=== PATIENT | female | born 1965 | race Two or more races ===

== ENCOUNTER 2020-04-18 09:12 | Emergency (ER) | payer MEDICAID, SELFPAY ==
[2020-04-18 09:27] VITALS: BP 143/84; PULSE 93; RESP 18; TEMP 37.4; O2SAT 99; BMI 59.4
--- NOTE | 2020-04-18 09:33 | ED_ITS ---
HPI - Nausea/Vomiting/Diarrhea General Chief complaint: Nausea/Vomiting/Diarrhea Stated complaint: VOMITING DIARRHEA Time Seen by Provider: 04/18/20 09:23 Source: patient Mode of arrival: ambulatory Limitations: no limitations History of Present Illness HPI Narrative: 55 yo female presenting with N/V/D that started yesterday. She was recently exposed to a person who was later found to be COVID positive and this person exhibited the same symptoms. She has mild abd discomfort that is chronic. She has not vomited since last night. She was able to eat some breakfast this morning. No other persons in the home are ill. MD elicited complaint: nausea, vomiting and diarrhea Onset (ago): day(s) (1) Related Data Previous Rx's Medication Instructions Recorded ondansetron HCl [Zofran] 4 mg PO Q8H PRN #14 tab 04/18/20 Allergies Allergy/AdvReac Type Severity Reaction Status Date / Time No Known Allergies Allergy Mild N/A Unverified 03/27/20 17:15 none Allergy Unknown Uncoded 02/18/20 00:00 Review of Systems Review of Systems: Constitutional: No Fever, No Chills ENT/Mouth: No sore throat, No Rhinorrhea, No Swallowing Difficulty Eyes: No Eye Pain, No Swelling, No Redness Cardiovascular: No Chest Pain, No SOB, No Orthopnea Respiratory: No Cough, No Sputum, No Wheezing Gastrointestinal: + Nausea, + Vomiting, + Diarrhea (once), + abdominal Pain (chronically), No Hematochezia, No Melena Genitourinary: No Dysuria, No Urinary Frequency, No Hematuria Musculoskeletal: No joint pain, + Myalgias Skin: No Skin Lesions, No rash Neuro: No Weakness, No Numbness, No Dizziness, + Headache (mild) Psych: No Anxiety/Panic, No Depression Heme/Lymph: No Bruising, No Lymphadenopathy Endocrine: No Polyuria, No Polydipsia All other 10 point ROS are negative. [facility] Past Medical History Attestation statement: The following information was validated with the patient. Medical History Diabetes Hypertension Social History Social History Smoking Status: Never smoker Use of substances other than those prescribed or required for medical reasons: No Advance Directives: No Advance Directives Information Provided: No Physical Exam Vital Signs and I&O and Narrative: Vital Signs and I&O: Vital Signs Temp 99.3 F 04/18/20 09:27 Pulse 93 04/18/20 09:27 Resp 18 04/18/20 09:27 BP 143/84 H 04/18/20 09:27 Pulse Ox 99 04/18/20 09:27 Intake & Output 04/17/20 04/18/20 04/18/20 18:59 06:59 18:59 Weight 138 kg Body Mass Index 59.4 Appearance: Alert. Oriented X3. No acute distress. Eyes: Pupils equal, round and reactive to light. ENT: Pharynx normal. Neck: Normal inspection. Neck supple. CVS: Normal heart rate and rhythm. Pulses normal. Respiratory: No respiratory distress. Breath sounds normal. Abdomen: Soft and nontender. +BS x4 Skin: Skin warm and dry. Normal skin color. Normal skin turgor. No rashes. Extremities: No lower extremity edema. Neuro: Oriented X 3. No motor deficit. No sensory deficit. Course Course Course Narrative: 55 y/o female presenting with mild GI symotoms after exposure to COVID + person who had the same symptons. She is in no distress and VSS,. Will COVID swab and d/c. She was encouraged to f/u with her PCP. MDM - Nausea/Vomiting/Diarrhea MDM Narrative Medical decision making narrative: Likely COVID-19 related given her exposure Differential Diagnosis Differential diagnosis: Likely gastroenteritis, drug-induced nausea and vomiting and dehydration Medical Records Attestation: I reviewed the patient's medical records. Discharge Plan Discharge Clinical Impression: Gastroenteritis Patient Disposition: Home, Self-Care Instructions: Acute Nausea and Vomiting (ED) Additional Instructions: You were tested for COVID-19 today. We will call you with the results in 2-4 days. If you develop shortness of breath, difficulty breathing, or chest pain call 911 or come back to the ER for evaluation. Prescriptions: New ondansetron HCl [Zofran] 4 mg tablet 4 mg PO Q8H PRN (Reason: nausea and vomiting) Qty: 14 RF: 0
== END 2020-04-18 10:03 | disposition home or self-care (01) ==
PROVIDERS: Physician Assistant; Emergency Provider Internal Medicine; PCP Internal Medicine
DX: K52.9 Noninfective gastroenteritis and colitis, unspecified (principal); Z20.828 Contact with and (suspected) exposure to other viral communicable diseases; Z79.899 Other long term (current) drug therapy
CPT/HCPCS: 87635; 99283; 99284

== ENCOUNTER 2020-05-03 09:03 | Emergency (ER) | payer MEDICAID, SELFPAY ==
[2020-05-03 09:26] VITALS: BP 147/89; PULSE 103; RESP 18; TEMP 36.8; O2SAT 96; BMI 29.2
[2020-05-03 10:00] VITALS: BP 133/80; PULSE 78; RESP 16; O2SAT 98
--- NOTE | 2020-05-03 10:19 | ED.GENADULT ---
HPI - General Adult General Chief complaint: Headache Stated complaint: HEADACHE Time Seen by Provider: 05/03/20 10:14 Source: patient Mode of arrival: ambulatory Limitations: no limitations History of Present Illness HPI narrative: patient comes to emergency room complaining of headache for 1 day and feeling tired for 3 days. Patient denies any trauma. Related Data Previous Rx's Medication Instructions Recorded ondansetron HCl [Zofran] 4 mg PO Q8H PRN #14 tab 04/18/20 Allergies Allergy/AdvReac Type Severity Reaction Status Date / Time No Known Allergies Allergy Mild N/A Unverified 03/27/20 17:15 none Allergy Unknown Uncoded 02/18/20 00:00 Review of Systems Review of Systems: Constitutional : No Weight loss, No Fever, No Chills, No Night Sweats, No Fatigue, No Malaise ENT/Mouth : No Hearing loss, No Ear Pain, No Nasal Congestion, No Sinus Pain, No Hoarseness, No sore throat, No Rhinorrhea, No Swallowing Difficulty Eyes: No Eye Pain, No Swelling, No Redness, No Foreign Body, No Discharge, No Vision Changes Cardiovascular : No Chest Pain, No SOB, No Dyspnea on Exertion, No Orthopnea, No Edema, No Palpitations Respiratory : No Cough, No Sputum, No Wheezing, No Smoke Exposure, No Dyspnea Gastrointestinal : No Nausea, No Vomiting, No Diarrhea, No Constipation, No abdominal Pain, No Hematochezia, No Melena Genitourinary : no irregular bleeding, No Dysuria, No Urinary Frequency, No Hematuria, No Urinary Incontinence, No Urgency, No Flank Pain, No Urinary Flow Changes, No Hesitancy Musculoskeletal : No joint pain, No Myalgias, No Joint Swelling Skin : No Skin Lesions, No rash Neuro : No Weakness, No Numbness, No Paresthesias, No Loss of Consciousness, No Dizziness, global headache Psych : No Anxiety/Panic, No Depression, No SI/HI/AH/VH, No Social Issues, Heme/Lymph: No Bruising, No Bleeding,No Lymphadenopathy Endocrine : No Polyuria, No Polydipsia, No Temperature Intolerance [facility] Past Medical History Medical History (Updated 05/03/20 @ 13:00 by Janell Madison MD) Asthma Depression Diabetes Epilepsy Hyperlipidemia Hypertension Social History Social History Smoking Status: Never smoker Advance Directives: No Advance Directives Information Provided: No Physical Exam Vital Signs: Vital Signs: Vital Signs Temp Pulse Resp BP Pulse Ox 05/03/20 13:16 80 16 133/83 97 05/03/20 10:00 78 16 133/80 98 05/03/20 09:26 98.3 F 103 H 18 147/89 H 96 Body Mass Index 29.2 Appearance: Alert. Oriented X3. No acute distress. Eyes: Pupils equal, round and reactive to light. seems to have photophobia ENT: Pharynx normal. Neck: Normal inspection. Neck supple. No lymph nodes noted. No crepitus CVS: Normal heart rate and rhythm. Pulses normal. Normal S1 and S2 Respiratory: No respiratory distress. Breath sounds normal. No Wheezing. No rales Abdomen: Soft and nontender. No rigidity. No distention. good BS x4 Skin: Skin warm and dry. Normal skin color. Normal skin turgor. Extremities: No lower extremity edema. No lower extremity edema. No Lacerations. No Rash Neuro: Oriented X 3. No motor deficit. No sensory deficit. Moving all extermities. No slurred speech. Course Course Course Narrative: patient feeling better, headache nearly gone, patient ready for discharge Medical Decision Making Lab Data Result diagrams: 05/03/20 10:54 05/03/20 10:54 Labs: Lab Results 05/03/20 05/03/20 05/03/20 Range/Units 10:54 10:54 10:54 WBC 8.0 (4.8-10.8) X10*3/uL RBC 4.37 (4.20-5.50) X10*6/uL Hgb 12.9 (12.0-16.0) g/dl Hct 38.8 (37-47) % MCV 88.8 (80-98) fL MCH 29.5 (27.0-33.0) pg MCHC 33.2 (31.0-35.0) g/dl RDW 12.4 (11.0-16.0) % Plt Count 246 (160-400) X10*3/uL MPV 9.9 (9.4-12.3) fL Immature Gran % (Auto) 0.4 (0.0-0.4) % Neut % (Auto) 69.0 (45-73) % Lymph % (Auto) 22.6 (20-40) % [place] % (Auto) 5.7 (2-11) % Eos % (Auto) 1.9 (0-4) % Baso % (Auto) 0.4 (0-2) % Lymph # (Auto) 1.8 (1.2-4.9) X10*3/uL [place] # (Auto) 0.5 (0.1-1.2) X10*3/uL Eos # (Auto) 0.2 (0.0-0.4) X10*3/uL Baso # (Auto) 0.0 (0.0-0.2) X10*3/uL Abs Immat Gran (auto) 0.03 (0.00-0.03) X10*3/uL Absolute Neuts (auto) 5.5 (2.0-8.3) X10*3/uL Absolute Nucleated RBC 0.000 (0.0-0.012) X10*3/uL Nucleated RBC % (auto) 0.0 (0.0-0.2) /100WBC Sodium Cancelled Potassium Cancelled Chloride Cancelled Carbon Dioxide Cancelled Anion Gap Cancelled BUN Cancelled Creatinine Cancelled Estim Creat Clear Calc Cancelled Estimated GFR Cancelled Random Glucose Cancelled Calcium Cancelled Troponin I High Sens < 3.5 (<3.5-17.0) ng/L ECG Data Attestation: I personally reviewed and interpreted this ECG as follows: ( heart rate 86, normal sinus rhythm, QTC 421, no ST segment elevations or depressions, non speciificn T -wave inversions in III) Discharge Plan Discharge Clinical Impression: Migraine Qualifiers: Migraine type: unspecified Status migrainosus presence: without status migrainosus Intractability: not intractable Qualified Code(s): G43.909 - Migraine, unspecified, not intractable, without status migrainosus Patient Disposition: Home, Self-Care Instructions: Acute Headache (ED) Additional Instructions: Please follow-up with your primary care physician tomorrow. If you have any worsening or new symptoms, please return to the emergency room or call 911 Prescriptions: No Action ondansetron HCl [Zofran] 4 mg tablet 4 mg PO Q8H PRN (Reason: nausea and vomiting) Qty: 14 RF: 0 Interventions: ED Discharge Assessment Last Done: 05/03/20 13:13 Discharge Date/Time: 05/03/20 13:21
[2020-05-03 11:02] LABS: MANUAL DIFF FLAG NO
[2020-05-03 11:05] LABS: Basophils Percent Auto 0.4 % (0-2); Eosinophils Absolute Auto 0.2 X10*3/uL (0.0-0.4); Eosinophils Percent Auto 1.9 % (0-4); Hematocrit 38.8 % (37-47); Hemoglobin 12.9 g/dl (12.0-16.0); Imm Gran Abs Auto 0.03 X10*3/uL (0.00-0.03); Imm Gran Pct Auto 0.4 % (0.0-0.4); Lymphocytes Absolute Auto 1.8 X10*3/uL (1.2-4.9); Lymphocytes Percent Auto 22.6 % (20-40); Mean Corpuscular HGB Conc 33.2 g/dl (31.0-35.0); Mean Corpuscular Hemoglobin 29.5 pg (27.0-33.0); Mean Corpuscular Volume 88.8 fL (80-98); Mean Platelet Volume 9.9 fL (9.4-12.3); Monocytes Absolute Auto 0.5 X10*3/uL (0.1-1.2); Monocytes Percent Auto 5.7 % (2-11); Neutrophils Absolute Auto 5.5 X10*3/uL (2.0-8.3); Platelet Count 246 X10*3/uL (160-400); Red Blood Count 4.37 X10*6/uL (4.20-5.50); Red Cell Distribution Width 12.4 % (11.0-16.0)
[2020-05-03] MEDS: ondansetron HCL 4 MG/2 ML VIAL IVPUSH (11:35)
[2020-05-03] MEDS: 0.9 % Sodium Chloride 1,000 ML 999 ML IVCONT (11:35)
[2020-05-03] MEDS: Ketorolac Tromethamine 15 MG/ML VIAL IVPUSH (11:36)
[2020-05-03 11:38] LABS: Troponin-I High Sensitivity < 3.5 ng/L (<3.5-17.0)
[2020-05-03] MEDS: diphenhydrAMINE HCL 50 MG/ML VIAL IVPUSH (11:38)
[2020-05-03 13:16] VITALS: BP 133/83; PULSE 80; RESP 16; O2SAT 97
== END 2020-05-03 13:21 | disposition home or self-care (01) ==
PROVIDERS: Emergency Provider Emergency Medicine
DX: G43.909 Migraine, unspecified, not intractable, without status migrainosus (principal); Z79.899 Other long term (current) drug therapy
CPT/HCPCS: 36415; 80048; 84484; 85025; 96361; 96374; 96375; 99284; J1200; J1885; J2405

== ENCOUNTER → 2020-05-22 15:49 | Outpatient (BNVA) | payer MEDICAID, SELFPAY | PROVIDERS: Visit Provider Internal Medicine Gastroenterology | DX: K21.9 Gastro-esophageal reflux disease without esophagitis (principal); K59.09 Other constipation; E11.43 Type 2 diabetes mellitus with diabetic autonomic (poly)neuropathy; K31.84 Gastroparesis; Z79.4 Long term (current) use of insulin; Z79.899 Other long term (current) drug therapy | CPT/HCPCS: 99212 ==

== ENCOUNTER 2020-06-17 12:57 | Emergency (ER) | payer MEDICAID, SELFPAY ==
[2020-06-17 13:06] VITALS: BP 164/91; PULSE 103; RESP 16; TEMP 36.5; O2SAT 95; BMI 27.4
--- NOTE | 2020-06-17 14:06 | ED_ITS ---
HPI - Extremity Injury (Lower) General Chief Complaint: Extremity Injury, Lower Stated Complaint: swollen left foot Time Seen by Provider: 06/17/20 14:04 Source: patient Mode of arrival: ambulatory Limitations: no limitations History of Present Illness HPI Narrative: states slight pain between the 4th and 5th toe and noted slight redness on top of the foot. No fever or chills. No fall or injury. she does report she walked barefoot outside her house several days ago in the rain and notices some slight callus under the foot. Onset (ago): day(s) Relieving factors: nothing Other symptoms: none Related Data Home Medications Medication Instructions Recorded Confirmed acetaminophen 500 mg capsule 500 mg PO Q6H PRN 05/22/20 05/22/20 atorvastatin 80 mg tablet 80 mg PO DAILY 05/22/20 05/22/20 canagliflozin 100 mg tablet 100 mg PO DAILY 05/22/20 05/22/20 duloxetine 60 mg capsule,delayed 60 mg PO DAILY 05/22/20 05/22/20 release fluticasone propionate 50 1 spray INTRANASAL DAILY 05/22/20 05/22/20 mcg/actuation nasal spray,suspension ibuprofen 600 mg tablet 600 mg PO Q8H PRN 05/22/20 05/22/20 insulin glargine 100 unit/mL (3 10 unit SUBCUT QPM 05/22/20 05/22/20 mL) subcutaneous pen insulin lispro 100 unit/mL 5.5 unit SUBCUT BEDTIME 05/22/20 05/22/20 subcutaneous half-unit pen levetiracetam 1,000 mg tablet 1,500 mg PO Q12H 05/22/20 05/22/20 lisinopril 2.5 mg tablet 2.5 mg PO DAILY 05/22/20 05/22/20 meclizine 25 mg tablet 25 mg PO DAILY PRN 05/22/20 05/22/20 sucralfate 100 mg/mL oral 10 ml PO BID 05/22/20 05/22/20 suspension Previous Rx's Medication Instructions Recorded ondansetron HCl [Zofran] 4 mg PO Q8H PRN #14 tab 04/18/20 omeprazole 40 mg capsule,delayed 40 mg PO BID 30 Days #60 cap 05/22/20 release cephalexin [Keflex] 500 mg PO TID 7 Days #21 cap 06/17/20 doxycycline monohydrate 100 mg PO BID 10 Days #20 cap 06/17/20 Allergies Allergy/AdvReac Type Severity Reaction Status Date / Time No Known Allergies Allergy Mild N/A Verified 06/17/20 13:09 Review of Systems Review of Systems: Constitutional: No Weight loss, No Fever, No Chills, No N ight Sweats, No Fatigue, No Malaise ENT/Mouth: No Hearing loss, No Ear Pain, No Nasal Congestion, No Sinus Pain, No Hoarseness, No sore throat Eyes: No Eye Pain, No Swelling, No Redness, No Foreign Body Cardiovascular: No Chest Pain, No SOB, No Dyspnea on Exertion, No Orthopnea Respiratory: No Cough, No Sputum, No Wheezing, No Smoke Exposure, No Dyspnea Gastrointestinal: No Nausea, No Vomiting, No Diarrhea, No Constipation, No abdominal Pain Genitourinary: no irregular bleeding, No Dysuria, No Urinary Frequency, No Hematuria Musculoskeletal: No joint pain, No Myalgias, No Joint Swelling Skin: No Skin Lesions, As noted in HPI Neuro: No Weakness, No Numbness, No Paresthesias, No Loss of Consciousness, No Dizziness, No Headache Psych: No Social Issues Heme/Lymph: No Bruising, No Bleeding,No Lymphadenopathy Endocrine: No Polyuria, No Polydipsia, No Temperature Intolerance Yes all other systems are reviewed and are negative [facility] Past Medical History Medical History Asthma Depression Diabetes Epilepsy Hyperlipidemia Hypertension Surgical History H/O section H/O esophagogastroduodenoscopy (03/14/18) History of ankle surgery Hx of colonoscopy (~06/2018) Social History Social History Alcohol intake: never Smoking Status: Never smoker Use of substances other than those prescribed or required for medical reasons: No Advance Directives: No Advance Directives Information Provided: Yes Physical Exam Vital Signs: Vital Signs: Last Vital Signs Temp 97.7 F 06/17/20 13:06 Pulse 103 H 06/17/20 13:06 Resp 16 06/17/20 13:06 BP 164/91 H 06/17/20 13:06 Pulse Ox 95 06/17/20 13:06 Body Mass Index 27.4 Reviewed Const: General: cooperative and healthy appearing; No acute distress or intoxicated appearing Nutritional Appearance: average body habitus Orientation/consciousness: patient oriented x3 HENMT: Head: Yes normal to inspection Ears: hearing grossly normal bilaterally Chest: Chest palpation & inspection: normal inspection of the chest Resp: Effort & Inspection: normal respiratory effort Cardio: Jugular venous distension: no JVD Skin: General skin exam: no rashes or lesions noted Neuro: General: patient oriented x3 Extrem: General: Yes normal to inspection Ankle/foot/toe images: 1. Area of very slight erythema with some macerated area between the toe and callus underneath on the plantar aspect smaller than a 0.5 cm annular area. This callus was de roofed using 18 gauge needle with sligh t purulent discharge. Discharge Plan Discharge Clinical Impression: Callus of foot Cellulitis Qualifiers: Site of cellulitis: extremity Site of cellulitis of extremity: lower extremity Laterality: left Qualified Code(s): L03.116 - Cellulitis of left lower limb Patient Disposition: Home, Self-Care Instructions: Cellulitis (ED) Additional Instructions: Warm compresses Epson Slat soaks take Your antibiotic as prescribed Have recheck in 2 days Return if any concerns or worsening symptoms Thank you Prescriptions: New doxycycline monohydrate 100 mg capsule 100 mg PO BID 10 Days Qty: 20 RF: 0 cephalexin [Keflex] 500 mg capsule 500 mg PO TID 7 Days Qty: 21 RF: 0 No Action ondansetron HCl [Zofran] 4 mg tablet 4 mg PO Q8H PRN (Reason: nausea and vomiting) Qty: 14 RF: 0 atorvastatin 80 mg tablet 80 mg PO DAILY RF: 0 duloxetine 60 mg capsule,delayed release(DR/EC) 60 mg PO DAILY RF: 0 sucralfate [Carafate] 100 mg/mL suspension 10 ml PO BID RF: 0 insulin lispro [Humalog Robert KwikPen U-100] 100 unit/mL insulin pen, half- unit 5.5 unit subcut BEDTIME RF: 0 Lantus Solostar U-100 Insulin 100 unit/mL (3 mL) insulin pen 10 unit subcut QPM RF: 0 ibuprofen 600 mg tablet 600 mg PO Q8H PRNRF: 0 acetaminophen [Mapap (acetaminophen)] 500 mg capsule 500 mg PO Q6H PRNRF: 0 levetiracetam 1,000 mg tablet 1,500 mg PO Q12H RF: 0 lisinopril 2.5 mg tablet 2.5 mg PO DAILY RF: 0 fluticasone propionate [Allergy Relief (fluticasone)] 50 mcg/actuation spray,suspension 1 spray intranasal DAILY RF: 0 Invokana 100 mg tablet 100 mg PO DAILY RF: 0 meclizine 25 mg tablet 25 mg PO DAILY PRN (Reason: dizziness) RF: 0 omeprazole 40 mg capsule,delayed release(DR/EC) 40 mg PO BID 30 Days Qty: 60 RF: 4 Referrals: Rachael Brown MD [Primary Care Provider] - 3 days
== END 2020-06-17 14:29 | disposition home or self-care (01) ==
PROVIDERS: Emergency Provider Emergency Medicine; PCP Internal Medicine
DX: L03.116 Cellulitis of left lower limb (principal); L84 Corns and callosities; Z79.899 Other long term (current) drug therapy
CPT/HCPCS: 99283

== ENCOUNTER 2020-07-21 13:43 | Emergency (ER) | payer MEDICAID, SELFPAY ==
[2020-07-21 14:22] VITALS: BP 158/85; PULSE 97; RESP 18; TEMP 37.2; O2SAT 99; BMI 29.2
--- NOTE | 2020-07-21 14:26 | PC.NURSE ---
SANJAY THOMPSON [employer] MECHANIC EVALUATING PATIENT IN TRIAGE. PLAN IS TO DC FROM WAITING ROOM. [place] [facility] USED FOR EVALUATION. PT AGREEABLE TO PLAN. ALERT AND ORIENTED X 3. SKIN WARM AND DRY. RESP UNLABORED. DENIES N/V. C/O PAIN FROM RIGHT BUTTOCK DOWN LEG. NEUROS WNL. NO DISTRESS NOTED. +CMS. AMBULATORY, GAIT STEADY
--- NOTE | 2020-07-21 14:31 | ED.BACK ---
HPI - Back Pain/Injury General Chief Complaint: Extremity Injury, Lower Stated Complaint: hip pain no inj Time Seen by Provider: 07/21/20 14:24 Source: patient Mode of arrival: ambulatory Limitations: no limitations History of Present Illness HPI Narrative: Right lower back pain radiating down to the right leg for past 3 days. No injury. No lower extremity swelling. No rash. No fever. No GI symptoms. MD elicited complaint: back pain Similar Symptoms Previously: Yes Work related injury: No Related Data Home Medications Medication Instructions Recorded Confirmed acetaminophen 500 mg capsule 500 mg PO Q6H PRN 05/22/20 05/22/20 atorvastatin 80 mg tablet 80 mg PO DAILY 05/22/20 05/22/20 canagliflozin 100 mg tablet 100 mg PO DAILY 05/22/20 05/22/20 duloxetine 60 mg capsule,delayed 60 mg PO DAILY 05/22/20 05/22/20 release fluticasone propionate 50 1 spray INTRANASAL DAILY 05/22/20 05/22/20 mcg/actuation nasal spray,suspension ibuprofen 600 mg tablet 600 mg PO Q8H PRN 05/22/20 05/22/20 insulin glargine 100 unit/mL (3 10 unit SUBCUT QPM 05/22/20 05/22/20 mL) subcutaneous pen insulin lispro 100 unit/mL 5.5 unit SUBCUT BEDTIME 05/22/20 05/22/20 subcutaneous half-unit pen levetiracetam 1,000 mg tablet 1,500 mg PO Q12H 05/22/20 05/22/20 lisinopril 2.5 mg tablet 2.5 mg PO DAILY 05/22/20 05/22/20 meclizine 25 mg tablet 25 mg PO DAILY PRN 05/22/20 05/22/20 sucralfate 100 mg/mL oral 10 ml PO BID 05/22/20 05/22/20 suspension Previous Rx's Medication Instructions Recorded ondansetron HCl [Zofran] 4 mg PO Q8H PRN #14 tab 04/18/20 omeprazole 40 mg capsule,delayed 40 mg PO BID 30 Days #60 cap 05/22/20 release cephalexin [Keflex] 500 mg PO TID 7 Days #21 cap 06/17/20 doxycycline monohydrate 100 mg PO BID 10 Days #20 cap 06/17/20 cyclobenzaprine 5 mg PO TID PRN #14 tab 07/21/20 lidocaine 1 patch TOPICAL Q24H PRN 10 Days 07/21/20 ea naproxen 500 mg PO BID PRN #14 tab 07/21/20 naproxen 500 mg PO BID PRN #14 tab 07/21/20 Allergies Allergy/AdvReac Type Severity Reaction Status Date / Time No Known Allergies Allergy Mild N/A Verified 06/17/20 13:09 Review of Systems Review of Systems: Constitutional: No Weight loss, No Fever, No Chills, No Night Sweats, No Fatigue, No Malaise ENT/Mouth: No Hearing loss, No Ear Pain, No Nasal Congestion, No Sinus Pain, No Hoarseness, No sore throat, No Rhinorrhea, No Swallowing Difficulty Eyes: No Eye Pain, No Swelling, No Redness, No Foreign Body, No Discharge, No Vision Changes Cardiovascular: No Chest Pain, No SOB, No Dyspnea on Exertion, No Orthopnea, No Edema, No Palpitations Respiratory: No Cough, No Sputum, No Wheezing, No Smoke Exposure, No Dyspnea Gastrointestinal: No Nausea, No Vomiting, No Diarrhea, No Constipation, No abdominal Pain, No Hematochezia, No Melena Genitourinary: no irregular bleeding, No Dysuria, No Urinary Frequency, No Hematuria, No Urinary Incontinence, No Urgency, No Flank Pain, No Urinary Flow Changes Musculoskeletal: No joint pain, No Myalgias, No Joint Swelling, as noted in HPI Skin: No Skin Lesions, No rash Neuro: No Weakness, No Numbness, No Paresthesias, No Loss of Consciousness, No Dizziness, No Headache Psych: No Social Issues Heme/Lymph: No Bruising, No Bleeding,No Lymphadenopathy Endocrine: No Polyuria, No Polydipsia, No Temperature Intolerance Yes all other systems are reviewed and are negative [facility] Past Medical History Medical History Asthma Depression Diabetes Epilepsy Hyperlipidemia Hypertension Surgical History H/O section H/O esophagogastroduodenoscopy (03/14/18) History of ankle surgery Hx of colonoscopy (~06/2018) Social History Social History Alcohol intake: never Smoking Status: Never smoker Advance Directives: No Advance Directives Information Provided: Yes Physical Exam Vital Signs: Vital Signs: Last Vital Signs Temp 99.0 F 07/21/20 14:22 Pulse 97 07/21/20 14:22 Resp 18 07/21/20 14:22 BP 158/85 H 07/21/20 14:22 Pulse Ox 99 07/21/20 14:22 Body Mass Index 29.2 Reviewed Const: General: cooperative and healthy appearing; No acute distress or intoxicated appearing Nutritional Appearance: average body habitus Orientation/consciousness: patient oriented x3 Neck: Neck: Yes normal visual inspection, No positive Brudzinski's sign, No positive Kernig's sign and No tender Thyroid: Thyroid normal Chest: Chest palpation & inspection: normal inspection of the chest Resp: Effort & Inspection: normal respiratory effort Auscultation: clear to auscultation bilaterally Cardio: Jugular venous distension: no JVD Rhythm: regular rhythm Heart sounds: S1 normal heart sound present and S2 normal heart sound present GI: Inspection: Yes normal to inspection Percussion: Yes normal to percussion Auscultation: normal bowel sounds : General: Yes no CVA tenderness Back/Spine/Pelvis: Other: Mild soft tissue to palpation over the right lower paraspinal muscle. Lower extremity neurovascular intact. Negative Homans. Positive leg lift on the right side at 65 degrees. Back: no CVA tenderness Skin: General skin exam: no rashes or lesions noted Neuro: General: patient oriented x3 Extrem: General: Yes normal to inspection Discharge Plan Discharge Clinical Impression: Sciatica of right side Patient Disposition: Home, Self-Care Instructions: Sciatica (ED), Lower Back Exercises (ED) Prescriptions: New lidocaine 4 % adhesive patch,medicated 1 patch topical Q24H PRN (Reason: pain) 10 Days RF: 0 cyclobenzaprine 5 mg tablet 5 mg PO TID PRN (Reason: muscle spasm) Qty: 14 RF: 0 naproxen 500 mg tablet 500 mg PO BID PRN (Reason: pain) Qty: 14 RF: 0 naproxen 500 mg tablet 500 mg PO BID PRN (Reason: pain) Qty: 14 RF: 0 No Action doxycycline monohydrate 100 mg capsule 100 mg PO BID 10 Days Qty: 20 RF: 0 cephalexin [Keflex] 500 mg capsule 500 mg PO TID 7 Days Qty: 21 RF: 0 ondansetron HCl [Zofran] 4 mg tablet 4 mg PO Q8H PRN (Reason: nausea and vomiting) Qty: 14 RF: 0 atorvastatin 80 mg tablet 80 mg PO DAILY RF: 0 duloxetine 60 mg capsule,delayed release(DR/EC) 60 mg PO DAILY RF: 0 sucralfate [Carafate] 100 mg/mL suspension 10 ml PO BID RF: 0 insulin lispro [Humalog Robert KwikPen U-100] 100 unit/mL insulin pen, half-unit 5.5 unit subcut BEDTIME RF: 0 Lantus Solostar U-100 Insulin 100 unit/mL (3 mL) insulin pen 10 unit subcut QPM RF: 0 ibuprofen 600 mg tablet 600 mg PO Q8H PRNRF: 0 acetaminophen [Mapap (acetaminophen)] 500 mg capsule 500 mg PO Q6H PRNRF: 0 levetiracetam 1,000 mg tablet 1,500 mg PO Q12H RF: 0 lisinopril 2.5 mg tablet 2.5 mg PO DAILY RF: 0 fluticasone propionate [Allergy Relief (fluticasone)] 50 mcg/actuation spray,suspension 1 spray intranasal DAILY RF: 0 Invokana 100 mg tablet 100 mg PO DAILY RF: 0 meclizine 25 mg tablet 25 mg PO DAILY PRN (Reason: dizziness) RF: 0 omeprazole 40 mg capsule,delayed release(DR/EC) 40 mg PO BID 30 Days Qty: 60 RF: 4 Referrals: Katie Teixeira MD [Primary Care Provider] - 1 week
== END 2020-07-21 14:56 | disposition home or self-care (01) ==
PROVIDERS: Emergency Provider Emergency Medicine; PCP Internal Medicine
DX: M54.41 Lumbago with sciatica, right side (principal); E11.9 Type 2 diabetes mellitus without complications; I10 Essential (primary) hypertension
CPT/HCPCS: 99283

== ENCOUNTER 2020-08-02 08:13 | Emergency (ER) | payer MEDICAID, SELFPAY ==
[2020-08-02 08:45] VITALS: BP 152/88; PULSE 99; RESP 16; TEMP 36.9; O2SAT 100; BMI 30.9
--- NOTE | 2020-08-02 08:55 | ED_ITS ---
HPI - Skin/Abscess/Foreign Bdy General Chief complaint: Skin/Abscess/Foreign Body Stated complaint: multiple cysts Time Seen by Provider: 08/02/20 08:55 Source: patient Mode of arrival: ambulatory History of Present Illness HPI narrative: 55-year-old female with a past medical history of asthma, depression, diabetes, epilepsy, hyperlipidemia, hypertension presenting to the ED complaining to assist/abscesses to rectal area and labia x5 days. Admits to similar symptoms in the past. Denies fever, chills, drainage from area, abdominal pain, nausea/vomiting Related Data Home Medications Medication Instructions Recorded Confirmed acetaminophen 500 mg capsule 500 mg PO Q6H PRN 05/22/20 05/22/20 atorvastatin 80 mg tablet 80 mg PO DAILY 05/22/20 05/22/20 canagliflozin 100 mg tablet 100 mg PO DAILY 05/22/20 05/22/20 duloxetine 60 mg capsule,delayed 60 mg PO DAILY 05/22/20 05/22/20 release fluticasone propionate 50 1 spray INTRANASAL DAILY 05/22/20 05/22/20 mcg/actuation nasal spray,suspension ibuprofen 600 mg tablet 600 mg PO Q8H PRN 05/22/20 05/22/20 insulin glargine 100 unit/mL (3 10 unit SUBCUT QPM 05/22/20 05/22/20 mL) subcutaneous pen insulin lispro 100 unit/mL 5.5 unit SUBCUT BEDTIME 05/22/20 05/22/20 subcutaneous half-unit pen levetiracetam 1,000 mg tablet 1,500 mg PO Q12H 05/22/20 05/22/20 lisinopril 2.5 mg tablet 2.5 mg PO DAILY 05/22/20 05/22/20 meclizine 25 mg tablet 25 mg PO DAILY PRN 05/22/20 05/22/20 sucralfate 100 mg/mL oral 10 ml PO BID 05/22/20 05/22/20 suspension Previous Rx's Medication Instructions Recorded ondansetron HCl [Zofran] 4 mg PO Q8H PRN #14 tab 04/18/20 omeprazole 40 mg capsule,delayed 40 mg PO BID 30 Days #60 cap 05/22/20 release cephalexin [Keflex] 500 mg PO TID 7 Days #21 cap 06/17/20 doxycycline monohydrate 100 mg PO BID 10 Days #20 cap 06/17/20 cyclobenzaprine 5 mg PO TID PRN #14 tab 07/21/20 lidocaine 1 patch TOPICAL Q24H PRN 10 Days 07/21/20 ea naproxen 500 mg PO BID PRN #14 tab 07/21/20 naproxen 500 mg PO BID PRN #14 tab 07/21/20 cephalexin [Keflex] 500 mg PO Q6H 7 Days #28 cap 08/02/20 sulfamethoxazole-trimethoprim 1 tab PO Q12H 7 Days #14 tab 08/02/20 [Bactrim DS] Allergies Allergy/AdvReac Type Severity Reaction Status Date / Time No Known Allergies Allergy Mild N/A Verified 06/17/20 13:09 Review of Systems Review of Systems: Constitutional: No Weight loss, No Fever, No Chills Gastrointestinal: No Nausea, No Vomiting, No Diarrhea, No Constipation, No Abdominal pain Genitourinary: No Dysuria, No Hematuria Musculoskeletal: No joint pain, No Myalgias, No Joint Swelling Skin: +cyst Yes all other systems are reviewed and are negative [facility] Past Medical History Attestation statement: The following information was validated with the patient. Medical History Asthma Depression Diabetes Epilepsy Hyperlipidemia Hypertension Surgical History H/O section H/O esophagogastroduodenoscopy (03/14/18) History of ankle surgery Hx of colonoscopy (~06/2018) Social History Social History Alcohol intake: never Smoking Status: Never smoker Advance Directives: No Advance Directives Information Provided: No Physical Exam Vital Signs: Vital Signs: Last Vital Signs Temp 98.4 F 08/02/20 08:45 Pulse 99 08/02/20 08:45 Resp 16 08/02/20 08:45 BP 152/88 H 08/02/20 08:45 Pulse Ox 100 08/02/20 08:45 Body Mass Index 30.9 Const: General: cooperative and healthy appearing [place] ation/consciousness: patient oriented x3 Limitations: no limitations HENMT: Head: Yes normal to inspection Ears: hearing grossly normal bilaterally General nose exam: Normal external nose present Face and sinus: Yes normal facial exam Eyes: General: appearance normal, both eyes and all related structures EOM: EOMs intact bilaterally Neck: Neck: Yes normal visual inspection Resp: Effort & Inspection: normal respiratory effort Cardio: Rate: regular rate GI: Inspection: Yes normal to inspection Palpation (GI): Soft to palpation, nontender, no guarding and not rigid : Other: +small hard indurated abscess noted to L buttock. No rectal involvement. +small hard indurated abscess noted to left inner labia Neither with surrounding erythema/cellulitis, fluctuance, streaking, or drainage General: Yes no CVA tenderness Back/Spine/Pelvis: Back: no CVA tenderness Skin: Rashes: no rashes Neuro: General: patient oriented x3 Gait exam (Neuro): Normal gait present Extrem: General: Yes normal to inspection MDM - Skin/Abscess/Foreign Bdy MDM Narrative Medical decision making narrative: On exam VSS, NAD/nontoxic appearing, to indurated abscess is noted without surrounding cellulitis or fluctuance. Will give p.o. antibiotics recommended close follow-up. Worrisome signs and symptoms and strict return precautions discussed with textile technical officer. Patient verbalized understanding of feel safe for discharge home Medical Records Attestation: I reviewed the patient's medical records. Discharge Plan Discharge Clinical Impression: Abscess Patient Disposition: Home, Self-Care Instructions: Abscess (ED) Additional Instructions: You have to hard abscesses. Bactrim and Keflex for antibiotics, take as prescribed. The antibiotics may completely take care of the infection, or may make the infection softer and drainable. If areas come to a gramajo, begin to drain, becomes soft, turn red, or you have fever return to the ED immediately. Tienes abscesos duros. Bactrim y Keflex para antibi?ticos, t?melos seg?n lo prescrito. Los antibi?ticos pueden curar completamente la infecci?n, o pueden hacer que la infecci?n sea m?s suave y drenable. Si las ?reas se vuelven filomena, comienzan a drenar, se ablandan, se enrojecen o tiene fiebre, regrese al servicio de urgencias inmediatamente. Prescriptions: New sulfamethoxazole-trimethoprim [Bactrim DS] 800-160 mg tablet 1 tab PO Q12H 7 Days Qty: 14 RF: 0 cephalexin [Keflex] 500 mg capsule 500 mg PO Q6H 7 Days Qty: 28 RF: 0 No Action doxycycline monohydrate 100 mg capsule 100 mg PO BID 10 Days Qty: 20 RF: 0 cephalexin [Keflex] 500 mg capsule 500 mg PO TID 7 Days Qty: 21 RF: 0 lidocaine 4 % adhesive patch,medicated 1 patch topical Q24H PRN (Reason: pain) 10 Days RF: 0 cyclobenzaprine 5 mg tablet 5 mg PO TID PRN (Reason: muscle spasm) Qty: 14 RF: 0 naproxen 500 mg tablet 500 mg PO BID PRN (Reason: pain) Qty: 14 RF: 0 naproxen 500 mg tablet 500 mg PO BID PRN (Reason: pain) Qty: 14 RF: 0 ondansetron HCl [Zofran] 4 mg tablet 4 mg PO Q8H PRN (Reason: nausea and vomiting) Qty: 14 RF: 0 atorvastatin 80 mg tablet 80 mg PO DAILY RF: 0 duloxetine 60 mg capsule,delayed release(DR/EC) 60 mg PO DAILY RF: 0 sucralfate [Carafate] 100 mg/mL suspension 10 ml PO BID RF: 0 insulin lispro [Humalog Robert KwikPen U-100] 100 unit/mL insulin pen, half- unit 5.5 unit subcut BEDTIME RF: 0 Lantus Solostar U-100 Insulin 100 unit/mL (3 mL) insulin pen 10 unit subcut QPM RF: 0 ibuprofen 600 mg tablet 600 mg PO Q8H PRNRF: 0 acetaminophen [Mapap (acetaminophen)] 500 mg capsule 500 mg PO Q6H PRNRF: 0 levetiracetam 1,000 mg tablet 1,500 mg PO Q12H RF: 0 lisinopril 2.5 mg tablet 2.5 mg PO DAILY RF: 0 fluticasone propionate [Allergy Relief (fluticasone)] 50 mcg/actuation spray,suspension 1 spray intranasal DAILY RF: 0 Invokana 100 mg tablet 100 mg PO DAILY RF: 0 meclizine 25 mg tablet 25 mg PO DAILY PRN (Reason: dizziness) RF: 0 omeprazole 40 mg capsule,delayed release(DR/EC) 40 mg PO BID 30 Days Qty: 60 RF: 4 Referrals: Rachael Brown MD [Primary Care Provider] - 2 days Print Language: Greek
== END 2020-08-02 09:14 | disposition home or self-care (01) ==
PROVIDERS: Emergency Provider Internal Medicine; PCP Internal Medicine
DX: K61.1 Rectal abscess (principal); N76.4 Abscess of vulva; F33.1 Major depressive disorder, recurrent, moderate; I10 Essential (primary) hypertension; Z79.899 Other long term (current) drug therapy
CPT/HCPCS: 99283

== ENCOUNTER 2020-08-28 11:56 | Outpatient (REF) | payer MEDICAID, SELFPAY | END 2020-08-28 11:57 | disposition home or self-care (01) | LOC: HO.LAB 11:56 | PROVIDERS: Visit Provider Internal Medicine | DX: Z20.822 Contact with and (suspected) exposure to COVID-19 (principal) | CPT/HCPCS: 36415; C9803; U0003; U0005 ==

== ENCOUNTER 2020-08-29 11:21 | Emergency (ER) | payer MEDICAID, SELFPAY ==
--- NOTE | ~2020-08-29 | CT_ITS ---
EXAMINATION: CT ABDOMEN AND PELVIS WITHOUT CONTRAST CLINICAL INFORMATION: Right-sided abdominal/flank pain COMPARISON: 11/22/2019 TECHNIQUE: Multidetector volumetric imaging was performed from the superior aspect of the liver through the pubic symphysis. Sagittal and coronal reformatted images were obtained on the technologist's workstation. This CT examination was performed using dose optimization techniques as appropriate, variously including the following: *Automated exposure control *Adjustment of mA and/or kV according to patient size (this includes techniques or standardized protocols for targeted exams where dose is matched to indication/reason for exam; i.e. extremities or head) *Use of iterative reconstruction technique DLP: 654 mGy-cm FINDINGS: LUNG BASES: The visualized lung bases are unremarkable. LIVER, GALLBLADDER, AND BILIARY TREE: The liver is normal in size, shape, and attenuation. No focal hepatic lesion or biliary ductal dilatation is present. The gallbladder is unremarkable with no evidence of radiopaque gallstones, gallbladder wall thickening, or obvious pericholecystic inflammatory changes. PANCREAS: Unremarkable. SPLEEN: Unremarkable. ADRENAL GLANDS: Unremarkable. KIDNEYS AND URETERS: The kidneys are normal in size, shape, and attenuation. No hydronephrosis, hydroureter, or calculi seen. No perinephric stranding. BLADDER: Unremarkable. GASTROINTESTINAL TRACT: The small and large bowel are unremarkable. The appendix is unremarkable. ABDOMINAL WALL: Small fat-containing umbilical hernia. LYMPH NODES: Normal. VASCULAR: Unremarkable. PELVIC VISCERA: Bilobed left ovarian cyst. The left ovary measures 3.2 cm in greatest dimension. No right adnexal mass. Normal uterus. OSSEOUS STRUCTURES: Multilevel degenerative changes CT/CT abdomen pelvis wo con IMPRESSION: No acute CT finding. Normal appendix. No colitis. No evidence of obstructive uropathy.
[2020-08-29 11:33] VITALS: BP 157/86; PULSE 92; RESP 16; TEMP 36.2; O2SAT 99; BMI 27.1
[2020-08-29 12:49] LABS: MANUAL DIFF FLAG NO
[2020-08-29 12:52] LABS: Basophils Percent Auto 0.4 % (0-2); Eosinophils Absolute Auto 0.2 X10*3/uL (0.0-0.4); Eosinophils Percent Auto 2.5 % (0-4); Hematocrit 39.1 % (37-47); Hemoglobin 12.9 g/dl (12.0-16.0); Imm Gran Abs Auto 0.03 X10*3/uL (0.00-0.03); Imm Gran Pct Auto 0.4 % (0.0-0.4); Lymphocytes Absolute Auto 1.8 X10*3/uL (1.2-4.9); Mean Corpuscular Hemoglobin 29.5 pg (27.0-33.0); Mean Corpuscular Volume 89.3 fL (80-98); Mean Platelet Volume 9.5 fL (9.4-12.3); Monocytes Absolute Auto 0.4 X10*3/uL (0.1-1.2); Monocytes Percent Auto 4.9 % (2-11); Neutrophils Absolute Auto 5.1 X10*3/uL (2.0-8.3); Neutrophils Percent Auto 67.8 % (45-73); Platelet Count 267 X10*3/uL (160-400); Red Blood Count 4.38 X10*6/uL (4.20-5.50); Red Cell Distribution Width 12.5 % (11.0-16.0); White Blood Count 7.6 X10*3/uL (4.8-10.8)
[2020-08-29 12:59] LABS: INTERNATIONAL NORM RATIO 0.9 (0.9-1.1); Prothrombin Time 10.8 SEC (10.8-13.0)
[2020-08-29 13:02] LABS: Partial Thromboplastin Time 30.8 SEC (24.1-38.0)
[2020-08-29 13:27] LABS: Alanine Aminotransferase 21 U/L (0-31); Albumin Level 3.7 g/dL (3.5-5.0); Alkaline Phosphatase 125 U/L (39-117); Anion Gap 13 (12-20); Aspartate Amino Transferase 11 U/L (5-31); Bilirubin Total 0.6 mg/dL (0.0-1.0); Blood Urea Nitrogen 16 mg/dL (9-16); Carbon Dioxide 27 mmol/L (22-29); Chloride 100 mmol/L (96-108); Creatinine Clr Calc Pharmacy 65.3; Estimated Glomerular Filt Rate > 60; Potassium 4.5 mmol/L (3.3-5.1); Sodium 135 mmol/L (135-145); Total Protein 6.9 g/dL (6.5-8.0)
[2020-08-29 13:28] LABS: Glucose Random 424 mg/dL (60-115)
--- NOTE | 2020-08-29 14:44 | ED_ITS ---
HPI - General Adult General Chief complaint: General Medical Stated complaint: COVID SYMPTONS Time Seen by Provider: 08/29/20 11:55 Source: patient Mode of arrival: ambulatory Limitations: language barrier (global security architect present for all interactions) History of Present Illness HPI narrative: This is a 55-year-old female with past medical history as noted below including history of insulin dependent diabetes who admits some compliance issues with her insulin forgets to take her insulin at times, asthma, hyperlipidemia, hypertension, epilepsy, depression being followed by GI for chronic constipation/GERD issues has had section, EGD, colonoscopy who presents today with complaint of right-sided lower flank/abdomen pain. States she had COVID test for upper respiratory symptoms yesterday she is awaiting results for this but those symptoms are better however for the past month or so has had right lower flank pain as well as right-sided abdomen pain intermittently with certain movements and is not sure what is causing this. She admits to being seen here in emergency room for this in the past however she feels that she was told was muscle related and feels it might not just be a mus abhilash. She otherwise denies any nausea or vomiting or diarrhea. Last bowel movement was this a.m. formed nathen bailey. Onset (ago): month(s) Severity: moderate Quality: aching Pain Consistency: intermittent Relieving factors: none Exacerbating factors: none Associated symptoms: denies other symptoms Treatments prior to arrival: none Related Data Home Medications Medication Instructions Recorded Confirmed acetaminophen 500 mg capsule 500 mg PO Q6H PRN 05/22/20 05/22/20 atorvastatin 80 mg tablet 80 mg PO DAILY 05/22/20 05/22/20 canagliflozin 100 mg tablet 100 mg PO DAILY 05/22/20 05/22/20 duloxetine 60 mg capsule,delayed 60 mg PO DAILY 05/22/20 05/22/20 release fluticasone propionate 50 1 spray INTRANASAL DAILY 05/22/20 05/22/20 mcg/actuation nasal spray,suspension ibuprofen 600 mg tablet 600 mg PO Q8H PRN 05/22/20 05/22/20 insulin glargine 100 unit/mL (3 10 unit SUBCUT QPM 05/22/20 05/22/20 mL) subcutaneous pen insulin lispro 100 unit/mL 5.5 unit SUBCUT BEDTIME 05/22/20 05/22/20 subcutaneous half-unit pen levetiracetam 1,000 mg tablet 1,500 mg PO Q12H 05/22/20 05/22/20 lisinopril 2.5 mg tablet 2.5 mg PO DAILY 05/22/20 05/22/20 meclizine 25 mg tablet 25 mg PO DAILY PRN 05/22/20 05/22/20 sucralfate 100 mg/mL oral 10 ml PO BID 05/22/20 05/22/20 suspension Previous Rx's Medication Instructions Recorded ondansetron HCl [Zofran] 4 mg PO Q8H PRN #14 tab 04/18/20 omeprazole 40 mg capsule,delayed 40 mg PO BID 30 Days #60 cap 05/22/20 release cephalexin [Keflex] 500 mg PO TID 7 Days #21 cap 06/17/20 doxycycline monohydrate 100 mg PO BID 10 Days #20 cap 06/17/20 cyclobenzaprine 5 mg PO TID PRN #14 tab 07/21/20 lidocaine 1 patch TOPICAL Q24H PRN 10 Days 07/21/20 ea naproxen 500 mg PO BID PRN #14 tab 07/21/20 naproxen 500 mg PO BID PRN #14 tab 07/21/20 cephalexin [Keflex] 500 mg PO Q6H 7 Days #28 cap 08/02/20 sulfamethoxazole-trimethoprim 1 tab PO Q12H 7 Days #14 tab 08/02/20 [Bactrim DS] Allergies Allergy/AdvReac Type Severity Reaction Status Date / Time No Known Allergies Allergy Mild N/A Verified 06/17/20 13:09 Review of Systems Review of Systems: Constitutional: No Weight loss, No Fever, No Chills, No Night Sweats, No Fatigue, No Malaise ENT/Mouth: No Hearing loss, No Ear Pain, No Nasal Congestion, No Sinus Pain, No Hoarseness, No sore throat, No Rhinorrhea, No Swallowing Difficulty Eyes: No Eye Pain, No Swelling, No Redness, No Foreign Body, No Discharge, No Vision Changes Cardiovascular: No Chest Pain, No SOB, No Dyspnea on Exertion, No Orthopnea, No Edema, No Palpitations Respiratory: No Cough, No Sputum, No Wheezing, No Smoke Exposure, No Dyspnea Gastrointestinal: As noted per HPI, No Hematochezia, No Melena Genitourinary: no irregular bleeding, No Dysuria, No Urinary Frequency, No Hematuria, No Urinary Incontinence, No Urgency, No Flank Pain, No Urinary Flow Changes, No Hesitancy Musculoskeletal: No joint pain, No Myalgias, No Joint Swelling Skin: No Skin Lesions, No rash Neuro: No Weakness, No Numbness, No Paresthesias, No Loss of Consciousness, No Dizziness, No Headache Psych: Admits to some anxiety about health Heme/Lymph: No Bruising, No Bleeding,No Lymphadenopathy Endocrine: No Polyuria, No Polydipsia, No Temperature Intolerance Yes all other systems are reviewed and are negative [facility] Past Medical History Medical History Asthma Depression Diabetes Epilepsy Hyperlipidemia Hypertension Surgical History H/O section H/O esophagogastroduodenoscopy (03/14/18) History of ankle surgery Hx of colonoscopy (~06/2018) Social History Social History Alcohol intake: never Smoking Status: Never smoker Advance Directives: No Advance Directives Information Provided: No Physical Exam Vital Signs: Vital Signs: Last Vital Signs Temp 97.2 F 08/29/20 11:33 Pulse 92 08/29/20 11:33 Resp 16 08/29/20 11:33 BP 157/86 H 08/29/20 11:33 Pulse Ox 99 08/29/20 11:33 Body Mass Index 27.1 Reviewed Const: General: cooperative and healthy appearing; No acute distress or intoxicated appearing Nutritional Appearance: average body habitus Orientation/consciousness: patient oriented x3 HENMT: Head: Yes normal to inspection Ears: hearing grossly normal bilaterally Eyes: General: appearance normal, both eyes and all related structures Visual [place]: normal visual alvarenga by confrontation Neck: Neck: Yes normal visual inspection, No positive Brudzinski's sign, No positive Kernig's sign and No tender Thyroid: Thyroid normal Chest: Chest palpation & inspection: normal inspection of the chest Resp: Effort & Inspection: normal respiratory effort Auscultation: clear to auscultation bilaterally Cardio: Jugular venous distension: no JVD Rhythm: regular rhythm Heart sounds: S1 normal heart sound present and S2 normal heart sound present GI: Inspection: Yes normal to inspection Palpation (GI): Soft to palpation, nontender and no guarding Percussion: Yes normal to percussion Auscultation: normal bowel sounds : General: Yes CVA tenderness on the right and diffuse Back/Spine/Pelvis: Other: Diffuse paraspinous muscle tenderness in the lower lumbar region. No rash or ecchymosis or crepitus. Skin: General skin exam: no rashes or lesions noted Neuro: General: patient oriented x3 Extrem: General: Yes normal to inspection Course Course Course Narrative: Musculoskeletal versus renal calculi less likely acute colon and appy. Will check labs, UA consider abdominal pelvis CT. Will treat with NSAIDs. Check the status of COVID swab is still pending. Reevaluation(s) Reevaluation #1: Hyperosmolar hyperglycemia without evidence of diabetic ketoacidosis compliance issues with her insulin. Educated on proper antihyperglycemic medication use and its importance and long-term complications. Medical Decision Making Medical Records Medical records reviewed: Yes I reviewed the patient's medical records. Lab Data Result diagrams: 08/29/20 12:41 08/29/20 12:41 Labs: Lab Results 08/29/20 08/29/20 08/29/20 Range/Units 12:41 12:41 12:41 WBC 7.6 (4.8-10.8) X10*3/uL RBC 4.38 (4.20-5.50) X10*6/uL Hgb 12.9 (12.0-16.0) g/dl Hct 39.1 (37-47) % MCV 89.3 (80-98) fL MCH 29.5 (27.0-33.0) pg MCHC 33.0 (31.0-35.0) g/dl RDW 12.5 (11.0-16.0) % Plt Count 267 (160-400) X10*3/uL MPV 9.5 (9.4-12.3) fL Immature Gran % (Auto) 0.4 (0.0-0.4) % Neut % (Auto) 67.8 (45-73) % Lymph % (Auto) 24.0 (20-40) % Grainger % (Auto) 4.9 (2-11) % Eos % (Auto) 2.5 (0-4) % Baso % (Auto) 0.4 (0-2) % Lymph # (Auto) 1.8 (1.2-4.9) X10*3/uL Grainger # (Auto) 0.4 (0.1-1.2) X10*3/uL Eos # (Auto) 0.2 (0.0-0.4) X10*3/uL Baso # (Auto) 0.0 (0.0-0.2) X10*3/uL Abs Immat Gran (auto) 0.03 (0.00-0.03) X10*3/uL Absolute Neuts (auto) 5.1 (2.0-8.3) X10*3/uL Absolute Nucleated RBC 0.000 (0.0-0.012) X10*3/uL Nucleated RBC % (auto) 0.0 (0.0-0.2) /100WBC PT 10.8 (10.8-13.0) SEC INR 0.9 (0.9-1.1) APTT 30.8 (24.1-38.0) SEC Sodium 135 (135-145) mmol/L Potassium 4.5 (3.3-5.1) mmol/L Chloride 100 (96-108) mmol/L Carbon Dioxide 27 (22-29) mmol/L Anion Gap 13 (12-20) BUN 16 (9-16) mg/dL Creatinine 0.92 (0.5-1.4) mg/dL Estim Creat Clear Calc 65.3 Estimated GFR > 60 Random Glucose 424 H* (60-115) mg/dL Calcium 9.0 (8.4-10.2) mg/dL Total Bilirubin 0.6 (0.0-1.0) mg/dL AST 11 (5-31) U/L ALT 21 (0-31) U/L Alkaline Phosphatase 125 H (39-117) U/L Total Protein 6.9 (6.5-8.0) g/dL Albumin 3.7 (3.5-5.0) g/dL Discharge Plan Discharge Clinical Impression: Chronic hyperglycemia, Diabetes, Chronic flank pain Patient Disposition: Home, Self-Care Instructions: Flank Pain (ED), Diabetes and Nutrition (ED), Type 2 Diabetes Management for Adults (ED) Additional Instructions: Please take her diabetic medication as prescribed Have better control of your blood glucose level this can be best achieved through taking medications as prescribed, having a diabetic diet, exercise and weight loss. I would like for you to follow-up with her primary care doctor in regards to her blood sugar and diabetes management in the next 3-5 days As far as it relates to your right-sided flank pain this is likely musculoskeletal your blood work is overall stable. CT scan of your abdomen pelvis did not show any acute findings. Return if any concerns or worsening symptoms otherwise follow-up as instructed Thank you Prescriptions: No Action doxycycline monohydrate 100 mg capsule 100 mg PO BID 10 Days Qty: 20 RF: 0 cephalexin [Keflex] 500 mg capsule 500 mg PO TID 7 Days Qty: 21 RF: 0 lidocaine 4 % adhesive patch,medicated 1 patch topical Q24H PRN (Reason: pain) 10 Days RF: 0 cyclobenzaprine 5 mg tablet 5 mg PO TID PRN (Reason: muscle spasm) Qty: 14 RF: 0 naproxen 500 mg tablet 500 mg PO BID PRN (Reason: pain) Qty: 14 RF: 0 naproxen 500 mg tablet 500 mg PO BID PRN (Reason: pain) Qty: 14 RF: 0 ondansetron HCl [Zofran] 4 mg tablet 4 mg PO Q8H PRN (Reason: nausea and vomiting) Qty: 14 RF: 0 sulfamethoxazole-trimethoprim [Bactrim DS] 800-160 mg tablet 1 tab PO Q12H 7 Days Qty: 14 RF: 0 cephalexin [Keflex] 500 mg capsule 500 mg PO Q6H 7 Days Qty: 28 RF: 0 atorvastatin 80 mg tablet 80 mg PO DAILY RF: 0 duloxetine 60 mg capsule,delayed release(DR/EC) 60 mg PO DAILY RF: 0 sucralfate [Carafate] 100 mg/mL suspension 10 ml PO BID RF: 0 insulin lispro [Humalog Robert KwikPen U-100] 100 unit/mL insulin pen, half- unit 5.5 unit subcut BEDTIME RF: 0 Lantus Solostar U-100 Insulin 100 unit/mL (3 mL) insulin pen 10 unit subcut QPM RF: 0 ibuprofen 600 mg tablet 600 mg PO Q8H PRNRF: 0 acetaminophen [Mapap (acetaminophen)] 500 mg capsule 500 mg PO Q6H PRNRF: 0 levetiracetam 1,000 mg tablet 1,500 mg PO Q12H RF: 0 lisinopril 2.5 mg tablet 2.5 mg PO DAILY RF: 0 fluticasone propionate [Allergy Relief (fluticasone)] 50 mcg/actuation spray,suspension 1 spray intranasal DAILY RF: 0 Invokana 100 mg tablet 100 mg PO DAILY RF: 0 meclizine 25 mg tablet 25 mg PO DAILY PRN (Reason: dizziness) RF: 0 omeprazole 40 mg capsule,delayed release(DR/EC) 40 mg PO BID 30 Days Qty: 60 RF: 4 Referrals: [facility] [Primary Care Provider] - 2 days Interventions: ED Discharge Assessment Last Done: 08/29/20 15:16 Discharge Date/Time: 08/29/20 15:17
== END 2020-08-29 15:17 | disposition home or self-care (01) ==
PROVIDERS: Nurse Practitioner Primary Care; Emergency Provider Emergency Medicine
DX: E11.65 Type 2 diabetes mellitus with hyperglycemia (principal); R10.9 Unspecified abdominal pain; Z79.899 Other long term (current) drug therapy; Z79.4 Long term (current) use of insulin
CPT/HCPCS: 36415; 74176; 80053; 85025; 85610; 85730; 99283; 99284

== ENCOUNTER → 2020-09-16 09:50 | Outpatient (BNVA) | payer MEDICAID, SELFPAY | PROVIDERS: Visit Provider Nurse Practitioner Gerontology ==

== ENCOUNTER 2020-10-16 06:37 | Emergency (ER) | payer MEDICAID, SELFPAY ==
[2020-10-16 06:44] VITALS: BP 140/83; PULSE 100; RESP 16; TEMP 36.7; O2SAT 99; BMI 32.2
--- NOTE | 2020-10-16 06:58 | ED_ITS ---
HPI - General Adult General Chief complaint: General Medical Stated complaint: fever/sore throat Time Seen by Provider: 10/16/20 06:53 Source: patient and hourly sign language interpreter Mode of arrival: ambulatory Limitations: no limitations History of Present Illness HPI narrative: runny nose headaches body aches and sore throat since last night daughter just tested positive for covid yesterday complaint: sore throat Onset (ago): day(s) (1) Location: mouth Severity: mild Quality: aching Pain Consistency: constant Relieving factors: none Exacerbating factors: none Associated symptoms: cough and other (body aches) Treatments prior to arrival: none Related Data Home Medications Medication Instructions Recorded Confirmed acetaminophen 500 mg capsule 500 mg PO Q6H PRN 05/22/20 09/16/20 atorvastatin 80 mg tablet 80 mg PO DAILY 05/22/20 09/16/20 canagliflozin 100 mg tablet 100 mg PO DAILY 05/22/20 09/16/20 duloxetine 60 mg capsule,delayed 60 mg PO DAILY 05/22/20 09/16/20 release fluticasone propionate 50 1 spray INTRANASAL DAILY 05/22/20 09/16/20 mcg/actuation nasal spray,suspension ibuprofen 600 mg tablet 600 mg PO Q8H PRN 05/22/20 09/16/20 levetiracetam 1,000 mg tablet 1,500 mg PO Q12H 05/22/20 09/16/20 lisinopril 2.5 mg tablet 2.5 mg PO DAILY 05/22/20 09/16/20 meclizine 25 mg tablet 25 mg PO DAILY PRN 05/22/20 09/16/20 sucralfate 100 mg/mL oral 10 ml PO BID 05/22/20 09/16/20 suspension Previous Rx's Medication Instructions Recorded ondansetron HCl [Zofran] 4 mg PO Q8H PRN #14 tab 04/18/20 omeprazole 40 mg capsule,delayed 40 mg PO BID 30 Days #60 cap 05/22/20 release cephalexin [Keflex] 500 mg PO TID 7 Days #21 cap 06/17/20 doxycycline monohydrate 100 mg PO BID 10 Days #20 cap 06/17/20 cyclobenzaprine 5 mg PO TID PRN #14 tab 07/21/20 lidocaine 1 patch TOPICAL Q24H PRN 10 Days 07/21/20 ea naproxen 500 mg PO BID PRN #14 tab 07/21/20 insulin lispro 100 unit/mL See Rx Instructions SUBCUT 10/01/20 subcutaneous pen .COMPLEX #15 ml insulin glargine 100 unit/mL (3 32 unit SUBCUT BEDTIME 30 Days #15 10/02/20 mL) subcutaneous pen ml sennosides 8.6 mg-docusate sodium 2 tab-cap PO BID 30 Days #120 tab 10/06/20 50 mg tablet Allergies Allergy/AdvReac Type Severity Reaction Status Date / Time No Known Allergies Allergy Mild N/A Verified 09/16/20 11:27 Review of Systems Review of Systems: Constitutional : no Fever, positive Chills, positive fatigue, positive Malaise ENT/Mouth : positive sore throat, positive runny nose Eyes: No Discharge Cardiovascular : No Chest Pain, No SOB Respiratory : No Cough, No Sputum Gastrointestinal : No Nausea, No Vomiting, No Diarrhea Genitourinary : No Dysuria, No Urinary Frequency Musculoskeletal : positive Myalgia Skin : No rash Neuro : No Headache PMFSH Past Medical History Attestation statement: The following information was validated with the patient. Medical History Asthma Depression Diabetes Diabetic retinopathy Epilepsy Essential hypertension Hyperlipidemia Hyperlipidemia LDL goal <100 Hypertension Type 2 diabetes mellitus with hyperglycemia, with long-term current use of insulin Surgical History H/O section H/O esophagogastroduodenoscopy (03/14/18) History of ankle surgery Hx of colonoscopy (~06/2018) Family History Family History (Updated 09/16/20 @ 11:29 by SHAVONNE Boles) Mother Diabetes Father Diabetes Social History Social History Household Members: Spouse and Children Alcohol intake: never Smoking Status: Never smoker Physical Exam Vital Signs: Vital Signs: Last Vital Signs Temp 98.0 F 10/16/20 06:44 Pulse 100 10/16/20 06:44 Resp 16 10/16/20 06:44 BP 140/83 H 10/16/20 06:44 Pulse Ox 99 10/16/20 06:44 Body Mass Index 32.2 Appearance: Alert. Oriented X3. No acute distress. Eyes: Pupils equal, round and reactive to light. ENT: Pharynx normal. no patches no swelling Neck: Normal inspection. Neck supple. CVS: Normal heart rate and rhythm. Pulses normal. Respiratory: No respiratory distress. Breath sounds normal. Abdomen: Soft and nontender. Skin: Skin warm and dry. Normal skin color. Normal skin turgor. Extremities: No lower extremity edema. No calf ttp Neuro: Oriented X 3. No motor deficit. No sensory deficit. Course Course Course Narrative: called with negative results 825AM Medical Decision Making [facility] Narrative Medical decision making narrative: 55 yo female not toxic, well hydrated clear l ungs, 99% on RA no CP/SOB c/o body aches, sore throat, runny nose, headaches - daughter has COVID, will test and send home with precautions, patient's throat not consistent with strep or bacterial infection Lab Data Labs: Lab Results 10/16/20 Range/Units 07:29 Coronavirus (PCR) NEGATIVE (Negative) Influenza Type A (PCR) NEGATIVE (Negative) Influenza Type B (PCR) NEGATIVE (Negative) RSV RNA Qual (PCR) NEGATIVE (Negative) Discharge Plan Discharge Clinical Impression: Acute viral syndrome Pharyngitis Qualifiers: Pharyngitis/tonsillitis etiology: unspecified etiology Qualified Code(s): J02.9 - Acute pharyngitis, unspecified Patient Disposition: Home, Self-Care Instructions: COVID-19 (Coronavirus Disease 2019) (ED) Additional Instructions: return to ED for any worsening symptoms or concerns you were tested for COVID we will call you with results today, wear a mask, socially distance Prescriptions: No Action insulin lispro [Humalog KwikPen Insulin] 100 unit/mL insulin pen See Rx Instructions subcut .COMPLEX Qty: 15 RF: 0 insulin glargine [Lantus Solostar U-100 Insulin] 100 unit/mL (3 mL) insulin pen 32 unit subcut BEDTIME 30 Days Qty: 15 RF: 1 sennosides-docusate sodium [Senna with Docusate Sodium] 8.6-50 mg tablet 2 tab-cap PO BID 30 Days Qty: 120 RF: 3 doxycycline monohydrate 100 mg capsule 100 mg PO BID 10 Days Qty: 20 RF: 0 cephalexin [Keflex] 500 mg capsule 500 mg PO TID 7 Days Qty: 21 RF: 0 lidocaine 4 % adhesive patch,medicated 1 patch topical Q24H PRN (Reason: pain) 10 Days RF: 0 cyclobenzaprine 5 mg tablet 5 mg PO TID PRN (Reason: muscle spasm) Qty: 14 RF: 0 naproxen 500 mg tablet 500 mg PO BID PRN (Reason: pain) Qty: 14 RF: 0 ondansetron HCl [Zofran] 4 mg tablet 4 mg PO Q8H PRN (Reason: nausea and vomiting) Qty: 14 RF: 0 atorvastatin 80 mg tablet 80 mg PO DAILY RF: 0 duloxetine 60 mg capsule,delayed release(DR/EC) 60 mg PO DAILY RF: 0 sucralfate [Carafate] 100 mg/mL suspension 10 ml PO BID RF: 0 ibuprofen 600 mg tablet 600 mg PO Q8H PRNRF: 0 acetaminophen [Mapap (acetaminophen)] 500 mg capsule 500 mg PO Q6H PRNRF: 0 levetiracetam 1,000 mg tablet 1,500 mg PO Q12H RF: 0 lisinopril 2.5 mg tablet 2.5 mg PO DAILY RF: 0 fluticasone propionate [Allergy Relief (fluticasone)] 50 mcg/actuation spray,suspension 1 spray intranasal DAILY RF: 0 Invokana 100 mg tablet 100 mg PO DAILY RF: 0 meclizine 25 mg tablet 25 mg PO DAILY PRN (Reason: dizziness) RF: 0 omeprazole 40 mg capsule,delayed release(DR/EC) 40 mg PO BID 30 Days Qty: 60 RF: 4 Interventions: ED Discharge Assessment Last Done: 10/16/20 07:32 Discharge Date/Time: 10/16/20 07:32 Print Language: Ecuadorean
[2020-10-16 08:21] LABS: Influenza A PCR NEGATIVE (Negative); Influenza B PCR NEGATIVE (Negative); Resp Syncy Virus RNA Qual PCR NEGATIVE (Negative); SARS COV2 PCR INHOUSE NEGATIVE (Negative)
== END 2020-10-16 07:32 | disposition home or self-care (01) ==
PROVIDERS: Emergency Provider Emergency Medicine; PCP Internal Medicine
DX: B34.9 Viral infection, unspecified (principal); J02.9 Acute pharyngitis, unspecified; Z20.822 Contact with and (suspected) exposure to COVID-19; R51.9 Headache, unspecified; E11.9 Type 2 diabetes mellitus without complications; I10 Essential (primary) hypertension; J45.909 Unspecified asthma, uncomplicated; Z79.4 Long term (current) use of insulin
CPT/HCPCS: 0241U; 36415; 99283

== ENCOUNTER 2020-10-29 15:13 | Emergency (ER) | payer MEDICAID, SELFPAY ==
--- NOTE | ~2020-10-29 | CT_ITS ---
EXAMINATION: CT ABDOMEN AND PELVIS WITHOUT CONTRAST CLINICAL INFORMATION: lower abdominal pain, hematuria. COMPARISON: 08/29/2020. TECHNIQUE: Multidetector volumetric imaging was performed from the superior aspect of the liver through the pubic symphysis without contrast per renal stone protocol. Sagittal and coronal reformatted images were obtained on the technologist workstation. This CT examination was performed using dose optimization techniques as appropriate, variously including the following: *Automated exposure control *Adjustment of mA and/or kV according to patient size (this includes techniques or standardized protocols for targeted exams where dose is matched to indication/reason for exam; i.e. extremities or head) *Use of iterative reconstruction technique DLP: 669 mGy-cm. FINDINGS: LUNG BASES: Minimal dependent atelectasis. Small hiatal hernia. LIVER, GALLBLADDER, BILIARY TREE: The non-contrast liver is normal in size, shape, and attenuation. No focal hepatic lesion or biliary ductal dilatation is present. The gallbladder is unremarkable with no evidence of radiopaque gallstones, gallbladder wall thickening, or obvious pericholecystic inflammatory changes. PANCREAS: Unremarkable. SPLEEN: Unremarkable. ADRENAL GLANDS: Unremarkable. KIDNEYS AND URETERS: The kidneys are normal in size, shape, and attenuation. No hydronephrosis, hydroureter, or calculi seen. No perinephric stranding. BLADDER: Unremarkable. GASTROINTESTINAL TRACT: Scattered colonic diverticulosis but no evidence for diverticulitis. No colonic wall thickening or pericolonic inflammatory changes. Normal-appearing appendix in the right lower quadrant. Visualized small bowel unremarkable. ABDOMINAL WALL: Tiny air bubbles in the anterior abdominal wall likely from injections LYMPHOVASCULAR STRUCTURES: No lymphadenopathy. The aorta is unremarkable.. PELVIC VISCERA: Unremarkable. OSSEUS STRUCTURES: Unremarkable. CT/CT abdomen pelvis wo con IMPRESSION: No acute intra-abdominal process seen. Overall the appearance is similar to the 08/29/2020 exam.
--- NOTE | 2020-10-29 15:47 | PC.NURSE ---
awaiting certified court interpreter services to triage patient
[2020-10-29 15:56] VITALS: BP 177/81; PULSE 89; RESP 18; TEMP 36.7; O2SAT 97; BMI 28.2
[2020-10-29 16:24] LABS: MANUAL DIFF FLAG NO
[2020-10-29 16:26] LABS: Basophils Percent Auto 0.5 % (0-2); Eosinophils Absolute Auto 0.2 X10*3/uL (0.0-0.4); Eosinophils Percent Auto 2.6 % (0-4); Hemoglobin 12.8 g/dl (12.0-16.0); Imm Gran Abs Auto 0.03 X10*3/uL (0.00-0.03); Imm Gran Pct Auto 0.4 % (0.0-0.4); Lymphocytes Absolute Auto 1.8 X10*3/uL (1.2-4.9); Mean Corpuscular HGB Conc 32.8 g/dl (31.0-35.0); Mean Corpuscular Hemoglobin 29.5 pg (27.0-33.0); Mean Corpuscular Volume 89.9 fL (80-98); Mean Platelet Volume 9.8 fL (9.4-12.3); Monocytes Absolute Auto 0.4 X10*3/uL (0.1-1.2); Monocytes Percent Auto 4.8 % (2-11); Neutrophils Absolute Auto 5.2 X10*3/uL (2.0-8.3); Neutrophils Percent Auto 67.7 % (45-73); Platelet Count 260 X10*3/uL (160-400); Red Blood Count 4.34 X10*6/uL (4.20-5.50); Red Cell Distribution Width 12.3 % (11.0-16.0); White Blood Count 7.7 X10*3/uL (4.8-10.8)
[2020-10-29 16:28] LABS: Glucose Urine UA >=1000 MG/DL (NEG); Leukocyte Esterase Urine NEG (NEG); Nitrite Urine NEG (NEG); PH 6.5 (5.0-8.0); Urine Blood NEG (NEG); Urine Ketones NEG (NEG); Urine Protein NEG (NEG-TRACE)
[2020-10-29 16:30] LABS: Appearance Urine CLEAR; Color Urine YELLOW
[2020-10-29 16:44] LABS: Bacteria Urine TRACE /LPF; RBC Urine 0-2 /HPF (0); Squamous Epithelial Cell Urine TRACE /LPF; WBC Urine 0 /HPF (0-4)
[2020-10-29 17:03] LABS: Alanine Aminotransferase 10 U/L (0-31); Albumin Level 3.7 g/dL (3.5-5.0); Alkaline Phosphatase 128 U/L (39-117); Anion Gap 13 (12-20); Aspartate Amino Transferase 9 U/L (5-31); Bilirubin Total 0.7 mg/dL (0.0-1.0); Blood Urea Nitrogen 15 mg/dL (9-16); Calcium 8.8 mg/dL (8.4-10.2); Carbon Dioxide 27 mmol/L (22-29); Chloride 100 mmol/L (96-108); Creatinine Clr Calc Pharmacy 79.5; Estimated Glomerular Filt Rate > 60; Glucose Random 374 mg/dL (60-115); Potassium 4.1 mmol/L (3.3-5.1); Sodium 136 mmol/L (135-145); Total Protein 6.9 g/dL (6.5-8.0)
--- NOTE | 2020-10-29 20:19 | ED_ITS ---
HPI - Abdominal Pain General Chief Complaint: Abdominal Pain Stated Complaint: Flank pain/blood in urine Time Seen by Provider: 10/29/20 19:46 Source: patient Mode of arrival: ambulatory Limitations: language barrier History of Present Illness HPI narrative: 55 y/o female with history of DM on insulin, hx noncompliance, asthma, HTN, HLD, seizures, depression, constipation, GERD who presents to the ED with reports of lower abdominal pain and slight blood in her urine since yesterday. She states the pain is mostly on the left side of her abdomen and worse with movement and palpation. She denies dysuria but is reporting urinary frequency and light pink urine. No vaginal bleeding or discharge. No fever or chills, N/V/D. She was seen here for similar pain back in August, had normal CT scan and workup, told her abd/flank pain was likely muscular. MD elicited complaint: abdominal pain and other (hematuria) Onset (ago): day(s) (1) Location: suprapubic Severity: moderate Quality: cramping and stabbing Radiation: none Migration to: no migration Related Data Home Medications Medication Instructions Recorded Confirmed acetaminophen 500 mg capsule 500 mg PO Q6H PRN 05/22/20 09/16/20 atorvastatin 80 mg tablet 80 mg PO DAILY 05/22/20 09/16/20 canagliflozin 100 mg tablet 100 mg PO DAILY 05/22/20 09/16/20 duloxetine 60 mg capsule,delayed 60 mg PO DAILY 05/22/20 09/16/20 release fluticasone propionate 50 1 spray INTRANASAL DAILY 05/22/20 09/16/20 mcg/actuation nasal spray,suspension ibuprofen 600 mg tablet 600 mg PO Q8H PRN 05/22/20 09/16/20 levetiracetam 1,000 mg tablet 1,500 mg PO Q12H 05/22/20 09/16/20 lisinopril 2.5 mg tablet 2.5 mg PO DAILY 05/22/20 09/16/20 meclizine 25 mg tablet 25 mg PO DAILY PRN 05/22/20 09/16/20 sucralfate 100 mg/mL oral 10 ml PO BID 05/22/20 09/16/20 suspension Previous Rx's Medication Instructions Recorded ondansetron HCl [Zofran] 4 mg PO Q8H PRN #14 tab 04/18/20 omeprazole 40 mg capsule,delayed 40 mg PO BID 30 Days #60 cap 05/22/20 release cephalexin [Keflex] 500 mg PO TID 7 Days #21 cap 06/17/20 doxycycline monohydrate 100 mg PO BID 10 Days #20 cap 06/17/20 cyclobenzaprine 5 mg PO TID PRN #14 tab 07/21/20 lidocaine 1 patch TOPICAL Q24H PRN 10 Days 07/21/20 ea naproxen 500 mg PO BID PRN #14 tab 07/21/20 insulin lispro 100 unit/mL See Rx Instructions SUBCUT 10/01/20 subcutaneous pen .COMPLEX #15 ml insulin glargine 100 unit/mL (3 32 unit SUBCUT BEDTIME 30 Days #15 10/02/20 mL) subcutaneous pen ml sennosides 8.6 mg-docusate sodium 2 tab-cap PO BID 30 Days #120 tab 10/06/20 50 mg tablet Allergies Allergy/AdvReac Type Severity Reaction Status Date / Time No Known Allergies Allergy Mild N/A Verified 09/16/20 11:27 Review of Systems Review of Systems Constitutional: No Fever, No Chills Cardiovascular: No Chest Pain, No SOB, No Orthopnea, No Edema Respiratory: No Cough, No Sputum, No Wheezing, No dyspnea Gastrointestinal: No Nausea, No Vomiting, No Diarrhea, + abdominal Pain Genitourinary: No Dysuria, + Urinary Frequency, + Hematuria Musculoskeletal: No joint pain, No Myalgias Skin: No Skin Lesions, + rash Neuro: No Weakness, No Numbness, No Dizziness, No Headache Psych: No Anxiety/Panic, No Depression Heme/Lymph: No Bruising, No Lymphadenopathy Endocrine: No Polyuria, No Polydipsia Physical Exam Vital Signs: Vital Signs: Last Vital Signs Temp 98.1 F 10/29/20 15:56 Pulse 89 10/29/20 15:56 Resp 18 10/29/20 15:56 BP 177/81 H 10/29/20 15:56 Pulse Ox 97 10/29/20 15:56 Body Mass Index 28.2 Appearance: Alert. Oriented X3. No acute distress. Resting comfortably. Eyes: Pupils equal, round and reactive to light. ENT: Pharynx normal. Neck: Normal inspection. Neck supple. CVS: Normal heart rate and rhythm. Pulses normal. Respiratory: No respiratory distress. Breath sounds normal. Abdomen: Obese, Soft with left sided tenderness and left sided CVA tenderness, no rebound or guarding. +BS x4. pelvic exam deferred. Skin: Skin warm and dry. Normal skin color. Normal skin turgor. No rashes. Extremities: No lower extremity edema. Neuro: Oriented X 3. Non-focal Course Course Course Narrative: 55 y/o female presenting with left sided abdominal/flank pain as well as increased urinary freqeuncy and mild intermittent hematuria. She is resting comfortably, vitally stable on arrival. Doubt kidney stones given her exam. CBC is normal. UA shows only glucose, no blood or signs of infection. Chem showing hyperglycemia w/ gluscoe 370's. this is likely causing patient's polyuria. Normal renal function and normal bicarb, no DKA. Will treat with IVF and insulin and resassess. CT scan to assess patient's abdominal pain and te nderness is pending. MDM - Abdominal Pain Lab Data Result diagrams: 10/29/20 16:17 10/29/20 16:18 Labs: Lab Results 10/29/20 10/29/20 10/29/20 Range/Units 16:17 16:17 16:18 WBC 7.7 (4.8-10.8) X10*3/uL RBC 4.34 (4.20-5.50) X10*6/uL Hgb 12.8 (12.0-16.0) g/dl Hct 39.0 (37-47) % MCV 89.9 (80-98) fL MCH 29.5 (27.0-33.0) pg MCHC 32.8 (31.0-35.0) g/dl RDW 12.3 (11.0-16.0) % Plt Count 260 (160-400) X10*3/uL MPV 9.8 (9.4-12.3) fL Immature Gran % (Auto) 0.4 (0.0-0.4) % Neut % (Auto) 67.7 (45-73) % Lymph % (Auto) 24.0 (20-40) % Ashley % (Auto) 4.8 (2-11) % Eos % (Auto) 2.6 (0-4) % Baso % (Auto) 0.5 (0-2) % Lymph # (Auto) 1.8 (1.2-4.9) X10*3/uL Ashley # (Auto) 0.4 (0.1-1.2) X10*3/uL Eos # (Auto) 0.2 (0.0-0.4) X10*3/uL Baso # (Auto) 0.0 (0.0-0.2) X10*3/uL Abs Immat Gran (auto) 0.03 (0.00-0.03) X10*3/uL Absolute Neuts (auto) 5.2 (2.0-8.3) X10*3/uL Absolute Nucleated RBC 0.000 (0.0-0.012) X10*3/uL Nucleated RBC % (auto) 0.0 (0.0-0.2) /100WBC Hold Blue Top SEE NOTE Sodium 136 (135-145) mmol/L Potassium 4.1 (3.3-5.1) mmol/L Chloride 100 (96-108) mmol/L Carbon Dioxide 27 (22-29) mmol/L Anion Gap 13 (12-20) BUN 15 (9-16) mg/dL Creatinine 0.86 (0.5-1.4) mg/dL Estim Creat Clear Calc 79.5 Estimated GFR > 60 Random Glucose 374 H* (60-115) mg/dL Calcium 8.8 (8.4-10.2) mg/dL Total Bilirubin 0.7 (0.0-1.0) mg/dL AST 9 (5-31) U/L ALT 10 (0-31) U/L Alkaline Phosphatase 128 H (39-117) U/L Total Protein 6.9 (6.5-8.0) g/dL Albumin 3.7 (3.5-5.0) g/dL Urine Color Urine Appearance Urine pH (5.0-8.0) Ur Specific [place] (1.005-1.025) Urine Protein (NEG-TRACE) MG/DL Urine Glucose (UA) (NEG) MG/DL Urine Ketones (NEG) MG/DL Urine Blood (NEG) Urine Nitrite (NEG) Ur Leukocyte Esterase (NEG) Urine RBC (0) /HPF Urine WBC (0-4) /HPF Ur Squamous Epith Cells /LPF Urine Bacteria /LPF 10/29/20 Range/Units 16:18 WBC (4.8-10.8) X10*3/uL RBC (4.20-5.50) X10*6/uL Hgb (12.0-16.0) g/dl Hct (37-47) % MCV (80-98) fL MCH (27.0-33.0) pg MCHC (31.0-35.0) g/dl RDW (11.0-16.0) % Plt Count (160-400) X10*3/uL MPV (9.4-12.3) fL Immature Gran % (Auto) (0.0-0.4) % Neut % (Auto) (45-73) % Lymph % (Auto) (20-40) % Ashley % (Auto) (2-11) % Eos % (Auto) (0-4) % Baso % (Auto) (0-2) % Lymph # (Auto) (1.2-4.9) X10*3/uL Ashley # (Auto) (0.1-1.2) X10*3/uL Eos # (Auto) (0.0-0.4) X10*3/uL Baso # (Auto) (0.0-0.2) X10*3/uL Abs Immat Gran (auto) (0.00-0.03) X10*3/uL Absolute Neuts (auto) (2.0-8.3) X10*3/uL Absolute Nucleated RBC (0.0-0.012) X10*3/uL Nucleated RBC % (auto) (0.0-0.2) /100WBC Hold Blue Top Sodium (135-145) mmol/L Potassium (3.3-5.1) mmol/L Chloride (96-108) mmol/L Carbon Dioxide (22-29) mmol/L Anion Gap (12-20) BUN (9-16) mg/dL Creatinine (0.5-1.4) mg/dL Estim Creat Clear Calc Estimated GFR Random Glucose (60-115) mg/dL Calcium (8.4-10.2) mg/dL Total Bilirubin (0.0-1.0) mg/dL AST (5-31) U/L ALT (0-31) U/L Alkaline Phosphatase (39-117) U/L Total Protein (6.5-8.0) g/dL Albumin (3.5-5.0) g/dL Urine Color YELLOW Urine Appearance CLEAR Urine pH 6.5 (5.0-8.0) Ur Specific [place] 1.010 (1.005-1.025) Urine Protein NEG (NEG-TRACE) MG/DL Urine Glucose (UA) >=1000 H (NEG) MG/DL Urine Ketones NEG (NEG) MG/DL Urine Blood NEG (NEG) Urine Nitrite NEG (NEG) Ur Leukocyte Esterase NEG (NEG) Urine RBC 0-2 (0) /HPF Urine WBC 0 (0-4) /HPF Ur Squamous Epith Cells TRACE /LPF Urine Bacteria TRACE /LPF Discharge Plan Discharge Prescriptions: No Action insulin lispro [Humalog KwikPen Insulin] 100 unit/mL insulin pen See Rx Instructions subcut .COMPLEX Qty: 15 RF: 0 insulin glargine [Lantus Solostar U-100 Insulin] 100 unit/mL (3 mL) insulin pen 32 unit subcut BEDTIME 30 Days Qty: 15 RF: 1 sennosides-docusate sodium [Senna with Docusate Sodium] 8.6-50 mg tablet 2 tab-cap PO BID 30 Days Qty: 120 RF: 3 doxycycline monohydrate 100 mg capsule 100 mg PO BID 10 Days Qty: 20 RF: 0 cephalexin [Keflex] 500 mg capsule 500 mg PO TID 7 Days Qty: 21 RF: 0 lidocaine 4 % adhesive patch,medicated 1 patch topical Q24H PRN (Reason: pain) 10 Days RF: 0 cyclobenzaprine 5 mg tablet 5 mg PO TID PRN (Reason: muscle spasm) Qty: 14 RF: 0 naproxen 500 mg tablet 500 mg PO BID PRN (Reason: pain) Qty: 14 RF: 0 ondansetron HCl [Zofran] 4 mg tablet 4 mg PO Q8H PRN (Reason: nausea and vomiting) Qty: 14 RF: 0 atorvastatin 80 mg tablet 80 mg PO DAILY RF: 0 duloxetine 60 mg capsule,delayed release(DR/EC) 60 mg PO DAILY RF: 0 sucralfate [Carafate] 100 mg/mL suspension 10 ml PO BID RF: 0 ibuprofen 600 mg tablet 600 mg PO Q8H PRNRF: 0 acetaminophen [Mapap (acetaminophen)] 500 mg capsule 500 mg PO Q6H PRNRF: 0 levetiracetam 1,000 mg tablet 1,500 mg PO Q12H RF: 0 lisinopril 2.5 mg tablet 2.5 mg PO DAILY RF: 0 fluticasone propionate [Allergy Relief (fluticasone)] 50 mcg/actuation spray,suspension 1 spray intranasal DAILY RF: 0 Invokana 100 mg tablet 100 mg PO DAILY RF: 0 meclizine 25 mg tablet 25 mg PO DAILY PRN (Reason: dizziness) RF: 0 omeprazole 40 mg capsule,delayed release(DR/EC) 40 mg PO BID 30 Days Qty: 60 RF: 4 PMFSH Past Medical History Attestation statement: The following information was validated with the patient. Medical History Asthma Depression Diabetes Diabetic retinopathy Epilepsy Essential hypertension Hyperlipidemia Hyperlipidemia LDL goal <100 Hypertension Type 2 diabetes mellitus with hyperglycemia, with long-term current use of insulin Surgical History H/O section H/O esophagogastroduodenoscopy (03/14/18) History of ankle surgery Hx of colonoscopy (~06/2018) Family History Family History (Updated 09/16/20 @ 11:29 by SHAVONNE Boles) Mother Diabetes Father Diabetes Social History Social History Household Members: Spouse and Children Alcohol intake: never Smoking Status: Never smoker Advance Directives: No Advance Directives Information Provided: Yes
[2020-10-29] MEDS: Insulin Lispro 100 UNIT/ML 3 ML VIAL 10 UNIT SUBCUT (20:46)
[2020-10-29] MEDS: 0.9 % Sodium Chloride 1,000 ML 999 ML IVCONT (20:49)
[2020-10-29 21:51] LABS: Glucose, Whole Blood 259 mg/dL (60-115)
== END 2020-10-29 22:56 | disposition home or self-care (01) ==
PROVIDERS: Emergency Provider Internal Medicine; PCP Internal Medicine
DX: R10.30 Lower abdominal pain, unspecified (principal); E11.65 Type 2 diabetes mellitus with hyperglycemia; I10 Essential (primary) hypertension; E78.5 Hyperlipidemia, unspecified; Z79.4 Long term (current) use of insulin; Z79.899 Other long term (current) drug therapy; Z79.02 Long term (current) use of antithrombotics/antiplatelets
CPT/HCPCS: 36415; 74176; 80053; 81001; 82947; 85025; 96360; 99283; 99284

== ENCOUNTER 2020-11-04 07:21 | Emergency (ER) | payer MEDICAID, SELFPAY ==
[2020-11-04 07:24] VITALS: BP 157/99; PULSE 98; RESP 16; TEMP 36.6; O2SAT 98; BMI 25.7
--- NOTE | 2020-11-04 07:43 | ED.GENADULT ---
HPI - General Adult General Chief complaint: General Medical Stated complaint: hip pain Time Seen by Provider: 11/04/20 07:42 Source: patient, old records reviewed and science intern Mode of arrival: ambulatory Limitations: no limitations History of Present Illness HPI narrative: 55 yo female with DM, HTN, HPL, chronic constipation, comes in with left lower back pain x 1 week taking motrin without relief, just had CT scan negative for renal colic, also c/o L ear pain MD complaint: back pain, ear pain Onset (ago): week(s) (1) Location: back Radiation: non-radiation Severity: moderate Quality: aching and crushing Pain Consistency: constant Relieving factors: none Exacerbating factors: movement Associated symptoms: other (L ear pain) Treatments prior to arrival: NSAID Related Data Home Medications Medication Instructions Recorded Confirmed acetaminophen 500 mg capsule 500 mg PO Q6H PRN 05/22/20 09/16/20 atorvastatin 80 mg tablet 80 mg PO DAILY 05/22/20 09/16/20 canagliflozin 100 mg tablet 100 mg PO DAILY 05/22/20 09/16/20 duloxetine 60 mg capsule,delayed 60 mg PO DAILY 05/22/20 09/16/20 release fluticasone propionate 50 1 spray INTRANASAL DAILY 05/22/20 09/16/20 mcg/actuation nasal spray,suspension ibuprofen 600 mg tablet 600 mg PO Q8H PRN 05/22/20 09/16/20 levetiracetam 1,000 mg tablet 1,500 mg PO Q12H 05/22/20 09/16/20 lisinopril 2.5 mg tablet 2.5 mg PO DAILY 05/22/20 09/16/20 meclizine 25 mg tablet 25 mg PO DAILY PRN 05/22/20 09/16/20 sucralfate 100 mg/mL oral 10 ml PO BID 05/22/20 09/16/20 suspension Previous Rx's Medication Instructions Recorded ondansetron HCl [Zofran] 4 mg PO Q8H PRN #14 tab 04/18/20 omeprazole 40 mg capsule,delayed 40 mg PO BID 30 Days #60 cap 05/22/20 release cephalexin [Keflex] 500 mg PO TID 7 Days #21 cap 06/17/20 doxycycline monohydrate 100 mg PO BID 10 Days #20 cap 06/17/20 cyclobenzaprine 5 mg PO TID PRN #14 tab 07/21/20 lidocaine 1 patch TOPICAL Q24H PRN 10 Days 07/21/20 ea naproxen 500 mg PO BID PRN #14 tab 07/21/20 insulin lispro 100 unit/mL See Rx Instructions SUBCUT 10/01/20 subcutaneous pen .COMPLEX #15 ml insulin glargine 100 unit/mL (3 32 unit SUBCUT BEDTIME 30 Days #15 10/02/20 mL) subcutaneous pen ml sennosides 8.6 mg-docusate sodium 2 tab-cap PO BID 30 Days #120 tab 10/06/20 50 mg tablet cyclobenzaprine 10 mg PO TID PRN #14 tab 11/04/20 lidocaine 1 patch TOPICAL DAILY PRN #10 ea 11/04/20 Allergies Allergy/AdvReac Type Severity Reaction Status Date / Time No Known Allergies Allergy Mild N/A Verified 09/16/20 11:27 Review of Systems Review of Systems: Constitutional : No Weight loss, No Fever, No Chills, ENT/Mouth : No Hearing loss, pos Ear Pain, No Nasal Congestion, No Sinus Pain, No Hoarseness, No sore throat, No Rhinorrhea, No Swallowing Difficulty Cardiovascular : No Chest Pain, No SOB Respiratory : No Cough, No Dyspnea Gastrointestinal : No Nausea, No Vomiting, No Diarrhea, No abdominal Pain, No Hematochezia, No Melena Genitourinary : No Dysuria, No Urinary Frequency, No Hematuria, No Urinary Incontinence, Musculoskeletal : positive back pain Skin : No Skin Lesions, No rash Neuro : No Weakness, No Numbness, No Paresthesias, no loss of bowel or bladder incontinence, no saddle anesthesia [facility] Past Medical History Attestation statement: The following information was validated with the patient. Medical History Asthma Depression Diabetes Diabetic retinopathy Epilepsy Essential hypertension Hyperlipidemia Hyperlipidemia LDL goal <100 Hypertension Type 2 diabetes mellitus with hyperglycemia, with long-term current use of insulin Surgical History H/O section H/O esophagogastroduodenoscopy (03/14/18) History of ankle surgery Hx of colonoscopy (~06/2018) Family History Family History (Updated 03/09/21 @ 11:29 by SHAVONNE Boles) Mother Diabetes Father Diabetes Social History Social History Household Members: Spouse and Children Alcohol intake: never Smoking Status: Never smoker Advance Directives: No Advance Directives Information Provided: No Physical Exam Vital Signs: Vital Signs: Last Vital Signs Temp 97.8 F 11/04/20 07:24 Pulse 98 11/04/20 07:24 Resp 16 11/04/20 07:24 BP 157/99 H 11/04/20 07:24 Pulse Ox 98 11/04/20 07:24 Body Mass Index 25.7 Appearance: Alert. Oriented X3. No acute distress. getting up and out of the bed without any issue appears in no pain Eyes: Pupils equal, round and reactive to light. ENT: Pharynx normal. L ear normal no erythema/swelling/drainage, no lymphadenopathy Neck: Normal inspection. Neck supple. CVS: Normal heart rate and rhythm. Pulses normal. Respiratory: No respiratory distress. Breath sounds normal. Abdomen: Soft and nontender. Back: left lower lumbar ttp no CVA ttp Skin: Skin warm and dry. Normal skin color. Normal skin turgor. Extremities: No lower extremity edema. No calf ttp Neuro: Oriented X 3. No motor deficit. No sensory deficit. Medical Decision Making MDM Narrative Medical decision making narrative: 55 yo female with low back pain just had negative CT scan - NV intact, no b/b incontinence, no saddle anesthesia, no AC therapy, - start on flexeril and lidocaine refer to PCP, L earache without signs of infection - discussed observation and follow up with PCP Discharge Plan Discharge Clinical Impression: Lumbar strain Qualifiers: Encounter type: subsequent encounter Qualified Code(s): S39.012D - Strain of muscle, fascia and tendon of lower back, subsequent encounter Acute otalgia Qualifiers: Laterality: left Qualified Code(s): H92.02 - Otalgia, left ear Patient Disposition: Home, Self-Care Instructions: Low Back Strain (ED), Earache (ED) Additional Instructions: return to ED for any worsening symptoms or concerns Prescriptions: New cyclobenzaprine 10 mg tablet 10 mg PO TID PRN (Reason: muscle spasm) Qty: 14 RF: 0 lidocaine 4 % adhesive patch,medicated 1 patch topical DAILY PRN (Reason: pain) Qty: 10 RF: 0 No Action insulin lispro [Humalog KwikPen Insulin] 100 unit/mL insulin pen See Rx Instructions subcut .COMPLEX Qty: 15 RF: 0 insulin glargine [Lantus Solostar U-100 Insulin] 100 unit/mL (3 mL) insulin pen 32 unit subcut BEDTIME 30 Days Qty: 15 RF: 1 sennosides-docusate sodium [Senna with Docusate Sodium] 8.6-50 mg tablet 2 tab-cap PO BID 30 Days Qty: 120 RF: 3 doxycycline monohydrate 100 mg capsule 100 mg PO BID 10 Days Qty: 20 RF: 0 cephalexin [Keflex] 500 mg capsule 500 mg PO TID 7 Days Qty: 21 RF: 0 lidocaine 4 % adhesive patch,medicated 1 patch topical Q24H PRN (Reason: pain) 10 Days RF: 0 cyclobenzaprine 5 mg tablet 5 mg PO TID PRN (Reason: muscle spasm) Qty: 14 RF: 0 naproxen 500 mg tablet 500 mg PO BID PRN (Reason: pain) Qty: 14 RF: 0 ondansetron HCl [Zofran] 4 mg tablet 4 mg PO Q8H PRN (Reason: nausea and vomiting) Qty: 14 RF: 0 atorvastatin 80 mg tablet 80 mg PO DAILY RF: 0 duloxetine 60 mg capsule,delayed release(DR/EC) 60 mg PO DAILY RF: 0 sucralfate [Carafate] 100 mg/mL suspension 10 ml PO BID RF: 0 ibuprofen 600 mg tablet 600 mg PO Q8H PRNRF: 0 acetaminophen [Mapap (acetaminophen)] 500 mg capsule 500 mg PO Q6H PRNRF: 0 levetiracetam 1,000 mg tablet 1,500 mg PO Q12H RF: 0 lisinopril 2.5 mg tablet 2.5 mg PO DAILY RF: 0 fluticasone propionate [Allergy Relief (fluticasone)] 50 mcg/actuation spray,suspension 1 spray intranasal DAILY RF: 0 Invokana 100 mg tablet 100 mg PO DAILY RF: 0 meclizine 25 mg tablet 25 mg PO DAILY PRN (Reason: dizziness) RF: 0 omeprazole 40 mg capsule,delayed release(DR/EC) 40 mg PO BID 30 Days Qty: 60 RF: 4 Referrals: Rachael Brown MD [Primary Care Provider] - 2 days Interventions: ED Discharge Assessment Last Done: 11/04/20 08:29 Discharge Date/Time: 11/04/20 08:30 Print Language: Sinhala
[2020-11-04] MEDS: Lidocaine 4 % Patch ADH..PATCH 1 PATCH TRANSDERMA (08:10)
[2020-11-04] MEDS: Cyclobenzaprine HCl 10 MG TABLET PO (08:10)
--- NOTE | 2020-11-04 08:28 | PC.NURSE ---
pt has arrived and is requesting to speak with a supervisor safety deposit . pancho rn and interpretter with this rn at bedside to go over discharge instructions. pt and family member educated about recent workup and results.
== END 2020-11-04 08:30 | disposition home or self-care (01) ==
PROVIDERS: Emergency Provider Emergency Medicine; PCP Internal Medicine
DX: S39.012A Strain of muscle, fascia and tendon of lower back, initial encounter (principal); X58.XXXA Exposure to other specified factors, initial encounter; H92.02 Otalgia, left ear; E11.9 Type 2 diabetes mellitus without complications; I10 Essential (primary) hypertension; E78.5 Hyperlipidemia, unspecified; Z79.02 Long term (current) use of antithrombotics/antiplatelets; Z79.899 Other long term (current) drug therapy; Y93.9 Activity, unspecified; Y92.9 Unspecified place or not applicable; Y99.9 Unspecified external cause status
CPT/HCPCS: 99283

== ENCOUNTER → 2020-11-17 07:43 | Outpatient (BNVA) | payer MEDICAID, SELFPAY | PROVIDERS: PCP Internal Medicine; Visit Provider Nurse Practitioner Gerontology ==

== ENCOUNTER 2020-12-09 08:13 | Emergency (ER) | payer MEDICAID, SELFPAY ==
[2020-12-09 09:00] VITALS: BP 129/78; PULSE 93; RESP 18; TEMP 36.7; O2SAT 97; BMI 29.2
--- NOTE | 2020-12-09 10:06 | ED_ITS ---
HPI - Female Genitourinary General Chief complaint: Urogenital-Female Stated complaint: vag pain Time Seen by Provider: 12/09/20 10:05 History of Present Illness HPI Narrative: Patient complains of vaginal redness and itching for several days similar to prior yeast infections and Diflucan has always worked and she is here requesting a Diflucan tablet She denies any vaginal bleeding any pelvic or abdominal pain no dysuria no fever no chills, no abdominal or pelvic pain, no dysuria Related Data Home Medications Medication Instructions Recorded Confirmed acetaminophen 500 mg capsule 500 mg PO Q6H PRN 05/22/20 11/17/20 atorvastatin 80 mg tablet 80 mg PO DAILY 05/22/20 11/17/20 canagliflozin 100 mg tablet 100 mg PO DAILY 05/22/20 11/17/20 duloxetine 60 mg capsule,delayed 60 mg PO DAILY 05/22/20 11/17/20 release fluticasone propionate 50 1 spray INTRANASAL DAILY 05/22/20 11/17/20 mcg/actuation nasal spray,suspension ibuprofen 600 mg tablet 600 mg PO Q8H PRN 05/22/20 11/17/20 levetiracetam 1,000 mg tablet 1,500 mg PO Q12H 05/22/20 11/17/20 lisinopril 2.5 mg tablet 2.5 mg PO DAILY 05/22/20 11/17/20 meclizine 25 mg tablet 25 mg PO DAILY PRN 05/22/20 11/17/20 sucralfate 100 mg/mL oral 10 ml PO BID 05/22/20 11/17/20 suspension Previous Rx's Medication Instructions Recorded ondansetron HCl [Zofran] 4 mg PO Q8H PRN #14 tab 04/18/20 omeprazole 40 mg capsule,delayed 40 mg PO BID 30 Days #60 cap 05/22/20 release cephalexin [Keflex] 500 mg PO TID 7 Days #21 cap 06/17/20 doxycycline monohydrate 100 mg PO BID 10 Days #20 cap 06/17/20 cyclobenzaprine 5 mg PO TID PRN #14 tab 07/21/20 lidocaine 1 patch TOPICAL Q24H PRN 10 Days 07/21/20 ea naproxen 500 mg PO BID PRN #14 tab 07/21/20 insulin glargine 100 unit/mL (3 32 unit SUBCUT BEDTIME 30 Days #15 10/02/20 mL) subcutaneous pen ml sennosides 8.6 mg-docusate sodium 2 tab-cap PO BID 30 Days #120 tab 10/06/20 50 mg tablet cyclobenzaprine 10 mg PO TID PRN #14 tab 11/04/20 lidocaine 1 patch TOPICAL DAILY PRN #10 ea 11/04/20 clotrimazole 1 appl TOPICAL BID PRN #15 g 12/09/20 clotrimazole [Clotrimazole 3 Day] 1 appful VAGINAL BEDTIME 3 Days 12/09/20 #21 g insulin lispro 100 unit/mL See Rx Instructions SUBCUT 12/09/20 subcutaneous pen .COMPLEX #15 ml Allergies Allergy/AdvReac Type Severity Reaction Status Date / Time No Known Allergies Allergy Mild N/A Verified 12/09/20 09:00 Review of Systems Review of Systems: Positive for vaginal itching redness and discharge Negatives are no fever no chills no dizziness no weakness no chest pain no abdominal pain no pelvic pain no back pain no vaginal bleeding no leg swelling no rash Yes all other systems are reviewed and are negative [facility] Past Medical History Source: nursing notes reviewed Medical History Asthma Depression Diabetes Diabetic retinopathy Epilepsy Essential hypertension Hyperlipidemia Hyperlipidemia LDL goal <100 Hypertension Type 2 diabetes mellitus with hyperglycemia, with long-term current use of insulin Surgical History H/O section H/O esophagogastroduodenoscopy (03/14/18) History of ankle surgery Hx of colonoscopy (~06/2018) Family History Family History (Updated 11/17/20 @ 07:45 by CHRISTIAN Webb) Mother Diabetes Father Diabetes Social History Social History (Updated 11/17/20 @ 07:45 by CHRISTIAN Webb) Household Members: Spouse and Children Alcohol intake: never Physical Exam Vital Signs: Vital Signs: Last Vital Signs Temp 98.1 F 12/09/20 09:00 Pulse 93 12/09/20 09:00 Resp 18 12/09/20 09:00 BP 129/78 12/09/20 09:00 Pulse Ox 97 12/09/20 09:00 Body Mass Index 29.2 General appearance no acute distress Neck is supple Respiratory no distress Abdomen soft and nontender Pelvic exam shows pinkish red labia with a whitish discharge, no odor no lesions Speculum exam showed a normal cervix, not friable Bimanual exam I could not palpate any mass there was no tenderness no cervical motion tenderness Skin no rash Extremities full range of motion x4, no edema Neuro no focal motor or sensory deficit Course Course Course Narrative: Patient is treated for likely yeast infection similar to her previous and 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 [facility] - Female Genitourinary Lab Data Labs: Lab Results 12/09/20 Range/Units 10:14 [place] species DNA Negative (Negative) Gardnerella DNA Probe Positive A (Negative) Trichomonas DNA Probe Negative (Negative) Discharge Plan Discharge Clinical Impression: Candidiasis, vagina Patient Disposition: Home, Self-Care Additional Instructions: We gave a 1 Diflucan tablet here in the emergency room You can use 3 day cream in the vagina as well as cream to apply to external skin as needed Return any concerns Follow with primary doctor and tool grinder operator surface As you said her sugars are often over 200 you may need medication adjustments so follow closely with primary doctor Prescriptions: New Clotrimazole 3 Day 2 % cream 1 appful vaginal BEDTIME 3 Days Qty: 21 RF: 0 clotrimazole 1 % cream 1 appl topical BID PRN (Reason: Apply to vaginal rash, external use) Qty: 15 RF: 0 No Action insulin glargine [Lantus Solostar U-100 Insulin] 100 unit/mL (3 mL) insulin pen 32 unit subcut BEDTIME 30 Days Qty: 15 RF: 1 sennosides-docusate sodium [Senna with Docusate Sodium] 8.6-50 mg tablet 2 tab-cap PO BID 30 Days Qty: 120 RF: 3 insulin lispro [Humalog KwikPen Insulin] 100 unit/mL insulin pen See Rx Instructions subcut .COMPLEX Qty: 15 RF: 0 doxycycline monohydrate 100 mg capsule 100 mg PO BID 10 Days Qty: 20 RF: 0 cephalexin [Keflex] 500 mg capsule 500 mg PO TID 7 Days Qty: 21 RF: 0 lidocaine 4 % adhesive patch,medicated 1 patch topical Q24H PRN (Reason: pain) 10 Days RF: 0 cyclobenzaprine 5 mg tablet 5 mg PO TID PRN (Reason: muscle spasm) Qty: 14 RF: 0 naproxen 500 mg tablet 500 mg PO BID PRN (Reason: pain) Qty: 14 RF: 0 ondansetron HCl [Zofran] 4 mg tablet 4 mg PO Q8H PRN (Reason: nausea and vomiting) Qty: 14 RF: 0 cyclobenzaprine 10 mg tablet 10 mg PO TID PRN (Reason: muscle spasm) Qty: 14 RF: 0 lidocaine 4 % adhesive patch,medicated 1 patch topical DAILY PRN (Reason: pain) Qty: 10 RF: 0 atorvastatin 80 mg tablet 80 mg PO DAILY RF: 0 duloxetine 60 mg capsule,delayed release(DR/EC) 60 mg PO DAILY RF: 0 sucralfate [Carafate] 100 mg/mL suspension 10 ml PO BID RF: 0 ibuprofen 600 mg tablet 600 mg PO Q8H PRNRF: 0 acetaminophen [Mapap (acetaminophen)] 500 mg capsule 500 mg PO Q6H PRNRF: 0 levetiracetam 1,000 mg tablet 1,500 mg PO Q12H RF: 0 lisinopril 2.5 mg tablet 2.5 mg PO DAILY RF: 0 fluticasone propionate [Allergy Relief (fluticasone)] 50 mcg/actuation spray,suspension 1 spray intranasal DAILY RF: 0 Invokana 100 mg tablet 100 mg PO DAILY RF: 0 meclizine 25 mg tablet 25 mg PO DAILY PRN (Reason: dizziness) RF: 0 omeprazole 40 mg capsule,delayed release(DR/EC) 40 mg PO BID 30 Days Qty: 60 RF: 4 Referrals: Edgar Urbina MD [Physician] - 2 days Interventions: ED Discharge Assessment Last Done: 12/09/20 10:18 Discharge Date/Time: 12/09/20 10:19
[2020-12-09] MEDS: Fluconazole 150 MG TABLET PO (10:17)
[2020-12-10 08:41] LABS: BV Int Neg Control Negative (Negative); BV Int Pos Control Positive (Positive)
== END 2020-12-09 10:19 | disposition home or self-care (01) ==
PROVIDERS: Physician Assistant Medical; Emergency Provider Emergency Medicine; PCP Internal Medicine
DX: R10.2 Pelvic and perineal pain (principal); B37.3 Candidiasis of vulva and vagina; Z79.899 Other long term (current) drug therapy
CPT/HCPCS: 87480; 87510; 87660; 99283

== ENCOUNTER → 2021-01-05 07:27 | Outpatient (REF) | payer MEDICAID, SELFPAY ==
--- NOTE | ~2021-01-05 | NM_ITS ---
EXAMINATION: RADIONUCLIDE SOLID FOOD GASTRIC EMPTYING 4-HOUR STUDY CLINICAL INFORMATION: Abdominal pain and tight 2 diabetes mellitus. COMPARISON: The previous study dated 02/16/2010 is available for comparison. This was performed using a different technique with imaging obtained only up to 2 hours post ingestion. TECHNIQUE: A standard meal consisting of 4 oz of Egg Beaters brand equivalent tagged with 670 microcuries Tc-99m Sulfur Colloid, 8 oz water and 2 slices of toast with jelly was administered orally to the patient. Images were obtained using a dual head gamma camera in the anterior and posterior projections over of the stomach immediately post ingestion and at hourly intervals up to 4 hours post ingestion. The anterior and posterior counts at each time interval were averaged using the geometric mean and expressed as percentage of the immediate post ingestion counts. FINDINGS: There is good visualization of activity in the stomach immediately post ingestion. As the study progresses, there is good clearance of activity from the stomach and visualization of progressively increasing small bowel activity. By the end of the study, there is almost no retention noted in the stomach. Retention in the stomach at each time interval was: 1 hour 74% (normal 37%-90%) 2 hours 51% (normal 30%-60%) 3 hours 17% 4 hours 6% (normal 0%-10%) Although the prior study dated 02/16/2010 imaged only up to 2 hours, the retention at this time which was 79% previously is significantly less emptying than on the current study which showed 51% retention at 2 hours. NM/NM gastric emptying study IMPRESSION: Normal 4-hour solid food gastric emptying study. Gastric emptying is significantly more rapid than on the prior study from 2009.
[2021-01-05 09:17] LABS: HCG Quantitative < 2 mIU/mL
== END ==
LOC: HO.NUCMED 07:27
PROVIDERS: Radiology Diagnostic Radiology; Visit Provider Family Medicine
DX: E11.8 Type 2 diabetes mellitus with unspecified complications (principal); R10.9 Unspecified abdominal pain
CPT/HCPCS: 36415; 78264; 84702; A9541

== ENCOUNTER 2021-01-21 10:16 | Outpatient (REF) | payer MEDICAID, SELFPAY ==
--- NOTE | ~2021-01-21 | MM_ITS ---
EXAMINATION: MM SCREENING DIGITAL BREAST TOMOSYNTHESIS, BILATERAL CLINICAL INFORMATION: Screening. Asymptomatic. The lifetime risk of breast cancer based on the Tyrer-Cuzick Model is 12%. COMPARISON: Mammography: 08/31/2017, 05/27/2016, 05/05/2015, 09/21/2013 TECHNIQUE: Digital breast tomosynthesis is performed in both the craniocaudal and mediolateral oblique views along with computer-aided detection (CAD). Synthesized 2D images are generated from the tomosynthesis. Additional right MLO view is provided. FINDINGS: The breasts are heterogeneously dense, which may obscure small masses (ACR BI-RADS breast composition Category c). There are no significant masses, abnormal calcifications, or other abnormalities. There are stable bilateral scattered parenchymal asymmetries similar to prior studies. No developing density. The axilla and skin contours are unremarkable. No significant changes. MM/MM tomosynthesis screening BI IMPRESSION: No mammographic evidence of malignancy. ASSESSMENT: BI-RADS 2: Benign RECOMMENDATION: Routine annual mammography screening. This patient's information was entered into a reminder system with a target due date for their next mammogram.
== END 2021-01-21 10:17 | disposition home or self-care (01) ==
LOC: HO.MAMMO 10:16
PROVIDERS: Visit Provider Internal Medicine
DX: Z12.31 Encounter for screening mammogram for malignant neoplasm of breast (principal)
CPT/HCPCS: 77063; 77067

== ENCOUNTER → 2021-01-26 09:01 | Outpatient (BNVA) | payer MEDICAID, SELFPAY | PROVIDERS: PCP Internal Medicine; Visit Provider Nurse Practitioner Gerontology | DX: E11.65 Type 2 diabetes mellitus with hyperglycemia (principal); I10 Essential (primary) hypertension; E78.5 Hyperlipidemia, unspecified; Z79.4 Long term (current) use of insulin | CPT/HCPCS: 82947; 99212 ==

== ENCOUNTER 2021-02-04 12:06 | Emergency (ER) | payer MEDICAID, SELFPAY ==
--- NOTE | ~2021-02-04 | CT_ITS ---
EXAMINATION: CT ABDOMEN AND PELVIS WITH CONTRAST CLINICAL INFORMATION: Right lower quadrant pain COMPARISON: CT scan of October 29, 2020 and August 29, 2020 TECHNIQUE: Multidetector volumetric images were obtained from the superior aspect of the liver through the pubic symphysis following administration 85 mL of Omnipaque 350 intravenous contrast. Sagittal and coronal reformatted images were obtained on the technologist's workstation. Oral contrast: No This CT examination was performed using dose optimization techniques as appropriate, variously including the following: *Automated exposure control *Adjustment of mA and/or kV according to patient size (this includes techniques or standardized protocols for targeted exams where dose is matched to indication/reason for exam; i.e. extremities or head) *Use of iterative reconstruction technique DLP: 741 mGy-cm FINDINGS: LUNG BASES: There is breathing artifact present. No significant acute parenchymal disease in the chest is identified. No pleural or pericardial effusion. Heart normal size. LIVER, GALLBLADDER, AND BILIARY TREE: The liver is normal in size, shape, and attenuation. No focal hepatic lesion or biliary ductal dilatation is present. The gallbladder is unremarkable with no evidence of radiopaque gallstones, gallbladder wall thickening, or obvious pericholecystic inflammatory changes. PANCREAS: Unremarkable. SPLEEN: Unremarkable. ADRENAL GLANDS: Unremarkable. KIDNEYS AND URETERS: The kidneys are normal in size, shape, and attenuation. No hydronephrosis, hydroureter, or calculi seen. No perinephric stranding. BLADDER: Unremarkable. GASTROINTESTINAL TRACT: No dilated loops of large or small bowel. No free air or free fluid. There is mild diverticulosis of the sigmoid colon. No evidence of acute diverticulitis. The appendix appears unremarkable. No pericolonic inflammatory change. ABDOMINAL WALL: There is a small fat-containing umbilical hernia. LYMPH NODES: No lymphadenopathy. VASCULAR: No abdominal aortic aneurysm. There is calcification of the femoral vessels bilaterally. PELVIC VISCERA: No abnormal pelvic mass or free fluid. OSSEOUS STRUCTURES: No destructive bony lesions are identified. Multilevel degenerative disc disease is noted. CT/CT abdomen pelvis w con IMPRESSION: No significant abdominal or pelvic abnormality appreciated.
[2021-02-04 12:11] VITALS: BP 111/61; PULSE 85; RESP 17; O2SAT 94; BMI 30.1
--- NOTE | 2021-02-04 12:13 | ECG_ITS ---
Test Reason : ABDOMINAL PAIN Blood Pressure : / mmHG Vent. Rate : 082 BPM Atrial Rate : 082 BPM P-R Int : 162 ms QRS Dur : 086 ms QT Int : 384 ms P-R-T Axes : 018 006 023 degrees QTc Int : 448 ms Normal sinus rhythm Cannot rule out Anterior infarct , age undetermined (but more likely from lead placement/body habitus) Abnormal ECG When compared with ECG of 03-OCT-2019 15:04, No significant change was found Referred By: Janell Madison Electronically Signed By:ANGELES BRYAN
--- NOTE | 2021-02-04 12:17 | ED_ITS ---
HPI - General Adult General Chief complaint: Headache Stated complaint: RLQ PAIN Time Seen by Provider: 02/04/21 12:08 Source: patient Mode of arrival: ambulatory Limitations: no limitations History of Present Illness HPI narrative: Patient comes emergency room complaining of right lower quadrant pain for 2 months but has gradually been getting more painful. Patient also complaining of a headache. Patient complaining of vomiting, no diarrhea. Patient denies dysuria, no fever, no flank pain. Related Data Home Medications Medication Instructions Recorded Confirmed acetaminophen 500 mg capsule 500 mg PO Q6H PRN 05/22/20 01/26/21 (Mapap (acetaminophen)) atorvastatin 80 mg tablet 80 mg PO DAILY 05/22/20 01/26/21 canagliflozin 100 mg tablet 100 mg PO DAILY 05/22/20 01/26/21 (Invokana) duloxetine 60 mg capsule,delayed 60 mg PO DAILY 05/22/20 01/26/21 release fluticasone propionate 50 1 spray INTRANASAL DAILY 05/22/20 01/26/21 mcg/actuation nasal spray,suspension (Allergy Relief (fluticasone)) ibuprofen 600 mg tablet 600 mg PO Q8H PRN 05/22/20 01/26/21 levetiracetam 1,000 mg tablet 1,500 mg PO Q12H 05/22/20 01/26/21 lisinopril 2.5 mg tablet 2.5 mg PO DAILY 05/22/20 01/26/21 meclizine 25 mg tablet 25 mg PO DAILY PRN 05/22/20 01/26/21 sucralfate 100 mg/mL oral 10 ml PO BID 05/22/20 01/26/21 suspension (Carafate) Previous Rx's Medication Instructions Recorded ondansetron HCl 4 mg tablet 4 mg PO Q8H PRN #14 tab 04/18/20 (Zofran) omeprazole 40 mg capsule,delayed 40 mg PO BID 30 Days #60 cap 05/22/20 release cephalexin 500 mg capsule (Keflex) 500 mg PO TID 7 Days #21 cap 06/17/20 doxycycline monohydrate 100 mg 100 mg PO BID 10 Days #20 cap 06/17/20 capsule cyclobenzaprine 5 mg tablet 5 mg PO TID PRN #14 tab 07/21/20 lidocaine 4 % topical patch 1 patch TOPICAL Q24H PRN 10 Days 07/21/20 ea naproxen 500 mg tablet 500 mg PO BID PRN #14 tab 07/21/20 sennosides 8.6 mg-docusate sodium 2 tab-cap PO BID 30 Days #120 tab 10/06/20 50 mg tablet (Senna with Docusate Sodium) lidocaine 4 % topical patch 1 patch TOPICAL DAILY PRN #10 ea 11/04/20 clotrimazole 1 % topical cream 1 appl TOPICAL BID PRN #15 g 12/09/20 clotrimazole 2 % vaginal cream 1 appful VAGINAL BEDTIME 3 Days 12/09/20 (Clotrimazole 3 Day) #21 g insulin glargine 100 unit/mL (3 32 unit SUBCUT BEDTIME 30 Days #15 01/20/21 mL) subcutaneous pen (Lantus ml Solostar U-100 Insulin) insulin lispro 100 unit/mL See Rx Instructions SUBCUT 01/20/21 subcutaneous pen (Humalog KwikPen .COMPLEX #15 ml (U-100) Insulin) Allergies Allergy/AdvReac Type Severity Reaction Status Date / Time No Known Allergies Allergy Mild N/A Verified 12/09/20 09:00 Review of Systems Review of Systems: Constitutional : No Weight loss, No Fever, No Chills, No Night Sweats, No Fatigue, No Malaise ENT/Mouth : No Hearing loss, No Ear Pain, No Nasal Congestion, No Sinus Pain, No Hoarseness, No sore throat, No Rhinorrhea, No Swallowing Difficulty Eyes: No Eye Pain, No Swelling, No Redness, No Foreign Body, No Discharge, No Vision Changes Cardiovascular : No Chest Pain, No SOB, No Dyspnea on Exertion, No Orthopnea, No Edema, No Palpitations Respiratory : No Cough, No Sputum, No Wheezing, No Smoke Exposure, No Dyspnea Gastrointestinal : Complaining of nausea and vomiting, No Diarrhea, No Constipation, complaining of acute on chronic right lower quadrant abdominal Pain, No Hematochezia, No Melena Genitourinary : no irregular bleeding, No Dysuria, No Urinary Frequency, No Hematuria, No Urinary Incontinence, No Urgency, No Flank Pain, No Urinary Flow Changes, No Hesitancy Musculoskeletal : No joint pain, No Myalgias, No Joint Swelling Skin : No Skin Lesions, No rash Neuro : No Weakness, No Numbness, No Paresthesias, No Loss of Consciousness, No Dizziness, complaining of Headache Psych : No Anxiety/Panic, No Depression, No SI/HI/AH/VH, No Social Issues, Heme/Lymph: No Bruising, No Bleeding,No Lymphadenopathy Endocrine : No Polyuria, No Polydipsia, No Temperature Intolerance [facility] Past Medical History Medical History Asthma Depression Diabetes Diabetic retinopathy Epilepsy Essential hypertension Hyperlipidemia Hyperlipidemia LDL goal <100 Hypertension Type 2 diabetes mellitus with hyperglycemia, with long-term current use of insulin Surgical History H/O section H/O esophagogastroduodenoscopy (03/14/18) History of ankle surgery Hx of colonoscopy (~06/2018) Family History Family History (Updated 11/17/20 @ 07:45 by Amber Acuña [facility]) Mother Diabetes Father Diabetes Social History Social History (Updated 01/26/21 @ 10:21 by Jose Quick [facility], [facility]) Household Members: Spouse and Children Alcohol intake: never Patient Tobacco Use Status: Never used Tobacco Use of substances other than those prescribed or required for medical reasons: No Advance Directives: Yes Advance Directives Information Provided: Yes Advance Directives on File: No Physical Exam Vital Signs: Vital Signs: Last Vital Signs Pulse 83 02/04/21 14:24 Resp 20 02/04/21 14:24 BP 135/76 02/04/21 14:24 Pulse Ox 95 02/04/21 14:24 Body Mass Index 30.1 Appearance: Alert. Oriented X3. No acute distress. Eyes: Pupils equal, round and reactive to light. ENT: Pharynx normal. Neck: Normal inspection. Neck supple. No lymph nodes noted. No crepitus CVS: Normal heart rate and rhythm. Pulses normal. Normal S1 and S2 Respiratory: No respiratory distress. Breath sounds normal. No Wheezing. No rales Abdomen: Soft mild discomfort to palpation diffusely but worse in the periumbilical area, no guarding, no rebound, No rigidity. No distention. Skin: Skin warm and dry. Normal skin color. Normal skin turgor. Extremities: No lower extremity edema. No Lacerations. No Rash Neuro: Oriented X 3. No motor deficit. No sensory deficit. Moving all extermities. No slurred speech. Course Course Course Narrative: Patient's CT scan and urinalysis is pending. Sign-out given to Dr. Ramesh Medical Decision Making Lab Data Result diagrams: 02/04/21 12:28 02/04/21 12:29 Labs: Lab Results 02/04/21 02/04/21 02/04/21 Range/Units 12: 12:29 15:22 WBC 6.9 (4.8-10.8) X10*3/uL RBC 3.97 L (4.20-5.50) X10*6/uL Hgb 11.7 L (12.0-16.0) g/dl Hct 35.3 L (37-47) % MCV 88.9 (80-98) fL MCH 29.5 (27.0-33.0) pg MCHC 33.1 (31.0-35.0) g/dl RDW 12.2 (11.0-16.0) % Plt Count 265 (160-400) X10*3/uL MPV 10.0 (9.4-12.3) fL Immature Gran % (Auto) 0.6 H (0.0-0.4) % Neut % (Auto) 62.8 (45-73) % Lymph % (Auto) 27.9 (20-40) % [place] % (Auto) 5.5 (2-11) % Eos % (Auto) 2.6 (0-4) % Baso % (Auto) 0.6 (0-2) % Lymph # (Auto) 1.9 (1.2-4.9) X10*3/uL [place] # (Auto) 0.4 (0.1-1.2) X10*3/uL Eos # (Auto) 0.2 (0.0-0.4) X10*3/uL Baso # (Auto) 0.0 (0.0-0.2) X10*3/uL Abs Immat Gran (auto) 0.04 H (0.00-0.03) X10*3/uL Absolute Neuts (auto) 4.3 (2.0-8.3) X10*3/uL Absolute Nucleated RBC 0.000 (0.0-0.012) X10*3/uL Nucleated RBC % (auto) 0.0 (0.0-0.2) /100WBC Sodium 137 (135-145) mmol/L Potassium 4.8 (3.3-5.1) mmol/L Chloride 103 (96-108) mmol/L Carbon Dioxide 27 (22-29) mmol/L Anion Gap 12 (12-20) BUN 16 (9-16) mg/dL Creatinine 0.84 (0.5-1.4) mg/dL Estim Creat Clear Calc 75.3 Estimated GFR > 60 POC Glucose 241 H (60-115) mg/dL Random Glucose 330 H (60-115) mg/dL Calcium 9.0 (8.4-10.2) mg/dL Total Bilirubin 0.8 (0.0-1.0) mg/dL Direct Bilirubin 0.2 (0.0-0.5) mg/dL AST 13 D (5-31) U/L ALT 8 (0-31) U/L Alkaline Phosphatase 111 (39-117) U/L Total Protein 6.3 L (6.5-8.0) g/dL Albumin 3.3 L (3.5-5.0) g/dL Lipase 22 (8-78) U/L Urine Color Urine Appearance Urine pH (5.0-8.0) Ur Specific [place] (1.005-1.025) Urine Protein (NEG-TRACE) MG/DL Urine Glucose (UA) (NEG) MG/DL Urine Ketones (NEG) MG/DL Urine Blood (NEG) Urine Nitrite (NEG) Ur Leukocyte Esterase (NEG) Acetone, Qual Negative (Negative) 02/04/21 Range/Units 15:25 WBC (4.8-10.8) X10*3/uL RBC (4.20-5.50) X10*6/uL Hgb (12.0-16.0) g/dl Hct (37-47) % MCV (80-98) fL MCH (27.0-33.0) pg MCHC (31.0-35.0) g/dl RDW (11.0-16.0) % Plt Count (160-400) X10*3/uL MPV (9.4-12.3) fL Immature Gran % (Auto) (0.0-0.4) % Neut % (Auto) (45-73) % Lymph % (Auto) (20-40) % [place] % (Auto) (2-11) % Eos % (Auto) (0-4) % Baso % (Auto) (0-2) % Lymph # (Auto) (1.2-4.9) X10*3/uL [place] # (Auto) (0.1-1.2) X10*3/uL Eos # (Auto) (0.0-0.4) X10*3/uL Baso # (Auto) (0.0-0.2) X10*3/uL Abs Immat Gran (auto) (0.00-0.03) X10*3/uL Absolute Neuts (auto) (2.0-8.3) X10*3/uL Absolute Nucleated RBC (0.0-0.012) X10*3/uL Nucleated RBC % (auto) (0.0-0.2) /100WBC Sodium (135-145) mmol/L Potassium (3.3-5.1) mmol/L Chloride (96-108) mmol/L Carbon Dioxide (22-29) mmol/L Anion Gap (12-20) BUN (9-16) mg/dL Creatinine (0.5-1.4) mg/dL Estim Creat Clear Calc Estimated GFR POC Glucose (60-115) mg/dL Random Glucose (60-115) mg/dL Calcium (8.4-10.2) mg/dL Total Bilirubin (0.0-1.0) mg/dL Direct Bilirubin (0.0-0.5) mg/dL AST (5-31) U/L ALT (0-31) U/L Alkaline Phosphatase (39-117) U/L Total Protein (6.5-8.0) g/dL Albumin (3.5-5.0) g/dL Lipase (8-78) U/L Urine Color YELLOW Urine Appearance HAZY Urine pH 6.0 (5.0-8.0) Ur Specific [place] 1.020 (1.005-1.025) Urine Protein NEG (NEG-TRACE) MG/DL Urine Glucose (UA) >=1000 H (NEG) MG/DL Urine Ketones NEG (NEG) MG/DL Urine Blood NEG (NEG) Urine Nitrite NEG (NEG) Ur Leukocyte Esterase NEG (NEG) Acetone, Qual (Negative) ECG Data Attestation: I personally reviewed and interpreted this ECG as follows: (Normal sinus rhythm, heart rate 82, nonspecific ST segment elevation in lead to less than 1 mm, no reciprocal changes, QTC 448) Discharge Plan Discharge Prescriptions: No Action sennosides-docusate sodium [Senna with Docusate Sodium] 8.6-50 mg tablet 2 tab-cap PO BID 30 Days Qty: 120 RF: 3 insulin lispro [Humalog KwikPen Insulin] 100 unit/mL insulin pen See Rx Instructions subcut .COMPLEX Qty: 15 RF: 0 Lantus Solostar U-100 Insulin 100 unit/mL (3 mL) insulin pen 32 unit subcut BEDTIME 30 Days Qty: 15 RF: 1 doxycycline monohydrate 100 mg capsule 100 mg PO BID 10 Days Qty: 20 RF: 0 cephalexin [Keflex] 500 mg capsule 500 mg PO TID 7 Days Qty: 21 RF: 0 lidocaine 4 % adhesive patch,medicated 1 patch topical Q24H PRN (Reason: pain) 10 Days RF: 0 cyclobenzaprine 5 mg tablet 5 mg PO TID PRN (Reason: muscle spasm) Qty: 14 RF: 0 naproxen 500 mg tablet 500 mg PO BID PRN (Reason: pain) Qty: 14 RF: 0 ondansetron HCl [Zofran] 4 mg tablet 4 mg PO Q8H PRN (Reason: nausea and vomiting) Qty: 14 RF: 0 lidocaine 4 % adhesive patch,medicated 1 patch topical DAILY PRN (Reason: pain) Qty: 10 RF: 0 Clotrimazole 3 Day 2 % cream 1 appful vaginal BEDTIME 3 Days Qty: 21 RF: 0 clotrimazole 1 % cream 1 appl topical BID PRN (Reason: Apply to vaginal rash, external use) Qty: 15 RF: 0 atorvastatin 80 mg tablet 80 mg PO DAILY RF: 0 duloxetine 60 mg capsule,delayed release(DR/EC) 60 mg PO DAILY RF: 0 sucralfate [Carafate] 100 mg/mL suspension 10 ml PO BID RF: 0 ibuprofen 600 mg tablet 600 mg PO Q8H PRNRF: 0 acetaminophen [Mapap (acetaminophen)] 500 mg capsule 500 mg PO Q6H PRNRF: 0 levetiracetam 1,000 mg tablet 1,500 mg PO Q12H RF: 0 lisinopril 2.5 mg tablet 2.5 mg PO DAILY RF: 0 fluticasone propionate [Allergy Relief (fluticasone)] 50 mcg/actuation spray,suspension 1 spray intranasal DAILY RF: 0 Invokana 100 mg tablet 100 mg PO DAILY RF: 0 meclizine 25 mg tablet 25 mg PO DAILY PRN (Reason: dizziness) RF: 0 omeprazole 40 mg capsule,delayed release(DR/EC) 40 mg PO BID 30 Days Qty: 60 RF: 4
[2021-02-04] MEDS: 0.9 % Sodium Chloride 1,000 ML 999 ML IVCONT (12:29)
[2021-02-04 12:40] LABS: MANUAL DIFF FLAG NO
[2021-02-04 12:42] LABS: Basophils Percent Auto 0.6 % (0-2); Eosinophils Absolute Auto 0.2 X10*3/uL (0.0-0.4); Eosinophils Percent Auto 2.6 % (0-4); Hematocrit 35.3 % (37-47); Hemoglobin 11.7 g/dl (12.0-16.0); Imm Gran Abs Auto 0.04 X10*3/uL (0.00-0.03); Imm Gran Pct Auto 0.6 % (0.0-0.4); Lymphocytes Absolute Auto 1.9 X10*3/uL (1.2-4.9); Lymphocytes Percent Auto 27.9 % (20-40); Mean Corpuscular HGB Conc 33.1 g/dl (31.0-35.0); Mean Corpuscular Hemoglobin 29.5 pg (27.0-33.0); Mean Corpuscular Volume 88.9 fL (80-98); Monocytes Absolute Auto 0.4 X10*3/uL (0.1-1.2); Monocytes Percent Auto 5.5 % (2-11); Neutrophils Absolute Auto 4.3 X10*3/uL (2.0-8.3); Neutrophils Percent Auto 62.8 % (45-73); Platelet Count 265 X10*3/uL (160-400); Red Blood Count 3.97 X10*6/uL (4.20-5.50); Red Cell Distribution Width 12.2 % (11.0-16.0); White Blood Count 6.9 X10*3/uL (4.8-10.8)
[2021-02-04 13:08] LABS: Alanine Aminotransferase 8 U/L (0-31); Albumin Level 3.3 g/dL (3.5-5.0); Alkaline Phosphatase 111 U/L (39-117); Anion Gap 12 (12-20); Aspartate Amino Transferase 13 U/L (5-31); Bilirubin Direct 0.2 mg/dL (0.0-0.5); Bilirubin Total 0.8 mg/dL (0.0-1.0); Blood Urea Nitrogen 16 mg/dL (9-16); Carbon Dioxide 27 mmol/L (22-29); Chloride 103 mmol/L (96-108); Creatinine Clr Calc Pharmacy 75.3; Estimated Glomerular Filt Rate > 60; Glucose Random 330 mg/dL (60-115); Lipase 22 U/L (8-78); Potassium 4.8 mmol/L (3.3-5.1); Sodium 137 mmol/L (135-145); Total Protein 6.3 g/dL (6.5-8.0)
[2021-02-04] MEDS: Acetaminophen 325 MG TABLET 650 MG PO (13:10)
[2021-02-04 13:12] VITALS: BP 127/77; PULSE 77; RESP 16; O2SAT 95
[2021-02-04 13:35] LABS: Acetone, serum QL Negative (Negative)
[2021-02-04 14:24] VITALS: BP 135/76; PULSE 83; RESP 20; O2SAT 95
[2021-02-04 15:29] LABS: Glucose, Whole Blood 241 mg/dL (60-115)
[2021-02-04 15:48] LABS: Glucose Urine UA >=1000 MG/DL (NEG); Leukocyte Esterase Urine NEG (NEG); Nitrite Urine NEG (NEG); Urine Blood NEG (NEG); Urine Ketones NEG (NEG); Urine Protein NEG (NEG-TRACE)
[2021-02-04 15:55] LABS: Appearance Urine HAZY; Color Urine YELLOW
--- NOTE | 2021-02-04 15:59 | PC.NURSE ---
patient to ct via stretcher. Pt is alert and in no distress
[2021-02-04 16:09] LABS: RBC Urine 0-2 /HPF (0)
[2021-02-04 16:10] LABS: Bacteria Urine 3+ /LPF; Squamous Epithelial Cell Urine 4+ /LPF
[2021-02-04] MEDS: iohexoL 350 MG/ML 100 ML INFUS..BTL IV (16:23)
[2021-02-04 17:17] VITALS: BP 144/81; PULSE 81; RESP 16; O2SAT 98
--- NOTE | 2021-02-04 17:20 | PC.NURSE ---
Patient resting quietly in bed with no complaints. Pt currently rates headache a 2/10 and denies abdominal pain.
== END 2021-02-04 18:27 | disposition home or self-care (01) ==
PROVIDERS: Emergency Medicine; Emergency Provider Emergency Medicine Emergency Medical Services; PCP Internal Medicine
DX: R10.31 Right lower quadrant pain (principal); R51.9 Headache, unspecified; E11.9 Type 2 diabetes mellitus without complications; I10 Essential (primary) hypertension; E78.5 Hyperlipidemia, unspecified; Z79.02 Long term (current) use of antithrombotics/antiplatelets; Z79.899 Other long term (current) drug therapy; Z79.4 Long term (current) use of insulin
CPT/HCPCS: 36415; 74177; 80048; 80076; 81001; 82009; 82947; 83690; 85025; 93005; 96361; 96374; 99284; 99285; Q9967

== ENCOUNTER 2021-02-09 07:28 | Outpatient (REF) | payer MEDICAID, SELFPAY ==
[2021-02-09 08:38] LABS: Estimated Average Glucose 335 mg/dL; Hemoglobin A1c % 13.3 %
[2021-02-09 09:10] LABS: Cholesterol 228 mg/dL; HDL Cholesterol 49 mg/dL; LDL Cholesterol Calculated 138 mg/dl; Triglycerides 207 mg/dL
== END 2021-02-09 07:29 | disposition home or self-care (01) ==
LOC: HO.LAB 07:28
PROVIDERS: PCP Internal Medicine; Visit Provider Nurse Practitioner Gerontology
DX: E11.65 Type 2 diabetes mellitus with hyperglycemia (principal); Z79.4 Long term (current) use of insulin
CPT/HCPCS: 36415; 80061; 83036

== ENCOUNTER → 2021-02-12 13:12 | Outpatient (BNVA) | payer MEDICAID, SELFPAY | PROVIDERS: PCP Internal Medicine; Visit Provider Nurse Practitioner Gerontology ==

== ENCOUNTER 2021-02-20 08:16 | Emergency (ER) | payer MEDICAID, SELFPAY ==
--- NOTE | ~2021-02-20 | XR_ITS ---
EXAMINATION: XR CHEST CLINICAL INFORMATION: Cough. COMPARISON: None TECHNIQUE: Frontal view of the chest was obtained. FINDINGS: No significant abnormality is noted involving the heart, lungs, mediastinum, bony thorax or soft tissues. XR/XR chest 1V IMPRESSION: Unremarkable chest examination.
--- NOTE | 2021-02-20 09:01 | ED.HA ---
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 States the cough keeps her up at night. MD elicited complaint: other (cough) Pertinent past history: other (states started after her COVID shot) Onset (ago): day(s) (4) Onset description: gradually Severity: mild Quality & Timing: aching Exacerbating factors: none Relieving factors: nothing Context: recent URI Associated symptoms: cough Treatments prior to arrival: other (tried a neb and oral steroids) Related Data Home Medications Medication Instructions Recorded Confirmed acetaminophen 500 mg capsule 500 mg PO Q6H PRN 05/22/20 02/12/21 (Mapap (acetaminophen)) atorvastatin 80 mg tablet 80 mg PO DAILY 05/22/20 02/12/21 duloxetine 60 mg capsule,delayed 60 mg PO DAILY 05/22/20 02/12/21 release fluticasone propionate 50 1 spray INTRANASAL DAILY 05/22/20 02/12/21 mcg/actuation nasal spray,suspension (Allergy Relief (fluticasone)) ibuprofen 600 mg tablet 600 mg PO Q8H PRN 05/22/20 02/12/21 levetiracetam 1,000 mg tablet 1,500 mg PO Q12H 05/22/20 02/12/21 lisinopril 2.5 mg tablet 2.5 mg PO DAILY 05/22/20 02/12/21 meclizine 25 mg tablet 25 mg PO DAILY PRN 05/22/20 02/12/21 sucralfate 100 mg/mL oral 10 ml PO BID 05/22/20 02/12/21 suspension (Carafate) Previous Rx's Medication Instructions Recorded ondansetron HCl 4 mg tablet 4 mg PO Q8H PRN #14 tab 04/18/20 (Zofran) omeprazole 40 mg capsule,delayed 40 mg PO BID 30 Days #60 cap 05/22/20 release cephalexin 500 mg capsule (Keflex) 500 mg PO TID 7 Days #21 cap 06/17/20 doxycycline monohydrate 100 mg 100 mg PO BID 10 Days #20 cap 06/17/20 capsule cyclobenzaprine 5 mg tablet 5 mg PO TID PRN #14 tab 07/21/20 lidocaine 4 % topical patch 1 patch TOPICAL Q24H PRN 10 Days 07/21/20 ea naproxen 500 mg tablet 500 mg PO BID PRN #14 tab 07/21/20 sennosides 8.6 mg-docusate sodium 2 tab-cap PO BID 30 Days #120 tab 10/06/20 50 mg tablet (Senna with Docusate Sodium) lidocaine 4 % topical patch 1 patch TOPICAL DAILY PRN #10 ea 11/04/20 clotrimazole 1 % topical cream 1 appl TOPICAL BID PRN #15 g 12/09/20 clotrimazole 2 % vaginal cream 1 appful VAGINAL BEDTIME 3 Days 12/09/20 (Clotrimazole 3 Day) #21 g canagliflozin 300 mg tablet 300 mg PO QAM #30 tab 02/12/21 (Invokana) ezetimibe 10 mg tablet 10 mg PO DAILY #30 tab 02/12/21 insulin glargine 100 unit/mL (3 28 unit SUBCUT BEDTIME 30 Days #15 02/12/21 mL) subcutaneous pen (Lantus ml Solostar U-100 Insulin) insulin lispro 100 unit/mL See Rx Instructions SUBCUT 02/12/21 subcutaneous pen (Humalog KwikPen .COMPLEX #15 ml (U-100) Insulin) hydrocodone-homatropine 5 mg-1.5 5 ml PO Q6H PRN #60 ml 02/20/21 mg/5 mL (5 mL) oral syrup Allergies Allergy/AdvReac Type Severity Reaction Status Date / Time No Known Allergies Allergy Mild N/A Verified 02/12/21 13:45 Review of Systems Review of Systems: Constitutional : No Weight loss, No Fever, No Chills, pos Fatigue, No Malaise ENT/Mouth : No sore throat, No Rhinorrhea Eyes: No Eye Pain, No Swelling, No Redness Cardiovascular : No Chest Pain, No SOB, No Dyspnea on Exertion, No Orthopnea, No Edema, No Palpitations Respiratory : pos Cough, No Sputum, No Wheezing Gastrointestinal : No Nausea, No Vomiting, No Diarrhea, No Constipation, No abdominal Pain, No Hematochezia, No Melena Genitourinary : No Dysuria, No Urinary Frequency, No Hematuria, Musculoskeletal : No joint pain, No Myalgias, No Joint Swelling Skin : No Skin Lesions, No rash Neuro : No Weakness, No Numbness, No Dizziness, No Headache Psych : No Anxiety/Panic, No Depression Heme/Lymph: No Bruising, No Bleeding,No Lymphadenopathy Endocrine : No Polyuria, No Polydipsia All other systems reviewed and are negative [facility] Past Medical History Attestation statement: The following information was validated with the patient. Medical History Asthma Depression Diabetes Diabetic retinopathy Epilepsy Essential hypertension Hyperlipidemia Hyperlipidemia LDL goal <100 Hypertension Type 2 diabetes mellitus with hyperglycemia, with long-term current use of insulin Surgical History H/O section H/O esophagogastroduodenoscopy (03/14/18) History of ankle surgery Hx of colonoscopy (~06/2018) Family History Family History Mother Diabetes Father Diabetes Social History Social History Household Members: Spouse and Children Alcohol intake: never Patient Tobacco Use Status: Never used Tobacco Use of substances other than those prescribed or required for medical reasons: No Advance Directives: No Advance Directives Information Provided: No Patient : No Physical Exam Vital Signs: Vital Signs: Last Vital Signs Temp 97.9 F 02/20/21 10:06 Pulse 94 02/20/21 10:06 Resp 16 02/20/21 10:06 BP 122/75 02/20/21 10:06 Pulse Ox 94 02/20/21 10:06 Body Mass Index 29.9 Appearance: Alert. Oriented X3. No acute distress. Eyes: Pupils equal, round and reactive to light. ENT: Pharynx normal. Neck: Normal inspection. Neck supple. CVS: Normal heart rate and rhythm. Pulses normal. Respiratory: No respiratory distress. Breath sounds normal. Abdomen: Soft and non-tender. Skin: Skin warm and dry. Normal skin color. Normal skin turgor. Extremities: No lower extremity edema. No calf ttp Neuro: Oriented X 3. No motor deficit. No sensory deficit. Course Course Course Narrative: xray and COVID swab negative, stable for DC at this time MDM - Headache MDM Narrative Medical decision making narrative: 55 yo female with asthma, HTN, HLD, DM, GERD comes in with cough that is keeping her up as well as not feeling well since COVID shot on Tuesday. Her lungs are clear. Will obtain CXR to r/o pneumonia, anti-tussive and COVID swab, dispo per results and findings. Lab Data Labs: Lab Results 02/20/21 02/20/21 Range/Units 09:45 10:03 POC Glucose 163 H (60-115) mg/dL COVID-19 ([facility]) Negative (Negative) COVID-19 Clin Com See Note Discharge Plan Discharge Clinical Impression: Cough Patient Disposition: Home, Self-Care Instructions: Acute Cough (ED) Additional Instructions: return to ED for any worsening symptoms or concerns CHEST XRAY NORMAL COVID SWAB NEGATIVE Prescriptions: New hydrocodone-homatropine 5-1.5 mg/5 mL (5 mL) syrup 5 ml PO Q6H PRN (Reason: cough) Qty: 60 RF: 0 No Action sennosides-docusate sodium [Senna with Docusate Sodium] 8.6-50 mg tablet 2 tab-cap PO BID 30 Days Qty: 120 RF: 3 doxycycline monohydrate 100 mg capsule 100 mg PO BID 10 Days Qty: 20 RF: 0 cephalexin [Keflex] 500 mg capsule 500 mg PO TID 7 Days Qty: 21 RF: 0 lidocaine 4 % adhesive patch,medicated 1 patch topical Q24H PRN (Reason: pain) 10 Days RF: 0 cyclobenzaprine 5 mg tablet 5 mg PO TID PRN (Reason: muscle spasm) Qty: 14 RF: 0 naproxen 500 mg tablet 500 mg PO BID PRN (Reason: pain) Qty: 14 RF: 0 ondansetron HCl [Zofran] 4 mg tablet 4 mg PO Q8H PRN (Reason: nausea and vomiting) Qty: 14 RF: 0 lidocaine 4 % adhesive patch,medicated 1 patch topical DAILY PRN (Reason: pain) Qty: 10 RF: 0 Clotrimazole 3 Day 2 % cream 1 appful vaginal BEDTIME 3 Days Qty: 21 RF: 0 clotrimazole 1 % cream 1 appl topical BID PRN (Reason: Apply to vaginal rash, external use) Qty: 15 RF: 0 Lantus Solostar U-100 Insulin 100 unit/mL (3 mL) insulin pen 28 unit subcut BEDTIME 30 Days Qty: 15 RF: 1 insulin lispro [Humalog KwikPen Insulin] 100 unit/mL insulin pen See Rx Instructions subcut .COMPLEX Qty: 15 RF: 1 Invokana 300 mg tablet 300 mg PO QAM Qty: 30 RF: 4 ezetimibe 10 mg tablet 10 mg PO DAILY Qty: 30 RF: 5 atorvastatin 80 mg tablet 80 mg PO DAILY RF: 0 duloxetine 60 mg capsule,delayed release(DR/EC) 60 mg PO DAILY RF: 0 sucralfate [Carafate] 100 mg/mL suspension 10 ml PO BID RF: 0 ibuprofen 600 mg tablet 600 mg PO Q8H PRNRF: 0 acetaminophen [Mapap (acetaminophen)] 500 mg capsule 500 mg PO Q6H PRNRF: 0 levetiracetam 1,000 mg tablet 1,500 mg PO Q12H RF: 0 lisinopril 2.5 mg tablet 2.5 mg PO DAILY RF: 0 fluticasone propionate [Allergy Relief (fluticasone)] 50 mcg/actuation spray,suspension 1 spray intranasal DAILY RF: 0 meclizine 25 mg tablet 25 mg PO DAILY PRN (Reason: dizziness) RF: 0 omeprazole 40 mg capsule,delayed release(DR/EC) 40 mg PO BID 30 Days Qty: 60 RF: 4 Referrals: Rachael Brown MD [Primary Care Provider] - 2 days (IF NOT BETTER) Print Language: [place] Citizen
[2021-02-20 09:18] VITALS: BP 123/83; PULSE 95; RESP 18; TEMP 36.7; O2SAT 97; BMI 29.9
[2021-02-20] MEDS: HYDROcodone/Homat 5/1.5/5 ML 5 ML SYRUP PO (09:22)
[2021-02-20] MEDS: Benzonatate 100 MG CAPSULE 200 MG PO (09:22)
--- NOTE | 2021-02-20 10:04 | PC.NURSE ---
RN aware POC 163
[2021-02-20 10:06] VITALS: BP 122/75; PULSE 94; RESP 16; TEMP 36.6; O2SAT 94
[2021-02-20 10:10] LABS: Glucose, Whole Blood 163 mg/dL (60-115)
[2021-02-20 10:11] LABS: COVID-19 Test Negative (Negative); IDNOW Serial# 08D9AD1C
== END 2021-02-20 10:30 | disposition home or self-care (01) ==
PROVIDERS: Emergency Provider Emergency Medicine; PCP Internal Medicine
DX: R51.9 Headache, unspecified (principal); R05 Cough; Z79.899 Other long term (current) drug therapy; Z20.822 Contact with and (suspected) exposure to COVID-19
CPT/HCPCS: 36415; 71045; 82947; 87635; 99283; 99284

== ENCOUNTER 2021-02-26 08:13 | Emergency (ER) | payer MEDICAID, SELFPAY ==
[2021-02-26 09:09] VITALS: BP 141/87; PULSE 96; RESP 18; TEMP 36; O2SAT 99; BMI 31.1
--- NOTE | 2021-02-26 09:35 | ED_ITS ---
HPI - General Adult General Chief complaint: Skin/Abscess/Foreign Body Stated complaint: lump under armpit Time Seen by Provider: 02/26/21 09:34 Source: patient Limitations: no limitations History of Present Illness HPI narrative: Patient presents with an abscess to the left axilla. Patient has had similar episodes in the past. Patient is a known diabetic. Patient states symptoms ongoing over the past 2-3 days. No discharge at this time. Patient thinks she may have a fever but does not have 1 at this time. Pain is 6/10 and increases with palpation of the abscess. No nausea vomiting chest pain shortness of breath at this time. No other complaints. Related Data Home Medications Medication Instructions Recorded Confirmed acetaminophen 500 mg capsule 500 mg PO Q6H PRN 05/22/20 02/12/21 (Mapap (acetaminophen)) atorvastatin 80 mg tablet 80 mg PO DAILY 05/22/20 02/12/21 duloxetine 60 mg capsule,delayed 60 mg PO DAILY 05/22/20 02/12/21 release fluticasone propionate 50 1 spray INTRANASAL DAILY 05/22/20 02/12/21 mcg/actuation nasal spray,suspension (Allergy Relief (fluticasone)) ibuprofen 600 mg tablet 600 mg PO Q8H PRN 05/22/20 02/12/21 levetiracetam 1,000 mg tablet 1,500 mg PO Q12H 05/22/20 02/12/21 lisinopril 2.5 mg tablet 2.5 mg PO DAILY 05/22/20 02/12/21 meclizine 25 mg tablet 25 mg PO DAILY PRN 05/22/20 02/12/21 sucralfate 100 mg/mL oral 10 ml PO BID 05/22/20 02/12/21 suspension (Carafate) Previous Rx's Medication Instructions Recorded ondansetron HCl 4 mg tablet 4 mg PO Q8H PRN #14 tab 04/18/20 (Zofran) omeprazole 40 mg capsule,delayed 40 mg PO BID 30 Days #60 cap 05/22/20 release cephalexin 500 mg capsule (Keflex) 500 mg PO TID 7 Days #21 cap 06/17/20 doxycycline monohydrate 100 mg 100 mg PO BID 10 Days #20 cap 06/17/20 capsule cyclobenzaprine 5 mg tablet 5 mg PO TID PRN #14 tab 07/21/20 lidocaine 4 % topical patch 1 patch TOPICAL Q24H PRN 10 Days 07/21/20 ea naproxen 500 mg tablet 500 mg PO BID PRN #14 tab 07/21/20 sennosides 8.6 mg-docusate sodium 2 tab-cap PO BID 30 Days #120 tab 10/06/20 50 mg tablet (Senna with Docusate Sodium) lidocaine 4 % topical patch 1 patch TOPICAL DAILY PRN #10 ea 11/04/20 clotrimazole 1 % topical cream 1 appl TOPICAL BID PRN #15 g 12/09/20 clotrimazole 2 % vaginal cream 1 appful VAGINAL BEDTIME 3 Days 12/09/20 (Clotrimazole 3 Day) #21 g canagliflozin 300 mg tablet 300 mg PO QAM #30 tab 02/12/21 (Invokana) ezetimibe 10 mg tablet 10 mg PO DAILY #30 tab 02/12/21 insulin glargine 100 unit/mL (3 28 unit SUBCUT BEDTIME 30 Days #15 02/12/21 mL) subcutaneous pen (Lantus ml Solostar U-100 Insulin) insulin lispro 100 unit/mL See Rx Instructions SUBCUT 02/12/21 subcutaneous pen (Humalog KwikPen .COMPLEX #15 ml (U-100) Insulin) hydrocodone-homatropine 5 mg-1.5 5 ml PO Q6H PRN #60 ml 02/20/21 mg/5 mL (5 mL) oral syrup doxycycline hyclate 100 mg capsule 100 mg PO BID #20 cap 02/26/21 Allergies Allergy/AdvReac Type Severity Reaction Status Date / Time No Known Allergies Allergy Mild N/A Verified 02/12/21 13:45 Review of Systems Review of Systems: Constitutional : No Weight loss, question Fever, No Chills Cardiovascular : No Chest Pain, No SOB, No Dyspnea on Exertion, No Orthopnea, No Edema, No Palpitations Respiratory : No Cough, No Sputum, No Wheezing, No Smoke Exposure, No Dyspnea Gastrointestinal : No Nausea, No Vomiting, No Diarrhe Musculoskeletal : No joint pain, No Myalgias, No Joint SwellingSkin : No Skin Lesions, No rash Neuro : No Weakness, No Numbness, No Paresthesias, No Loss of Consciousness, No Dizziness, No Headache Psych : No Anxiety/Panic, No Depression, No SI/HI/AH/VH, No Social Issues, Heme/Lymph: Positive abscess left axilla Endocrine : No Polyuria, No Polydipsia, No Temperature Intolerance [facility] Past Medical History Attestation statement: The following information was validated with the patient. Medical History Asthma Depression Diabetes Diabetic retinopathy Epilepsy Essential hypertension Hyperlipidemia Hyperlipidemia LDL goal <100 Hypertension Type 2 diabetes mellitus with hyperglycemia, with long-term current use of insulin Surgical History H/O section H/O esophagogastroduodenoscopy (03/14/18) History of ankle surgery Hx of colonoscopy (~06/2018) Family History Family History Mother Diabetes Father Diabetes Social History Social History Household Members: Spouse and Children Alcohol intake: never Patient Tobacco Use Status: Never used Tobacco Advance Directives: No Advance Directives Information Provided: No Patient : No Physical Exam Vital Signs: Vital Signs: Last Vital Signs Temp 96.8 F 02/26/21 09:09 Pulse 96 02/26/21 09:09 Resp 18 02/26/21 09:09 BP 141/87 H 02/26/21 09:09 Pulse Ox 99 02/26/21 09:09 Body Mass Index 31.1 vital signs have been reviewed as normal and appeared to be correct. Blood pressure normal. Heart rate normal. Respiration rate normal. Temperature normal. Oxygen saturation normal. Appearance: Alert. Oriented X3. No acute distress. Head: Normal external exam. Normocephalic. Atraumatic. No Earl signs noted. No raccoon eyes noted Eyes: PERRLA. EOMI. Conjunctiva and sclera normal. Eyelids normal. ENT: Pharynx normal. Uvula midline. Moist mucous membranes. Neck: Soft full range of motion, no JVD CVS: Heart regular rate and rhythm no murmurs and rubs Respiratory: Breath sounds are clear to auscultation bilaterally. No accessory muscle use noted. Skin: Left axilla there is a very small indurated abscess approximately 1 cm in size no discharge at this time positive tenderness Extremities: No lower extremity edema. Extremities exhibit normal range of motion. Extremities nontender. Neuro: Oriented X 3. No motor deficit. No sensory deficit. Reflexes normal. Course Course Course Narrative: Left axillary abscess I&D left abscess Cellulitis Patient is a very small left axilla abscess plan to do needle aspirate place patient on antibiotics Procedure note Left axilla abscess I&D Wound cleaned with Betadine saline copiously Anesthetized with 1% lidocaine Eleven blade insertion small amount of purulent discharge obtained no packing needed at this time Discharge Plan Discharge Clinical Impression: Abscess of axilla, left Patient Disposition: Home, Self-Care Instructions: Abscess (ED), Incision and Drainage (ED) Additional Instructions: Warm compresses 2 to 3 times a day Follow-up with PCP as needed Prescriptions: New doxycycline hyclate 100 mg capsule 100 mg PO BID Qty: 20 RF: 0 No Action sennosides-docusate sodium [Senna with Docusate Sodium] 8.6-50 mg tablet 2 tab-cap PO BID 30 Days Qty: 120 RF: 3 doxycycline monohydrate 100 mg capsule 100 mg PO BID 10 Days Qty: 20 RF: 0 cephalexin [Keflex] 500 mg capsule 500 mg PO TID 7 Days Qty: 21 RF: 0 lidocaine 4 % adhesive patch,medicated 1 patch topical Q24H PRN (Reason: pain) 10 Days RF: 0 cyclobenzaprine 5 mg tablet 5 mg PO TID PRN (Reason: muscle spasm) Qty: 14 RF: 0 naproxen 500 mg tablet 500 mg PO BID PRN (Reason: pain) Qty: 14 RF: 0 ondansetron HCl [Zofran] 4 mg tablet 4 mg PO Q8H PRN (Reason: nausea and vomiting) Qty: 14 RF: 0 lidocaine 4 % adhesive patch,medicated 1 patch topical DAILY PRN (Reason: pain) Qty: 10 RF: 0 Clotrimazole 3 Day 2 % cream 1 appful vaginal BEDTIME 3 Days Qty: 21 RF: 0 clotrimazole 1 % cream 1 appl topical BID PRN (Reason: Apply to vaginal rash, external use) Qty: 15 RF: 0 hydrocodone-homatropine 5-1.5 mg/5 mL (5 mL) syrup 5 ml PO Q6H PRN (Reason: cough) Qty: 60 RF: 0 Lantus Solostar U-100 Insulin 100 unit/mL (3 mL) insulin pen 28 unit subcut BEDTIME 30 Days Qty: 15 RF: 1 insulin lispro [Humalog KwikPen Insulin] 100 unit/mL insulin pen See Rx Instructions subcut .COMPLEX Qty: 15 RF: 1 Invokana 300 mg tablet 300 mg PO QAM Qty: 30 RF: 4 ezetimibe 10 mg tablet 10 mg PO DAILY Qty: 30 RF: 5 atorvastatin 80 mg tablet 80 mg PO DAILY RF: 0 duloxetine 60 mg capsule,delayed release(DR/EC) 60 mg PO DAILY RF: 0 sucralfate [Carafate] 100 mg/mL suspension 10 ml PO BID RF: 0 ibuprofen 600 mg tablet 600 mg PO Q8H PRNRF: 0 acetaminophen [Mapap (acetaminophen)] 500 mg capsule 500 mg PO Q6H PRNRF: 0 levetiracetam 1,000 mg tablet 1,500 mg PO Q12H RF: 0 lisinopril 2.5 mg tablet 2.5 mg PO DAILY RF: 0 fluticasone propionate [Allergy Relief (fluticasone)] 50 mcg/actuation spray,suspension 1 spray intranasal DAILY RF: 0 meclizine 25 mg tablet 25 mg PO DAILY PRN (Reason: dizziness) RF: 0 omeprazole 40 mg capsule,delayed release(DR/EC) 40 mg PO BID 30 Days Qty: 60 RF: 4 Referrals: Rachael Brown MD [Primary Care Provider] - 2 days Interventions: ED Discharge Assessment Last Done: 02/26/21 10:40 Discharge Date/Time: 02/26/21 10:30 Print Language: Serbian
[2021-02-26] MEDS: Lidocaine HCl 1 % 20 ML VIAL 5 ML INFILTRATI (10:16)
== END 2021-02-26 10:30 | disposition home or self-care (01) ==
PROVIDERS: Emergency Provider Internal Medicine; PCP Internal Medicine
DX: L02.412 Cutaneous abscess of left axilla (principal); E11.9 Type 2 diabetes mellitus without complications; I10 Essential (primary) hypertension; E78.5 Hyperlipidemia, unspecified; Z79.899 Other long term (current) drug therapy; Z79.02 Long term (current) use of antithrombotics/antiplatelets; Z79.4 Long term (current) use of insulin
CPT/HCPCS: 10060; 99283; 99284

== ENCOUNTER → 2021-03-09 09:14 | Outpatient (BNVA) | payer MEDICAID, SELFPAY | PROVIDERS: PCP Internal Medicine; Referring Provider Internal Medicine; Visit Provider Internal Medicine Gastroenterology ==

== ENCOUNTER 2021-03-25 09:51 | Emergency (ER) | payer MEDICAID, SELFPAY ==
--- NOTE | 2021-03-25 | ECG_ITS ---
Test Reason : CHEST PAIN Blood Pressure : / mmHG Vent. Rate : 081 BPM Atrial Rate : 081 BPM P-R Int : 154 ms QRS Dur : 092 ms QT Int : 358 ms P-R-T Axes : 016 013 027 degrees QTc Int : 415 ms Normal sinus rhythm Normal ECG When compared with ECG of 04-FEB-2021 12:36, No significant change was found Referred By: Ken Jhaveri Electronically Signed By:ROSALIA DAO
--- NOTE | ~2021-03-25 | XR_ITS ---
EXAMINATION: XR CHEST CLINICAL INFORMATION: Chest pain since last night. COMPARISON: Chest 02/20/2021. TECHNIQUE: Frontal view of the chest was obtained. FINDINGS: No significant abnormality is noted involving the heart, lungs, mediastinum, bony thorax or soft tissues. XR/XR chest 1V IMPRESSION: Unremarkable chest examination.
--- NOTE | ~2021-03-25 | CT_ITS ---
EXAMINATION: CT ABDOMEN AND PELVIS WITH CONTRAST CLINICAL INFORMATION: Left lower quadrant pain. COMPARISON: None TECHNIQUE: Multidetector volumetric images were obtained from the superior aspect of the liver through the pubic symphysis following administration 85 mL of Omnipaque 350 intravenous contrast. Sagittal and coronal reformatted images were obtained on the technologist's workstation. Oral contrast: No This CT examination was performed using dose optimization techniques as appropriate, variously including the following: *Automated exposure control *Adjustment of mA and/or kV according to patient size (this includes techniques or standardized protocols for targeted exams where dose is matched to indication/reason for exam; i.e. extremities or head) *Use of iterative reconstruction technique DLP: 637 mGy-cm FINDINGS: LUNG BASES: The heart size is normal. The lung bases are clear. LIVER, GALLBLADDER, AND BILIARY TREE: The liver is normal in size, shape, and attenuation. No focal hepatic lesion or biliary ductal dilatation is present. The gallbladder is unremarkable with no evidence of radiopaque gallstones, gallbladder wall thickening, or obvious pericholecystic inflammatory changes. PANCREAS: Unremarkable. SPLEEN: Unremarkable. ADRENAL GLANDS: Unremarkable. KIDNEYS AND URETERS: The kidneys are normal in size, shape, and attenuation. No hydronephrosis, hydroureter, or calculi seen. No perinephric stranding. BLADDER: Unremarkable. GASTROINTESTINAL TRACT: There is scattered stool, gas seen throughout the colon without any significant distention. The small bowel loops and appendix is normal caliber. The stomach is nondistended. No inflammatory process, free air or free fluid seen. ABDOMINAL WALL: A small amount of coronary containing fat is noted. LYMPH NODES: There are no abnormal lymph nodes visualized. VASCULAR: Unremarkable. PELVIC VISCERA: The uterus is anteverted and appears unremarkable. There is no free fluid. OSSEOUS STRUCTURES: There are degenerative disc changes L5-S1 and L4-L5 disc level with moderate degenerative spondylosis L3-L4, L4-L5 and L5-S1 disc levels. CT/CT abdomen pelvis w con IMPRESSION: No acute intra-abdominal process seen. Moderate constipation. No obstruction seen. There is no radiopaque urolith or hydroureteronephrosis.
[2021-03-25 09:56] VITALS: BP 136/86; PULSE 82; O2SAT 100
[2021-03-25 10:02] VITALS: BP 137/79; PULSE 82; RESP 16; TEMP 36.6; O2SAT 99; BMI 29.2
--- NOTE | 2021-03-25 10:09 | ED_ITS ---
HPI - General Adult General Chief complaint: General Medical Stated complaint: CHEST TIGHTNESS, ASA GIVEN,NO IV,NONDX 12 LEAD Time Seen by Provider: 03/25/21 10:06 Source: patient Mode of arrival: ambulatory Limitations: no limitations History of Present Illness HPI narrative: Patient presents to ED for multiple complaints. Patient states chest tightness since last night. Patient denies any swelling of lower ext remities, calf pain, coughing up blood, fever, or chills. Patient denies any recent long travel or recent surgery. Patient denies any recent trauma. Patient's secondary complaint is left lower quadrant pain that is very painful on palpation with mild dysuria. Patient denies any recent long travel, recent surgery, estrogen use, any history of blood clots. Patient denies any pleuritic chest pain. Related Data Home Medications Medication Instructions Recorded Confirmed acetaminophen 500 mg capsule 500 mg PO Q6H PRN 05/22/20 02/12/21 (Mapap (acetaminophen)) atorvastatin 80 mg tablet 80 mg PO DAILY 05/22/20 02/12/21 duloxetine 60 mg capsule,delayed 60 mg PO DAILY 05/22/20 02/12/21 release fluticasone propionate 50 1 spray INTRANASAL DAILY 05/22/20 02/12/21 mcg/actuation nasal spray,suspension (Allergy Relief (fluticasone)) ibuprofen 600 mg tablet 600 mg PO Q8H PRN 05/22/20 02/12/21 levetiracetam 1,000 mg tablet 1,500 mg PO Q12H 05/22/20 02/12/21 lisinopril 2.5 mg tablet 2.5 mg PO DAILY 05/22/20 02/12/21 meclizine 25 mg tablet 25 mg PO DAILY PRN 05/22/20 02/12/21 sucralfate 100 mg/mL oral 10 ml PO BID 05/22/20 02/12/21 suspension (Carafate) Previous Rx's Medication Instructions Recorded ondansetron HCl 4 mg tablet 4 mg PO Q8H PRN #14 tab 04/18/20 (Zofran) omeprazole 40 mg capsule,delayed 40 mg PO BID 30 Days #60 cap 05/22/20 release cephalexin 500 mg capsule (Keflex) 500 mg PO TID 7 Days #21 cap 06/17/20 doxycycline monohydrate 100 mg 100 mg PO BID 10 Days #20 cap 06/17/20 capsule cyclobenzaprine 5 mg tablet 5 mg PO TID PRN #14 tab 07/21/20 lidocaine 4 % topical patch 1 patch TOPICAL Q24H PRN 10 Days 07/21/20 ea naproxen 500 mg tablet 500 mg PO BID PRN #14 tab 07/21/20 sennosides 8.6 mg-docusate sodium 2 tab-cap PO BID 30 Days #120 tab 10/06/20 50 mg tablet (Senna with Docusate Sodium) lidocaine 4 % topical patch 1 patch TOPICAL DAILY PRN #10 ea 11/04/20 clotrimazole 1 % topical cream 1 appl TOPICAL BID PRN #15 g 12/09/20 clotrimazole 2 % vaginal cream 1 appful VAGINAL BEDTIME 3 Days 12/09/20 (Clotrimazole 3 Day) #21 g canagliflozin 300 mg tablet 300 mg PO QAM #30 tab 02/12/21 (Invokana) ezetimibe 10 mg tablet 10 mg PO DAILY #30 tab 02/12/21 insulin glargine 100 unit/mL (3 28 unit SUBCUT BEDTIME 30 Days #15 02/12/21 mL) subcutaneous pen (Lantus ml Solostar U-100 Insulin) insulin lispro 100 unit/mL See Rx Instructions SUBCUT 02/12/21 subcutaneous pen (Humalog KwikPen .COMPLEX #15 ml (U-100) Insulin) hydrocodone-homatropine 5 mg-1.5 5 ml PO Q6H PRN #60 ml 02/20/21 mg/5 mL (5 mL) oral syrup doxycycline hyclate 100 mg capsule 100 mg PO BID #20 cap 02/26/21 sennosides 8.6 mg tablet (Natural 8.6 mg PO DAILY #10 tab 03/25/21 Senna Laxative) Allergies Allergy/AdvReac Type Severity Reaction Status Date / Time No Known Allergies Allergy Mild N/A Verified 03/09/21 09:29 Review of Systems Review of Systems: Yes all other systems are reviewed and are negative Constitutional: Constitutional: Reports as per HPI and Reports no additional constitutional complaints Eyes: Eyes: Reports as per HPI and Reports no additional eye complaints ENT: Reports system reviewed and no additional complaints, except as documented and Reports as per HPI Cardiovascular: Cardiovascular: Reports as per HPI, Reports no additional cardiovascular complaints and Reports chest pain (Chest discomfort) Gastrointestinal: Gastrointestinal: Reports as per HPI, Reports no additional gastrointestinal complaints, Reports abdominal pain (Left lower quadrant), Denies nausea and Denies vomiting Genitourinary: Genitourinary: Reports no additional female genitourinary complaints and Reports change in libido Musculoskeletal: Musculoskeletal: Reports no additional musculoskeletal complaints and Reports as per HPI Neurologic: Reports system reviewed and no additional complaints, except as documented and Reports as per HPI Psychiatric: Psychiatric: Reports no additional psychiatric complaints, Reports as per HPI and Reports change in libido Endocrine: Endocrine: Reports change in libido [facility] Past Medical History Medical History Asthma Depression Diabetes Diabetic retinopathy Epilepsy Essential hypertension Hyperlipidemia Hyperlipidemia LDL goal <100 Hypertension Type 2 diabetes mellitus with hyperglycemia, with long-term current use of insulin Surgical History H/O section H/O esophagogastroduodenoscopy (03/14/18) History of ankle surgery Hx of colonoscopy (~06/2018) Family History Family History Mother Diabetes Father Diabetes Social History Social History Household Members: Spouse and Children Alcohol intake: never Patient Tobacco Use Status: Never used Tobacco Use of substances other than those prescribed or required for medical reasons: No Advance Directives: No Advance Directives Information Provided: No Physical Exam Vital Signs: Vital Signs: Last Vital Signs Temp 98.2 F 03/25/21 16:00 Pulse 76 03/25/21 16:00 Resp 18 03/25/21 16:00 BP 115/68 03/25/21 16:00 Pulse Ox 98 03/25/21 16:00 Body Mass Index 29.2 Const: General: cooperative, healthy appearing, comfortable, no acute distress, well developed, alert, awake and Physically active Orientation/consciousness: patient oriented x3 HENMT: Head: Yes normal to inspection, Yes No palpable skull fracture present, Yes normocephalic, Yes atraumatic and No abrasion Eyes: General: appearance normal, both eyes and all related structures Neck: Neck: Yes normal visual inspection, Yes full ROM, Yes no lymphadenopathy, Yes no meningeal signs, Yes trachea midline, Yes supple and No tender Chest: Chest palpation & inspection: normal inspection of the chest and normal palpation of entire chest wall Resp: Effort & Inspection: normal respiratory effort and able to speak in complete sentences Auscultation: clear to auscultation bilaterally, no crackles, no rales, no rhonchi and no wheezes Cardio: Jugular venous distension: no JVD Heart sounds: S1 normal heart sound present and S2 normal heart sound present GI: Inspection: Yes normal to inspection and No abdominal wall ecchymosis Palpation (GI): Soft to palpation, not firm, Tenderness to palpation present (GI) in the LLQ, no guarding and not rigid : General: No CVA tenderness and Yes no CVA tenderness Back/Spine/Pelvis: Back: no CVA tenderness, No CVA tenderness and No back tenderness Skin: General skin exam: no rashes or lesions noted and elasticity normal Neuro: General: patient oriented x3, gait normal, no meningeal signs and CN's II-XI intact bilaterally Cranial nerves: Yes CN's II-XII intact bilaterally Extrem: Other: Lower extremities negative for swelling, pitting edema, calf tenderness. General: Yes normal to inspection and Yes full ROM Psych: Appearance: grossly normal, well kempt and not disheveled Course Course Course Narrative: Patient will have EKG and cardiac enzymes drawn due to medical history of diabetes. Patient given GI cocktail for chest pain. Patient received aspirin in the ED. patient tender in left lower quadrant will send UA. Reevaluation(s) Reevaluation #1: Patient's 1st troponin came back negative. Chest discomfort was resolved after GI cocktail. Patient would like to eat but due to left lower quadrant tenderness will sent for abdominal CT scan to rule out any abdominal etiology. UA negative for UTI. EKG negative for STEMI Time: 10:31 Reevaluation #2: Second troponin negative. Abdominal CT scan came back normal and just shows constipation. Patient will be discharged. Time: 17:20 Medical Decision Making [facility] Narrative Medical decision making narrative: GERD. Constipation. Atypical chest pain Lab Data Result diagrams: 03/25/21 10:32 03/25/21 10:31 Labs: Lab Results 03/25/21 03/25/21 03/25/21 Range/Units 10:31 10:31 10:31 WBC (4.8-10.8) X10*3/uL RBC (4.20-5.50) X10*6/uL Hgb (12.0-16.0) g/dl Hct (37-47) % MCV (80-98) fL MCH (27.0-33.0) pg MCHC (31.0-35.0) g/dl RDW (11.0-16.0) % Plt Count (160-400) X10*3/uL MPV (9.4-12.3) fL Immature Gran % (Auto) (0.0-0.4) % Neut % (Auto) (45-73) % Lymph % (Auto) (20-40) % Kleberg % (Auto) (2-11) % Eos % (Auto) (0-4) % Baso % (Auto) (0-2) % Lymph # (Auto) (1.2-4.9) X10*3/uL Kleberg # (Auto) (0.1-1.2) X10*3/uL Eos # (Auto) (0.0-0.4) X10*3/uL Baso # (Auto) (0.0-0.2) X10*3/uL Abs Immat Gran (auto) (0.00-0.03) X10*3/uL Absolute Neuts (auto) (2.0-8.3) X10*3/uL Absolute Nucleated RBC (0.0-0.012) X10*3/uL Nucleated RBC % (auto) (0.0-0.2) /100WBC PT 11.2 (9.9-13.0) SEC INR 1.0 (0.9-1.1) APTT 27.8 (24.1-38.0) SEC Sodium 138 (135-145) mmol/L Potassium 4.1 (3.3-5.1) mmol/L Chloride 102 (96-108) mmol/L Carbon Dioxide 29 (22-29) mmol/L Anion Gap 11 L (12-20) BUN 18 H (9-16) mg/dL Creatinine 0.86 (0.5-1.4) mg/dL Estim Creat Clear Calc 72.4 Estimated GFR > 60 Random Glucose 230 H (60-115) mg/dL Calcium 9.5 (8.4-10.2) mg/dL Total Bilirubin 0.8 (0.0-1.0) mg/dL Direct Bilirubin 0.2 (0.0-0.5) mg/dL AST 11 (5-31) U/L ALT 10 (0-31) U/L Alkaline Phosphatase 121 H (39-117) U/L Troponin I High Sens < 3.5 (<3.5-17.0) ng/L B-Natriuretic Peptide (<100) pg/mL Total Protein 6.7 (6.5-8.0) g/dL Albumin 3.6 (3.5-5.0) g/dL Lipase 29 (8-78) U/L Urine Color Urine Appearance Urine pH (5.0-8.0) Ur Specific Dav[place] (1.005-1.025) Urine Protein (NEG-TRACE) MG/DL Urine Glucose (UA) (NEG) MG/DL Urine Ketones (NEG) MG/DL Urine Blood (NEG) Urine Nitrite (NEG) Ur Leukocyte Esterase (NEG) Urine RBC (0) /HPF Urine WBC (0-4) /HPF Ur Squamous Epith Cells /LPF Urine Bacteria /LPF 03/25/21 03/25/21 03/25/21 Range/Units 10:31 10:32 13:48 WBC 7.5 (4.8-10.8) X10*3/uL RBC 4.45 (4.20-5.50) X10*6/uL Hgb 12.9 (12.0-16.0) g/dl Hct 39.6 (37-47) % MCV 89.0 (80-98) fL MCH 29.0 (27.0-33.0) pg MCHC 32.6 (31.0-35.0) g/dl RDW 12.2 (11.0-16.0) % Plt Count 266 (160-400) X10*3/uL MPV 9.7 (9.4-12.3) fL Immature Gran % (Auto) 0.3 (0.0-0.4) % Neut % (Auto) 62.1 (45-73) % Lymph % (Auto) 28.8 (20-40) % Kleberg % (Auto) 5.3 (2-11) % Eos % (Auto) 2.8 (0-4) % Baso % (Auto) 0.7 (0-2) % Lymph # (Auto) 2.2 (1.2-4.9) X10*3/uL Kleberg # (Auto) 0.4 (0.1-1.2) X10*3/uL Eos # (Auto) 0.2 (0.0-0.4) X10*3/uL Baso # (Auto) 0.1 (0.0-0.2) X10*3/uL Abs Immat Gran (auto) 0.02 (0.00-0.03) X10*3/uL Absolute Neuts (auto) 4.7 (2.0-8.3) X10*3/uL Absolute Nucleated RBC 0.000 (0.0-0.012) X10*3/uL Nucleated RBC % (auto) 0.0 (0.0-0.2) /100WBC PT (9.9-13.0) SEC INR (0.9-1.1) APTT (24.1-38.0) SEC Sodium (135-145) mmol/L Potassium (3.3-5.1) mmol/L Chloride (96-108) mmol/L Carbon Dioxide (22-29) mmol/L Anion Gap (12-20) BUN (9-16) mg/dL Creatinine (0.5-1.4) mg/dL Estim Creat Clear Calc Estimated GFR Random Glucose (60-115) mg/dL Calcium (8.4-10.2) mg/dL Total Bilirubin (0.0-1.0) mg/dL Direct Bilirubin (0.0-0.5) mg/dL AST (5-31) U/L ALT (0-31) U/L Alkaline Phosphatase (39-117) U/L Troponin I High Sens < 3.5 (<3.5-17.0) ng/L B-Natriuretic Peptide 34 (<100) pg/mL Total Protein (6.5-8.0) g/dL Albumin (3.5-5.0) g/dL Lipase (8-78) U/L Urine Color Urine Appearance Urine pH (5.0-8.0) Ur Specific [place] (1.005-1.025) Urine Protein (NEG-TRACE) MG/DL Urine Glucose (UA) (NEG) MG/DL Urine Ketones (NEG) MG/DL Urine Blood (NEG) Urine Nitrite (NEG) Ur Leukocyte Esterase (NEG) Urine RBC (0) /HPF Urine WBC (0-4) /HPF Ur Squamous Epith Cells /LPF Urine Bacteria /LPF 03/25/21 Range/Units 13:48 WBC (4.8-10.8) X10*3/uL RBC (4.20-5.50) X10*6/uL Hgb (12.0-16.0) g/dl Hct (37-47) % MCV (80-98) fL MCH (27.0-33.0) pg MCHC (31.0-35.0) g/dl RDW (11.0-16.0) % Plt Count (160-400) X10*3/uL MPV (9.4-12.3) fL Immature Gran % (Auto) (0.0-0.4) % Neut % (Auto) (45-73) % Lymph % (Auto) (20-40) % Kleberg % (Auto) (2-11) % Eos % (Auto) (0-4) % Baso % (Auto) (0-2) % Lymph # (Auto) (1.2-4.9) X10*3/uL Kleberg # (Auto) (0.1-1.2) X10*3/uL Eos # (Auto) (0.0-0.4) X10*3/uL Baso # (Auto) (0.0-0.2) X10*3/uL Abs Immat Gran (auto) (0.00-0.03) X10*3/uL Absolute Neuts (auto) (2.0-8.3) X10*3/uL Absolute Nucleated RBC (0.0-0.012) X10*3/uL Nucleated RBC % (auto) (0.0-0.2) /100WBC PT (9.9-13.0) SEC INR (0.9-1.1) APTT (24.1-38.0) SEC Sodium (135-145) mmol/L Potassium (3.3-5.1) mmol/L Chloride (96-108) mmol/L Carbon Dioxide (22-29) mmol/L Anion Gap (12-20) BUN (9-16) mg/dL Creatinine (0.5-1.4) mg/dL Estim Creat Clear Calc Estimated GFR Random Glucose (60-115) mg/dL Calcium (8.4-10.2) mg/dL Total Bilirubin (0.0-1.0) mg/dL Direct Bilirubin (0.0-0.5) mg/dL AST (5-31) U/L ALT (0-31) U/L Alkaline Phosphatase (39-117) U/L Troponin I High Sens (<3.5-17.0) ng/L B-Natriuretic Peptide (<100) pg/mL Total Protein (6.5-8.0) g/dL Albumin (3.5-5.0) g/dL Lipase (8-78) U/L Urine Color YELLOW Urine Appearance CLEAR Urine pH 6.0 (5.0-8.0) Ur Specific [place] 1.010 (1.005-1.025) Urine Protein NEG (NEG-TRACE) MG/DL Urine Glucose (UA) >=1000 H (NEG) MG/DL Urine Ketones NEG (NEG) MG/DL Urine Blood NEG (NEG) Urine Nitrite NEG (NEG) Ur Leukocyte Esterase NEG (NEG) Urine RBC 0 (0) /HPF Urine WBC 1-4 (0-4) /HPF Ur Squamous Epith Cells 3+ /LPF Urine Bacteria TRACE /LPF ECG Data Interpretation: Normal sinus rhythm. Normal EKG. Ventricular rate 81. Pr interval 154. QRS duration 92. QTC 415. Negative STEMI Discharge Plan Discharge Clinical Impression: Chest pain due to GERD, Constipation Patient Disposition: Home, Self-Care Instructions: Chest Pain (ED), Constipation (ED), Gastroesophageal Reflux Disease (ED) Additional Instructions: Stubbs an?lisis de melissa y stubbs electrocardiograma resultaron negativos para un ataque card?aco. La radiograf?a de t?rax result? negativa para cualquier infecci?n. Stubbs tomograf?a computarizada abdominal result? normal, marlin muestra estre?imiento. La orina result? negativa para UTI. Regrese al servicio de urgencias de inmediato si tiene hinchaz?n de las extremidades inferiores, dolor en la pantorrilla, tos con melissa, fiebre, escalofr?os, dolor en el pecho, dificultad para respirar, dolor abdominal o cualquier otro s?ntoma que le preocupe. Prescriptions: New sennosides [Natural Senna Laxative] 8.6 mg tablet 8.6 mg PO DAILY Qty: 10 RF: 0 No Action sennosides-docusate sodium [Senna with Docusate Sodium] 8.6-50 mg tablet 2 tab-cap PO BID 30 Days Qty: 120 RF: 3 doxycycline monohydrate 100 mg capsule 100 mg PO BID 10 Days Qty: 20 RF: 0 cephalexin [Keflex] 500 mg capsule 500 mg PO TID 7 Days Qty: 21 RF: 0 lidocaine 4 % adhesive patch,medicated 1 patch topical Q24H PRN (Reason: pain) 10 Days RF: 0 cyclobenzaprine 5 mg tablet 5 mg PO TID PRN (Reason: muscle spasm) Qty: 14 RF: 0 naproxen 500 mg tablet 500 mg PO BID PRN (Reason: pain) Qty: 14 RF: 0 ondansetron HCl [Zofran] 4 mg tablet 4 mg PO Q8H PRN (Reason: nausea and vomiting) Qty: 14 RF: 0 lidocaine 4 % adhesive patch,medicated 1 patch topical DAILY PRN (Reason: pain) Qty: 10 RF: 0 Clotrimazole 3 Day 2 % cream 1 appful vaginal BEDTIME 3 Days Qty: 21 RF: 0 clotrimazole 1 % cream 1 appl topical BID PRN (Reason: Apply to vaginal rash, external use) Qty: 15 RF: 0 hydrocodone-homatropine 5-1.5 mg/5 mL (5 mL) syrup 5 ml PO Q6H PRN (Reason: cough) Qty: 60 RF: 0 doxycycline hyclate 100 mg capsule 100 mg PO BID Qty: 20 RF: 0 Lantus Solostar U-100 Insulin 100 unit/mL (3 mL) insulin pen 28 unit subcut BEDTIME 30 Days Qty: 15 RF: 1 insulin lispro [Humalog KwikPen Insulin] 100 unit/mL insulin pen See Rx Instructions subcut .COMPLEX Qty: 15 RF: 1 Invokana 300 mg tablet 300 mg PO QAM Qty: 30 RF: 4 ezetimibe 10 mg tablet 10 mg PO DAILY Qty: 30 RF: 5 atorvastatin 80 mg tablet 80 mg PO DAILY RF: 0 duloxetine 60 mg capsule,delayed release(DR/EC) 60 mg PO DAILY RF: 0 sucralfate [Carafate] 100 mg/mL suspension 10 ml PO BID RF: 0 ibuprofen 600 mg tablet 600 mg PO Q8H PRNRF: 0 acetaminophen [Mapap (acetaminophen)] 500 mg capsule 500 mg PO Q6H PRNRF: 0 levetiracetam 1,000 mg tablet 1,500 mg PO Q12H RF: 0 lisinopril 2.5 mg tablet 2.5 mg PO DAILY RF: 0 fluticasone propionate [Allergy Relief (fluticasone)] 50 mcg/actuation spray,suspension 1 spray intranasal DAILY RF: 0 meclizine 25 mg tablet 25 mg PO DAILY PRN (Reason: dizziness) RF: 0 omeprazole 40 mg capsule,delayed release(DR/EC) 40 mg PO BID 30 Days Qty: 60 RF: 4 Referrals: Rachael Brown MD [Primary Care Provider] - 2 days (Chest pain due to GERD. Constipation) Interventions: ED Discharge Assessment Last Done: 03/25/21 17:57 Discharge Date/Time: 03/25/21 18:19 Print Language: Yi
[2021-03-25] MEDS: PHENobarb/Hyoscy/Atropine/Scop 10 ML ELIXIR PO (10:39)
[2021-03-25] MEDS: Magnesium Hydrox/Alum Hydrox 30 ML ORAL.SUSP PO (10:39)
[2021-03-25] MEDS: ondansetron HCL 4 MG/2 ML VIAL IVPUSH (10:39)
[2021-03-25] MEDS: 0.9 % Sodium Chloride 1,000 ML 999 ML IV (10:39)
[2021-03-25] MEDS: Lidocaine HCl Viscous 2 % 15 ML SOLUTION MUCOUS MEM (10:39)
[2021-03-25] MEDS: Ketorolac Tromethamine 15 MG/ML VIAL 30 MG IVPUSH (10:39)
[2021-03-25 10:43] LABS: Basophils Absolute Auto 0.1 X10*3/uL (0.0-0.2); Basophils Percent Auto 0.7 % (0-2); Eosinophils Absolute Auto 0.2 X10*3/uL (0.0-0.4); Eosinophils Percent Auto 2.8 % (0-4); Hematocrit 39.6 % (37-47); Hemoglobin 12.9 g/dl (12.0-16.0); Imm Gran Abs Auto 0.02 X10*3/uL (0.00-0.03); Imm Gran Pct Auto 0.3 % (0.0-0.4); Lymphocytes Absolute Auto 2.2 X10*3/uL (1.2-4.9); Lymphocytes Percent Auto 28.8 % (20-40); MANUAL DIFF FLAG NO; Mean Corpuscular HGB Conc 32.6 g/dl (31.0-35.0); Mean Platelet Volume 9.7 fL (9.4-12.3); Monocytes Absolute Auto 0.4 X10*3/uL (0.1-1.2); Monocytes Percent Auto 5.3 % (2-11); Neutrophils Absolute Auto 4.7 X10*3/uL (2.0-8.3); Neutrophils Percent Auto 62.1 % (45-73); Platelet Count 266 X10*3/uL (160-400); Red Blood Count 4.45 X10*6/uL (4.20-5.50); Red Cell Distribution Width 12.2 % (11.0-16.0); White Blood Count 7.5 X10*3/uL (4.8-10.8)
[2021-03-25 10:50] LABS: Prothrombin Time 11.2 SEC (9.9-13.0)
[2021-03-25 10:53] LABS: Partial Thromboplastin Time 27.8 SEC (24.1-38.0)
[2021-03-25 10:54] LABS: Alanine Aminotransferase 10 U/L (0-31); Albumin Level 3.6 g/dL (3.5-5.0); Alkaline Phosphatase 121 U/L (39-117); Anion Gap 11 (12-20); Aspartate Amino Transferase 11 U/L (5-31); Bilirubin Direct 0.2 mg/dL (0.0-0.5); Bilirubin Total 0.8 mg/dL (0.0-1.0); Blood Urea Nitrogen 18 mg/dL (9-16); Calcium 9.5 mg/dL (8.4-10.2); Carbon Dioxide 29 mmol/L (22-29); Chloride 102 mmol/L (96-108); Creatinine Clr Calc Pharmacy 72.4; Estimated Glomerular Filt Rate > 60; Glucose Random 230 mg/dL (60-115); Lipase 29 U/L (8-78); Potassium 4.1 mmol/L (3.3-5.1); Sodium 138 mmol/L (135-145); Total Protein 6.7 g/dL (6.5-8.0)
[2021-03-25 10:58] LABS: Troponin-I High Sensitivity < 3.5 ng/L (<3.5-17.0)
[2021-03-25 11:07] LABS: B Type Natriuretic Peptide 34 pg/mL (<100)
[2021-03-25 12:23] VITALS: BP 116/66; PULSE 75; RESP 20; O2SAT 95
[2021-03-25 13:54] LABS: Appearance Urine CLEAR; Color Urine YELLOW; Glucose Urine UA >=1000 MG/DL (NEG); Leukocyte Esterase Urine NEG (NEG); Nitrite Urine NEG (NEG); Urine Blood NEG (NEG); Urine Ketones NEG (NEG); Urine Protein NEG (NEG-TRACE)
[2021-03-25 14:00] VITALS: BP 155/41; PULSE 66; RESP 18; TEMP 36.9; O2SAT 98
[2021-03-25 14:10] LABS: Bacteria Urine TRACE /LPF; RBC Urine 0 /HPF (0); Squamous Epithelial Cell Urine 3+ /LPF
[2021-03-25 14:17] LABS: Troponin-I High Sensitivity < 3.5 ng/L (<3.5-17.0)
[2021-03-25] MEDS: iohexoL 350 MG/ML 100 ML INFUS..BTL IV (15:17)
[2021-03-25 15:41] VITALS: BP 115/68; PULSE 73; RESP 12; TEMP 36.5; O2SAT 97
[2021-03-25 16:00] VITALS: BP 115/68; PULSE 76; RESP 18; TEMP 36.8; O2SAT 98
== END 2021-03-25 18:19 | disposition home or self-care (01) ==
PROVIDERS: Physician Assistant; Emergency Provider Emergency Medicine; PCP Internal Medicine
DX: R07.9 Chest pain, unspecified (principal); K21.9 Gastro-esophageal reflux disease without esophagitis; R06.02 Shortness of breath; K59.00 Constipation, unspecified; Z79.899 Other long term (current) drug therapy
CPT/HCPCS: 36415; 71045; 74177; 80053; 81001; 82248; 83690; 83880; 84484; 85025; 85610; 85730; 93005; 96361; 96374; 96375; 99285; J1885; J2405; Q9967

== ENCOUNTER 2021-04-07 08:13 | Emergency (ER) | payer MEDICAID, SELFPAY ==
[2021-04-07 08:57] VITALS: BP 123/80; PULSE 90; RESP 18; TEMP 36.9; O2SAT 95; BMI 29.2
--- NOTE | 2021-04-07 08:57 | ED_ITS ---
HPI - Skin/Abscess/Foreign Bdy General Chief complaint: Skin/Abscess/Foreign Body Stated complaint: back pain, rash Time Seen by Provider: 04/07/21 08:57 Source: patient Mode of arrival: ambulatory Limitations: language barrier History of Present Illness HPI narrative: 55 y/o female with history of DM, HTN, gastroparesis, GERD, who presents to the ER with painful bumps under her left underarm for the last 3 days. She reports a history of cysts that have required drainage in the past. She denies fever or chills. She has been using warm compresses with no improvement. MD complaint: abscess/boil Onset (ago): day(s) Tetanus up to date: yes Location: LUE Severity: moderate Quality: aching Pain Consistency: constant Exacerbating factors: palpation Context: none Associated symptoms: denies other symptoms Treatments prior to arrival: attempted to drain pus at home Related Data Home Medications Medication Instructions Recorded Confirmed acetaminophen 500 mg capsule 500 mg PO Q6H PRN 05/22/20 02/12/21 (Mapap (acetaminophen)) atorvastatin 80 mg tablet 80 mg PO DAILY 05/22/20 02/12/21 duloxetine 60 mg capsule,delayed 60 mg PO DAILY 05/22/20 02/12/21 release fluticasone propionate 50 1 spray INTRANASAL DAILY 05/22/20 02/12/21 mcg/actuation nasal spray,suspension (Allergy Relief (fluticasone)) ibuprofen 600 mg tablet 600 mg PO Q8H PRN 05/22/20 02/12/21 levetiracetam 1,000 mg tablet 1,500 mg PO Q12H 05/22/20 02/12/21 lisinopril 2.5 mg tablet 2.5 mg PO DAILY 05/22/20 02/12/21 meclizine 25 mg tablet 25 mg PO DAILY PRN 05/22/20 02/12/21 sucralfate 100 mg/mL oral 10 ml PO BID 05/22/20 02/12/21 suspension (Carafate) Previous Rx's Medication Instructions Recorded ondansetron HCl 4 mg tablet 4 mg PO Q8H PRN #14 tab 04/18/20 (Zofran) omeprazole 40 mg capsule,delayed 40 mg PO BID 30 Days #60 cap 05/22/20 release cephalexin 500 mg capsule (Keflex) 500 mg PO TID 7 Days #21 cap 06/17/20 doxycycline monohydrate 100 mg 100 mg PO BID 10 Days #20 cap 06/17/20 capsule cyclobenzaprine 5 mg tablet 5 mg PO TID PRN #14 tab 07/21/20 lidocaine 4 % topical patch 1 patch TOPICAL Q24H PRN 10 Days 07/21/20 ea naproxen 500 mg tablet 500 mg PO BID PRN #14 tab 07/21/20 sennosides 8.6 mg-docusate sodium 2 tab-cap PO BID 30 Days #120 tab 10/06/20 50 mg tablet (Senna with Docusate Sodium) lidocaine 4 % topical patch 1 patch TOPICAL DAILY PRN #10 ea 11/04/20 clotrimazole 1 % topical cream 1 appl TOPICAL BID PRN #15 g 12/09/20 clotrimazole 2 % vaginal cream 1 appful VAGINAL BEDTIME 3 Days 12/09/20 (Clotrimazole 3 Day) #21 g canagliflozin 300 mg tablet 300 mg PO QAM #30 tab 02/12/21 (Invokana) ezetimibe 10 mg tablet 10 mg PO DAILY #30 tab 02/12/21 insulin glargine 100 unit/mL (3 28 unit SUBCUT BEDTIME 30 Days #15 02/12/21 mL) subcutaneous pen (Lantus ml Solostar U-100 Insulin) insulin lispro 100 unit/mL See Rx Instructions SUBCUT 02/12/21 subcutaneous pen (Humalog KwikPen .COMPLEX #15 ml (U-100) Insulin) hydrocodone-homatropine 5 mg-1.5 5 ml PO Q6H PRN #60 ml 02/20/21 mg/5 mL (5 mL) oral syrup doxycycline hyclate 100 mg capsule 100 mg PO BID #20 cap 02/26/21 sennosides 8.6 mg tablet (Natural 8.6 mg PO DAILY #10 tab 03/25/21 Senna Laxative) cephalexin 500 mg capsule 500 mg PO Q6H 7 Days #28 cap 04/07/21 Allergies Allergy/AdvReac Type Severity Reaction Status Date / Time No Known Allergies Allergy Mild N/A Verified 04/07/21 08:59 Review of Systems Review of Systems: Constitutional: No Fever, No Chills Cardiovascular: No Chest Pain, No SOB Respiratory: No Cough, No Sputum Gastrointestinal: No Nausea, No Vomiting Musculoskeletal: No joint pain, No Myalgias Skin: + Skin Lesions, No rash Neuro: No Weakness, No Numbness, No Dizziness, No Headache Heme/Lymph: No Bruising, No Lymphadenopathy PMFSH Past Medical History Medical History Asthma Depression Diabetes Diabetic retinopathy Epilepsy Essential hypertension Hyperlipidemia Hyperlipidemia LDL goal <100 Hypertension Type 2 diabetes mellitus with hyperglycemia, with long-term current use of insulin Surgical History H/O section H/O esophagogastroduodenoscopy (03/14/18) History of ankle surgery Hx of colonoscopy (~06/2018) Family History Family History Mother Diabetes Father Diabetes Social History Social History Household Members: Spouse and Children Alcohol intake: never Patient Tobacco Use Status: Never used Tobacco Advance Directives: No Advance Directives Information Provided: No Patient : No Physical Exam Vital Signs: Vital Signs: Last Vital Signs Temp 98.5 F 04/07/21 08:57 Pulse 90 04/07/21 08:57 Resp 18 04/07/21 08:57 BP 123/80 04/07/21 08:57 Pulse Ox 95 04/07/21 08:57 Body Mass Index 29.2 Appearance: Alert. Oriented X3. No acute distress. HEENT: normal inspection CVS: Normal heart rate and rhythm. Pulses normal. Respiratory: No respiratory distress. Skin: Skin warm and dry. Normal skin color. Normal skin turgor. No rashes. Extremities: left axillary area with 5 small erythematous, tender lesions, indurated without fluctuance, one lesion with central pustule. minimal surrounding erythema. no LAD Neuro: Oriented X 3. Nonfocal. ambulates with steady gait Course Course Course Narrative: 55 y/o female with hx DM presenting with multiple small left axillary abscess, only one amenable to drainage at this time. Will start on PO keflex and continue local care with warm compresses. Encouraged to f/u with PCP this week. Stable for d/c home. Procedures Abscess I/D Site: upper extremity Side (if applicable): left Technique: needle aspiration Sent for culture/gram staining?: No Irrigation: Yes Packing used?: none Complications: bleeding (scant) Critical Care Time Critical Care Time Critical Care Time: No Discharge Plan Discharge Clinical Impression: Abscess of skin or subcutaneous tissue Qualifiers: Site of cutaneous abscess: extremity Site of cutaneous abscess of extremity: axilla Laterality: left Qualified Code(s): L02.412 - Cutaneous abscess of left axilla Patient Disposition: Home, Self-Care Instructions: Abscess (ED) Additional Instructions: Use warm compresses to your left underarm several times per day. Take the prescribed antibiotic as directed. Follow up with your doctor. If you develop new or worsening symptoms call 911 or come back to the ER for further evaluation. Use compresas tibias en la axila izquierda varias veces al d?a. [place] el antibi?nargis recetado seg?n las indicaciones. Shabana un seguimiento con jesus m?dico. Si presenta s?ntomas nuevos o que empeoran, llame al 911 o regrese a la afshan de emergencias para elvira evaluaci?n adicional. Prescriptions: New cephalexin 500 mg capsule 500 mg PO Q6H 7 Days Qty: 28 RF: 0 No Action sennosides-docusate sodium [Senna with Docusate Sodium] 8.6-50 mg tablet 2 tab-cap PO BID 30 Days Qty: 120 RF: 3 doxycycline monohydrate 100 mg capsule 100 mg PO BID 10 Days Qty: 20 RF: 0 cephalexin [Keflex] 500 mg capsule 500 mg PO TID 7 Days Qty: 21 RF: 0 lidocaine 4 % adhesive patch,medicated 1 patch topical Q24H PRN (Reason: pain) 10 Days RF: 0 cyclobenzaprine 5 mg tablet 5 mg PO TID PRN (Reason: muscle spasm) Qty: 14 RF: 0 naproxen 500 mg tablet 500 mg PO BID PRN (Reason: pain) Qty: 14 RF: 0 sennosides [Natural Senna Laxative] 8.6 mg tablet 8.6 mg PO DAILY Qty: 10 RF: 0 ondansetron HCl [Zofran] 4 mg tablet 4 mg PO Q8H PRN (Reason: nausea and vomiting) Qty: 14 RF: 0 lidocaine 4 % adhesive patch,medicated 1 patch topical DAILY PRN (Reason: pain) Qty: 10 RF: 0 Clotrimazole 3 Day 2 % cream 1 appful vaginal BEDTIME 3 Days Qty: 21 RF: 0 clotrimazole 1 % cream 1 appl topical BID PRN (Reason: Apply to vaginal rash, external use) Qty: 15 RF: 0 hydrocodone-homatropine 5-1.5 mg/5 mL (5 mL) syrup 5 ml PO Q6H PRN (Reason: cough) Qty: 60 RF: 0 doxycycline hyclate 100 mg capsule 100 mg PO BID Qty: 20 RF: 0 Lantus Solostar U-100 Insulin 100 unit/mL (3 mL) insulin pen 28 unit subcut BEDTIME 30 Days Qty: 15 RF: 1 insulin lispro [Humalog KwikPen Insulin] 100 unit/mL insulin pen See Rx Instructions subcut .COMPLEX Qty: 15 RF: 1 Invokana 300 mg tablet 300 mg PO QAM Qty: 30 RF: 4 ezetimibe 10 mg tablet 10 mg PO DAILY Qty: 30 RF: 5 atorvastatin 80 mg tablet 80 mg PO DAILY RF: 0 duloxetine 60 mg capsule,delayed release(DR/EC) 60 mg PO DAILY RF: 0 sucralfate [Carafate] 100 mg/mL suspension 10 ml PO BID RF: 0 ibuprofen 600 mg tablet 600 mg PO Q8H PRNRF: 0 acetaminophen [Mapap (acetaminophen)] 500 mg capsule 500 mg PO Q6H PRNRF: 0 levetiracetam 1,000 mg tablet 1,500 mg PO Q12H RF: 0 lisinopril 2.5 mg tablet 2.5 mg PO DAILY RF: 0 fluticasone propionate [Allergy Relief (fluticasone)] 50 mcg/actuation spray,suspension 1 spray intranasal DAILY RF: 0 meclizine 25 mg tablet 25 mg PO DAILY PRN (Reason: dizziness) RF: 0 omeprazole 40 mg capsule,delayed release(DR/EC) 40 mg PO BID 30 Days Qty: 60 RF: 4 Referrals: Rachael Brown MD [Primary Care Provider] - 2 days Print Language: Arabic
== END 2021-04-07 09:35 | disposition home or self-care (01) ==
PROVIDERS: Emergency Provider Emergency Medicine; PCP Internal Medicine
DX: L02.412 Cutaneous abscess of left axilla (principal); I10 Essential (primary) hypertension; E11.9 Type 2 diabetes mellitus without complications; Z79.899 Other long term (current) drug therapy
CPT/HCPCS: 10060; 99283

== ENCOUNTER → 2021-04-21 08:15 | Outpatient (BNVA) | payer MEDICAID, SELFPAY | PROVIDERS: PCP Internal Medicine; Referring Provider Internal Medicine; Visit Provider Nurse Practitioner Family | DX: K59.09 Other constipation (principal); K21.9 Gastro-esophageal reflux disease without esophagitis; R14.0 Abdominal distension (gaseous) | CPT/HCPCS: 99202 ==

== ENCOUNTER 2021-05-11 09:12 | Emergency (ER) | payer MEDICAID, SELFPAY ==
--- NOTE | ~2021-05-11 | XR_ITS ---
EXAMINATION: XR CHEST CLINICAL INFORMATION: Cough COMPARISON: 03/25/2021 TECHNIQUE: Frontal view of the chest was obtained. FINDINGS: The lungs are well expanded. There is no focal consolidation, edema, or effusion. No pneumothorax. The cardiomediastinal silhouette is within normal limits. No acute osseous abnormality. XR/XR chest 1V IMPRESSION: Clear lungs.
[2021-05-11 10:05] VITALS: BP 125/58; PULSE 90; RESP 18; TEMP 36.7; O2SAT 100; BMI 29.2
--- NOTE | 2021-05-11 10:24 | ED.URI ---
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 Mode of arrival: ambulatory Limitations: no limitations History of Present Illness MD elicited complaint: cough Pertinent past history: seasonal allergies Onset (ago): day(s) (4) Consistency: constant Severity: mild Description of mucous: clear Able to tolerate fluids by mouth: Yes Exacerbating factors: swallowing Relieving factors: nothing Context: other (has post nasal drip, she is vaccinated) Associated symptoms: denies other symptoms Treatments prior to arrival: none Related Data Home Medications Medication Instructions Recorded Confirmed acetaminophen 500 mg capsule 500 mg PO Q6H PRN 05/22/20 02/12/21 (Mapap (acetaminophen)) atorvastatin 80 mg tablet 80 mg PO DAILY 05/22/20 02/12/21 duloxetine 60 mg capsule,delayed 60 mg PO DAILY 05/22/20 02/12/21 release fluticasone propionate 50 1 spray INTRANASAL DAILY 05/22/20 02/12/21 mcg/actuation nasal spray,suspension (Allergy Relief (fluticasone)) ibuprofen 600 mg tablet 600 mg PO Q8H PRN 05/22/20 02/12/21 levetiracetam 1,000 mg tablet 1,500 mg PO Q12H 05/22/20 02/12/21 lisinopril 2.5 mg tablet 2.5 mg PO DAILY 05/22/20 02/12/21 meclizine 25 mg tablet 25 mg PO DAILY PRN 05/22/20 02/12/21 sucralfate 100 mg/mL oral 10 ml PO BID 05/22/20 02/12/21 suspension (Carafate) sitagliptin 100 mg tablet (Januvia) 100 mg PO DAILY 04/21/21 Previous Rx's Medication Instructions Recorded ondansetron HCl 4 mg tablet 4 mg PO Q8H PRN #14 tab 04/18/20 (Zofran) omeprazole 40 mg capsule,delayed 40 mg PO BID 30 Days #60 cap 05/22/20 release cephalexin 500 mg capsule (Keflex) 500 mg PO TID 7 Days #21 cap 06/17/20 doxycycline monohydrate 100 mg 100 mg PO BID 10 Days #20 cap 06/17/20 capsule cyclobenzaprine 5 mg tablet 5 mg PO TID PRN #14 tab 07/21/20 lidocaine 4 % topical patch 1 patch TOPICAL Q24H PRN 10 Days 07/21/20 ea naproxen 500 mg tablet 500 mg PO BID PRN #14 tab 07/21/20 sennosides 8.6 mg-docusate sodium 2 tab-cap PO BID 30 Days #120 tab 10/06/20 50 mg tablet (Senna with Docusate Sodium) lidocaine 4 % topical patch 1 patch TOPICAL DAILY PRN #10 ea 11/04/20 clotrimazole 1 % topical cream 1 appl TOPICAL BID PRN #15 g 12/09/20 clotrimazole 2 % vaginal cream 1 appful VAGINAL BEDTIME 3 Days 12/09/20 (Clotrimazole 3 Day) #21 g canagliflozin 300 mg tablet 300 mg PO QAM #30 tab 02/12/21 (Invokana) ezetimibe 10 mg tablet 10 mg PO DAILY #30 tab 02/12/21 insulin glargine 100 unit/mL (3 28 unit SUBCUT BEDTIME 30 Days #15 02/12/21 mL) subcutaneous pen (Lantus ml Solostar U-100 Insulin) insulin lispro 100 unit/mL See Rx Instructions SUBCUT 02/12/21 subcutaneous pen (Humalog KwikPen .COMPLEX #15 ml (U-100) Insulin) hydrocodone-homatropine 5 mg-1.5 5 ml PO Q6H PRN #60 ml 02/20/21 mg/5 mL (5 mL) oral syrup doxycycline hyclate 100 mg capsule 100 mg PO BID #20 cap 02/26/21 sennosides 8.6 mg tablet (Natural 8.6 mg PO DAILY #10 tab 03/25/21 Senna Laxative) cephalexin 500 mg capsule 500 mg PO Q6H 7 Days #28 cap 04/07/21 linaclotide 145 mcg capsule 145 mcg PO DAILY #30 cap 04/21/21 (Linzess) benzonatate 100 mg capsule 100 mg PO TID PRN #20 cap 05/11/21 (Tessalon Perles) Allergies Allergy/AdvReac Type Severity Reaction Status Date / Time No Known Allergies Allergy Mild N/A Verified 04/21/21 09:09 Review of Systems Review of Systems: Constitutional : No Fever, No Chills ENT/Mouth : No Hoarseness, No sore throat, No Rhinorrhea Eyes: No Redness, No Discharge, No Vision Changes Cardiovascular : No Chest Pain, no SOB, no Dyspnea on Exertion, No Edema Respiratory : positive Cough, No Sputum, no Wheezing, Gastrointestinal : No Nausea, No Vomiting, No Diarrhea, No abdominal Pain Genitourinary : No Dysuria, No Hematuria Musculoskeletal : No joint pain, No Myalgias Skin : No rash Neuro : No Weakness, No Numbness, No Headache Psych : No anxiety, depression [facility] Past Medical History Medical History (Updated 05/11/21 @ 11:07 by Karrie Chavez DO) Asthma Depression Diabetes Diabetic retinopathy Epilepsy Essential hypertension Gastroparesis Hyperlipidemia Hyperlipidemia LDL goal <100 Hypertension Type 2 diabetes mellitus with hyperglycemia, with long-term current use of insulin Surgical History H/O section H/O esophagogastroduodenoscopy (03/14/18) History of ankle surgery Hx of colonoscopy (~06/2018) Family History Family History Mother Diabetes Father Diabetes Social History Social History Household Members: Spouse and Children Alcohol intake: never Patient Tobacco Use Status: Never used Tobacco Use of substances other than those prescribed or required for medical reasons: No Advance Directives: No Patient : No Physical Exam Vital Signs: Vital Signs: Last Vital Signs Temp 98.1 F 05/11/21 10:05 Pulse 90 05/11/21 10:05 Resp 18 05/11/21 10:05 BP 125/58 L 05/11/21 10:05 Pulse Ox 100 05/11/21 10:05 Body Mass Index 29.2 Appearance: Alert. Oriented X3. No acute distress. Eyes: Pupils equal, round and reactive to light. ENT: Pharynx normal. Neck: Normal inspection. Neck supple. CVS: Normal heart rate and rhythm. Pulses normal. Respiratory: No respiratory distress. Breath sounds normal. Abdomen: Soft and nontender. Skin: Skin warm and dry. Normal skin color. Extremities: No lower extremity edema. Neuro: Oriented X 3. No motor deficit. No sensory deficit. MDM - URI/Sore Throat MDM Narrative Medical decision making narrative: 56 yo female with HTN, GERD, HLD, DM here with 4 days of dry cough no fevers - will obtain COVID swab and CXR - not toxic, clear lungs no resp distress. I did not hear her cough during interview. Dispo per results and findings. Lab Data Labs: Lab Results 05/11/21 Range/Units 10:09 COVID-19 ([facility]) Negative (Negative) COVID-19 Clin Com See Note Discharge Plan Discharge Clinical Impression: Cough Patient Disposition: Home, Self-Care Instructions: Acute Cough (ED) Additional Instructions: return to ED for any worsening symptoms or concerns NEGATIVE FOR COVID NEGATIVE CHEST XRAY Prescriptions: New benzonatate [Tessalon Perles] 100 mg capsule 100 mg PO TID PRN (Reason: cough) Qty: 20 RF: 0 No Action sennosides-docusate sodium [Senna with Docusate Sodium] 8.6-50 mg tablet 2 tab-cap PO BID 30 Days Qty: 120 RF: 3 doxycycline monohydrate 100 mg capsule 100 mg PO BID 10 Days Qty: 20 RF: 0 cephalexin [Keflex] 500 mg capsule 500 mg PO TID 7 Days Qty: 21 RF: 0 lidocaine 4 % adhesive patch,medicated 1 patch topical Q24H PRN (Reason: pain) 10 Days RF: 0 cyclobenzaprine 5 mg tablet 5 mg PO TID PRN (Reason: muscle spasm) Qty: 14 RF: 0 naproxen 500 mg tablet 500 mg PO BID PRN (Reason: pain) Qty: 14 RF: 0 sennosides [Natural Senna Laxative] 8.6 mg tablet 8.6 mg PO DAILY Qty: 10 RF: 0 ondansetron HCl [Zofran] 4 mg tablet 4 mg PO Q8H PRN (Reason: nausea and vomiting) Qty: 14 RF: 0 lidocaine 4 % adhesive patch,medicated 1 patch topical DAILY PRN (Reason: pain) Qty: 10 RF: 0 Clotrimazole 3 Day 2 % cream 1 appful vaginal BEDTIME 3 Days Qty: 21 RF: 0 clotrimazole 1 % cream 1 appl topical BID PRN (Reason: Apply to vaginal rash, external use) Qty: 15 RF: 0 hydrocodone-homatropine 5-1.5 mg/5 mL (5 mL) syrup 5 ml PO Q6H PRN (Reason: cough) Qty: 60 RF: 0 doxycycline hyclate 100 mg capsule 100 mg PO BID Qty: 20 RF: 0 cephalexin 500 mg capsule 500 mg PO Q6H 7 Days Qty: 28 RF: 0 Lantus Solostar U-100 Insulin 100 unit/mL (3 mL) insulin pen 28 unit subcut BEDTIME 30 Days Qty: 15 RF: 1 insulin lispro [Humalog KwikPen Insulin] 100 unit/mL insulin pen See Rx Instructions subcut .COMPLEX Qty: 15 RF: 1 Invokana 300 mg tablet 300 mg PO QAM Qty: 30 RF: 4 ezetimibe 10 mg tablet 10 mg PO DAILY Qty: 30 RF: 5 atorvastatin 80 mg tablet 80 mg PO DAILY RF: 0 duloxetine 60 mg capsule,delayed release(DR/EC) 60 mg PO DAILY RF: 0 sucralfate [Carafate] 100 mg/mL suspension 10 ml PO BID RF: 0 ibuprofen 600 mg tablet 600 mg PO Q8H PRNRF: 0 acetaminophen [Mapap (acetaminophen)] 500 mg capsule 500 mg PO Q6H PRNRF: 0 levetiracetam 1,000 mg tablet 1,500 mg PO Q12H RF: 0 lisinopril 2.5 mg tablet 2.5 mg PO DAILY RF: 0 fluticasone propionate [Allergy Relief (fluticasone)] 50 mcg/actuation spray,suspension 1 spray intranasal DAILY RF: 0 meclizine 25 mg tablet 25 mg PO DAILY PRN (Reason: dizziness) RF: 0 omeprazole 40 mg capsule,delayed release(DR/EC) 40 mg PO BID 30 Days Qty: 60 RF: 4 Januvia 100 mg tablet 100 mg PO DAILY RF: 0 Linzess 145 mcg capsule 145 mcg PO DAILY Qty: 30 RF: 2 Referrals: Rachael Brown MD [Primary Care Provider] - 2 days (if not better) Interventions: ED Discharge Assessment Last Done: 05/11/21 11:29 Discharge Date/Time: 05/11/21 11:30 Print Language: Norwegian
[2021-05-11] MEDS: Benzonatate 100 MG CAPSULE PO (10:50)
[2021-05-11 11:03] LABS: COVID-19 Test Negative (Negative)
== END 2021-05-11 11:30 | disposition home or self-care (01) ==
PROVIDERS: Emergency Provider Emergency Medicine; PCP Internal Medicine
DX: R05.9 Cough, unspecified (principal); E11.9 Type 2 diabetes mellitus without complications; I10 Essential (primary) hypertension; J45.909 Unspecified asthma, uncomplicated; G40.909 Epilepsy, unspecified, not intractable, without status epilepticus; Z20.822 Contact with and (suspected) exposure to COVID-19
CPT/HCPCS: 36415; 71045; 87635; 99283; 99284

== ENCOUNTER 2021-05-27 14:00 | Outpatient (REF) | payer MEDICAID, SELFPAY ==
--- NOTE | ~2021-05-27 | US_ITS ---
EXAMINATION: US VENOUS ULTRASOUND WITH DOPPLER LOWER EXTREMITY, LEFT CLINICAL INFORMATION: Pain COMPARISON: None TECHNIQUE: Ultrasound of the deep veins is performed from the hip to the calf with compression sonography and color and pulse Doppler assessment. Spectral analysis with color-flow imaging is performed. FINDINGS: There is normal venous compression and respiratory variation and augmented flow. The visualized common femoral vein, superficial femoral vein, profunda femoral vein, popliteal vein, and the trifurcation region shows no evidence of deep venous thrombosis. There is no significant popliteal fossa cyst. If the patient's symptoms persist, followup ultrasound in 5 days 7 days might be of value to exclude proximal propagation from a non-visualized calf vein. US/US venous duplex LE LT IMPRESSION: No DVT demonstrated in the left lower extremity.
--- NOTE | ~2021-05-27 | XR_ITS ---
EXAMINATION: XR FEMUR, LEFT CLINICAL INFORMATION: Pain COMPARISON: None TECHNIQUE: AP and lateral views of the left femur were obtained. FINDINGS: No acute fracture or dislocation. Femoral head is spherical. Small acetabular marginal osteophytes. Imaged pelvic bones unremarkable. Small ossific structures adjacent to the medial femoral condyle may represent intra-articular loose body or calcification associated with the MCL. Small marginal osteophytes along the L2 vertebral compartment. Vascular calcifications. XR/XR femur LT 2V IMPRESSION: No acute findings. Mild degenerative changes as described. Vascular calcifications.
== END 2021-05-27 14:01 | disposition home or self-care (01) ==
LOC: HO.US 14:00
PROVIDERS: PCP Internal Medicine; Referring Provider Internal Medicine; Visit Provider Radiology Diagnostic Radiology
DX: M79.652 Pain in left thigh (principal)
CPT/HCPCS: 73552; 93971

== ENCOUNTER → 2021-06-24 08:18 | Outpatient (BNVA) | payer MEDICAID, SELFPAY | PROVIDERS: PCP Internal Medicine; Referring Provider Internal Medicine; Visit Provider Nurse Practitioner Family | DX: K59.09 Other constipation (principal); K21.9 Gastro-esophageal reflux disease without esophagitis; K58.2 Mixed irritable bowel syndrome | CPT/HCPCS: 99212 ==

== ENCOUNTER 2021-08-14 08:20 | Outpatient (RCR) | payer MEDICAID, SELFPAY ==
[2021-08-14 09:10] VITALS: BP 140/79; PULSE 91
== END 2021-08-28 09:47 | disposition home or self-care (01) ==
LOC: HO.PT 08:20
PROVIDERS: PCP Internal Medicine; Visit Provider Internal Medicine
DX: M17.12 Unilateral primary osteoarthritis, left knee (principal)
CPT/HCPCS: 97110; 97162

== ENCOUNTER 2021-08-31 08:19 | Emergency (ER) | payer MEDICAID, SELFPAY ==
--- NOTE | 2021-08-31 | ECG_ITS ---
Test Reason : ABDOMINAL PAIN Blood Pressure : / mmHG Vent. Rate : 104 BPM Atrial Rate : 104 BPM P-R Int : 158 ms QRS Dur : 078 ms QT Int : 336 ms P-R-T Axes : 023 005 042 degrees QTc Int : 441 ms Sinus tachycardia with occasional Premature ventricular complexes Cannot rule out Anterior infarct , age undetermined Abnormal ECG When compared with ECG of 25-MAR-2021 09:56, Premature ventricular complexes are now Present Referred By: Generic ED Physician Electronically Signed By:ANGELES BRAYN
--- NOTE | ~2021-08-31 | XR_ITS ---
EXAMINATION: XR ABDOMEN KUB CLINICAL INDICATION: Suspicious for small bowel obstruction COMPARISON: CT 03/25/2021 TECHNIQUE: AP view of the abdomen. FINDINGS: The bowel gas pattern is normal with no evidence of ileus or obstruction. No unusual soft tissue calcifications are noted. The bones are unremarkable. XR/XR KUB IMPRESSION: Unremarkable examination. No evidence of bowel obstruction.
[2021-08-31 08:49] VITALS: BP 139/83; PULSE 103; RESP 18; TEMP 36.6; O2SAT 99; BMI 29.2
[2021-08-31 09:10] LABS: MANUAL DIFF FLAG NO
[2021-08-31 09:11] LABS: Basophils Percent Auto 0.3 % (0-2); Eosinophils Absolute Auto 0.2 X10*3/uL (0.0-0.4); Eosinophils Percent Auto 1.8 % (0-4); Hematocrit 43.6 % (37.0-47.0); Hemoglobin 14.4 g/dl (12.0-16.0); Imm Gran Abs Auto 0.03 X10*3/uL (0.00-0.03); Imm Gran Pct Auto 0.3 % (0.0-0.4); Lymphocytes Absolute Auto 1.4 X10*3/uL (1.2-4.9); Lymphocytes Percent Auto 13.4 % (20-40); Mean Corpuscular Volume 87.7 fL (80.0-98.0); Mean Platelet Volume 10.2 fL (9.4-12.3); Monocytes Absolute Auto 0.4 X10*3/uL (0.1-1.2); Monocytes Percent Auto 4.3 % (2-11); Neutrophils Absolute Auto 8.2 x10*3/uL (2.0-8.3); Neutrophils Percent Auto 79.9 % (45-73); Platelet Count 279 X10*3/uL (160-400); Red Blood Count 4.97 X10*6/uL (4.20-5.50); Red Cell Distribution Width 12.3 % (11.0-16.0); White Blood Count 10.3 X10*3/uL (4.8-10.8)
[2021-08-31 09:29] LABS: Anion Gap 9 (12-20); Blood Urea Nitrogen 16 mg/dL (9-16); Calcium 10.1 mg/dL (8.4-10.2); Carbon Dioxide 34 mmol/L (22-29); Chloride 103 mmol/L (96-108); Estimated Glomerular Filt Rate > 60; Glucose Random 274 mg/dL (60-115); Potassium 4.4 mmol/L (3.3-5.1); Sodium 142 mmol/L (135-145)
--- NOTE | 2021-08-31 12:29 | ED.NAVMDI ---
HPI - Nausea/Vomiting/Diarrhea General Chief complaint: Abdominal Pain Stated complaint: stomach pain vomiting Time Seen by Provider: 08/31/21 10:20 Source: patient Mode of arrival: ambulatory Limitations: no limitations History of Present Illness HPI Narrative: Patient comes emergency room complaining of nausea , vomiting and diarrhea for 2 days. Patient complaining of burning left upper quadrant sensation. Patient states she has had in the last 24 hours approximately 5 episodes of vomiting and 5 of diarrhea. Patient denies fever chills, no URI or no UTI symptoms Related Data Home Medications Medication Instructions Recorded Confirmed acetaminophen 500 mg capsule 500 mg PO Q6H PRN 05/22/20 02/12/21 (Mapap (acetaminophen)) atorvastatin 80 mg tablet 80 mg PO DAILY 05/22/20 02/12/21 duloxetine 60 mg capsule,delayed 60 mg PO DAILY 05/22/20 02/12/21 release fluticasone propionate 50 1 spray INTRANASAL DAILY 05/22/20 02/12/21 mcg/actuation nasal spray,suspension (Allergy Relief (fluticasone)) ibuprofen 600 mg tablet 600 mg PO Q8H PRN 05/22/20 02/12/21 levetiracetam 1,000 mg tablet 1,500 mg PO Q12H 05/22/20 02/12/21 lisinopril 2.5 mg tablet 2.5 mg PO DAILY 05/22/20 02/12/21 meclizine 25 mg tablet 25 mg PO DAILY PRN 05/22/20 02/12/21 sitagliptin 100 mg tablet (Januvia) 100 mg PO DAILY 04/21/21 levetiracetam 750 mg tablet 1,500 mg PO BID 06/24/21 lidocaine 5 % topical patch 0 patch TOPICAL 06/24/21 Previous Rx's Medication Instructions Recorded omeprazole 40 mg capsule,delayed 40 mg PO BID 30 Days #60 cap 05/22/20 release cyclobenzaprine 5 mg tablet 5 mg PO TID PRN #14 tab 07/21/20 lidocaine 4 % topical patch 1 patch TOPICAL Q24H PRN 10 Days 07/21/20 ea lidocaine 4 % topical patch 1 patch TOPICAL DAILY PRN #10 ea 11/04/20 clotrimazole 1 % topical cream 1 appl TOPICAL BID PRN #15 g 12/09/20 clotrimazole 2 % vaginal cream 1 appful VAGINAL BEDTIME 3 Days 12/09/20 (Clotrimazole 3 Day) #21 g canagliflozin 300 mg tablet 300 mg PO QAM #30 tab 02/12/21 (Invokana) ezetimibe 10 mg tablet 10 mg PO DAILY #30 tab 02/12/21 insulin glargine 100 unit/mL (3 28 unit (0.28 mL) SUBCUT BEDTIME 02/12/21 mL) subcutaneous pen (Lantus 30 Days #15 ml Solostar U-100 Insulin) insulin lispro 100 unit/mL See Rx Instructions SUBCUT 02/12/21 subcutaneous pen (Humalog KwikPen .COMPLEX #15 ml (U-100) Insulin) linaclotide 145 mcg capsule 145 mcg PO DAILY #30 cap 04/21/21 (Linzess) benzonatate 100 mg capsule 100 mg PO TID PRN #20 cap 05/11/21 (Tessalon Perles) cholestyramine (with sugar) 4 gram 4 g PO BID #378 g 06/24/21 oral powder nut.tx.gluc.intol,lac-free,soy 1 ea PO .COMPLEX #237 ml 07/14/21 (Glucerna) ondansetron HCl 4 mg tablet 4 mg PO Q6H PRN #10 tab 08/31/21 Allergies Allergy/AdvReac Type Severity Reaction Status Date / Time No Known Allergies Allergy Mild N/A Verified 08/06/21 14:11 Review of Systems Review of Systems: Constitutional : No Weight loss, No Fever, No Chills, No Night Sweats, No Fatigue, No Malaise ENT/Mouth : No Hearing loss, No Ear Pain, No Nasal Congestion, No Sinus Pain, No Hoarseness, No sore throat, No Rhinorrhea, No Swallowing Difficulty Eyes: No Eye Pain, No Swelling, No Redness, No Foreign Body, No Discharge, No Vision Changes Cardiovascular : No Chest Pain, No SOB, No Dyspnea on Exertion, No Orthopnea, No Edema, No Palpitations Respiratory : No Cough, No Sputum, No Wheezing, No Smoke Exposure, No Dyspnea Gastrointestinal : Patient complaining of nausea, vomiting, diarrhea, left upper quadrant burning sensation Genitourinary : no irregular bleeding, No Dysuria, No Urinary Frequency, No Hematuria, No Urinary Incontinence, No Urgency, No Flank Pain, No Urinary Flow Changes, No Hesitancy Musculoskeletal : No joint pain, No Myalgias, No Joint Swelling Skin : No Skin Lesions, No rash Neuro : No Weakness, No Numbness, No Paresthesias, No Loss of Consciousness, No Dizziness, No Headache Psych : No Anxiety/Panic, No Depression, No SI/HI/AH/VH, No Social Issues, Heme/Lymph: No Bruising, No Bleeding,No Lymphadenopathy Endocrine : No Polyuria, No Polydipsia, No Temperature Intolerance PMFSH Past Medical History Medical History Asthma Depression Diabetes Diabetic retinopathy Epilepsy Essential hypertension Gastroparesis Hyperlipidemia Hyperlipidemia LDL goal <100 Hypertension Type 2 diabetes mellitus with hyperglycemia, with long-term current use of insulin Surgical History H/O section H/O esophagogastroduodenoscopy (03/14/18) History of ankle surgery Hx of colonoscopy (~06/2018) Family History Family History Mother Diabetes Father Diabetes Social History Social History (System 08/06/21 @ 14:11 by Ann Shah) Household Members: Spouse and Children Alcohol intake: never Patient Tobacco Use Status: Never used Tobacco Use of substances other than those prescribed or required for medical reasons: No Advance Directives: No Advance Directives Information Provided: No Patient : No Physical Exam Vital Signs: Vital Signs: Last Vital Signs Temp 99.0 F 08/31/21 13:56 Pulse 108 H 08/31/21 13:56 Resp 17 08/31/21 13:56 BP 146/86 H 08/31/21 13:56 Pulse Ox 97 08/31/21 13:56 BMI result Body Mass Index 29.2 Course Course Course Narrative: Patient will be given fluids, Zofran and loperamide. In the emergency room patient has not had any episodes vomiting and diarrhea. Patient's labs stable. COVID negative. MDM - Nausea/Vomiting/Diarrhea Lab Data Result diagrams: 08/31/21 09:00 08/31/21 09:00 Labs: Lab Results 08/31/21 08/31/21 08/31/21 Range/Units 09:00 09:00 14:59 WBC 10.3 (4.8-10.8) X10*3/uL RBC 4.97 (4.20-5.50) X10*6/uL Hgb 14.4 (12.0-16.0) g/dl Hct 43.6 (37.0-47.0) % MCV 87.7 (80.0-98.0) fL MCH 29.0 (27.0-33.0) pg MCHC 33.0 (31.0-35.0) g/dl RDW 12.3 (11.0-16.0) % Plt Count 279 (160-400) X10*3/uL MPV 10.2 (9.4-12.3) fL Immature Gran % (Auto) 0.3 (0.0-0.4) % Neut % (Auto) 79.9 H (45-73) % Lymph % (Auto) 13.4 L (20-40) % [place] % (Auto) 4.3 (2-11) % Eos % (Auto) 1.8 (0-4) % Baso % (Auto) 0.3 (0-2) % Lymph # (Auto) 1.4 (1.2-4.9) X10*3/uL [place] # (Auto) 0.4 (0.1-1.2) X10*3/uL Eos # (Auto) 0.2 (0.0-0.4) X10*3/uL Baso # (Auto) 0.0 (0.0-0.2) X10*3/uL Abs Immat Gran (auto) 0.03 (0.00-0.03) X10*3/uL Absolute Neuts (auto) 8.2 (2.0-8.3) x10*3/uL Absolute Nucleated RBC 0.000 (0.0-0.012) X10*3/uL Nucleated RBC % (auto) 0.0 (0.0-0.2) /100WBC Sodium 142 (135-145) mmol/L Potassium 4.4 (3.3-5.1) mmol/L Chloride 103 (96-108) mmol/L Carbon Dioxide 34 H (22-29) mmol/L Anion Gap 9 L (12-20) BUN 16 (9-16) mg/dL Creatinine 0.85 (0.5-1.4) mg/dL Estim Creat Clear Calc 67.0 Estimated GFR > 60 Random Glucose 274 H (60-115) mg/dL Calcium 10.1 D (8.4-10.2) mg/dL Total Bilirubin 0.7 (0.0-1.0) mg/dL Direct Bilirubin 0.2 (0.0-0.5) mg/dL AST 11 (5-31) U/L ALT 11 (0-31) U/L Alkaline Phosphatase 143 H (39-117) U/L Total Protein 7.7 (6.5-8.0) g/dL Albumin 4.0 (3.5-5.0) g/dL Lipase 23 (8-78) U/L COVID-19 ([facility]) Negative (Negative) COVID-19 Clin Com See Note Discharge Plan Discharge Clinical Impression: Nausea and vomiting Patient Disposition: Home, Self-Care Instructions: Acute Nausea and Vomiting (ED) Additional Instructions: Please follow-up with your primary care physician tomorrow. If you have any worsening or new symptoms, please return to the emergency room or call 911 Prescriptions: New ondansetron HCl 4 mg tablet 4 mg PO Q6H PRN (Reason: nausea and vomiting) Qty: 10 0RF No Action Glucerna Liquid 1 ea PO .COMPLEX Qty: 237 10RF Rx Instructions: 1 ea PO Twice daily; lidocaine 4 % adhesive patch,medicated 1 patch topical Q24H PRN (Reason: pain) 10 Days 0RF Rx Instructions: may leave on for up to 12 hrs cyclobenzaprine 5 mg tablet 5 mg PO TID PRN (Reason: muscle spasm) Qty: 14 0RF lidocaine 4 % adhesive patch,medicated 1 patch topical DAILY PRN (Reason: pain) Qty: 10 0RF Rx Instructions: may leave on for up to 12 hrs Clotrimazole 3 Day 2 % cream 1 appful vaginal BEDTIME 3 Days Qty: 21 0RF clotrimazole 1 % cream 1 appl topical BID PRN (Reason: Apply to vaginal rash, external use) Qty: 15 0RF benzonatate [Tessalon Perles] 100 mg capsule 100 mg PO TID PRN (Reason: cough) Qty: 20 0RF Lantus Solostar U-100 Insulin 100 unit/mL (3 mL) insulin pen 28 unit subcut BEDTIME 30 Days Qty: 15 1RF insulin lispro [Humalog KwikPen Insulin] 100 unit/mL insulin pen See Rx Instructions subcut .COMPLEX Qty: 15 1RF Rx Instructions: 4 units, plus 1 units for blood glucose >200, +2u for bg >300 subcut; Invokana 300 mg tablet 300 mg PO QAM Qty: 30 4RF ezetimibe 10 mg tablet 10 mg PO DAILY Qty: 30 5RF atorvastatin 80 mg tablet 80 mg PO DAILY 0RF duloxetine 60 mg capsule,delayed release(DR/EC) 60 mg PO DAILY 0RF ibuprofen 600 mg tablet 600 mg PO Q8H PRN0RF acetaminophen [Mapap (acetaminophen)] 500 mg capsule 500 mg PO Q6H PRN0RF levetiracetam 1,000 mg tablet 1,500 mg PO Q12H 0RF lisinopril 2.5 mg tablet 2.5 mg PO DAILY 0RF fluticasone propionate [Allergy Relief (fluticasone)] 50 mcg/actuation spray,suspension 1 spray intranasal DAILY 0RF Rx Instructions: administer into each nostril meclizine 25 mg tablet 25 mg PO DAILY PRN (Reason: dizziness) 0RF omeprazole 40 mg capsule,delayed release(DR/EC) 40 mg PO BID 30 Days Qty: 60 4RF Januvia 100 mg tablet 100 mg PO DAILY 0RF Linzess 145 mcg capsule 145 mcg PO DAILY Qty: 30 2RF lidocaine 5 % adhesive patch,medicated 0 patch topical 0RF levetiracetam 750 mg tablet 1,500 mg PO BID 0RF cholestyramine (with sugar) 4 gram powder 4 g PO BID Qty: 378 2RF Rx Instructions: administer w/meal; avoid other meds within 1hr before or 4-6hr after dose
[2021-08-31 12:37] LABS: Alanine Aminotransferase 11 U/L (0-31); Alkaline Phosphatase 143 U/L (39-117); Aspartate Amino Transferase 11 U/L (5-31); Bilirubin Direct 0.2 mg/dL (0.0-0.5); Bilirubin Total 0.7 mg/dL (0.0-1.0); Total Protein 7.7 g/dL (6.5-8.0)
[2021-08-31 12:50] LABS: Lipase 23 U/L (8-78)
[2021-08-31 13:56] VITALS: BP 146/86; PULSE 108; RESP 17; TEMP 37.2; O2SAT 97
[2021-08-31] MEDS: 0.9 % Sodium Chloride 1,000 ML 999 ML IVCONT (14:42)
[2021-08-31] MEDS: Loperamide HCl 2 MG CAPSULE 4 MG PO (14:55)
[2021-08-31] MEDS: Lidocaine HCl Viscous 2 % 15 ML SOLUTION MUCOUS MEM (14:56)
[2021-08-31] MEDS: ondansetron HCL 4 MG/2 ML VIAL IVPUSH (14:56)
[2021-08-31] MEDS: Magnesium Hydrox/Alum Hydrox 30 ML ORAL.SUSP PO (14:56)
[2021-08-31 15:21] LABS: COVID-19 Test Negative (Negative)
--- NOTE | 2021-08-31 16:37 | PC.NURSE ---
vs 153/91-110-95%-17
== END 2021-08-31 16:49 | disposition home or self-care (01) ==
PROVIDERS: Emergency Provider Emergency Medicine; PCP Internal Medicine
DX: R10.12 Left upper quadrant pain (principal); R11.2 Nausea with vomiting, unspecified; R19.7 Diarrhea, unspecified; Z20.822 Contact with and (suspected) exposure to COVID-19; Z79.899 Other long term (current) drug therapy
CPT/HCPCS: 36415; 74018; 80048; 80076; 83690; 85025; 87635; 93005; 96361; 96374; 99284; J2405

== ENCOUNTER 2021-09-18 15:13 | Emergency (ER) | payer MEDICAID, SELFPAY ==
[2021-09-18 15:37] VITALS: BP 131/71; PULSE 96; RESP 16; TEMP 36.8; O2SAT 98; BMI 29.7
--- NOTE | 2021-09-18 15:41 | ECG_ITS ---
Test Reason : CHEST PAIN Blood Pressure : / mmHG Vent. Rate : 095 BPM Atrial Rate : 095 BPM P-R Int : 160 ms QRS Dur : 082 ms QT Int : 340 ms P-R-T Axes : 024 006 034 degrees QTc Int : 427 ms Normal sinus rhythm Normal ECG When compared with ECG of 31-AUG-2021 08:59, Premature ventricular complexes are no longer Present Referred By: Generic ED Physician Electronically Signed By:CAMILO RUEDA MD
[2021-09-18 16:06] LABS: MANUAL DIFF FLAG NO
[2021-09-18 16:08] LABS: Basophils Absolute Auto 0.1 X10*3/uL (0.0-0.2); Basophils Percent Auto 0.6 % (0-2); Eosinophils Absolute Auto 0.2 X10*3/uL (0.0-0.4); Eosinophils Percent Auto 2.5 % (0-4); Hematocrit 38.4 % (37.0-47.0); Hemoglobin 12.4 g/dl (12.0-16.0); Imm Gran Abs Auto 0.03 X10*3/uL (0.00-0.03); Imm Gran Pct Auto 0.3 % (0.0-0.4); Lymphocytes Absolute Auto 2.2 X10*3/uL (1.2-4.9); Lymphocytes Percent Auto 25.4 % (20-40); Mean Corpuscular HGB Conc 32.3 g/dl (31.0-35.0); Mean Corpuscular Hemoglobin 28.8 pg (27.0-33.0); Mean Corpuscular Volume 89.3 fL (80.0-98.0); Mean Platelet Volume 9.6 fL (9.4-12.3); Monocytes Absolute Auto 0.5 X10*3/uL (0.1-1.2); Monocytes Percent Auto 5.5 % (2-11); Neutrophils Absolute Auto 5.8 x10*3/uL (2.0-8.3); Neutrophils Percent Auto 65.7 % (45-73); Platelet Count 292 X10*3/uL (160-400); Red Cell Distribution Width 12.4 % (11.0-16.0); White Blood Count 8.8 X10*3/uL (4.8-10.8)
[2021-09-18 16:21] LABS: Anion Gap 10 (12-20); Blood Urea Nitrogen 23 mg/dL (9-16); Calcium 9.4 mg/dL (8.4-10.2); Carbon Dioxide 32 mmol/L (22-29); Chloride 103 mmol/L (96-108); Creatinine Clr Calc Pharmacy 74.8; Estimated Glomerular Filt Rate > 60; Glucose Random 244 mg/dL (60-115); Potassium 4.3 mmol/L (3.3-5.1); Sodium 141 mmol/L (135-145)
[2021-09-18 16:28] LABS: Troponin-I High Sensitivity < 3.5 ng/L (<3.5-17.0)
--- NOTE | 2021-09-18 18:29 | ED_ITS ---
HPI - Chest Pain General Chief Complaint: Chest Pain <CARA Armendariz - Last Filed: 09/18/21 19:33> Stated Complaint: chest pain, headache, vomiting <CARA Armendariz - Last Filed: 09/18/21 19:33> Time Seen by Provider: 09/18/21 18:29 <CARA Armendariz - Last Filed: 09/18/21 19:33> Source: patient <CARA Armendariz Last Filed: 09/18/21 19:33> Mode of arrival: ambulatory <CARA Armendariz Last Filed: 09/18/21 19:33> Limitations: no limitations <CARA Armendariz - Last Filed: 09/18/21 19:33> History of Present Illness HPI narrative: 56-year-old female past medical history significant for diabetes, hyperlipidemia, hypertension, GERD presenting to the emergency department with concerns of rash X1 week. Patient also tells me she got a headache earlier today, chest pain, dizziness all of which have resolved. Patient tells me that she typically gets headache, chest pain when her sugar is high. She tells me she recheck it and now it is much lower and her symptoms have subsided. Patient tells me her headache felt like her typical headache no vision changes associated with it, is diffuse and gradual in onset however now it has subsided. She tells me she does not have a headache, chest pain, dizziness or nausea any more. She is tolerating fluids well. Speaking in full sentences. She tells me her only concern is this rash that she has had for a week it came on suddenly and she tells me that it has become more red and irritated over the past few hours. <CARA Armendariz - Last Filed: 09/18/21 19:33> MD complaint: chest pain <CARA Armendariz - Last Filed: 09/18/21 19:33> Onset (ago): day(s) (1) <CARA Armendariz Last Filed: 09/18/21 19:33> Timing of current episode: episodic <CARA Armendariz Last Filed: 09/18/21 19:33> Prior episodes: Yes <CARA Armendariz - Last Filed: 09/18/21 19:33> Onset: during rest <CARA Armendariz - Last Filed: 09/18/21 19:33> Pain location: substernal <CARA Armendariz - Last Filed: 09/18/21 19:33> Pain radiation: none <CARA Armendariz - Last Filed: 09/18/21 19:33> Severity: moderate <CARA Armendariz - Last Filed: 09/18/21 19:33> Relieving factors: nothing <CARA Armendariz - Last Filed: 09/18/21 19:33> Exacerbating factors: nothing <CARA Armendariz - Last Filed: 09/18/21 19:33> Treatment prior to arrival: none <CARA Armendariz - Last Filed: 09/18/21 19:33> Related Data Home Medications: Home Medications Medication Instructions Recorded Confirmed acetaminophen 500 mg capsule 500 mg PO Q6H PRN 05/22/20 02/12/21 (Mapap (acetaminophen)) atorvastatin 80 mg tablet 80 mg PO DAILY 05/22/20 02/12/21 duloxetine 60 mg capsule,delayed 60 mg PO DAILY 05/22/20 02/12/21 release fluticasone propionate 50 1 spray INTRANASAL DAILY 05/22/20 02/12/21 mcg/actuation nasal spray,suspension (Allergy Relief (fluticasone)) ibuprofen 600 mg tablet 600 mg PO Q8H PRN 05/22/20 02/12/21 levetiracetam 1,000 mg tablet 1,500 mg PO Q12H 05/22/20 02/12/21 lisinopril 2.5 mg tablet 2.5 mg PO DAILY 05/22/20 02/12/21 meclizine 25 mg tablet 25 mg PO DAILY PRN 05/22/20 02/12/21 sitagliptin 100 mg tablet (Januvia) 100 mg PO DAILY 04/21/21 levetiracetam 750 mg tablet 1,500 mg PO BID 06/24/21 lidocaine 5 % topical patch 0 patch TOPICAL 06/24/21 Previous Rx's Medication Instructions Recorded omeprazole 40 mg capsule,delayed 40 mg PO BID 30 Days #60 cap 05/22/20 release cyclobenzaprine 5 mg tablet 5 mg PO TID PRN #14 tab 07/21/20 lidocaine 4 % topical patch 1 patch TOPICAL Q24H PRN 10 Days 07/21/20 ea lidocaine 4 % topical patch 1 patch TOPICAL DAILY PRN #10 ea 11/04/20 clotrimazole 1 % topical cream 1 appl TOPICAL BID PRN #15 g 12/09/20 clotrimazole 2 % vaginal cream 1 appful VAGINAL BEDTIME 3 Days 12/09/20 (Clotrimazole 3 Day) #21 g canagliflozin 300 mg tablet 300 mg PO QAM #30 tab 02/12/21 (Invokana) ezetimibe 10 mg tablet 10 mg PO DAILY #30 tab 02/12/21 insulin glargine 100 unit/mL (3 28 unit (0.28 mL) SUBCUT BEDTIME 02/12/21 mL) subcutaneous pen (Lantus 30 Days #15 ml Solostar U-100 Insulin) insulin lispro 100 unit/mL See Rx Instructions SUBCUT 02/12/21 subcutaneous pen (Humalog KwikPen .COMPLEX #15 ml (U-100) Insulin) linaclotide 145 mcg capsule 145 mcg PO DAILY #30 cap 04/21/21 (Linzess) benzonatate 100 mg capsule 100 mg PO TID PRN #20 cap 05/11/21 (Tessalon Perles) nut.tx.gluc.intol,lac-free,soy 1 ea PO .COMPLEX #237 ml 07/14/21 (Glucerna) ondansetron HCl 4 mg tablet 4 mg PO Q6H PRN #10 tab 08/31/21 cholestyramine (with sugar) 4 gram 4 g PO BID #378 g 09/08/21 oral powder doxycycline hyclate 100 mg capsule 100 mg PO BID 10 Days #20 cap 09/18/21 <CARA Armendariz - Last Filed: 09/18/21 19:33> Allergies/Adverse Reactions: Allergies Allergy/AdvReac Type Severity Reaction Status Date / Time No Known Allergies Allergy Mild N/A Verified 09/18/21 15:37 <CARA Armendariz - Last Filed: 09/18/21 19:33> Review of Systems Review of Systems: Constitutional : No Weight loss, No Fever, No Chills, No Fatigue, No Malaise ENT/Mouth : No sore throat, No Rhinorrhea Eyes: No Eye Pain, No Swelling, No Redness Cardiovascular : No Chest Pain, No SOB, No Dyspnea on Exertion, No Orthopnea, No Edema, No Palpitations Respiratory : No Cough, No Sputum, No Wheezing Gastrointestinal : No Nausea, No Vomiting, No Diarrhea, No Constipation, No abdominal Pain, No Hematochezia, No Melena Genitourinary : No Dysuria, No Urinary Frequency, No Hematuria, Musculoskeletal : No joint pain, No Myalgias, No Joint Swelling Skin : No Skin Lesions, + rash Neuro : No Weakness, No Numbness, No Dizziness, No Headache Psych : No Anxiety/Panic, No Depression All other systems reviewed and are negative <CARA Armendariz - Last Filed: 09/18/21 19:33> REPLACED BY [facility] Past Medical History Attestation statement: The following information was validated with the patient. <CARA Armendariz - Last Filed: 09/18/21 19:33> Source: old records reviewed and nursing notes reviewed <CARA Armendariz - Last Filed: 09/18/21 19:33> Medical History: Medical History Asthma Depression Diabetes Diabetic retinopathy Epilepsy Essential hypertension Gastroparesis Hyperlipidemia Hyperlipidemia LDL goal <100 Hypertension Type 2 diabetes mellitus with hyperglycemia, with long-term current use of insulin <CARA Armendariz - Last Filed: 09/18/21 19:33> Surgical History: Surgical History H/O section H/O esophagogastroduodenoscopy (03/14/18) History of ankle surgery Hx of colonoscopy (~06/2018) <CARA Armendariz Last Filed: 09/18/21 19:33> Family History Family History: Family History Mother Diabetes Father Diabetes <CARA Armendariz - Last Filed: 09/18/21 19:33> Social History Social History: Social History (System 08/06/21 @ 14:11 by Ann Shah) Household Members: Spouse and Children Alcohol intake: never Patient Tobacco Use Status: Never used Tobacco Advance Directives: No Advance Directives Information Provided: No <CARA Armednariz - Last Filed: 09/18/21 19:33> Physical Exam Vital Signs: Vital Signs: Last Vital Signs Temp 98.1 F 09/18/21 18:52 Pulse 95 09/18/21 19:23 Resp 18 09/18/21 18:52 BP 173/99 H 09/18/21 19:23 Pulse Ox 96 09/18/21 18:52 BMI result Body Mass Index 29.7 VSS <CARA Armendariz - Last Filed: 09/18/21 19:33> Appearance: Alert.? Oriented X3.? No acute distress.? Head: Normocephalic, atraumatic, no step-offs or deformities Eyes: Pupils equal, round and reactive to light.? ENT: Pharynx normal.? Neck: Normal inspection.? Neck supple.? CVS: Normal heart rate and rhythm.? Pulses normal.? Respiratory: No respiratory distress.? Breath sounds normal.? Abdomen: Soft and nontender.? Skin: Skin warm and dry.? Normal skin color.? Normal skin turgor.?+ rash w/ callor Extremities: No lower extremity edema.? No calf ttp. 5/5 strength to bilateral upper and lower extremities Back: No midline tenderness, no C-spine tenderness, full range of motion, no CVA tenderness bilaterally Neuro: Oriented X 3.? No motor deficit.? No sensory deficit. CN 2-12 intact. Normal tilqiu-ta-esye, mflc-lv-[id number], normal tandem gait. <CARA Armendariz - Last Filed: 09/18/21 19:33> Course Reevaluation(s) Reevaluation #1: Patient's CBC within normal limits. Patient's carbon dioxide chronically elevated. BUN slightly elevated likely secondary to dehydration will give patient fluids. Random glucose 244. Will hydrate patient. Troponin negative. EKG nonischemic. Unlikely ACS. Acetone negative. <CARA Armendariz - Last Filed: 09/18/21 19:33> Time: 18:49 <CARA Armendariz - Last Filed: 09/18/21 19:33> Reevaluation #2: Patient sugars normalize. Acetone negative. Unlikely DKA. At this time patient will be discharged home this is unlikely ACS. Negative troponin, nonischemic EKG. Chest pain that subsided. I do not suspect this is a pulmonary embolism patient is saturating well on room air, she is not tachycard ic, tachypneic, no leg swelling negative Agustin bilaterally. Patient ambulating with a steady gait, normal cerebellar function at this time I do not suspect posterior infarct. I will treat patient for cellulitis as her rashes warm, erythematous. At this time patient is safe for discharge home. Advised her to return with new or worsening symptoms. Outline these under discharge. <CARA Armendariz - Last Filed: 09/18/21 19:33> Time: 19:31 <CARA Armendariz Last Filed: 09/18/21 19:33> MDM - Chest Pain MDM Narrative Medical decision making narrative: 1828 56 yo f pmhx diabetes, hyperlipidemia, hypertension, GERD presents w/ a rash X1 week. She was experiencing headache, dizziness and nausea earlier when her sugar was higher than usual at home. She tells me this always happens when her sugar is > 300 Physical exam significant for rash. Regular rate and rhythm. Lungs clear. Abdomen soft nontender nondistended. Unlikely that this is CVA, patient does not have a headache, no head trauma. Unlikely posterior stroke no focal neuro deficits, no vision changes, no weakness normal ccnxry-es-ozcr, [id number]-[id number] normal tandem gait, normal gai . Will rule out ACS. History and physical not consistent with PE. Rash likley cellulitis or allergic reaction. Unlikley DKA Plan basic labs EKG. <CARA Armendariz Last Filed: 09/18/21 19:33> Medical Records Data Attestation: I reviewed the patient's medical records. <CARA Armendariz Last Filed: 09/18/21 19:33> Lab Data Attestation: I reviewed the patient's lab results. <CARA Armendariz - Last Filed: 09/18/21 19:33> Result diagrams: : 09/18/21 15:58 09/18/21 15:58 <CARA Armendariz - Last Filed: 09/18/21 19:33> Labs: Lab Results 09/18/21 09/18/21 09/18/21 Range/Units 15:58 15:58 15:58 WBC 8.8 (4.8-10.8) X10*3/uL RBC 4.30 (4.20-5.50) X10*6/uL Hgb 12.4 (12.0-16.0) g/dl Hct 38.4 (37.0-47.0) % MCV 89.3 (80.0-98.0) fL MCH 28.8 (27.0-33.0) pg MCHC 32.3 (31.0-35.0) g/dl RDW 12.4 (11.0-16.0) % Plt Count 292 (160-400) X10*3/uL MPV 9.6 (9.4-12.3) fL Immature Gran % (Auto) 0.3 (0.0-0.4) % Neut % (Auto) 65.7 (45-73) % Lymph % (Auto) 25.4 (20-40) % [place] % (Auto) 5.5 (2-11) % Eos % (Auto) 2.5 (0-4) % Baso % (Auto) 0.6 (0-2) % Lymph # (Auto) 2.2 (1.2-4.9) X10*3/uL [place] # (Auto) 0.5 (0.1-1.2) X10*3/uL Eos # (Auto) 0.2 (0.0-0.4) X10*3/uL Baso # (Auto) 0.1 (0.0-0.2) X10*3/uL Abs Immat Gran (auto) 0.03 (0.00-0.03) X10*3/uL Absolute Neuts (auto) 5.8 (2.0-8.3) x10*3/uL Absolute Nucleated RBC 0.000 (0.0-0.012) X10*3/uL Nucleated RBC % (auto) 0.0 (0.0-0.2) /100WBC Sodium 141 (135-145) mmol/L Potassium 4.3 (3.3-5.1) mmol/L Chloride 103 (96-108) mmol/L Carbon Dioxide 32 H (22-29) mmol/L Anion Gap 10 L (12-20) BUN 23 H (9-16) mg/dL Creatinine 0.83 (0.5-1.4) mg/dL Estim Creat Clear Calc 74.8 Estimated GFR > 60 Random Glucose 244 H (60-115) mg/dL Calcium 9.4 D (8.4-10.2) mg/dL Troponin I High Sens < 3.5 (<3.5-17.0) ng/L Acetone, Qual (Negative) 09/18/21 Range/Units 19:07 WBC (4.8-10.8) X10*3/uL RBC (4.20-5.50) X10*6/uL Hgb (12.0-16.0) g/dl Hct (37.0-47.0) % MCV (80.0-98.0) fL MCH (27.0-33.0) pg MCHC (31.0-35.0) g/dl RDW (11.0-16.0) % Plt Count (160-400) X10*3/uL MPV (9.4-12.3) fL Immature Gran % (Auto) (0.0-0.4) % Neut % (Auto) (45-73) % Lymph % (Auto) (20-40) % [place] % (Auto) (2-11) % Eos % (Auto) (0-4) % Baso % (Auto) (0-2) % Lymph # (Auto) (1.2-4.9) X10*3/uL [place] # (Auto) (0.1-1.2) X10*3/uL Eos # (Auto) (0.0-0.4) X10*3/uL Baso # (Auto) (0.0-0.2) X10*3/uL Abs Immat Gran (auto) (0.00-0.03) X10*3/uL Absolute Neuts (auto) (2.0-8.3) x10*3/uL Absolute Nucleated RBC (0.0-0.012) X10*3/uL Nucleated RBC % (auto) (0.0-0.2) /100WBC Sodium (135-145) mmol/L Potassium (3.3-5.1) mmol/L Chloride (96-108) mmol/L Carbon Dioxide (22-29) mmol/L Anion Gap (12-20) BUN (9-16) mg/dL Creatinine (0.5-1.4) mg/dL Estim Creat Clear Calc Estimated GFR Random Glucose (60-115) mg/dL Calcium (8.4-10.2) mg/dL Troponin I High Sens (<3.5-17.0) ng/L Acetone, Qual Negative (Negative) <CARA Armendariz - Last Filed: 09/18/21 19:33> ECG Data ECG #1: Attestation: I personally reviewed and interpreted this ECG as follows: <CARA Armendariz - Last Filed: 09/18/21 19:33> ECG interpretation date: 09/18/21 <CARA Armendariz - Last Filed: 09/18/21 19:33> ECG interpretation time: 18:34 <CARA Armendariz - Last Filed: 09/18/21 19:33> Prior ECG tracings: available for review <CARA Armendariz - Last Filed: 09/18/21 19:33> Interpretation: Ventricular rate of 95, SD normal, QRS normal, QT/QTC normal. EKG shows normal sinus rhythm. No ST elevations or inversions concerning for ischem ia. No significant changes when compared to EKG from August 2021. <CARA Armendariz - Last Filed: 09/18/21 19:33> Critical Care Time Critical Care Time Critical Care Time: No <CARA Armendariz - Last Filed: 09/18/21 19:33> Discharge Plan Discharge Clinical Impression: Cellulitis, Chest pain not due to acute coronary syndrome <CARA Armendariz - Last Filed: 09/18/21 19:33> Patient Disposition: Home, Self-Care <CARA Armendariz Last Filed: 09/18/21 19:33> Instructions: Chest Pain (ED), Cellulitis (ED) <CARA Armendariz Last Filed: 09/18/21 19:33> Additional Instructions: Take your medications as prescribed. If you were prescribed antibiotics today, it is important that you take your medication to their entirety, do not skip any doses, do not finish them early. Follow-up with your primary care provider this week. Return to the emergency department with new or worsening symptoms. Such as fevers, chills, chest pain, shortness of breath, nausea, vomiting, dizziness, headache, vision changes, lethargy In case of emergency call 911 [place] ulises medicamentos seg?n lo prescrito. Si le recetaron antibi?ticos hoy, es importante que tome jesus medicamento en jesus totalidad, no se salte ninguna dosis, no los termine antes de tiempo. Seguimiento con jesus proveedor de atenci?n primaria esta semana. Regrese al departamento de emergencias con s?ntomas nuevos o que empeoran. [place] fiebre, escalofr?os, dolor de pecho, dificultad para respirar, n?useas, v?mitos, mareos, dolor de ramona, cambios en la visi?n, letargo En stoney de emergencia llama al 911 <CARA Armendariz Last Filed: 09/18/21 19:33> Prescriptions: New doxycycline hyclate 100 mg capsule 100 mg PO BID 10 Days Qty: 20 0RF No Action Glucerna Liquid 1 ea PO .COMPLEX Qty: 237 10RF Rx Instructions: 1 ea PO Twice daily; cholestyramine (with sugar) 4 gram powder 4 g PO BID Qty: 378 2RF Rx Instructions: administer w/meal; avoid other meds within 1hr before or 4-6hr after dose lidocaine 4 % adhesive patch,medicated 1 patch topical Q24H PRN (Reason: pain) 10 Days 0RF Rx Instructions: may leave on for up to 12 hrs cyclobenzaprine 5 mg tablet 5 mg PO TID PRN (Reason: muscle spasm) Qty: 14 0RF lidocaine 4 % adhesive patch,medicated 1 patch topical DAILY PRN (Reason: pain) Qty: 10 0RF Rx Instructions: may leave on for up to 12 hrs Clotrimazole 3 Day 2 % cream 1 appful vaginal BEDTIME 3 Days Qty: 21 0RF clotrimazole 1 % cream 1 appl topical BID PRN (Reason: Apply to vaginal rash, external use) Qty: 15 0RF ondansetron HCl 4 mg tablet 4 mg PO Q6H PRN (Reason: nausea and vomiting) Qty: 10 0RF benzonatate [Tessalon Perles] 100 mg capsule 100 mg PO TID PRN (Reason: cough) Qty: 20 0RF Lantus Solostar U-100 Insulin 100 unit/mL (3 mL) insulin pen 28 unit subcut BEDTIME 30 Days Qty: 15 1RF insulin lispro [Humalog KwikPen Insulin] 100 unit/mL insulin pen See Rx Instructions subcut .COMPLEX Qty: 15 1RF Rx Instructions: 4 units, plus 1 units for blood glucose >200, +2u for bg >300 subcut; Invokana 300 mg tablet 300 mg PO QAM Qty: 30 4RF ezetimibe 10 mg tablet 10 mg PO DAILY Qty: 30 5RF atorvastatin 80 mg tablet 80 mg PO DAILY 0RF duloxetine 60 mg capsule,delayed release(DR/EC) 60 mg PO DAILY 0RF ibuprofen 600 mg tablet 600 mg PO Q8H PRN0RF acetaminophen [Mapap (acetaminophen)] 500 mg capsule 500 mg PO Q6H PRN0RF levetiracetam 1,000 mg tablet 1,500 mg PO Q12H 0RF lisinopril 2.5 mg tablet 2.5 mg PO DAILY 0RF fluticasone propionate [Allergy Relief (fluticasone)] 50 mcg/actuation spray,suspension 1 spray intranasal DAILY 0RF Rx Instructions: administer into each nostril meclizine 25 mg tablet 25 mg PO DAILY PRN (Reason: dizziness) 0RF omeprazole 40 mg capsule,delayed release(DR/EC) 40 mg PO BID 30 Days Qty: 60 4RF Januvia 100 mg tablet 100 mg PO DAILY 0RF Linzess 145 mcg capsule 145 mcg PO DAILY Qty: 30 2RF lidocaine 5 % adhesive patch,medicated 0 patch topical 0RF levetiracetam 750 mg tablet 1,500 mg PO BID 0RF <CARA Armendariz - Last Filed: 09/18/21 19:33> Referrals: Rachael Brown MD [Primary Care Provider] - 2 days <CARA Armendariz - Last Filed: 09/18/21 19:33> Print Language: Chinese <CARA Armendariz - Last Filed: 09/18/21 19:33>
[2021-09-18 18:52] VITALS: BP 139/73; PULSE 84; RESP 18; TEMP 36.7; O2SAT 96
[2021-09-18] MEDS: 0.9 % Sodium Chloride 1,000 ML 999 ML IV ×2 (19:08)
[2021-09-18] MEDS: diphenhydrAMINE HCL 50 MG/ML VIAL 25 MG IVPUSH (19:12)
[2021-09-18 19:22] VITALS: BP 175/96; PULSE 98
[2021-09-18 19:23] VITALS: BP 167/98; BP 173/99; PULSE 91; PULSE 95
[2021-09-18 19:27] LABS: Acetone, serum QL Negative (Negative)
== END 2021-09-18 20:13 | disposition home or self-care (01) ==
PROVIDERS: Physician Assistant; Emergency Provider Emergency Medicine; PCP Internal Medicine
DX: R07.9 Chest pain, unspecified (principal); L03.90 Cellulitis, unspecified; E11.9 Type 2 diabetes mellitus without complications; I10 Essential (primary) hypertension; Z79.4 Long term (current) use of insulin
CPT/HCPCS: 36415; 80048; 82009; 84484; 85025; 93005; 96361; 96374; 99284; J1200

== ENCOUNTER → 2021-09-22 08:43 | Outpatient (BNVA) | payer MEDICAID, SELFPAY | PROVIDERS: PCP Internal Medicine; Referring Provider Internal Medicine; Visit Provider Nurse Practitioner Family | DX: K59.09 Other constipation (principal); K21.9 Gastro-esophageal reflux disease without esophagitis; R11.2 Nausea with vomiting, unspecified; R14.0 Abdominal distension (gaseous) | CPT/HCPCS: 99212 ==

== ENCOUNTER 2021-10-05 08:42 | Emergency (ER) | payer MEDICAID, SELFPAY ==
--- NOTE | 2021-10-05 09:22 | ED_ITS ---
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 Patient states that 2 weeks ago she was evaluated for a chest rash and given an antibiotic however, the rash is getting worse. Patient states that the rash is very itchy. Patient denies any dizziness, lightheadedness, abdominal pain, nausea, vomiting, fever, chills, blurry vision, double vision, loss of vision, chest pain, difficulty breathing, shortness of breath, back pain, night sweats, pain with urination, increased urinary frequency, increased urinary urgency, blood in her urine or stool, syncope or a near syncopal episode, recent trauma or falls, bowel incontinence, bladder incontinence, bowel retention, bladder retention, or any other complaints at this time. Patient states that she has a history of diabetes and epilepsy. Onset (ago): week(s) Location: chest Radiation: non-radiation Relieving factors: none Exacerbating factors: none Associated symptoms: rash Related Data Home Medications Medication Instructions Recorded Confirmed acetaminophen 500 mg capsule 500 mg PO Q6H PRN 05/22/20 02/12/21 (Mapap (acetaminophen)) atorvastatin 80 mg tablet 80 mg PO DAILY 05/22/20 02/12/21 duloxetine 60 mg capsule,delayed 60 mg PO DAILY 05/22/20 02/12/21 release fluticasone propionate 50 1 spray INTRANASAL DAILY 05/22/20 02/12/21 mcg/actuation nasal spray,suspension (Allergy Relief (fluticasone)) ibuprofen 600 mg tablet 600 mg PO Q8H PRN 05/22/20 02/12/21 levetiracetam 1,000 mg tablet 1,500 mg PO Q12H 05/22/20 02/12/21 meclizine 25 mg tablet 25 mg PO DAILY PRN 05/22/20 02/12/21 sitagliptin 100 mg tablet (Januvia) 100 mg PO DAILY 04/21/21 levetiracetam 750 mg tablet 1,500 mg PO BID 06/24/21 lidocaine 5 % topical patch 0 patch TOPICAL 06/24/21 aspirin 81 mg tablet,delayed 81 mg PO DAILY 09/22/21 release lisinopril 5 mg tablet 5 mg PO DAILY 09/22/21 Previous Rx's Medication Instructions Recorded omeprazole 40 mg capsule,delayed 40 mg PO BID 30 Days #60 cap 05/22/20 release cyclobenzaprine 5 mg tablet 5 mg PO TID PRN #14 tab 07/21/20 lidocaine 4 % topical patch 1 patch TOPICAL Q24H PRN 10 Days 07/21/20 ea lidocaine 4 % topical patch 1 patch TOPICAL DAILY PRN #10 ea 11/04/20 clotrimazole 1 % topical cream 1 appl TOPICAL BID PRN #15 g 12/09/20 clotrimazole 2 % vaginal cream 1 appful VAGINAL BEDTIME 3 Days 12/09/20 (Clotrimazole 3 Day) #21 g canagliflozin 300 mg tablet 300 mg PO QAM #30 tab 02/12/21 (Invokana) ezetimibe 10 mg tablet 10 mg PO DAILY #30 tab 02/12/21 insulin glargine 100 unit/mL (3 28 unit (0.28 mL) SUBCUT BEDTIME 02/12/21 mL) subcutaneous pen (Lantus 30 Days #15 ml Solostar U-100 Insulin) insulin lispro 100 unit/mL See Rx Instructions SUBCUT 02/12/21 subcutaneous pen (Humalog KwikPen .COMPLEX #15 ml (U-100) Insulin) linaclotide 145 mcg capsule 145 mcg PO DAILY #30 cap 04/21/21 (Linzess) benzonatate 100 mg capsule 100 mg PO TID PRN #20 cap 05/11/21 (Tessalon Perles) nut.tx.gluc.intol,lac-free,soy 1 ea PO .COMPLEX #237 ml 07/14/21 (Glucerna) ondansetron HCl 4 mg tablet 4 mg PO Q6H PRN #10 tab 08/31/21 cholestyramine (with sugar) 4 gram 4 g PO BID #378 g 09/08/21 oral powder doxycycline hyclate 100 mg capsule 100 mg PO BID 10 Days #20 cap 09/18/21 famotidine 40 mg tablet 40 mg PO BEDTIME #30 tab 09/22/21 simethicone 180 mg capsule (Gas 180 mg PO BID PRN #60 cap 09/22/21 Relief (simethicone)) prednisone 20 mg tablet 20 mg PO DAILY 12 Days #26 tab 10/05/21 Allergies Allergy/AdvReac Type Severity Reaction Status Date / Time No Known Allergies Allergy Verified 09/22/21 08:57 Review of Systems Constitutional: Constitutional: Reports no additional constitutional complaints, Denies chills, Denies fever(s) and Denies night sweats Eyes: Eyes: Reports no additional eye complaints, Denies blurry vision, Denies change in vision, Denies diplopia, Denies eye discharge, Denies loss of vision and Denies eye pain ENT: Denies dizziness Cardiovascular: Cardiovascular: Reports no additional cardiovascular complaints, Denies chest pain, Denies lightheadedness, Denies Loss of Consciousness and Denies dyspnea Respiratory: Respiratory: Reports no additional respiratory complaints and Denies dyspnea Gastrointestinal: Gastrointestinal: Reports no additional gastrointestinal complaints, Denies abdominal pain, Denies melena, Denies hematochezia, Denies change in bowel habits and Denies change in stool character Genitourinary: Genitourinary: Denies hematuria, Denies urinary frequency, Denies dysuria, Denies urinary incontinence, Denies urinary hesitancy and Denies urinary urgency Musculoskeletal: Musculoskeletal: Reports no additional musculoskeletal complaints, Denies numbness and Denies tingling Integumentary/Breasts: Skin/Breast: Reports pruritus and Reports rash Neurologic: Denies dizziness, Denies loss of vision, Denies numbness and Denies tingling Psychiatric: Psychiatric: Reports no additional psychiatric complaints Endocrine: Endocrine: Reports no additional endocrine complaints Hematologic/Lymphatic: Hematologic/Lymphatic: Reports no additional hematologic/lymphatic complaints Allergic/Immunologic: Allergic/Immunologic: Reports no additional allergic/immunologic complaints [facility] Past Medical History Attestation statement: The following information was validated with the patient. Source: old records reviewed Medical History Asthma Depression Diabetes Diabetic retinopathy Epilepsy Essential hypertension Gastroparesis Hyperlipidemia Hyperlipidemia LDL goal <100 Hypertension Type 2 diabetes mellitus with hyperglycemia, with long-term current use of insulin Surgical History H/O section H/O esophagogastroduodenoscopy (03/14/18) History of ankle surgery Hx of colonoscopy (~06/2018) Family History Family History Mother Diabetes Father Diabetes Social History Social History Household Members: Spouse and Children Alcohol intake: never Patient Tobacco Use Status: Never used Tobacco Advance Directives: Yes Advance Directives Information Provided: Yes Advance Directives on File: No Physical Exam ED Vital Signs: Vital Signs - 24 hr 10/05/21 09:32 Temperature 97.9 F Pulse Rate 99 Respiratory Rate 18 Blood Pressure 137/69 Pulse Oximetry 97 BMI result Body Mass Index 30.2 Const General: cooperative, no acute distress, alert and awake Nutritional Appearance: well nourished Orientation/consciousness: patient oriented x3 Limitations: no limitations HENMT Head: Yes normal to inspection and Yes atraumatic Ears: hearing grossly normal bilaterally and external ears normal General nose exam: Normal external nose present, no nasal discharge noted and no epistaxis Face and sinus: Yes normal facial exam, No abrasion and No laceration Mouth: Normal oral and palatal mucosa present, no drooling and no muffled voice Eyes General: appearance normal, both eyes and all related structures Periorbital: periorbital findings normal Eyelids: Yes eyelids normal Conjunctivae: conjunctivae normal Pupils: Equal, round and reactive pupils present EOM: EOMs intact bilaterally Neck Neck: Yes normal visual inspection, Yes full ROM and Yes no lymphadenopathy Chest Chest palpation & inspection: normal inspection of the chest Resp Effort & Inspection: normal respiratory effort and able to speak in complete sentences Auscultation: clear to auscultation bilaterally Cardio Rate: regular rate Rhythm: regular rhythm GI Inspection: Yes normal to inspection Skin Other: bright red rash to the chest with no urticaria or streaking Neuro General: patient oriented x3 and moves all extremities Cranial nerves: Yes Equal, round and reactive pupils present Cognition (Neuro): normal cognition Motor exam (neuro): 5/5 motor strength present throughout Sensory Exam: Normal double simultaneous stimulation for sensation Coordination: [id number] test normal Extrem General: Yes normal to inspection, Yes full ROM and Yes capillary refill normal Psych Appearance: grossly normal Mental Status: mental status grossly normal Affect: normal affect Attitude: cooperative Thought process: Normal thought process present Thought content: Normal thought content present Insight: Good insight present (Psych) Medical Decision Making MDM Narrative Medical decision making narrative: Patient is a 56 year old female presenting to the emergency department today with a rash. Patient's physical exam showed a bright red rash to the center of her chest with no streaking, urticaria, or plaques. I explained my physical exam findings to the patient. I answered all questions asked by the patient. Due to the patient's presentation and physical examination, I believe the patient to be suffering from a contact dermatitis. Patient's previous visit, she was prescribed doxycycline that did not help the rash. I do not believe this to be infectious. I stressed the importance of the patient taking her medication as prescribed. I explained to the patient the effects steroids may have her on blood sugars and to keep a close eye on them. I stressed the importance of the patient following up with her primary care provider. I stressed the importance of the patient returning to the emergency department immediately if her symptoms were to worsen or if she were to develop any dizziness, shortness of breath, difficulty breathing, chest pain, blurry vision, loss of vision, nausea, vomiting, abdominal pain, fever, chills, back pain, or any other complaints. Patient verbalized agreement and understanding with this treatment plan and discharge. Differential Diagnosis Differential Diagnosis: contact dermatitis, rash Medical Records Medical records reviewed: Yes I reviewed the patient's medical records. Lab Data Lab results reviewed: Yes I reviewed the patient's lab results. Discharge Plan Discharge Clinical Impression: Contact dermatitis Patient Disposition: Home, Self-Care Instructions: Contact Dermatitis (DC) Additional Instructions: Call [phone] to follow up with a process control specialist. Follow up with your primary care provider. Return to the emergency department immediately if your symptoms worsen or if you develop any dizziness, shortness of breath, difficulty breathing, chest pain, blurry vision, loss of vision, nausea, vomiting, abdominal pain, fever, chills, back pain, or any other complaints. Prescriptions: New prednisone 20 mg tablet 20 mg PO DAILY 12 Days Qty: 26 0RF Rx Instructions: Take 3 tablets for 5 days THEN; Take 2 tablets for 4 days THEN; Take 1 tablet for 3 days No Action Glucerna Liquid 1 ea PO .COMPLEX Qty: 237 10RF Rx Instructions: 1 ea PO Twice daily; cholestyramine (with sugar) 4 gram powder 4 g PO BID Qty: 378 2RF Rx Instructions: administer w/meal; avoid other meds within 1hr before or 4-6hr after dose lidocaine 4 % adhesive patch,medicated 1 patch topical Q24H PRN (Reason: pain) 10 Days 0RF Rx Instructions: may leave on for up to 12 hrs cyclobenzaprine 5 mg tablet 5 mg PO TID PRN (Reason: muscle spasm) Qty: 14 0RF lidocaine 4 % adhesive patch,medicated 1 patch topical DAILY PRN (Reason: pain) Qty: 10 0RF Rx Instructions: may leave on for up to 12 hrs Clotrimazole 3 Day 2 % cream 1 appful vaginal BEDTIME 3 Days Qty: 21 0RF clotrimazole 1 % cream 1 appl topical BID PRN (Reason: Apply to vaginal rash, external use) Qty: 15 0RF ondansetron HCl 4 mg tablet 4 mg PO Q6H PRN (Reason: nausea and vomiting) Qty: 10 0RF benzonatate [Tessalon Perles] 100 mg capsule 100 mg PO TID PRN (Reason: cough) Qty: 20 0RF doxycycline hyclate 100 mg capsule 100 mg PO BID 10 Days Qty: 20 0RF Lantus Solostar U-100 Insulin 100 unit/mL (3 mL) insulin pen 28 unit subcut BEDTIME 30 Days Qty: 15 1RF insulin lispro [Humalog KwikPen Insulin] 100 unit/mL insulin pen See Rx Instructions subcut .COMPLEX Qty: 15 1RF Rx Instructions: 4 units, plus 1 units for blood glucose >200, +2u for bg >300 subcut; Invokana 300 mg tablet 300 mg PO QAM Qty: 30 4RF ezetimibe 10 mg tablet 10 mg PO DAILY Qty: 30 5RF atorvastatin 80 mg tablet 80 mg PO DAILY 0RF duloxetine 60 mg capsule,delayed release(DR/EC) 60 mg PO DAILY 0RF ibuprofen 600 mg tablet 600 mg PO Q8H PRN0RF acetaminophen [Mapap (acetaminophen)] 500 mg capsule 500 mg PO Q6H PRN0RF levetiracetam 1,000 mg tablet 1,500 mg PO Q12H 0RF fluticasone propionate [Allergy Relief (fluticasone)] 50 mcg/actuation spray,suspension 1 spray intranasal DAILY 0RF Rx Instructions: administer into each nostril meclizine 25 mg tablet 25 mg PO DAILY PRN (Reason: dizziness) 0RF omeprazole 40 mg capsule,delayed release(DR/EC) 40 mg PO BID 30 Days Qty: 60 4RF Januvia 100 mg tablet 100 mg PO DAILY 0RF Linzess 145 mcg capsule 145 mcg PO DAILY Qty: 30 2RF lisinopril 5 mg tablet 5 mg PO DAILY 0RF aspirin 81 mg tablet,delayed release (DR/EC) 81 mg PO DAILY 0RF simethicone [Gas Relief (simethicone)] 180 mg capsule 180 mg PO BID PRN (Reason: abdominal distention) Qty: 60 1RF famotidine 40 mg tablet 40 mg PO BEDTIME Qty: 30 3RF lidocaine 5 % adhesive patch,medicated 0 patch topical 0RF levetiracetam 750 mg tablet 1,500 mg PO BID 0RF Referrals: Rachael Brown MD [Primary Care Provider] - 2 days Interventions: ED Discharge Assessment Last Done: 10/05/21 10:28 Discharge Date/Time: 10/05/21 10:29 Print Language: Urdu
[2021-10-05 09:32] VITALS: BP 137/69; PULSE 99; RESP 18; TEMP 36.6; O2SAT 97; BMI 30.2
== END 2021-10-05 10:29 | disposition home or self-care (01) ==
PROVIDERS: Emergency Provider Emergency Medicine; PCP Internal Medicine
DX: L25.9 Unspecified contact dermatitis, unspecified cause (principal); R21 Rash and other nonspecific skin eruption; E11.9 Type 2 diabetes mellitus without complications; I10 Essential (primary) hypertension; E78.5 Hyperlipidemia, unspecified; Z79.4 Long term (current) use of insulin; Z79.02 Long term (current) use of antithrombotics/antiplatelets
CPT/HCPCS: 99283

== ENCOUNTER 2022-03-06 08:26 | Emergency (ER) | payer MEDICAID, SELFPAY ==
[2022-03-06 08:38] VITALS: BP 128/94; BP 139/80; PULSE 87; PULSE 95; RESP 16; TEMP 36; O2SAT 96; BMI 30.2
[2022-03-06 10:56] LABS: MANUAL DIFF FLAG NO
[2022-03-06 10:57] LABS: Basophils Percent Auto 0.4 % (0-2); Eosinophils Absolute Auto 0.2 X10*3/uL (0.0-0.4); Eosinophils Percent Auto 2.8 % (0-4); Hematocrit 40.8 % (37.0-47.0); Hemoglobin 13.5 g/dl (12.0-16.0); Imm Gran Abs Auto 0.02 X10*3/uL (0.00-0.03); Imm Gran Pct Auto 0.3 % (0.0-0.4); Lymphocytes Absolute Auto 2.1 X10*3/uL (1.2-4.9); Lymphocytes Percent Auto 30.6 % (20-40); Mean Corpuscular HGB Conc 33.1 g/dl (31.0-35.0); Mean Corpuscular Hemoglobin 28.8 pg (27.0-33.0); Mean Corpuscular Volume 87.2 fL (80.0-98.0); Mean Platelet Volume 9.4 fL (9.4-12.3); Monocytes Absolute Auto 0.4 X10*3/uL (0.1-1.2); Monocytes Percent Auto 5.7 % (2-11); Neutrophils Absolute Auto 4.1 x10*3/uL (2.0-8.3); Neutrophils Percent Auto 60.2 % (45-73); Platelet Count 272 X10*3/uL (160-400); Red Blood Count 4.68 X10*6/uL (4.20-5.50); Red Cell Distribution Width 12.2 % (11.0-16.0); White Blood Count 6.8 X10*3/uL (4.8-10.8)
[2022-03-06 11:03] LABS: Appearance Urine Cloudy; Color Urine Yellow; Glucose Urine UA >=1000 mg/dL (Negative); Leukocyte Esterase Urine Trace (Negative); Nitrite Urine Negative (Negative); PH 5.5 (5.0-8.0); Specific Gravity - Urine 1.025 (1.005-1.025); Urine Blood Negative (Negative); Urine Ketones Negative (Negative); Urine Protein Negative (Neg-Trace)
[2022-03-06 11:33] LABS: Alanine Aminotransferase 11 U/L (0-31); Albumin Level 3.6 g/dL (3.5-5.0); Alkaline Phosphatase 116 U/L (39-117); Anion Gap 14 (12-20); Aspartate Amino Transferase 16 U/L (5-31); Bilirubin Total 0.6 mg/dL (0.0-1.0); Blood Urea Nitrogen 17 mg/dL (9-16); Calcium 9.1 mg/dL (8.4-10.2); Carbon Dioxide 28 mmol/L (22-29); Chloride 105 mmol/L (96-108); Creatinine Clr Calc Pharmacy 85.9; Estimated Glomerular Filt Rate > 60; Glucose Random 75 mg/dL (60-115); Potassium 4.1 mmol/L (3.3-5.1); Sodium 143 mmol/L (135-145)
[2022-03-06 11:40] LABS: Bacteria Urine 4+ (None Seen); RBC Urine 0-2 /HPF (0-2); Squamous Epithelial Cell Urine >20 /HPF (0-2); UACC Culture Trigger YES
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
== END 2022-03-06 12:23 | disposition home or self-care (01) ==
PROVIDERS: Emergency Provider Emergency Medicine; PCP Internal Medicine
DX: S39.012A Strain of muscle, fascia and tendon of lower back, initial encounter (principal); W22.09XA Striking against other stationary object, initial encounter; N39.0 Urinary tract infection, site not specified; E11.9 Type 2 diabetes mellitus without complications; I10 Essential (primary) hypertension; E78.5 Hyperlipidemia, unspecified; Z79.4 Long term (current) use of insulin; Y93.89 Activity, other specified; Y92.019 Unspecified place in single-family (private) house as the place of occurrence of the external cause; Y99.9 Unspecified external cause status; Z79.02 Long term (current) use of antithrombotics/antiplatelets; Z79.899 Other long term (current) drug therapy
CPT/HCPCS: 36415; 80053; 81001; 81003; 85025; 87086; 99283

== ENCOUNTER 2022-05-01 08:09 | Emergency (ER) | payer MEDICAID, SELFPAY ==
--- NOTE | ~2022-05-01 | XR_ITS ---
EXAMINATION: XR CHEST CLINICAL INFORMATION: Chest pain. COMPARISON: 05/11/2021 chest radiograph. TECHNIQUE: Frontal view of the chest was obtained. FINDINGS: No significant abnormality is noted involving the heart, lungs, mediastinum, bony thorax or soft tissues. XR/XR chest 1V IMPRESSION: No acute cardiopulmonary process.
[2022-05-01 08:20] VITALS: BP 145/83; BP 150/82; PULSE 92; PULSE 97; RESP 13; TEMP 36.6; O2SAT 987; O2SAT 99; BMI 27.7
--- NOTE | 2022-05-01 08:32 | ED_ITS ---
HPI - Headache General Chief Complaint: Headache Stated Complaint: HEADACHE PER EMS Time Seen by Provider: 05/01/22 08:20 Source: patient, family, EMS and old records reviewed Mode of arrival: EMS Limitations: no limitations History of Present Illness HPI Narrative: 57 y/o female with history of DM2 on insulin, HLD, HTN, GERD, seizure disorder who presents to the via EMS from home for evaluation of acute onset of frontal headache and facial pain that started at 6am when she woke up. She reports some mild right sided chest pain that is worse with deep breaths and palpation, it does not radiate and comes and goes. She reports history of migraines in the past and reports associated dizziness and blurred vision. She feels like she is going to have a seizure. She says it has been a very long time since she has had a seizure and has been compliant with her anti-seizure medications, took them this morning. She denies any fever, chills, N/V/D or abdominal pain. She has been coughing some the last few days per her family member MD elicited complaint: headache Pertinent past history: migraines and hypertension Onset (ago): hour(s) (3) Onset description: suddenly Location: frontal and facial Severity: moderate Quality & Timing: aching and sharp Exacerbating factors: none Relieving factors: nothing Context: occurred at rest Associated symptoms: photophobia, chest pain and lightheadedness Treatments prior to arrival: none Related Data Home Medications Medication Instructions Recorded Confirmed acetaminophen 500 mg capsule 500 mg PO Q6H PRN 05/22/20 02/12/21 (Mapap (acetaminophen)) atorvastatin 80 mg tablet 80 mg PO DAILY 05/22/20 02/12/21 duloxetine 60 mg capsule,delayed 60 mg PO DAILY 05/22/20 02/12/21 release fluticasone propionate 50 1 spray intranasal DAILY 05/22/20 02/12/21 mcg/actuation nasal spray,suspension (Allergy Relief (fluticasone)) ibuprofen 600 mg tablet 600 mg PO Q8H PRN 05/22/20 02/12/21 levetiracetam 1,000 mg tablet 1,500 mg PO Q12H 05/22/20 02/12/21 meclizine 25 mg tablet 25 mg PO DAILY PRN dizziness 05/22/20 02/12/21 levetiracetam 750 mg tablet 1,500 mg PO BID 06/24/21 lidocaine 5 % topical patch 0 patch topical 06/24/21 aspirin 81 mg tablet,delayed 81 mg PO DAILY 09/22/21 release lisinopril 5 mg tablet 5 mg PO DAILY 09/22/21 Previous Rx's Medication Instructions Recorded omeprazole 40 mg capsule,delayed 40 mg PO BID 30 days #60 caps 05/22/20 release cyclobenzaprine 5 mg tablet 5 mg PO TID PRN muscle spasm #14 07/21/20 tabs lidocaine 4 % topical patch 1 patch topical Q24H PRN pain 10 07/21/20 days lidocaine 4 % topical patch 1 patch topical DAILY PRN pain #10 11/04/20 ea clotrimazole 1 % topical cream 1 appl topical BID PRN Apply to 12/09/20 vaginal rash, external use #15 grams clotrimazole 2 % vaginal cream 1 appful vaginal BEDTIME 3 days 12/09/20 (Clotrimazole 3 Day) #21 grams insulin glargine 100 unit/mL (3 28 unit (0.28 mL) subcut BEDTIME 02/12/21 mL) subcutaneous pen (Lantus 30 days #15 mL Solostar U-100 Insulin) linaclotide 145 mcg capsule 145 mcg PO DAILY #30 caps 04/21/21 (Linzess) benzonatate 100 mg capsule 100 mg PO TID PRN cough #20 caps 05/11/21 (Tessalon Perles) nut.tx.gluc.intol,lac-free,soy 1 ea PO .COMPLEX #237 mL 07/14/21 (Glucerna oral liquid) ondansetron HCl 4 mg tablet 4 mg PO Q6H PRN nausea and 08/31/21 vomiting #10 tabs cholestyramine (with sugar) 4 gram 4 g PO BID #378 grams 09/08/21 oral powder doxycycline hyclate 100 mg capsule 100 mg PO BID 10 days #20 caps 09/18/21 famotidine 40 mg tablet 40 mg PO BEDTIME #30 tabs 09/22/21 simethicone 180 mg capsule (Gas 180 mg PO BID PRN abdominal 09/22/21 Relief (simethicone)) distention #60 caps prednisone 20 mg tablet 20 mg PO DAILY 12 days #26 tabs 10/05/21 insulin lispro 100 unit/mL See Rx Instructions subcut 10/21/21 subcutaneous pen (Humalog KwikPen .COMPLEX #15 mL (U-100) Insulin) canagliflozin 300 mg tablet 300 mg PO QAM #30 tabs 12/23/21 (Invokana) ezetimibe 10 mg tablet 10 mg PO DAILY #30 tabs 12/23/21 sitagliptin 100 mg tablet (Januvia) 100 mg PO DAILY #30 tabs 12/23/21 cefuroxime axetil 250 mg tablet 250 mg PO Q12H 7 days #14 tabs 03/06/22 cyclobenzaprine 5 mg tablet 5 mg PO BEDTIME PRN muscle spasm 03/06/22 #14 tabs lidocaine 5 % topical patch 1 patch topical DAILY #15 ea 03/06/22 (Lidoderm) cefuroxime axetil 250 mg tablet 250 mg PO BID 6 days #12 tabs 05/01/22 Allergies Allergy/AdvReac Type Severity Reaction Status Date / Time No Known Allergies Allergy Verified 09/22/21 08:57 Review of Systems Review of Systems: Constitutional: No Fever, No Chills ENT/Mouth: No sore throat, No Rhinorrhea, No Swallowing Difficulty Eyes: No Eye Pain, No Swelling, No Redness, +Blurred vision Cardiovascular: +Chest Pain, No SOB, No Orthopnea, No Edema Respiratory: No Cough, No Sputum, No Wheezing, No dyspnea Gastrointestinal: No Nausea, No Vomiting, No Diarrhea, No abdominal Pain Genitourinary: No Dysuria, No Urinary Frequency, No Hematuria Musculoskeletal: No joint pain, No Myalgias Skin: No Skin Lesions, No rash Neuro: No Weakness, No Numbness, + Dizziness, +Headache Psych: + Anxiety/Panic, No Depression Heme/Lymph: No Bruising, No Lymphadenopathy Endocrine: No Polyuria, No Polydipsia PMFSH Past Medical History Medical History Asthma Depression Diabetes Diabetic retinopathy Epilepsy Essential hypertension Gastroparesis Hyperlipidemia Hyperlipidemia LDL goal <100 Hypertension Type 2 diabetes mellitus with hyperglycemia, with long-term current use of insulin Surgical History H/O section H/O esophagogastroduodenoscopy (03/14/18) History of ankle surgery Hx of colonoscopy (~06/2018) Family History Family History Mother Diabetes Father Diabetes Social History Social History Household Members: Spouse, Children and Caregiver Do you presently have visiting nurse or other home services: Yes ([facility] Visiting nurse. [phone], can call in regrads to patients care.) Alcohol intake: never Patient Tobacco Use Status: Never used Tobacco Advance Directives: No Advance Directives Information Provided: Yes Physical Exam Vital Signs: Vital Signs: Last Vital Signs Temp 97.8 F 05/01/22 08:20 Pulse 92 05/01/22 08:20 Resp 13 05/01/22 08:20 BP 145/83 H 05/01/22 08:20 Pulse Ox 99 05/01/22 08:20 O2 Del Method 05/01/22 08:20 BMI result Body Mass Index 27.7 Appearance: Alert. Oriented X3. No acute distress. Head/face: normocephalic, atraumatic. no tenderness of the sinuses. no temporal tenderness Eyes: Pupils equal, round and reactive to light. ENT: Pharynx normal. Neck: Normal inspection. Neck supple. CVS: Normal heart rate and rhythm. Pulses normal. Right upper chest wall with mild tenderness. Respiratory: No respiratory distress. Breath sounds normal. Abdomen: Soft and nontender. +BS x4 Skin: Skin warm and dry. Normal skin color. Normal skin turgor. No rashes. Extremities: No lower extremity edema. Neuro: Oriented X 3. No motor deficit. No sensory deficit. Course Course Course Narrative: 57-year-old female with history of DM 2, HTN, HLD, GERD, migraines, seizures who presents to the ER for evaluation of an acute onset of a frontal headache, facial pain and right-sided chest pain that started at 06:00 when she woke up. She feels like she may have a seizure. She is AAO x3, nonfocal. Will check EKG, labs and medicate with tylenol. will reassess. Reevaluation(s) Reevaluation #1: Headache improved with tylenol. EKG without ischemic changes. 1st troponin negative. Chest pain resolved. UA ++ for infection. will give dose of IV rocephin while she is here and plan to d/c on ceftin. not septic. 2nd troponin ordered but patient declined and would like to go home. Doubt ACS. Comfortable with d/c - return precautions discussed. MDM - Headache Lab Data Result diagrams: 05/01/22 08:58 05/01/22 08:58 Labs: Lab Results 05/01/22 05/01/22 05/01/22 Range/Units 08:58 08:58 08:58 WBC 9.3 (4.8-10.8) X10*3/uL RBC 4.39 (4.20-5.50) X10*6/uL Hgb 12.9 (12.0-16.0) g/dl Hct 38.7 (37.0-47.0) % MCV 88.2 (80.0-98.0) fL MCH 29.4 (27.0-33.0) pg MCHC 33.3 (31.0-35.0) g/dl RDW 12.3 (11.0-16.0) % Plt Count 343 D (160-400) X10*3/uL MPV 9.5 (9.4-12.3) fL Immature Gran % (Auto) 0.3 (0.0-0.4) % Neut % (Auto) 68.3 (45-73) % Lymph % (Auto) 23.5 (20-40) % [place] % (Auto) 4.8 (2-11) % Eos % (Auto) 2.6 (0-4) % Baso % (Auto) 0.5 (0-2) % Lymph # (Auto) 2.2 (1.2-4.9) X10*3/uL [place] # (Auto) 0.5 (0.1-1.2) X10*3/uL Eos # (Auto) 0.2 (0.0-0.4) X10*3/uL Baso # (Auto) 0.1 (0.0-0.2) X10*3/uL Abs Immat Gran (auto) 0.03 (0.00-0.03) X10*3/uL Absolute Neuts (auto) 6.4 (2.0-8.3) x10*3/uL Absolute Nucleated RBC 0.000 (0.0-0.012) X10*3/uL Nucleated RBC % (auto) 0.0 (0.0-0.2) /100WBC Sodium 143 (135-145) mmol/L Potassium 4.0 (3.3-5.1) mmol/L Chloride 107 (96-108) mmol/L Carbon Dioxide 27 (22-29) mmol/L Anion Gap 13 (12-20) BUN 19 H (9-16) mg/dL Creatinine 0.69 (0.5-1.4) mg/dL Estim Creat Clear Calc 85.9 Estimated GFR > 60 Random Glucose 61 (60-115) mg/dL Calcium 9.2 (8.4-10.2) mg/dL Magnesium 1.9 (1.6-2.6) mg/dL Total Bilirubin 0.7 (0.0-1.0) mg/dL Direct Bilirubin 0.2 (0.0-0.5) mg/dL AST 12 (5-31) U/L ALT 11 (0-31) U/L Alkaline Phosphatase 109 (39-117) U/L Troponin I High Sens < 3.5 (<3.5-17.0) ng/L Total Protein 6.8 (6.5-8.0) g/dL Albumin 3.7 (3.5-5.0) g/dL Urine Color Urine Appearance Urine pH (5.0-9.0) Ur Specific [place] (1.005-1.025) Urine Protein (Neg-Trace) mg/dL Urine Glucose (UA) (Negative) mg/dL Urine Ketones (Negative) mg/dL Urine Blood (Negative) Urine Nitrite (Negative) Ur Leukocyte Esterase (Negative) Urine RBC (0-2) /HPF Urine WBC (0-5) /HPF Ur Squamous Epith Cells (0-2) /HPF Urine Bacteria (None Seen) Hyaline Casts (0-2) /LPF Urine Opiates Screen (Not Detect) Urine Fentanyl Screen (Not Detect) Ur Barbiturates Screen (Not Detect) Ur Phencyclidine Scrn (Not Detect) Ur Amphetamines Screen (Not Detect) U Benzodiazepines Scrn (Not Detect) Urine Cocaine Screen (Not Detect) U Marijuana (THC) Screen (Not Detect) Ethyl Alcohol mg/dL COVID-19 ([facility]) (Negative) COVID-19 Clin Com 05/01/22 05/01/22 05/01/22 Range/Units 08:58 08:58 09:25 WBC (4.8-10.8) X10*3/uL RBC (4.20-5.50) X10*6/uL Hgb (12.0-16.0) g/dl Hct (37.0-47.0) % MCV (80.0-98.0) fL MCH (27.0-33.0) pg MCHC (31.0-35.0) g/dl RDW (11.0-16.0) % Plt Count (160-400) X10*3/uL MPV (9.4-12.3) fL Immature Gran % (Auto) (0.0-0.4) % Neut % (Auto) (45-73) % Lymph % (Auto) (20-40) % [place] % (Auto) (2-11) % Eos % (Auto) (0-4) % Baso % (Auto) (0-2) % Lymph # (Auto) (1.2-4.9) X10*3/uL [place] # (Auto) (0.1-1.2) X10*3/uL Eos # (Auto) (0.0-0.4) X10*3/uL Baso # (Auto) (0.0-0.2) X10*3/uL Abs Immat Gran (auto) (0.00-0.03) X10*3/uL Absolute Neuts (auto) (2.0-8.3) x10*3/uL Absolute Nucleated RBC (0.0-0.012) X10*3/uL Nucleated RBC % (auto) (0.0-0.2) /100WBC Sodium (135-145) mmol/L Potassium (3.3-5.1) mmol/L Chloride (96-108) mmol/L Carbon Dioxide (22-29) mmol/L Anion Gap (12-20) BUN (9-16) mg/dL Creatinine (0.5-1.4) mg/dL Estim Creat Clear Calc Estimated GFR Random Glucose (60-115) mg/dL Calcium (8.4-10.2) mg/dL Magnesium (1.6-2.6) mg/dL Total Bilirubin (0.0-1.0) mg/dL Direct Bilirubin (0.0-0.5) mg/dL AST (5-31) U/L ALT (0-31) U/L Alkaline Phosphatase (39-117) U/L Troponin I High Sens (<3.5-17.0) ng/L Total Protein (6.5-8.0) g/dL Albumin (3.5-5.0) g/dL Urine Color Urine Appearance Urine pH (5.0-9.0) Ur Specific [place] (1.005-1.025) Urine Protein (Neg-Trace) mg/dL Urine Glucose (UA) (Negative) mg/dL Urine Ketones (Negative) mg/dL Urine Blood (Negative) Urine Nitrite (Negative) Ur Leukocyte Esterase (Negative) Urine RBC (0-2) /HPF Urine WBC (0-5) /HPF Ur Squamous Epith Cells (0-2) /HPF Urine Bacteria (None Seen) Hyaline Casts (0-2) /LPF Urine Opiates Screen Not Detected (Not Detect) Urine Fentanyl Screen Not Detected (Not Detect) Ur Barbiturates Screen Not Detected (Not Detect) Ur Phencyclidine Scrn Not Detected (Not Detect) Ur Amphetamines Screen Not Detected (Not Detect) U Benzodiazepines Scrn Not Detected (Not Detect) Urine Cocaine Screen Not Detected (Not Detect) U Marijuana (THC) Screen Not Detected (Not Detect) Ethyl Alcohol < 10 mg/dL COVID-19 ([facility]) Negative (Negative) COVID-19 Clin Com See Note 05/01/22 Range/Units 09:25 WBC (4.8-10.8) X10*3/uL RBC (4.20-5.50) X10*6/uL Hgb (12.0-16.0) g/dl Hct (37.0-47.0) % MCV (80.0-98.0) fL MCH (27.0-33.0) pg MCHC (31.0-35.0) g/dl RDW (11.0-16.0) % Plt Count (160-400) X10*3/uL MPV (9.4-12.3) fL Immature Gran % (Auto) (0.0-0.4) % Neut % (Auto) (45-73) % Lymph % (Auto) (20-40) % [place] % (Auto) (2-11) % Eos % (Auto) (0-4) % Baso % (Auto) (0-2) % Lymph # (Auto) (1.2-4.9) X10*3/uL [place] # (Auto) (0.1-1.2) X10*3/uL Eos # (Auto) (0.0-0.4) X10*3/uL Baso # (Auto) (0.0-0.2) X10*3/uL Abs Immat Gran (auto) (0.00-0.03) X10*3/uL Absolute Neuts (auto) (2.0-8.3) x10*3/uL Absolute Nucleated RBC (0.0-0.012) X10*3/uL Nucleated RBC % (auto) (0.0-0.2) /100WBC Sodium (135-145) mmol/L Potassium (3.3-5.1) mmol/L Chloride (96-108) mmol/L Carbon Dioxide (22-29) mmol/L Anion Gap (12-20) BUN (9-16) mg/dL Creatinine (0.5-1.4) mg/dL Estim Creat Clear Calc Estimated GFR Random Glucose (60-115) mg/dL Calcium (8.4-10.2) mg/dL Magnesium (1.6-2.6) mg/dL Total Bilirubin (0.0-1.0) mg/dL Direct Bilirubin (0.0-0.5) mg/dL AST (5-31) U/L ALT (0-31) U/L Alkaline Phosphatase (39-117) U/L Troponin I High Sens (<3.5-17.0) ng/L Total Protein (6.5-8.0) g/dL Albumin (3.5-5.0) g/dL Urine Color Yellow Urine Appearance Cloudy Urine pH 5.5 (5.0-9.0) Ur Specific [place] 1.015 (1.005-1.025) Urine Protein Negative (Neg-Trace) mg/dL Urine Glucose (UA) 500 H (Negative) mg/dL Urine Ketones Negative (Negative) mg/dL Urine Blood Trace H (Negative) Urine Nitrite Negative (Negative) Ur Leukocyte Esterase Large (3+) H (Negative) Urine RBC 0-2 (0-2) /HPF Urine WBC >50 H (0-5) /HPF Ur Squamous Epith Cells 6-10 (0-2) /HPF Urine Bacteria 4+ (None Seen) Hyaline Casts 0-2 (0-2) /LPF Urine Opiates Screen (Not Detect) Urine Fentanyl Screen (Not Detect) Ur Barbiturates Screen (Not Detect) Ur Phencyclidine Scrn (Not Detect) Ur Amphetamines Screen (Not Detect) U Benzodiazepines Scrn (Not Detect) Urine Cocaine Screen (Not Detect) U Marijuana (THC) Screen (Not Detect) Ethyl Alcohol mg/dL COVID-19 ([facility]) (Negative) COVID-19 Clin Com Discharge Plan Discharge Clinical Impression: Acute UTI, Headache Patient Disposition: Home, Self-Care Instructions: Urinary Tract Infection in Women (ED), Acute Headache (ED) Additional Instructions: Your lab workup today was normal. Your urine test showed signs of infection. Your given 1 dose of IV antibiotics today. Take the prescribed antibiotic starting tomorrow morning. Complete the entire course. Make sure drinking plenty of water and staying hydrated. Take Tylenol and Motrin as needed for headaches. If you develop new or worsening symptoms call 911 or come back to the ER for further evaluation. Prescriptions: New cefuroxime axetil 250 mg tablet 250 mg PO BID 6 Days Qty: 12 0RF No Action Glucerna Liquid 1 ea PO .COMPLEX Qty: 237 10RF Rx Instructions: 1 ea PO Twice daily; cholestyramine (with sugar) 4 gram powder 4 g PO BID Qty: 378 2RF Rx Instructions: administer w/meal; avoid other meds within 1hr before or 4-6hr after dose insulin lispro [Humalog KwikPen Insulin] 100 unit/mL insulin pen See Rx Instructions subcut .COMPLEX Qty: 15 0RF Rx Instructions: 4 units, plus 1 units for blood glucose >200, +2u for bg >300 subcut; Invokana 300 mg tablet 300 mg PO QAM Qty: 30 0RF Rx Instructions: please send future refills to pcp ezetimibe 10 mg tablet 10 mg PO DAILY Qty: 30 0RF Rx Instructions: please send future refills to pcp Januvia 100 mg tablet 100 mg PO DAILY Qty: 30 0RF Rx Instructions: please send future refills to pcp lidocaine 4 % adhesive patch,medicated 1 patch topical Q24H PRN (Reason: pain) 10 Days 0RF Rx Instructions: may leave on for up to 12 hrs cyclobenzaprine 5 mg tablet 5 mg PO TID PRN (Reason: muscle spasm) Qty: 14 0RF lidocaine 4 % adhesive patch,medicated 1 patch topical DAILY PRN (Reason: pain) Qty: 10 0RF Rx Instructions: may leave on for up to 12 hrs Clotrimazole 3 Day 2 % cream 1 appful vaginal BEDTIME 3 Days Qty: 21 0RF clotrimazole 1 % cream 1 appl topical BID PRN (Reason: Apply to vaginal rash, external use) Qty: 15 0RF ondansetron HCl 4 mg tablet 4 mg PO Q6H PRN (Reason: nausea and vomiting) Qty: 10 0RF prednisone 20 mg tablet 20 mg PO DAILY 12 Days Qty: 26 0RF Rx Instructions: Take 3 tablets for 5 days THEN; Take 2 tablets for 4 days THEN; Take 1 tablet for 3 days cefuroxime axetil 250 mg tablet 250 mg PO Q12H 7 Days Qty: 14 0RF lidocaine [Lidoderm] 5 % adhesive patch,medicated 1 patch topical DAILY Qty: 15 0RF Rx Instructions: leave on most painful area for up to 12 hrs cyclobenzaprine 5 mg tablet 5 mg PO BEDTIME PRN (Reason: muscle spasm) Qty: 14 0RF benzonatate [Tessalon Perles] 100 mg capsule 100 mg PO TID PRN (Reason: cough) Qty: 20 0RF doxycycline hyclate 100 mg capsule 100 mg PO BID 10 Days Qty: 20 0RF Lantus Solostar U-100 Insulin 100 unit/mL (3 mL) insulin pen 28 unit subcut BEDTIME 30 Days Qty: 15 1RF atorvastatin 80 mg tablet 80 mg PO DAILY duloxetine 60 mg capsule,delayed release(DR/EC) 60 mg PO DAILY ibuprofen 600 mg tablet 600 mg PO Q8H PRN acetaminophen [Mapap (acetaminophen)] 500 mg capsule 500 mg PO Q6H PRN levetiracetam 1,000 mg tablet 1,500 mg PO Q12H fluticasone propionate [Allergy Relief (fluticasone)] 50 mcg/actuation spra y,suspension 1 spray intranasal DAILY Rx Instructions: administer into each nostril meclizine 25 mg tablet 25 mg PO DAILY PRN (Reason: dizziness) omeprazole 40 mg capsule,delayed release(DR/EC) 40 mg PO BID 30 Days Qty: 60 4RF Linzess 145 mcg capsule 145 mcg PO DAILY Qty: 30 2RF lisinopril 5 mg tablet 5 mg PO DAILY aspirin 81 mg tablet,delayed release (DR/EC) 81 mg PO DAILY simethicone [Gas Relief (simethicone)] 180 mg capsule 180 mg PO BID PRN (Reason: abdominal distention) Qty: 60 1RF famotidine 40 mg tablet 40 mg PO BEDTIME Qty: 30 3RF lidocaine 5 % adhesive patch,medicated 0 patch topical levetiracetam 750 mg tablet 1,500 mg PO BID Print Language: Faroese
--- NOTE | 2022-05-01 08:38 | ECG_ITS ---
Test Reason : CHEST PAIN Blood Pressure : / mmHG Vent. Rate : 090 BPM Atrial Rate : 090 BPM P-R Int : 184 ms QRS Dur : 088 ms QT Int : 358 ms P-R-T Axes : 027 005 037 degrees QTc Int : 437 ms Normal sinus rhythm Normal ECG When compared with ECG of 18-SEP-2021 15:45, No significant change was found Referred By: Cathi Campos Electronically Signed By:HERMINIO SZYMANSKI MD
[2022-05-01] MEDS: Acetaminophen 325 MG TABLET 975 MG PO (09:02)
[2022-05-01 09:05] LABS: MANUAL DIFF FLAG NO
[2022-05-01 09:06] LABS: Basophils Absolute Auto 0.1 X10*3/uL (0.0-0.2); Basophils Percent Auto 0.5 % (0-2); Eosinophils Absolute Auto 0.2 X10*3/uL (0.0-0.4); Eosinophils Percent Auto 2.6 % (0-4); Hematocrit 38.7 % (37.0-47.0); Hemoglobin 12.9 g/dl (12.0-16.0); Imm Gran Abs Auto 0.03 X10*3/uL (0.00-0.03); Imm Gran Pct Auto 0.3 % (0.0-0.4); Lymphocytes Absolute Auto 2.2 X10*3/uL (1.2-4.9); Lymphocytes Percent Auto 23.5 % (20-40); Mean Corpuscular HGB Conc 33.3 g/dl (31.0-35.0); Mean Corpuscular Hemoglobin 29.4 pg (27.0-33.0); Mean Corpuscular Volume 88.2 fL (80.0-98.0); Mean Platelet Volume 9.5 fL (9.4-12.3); Monocytes Absolute Auto 0.5 X10*3/uL (0.1-1.2); Monocytes Percent Auto 4.8 % (2-11); Neutrophils Absolute Auto 6.4 x10*3/uL (2.0-8.3); Neutrophils Percent Auto 68.3 % (45-73); Platelet Count 343 X10*3/uL (160-400); Red Blood Count 4.39 X10*6/uL (4.20-5.50); Red Cell Distribution Width 12.3 % (11.0-16.0); White Blood Count 9.3 X10*3/uL (4.8-10.8)
[2022-05-01 09:25] LABS: COVID-19 Test Negative (Negative); IDNOW Serial# 16C4AD1C
[2022-05-01 09:35] LABS: Troponin-I High Sensitivity < 3.5 ng/L (<3.5-17.0)
[2022-05-01 09:36] LABS: Appearance Urine Cloudy; Color Urine Yellow; Glucose Urine UA 500 mg/dL (Negative); Leukocyte Esterase Urine Large (3+) (Negative); Nitrite Urine Negative (Negative); PH 5.5 (5.0-9.0); Specific Gravity - Urine 1.015 (1.005-1.025); UMIC TRIGGER UACC YES; Urine Blood Trace (Negative); Urine Ketones Negative (Negative); Urine Protein Negative (Neg-Trace)
[2022-05-01 09:42] LABS: Ethanol < 10 mg/dL
[2022-05-01 09:43] LABS: Bacteria Urine 4+ (None Seen); Hyaline Casts Urine 0-2 /LPF (0-2); RBC Urine 0-2 /HPF (0-2); UACC Culture Trigger YES; WBC Urine >50 /HPF (0-5)
[2022-05-01 09:45] LABS: Alanine Aminotransferase 11 U/L (0-31); Albumin Level 3.7 g/dL (3.5-5.0); Alkaline Phosphatase 109 U/L (39-117); Anion Gap 13 (12-20); Aspartate Amino Transferase 12 U/L (5-31); Bilirubin Direct 0.2 mg/dL (0.0-0.5); Bilirubin Total 0.7 mg/dL (0.0-1.0); Blood Urea Nitrogen 19 mg/dL (9-16); Calcium 9.2 mg/dL (8.4-10.2); Carbon Dioxide 27 mmol/L (22-29); Chloride 107 mmol/L (96-108); Creatinine Clr Calc Pharmacy 85.9; Estimated Glomerular Filt Rate > 60; Glucose Random 61 mg/dL (60-115); Magnesium 1.9 mg/dL (1.6-2.6); Sodium 143 mmol/L (135-145); Total Protein 6.8 g/dL (6.5-8.0)
[2022-05-01 09:50] LABS: Amphetamine Screen Urine Not Detected (Not Detect); Barbiturates, Urine Not Detected (Not Detect); Benzodiazepines Screen Urine Not Detected (Not Detect); Cannabinoid Screen Urine Not Detected (Not Detect); Cocaine Screen Urine Not Detected (Not Detect); Fentanyl, urine Not Detected (Not Detect); Opiate Screen Urine Not Detected (Not Detect); Phencyclidine Screen Urine Not Detected (Not Detect)
[2022-05-01] MEDS: cefTRIAXone sodium 1 GM in 0.9 % Sodium Chloride 50 ML IV (10:19)
[2022-05-01] MEDS: Ketorolac Tromethamine 30 MG/ML VIAL IVPUSH (10:22)
== END 2022-05-01 12:23 | disposition home or self-care (01) ==
PROVIDERS: Physician Assistant; Emergency Provider Emergency Medicine
DX: R51.9 Headache, unspecified (principal); N39.0 Urinary tract infection, site not specified; B96.20 Unspecified Escherichia coli [E. coli] as the cause of diseases classified elsewhere; B95.1 Streptococcus, group B, as the cause of diseases classified elsewhere; Z20.822 Contact with and (suspected) exposure to COVID-19; I10 Essential (primary) hypertension; E11.9 Type 2 diabetes mellitus without complications; E78.5 Hyperlipidemia, unspecified; Z79.02 Long term (current) use of antithrombotics/antiplatelets; Z79.899 Other long term (current) drug therapy; Z79.82 Long term (current) use of aspirin; Z79.4 Long term (current) use of insulin
CPT/HCPCS: 36415; 71045; 80048; 80076; 80307; 81001; 82077; 83735; 84484; 85025; 87086; 87088; 87147; 87186; 87635; 93005; 96365; 96375; 99284; J0696; J1885

== ENCOUNTER 2022-06-04 10:01 | Emergency (ER) | payer MEDICAID, SELFPAY ==
[2022-06-04 10:24] VITALS: BP 122/80; PULSE 96; RESP 16; TEMP 36.6; O2SAT 96; BMI 27.4
--- NOTE | 2022-06-04 10:40 | ED_ITS ---
HPI - URI/Sore Throat General Chief Complaint: Upper Respiratory Symptoms Stated Complaint: headache, sore throat, cough Time Seen by Provider: 06/04/22 10:13 Source: patient and family Mode of arrival: ambulatory Limitations: no limitations History of Present Illness HPI Narrative: 57 yo female here with sore throat and headache for 1 days. Daughter here with COVID. No cough, rhinorrhea, diff breath, chest pain, vomiting, diarrhea, fevers, neck pain or stiffness. Related Data Home Medications Medication Instructions Recorded Confirmed acetaminophen 500 mg capsule 500 mg PO Q6H PRN 05/22/20 02/12/21 (Mapap (acetaminophen)) atorvastatin 80 mg tablet 80 mg PO DAILY 05/22/20 02/12/21 duloxetine 60 mg capsule,delayed 60 mg PO DAILY 05/22/20 02/12/21 release fluticasone propionate 50 1 spray intranasal DAILY 05/22/20 02/12/21 mcg/actuation nasal spray,suspension (Allergy Relief (fluticasone)) ibuprofen 600 mg tablet 600 mg PO Q8H PRN 05/22/20 02/12/21 levetiracetam 1,000 mg tablet 1,500 mg PO Q12H 05/22/20 02/12/21 meclizine 25 mg tablet 25 mg PO DAILY PRN dizziness 05/22/20 02/12/21 levetiracetam 750 mg tablet 1,500 mg PO BID 06/24/21 lidocaine 5 % topical patch 0 patch topical 06/24/21 aspirin 81 mg tablet,delayed 81 mg PO DAILY 09/22/21 release lisinopril 5 mg tablet 5 mg PO DAILY 09/22/21 Previous Rx's Medication Instructions Recorded omeprazole 40 mg capsule,delayed 40 mg PO BID 30 days #60 caps 05/22/20 release cyclobenzaprine 5 mg tablet 5 mg PO TID PRN muscle spasm #14 07/21/20 tabs lidocaine 4 % topical patch 1 patch topical Q24H PRN pain 10 07/21/20 days lidocaine 4 % topical patch 1 patch topical DAILY PRN pain #10 11/04/20 ea clotrimazole 1 % topical cream 1 appl topical BID PRN Apply to 12/09/20 vaginal rash, external use #15 grams clotrimazole 2 % vaginal cream 1 appful vaginal BEDTIME 3 days 12/09/20 (Clotrimazole 3 Day) #21 grams insulin glargine 100 unit/mL (3 28 unit (0.28 mL) subcut BEDTIME 02/12/21 mL) subcutaneous pen (Lantus 30 days #15 mL Solostar U-100 Insulin) linaclotide 145 mcg capsule 145 mcg PO DAILY #30 caps 04/21/21 (Linzess) benzonatate 100 mg capsule 100 mg PO TID PRN cough #20 caps 05/11/21 (Tessalon Perles) nut.tx.gluc.intol,lac-free,soy 1 ea PO .COMPLEX #237 mL 07/14/21 (Glucerna oral liquid) ondansetron HCl 4 mg tablet 4 mg PO Q6H PRN nausea and 08/31/21 vomiting #10 tabs cholestyramine (with sugar) 4 gram 4 g PO BID #378 grams 09/08/21 oral powder doxycycline hyclate 100 mg capsule 100 mg PO BID 10 days #20 caps 09/18/21 simethicone 180 mg capsule (Gas 180 mg PO BID PRN abdominal 09/22/21 Relief (simethicone)) distention #60 caps prednisone 20 mg tablet 20 mg PO DAILY 12 days #26 tabs 10/05/21 insulin lispro 100 unit/mL See Rx Instructions subcut 10/21/21 subcutaneous pen (Humalog KwikPen .COMPLEX #15 mL (U-100) Insulin) canagliflozin 300 mg tablet 300 mg PO QAM #30 tabs 12/23/21 (Invokana) ezetimibe 10 mg tablet 10 mg PO DAILY #30 tabs 12/23/21 sitagliptin 100 mg tablet (Januvia) 100 mg PO DAILY #30 tabs 12/23/21 cefuroxime axetil 250 mg tablet 250 mg PO Q12H 7 days #14 tabs 03/06/22 cyclobenzaprine 5 mg tablet 5 mg PO BEDTIME PRN muscle spasm 03/06/22 #14 tabs lidocaine 5 % topical patch 1 patch topical DAILY #15 ea 03/06/22 (Lidoderm) cefuroxime axetil 250 mg tablet 250 mg PO BID 6 days #12 tabs 05/01/22 famotidine 40 mg tablet 40 mg PO BEDTIME #30 tabs 05/07/22 Allergies Allergy/AdvReac Type Severity Reaction Status Date / Time No Known Allergies Allergy Verified 06/04/22 10:26 Review of Systems Review of Systems: Yes all other systems are reviewed and are negative Constitutional: Constitutional: Reports no additional constitutional complaints, Denies body ache(s), Denies chills, Denies fever(s), Reports headache(s) and Denies weakness Eyes: Eyes: Reports no additional eye complaints and Denies change in vision ENT: Reports system reviewed and no additional complaints, except as documented, Denies dizziness, Reports headache(s), Denies nasal congestion, Denies nasal discharge, Denies neck pain and Reports sore throat Cardiovascular: Cardiovascular: Reports no additional cardiovascular complaints, Denies chest pain, Denies leg edema and Denies dyspnea Respiratory: Respiratory: Reports no additional respiratory complaints, Denies cough and Denies dyspnea Gastrointestinal: Gastrointestinal: Reports no additional gastrointestinal complaints, Denies abdominal pain, Denies diarrhea, Denies nausea and Denies vomiting Genitourinary: Genitourinary: Reports no additional female genitourinary complaints and Denies urinary incontinence Musculoskeletal: Musculoskeletal: Reports no additional musculoskeletal complaints, Denies back pain, Denies arthralgias, Denies joint swelling, Denies neck pain, Denies numbness and Denies tingling Integumentary/Breasts: Skin/Breast: Reports system reviewed and no additional complaints, except as docu and Denies rash Neurologic: Reports system reviewed and no additional complaints, except as documented, Denies Abnormal speech present, Denies dizziness, Reports headache(s), Denies numbness, Denies tingling and Denies weakness [facility] Past Medical History Attestation statement: The following information was validated with the patient. Source: old records reviewed and nursing notes reviewed Medical History Asthma Depression Diabetes Diabetic retinopathy Epilepsy Essential hypertension Gastroparesis Hyperlipidemia Hyperlipidemia LDL goal <100 Hypertension Type 2 diabetes mellitus with hyperglycemia, with long-term current use of insulin Surgical History H/O section H/O esophagogastroduodenoscopy (03/14/18) History of ankle surgery Hx of colonoscopy (~06/2018) Family History Family History Mother Diabetes Father Diabetes Social History Social History Household Members: Spouse, Children and Caregiver Do you presently have visiting nurse or other home services: Yes ([facility] Visiting nurse. [phone], can call in regrads to patients care.) Alcohol intake: never Patient Tobacco Use Status: Never used Tobacco Advance Directives: No Advance Directives Information Provided: No Physical Exam Vital Signs: Vital Signs: Last Vital Signs Temp 98 F 06/04/22 10:24 Pulse 96 06/04/22 10:24 Resp 16 06/04/22 10:24 BP 122/80 06/04/22 10:24 Pulse Ox 96 06/04/22 10:24 O2 Del Method 06/04/22 10:24 BMI result Body Mass Index 27.4 Const: General: cooperative, healthy appearing, comfortable and no acute distress Orientation/consciousness: patient oriented x3 Limitations: no limitations HEENT: Head: Yes normal to inspection Ears: hearing grossly normal bilaterally and TM's normal bilaterally General nose exam: Normal external nose present Face and sinus: Yes normal facial exam Mouth: Normal oral and palatal mucosa present Throat: Yes posterior oropharynx normal Eyes: General: appearance normal, both eyes and all related structures Pupils: Equal, round and reactive pupils present Neck: Neck: Yes normal visual inspection, Yes full ROM, Yes no lymphadenopathy and Yes no meningeal signs Chest: Chest palpation & inspection: normal inspection of the chest Resp: Effort & Inspection: normal respiratory effort Auscultation: clear to auscultation bilaterally Cardio: Rate: regular rate Rhythm: regular rhythm Peripheral pulses: Peripheral pulses 2+ throughout GI: Inspection: Yes normal to inspection Palpation (GI): Soft to palpation and nontender Auscultation: normal bowel sounds Back/Spine/Pelvis: Thoracic/Lumbar Spine: thoracic and lumbar spine normal to inspection Skin: General skin exam: no rashes or lesions noted Neuro: General: patient oriented x3, no meningeal signs, no focal motor deficits and normal sensation to monofilament Cranial nerves: Yes Equal, round and reactive pupils present Cognition (Neuro): normal cognition Speech: No Abnormal speech present Gait exam (Neuro): Normal gait present Motor exam (neuro): 5/5 motor strength present throughout Extrem: General: Yes normal to inspection, Yes no pedal edema and Yes no calf tenderness Course Course Course Narrative: COVID screen negative. Likely viral syndrome. Overall well appearing. Non toxic. LS CTA. Reviewed worrisome signs.symptoms with patient and when to seek additional care. Comfortable with discgharge home. MDM - URI/Sore Throat MDM Narrative Medical decision making narrative: 57 yo female here with sore throat/headache x 1 day with exposure to COVID. VSS. Nasir send covid testing No fever or meningeal signs to suggest meningitis. Medical Records Attestation: I reviewed the patient's medical records. Lab Data Attestation: I reviewed the patient's lab results. Labs: Lab Results 06/04/22 Range/Units 10:29 COVID-19 ([facility]) Negative (Negative) COVID-19 Clin Com See Note Discharge Plan Discharge Clinical Impression: Viral infection Patient Disposition: Home, Self-Care Instructions: Viral Syndrome (ED) Additional Instructions: Testing for covid is negative Prescriptions: No Action Glucerna Liquid 1 ea PO .COMPLEX Qty: 237 10RF Rx Instructions: 1 ea PO Twice daily; cholestyramine (with sugar) 4 gram powder 4 g PO BID Qty: 378 2RF Rx Instructions: administer w/meal; avoid other meds within 1hr before or 4-6hr after dose insulin lispro [Humalog KwikPen Insulin] 100 unit/mL insulin pen See Rx Instructions subcut .COMPLEX Qty: 15 0RF Rx Instructions: 4 units, plus 1 units for blood glucose >200, +2u for bg >300 subcut; Invokana 300 mg tablet 300 mg PO QAM Qty: 30 0RF Rx Instructions: please send future refills to pcp ezetimibe 10 mg tablet 10 mg PO DAILY Qty: 30 0RF Rx Instructions: please send future refills to pcp Januvia 100 mg tablet 100 mg PO DAILY Qty: 30 0RF Rx Instructions: please send future refills to pcp famotidine 40 mg tablet 40 mg PO BEDTIME Qty: 30 3RF lidocaine 4 % adhesive patch,medicated 1 patch topical Q24H PRN (Reason: pain) 10 Days 0RF Rx Instructions: may leave on for up to 12 hrs cyclobenzaprine 5 mg tablet 5 mg PO TID PRN (Reason: muscle spasm) Qty: 14 0RF lidocaine 4 % adhesive patch,medicated 1 patch topical DAILY PRN (Reason: pain) Qty: 10 0RF Rx Instructions: may leave on for up to 12 hrs Clotrimazole 3 Day 2 % cream 1 appful vaginal BEDTIME 3 Days Qty: 21 0RF clotrimazole 1 % cream 1 appl topical BID PRN (Reason: Apply to vaginal rash, external use) Qty: 15 0RF ondansetron HCl 4 mg tablet 4 mg PO Q6H PRN (Reason: nausea and vomiting) Qty: 10 0RF prednisone 20 mg tablet 20 mg PO DAILY 12 Days Qty: 26 0RF Rx Instructions: Take 3 tablets for 5 days THEN; Take 2 tablets for 4 days THEN; Take 1 tablet for 3 days cefuroxime axetil 250 mg tablet 250 mg PO Q12H 7 Days Qty: 14 0RF lidocaine [Lidoderm] 5 % adhesive patch,medicated 1 patch topical DAILY Qty: 15 0RF Rx Instructions: leave on most painful area for up to 12 hrs cyclobenzaprine 5 mg tablet 5 mg PO BEDTIME PRN (Reason: muscle spasm) Qty: 14 0RF benzonatate [Tessalon Perles] 100 mg capsule 100 mg PO TID PRN (Reason: cough) Qty: 20 0RF doxycycline hyclate 100 mg capsule 100 mg PO BID 10 Days Qty: 20 0RF cefuroxime axetil 250 mg tablet 250 mg PO BID 6 Days Qty: 12 0RF Lantus Solostar U-100 Insulin 100 unit/mL (3 mL) insulin pen 28 unit subcut BEDTIME 30 Days Qty: 15 1RF atorvastatin 80 mg tablet 80 mg PO DAILY duloxetine 60 mg capsule,delayed release(DR/EC) 60 mg PO DAILY ibuprofen 600 mg tablet 600 mg PO Q8H PRN acetaminophen [Mapap (acetaminophen)] 500 mg capsule 500 mg PO Q6H PRN levetiracetam 1,000 mg tablet 1,500 mg PO Q12H fluticasone propionate [Allergy Relief (fluticasone)] 50 mcg/actuation spray,suspension 1 spray intranasal DAILY Rx Instructions: administer into each nostril meclizine 25 mg tablet 25 mg PO DAILY PRN (Reason: dizziness) omeprazole 40 mg capsule,delayed release(DR/EC) 40 mg PO BID 30 Days Qty: 60 4RF Linzess 145 mcg capsule 145 mcg PO DAILY Qty: 30 2RF lisinopril 5 mg tablet 5 mg PO DAILY aspirin 81 mg tablet,delayed release (DR/EC) 81 mg PO DAILY simethicone [Gas Relief (simethicone)] 180 mg capsule 180 mg PO BID PRN (Reason: abdominal distention) Qty: 60 1RF lidocaine 5 % adhesive patch,medicated 0 patch topical levetiracetam 750 mg tablet 1,500 mg PO BID Referrals: Rachael Brown MD [Primary Care Provider] - 1 week
[2022-06-04 11:10] LABS: COVID-19 Test Negative (Negative); IDNOW Serial# 55D5AD1C
== END 2022-06-04 11:29 | disposition home or self-care (01) ==
PROVIDERS: Nurse Practitioner Family; Emergency Provider Emergency Medicine Emergency Medical Services; PCP Internal Medicine
DX: B34.9 Viral infection, unspecified (principal); J02.9 Acute pharyngitis, unspecified; R51.9 Headache, unspecified; Z20.822 Contact with and (suspected) exposure to COVID-19
CPT/HCPCS: 87635; 99282; 99283

== ENCOUNTER 2022-07-05 07:41 | Emergency (ER) | payer MEDICAID, SELFPAY ==
[2022-07-05 07:43] VITALS: BP 153/91; PULSE 97; RESP 20; TEMP 36.1; O2SAT 97; BMI 28.3
--- NOTE | 2022-07-05 08:50 | ED.SKABFB ---
HPI - Skin/Abscess/Foreign Bdy General Chief complaint: Skin/Abscess/Foreign Body Stated complaint: Eyebrow lac Time Seen by Provider: 07/05/22 08:13 Source: patient Mode of arrival: ambulatory Limitations: language barrier (Swiss-speaking, patient preferred to have daughter interpret, declined medical claims assistant) History of Present Illness HPI narrative: Patient is a 57-year-old female who presents to the emergency department for evaluation of a laceration to the forehead. She reports that this morning while cleaning the kitchen a plate slid off of 1 of the cabinet chills and struck in the face. The plate did not shatter, however she did sustain a laceration bleeding was quickly controlled. She denies any headache, vision changes. Denies any loss of consciousness with this head strike. She denies use of anticoagulants, or history of coagulation disorders. She cleaned the area at home with water and peroxide. She presented to the emergency department today to determine whether stitches were needed. Related Data Home Medications Medication Instructions Recorded Confirmed acetaminophen 500 mg capsule 500 mg PO Q6H PRN 05/22/20 02/12/21 (Mapap (acetaminophen)) atorvastatin 80 mg tablet 80 mg PO DAILY 05/22/20 02/12/21 duloxetine 60 mg capsule,delayed 60 mg PO DAILY 05/22/20 02/12/21 release fluticasone propionate 50 1 spray intranasal DAILY 05/22/20 02/12/21 mcg/actuation nasal spray,suspension (Allergy Relief (fluticasone)) ibuprofen 600 mg tablet 600 mg PO Q8H PRN 05/22/20 02/12/21 levetiracetam 1,000 mg tablet 1,500 mg PO Q12H 05/22/20 02/12/21 meclizine 25 mg tablet 25 mg PO DAILY PRN dizziness 05/22/20 02/12/21 levetiracetam 750 mg tablet 1,500 mg PO BID 06/24/21 lidocaine 5 % topical patch 0 patch topical 06/24/21 aspirin 81 mg tablet,delayed 81 mg PO DAILY 09/22/21 release lisinopril 5 mg tablet 5 mg PO DAILY 09/22/21 Previous Rx's Medication Instructions Recorded omeprazole 40 mg capsule,delayed 40 mg PO BID 30 days #60 caps 05/22/20 release cyclobenzaprine 5 mg tablet 5 mg PO TID PRN muscle spasm #14 07/21/20 tabs lidocaine 4 % topical patch 1 patch topical Q24H PRN pain 10 07/21/20 days lidocaine 4 % topical patch 1 patch topical DAILY PRN pain #10 11/04/20 ea clotrimazole 1 % topical cream 1 appl topical BID PRN Apply to 12/09/20 vaginal rash, external use #15 grams clotrimazole 2 % vaginal cream 1 appful vaginal BEDTIME 3 days 12/09/20 (Clotrimazole 3 Day) #21 grams insulin glargine 100 unit/mL (3 28 unit (0.28 mL) subcut BEDTIME 02/12/21 mL) subcutaneous pen (Lantus 30 days #15 mL Solostar U-100 Insulin) linaclotide 145 mcg capsule 145 mcg PO DAILY #30 caps 04/21/21 (Linzess) benzonatate 100 mg capsule 100 mg PO TID PRN cough #20 caps 05/11/21 (Tessalon Perles) nut.tx.gluc.intol,lac-free,soy 1 ea PO .COMPLEX #237 mL 07/14/21 (Glucerna oral liquid) ondansetron HCl 4 mg tablet 4 mg PO Q6H PRN nausea and 08/31/21 vomiting #10 tabs cholestyramine (with sugar) 4 gram 4 g PO BID #378 grams 09/08/21 oral powder doxycycline hyclate 100 mg capsule 100 mg PO BID 10 days #20 caps 09/18/21 simethicone 180 mg capsule (Gas 180 mg PO BID PRN abdominal 09/22/21 Relief (simethicone)) distention #60 caps prednisone 20 mg tablet 20 mg PO DAILY 12 days #26 tabs 10/05/21 insulin lispro 100 unit/mL See Rx Instructions subcut 10/21/21 subcutaneous pen (Humalog KwikPen .COMPLEX #15 mL (U-100) Insulin) canagliflozin 300 mg tablet 300 mg PO QAM #30 tabs 12/23/21 (Invokana) ezetimibe 10 mg tablet 10 mg PO DAILY #30 tabs 12/23/21 sitagliptin phosphate 100 mg 100 mg PO DAILY #30 tabs 12/23/21 tablet (Januvia) cefuroxime axetil 250 mg tablet 250 mg PO Q12H 7 days #14 tabs 03/06/22 cyclobenzaprine 5 mg tablet 5 mg PO BEDTIME PRN muscle spasm 03/06/22 #14 tabs lidocaine 5 % topical patch 1 patch topical DAILY #15 ea 03/06/22 (Lidoderm) cefuroxime axetil 250 mg tablet 250 mg PO BID 6 days #12 tabs 05/01/22 famotidine 40 mg tablet 40 mg PO BEDTIME #30 tabs 05/07/22 Allergies Allergy/AdvReac Type Severity Reaction Status Date / Time No Known Allergies Allergy Verified 06/04/22 10:26 Review of Systems Review of Systems: Skin: Positive laceration as noted in HPI Yes all other systems are reviewed and are negative PMFSH Past Medical History Attestation statement: The following information was validated with the patient. Source: old records reviewed Medical History Asthma Depression Diabetes Diabetic retinopathy Epilepsy Essential hypertension Gastroparesis Hyperlipidemia Hyperlipidemia LDL goal <100 Hypertension Type 2 diabetes mellitus with hyperglycemia, with long-term current use of insulin Surgical History H/O section H/O esophagogastroduodenoscopy (03/14/18) History of ankle surgery Hx of colonoscopy (~06/2018) Family History Family History Mother Diabetes Father Diabetes Social History Social History Household Members: Spouse, Children and Caregiver Do you presently have visiting nurse or other home services: Yes ([facility] Visiting nurse. [phone], can call in regrads to patients care.) Alcohol intake: never Patient Tobacco Use Status: Never used Tobacco Advance Directives: No Advance Directives Information Provided: No Physical Exam Vital Signs: Vital Signs: Last Vital Signs Temp 96.9 F 07/05/22 07:43 Pulse 97 07/05/22 07:43 Resp 20 07/05/22 07:43 BP 153/91 H 07/05/22 07:43 Pulse Ox 97 07/05/22 07:43 O2 Del Method 07/05/22 07:43 BMI result Body Mass Index 28.3 Appearance: Alert.?Oriented to person, place and time. No acute distress.?Normal affect. Eyes: Pupils equal, round and reactive to light.? EOMI. ENT: Pharynx normal.?? Neck: Normal inspection.? Neck supple.?? CVS: Heart sounds normal. Normal heart rate and rhythm.? Pulses normal.?? Respiratory: No respiratory distress.? Lung sounds clear to auscultation bilaterally?? Abdomen: Soft and non-tender. Normoactive bowel sounds. ? Skin: Skin warm and dry.? Normal skin color.? Medial to the right brow at midline there are 3 linear 0.5 cm superficial lacerations, bleeding controlled currently. Extremities: No lower extremity edema.? Neuro: Moves all extremities spontaneously. Sensation intact bilaterally. No focal neuro deficits. Ambulates with normal steady gait. Medical Decision Making Medical Decision Making MDM Narrative: Patient is a 57-year-old female who presents to emergency department for evaluation of a laceration to her brow line. No loss of consciousness with this head injury, no use of anticoagulants. No focal neurological deficits. At this time no indication for head CT. Lacerations are superficial, cleansed with normal saline, adhesive skin glue utilized for closure, lacerations not deep enough to require suture repair. Discussed worrisome signs and symptoms to return back to the emergency department for evaluation of, including signs of infection. Patient verbalized understanding. Advised outpatient follow-up with primary care provider as needed. She was discharged in stable condition, ambulatory with a steady gait. Tests considered The following testing was considered but not selected: CT of the head considered given head injury, however given mechanism of injury, no loss of consciousness, no use of anticoagulants or history of coagulation disorder, no focal neurological deficits, CT was deferred Discharge Plan Discharge Clinical Impression: Laceration of face Patient Disposition: Home, Self-Care Instructions: Laceration (ED), Skin Adhesive Care (ED) Additional Instructions: As discussed, avoid touching this area for 24 hours, do not get the area wet for 48 hours. The glue will come off on its own. If you develop redness, swelling, fevers, chills, pus-like drainage then this should be re-evaluated. Contact your primary care provider to arrange for follow-up as needed. Return to the emergency department with any new or worsening symptoms or concerns. Prescriptions: No Action Glucerna Liquid 1 ea PO .COMPLEX Qty: 237 10RF Rx Instructions: 1 ea PO Twice daily; cholestyramine (with sugar) 4 gram powder 4 g PO BID Qty: 378 2RF Rx Instructions: administer w/meal; avoid other meds within 1hr before or 4-6hr after dose insulin lispro [Humalog KwikPen Insulin] 100 unit/mL insulin pen See Rx Instructions subcut .COMPLEX Qty: 15 0RF Rx Instructions: 4 units, plus 1 units for blood glucose >200, +2u for bg >300 subcut; Invokana 300 mg tablet 300 mg PO QAM Qty: 30 0RF Rx Instructions: please send future refills to pcp ezetimibe 10 mg tablet 10 mg PO DAILY Qty: 30 0RF Rx Instructions: please send future refills to pcp Januvia 100 mg tablet 100 mg PO DAILY Qty: 30 0RF Rx Instructions: please send future refills to pcp famotidine 40 mg tablet 40 mg PO BEDTIME Qty: 30 3RF lidocaine 4 % adhesive patch,medicated 1 patch topical Q24H PRN (Reason: pain) 10 Days 0RF Rx Instructions: may leave on for up to 12 hrs cyclobenzaprine 5 mg tablet 5 mg PO TID PRN (Reason: muscle spasm) Qty: 14 0RF lidocaine 4 % adhesive patch,medicated 1 patch topical DAILY PRN (Reason: pain) Qty: 10 0RF Rx Instructions: may leave on for up to 12 hrs Clotrimazole 3 Day 2 % cream 1 appful vaginal BEDTIME 3 Days Qty: 21 0RF clotrimazole 1 % cream 1 appl topical BID PRN (Reason: Apply to vaginal rash, external use) Qty: 15 0RF ondansetron HCl 4 mg tablet 4 mg PO Q6H PRN (Reason: nausea and vomiting) Qty: 10 0RF prednisone 20 mg tablet 20 mg PO DAILY 12 Days Qty: 26 0RF Rx Instructions: Take 3 tablets for 5 days THEN; Take 2 tablets for 4 days THEN; Take 1 tablet for 3 days cefuroxime axetil 250 mg tablet 250 mg PO Q12H 7 Days Qty: 14 0RF lidocaine [Lidoderm] 5 % adhesive patch,medicated 1 patch topical DAILY Qty: 15 0RF Rx Instructions: leave on most painful area for up to 12 hrs cyclobenzaprine 5 mg tablet 5 mg PO BEDTIME PRN (Reason: muscle spasm) Qty: 14 0RF benzonatate [Tessalon Perles] 100 mg capsule 100 mg PO TID PRN (Reason: cough) Qty: 20 0RF doxycycline hyclate 100 mg capsule 100 mg PO BID 10 Days Qty: 20 0RF cefuroxime axetil 250 mg tablet 250 mg PO BID 6 Days Qty: 12 0RF Lantus Solostar U-100 Insulin 100 unit/mL (3 mL) insulin pen 28 unit subcut BEDTIME 30 Days Qty: 15 1RF atorvastatin 80 mg tablet 80 mg PO DAILY duloxetine 60 mg capsule,delayed release(DR/EC) 60 mg PO DAILY ibuprofen 600 mg tablet 600 mg PO Q8H PRN acetaminophen [Mapap (acetaminophen)] 500 mg capsule 500 mg PO Q6H PRN levetiracetam 1,000 mg tablet 1,500 mg PO Q12H fluticasone propionate [Allergy Relief (fluticasone)] 50 mcg/actuation spray,suspension 1 spray intranasal DAILY Rx Instructions: administer into each nostril meclizine 25 mg tablet 25 mg PO DAILY PRN (Reason: dizziness) omeprazole 40 mg capsule,delayed release(DR/EC) 40 mg PO BID 30 Days Qty: 60 4RF Linzess 145 mcg capsule 145 mcg PO DAILY Qty: 30 2RF lisinopril 5 mg tablet 5 mg PO DAILY aspirin 81 mg tablet,delayed release (DR/EC) 81 mg PO DAILY simethicone [Gas Relief (simethicone)] 180 mg capsule 180 mg PO BID PRN (Reason: abdominal distention) Qty: 60 1RF lidocaine 5 % adhesive patch,medicated 0 patch topical levetiracetam 750 mg tablet 1,500 mg PO BID Referrals: Rachael Brown MD [Primary Care Provider] - Interventions: ED Discharge Assessment Last Done: 07/05/22 09:13 Discharge Date/Time: 07/05/22 09:14
== END 2022-07-05 09:14 | disposition home or self-care (01) ==
PROVIDERS: Emergency Provider Emergency Medicine; PCP Internal Medicine
DX: S01.111A Laceration without foreign body of right eyelid and periocular area, initial encounter (principal); W20.8XXA Other cause of strike by thrown, projected or falling object, initial encounter; Y93.G1 Activity, food preparation and clean up; Y92.030 Kitchen in apartment as the place of occurrence of the external cause; Y99.9 Unspecified external cause status
CPT/HCPCS: 99283

== ENCOUNTER 2022-08-11 09:12 | Emergency (ER) | payer OTHER, MEDICAID, SELFPAY ==
--- NOTE | ~2022-08-11 | CT_ITS ---
Indication: Seizure, fall EXAMINATION: CT brain, CT cervical spine. Axial imaging with coronal and sagittal reformatted images. This CT examination was performed using dose optimization techniques as appropriate, variously including the following: *Automated exposure control *Adjustment of mA and/or kV according to patient size (this includes techniques or standardized protocols for targeted exams where dose is matched to indication/reason for exam; i.e. extremities or head) *Use of iterative reconstruction technique. Comparison previous dated 08/27/2016 and 08/29/2019 CT cervical spine; No acute fracture or dislocation. Some degenerative changes are noted. Radiation dose [address] brain; There is no midline shift. There is no mass effect. There is no hemorrhage. The basal cisterns appear patent. The posterior fossa is grossly within normal limits. No extra-axial collection is seen. There is evidence of white matter ischemic change. No fracture on the bone windows. CT/CT cervical spine wo IV con IMPRESSION: Negative acute noncontrast CT of the brain. No fracture or dislocation of the cervical spine.
--- NOTE | ~2022-08-11 | CT_ITS ---
Indication: Seizure, fall EXAMINATION: CT brain, CT cervical spine. Axial imaging with coronal and sagittal reformatted images. This CT examination was performed using dose optimization techniques as appropriate, variously including the following: *Automated exposure control *Adjustment of mA and/or kV according to patient size (this includes techniques or standardized protocols for targeted exams where dose is matched to indication/reason for exam; i.e. extremities or head) *Use of iterative reconstruction technique. Comparison previous dated 08/27/2016 and 08/29/2019 CT cervical spine; No acute fracture or dislocation. Some degenerative changes are noted. Radiation dose [address] brain; There is no midline shift. There is no mass effect. There is no hemorrhage. The basal cisterns appear patent. The posterior fossa is grossly within normal limits. No extra-axial collection is seen. There is evidence of white matter ischemic change. No fracture on the bone windows. CT/CT head/brain wo IV con IMPRESSION: Negative acute noncontrast CT of the brain. No fracture or dislocation of the cervical spine.
[2022-08-11 09:20] VITALS: BP 188/114; PULSE 106; O2SAT 99
[2022-08-11 09:23] VITALS: BP 188/109; PULSE 109; RESP 19; TEMP 36.8; O2SAT 98; BMI 28.6
--- NOTE | 2022-08-11 09:38 | ECG_ITS ---
Test Reason : SEIZURE Blood Pressure : / mmHG Vent. Rate : 111 BPM Atrial Rate : 111 BPM P-R Int : 138 ms QRS Dur : 070 ms QT Int : 322 ms P-R-T Axes : 051 018 052 degrees QTc Int : 437 ms Artifact in tracing Sinus tachycardia Otherwise normal ECG When compared with ECG of 01-MAY-2022 08:34, No significant change was found Referred By: Rosana Madera Electronically Signed By:Barber Huddleston
[2022-08-11 10:01] LABS: Glucose, Whole Blood 230 mg/dL (60-115)
--- NOTE | 2022-08-11 10:07 | ED_ITS ---
HPI - Seizure General Chief Complaint: Seizure Stated Complaint: Seizure per EMS Time Seen by Provider: 08/11/22 09:31 Source: patient, family (Daughter, seafood preparer) and seismic interpreter Mode of arrival: EMS History of Present Illness HPI Narrative: This is a 57-year-old female with diabetes, hypertension, seizure disorder, taking Keppra who is brought in by EMS after a witnessed tonic clonic seizure by her daughter involved a fall with head strike to the back of the head. Patient is not hypoglycemic as per EMS, patient is stating thoughts of self-harm due to a break-up and has not taken her medications this morning to include has not taken her seizure medications. Related Data Home Medications Medication Instructions Recorded Confirmed acetaminophen 325 mg tablet 650 mg PO Q6H PRN Pain 08/11/22 08/11/22 amitriptyline 10 mg tablet 40 mg PO DAILY 08/11/22 08/11/22 aspirin 81 mg tablet,delayed 1 tab PO DAILY 08/11/22 08/11/22 release atorvastatin 40 mg tablet 40 mg PO BEDTIME 08/11/22 08/11/22 canagliflozin 300 mg tablet 1 tab PO QAM 08/11/22 08/11/22 (Invokana) cyclobenzaprine 10 mg tablet 10 mg PO DAILY 08/11/22 08/11/22 docusate sodium 100 mg capsule 100 mg PO BID PRN Constipation 08/11/22 08/11/22 duloxetine 30 mg capsule,delayed 1 cap PO DAILY 08/11/22 08/11/22 release ezetimibe 10 mg tablet 1 tab PO DAILY 08/11/22 08/11/22 fluticasone propionate 50 1 spray intranasal DAILY PRN 08/11/22 08/11/22 mcg/actuation nasal Congestion spray,suspension insulin glargine 100 unit/mL (3 25 unit subcut BEDTIME 08/11/22 08/11/22 mL) subcutaneous pen (Lantus Solostar U-100 Insulin) insulin glargine 100 unit/mL (3 45 unit subcut DAILY 08/11/22 08/11/22 mL) subcutaneous pen (Lantus Solostar U-100 Insulin) insulin lispro 100 unit/mL 5 - 10 unit subcut TID 08/11/22 08/11/22 subcutaneous pen levetiracetam 1,000 mg tablet 2 tab PO BID 08/11/22 08/11/22 lidocaine 5 % topical patch 1 patch topical DAILY 08/11/22 08/11/22 lisinopril 5 mg tablet 1 tab PO DAILY 08/11/22 08/11/22 meloxicam 15 mg tablet 1 tab PO DAILY 08/11/22 08/11/22 metoclopramide HCl 5 mg tablet 1 tab PO QID 08/11/22 08/11/22 naproxen 500 mg tablet 500 mg PO BID PRN Pain 08/11/22 08/11/22 omega 9-ukb-hbk-fish oil 1,000 mg 1 cap PO DAILY 08/11/22 08/11/22 (120 mg-180 mg) capsule (Fish Oil) omeprazole 20 mg capsule,delayed 20 mg PO BID@0630,1630 08/11/22 08/11/22 release ondansetron HCl 4 mg tablet 4 mg PO Q8H PRN Nausea 08/11/22 08/11/22 sitagliptin phosphate 100 mg 1 tab PO DAILY 08/11/22 08/11/22 tablet (Januvia) sucralfate 100 mg/mL oral 10 ml PO DAILY@1700 08/11/22 08/11/22 suspension Allergies Allergy/AdvReac Type Severity Reaction Status Date / Time No Known Allergies Allergy Verified 06/04/22 10:26 Review of Systems Review of Systems: Pertinent positives and negatives as stated in HPI [facility] Past Medical History Source: nursing notes reviewed Medical History Asthma Depression Diabetes Diabetic retinopathy Epilepsy Essential hypertension Gastroparesis Hyperlipidemia Hyperlipidemia LDL goal <100 Hypertension Type 2 diabetes mellitus with hyperglycemia, with long-term current use of insulin Surgical History H/O section H/O esophagogastroduodenoscopy (03/14/18) History of ankle surgery Hx of colonoscopy (~06/2018) Family History Family History Mother Diabetes Father Diabetes Social History Social History Household Members: Spouse, Children and Caregiver Do you presently have visiting nurse or other home services: Yes ([facility] Visiting nurse. [phone], can call in regrads to patients care.) Alcohol intake: never Patient Tobacco Use Status: Never used Tobacco Advance Directives: No Advance Directives Information Provided: Yes Physical Exam Vital Signs: Vital Signs: Last Vital Signs Temp 98.2 F 08/11/22 09:23 Pulse 102 H 08/11/22 11:58 Resp 18 08/11/22 11:58 BP 135/82 08/11/22 11:58 Pulse Ox 95 08/11/22 11:58 O2 Del Method 08/11/22 11:58 BMI result Body Mass Index 28.6 VITAL SIGNS: Reviewed. GENERAL: Well developed, well nourished, in no acute distress. HEAD: Normocephalic/atraumatic EYES: PERRLA, EOMI EARS: Ext canals without abnormality OROPHARYNX: no oral lesions noted, posterior pharynx clear NECK: Cervical collar in place, no adenopathy, there is midline cervical spine tenderness LUNGS: Normal breath sounds. No adventitious sounds or accessory muscle use. SpO2<98>; no chest wall tenderness CARDIOVASCULAR: Regular rate and rhythm without noted murmurs, no JVD or lower extremity edema. ABDOMEN: Soft, non-tender, non-distended with bowel sounds. MUSCULOSKELETAL: No tenderness, deformities, or effusions noted on gross inspection. EXTREMITIES: No cyanosis, clubbing or edema. SKIN: Inspection of the skin reveals no rashes NEUROLOGIC: Alert and oriented x 3. Strength and sensation to light touch were grossly intact x 4, cranial nerves 2-12 are grossly intact. Medications Administered Discontinued Medications Generic Name Dose Route Start Last Admin Trade Name Freq PRN Reason Stop Dose Admin Levetiracetam 1,000 mg in 100 mls @ 400 mls/hr 08/11/22 10:06 08/11/22 13:01 Keppra IV 08/11/22 10:20 Infused ONCE ONE Infusion Sodium Chloride 1,000 mls @ 999 mls/hr 08/11/22 12:15 08/11/22 12:31 Ns IV 08/11/22 13:15 999 mls/hr .Q1H1M AMINTA Administration Medical Decision Making Medical Decision Making MDM Narrative: 57-year-old female currently going through a break-up, did not take any of her medications to include no anti seizure medication, appears to have had a breakthrough seizure but is also suicidal. Labs, toxicology, Keppra load. Review of all investigations my interpretation is that patient may have had a breakthrough seizure due to missed seizure medications, Keppra level still pending, otherwise no evidence of acute infection, anemia, electrolyte abnormality. Patient is otherwise medically cleared for further evaluation by the care team despite urinalysis/U tox still pending which will be followed. Differential Diagnosis Differential Diagnoses: The differential diagnosis associated with the presentation includes Please see the discussion above Consult Healthcare Provider Management of the patient was discussed with: [facility] Care team Lab Data MDM Lab Attestation statement: I reviewed the patient's lab results. Please see the discussion above 08/11/22 10:33 08/11/22 10:33 Labs: Lab Results 08/11/22 08/11/22 08/11/22 Range/Units 09:56 10:33 10:33 WBC 7.8 (4.8-10.8) X10*3/uL RBC 4.66 (4.20-5.50) X10*6/uL Hgb 13.6 (12.0-16.0) g/dl Hct 41.0 (37.0-47.0) % MCV 88.0 (80.0-98.0) fL MCH 29.2 (27.0-33.0) pg MCHC 33.2 (31.0-35.0) g/dl RDW 11.9 (11.0-16.0) % Plt Count 274 (160-400) X10*3/uL MPV 9.9 (9.4-12.3) fL Immature Gran % (Auto) 0.4 (0.0-0.4) % Neut % (Auto) 76.7 H (45-73) % Lymph % (Auto) 15.7 L (20-40) % [place] % (Auto) 4.6 (2-11) % Eos % (Auto) 2.2 (0-4) % Baso % (Auto) 0.4 (0-2) % Lymph # (Auto) 1.2 (1.2-4.9) X10*3/uL [place] # (Auto) 0.4 (0.1-1.2) X10*3/uL Eos # (Auto) 0.2 (0.0-0.4) X10*3/uL Baso # (Auto) 0.0 (0.0-0.2) X10*3/uL Abs Immat Gran (auto) 0.03 (0.00-0.03) X10*3/uL Absolute Neuts (auto) 6.0 (2.0-8.3) x10*3/uL Absolute Nucleated RBC 0.000 (0.0-0.012) X10*3/uL Nucleated RBC % (auto) 0.0 (0.0-0.2) /100WBC PT (10.0-13.1) SEC INR (0.9-1.1) Sodium 142 (135-145) mmol/L Potassium 4.5 (3.3-5.1) mmol/L Chloride 104 (96-108) mmol/L Carbon Dioxide 28 (22-29) mmol/L Anion Gap 15 (12-20) BUN 19 H (9-16) mg/dL Creatinine 0.82 (0.5-1.4) mg/dL Estim Creat Clear Calc 70.6 Estimated GFR > 60 POC Glucose 230 H (60-115) mg/dL Random Glucose 227 H (60-115) mg/dL Calcium 9.7 (8.4-10.2) mg/dL Total Bilirubin 1.6 H (0.0-1.0) mg/dL AST 12 (5-31) U/L ALT 11 (0-31) U/L Alkaline Phosphatase 125 H (39-117) U/L Troponin I High Sens (<3.5-17.0) ng/L Total Protein 6.8 (6.5-8.0) g/dL Albumin 3.8 (3.5-5.0) g/dL Salicylates < 5.0 L (15-30) mg/dL Acetaminophen < 17 (<30) mcg/mL COVID-19 ([facility]) (Negative) COVID-19 Clin Com 08/11/22 08/11/22 08/11/22 Range/Units 10:33 10:33 10:33 WBC (4.8-10.8) X10*3/uL RBC (4.20-5.50) X10*6/uL Hgb (12.0-16.0) g/dl Hct (37.0-47.0) % MCV (80.0-98.0) fL MCH (27.0-33.0) pg MCHC (31.0-35.0) g/dl RDW (11.0-16.0) % Plt Count (160-400) X10*3/uL MPV (9.4-12.3) fL Immature Gran % (Auto) (0.0-0.4) % Neut % (Auto) (45-73) % Lymph % (Auto) (20-40) % Livingston % (Auto) (2-11) % Eos % (Auto) (0-4) % Baso % (Auto) (0-2) % Lymph # (Auto) (1.2-4.9) X10*3/uL [place] # (Auto) (0.1-1.2) X10*3/uL Eos # (Auto) (0.0-0.4) X10*3/uL Baso # (Auto) (0.0-0.2) X10*3/uL Abs Immat Gran (auto) (0.00-0.03) X10*3/uL Absolute Neuts (auto) (2.0-8.3) x10*3/uL Absolute Nucleated RBC (0.0-0.012) X10*3/uL Nucleated RBC % (auto) (0.0-0.2) /100WBC PT 11.9 (10.0-13.1) SEC INR 1.0 (0.9-1.1) Sodium (135-145) mmol/L Potassium (3.3-5.1) mmol/L Chloride (96-108) mmol/L Carbon Dioxide (22-29) mmol/L Anion Gap (12-20) BUN (9-16) mg/dL Creatinine (0.5-1.4) mg/dL Estim Creat Clear Calc Estimated GFR POC Glucose (60-115) mg/dL Random Glucose (60-115) mg/dL Calcium (8.4-10.2) mg/dL Total Bilirubin (0.0-1.0) mg/dL AST (5-31) U/L ALT (0-31) U/L Alkaline Phosphatase (39-117) U/L Troponin I High Sens 3.4 (<3.5-17.0) ng/L Total Protein (6.5-8.0) g/dL Albumin (3.5-5.0) g/dL Salicylates (15-30) mg/dL Acetaminophen (<30) mcg/mL COVID-19 ([facility]) Negative (Negative) COVID-19 Clin Com See Note Independent Interpretation I performed an independent interpretation of an: EKG Interpretation: Sinus tachycardia, HR-111, no STEMI, WV/QRS/QTC is within normal limits. Chronic Conditions Patient?s care impacted by: Diabetes Critical Care Time Critical Care Time Critical Care Time: Yes Total Critical Care Time: 45 Attestation: I personally attest to this time spent taking care of the patient. Discharge Plan Discharge Clinical Impression: Seizure, Suicidal ideation Patient Disposition: Still a Patient Prescriptions: No Action meloxicam 15 mg tablet 1 tab PO DAILY aspirin 81 mg tablet,delayed release (DR/EC) 1 tab PO DAILY amitriptyline 10 mg tablet 40 mg PO DAILY lisinopril 5 mg tablet 1 tab PO DAILY insulin lispro 100 unit/mL insulin pen 5 - 10 unit subcut TID Rx Instructions: 5 units if BG <250, 10 units if Bg > 250 ezetimibe 10 mg tablet 1 tab PO DAILY duloxetine 30 mg capsule,delayed release(DR/EC) 1 cap PO DAILY levetiracetam 1,000 mg tablet 2 tab PO BID Januvia 100 mg tablet 1 tab PO DAILY insulin glargine [Lantus Solostar U-100 Insulin] 100 unit/mL (3 mL) insulin pen 25 unit subcut BEDTIME insulin glargine [Lantus Solostar U-100 Insulin] 100 unit/mL (3 mL) insulin pen 45 unit subcut DAILY Invokana 300 mg tablet 1 tab PO QAM atorvastatin 40 mg Tablet 40 mg PO BEDTIME acetaminophen 325 mg Tablet 650 mg PO Q6H PRN (Reason: Pain) cyclobenzaprine 10 mg Tablet 10 mg PO DAILY sucralfate 100 mg/mL Suspension 10 ml PO DAILY@1700 ondansetron HCl [Zofran] 4 mg Tablet 4 mg PO Q8H PRN (Reason: Nausea) metoclopramide HCl 5 mg tablet 1 tab PO QID lidocaine 5 % Adhesive Patch,Medicated 1 patch TOPICAL DAILY Rx Instructions: leave on most painful area for up to 12 hrs docusate sodium 100 mg Capsule 100 mg PO BID PRN (Reason: Constipation) omeprazole 20 mg Capsule,Delayed Release(Dr/Ec) 20 mg PO BID@0630,1630 fluticasone propionate [Flonase] 50 mcg/actuation [place],Suspension 1 spray INTRANASAL DAILY PRN (Reason: Congestion) Rx Instructions: administer into each nostril naproxen 500 mg Tablet 500 mg PO BID PRN (Reason: Pain) omega 3-krd-hzb-fish oil [Fish Oil] 1,000 mg (120 mg-180 mg) Capsule 1 cap PO DAILY
[2022-08-11] MEDS: levETIRAcetam in NaCl (iso-os) 1,000 MG/100 ML PIGGYBACK 400 MG IV (10:20)
[2022-08-11 10:44] LABS: MANUAL DIFF FLAG NO
[2022-08-11 10:48] LABS: Basophils Percent Auto 0.4 % (0-2); Eosinophils Absolute Auto 0.2 X10*3/uL (0.0-0.4); Eosinophils Percent Auto 2.2 % (0-4); Hemoglobin 13.6 g/dl (12.0-16.0); Imm Gran Abs Auto 0.03 X10*3/uL (0.00-0.03); Imm Gran Pct Auto 0.4 % (0.0-0.4); Lymphocytes Absolute Auto 1.2 X10*3/uL (1.2-4.9); Lymphocytes Percent Auto 15.7 % (20-40); Mean Corpuscular HGB Conc 33.2 g/dl (31.0-35.0); Mean Corpuscular Hemoglobin 29.2 pg (27.0-33.0); Mean Platelet Volume 9.9 fL (9.4-12.3); Monocytes Absolute Auto 0.4 X10*3/uL (0.1-1.2); Monocytes Percent Auto 4.6 % (2-11); Neutrophils Percent Auto 76.7 % (45-73); Platelet Count 274 X10*3/uL (160-400); Red Blood Count 4.66 X10*6/uL (4.20-5.50); Red Cell Distribution Width 11.9 % (11.0-16.0); White Blood Count 7.8 X10*3/uL (4.8-10.8)
[2022-08-11 10:53] LABS: Prothrombin Time 11.9 SEC (10.0-13.1)
[2022-08-11 11:03] LABS: COVID-19 Test Negative (Negative); IDNOW Serial# 16C4AD1C
[2022-08-11 11:05] LABS: Acetaminophen LAB < 17 mcg/mL (<30); Alanine Aminotransferase 11 U/L (0-31); Albumin Level 3.8 g/dL (3.5-5.0); Alkaline Phosphatase 125 U/L (39-117); Anion Gap 15 (12-20); Aspartate Amino Transferase 12 U/L (5-31); Bilirubin Total 1.6 mg/dL (0.0-1.0); Blood Urea Nitrogen 19 mg/dL (9-16); Calcium 9.7 mg/dL (8.4-10.2); Carbon Dioxide 28 mmol/L (22-29); Chloride 104 mmol/L (96-108); Creatinine Clr Calc Pharmacy 70.6; Estimated Glomerular Filt Rate > 60; Glucose Random 227 mg/dL (60-115); Potassium 4.5 mmol/L (3.3-5.1); Salicylate < 5.0 mg/dL (15-30); Sodium 142 mmol/L (135-145); Total Protein 6.8 g/dL (6.5-8.0)
[2022-08-11 11:10] LABS: Troponin-I High Sensitivity 3.4 ng/L (<3.5-17.0)
--- NOTE | 2022-08-11 11:24 | PHA.MEDREC ---
Pharmacy Consult ? Medication Reconciliation Pharmacy has completed the medication reconciliation. Called patient's [employer]SEMBLER Rosalio ([phone]) who directed me to call Melissa Byrd ([phone]) for current med list. Spoke to Gayla who faxed over list that she noted was updated from last week.
[2022-08-11 11:55] VITALS: PULSE 100; RESP 18; O2SAT 96
[2022-08-11 11:58] VITALS: BP 135/82; PULSE 102; RESP 18; O2SAT 95
[2022-08-11] MEDS: 0.9 % Sodium Chloride 1,000 ML 999 ML IV (12:31)
[2022-08-11 15:47] VITALS: BP 142/84; PULSE 97; RESP 16; O2SAT 98
--- NOTE | 2022-08-11 15:59 | PC.NURSE ---
report received from SRI Mehta. Pt is Grenadian speaking only Pt is resting on stretcher, seizure precautions in place. Pt has 1:[address] Pt reports dysuria and burning when urinating. Pt provided with fluids. is aware
[2022-08-11 16:38] LABS: Alanine Aminotransferase 11 U/L (0-31); Albumin Level 3.4 g/dL (3.5-5.0); Alkaline Phosphatase 113 U/L (39-117); Anion Gap 10 (12-20); Aspartate Amino Transferase 14 U/L (5-31); Bilirubin Total 1.4 mg/dL (0.0-1.0); Blood Urea Nitrogen 17 mg/dL (9-16); Calcium 8.8 mg/dL (8.4-10.2); Carbon Dioxide 26 mmol/L (22-29); Chloride 109 mmol/L (96-108); Creatinine Clr Calc Pharmacy 77.3; Estimated Glomerular Filt Rate > 60; Glucose Random 226 mg/dL (60-115); Potassium 4.1 mmol/L (3.3-5.1); Sodium 141 mmol/L (135-145); Total Protein 6.2 g/dL (6.5-8.0)
[2022-08-11 17:04] LABS: Appearance Urine Cloudy; Color Urine Yellow; Glucose Urine UA 100 mg/dL (Negative); Leukocyte Esterase Urine Small (1+) (Negative); Nitrite Urine Negative (Negative); PH 5.5 (5.0-9.0); Specific Gravity - Urine 1.015 (1.005-1.025); UMIC TRIGGER UACC YES; Urine Blood Negative (Negative); Urine Ketones 15 mg/dL (Negative); Urine Protein 30 (1+) mg/dL (Neg-Trace)
[2022-08-11 17:06] LABS: Bacteria Urine 4+ (None Seen); Hyaline Casts Urine 0-2 /LPF (0-2); RBC Urine 0-2 /HPF (0-2); UACC Culture Trigger YES
--- NOTE | 2022-08-11 17:06 | MHC.CARE ---
Pt information faxed to [facility]
--- NOTE | 2022-08-11 17:21 | MHC.CARE ---
Referral submitted for [facility]
--- NOTE | 2022-08-12 19:13 | MHC.CARE ---
CARE Team had a telephonic encounter with pt and she reported she is doing fine. She stated she is currently with her friend from [place] and her grand daughter who lives with her. She reported no one has contacted her from referral - [facility]. This specification writer reported [facility] should contact her tomorrow or next week. PT denied SI/HI/AVH.
[2022-08-15 19:18] LABS: Levetiracetam Keppra 5.1 mcg/mL (6.0-46.0)
--- NOTE | 2022-08-16 15:29 | MHC.CARE ---
Referral for therapy @ [facility] submitted @ [phone]
== END 2022-08-11 17:37 | disposition home or self-care (01) ==
PROVIDERS: Emergency Provider Student in an Organized Health Care Education/Training Program; PCP Internal Medicine
DX: R56.9 Unspecified convulsions (principal); R45.851 Suicidal ideations; R51.9 Headache, unspecified; M54.2 Cervicalgia; Z20.822 Contact with and (suspected) exposure to COVID-19; Z20.828 Contact with and (suspected) exposure to other viral communicable diseases; Z79.4 Long term (current) use of insulin; Z79.899 Other long term (current) drug therapy
CPT/HCPCS: 36415; 70450; 72125; 80053; 80143; 80177; 80179; 81001; 81003; 82947; 84484; 85025; 85610; 87086; 87088; 87186; 87635; 93005; 96361; 96365; 96366; 99285; J1953; S9485

== ENCOUNTER 2022-10-05 07:36 | Emergency (ER) | payer MEDICAID, SELFPAY ==
--- NOTE | ~2022-10-05 | CT_ITS ---
EXAMINATION: CT ABDOMEN AND PELVIS WITH CONTRAST CLINICAL INFORMATION: Elevated lipase. COMPARISON: 03/25/2021 CT scan of the abdomen and pelvis. TECHNIQUE: Multidetector volumetric images were obtained from the superior aspect of the liver through the pubic symphysis following administration 85 mL of Omnipaque 350 intravenous contrast. Sagittal and coronal reformatted images were obtained on the technologist's workstation. Mild respiratory motion artifact limits evaluation. Oral contrast: No This CT examination was performed using dose optimization techniques as appropriate, variously including the following: *Automated exposure control *Adjustment of mA and/or kV according to patient size (this includes techniques or standardized protocols for targeted exams where dose is matched to indication/reason for exam; i.e. extremities or head) *Use of iterative reconstruction technique DLP: 2105 mGy-cm FINDINGS: LUNG BASES: The visualized lung bases are unremarkable. LIVER, GALLBLADDER, AND BILIARY TREE: Unremarkable. PANCREAS: Unremarkable. SPLEEN: Unremarkable. ADRENAL GLANDS: Unremarkable. KIDNEYS AND URETERS: The kidneys are normal in size, shape, and attenuation. No hydronephrosis, hydroureter, or calculi seen. No perinephric stranding. BLADDER: Unremarkable. GASTROINTESTINAL TRACT: Very small hiatal hernia. ABDOMINAL WALL: No significant hernia is appreciated. LYMPH NODES: No lymphadenopathy. VASCULAR: Unremarkable. PELVIC VISCERA: Unremarkable. OSSEOUS STRUCTURES: Mild degenerative disc disease is seen from L3-L4 to L5-S1. No acute/suspicious abnormality. CT/CT abdomen pelvis w IV con IMPRESSION: 1. No acute intra-abdominal/pelvic abnormality to explain the patient's symptoms. 2. Very small hiatal hernia.
[2022-10-05 07:43] VITALS: BP 166/86; PULSE 92; RESP 18; TEMP 36.6; O2SAT 96; BMI 30.2
--- NOTE | 2022-10-05 08:55 | ED_ITS ---
HPI - Abdominal Pain General Chief Complaint: Abdominal Pain Stated Complaint: Lower abd pain/Pos & neg preg test Time Seen by Provider: 10/05/22 08:46 Source: patient Mode of arrival: ambulatory Limitations: language barrier (British) History of Present Illness HPI narrative: 57-year-old female with diabetes, hypertension, seizure disorder, taking Keppra?here with complaints of abdominal discomfort generalized x 2 weeks. She reports vomiting intermittently but this is an ongoing problen and not new. No diarrhea/constipation. Last BM last evening. +urinary frequency with no dysuria. +scant vaginal bleeding last night. Last menses 3 months ago (prior to this was having regular menses monthly). No fevers, chills. Per patient last colonoscopy was 3 yrs ago and reportedly normal. 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 Related Data Home Medications Medication Instructions Recorded Confirmed acetaminophen 325 mg tablet 650 mg PO Q6H PRN Pain 08/11/22 08/11/22 amitriptyline 10 mg tablet 40 mg PO DAILY 08/11/22 08/11/22 aspirin 81 mg tablet,delayed 1 tab PO DAILY 08/11/22 08/11/22 release atorvastatin 40 mg tablet 40 mg PO BEDTIME 08/11/22 08/11/22 canagliflozin 300 mg tablet 1 tab PO QAM 08/11/22 08/11/22 (Invokana) cyclobenzaprine 10 mg tablet 10 mg PO DAILY 08/11/22 08/11/22 docusate sodium 100 mg capsule 100 mg PO BID PRN Constipation 08/11/22 08/11/22 duloxetine 30 mg capsule,delayed 1 cap PO DAILY 08/11/22 08/11/22 release ezetimibe 10 mg tablet 1 tab PO DAILY 08/11/22 08/11/22 fluticasone propionate 50 1 spray intranasal DAILY PRN 08/11/22 08/11/22 mcg/actuation nasal Congestion spray,suspension insulin glargine 100 unit/mL (3 25 unit subcut BEDTIME 08/11/22 08/11/22 mL) subcutaneous pen (Lantus Solostar U-100 Insulin) insulin glargine 100 unit/mL (3 45 unit subcut DAILY 08/11/22 08/11/22 mL) subcutaneous pen (Lantus Solostar U-100 Insulin) insulin lispro 100 unit/mL 5 - 10 unit subcut TID 08/11/22 08/11/22 subcutaneous pen levetiracetam 1,000 mg tablet 2 tab PO BID 08/11/22 08/11/22 lidocaine 5 % topical patch 1 patch topical DAILY 08/11/22 08/11/22 lisinopril 5 mg tablet 1 tab PO DAILY 08/11/22 08/11/22 meloxicam 15 mg tablet 1 tab PO DAILY 08/11/22 08/11/22 metoclopramide HCl 5 mg tablet 1 tab PO QID 08/11/22 08/11/22 naproxen 500 mg tablet 500 mg PO BID PRN Pain 08/11/22 08/11/22 omega 0-xqg-rli-fish oil 1,000 mg 1 cap PO DAILY 08/11/22 08/11/22 (120 mg-180 mg) capsule (Fish Oil) omeprazole 20 mg capsule,delayed 20 mg PO BID@0630,1630 08/11/22 08/11/22 release ondansetron HCl 4 mg tablet 4 mg PO Q8H PRN Nausea 08/11/22 08/11/22 sitagliptin phosphate 100 mg 1 tab PO DAILY 08/11/22 08/11/22 tablet (Januvia) sucralfate 100 mg/mL oral 10 ml PO DAILY@1700 08/11/22 08/11/22 suspension Previous Rx's Medication Instructions Recorded nitrofurantoin 100 mg PO Q12H 5 days #10 caps 10/05/22 monohydrate/macrocrystals 100 mg capsule (Macrobid) Allergies Allergy/AdvReac Type Severity Reaction Status Date / Time No Known Allergies Allergy Verified 06/04/22 10:26 Review of Systems Review of Systems Yes all other systems are reviewed and are negative Constitutional: Reports no additional constitutional complaints, Denies body ache(s), Denies chills, Denies fever(s), Denies headache(s) and Denies weakness Eyes: Reports no additional eye complaints and Denies change in vision Reports system reviewed and no additional complaints, except as documented, Denies dizziness, Denies headache(s), Denies nasal congestion, Denies nasal disc harge and Denies neck pain Cardiovascular: Reports no additional cardiovascular complaints, Denies chest pain, Denies leg edema and Denies dyspnea Respiratory: Reports no additional respiratory complaints, Denies cough and Denies dyspnea Gastrointestinal: Reports no additional gastrointestinal complaints, Reports abdominal pain, Denies diarrhea, Denies nausea and Denies vomiting Genitourinary: Reports no additional female genitourinary complaints, Reports amenorrhea, Denies dysuria, Denies pelvic pain, Denies flank pain, Denies urinary incontinence and Denies vaginal discharge Comments: +vag bleeding, urinary frequency Musculoskeletal: Reports no additional musculoskeletal complaints, Denies back pain, Denies arthralgias, Denies joint swelling, Denies neck pain, Denies numbness and Denies tingling Skin/Breast: Reports system reviewed and no additional complaints, except as docu and Denies rash Reports system reviewed and no additional complaints, except as documented, Denies dizziness, Denies headache(s), Denies numbness, Denies tingling and Denies weakness PMFSH Past Medical History Attestation statement: The following information was validated with the patient. Source: old records reviewed and nursing notes reviewed Medical History Asthma Depression Diabetes Diabetic retinopathy Epilepsy Essential hypertension Gastroparesis Hyperlipidemia Hyperlipidemia LDL goal <100 Hypertension Type 2 diabetes mellitus with hyperglycemia, with long-term current use of insulin Surgical History H/O section H/O esophagogastroduodenoscopy (03/14/18) History of ankle surgery Hx of colonoscopy (~06/2018) Family History Family History Mother Diabetes Father Diabetes Social History Social History Household Members: Spouse, Children and Caregiver Do you presently have visiting nurse or other home services: Yes ([facility] Visiting nurse. [phone], can call in regrads to patients care.) Alcohol intake: never Patient Tobacco Use Status: Never used Tobacco Advance Directives: No Advance Directives Information Provided: Yes Physical Exam ED Vital Signs: Vital Signs - 24 hr 10/05/22 07:43 Temperature 97.8 F Pulse Rate 92 Respiratory Rate 18 Blood Pressure 166/86 H Pulse Oximetry 96 Oxygen Delivery Method Room Air BMI result Body Mass Index 30.2 Const General: cooperative, healthy appearing, comfortable and no acute distress Orientation/consciousness: patient oriented x3 Limitations: language barrier HENMT Head: Yes normal to inspection Ears: hearing grossly normal bilaterally Eyes General: appearance normal, both eyes and all related structures Pupils: Equal, round and reactive pupils present Neck Neck: Yes normal visual inspection, Yes full ROM and Yes no lymphadenopathy Chest Chest palpation & inspection: normal inspection of the chest Resp Effort & Inspection: normal respiratory effort Auscultation: clear to auscultation bilaterally Cardio Rate: regular rate Rhythm: regular rhythm Peripheral pulses: Peripheral pulses 2+ throughout GI Inspection: Yes normal to inspection Palpation (GI): Soft to palpation and Tenderness to palpation present (GI) (diffusely tender ) Auscultation: normal bowel sounds Neuro General: patient oriented x3 Cranial nerves: Yes Equal, round and reactive pupils present Course Course Course Narrative: 1000 elevated lipase. Will order CT of the abdomen pelvis to rule out pancreatitis Reevaluation(s) Reevaluation #1: 1200-CT shows no signs of pancreatitis. UA is consistent with UTI. No signs symptoms concerning for pyelonephritis. Patient overall nontoxic, afebrile, no leukocytosis. Patient would discourage home with course of antibiotics. Rev iewed worrisome signs and symptoms when to return to the emergency room. Comfortable plan for discharge home. Medical Decision Making Medical Decision Making [facility] Narrative: 57 yo female with history of HTN, DM, seizure disorder here with complaints of abdominal pain x 2 weeks, acute on chronic vomiting, urinary frequency, scant vag bleeding. On exam mild diffuse TTP VSS Will obtain labs, UA Differential Diagnosis Differential Diagnoses: The differential diagnosis associated with the presentation includes Lab Data 10/05/22 09:11 10/05/22 09:11 Labs: Lab Results 10/05/22 10/05/22 10/05/22 Range/Units 09:11 09:11 09:11 WBC 6.1 (4.8-10.8) X10*3/uL RBC 4.30 (4.20-5.50) X10*6/uL Hgb 12.5 (12.0-16.0) g/dl Hct 37.8 (37.0-47.0) % MCV 87.9 (80.0-98.0) fL MCH 29.1 (27.0-33.0) pg MCHC 33.1 (31.0-35.0) g/dl RDW 12.6 (11.0-16.0) % Plt Count 249 (160-400) X10*3/uL MPV 9.9 (9.4-12.3) fL Immature Gran % (Auto) 0.3 (0.0-0.4) % Neut % (Auto) 63.0 (45-73) % Lymph % (Auto) 27.8 (20-40) % [place] % (Auto) 5.9 (2-11) % Eos % (Auto) 2.5 (0-4) % Baso % (Auto) 0.5 (0-2) % Lymph # (Auto) 1.7 (1.2-4.9) X10*3/uL [place] # (Auto) 0.4 (0.1-1.2) X10*3/uL Eos # (Auto) 0.2 (0.0-0.4) X10*3/uL Baso # (Auto) 0.0 (0.0-0.2) X10*3/uL Abs Immat Gran (auto) 0.02 (0.00-0.03) X10*3/uL Absolute Neuts (auto) 3.9 (2.0-8.3) x10*3/uL Absolute Nucleated RBC 0.000 (0.0-0.012) X10*3/uL Nucleated RBC % (auto) 0.0 (0.0-0.2) /100WBC Sodium 141 (135-145) mmol/L Potassium 4.5 (3.3-5.1) mmol/L Chloride 108 (96-108) mmol/L Carbon Dioxide 27 (22-29) mmol/L Anion Gap 11 L (12-20) BUN 22 H (9-16) mg/dL Creatinine 0.82 (0.5-1.4) mg/dL Estim Creat Clear Calc 72.5 Estimated GFR > 60 Random Glucose 308 H (60-115) mg/dL Calcium 9.1 (8.4-10.2) mg/dL Total Bilirubin 0.7 (0.0-1.0) mg/dL Direct Bilirubin 0.2 (0.0-0.5) mg/dL AST 10 (5-31) U/L ALT 12 (0-31) U/L Alkaline Phosphatase 94 (39-117) U/L Total Protein 6.1 L (6.5-8.0) g/dL Albumin 3.5 (3.5-5.0) g/dL Lipase 162 H (8-78) U/L Urine Color Urine Appearance Urine pH (5.0-9.0) Ur Specific [place] (1.005-1.025) Urine Protein (Neg-Trace) mg/dL Urine Glucose (UA) (Negative) mg/dL Urine Ketones (Negative) mg/dL Urine Blood (Negative) Urine Nitrite (Negative) Ur Leukocyte Esterase (Negative) Urine RBC (0-2) /HPF Urine WBC (0-5) /HPF Ur Squamous Epith Cells (0-2) /HPF Urine Bacteria (None Seen) Hyaline Casts (0-2) /LPF Urine Test (NEGATIVE) 10/05/22 10/05/22 Range/Units 09:48 09:48 WBC (4.8-10.8) X10*3/uL RBC (4.20-5.50) X10*6/uL Hgb (12.0-16.0) g/dl Hct (37.0-47.0) % MCV (80.0-98.0) fL MCH (27.0-33.0) pg MCHC (31.0-35.0) g/dl RDW (11.0-16.0) % Plt Count (160-400) X10*3/uL MPV (9.4-12.3) fL Immature Gran % (Auto) (0.0-0.4) % Neut % (Auto) (45-73) % Lymph % (Auto) (20-40) % [place] % (Auto) (2-11) % Eos % (Auto) (0-4) % Baso % (Auto) (0-2) % Lymph # (Auto) (1.2-4.9) X10*3/uL [place] # (Auto) (0.1-1.2) X10*3/uL Eos # (Auto) (0.0-0.4) X10*3/uL Baso # (Auto) (0.0-0.2) X10*3/uL Abs Immat Gran (auto) (0.00-0.03) X10*3/uL Absolute Neuts (auto) (2.0-8.3) x10*3/uL Absolute Nucleated RBC (0.0-0.012) X10*3/uL Nucleated RBC % (auto) (0.0-0.2) /100WBC Sodium (135-145) mmol/L Potassium (3.3-5.1) mmol/L Chloride (96-108) mmol/L Carbon Dioxide (22-29) mmol/L Anion Gap (12-20) BUN (9-16) mg/dL Creatinine (0.5-1.4) mg/dL Estim Creat Clear Calc Estimated GFR Random Glucose (60-115) mg/dL Calcium (8.4-10.2) mg/dL Total Bilirubin (0.0-1.0) mg/dL Direct Bilirubin (0.0-0.5) mg/dL AST (5-31) U/L ALT (0-31) U/L Alkaline Phosphatase (39-117) U/L Total Protein (6.5-8.0) g/dL Albumin (3.5-5.0) g/dL Lipase (8-78) U/L Urine Color Yellow Urine Appearance Turbid Urine pH 5.5 (5.0-9.0) Ur Specific [place] >= 1.030 H (1.005-1.025) Urine Protein 30 (1+) H (Neg-Trace) mg/dL Urine Glucose (UA) >=1000 H (Negative) mg/dL Urine Ketones Negative (Negative) mg/dL Urine Blood Trace H (Negative) Urine Nitrite Negative (Negative) Ur Leukocyte Esterase Trace H (Negative) Urine RBC 0-2 (0-2) /HPF Urine WBC >50 H (0-5) /HPF Ur Squamous Epith Cells >20 (0-2) /HPF Urine Bacteria 4+ (None Seen) Hyaline Casts 3-5 (0-2) /LPF Urine Test NEGATIVE (NEGATIVE) Medications Administered Discontinued Medications Generic Name Dose Route Start Last Admin Trade Name Freq PRN Reason Stop Dose Admin Iohexol 100 ml 10/05/22 10:50 10/05/22 10:50 Iohexol 350 Mg/Ml 100 Ml Infus..Btl IV 10/05/22 10:51 85 ml ONCE ONE Administration Discharge Plan Discharge Clinical Impression: UTI (urinary tract infection) Patient Disposition: Home, Self-Care Instructions: Urinary Tract Infection in Women (DC) Additional Instructions: Jesus trabajo de laboratorio y tomograf?a computarizada son normales. Y d?ndote el n?natalie de un gastroenter?logo. Deber? pedirle a jesus m?dico de atenci?n primaria que lo remita Prescriptions: New nitrofurantoin monohyd/m-cryst [Macrobid] 100 mg capsule 100 mg PO Q12H 5 Days Qty: 10 0RF Rx Instructions: must administer with a meal/food No Action meloxicam 15 mg tablet 1 tab PO DAILY aspirin 81 mg tablet,delayed release (DR/EC) 1 tab PO DAILY amitriptyline 10 mg tablet 40 mg PO DAILY lisinopril 5 mg tablet 1 tab PO DAILY insulin lispro 100 unit/mL insulin pen 5 - 10 unit subcut TID Rx Instructions: 5 units if BG <250, 10 units if Bg > 250 ezetimibe 10 mg tablet 1 tab PO DAILY duloxetine 30 mg capsule,delayed release(DR/EC) 1 cap PO DAILY levetiracetam 1,000 mg tablet 2 tab PO BID Januvia 100 mg tablet 1 tab PO DAILY insulin glargine [Lantus Solostar U-100 Insulin] 100 unit/mL (3 mL) insulin pen 25 unit subcut BEDTIME insulin glargine [Lantus Solostar U-100 Insulin] 100 unit/mL (3 mL) insulin pen 45 unit subcut DAILY Invokana 300 mg tablet 1 tab PO QAM atorvastatin 40 mg Tablet 40 mg PO BEDTIME acetaminophen 325 mg Tablet 650 mg PO Q6H PRN (Reason: Pain) cyclobenzaprine 10 mg Tablet 10 mg PO DAILY sucralfate 100 mg/mL Suspension 10 ml PO DAILY@1700 ondansetron HCl [Zofran] 4 mg Tablet 4 mg PO Q8H PRN (Reason: Nausea) metoclopramide HCl 5 mg tablet 1 tab PO QID lidocaine 5 % Adhesive Patch,Medicated 1 patch TOPICAL DAILY Rx Instructions: leave on most painful area for up to 12 hrs docusate sodium 100 mg Capsule 100 mg PO BID PRN (Reason: Constipation) omeprazole 20 mg Capsule,Delayed Release(Dr/Ec) 20 mg PO BID@0630,1630 fluticasone propionate [Flonase] 50 mcg/actuation [place],Suspension 1 spray INTRANASAL DAILY PRN (Reason: Congestion) Rx Instructions: administer into each nostril naproxen 500 mg Tablet 500 mg PO BID PRN (Reason: Pain) omega 7-aay-bnq-fish oil [Fish Oil] 1,000 mg (120 mg-180 mg) Capsule 1 cap PO DAILY Referrals: Jassi Wick MD [Physician] - 1 week Print Language: British
[2022-10-05 09:15] LABS: MANUAL DIFF FLAG NO
[2022-10-05 09:16] LABS: Basophils Percent Auto 0.5 % (0-2); Eosinophils Absolute Auto 0.2 X10*3/uL (0.0-0.4); Eosinophils Percent Auto 2.5 % (0-4); Hematocrit 37.8 % (37.0-47.0); Hemoglobin 12.5 g/dl (12.0-16.0); Imm Gran Abs Auto 0.02 X10*3/uL (0.00-0.03); Imm Gran Pct Auto 0.3 % (0.0-0.4); Lymphocytes Absolute Auto 1.7 X10*3/uL (1.2-4.9); Lymphocytes Percent Auto 27.8 % (20-40); Mean Corpuscular HGB Conc 33.1 g/dl (31.0-35.0); Mean Corpuscular Hemoglobin 29.1 pg (27.0-33.0); Mean Corpuscular Volume 87.9 fL (80.0-98.0); Mean Platelet Volume 9.9 fL (9.4-12.3); Monocytes Absolute Auto 0.4 X10*3/uL (0.1-1.2); Monocytes Percent Auto 5.9 % (2-11); Neutrophils Absolute Auto 3.9 x10*3/uL (2.0-8.3); Platelet Count 249 X10*3/uL (160-400); Red Cell Distribution Width 12.6 % (11.0-16.0); White Blood Count 6.1 X10*3/uL (4.8-10.8)
[2022-10-05 09:52] LABS: Lipase 162 U/L (8-78)
[2022-10-05 09:54] LABS: Alanine Aminotransferase 12 U/L (0-31); Albumin Level 3.5 g/dL (3.5-5.0); Alkaline Phosphatase 94 U/L (39-117); Anion Gap 11 (12-20); Aspartate Amino Transferase 10 U/L (5-31); Bilirubin Direct 0.2 mg/dL (0.0-0.5); Bilirubin Total 0.7 mg/dL (0.0-1.0); Blood Urea Nitrogen 22 mg/dL (9-16); Calcium 9.1 mg/dL (8.4-10.2); Carbon Dioxide 27 mmol/L (22-29); Chloride 108 mmol/L (96-108); Creatinine Clr Calc Pharmacy 72.5; Estimated Glomerular Filt Rate > 60; Glucose Random 308 mg/dL (60-115); Potassium 4.5 mmol/L (3.3-5.1); Sodium 141 mmol/L (135-145); Total Protein 6.1 g/dL (6.5-8.0)
[2022-10-05 09:58] LABS: UPreg QC Valid YES; Urine Pregnancy NEGATIVE (NEGATIVE)
[2022-10-05 09:59] LABS: Appearance Urine Turbid; Color Urine Yellow; Glucose Urine UA >=1000 mg/dL (Negative); Leukocyte Esterase Urine Trace (Negative); Nitrite Urine Negative (Negative); PH 5.5 (5.0-9.0); Specific Gravity - Urine >= 1.030 (1.005-1.025); UMIC TRIGGER UACC YES; Urine Blood Trace (Negative); Urine Ketones Negative (Negative); Urine Protein 30 (1+) mg/dL (Neg-Trace)
[2022-10-05 10:10] LABS: Bacteria Urine 4+ (None Seen); RBC Urine 0-2 /HPF (0-2); Squamous Epithelial Cell Urine >20 /HPF (0-2); UACC Culture Trigger YES; WBC Urine >50 /HPF (0-5)
[2022-10-05] MEDS: iohexoL 350 MG/ML 100 ML INFUS..BTL IV (10:50)
== END 2022-10-05 13:21 | disposition home or self-care (01) ==
PROVIDERS: Nurse Practitioner Family; Emergency Provider Emergency Medicine; PCP Internal Medicine
DX: N39.0 Urinary tract infection, site not specified (principal); B96.20 Unspecified Escherichia coli [E. coli] as the cause of diseases classified elsewhere; E11.9 Type 2 diabetes mellitus without complications; I10 Essential (primary) hypertension; E78.5 Hyperlipidemia, unspecified; Z79.82 Long term (current) use of aspirin; Z79.02 Long term (current) use of antithrombotics/antiplatelets; Z79.899 Other long term (current) drug therapy; Z79.4 Long term (current) use of insulin
CPT/HCPCS: 36415; 74177; 80048; 80076; 81001; 81025; 83690; 85025; 87086; 87088; 87186; 99282; 99283; 99284; Q9967

== ENCOUNTER 2022-11-15 08:44 | Outpatient (REF) | payer OTHER, SELFPAY ==
[2022-11-15 09:06] LABS: MANUAL DIFF FLAG NO
[2022-11-15 09:22] LABS: Basophils Percent Auto 0.4 % (0-2); Eosinophils Absolute Auto 0.2 X10*3/uL (0.0-0.4); Eosinophils Percent Auto 2.7 % (0-4); Hematocrit 42.8 % (37.0-47.0); Hemoglobin 13.8 g/dl (12.0-16.0); Imm Gran Abs Auto 0.03 X10*3/uL (0.00-0.03); Imm Gran Pct Auto 0.4 % (0.0-0.4); Lymphocytes Absolute Auto 1.5 X10*3/uL (1.2-4.9); Lymphocytes Percent Auto 21.7 % (20-40); Mean Corpuscular HGB Conc 32.2 g/dl (31.0-35.0); Mean Corpuscular Hemoglobin 29.1 pg (27.0-33.0); Mean Corpuscular Volume 90.1 fL (80.0-98.0); Mean Platelet Volume 10.2 fL (9.4-12.3); Monocytes Absolute Auto 0.4 X10*3/uL (0.1-1.2); Neutrophils Absolute Auto 4.9 x10*3/uL (2.0-8.3); Neutrophils Percent Auto 69.8 % (45-73); Platelet Count 277 X10*3/uL (160-400); Red Blood Count 4.75 X10*6/uL (4.20-5.50); Red Cell Distribution Width 12.5 % (11.0-16.0)
[2022-11-15 09:56] LABS: Alanine Aminotransferase 13 U/L (0-31); Albumin Level 3.9 g/dL (3.5-5.0); Alkaline Phosphatase 110 U/L (39-117); Anion Gap 14 (12-20); Aspartate Amino Transferase 17 U/L (5-31); Bilirubin Total 0.8 mg/dL (0.0-1.0); Blood Urea Nitrogen 38 mg/dL (9-16); Calcium 9.9 mg/dL (8.4-10.2); Carbon Dioxide 25 mmol/L (22-29); Chloride 106 mmol/L (96-108); Cholesterol 219 mg/dL; Estimated Glomerular Filt Rate 55; Glucose Fasting 294 mg/dL (60-99); HDL Cholesterol 53 mg/dL; LDL Cholesterol Calculated 136 mg/dl; Potassium 5.3 mmol/L (3.3-5.1); Sodium 140 mmol/L (135-145); Total Protein 7.5 g/dL (6.5-8.0); Triglycerides 151 mg/dL
[2022-11-15 10:21] LABS: TSH reflex Free T4 1.21 uIU/mL (0.32-4.0); Vitamin B12 539 pg/mL (200-900); Vitamin D 25-OH Total 30.3 ng/mL (>30)
[2022-11-15 11:01] LABS: Creatinine Urine 59.34 mg/dL; Microalbum/Creatinine Ratio Ur 102.7 ug/mg cr
== END 2022-11-15 08:45 | disposition home or self-care (01) ==
LOC: HO.LAB 08:44
PROVIDERS: PCP Nurse Practitioner Family; Visit Provider Nurse Practitioner Family
DX: E11.65 Type 2 diabetes mellitus with hyperglycemia (principal); G40.909 Epilepsy, unspecified, not intractable, without status epilepticus; Z79.4 Long term (current) use of insulin
CPT/HCPCS: 36415; 80053; 80061; 80177; 82043; 82306; 82607; 82746; 84443; 85025

== ENCOUNTER 2022-11-27 11:17 | Emergency (ER) | payer OTHER, SELFPAY ==
--- NOTE | ~2022-11-27 | XR_ITS ---
EXAMINATION: XR CHEST CLINICAL INFORMATION: Chest pain, rule out pneumothorax. COMPARISON: 05/01/2022 chest radiograph. TECHNIQUE: Frontal view of the chest was obtained. FINDINGS: No significant abnormality is noted involving the heart, lungs, mediastinum, bony thorax or soft tissues. XR/XR chest 1V IMPRESSION: No acute cardiopulmonary process. No pneumothorax.
[2022-11-27 11:19] VITALS: BP 178/96; BP 184/93; PULSE 84; PULSE 86; RESP 18; TEMP 36.9; O2SAT 100; O2SAT 97; BMI 27.4
[2022-11-27 11:23] VITALS: O2SAT 96
--- NOTE | 2022-11-27 11:34 | PC.NURSE ---
Per EMS pt found down on the ground, reports from daughter and FD on scene this happens all the time. Pt reports chest pain prior to passing out, denies hitting head, denies ETOH/Drug use. Reports she has taken her BP medications this morning, and her insulin yesterday, POC elevated in 300's. Interp at bedside to aid in assessment. She is answering questions appropriately at this time. awaiting to be seen by provider.
[2022-11-27 12:34] VITALS: BP 161/86; PULSE 82; RESP 15; O2SAT 98
--- NOTE | 2022-11-27 12:36 | ECG_ITS ---
Test Reason : syncope Blood Pressure : / mmHG Vent. Rate : 083 BPM Atrial Rate : 083 BPM P-R Int : 174 ms QRS Dur : 084 ms QT Int : 350 ms P-R-T Axes : 015 -07 003 degrees QTc Int : 411 ms Normal sinus rhythm Minimal voltage criteria for LVH, may be normal variant ( R in aVL ) Cannot rule out Anterior infarct , age undetermined Abnormal ECG When compared with ECG of 11-AUG-2022 09:48, T wave inversion now evident in Inferior leads T wave amplitude has decreased in Anterior leads Referred By: Sina Ramesh Electronically Signed By:Barber Huddleston
--- NOTE | 2022-11-27 12:37 | ED_ITS ---
HPI - Syncope General Chief Complaint: Syncope Stated Complaint: +LOC WHILE WALKING PER EMS Time Seen by Provider: 11/27/22 11:56 Source: patient Mode of arrival: EMS Limitations: language barrier (Urdu speaking only, vice president of contracts used) History of Present Illness HPI narrative: 57-year-old female who presents emergency department for evaluation of chest pain and a syncopal episode. The patient states that she has been sad since her boyfriend left her for another woman. This happened approximately 1 week ago. She states that she was walking and was thinking about her boyfriend when she developed chest pain. She points to her right chest when asked to localize the pain. She describes the pain is a squeezing pain. She then developed headache and passed out. She does not remember falling. An ambulance was called and she was brought to emergency department for evaluation. Time of evaluation she is still complaining of right-sided chest pain which she states is a squeezing pain which is 4/10 at its worst. Patient states that she has had a similar syncopal episode in the past when she has been sad and anxious. She denied fever or chills. She states that she has had a runny nose and sore throat but she attributes this to pollen. She denied shortness of breath, dyspnea on exertion, nausea, vomiting, diarrhea, dark black stools or bloody stools. Related Data Home Medications Medication Instructions Recorded Confirmed acetaminophen 325 mg tablet 650 mg PO Q6H PRN Pain 08/11/22 11/11/22 amitriptyline 10 mg tablet 40 mg PO DAILY 08/11/22 11/11/22 aspirin 81 mg tablet,delayed 1 tab PO DAILY 08/11/22 11/11/22 release atorvastatin 40 mg tablet 40 mg PO BEDTIME 08/11/22 11/11/22 canagliflozin 300 mg tablet 1 tab PO QAM 08/11/22 11/11/22 (Invokana) cyclobenzaprine 10 mg tablet 10 mg PO DAILY 08/11/22 11/11/22 docusate sodium 100 mg capsule 100 mg PO BID PRN Constipation 08/11/22 11/11/22 duloxetine 30 mg capsule,delayed 1 cap PO DAILY 08/11/22 11/11/22 release ezetimibe 10 mg tablet 1 tab PO DAILY 08/11/22 11/11/22 insulin glargine 100 unit/mL (3 25 unit subcut BEDTIME 08/11/22 11/11/22 mL) subcutaneous pen (Lantus Solostar U-100 Insulin) insulin glargine 100 unit/mL (3 45 unit subcut DAILY 08/11/22 11/11/22 mL) subcutaneous pen (Lantus Solostar U-100 Insulin) insulin lispro 100 unit/mL 5 - 10 unit subcut TID 08/11/22 11/11/22 subcutaneous pen levetiracetam 1,000 mg tablet 2 tab PO BID 08/11/22 11/11/22 lidocaine 5 % topical patch 1 patch topical DAILY 08/11/22 11/11/22 meloxicam 15 mg tablet 1 tab PO DAILY 08/11/22 11/11/22 naproxen 500 mg tablet 500 mg PO BID PRN Pain 08/11/22 11/11/22 omeprazole 20 mg capsule,delayed 20 mg PO BID@0630,1630 08/11/22 11/11/22 release sitagliptin phosphate 100 mg 1 tab PO DAILY 08/11/22 11/11/22 tablet (Januvia) sucralfate 100 mg/mL oral 10 ml PO DAILY@1700 08/11/22 11/11/22 suspension lisinopril 5 mg tablet 10 mg PO DAILY 11/11/22 11/11/22 Previous Rx's Medication Instructions Recorded flash glucose scanning reader #1 ea 11/11/22 (FreeStyle Guerda 14 Day [place]) flash glucose sensor (FreeStyle #1 ea 11/11/22 Guerda 14 Day Sensor kit) Allergies Allergy/AdvReac Type Severity Reaction Status Date / Time No Known Allergies Allergy Verified 11/11/22 14:53 Review of Systems Review of Systems: Yes all other systems are reviewed and are negative [facility] Past Medical History [facility] Narrative: Social history: She lives with her daughter. She denies tobacco, alcohol and drug use. Medical History Asthma Depression Diabetes Diabetic retinopathy Epilepsy Essential hypertension Gastroparesis Hyperlipidemia Hyperlipidemia LDL goal <100 Hypertension Type 2 diabetes mellitus with hyperglycemia, with long-term current use of insulin Surgical History H/O section H/O esophagogastroduodenoscopy (03/14/18) History of ankle surgery Hx of colonoscopy (~06/2018) Family History Family History Mother Diabetes Father Diabetes Social History Social History Household Members: Spouse, Children and Caregiver Housing: Apartment Do you presently have visiting nurse or other home services: Yes ([facility]osal[facility] Visiting nurse. [phone], can call in regrads to patients care.) Alcohol intake: never Patient Tobacco Use Status: Never used Tobacco Smoked in Last 30 Days: No Use of substances other than those prescribed or required for medical reasons: No Advance Directives: No service: No Current occupational status: unemployed Cognitive needs: No Hearing needs: No Vision needs: No Physical Exam Vital Signs: Vital Signs: Last Vital Signs Temp 97.9 F 11/27/22 15:00 Pulse 79 11/27/22 15:00 Resp 20 11/27/22 15:00 BP 141/85 H 11/27/22 15:00 Pulse Ox 96 11/27/22 15:00 O2 Del Method Room Air 11/27/22 15:00 BMI result Body Mass Index 27.4 Const: Other: Awake, alert, female patient, she appears sad, she is tearful, she does not lalito ear to be in distress HEENT: Head: Yes normal to inspection, Yes normocephalic and Yes atraumatic Ears: external ears normal General nose exam: Normal external nose present Face and sinus: Yes normal facial exam Mouth: Normal oral and palatal mucosa present Throat: Yes posterior oropharynx normal Eyes: General: appearance normal, both eyes and all related structures Pupils: Equal, round and reactive pupils present Neck: Neck: Yes normal visual inspection, Yes no lymphadenopathy, Yes trachea midline and Yes supple Chest: Chest palpation & inspection: tenderness (Tenderness with palpation of the right chest, reproduces her pain) Resp: Effort & Inspection: normal respiratory effort and able to speak in complete sentences Auscultation: clear to auscultation bilaterally Cardio: Rate: regular rate Rhythm: regular rhythm Heart sounds: S1 normal heart sound present, S2 normal heart sound present and no murmurs GI: Inspection: Yes normal to inspection Palpation (GI): Soft to palpation, nontender and no guarding Auscultation: normal bowel sounds : General: Yes no CVA tenderness Back/Spine/Pelvis: Back: no CVA tenderness Skin: General skin exam: no rashes or lesions noted Neuro: Cranial nerves: Yes CN's II-XII intact bilaterally and Yes Equal, round and reactive pupils present Cognition (Neuro): normal cognition Motor exam (neuro): 5/5 motor strength present throughout Extrem: General: Yes normal to inspection Psych: Appearance: grossly normal Speech and movement: Normal speech and movement present Affect: normal affect Attitude: cooperative Thought process: Normal thought process present Thought content: Normal thought content present Medications Administered Discontinued Medications Generic Name Dose Route Start Last Admin Trade Name Freq PRN Reason Stop Dose Admin Lorazepam 1 mg 11/27/22 12:35 11/27/22 12:41 Lorazepam 1 Mg Tablet PO 11/27/22 12:36 1 mg ONCE STA Administration Medical Decision Making Medical Decision Making MDM Narrative: 57-year-old female whose boyfriend left her 1 week prior who presents emergency department for evaluati vital signs did reveal an elevated on of chest pain whil e walking, headache, lightheadedness and syncope. Patient states she had a similar episode of syncope in the past when she was depressed and anxious. She is complaining of right-sided chest pain. Vital signs did reveal an elevated blood pressure of 184/93. Examination did reveal that she was tearful and appears to be sad and depressed. She denied being suicidal or homicidal. She did have right-sided chest tenderness which reproduced her pain. I ordered a laboratory evaluation includes CBC, CMP, PT/INR, troponin, chest x-ray. Patient will be placed on a network pricing consultant and O2 saturation monitor. 1512: My interpretation patient's laboratory evaluation is as follows: Elevated glucose 308. Troponin below detectable limits. Patient's 12 EKG was unremarkable. Patient's chest x-ray revealed no acute disease. Given the patient's negative workup and the fact that she was under increased stress secondary to her boyfriend breaking up with her I believe that the patient's syncopal episode was most likely caused by anxiety/panic attack. She has had similar syncopal episodes in the past secondary to stress. I did discuss this with her. She was discharged home and advised to follow-up with her PCP for help with her depression anxiety. Differential Diagnosis Differential Diagnoses: The differential diagnosis associated with the presentation includes Differential diagnosis includes was not limited to tech arrhythmia, bradyarrhythmia, vasovagal syncope, panic attack, dehydration, electrolyte abnormality, anemia Admission/Observation Consideration of admission/observation: Escalation of care including admission/observation considered Lab Data [facility] Lab Attestation statement: I reviewed the patient's lab results. See MDM 11/27/22 12:57 11/27/22 12:57 Labs: Lab Results 11/27/22 11/27/22 11/27/22 Range/Units 12:57 12:57 12:57 WBC 6.2 (4.8-10.8) X10*3/uL RBC 4.52 (4.20-5.50) X10*6/uL Hgb 13.0 (12.0-16.0) g/dl Hct 39.9 (37.0-47.0) % MCV 88.3 (80.0-98.0) fL MCH 28.8 (27.0-33.0) pg MCHC 32.6 (31.0-35.0) g/dl RDW 12.0 (11.0-16.0) % Plt Count 254 (160-400) X10*3/uL MPV 9.8 (9.4-12.3) fL Immature Gran % (Auto) 0.2 (0.0-0.4) % Neut % (Auto) 64.6 (45-73) % Lymph % (Auto) 27.6 (20-40) % [place] % (Auto) 5.0 (2-11) % Eos % (Auto) 2.1 (0-4) % Baso % (Auto) 0.5 (0-2) % Lymph # (Auto) 1.7 (1.2-4.9) X10*3/uL [place] # (Auto) 0.3 (0.1-1.2) X10*3/uL Eos # (Auto) 0.1 (0.0-0.4) X10*3/uL Baso # (Auto) 0.0 (0.0-0.2) X10*3/uL Abs Immat Gran (auto) 0.01 (0.00-0.03) X10*3/uL Absolute Neuts (auto) 4.0 (2.0-8.3) x10*3/uL Absolute Nucleated RBC 0.000 (0.0-0.012) X10*3/uL Nucleated RBC % (auto) 0.0 (0.0-0.2) /100WBC APTT 29.2 (26.0-36.4) SEC Sodium 141 (135-145) mmol/L Potassium 4.4 (3.3-5.1) mmol/L Chloride 105 (96-108) mmol/L Carbon Dioxide 31 H (22-29) mmol/L Anion Gap 9 L (12-20) BUN 18 H (9-16) mg/dL Creatinine 0.85 (0.5-1.4) mg/dL Estim Creat Clear Calc 69.4 Estimated GFR > 60 Random Glucose 308 H (60-115) mg/dL Calcium 9.8 (8.4-10.2) mg/dL Total Bilirubin 1.0 (0.0-1.0) mg/dL AST 11 (5-31) U/L ALT 13 (0-31) U/L Alkaline Phosphatase 118 H (39-117) U/L Troponin I High Sens (<3.5-17.0) ng/L Total Protein 6.9 (6.5-8.0) g/dL Albumin 3.8 (3.5-5.0) g/dL 11/27/22 Range/Units 12:57 WBC (4.8-10.8) X10*3/uL RBC (4.20-5.50) X10*6/uL Hgb (12.0-16.0) g/dl Hct (37.0-47.0) % MCV (80.0-98.0) fL MCH (27.0-33.0) pg MCHC (31.0-35.0) g/dl RDW (11.0-16.0) % Plt Count (160-400) X10*3/uL MPV (9.4-12.3) fL Immature Gran % (Auto) (0.0-0.4) % Neut % (Auto) (45-73) % Lymph % (Auto) (20-40) % [place] % (Auto) (2-11) % Eos % (Auto) (0-4) % Baso % (Auto) (0-2) % Lymph # (Auto) (1.2-4.9) X10*3/uL [place] # (Auto) (0.1-1.2) X10*3/uL Eos # (Auto) (0.0-0.4) X10*3/uL Baso # (Auto) (0.0-0.2) X10*3/uL Abs Immat Gran (auto) (0.00-0.03) X10*3/uL Absolute Neuts (auto) (2.0-8.3) x10*3/uL Absolute Nucleated RBC (0.0-0.012) X10*3/uL Nucleated RBC % (auto) (0.0-0.2) /100WBC APTT (26.0-36.4) SEC Sodium (135-145) mmol/L Potassium (3.3-5.1) mmol/L Chloride (96-108) mmol/L Carbon Dioxide (22-29) mmol/L Anion Gap (12-20) BUN (9-16) mg/dL Creatinine (0.5-1.4) mg/dL Estim Creat Clear Calc Estimated GFR Random Glucose (60-115) mg/dL Calcium (8.4-10.2) mg/dL Total Bilirubin (0.0-1.0) mg/dL AST (5-31) U/L ALT (0-31) U/L Alkaline Phosphatase (39-117) U/L Troponin I High Sens < 2.7 (<3.5-17.0) ng/L Total Protein (6.5-8.0) g/dL Albumin (3.5-5.0) g/dL Independent Interpretation I performed an independent interpretation of an: EKG and Plain X-Ray Interpretation: My interpretation of the patient's 12 EKG done at 1244 is as follows: Normal sinus rhythm rate of 83, normal NE interval, QRS duration QTC interval, no ST segment elevation, no ST segment depression, inverted T-wave in lead 3, no PACs, no PVCs-this is a normal EKG. Discharge Plan Discharge Clinical Impression: Syncope, Panic attack Patient Disposition: Home, Self-Care Additional Instructions: Your blood work was normal. Your EKG was unremarkable. Your chest x-ray was normal. At this time, I believe that you passed out secondary to stress and anxiety in you may have had a panic attack. Continue taking medications as prescribed by your doctor. Follow-up with your doctor in 2 days. Please return to the emergency department if your symptoms get worse or if you develop any symptoms that are concerning to you. Prescriptions: No Action meloxicam 15 mg tablet 1 tab PO DAILY aspirin 81 mg tablet,delayed release (DR/EC) 1 tab PO DAILY amitriptyline 10 mg tablet 40 mg PO DAILY insulin lispro 100 unit/mL insulin pen 5 - 10 unit subcut TID Rx Instructions: 5 units if BG <250, 10 units if Bg > 250 ezetimibe 10 mg tablet 1 tab PO DAILY duloxetine 30 mg capsule,delayed release(DR/EC) 1 cap PO DAILY levetiracetam 1,000 mg tablet 2 tab PO BID Januvia 100 mg tablet 1 tab PO DAILY insulin glargine [Lantus Solostar U-100 Insulin] 100 unit/mL (3 mL) insulin pen 25 unit subcut BEDTIME insulin glargine [Lantus Solostar U-100 Insulin] 100 unit/mL (3 mL) insulin pen 45 unit subcut DAILY Invokana 300 mg tablet 1 tab PO QAM atorvastatin 40 mg Tablet 40 mg PO BEDTIME acetaminophen 325 mg Tablet 650 mg PO Q6H PRN (Reason: Pain) cyclobenzaprine 10 mg Tablet 10 mg PO DAILY sucralfate 100 mg/mL Suspension 10 ml PO DAILY@1700 lidocaine 5 % Adhesive Patch,Medicated 1 patch TOPICAL DAILY Rx Instructions: leave on most painful area for up to 12 hrs docusate sodium 100 mg Capsule 100 mg PO BID PRN (Reason: Constipation) omeprazole 20 mg Capsule,Delayed Release(Dr/Ec) 20 mg PO BID@0630,1630 naproxen 500 mg Tablet 500 mg PO BID PRN (Reason: Pain) lisinopril 5 mg tablet 10 mg PO DAILY (DME) FreeStyle Guerda 14 Day [place] Misc See Rx Instructions .Route Qty: 1 0RF Rx Instructions: As directed (DME) FreeStyle Guerda 14 Day Sensor Kit See Rx Instructions .Route Qty: 1 6RF Rx Instructions: As directed
[2022-11-27] MEDS: LORazepam 1 MG TABLET PO (12:41)
[2022-11-27 13:01] LABS: MANUAL DIFF FLAG NO
[2022-11-27 13:03] LABS: Basophils Percent Auto 0.5 % (0-2); Eosinophils Absolute Auto 0.1 X10*3/uL (0.0-0.4); Eosinophils Percent Auto 2.1 % (0-4); Hematocrit 39.9 % (37.0-47.0); Imm Gran Abs Auto 0.01 X10*3/uL (0.00-0.03); Imm Gran Pct Auto 0.2 % (0.0-0.4); Lymphocytes Absolute Auto 1.7 X10*3/uL (1.2-4.9); Lymphocytes Percent Auto 27.6 % (20-40); Mean Corpuscular HGB Conc 32.6 g/dl (31.0-35.0); Mean Corpuscular Hemoglobin 28.8 pg (27.0-33.0); Mean Corpuscular Volume 88.3 fL (80.0-98.0); Mean Platelet Volume 9.8 fL (9.4-12.3); Monocytes Absolute Auto 0.3 X10*3/uL (0.1-1.2); Neutrophils Percent Auto 64.6 % (45-73); Platelet Count 254 X10*3/uL (160-400); Red Blood Count 4.52 X10*6/uL (4.20-5.50); White Blood Count 6.2 X10*3/uL (4.8-10.8)
[2022-11-27 13:11] LABS: Partial Thromboplastin Time 29.2 SEC (26.0-36.4)
[2022-11-27 13:29] LABS: Alanine Aminotransferase 13 U/L (0-31); Albumin Level 3.8 g/dL (3.5-5.0); Alkaline Phosphatase 118 U/L (39-117); Anion Gap 9 (12-20); Aspartate Amino Transferase 11 U/L (5-31); Blood Urea Nitrogen 18 mg/dL (9-16); Calcium 9.8 mg/dL (8.4-10.2); Carbon Dioxide 31 mmol/L (22-29); Chloride 105 mmol/L (96-108); Creatinine Clr Calc Pharmacy 69.4; Estimated Glomerular Filt Rate > 60; Glucose Random 308 mg/dL (60-115); Potassium 4.4 mmol/L (3.3-5.1); Sodium 141 mmol/L (135-145); Total Protein 6.9 g/dL (6.5-8.0)
[2022-11-27 13:40] LABS: Troponin-I High Sensitivity < 2.7 ng/L (<3.5-17.0)
[2022-11-27 15:00] VITALS: BP 141/85; PULSE 79; RESP 20; TEMP 36.6; O2SAT 96
== END 2022-11-27 15:59 | disposition home or self-care (01) ==
PROVIDERS: Emergency Provider Emergency Medicine Emergency Medical Services; PCP Nurse Practitioner Family
DX: R55 Syncope and collapse (principal); F41.0 Panic disorder [episodic paroxysmal anxiety]; E11.9 Type 2 diabetes mellitus without complications; I10 Essential (primary) hypertension; E78.5 Hyperlipidemia, unspecified; Z79.82 Long term (current) use of aspirin; Z79.02 Long term (current) use of antithrombotics/antiplatelets; Z79.899 Other long term (current) drug therapy; Z79.4 Long term (current) use of insulin
CPT/HCPCS: 36415; 71045; 80053; 84484; 85025; 85730; 93005; 99284; 99285

== ENCOUNTER 2022-12-01 16:45 | Emergency (ER) | payer OTHER, SELFPAY ==
[2022-12-01 16:54] VITALS: BP 104/58; PULSE 94; RESP 18; TEMP 36.6; O2SAT 98; BMI 25.7
--- NOTE | 2022-12-01 17:34 | ED_ITS ---
HPI - Ear Problem General Chief complaint: Ear Problems Stated complaint: L EAR PAIN, VOMITING Time Seen by Provider: 12/01/22 17:10 History of Present Illness HPI Narrative: patient complains of mild left ear pain mild sore throat runny nose mild body aches similar to symptoms her daughter had several days ago She has no headache no confusion no dizziness no weakness no stiff neck, there is mild pain with swallowing but no difficulty swallowing no difficulty breathing no chest pain no shortness of breath no cough no sputum no abdominal pain no nausea vomiting or diarrhea no skin rash Related Data Home Medications Medication Instructions Recorded Confirmed acetaminophen 325 mg tablet 650 mg PO Q6H PRN Pain 08/11/22 11/11/22 canagliflozin 300 mg tablet 1 tab PO QAM 08/11/22 11/11/22 (Invokana) docusate sodium 100 mg capsule 100 mg PO BID PRN Constipation 08/11/22 11/11/22 ezetimibe 10 mg tablet 1 tab PO DAILY 08/11/22 11/11/22 insulin glargine 100 unit/mL (3 25 unit subcut BEDTIME 08/11/22 11/11/22 mL) subcutaneous pen (Lantus Solostar U-100 Insulin) insulin glargine 100 unit/mL (3 45 unit subcut DAILY 08/11/22 11/11/22 mL) subcutaneous pen (Lantus Solostar U-100 Insulin) levetiracetam 1,000 mg tablet 2 tab PO BID 08/11/22 11/11/22 lidocaine 5 % topical patch 1 patch topical DAILY 08/11/22 11/11/22 meloxicam 15 mg tablet 1 tab PO DAILY 08/11/22 11/11/22 naproxen 500 mg tablet 500 mg PO BID PRN Pain 08/11/22 11/11/22 omeprazole 20 mg capsule,delayed 20 mg PO BID@0630,1630 08/11/22 11/11/22 release sucralfate 100 mg/mL oral 10 ml PO DAILY@1700 08/11/22 11/11/22 suspension lisinopril 5 mg tablet 10 mg PO DAILY 11/11/22 11/11/22 Previous Rx's Medication Instructions Recorded flash glucose sensor (FreeStyle #1 ea 11/11/22 Guerda 14 Day Sensor kit) amitriptyline 10 mg tablet 40 mg PO DAILY #120 tabs 05/26/23 aspirin 81 mg tablet,delayed 81 mg PO DAILY #90 tabs 12/03/22 release atorvastatin 40 mg tablet 40 mg PO BEDTIME #90 tabs 12/03/22 cyclobenzaprine 10 mg tablet 10 mg PO DAILY PRN muscle spasm 12/03/22 #30 tabs duloxetine 30 mg capsule,delayed 30 mg PO DAILY #90 caps 12/03/22 release flash glucose scanning reader #1 ea 12/03/22 (FreeStyle Guerda 14 Day [place]) insulin lispro 100 unit/mL 5 - 10 unit (0.05 - 0.1 mL) subcut 12/03/22 subcutaneous pen TID #15 mL omega-3 fatty acids 500 mg capsule 500 mg PO DAILY #90 caps 12/03/22 sitagliptin phosphate 100 mg 100 mg PO DAILY #90 tabs 12/03/22 tablet (Januvia) Allergies Allergy/AdvReac Type Severity Reaction Status Date / Time No Known Allergies Allergy Verified 11/11/22 14:53 [facility] Past Medical History Source: nursing notes reviewed Medical History Asthma Depression Diabetes Diabetic retinopathy Epilepsy Essential hypertension Gastroparesis Hyperlipidemia Hyperlipidemia LDL goal <100 Hypertension Type 2 diabetes mellitus with hyperglycemia, with long-term current use of insulin Surgical History H/O section H/O esophagogastroduodenoscopy (03/14/18) History of ankle surgery Hx of colonoscopy (~06/2018) Family History Family History Mother Diabetes Father Diabetes Social History Social History Household Members: Spouse, Children and Caregiver Housing: Apartment Do you presently have visiting nurse or other home services: Yes (Rosalio Moreno nurse. [phone], can call in regrads to patients care.) Alcohol intake: never Patient Tobacco Use Status: Never used Tobacco Advance Directives: No Advance Directives Information Provided: Yes service: No Current occupational status: unemployed Cognitive needs: No Hearing needs: No Vision needs: No Physical Exam Vital Signs: Vital Signs: Last Vital Signs Temp 98 F 12/01/22 16:54 Pulse 94 12/01/22 16:54 Resp 18 12/01/22 16:54 BP 104/58 L 12/01/22 16:54 Pulse Ox 98 12/01/22 16:54 O2 Del Method Room Air 12/01/22 16:54 BMI result Body Mass Index 25.7 general appearance is comfortable no acute distress Eyes no redness or discharge The ears, both ears had normal tympanic membrane, no redness no perforations ca nals were normal bilaterally without any swelling or redness The sinuses were nontender The pharynx was clear without redness swelling or exudate voice was normal Neck is supple Chest was clear to auscultation bilateral Heart no murmur Abdomen soft nontender Extremities for range of motion x4 Skin no rash Course Course Course Narrative: patient with normal physical exam no sign of ear infection throat was normal teeth were normal, well-appearing is discharged diagnosis viral illness Ear pain is likely from congestion blocking sinuses or tubes and was mild and should resolve as cold symptoms resolve Discharge Plan Discharge Clinical Impression: Viral illness Patient Disposition: Home, Self-Care Additional Instructions: the ears did not show any sign of infection the throat was normal, no sign of any dangerous or serious illness now This is likely a mild viral illness, use Tylenol if needed Return any time any worse condition or any concerns Prescriptions: No Action Januvia 100 mg tablet 100 mg PO DAILY Qty: 90 0RF insulin lispro 100 unit/mL insulin pen 5 - 10 unit subcut TID Qty: 15 2RF Rx Instructions: 5 units if BG <250, 10 units if Bg > 250 duloxetine 30 mg capsule,delayed release(DR/EC) 30 mg PO DAILY Qty: 90 0RF atorvastatin 40 mg tablet 40 mg PO BEDTIME Qty: 90 0RF aspirin 81 mg tablet,delayed release (DR/EC) 81 mg PO DAILY Qty: 90 0RF amitriptyline 10 mg tablet 40 mg PO DAILY Qty: 120 0RF (DME) FreeStyle Guerda 14 Day [place] Misc See Rx Instructions .Route Qty: 1 0RF Rx Instructions: As directed cyclobenzaprine 10 mg tablet 10 mg PO DAILY PRN (Reason: muscle spasm) Qty: 30 1RF omega-3 fatty acids 500 mg capsule 500 mg PO DAILY Qty: 90 0RF meloxicam 15 mg tablet 1 tab PO DAILY ezetimibe 10 mg tablet 1 tab PO DAILY levetiracetam 1,000 mg tablet 2 tab PO BID insulin glargine [Lantus Solostar U-100 Insulin] 100 unit/mL (3 mL) insulin pen 25 unit subcut BEDTIME insulin glargine [Lantus Solostar U-100 Insulin] 100 unit/mL (3 mL) insulin pen 45 unit subcut DAILY Invokana 300 mg tablet 1 tab PO QAM acetaminophen 325 mg Tablet 650 mg PO Q6H PRN (Reason: Pain) sucralfate 100 mg/mL Suspension 10 ml PO DAILY@1700 lidocaine 5 % Adhesive Patch,Medicated 1 patch TOPICAL DAILY Rx Instructions: leave on most painful area for up to 12 hrs docusate sodium 100 mg Capsule 100 mg PO BID PRN (Reason: Constipation) omeprazole 20 mg Capsule,Delayed Release(Dr/Ec) 20 mg PO BID@0630,1630 naproxen 500 mg Tablet 500 mg PO BID PRN (Reason: Pain) lisinopril 5 mg tablet 10 mg PO DAILY (DME) FreeStyle Guerda 14 Day Sensor Kit See Rx Instructions .Route Qty: 1 6RF Rx Instructions: As directed Interventions: ED Discharge Assessment Last Done: 12/01/22 18:24 Discharge Date/Time: 12/01/22 18:24
== END 2022-12-01 18:24 | disposition home or self-care (01) ==
PROVIDERS: Emergency Provider Emergency Medicine
DX: B34.9 Viral infection, unspecified (principal); H92.02 Otalgia, left ear; J02.9 Acute pharyngitis, unspecified; E11.9 Type 2 diabetes mellitus without complications; I10 Essential (primary) hypertension; E78.5 Hyperlipidemia, unspecified; Z79.4 Long term (current) use of insulin; Z79.899 Other long term (current) drug therapy
CPT/HCPCS: 99282; 99283

== ENCOUNTER 2023-01-12 10:09 | Emergency (ER) | payer OTHER, SELFPAY ==
[2023-01-12 10:15] VITALS: BP 133/79; BP 138/60; PULSE 85; RESP 14; TEMP 37; O2SAT 96; O2SAT 97; BMI 28.7
[2023-01-12 10:23] VITALS: PULSE 84
--- NOTE | 2023-01-12 10:30 | ED.CHESTPAIN ---
HPI - Chest Pain General Chief Complaint: Chest Pain Stated Complaint: cp per ems Time Seen by Provider: 01/12/23 10:14 Source: patient and family Mode of arrival: ambulatory Limitations: language barrier History of Present Illness HPI narrative: Patient with right sided headache that started 1.5 hours ago, she has had headaches and migraine. She was lying down when she got the migraine. Patient states that she had 2 seizures today. Patient is on Keppra, her dosage was increased in November. Patient is getting seizures every 4 months. Patient is under more stress recently. Related Data Home Medications Medication Instructions Recorded Confirmed acetaminophen 325 mg tablet 650 mg PO Q6H PRN Pain 08/11/22 12/16/22 canagliflozin 300 mg tablet 1 tab PO QAM 08/11/22 12/16/22 (Invokana) docusate sodium 100 mg capsule 100 mg PO BID PRN Constipation 08/11/22 12/16/22 ezetimibe 10 mg tablet 1 tab PO DAILY 08/11/22 12/16/22 insulin glargine 100 unit/mL (3 25 unit subcut BEDTIME 08/11/22 12/16/22 mL) subcutaneous pen (Lantus Solostar U-100 Insulin) insulin glargine 100 unit/mL (3 45 unit subcut DAILY 08/11/22 12/16/22 mL) subcutaneous pen (Lantus Solostar U-100 Insulin) levetiracetam 1,000 mg tablet 2 tab PO BID 08/11/22 12/16/22 lidocaine 5 % topical patch 1 patch topical DAILY 08/11/22 12/16/22 meloxicam 15 mg tablet 1 tab PO DAILY 08/11/22 12/16/22 naproxen 500 mg tablet 500 mg PO BID PRN Pain 08/11/22 12/16/22 omeprazole 20 mg capsule,delayed 20 mg PO BID@0630,1630 08/11/22 12/16/22 release sucralfate 100 mg/mL oral 10 ml PO DAILY@1700 08/11/22 12/16/22 suspension Previous Rx's Medication Instructions Recorded cyclobenzaprine 10 mg tablet 10 mg PO DAILY PRN muscle spasm 12/03/22 #30 tabs duloxetine 30 mg capsule,delayed 30 mg PO DAILY #90 caps 12/03/22 release insulin lispro 100 unit/mL 5 - 10 unit (0.05 - 0.1 mL) subcut 12/03/22 subcutaneous pen TID #15 mL omega-3 fatty acids 500 mg capsule 500 mg PO DAILY #90 caps 12/03/22 atorvastatin 80 mg tablet 80 mg PO BEDTIME #90 tabs 12/10/22 lisinopril 10 mg tablet 10 mg PO DAILY #90 tabs 12/14/22 flash glucose scanning reader #1 ea 12/16/22 (FreeStyle Guerda 2 [place]) flash glucose sensor (FreeStyle #1 ea 12/16/22 Guerda 2 Sensor kit) amitriptyline 10 mg tablet 40 mg PO DAILY #120 tabs 12/31/22 aspirin 81 mg tablet,delayed 81 mg PO DAILY #90 tabs 12/31/22 release sitagliptin phosphate 100 mg 100 mg PO DAILY #90 tabs 12/31/22 tablet (Januvia) Allergies Allergy/AdvReac Type Severity Reaction Status Date / Time No Known Allergies Allergy Verified 12/16/22 09:37 Review of Systems Review of Systems: Yes all other systems are reviewed and are negative Constitutional: Comments: headache Neurologic: Denies Sensory deficit (Neuro) Comments: 2 seizures PMFSH Past Medical History Medical History Asthma Depression Diabetes Diabetic retinopathy Encounter to establish care Epilepsy Essential hypertension Gastroparesis Hyperlipidemia Hyperlipidemia LDL goal <100 Hypertension Type 2 diabetes mellitus with hyperglycemia, with long-term current use of insulin Surgical History H/O section H/O esophagogastroduodenoscopy (03/14/18) History of ankle surgery Hx of colonoscopy (~06/2018) Family History Family History Mother Diabetes Father Diabetes Social History Social History Household Members: Spouse, Children and Caregiver Housing: Apartment Do you presently have visiting nurse or other home services: Yes (Rosalio Moreno nurse. [phone], can call in regrads to patients care.) Alcohol intake: never Patient Tobacco Use Status: Never used Tobacco Smoked in Last 30 Days: No Use of substances other than those prescribed or required for medical reasons: No Advance Directives: No Advance Directives Information Provided: Yes service: No Current occupational status: unemployed Cognitive needs: No Hearing needs: No Vision needs: No Physical Exam Vital Signs: Vital Signs: Last Vital Signs Temp 98.6 F 01/12/23 10:15 Pulse 85 01/12/23 10:15 Resp 14 01/12/23 10:15 BP 133/79 01/12/23 10:15 Pulse Ox 96 01/12/23 10:15 O2 Del Method Room Air 01/12/23 10:15 BMI result Body Mass Index 28.7 Const: Other: flat affect General: healthy appearing Nutritional Appearance: average body habitus Orientation/consciousness: oriented to person and patient oriented x3 Limitations: no limitations HEENT: Head: Yes normal to inspection Ears: external ears normal General nose exam: Normal external nose present Mouth: Normal oral and palatal mucosa present and oropharynx normal Throat: Yes posterior oropharynx normal Eyes: General: appearance normal, both eyes and all related structures Neck: Other: supple Neck: Yes normal visual inspection Chest: Chest palpation & inspection: normal inspection of the chest Resp: Auscultation: clear to auscultation bilaterally Cardio: Jugular venous distension: no JVD Rate: regular rate Rhythm: regular rhythm Heart sounds: S1 normal heart sound present and S2 normal heart sound present GI: Inspection: Yes normal to inspection Palpation (GI): Soft to palpation, nontender and No hepatosplenomegaly present Auscultation: normal bowel sounds : General: Yes no CVA tenderness Back/Spine/Pelvis: Back: no CVA tenderness Skin: General skin exam: no rashes or lesions noted Neuro: General: oriented to person and patient oriented x3 Cranial nerves: Yes CN's II-XII intact bilaterally Motor exam (neuro): 5/5 motor strength present throughout Sensory Exam: No Sensory deficit (Neuro) Extrem: General: Yes normal to inspection Psych: Other: flat affect Appearance: grossly normal Course Reevaluation(s) Reevaluation #1: no electrolyte abnormalities, non focal will dc home on Time: 12:25 Medications Administered Discontinued Medications Generic Name Dose Route Start Last Admin Trade Name Freq PRN Reason Stop Dose Admin Acetaminophen 975 mg 01/12/23 10:39 01/12/23 11:07 Acetaminophen 325 Mg Tablet PO 01/12/23 10:40 975 mg ONCE ONE Administration Medical Decision Making Differential Diagnosis Differential Diagnoses: The differential diagnosis associated with the presentation includes (seizure disorder, status epilepticus, migraine) Admission/Observation Consideration of admission/observation: Escalation of care including admission/observation considered (In this 57yo female with 2 seizures today admission was considered upon arrival) Lab Data MDM Lab Attestation statement: I reviewed the patient's lab results. (calcium, magnesium and UA all normal) 01/12/23 10:50 01/12/23 10:50 Labs: Lab Results 01/12/23 01/12/23 01/12/23 Range/Units 10:50 10:50 11:16 WBC 6.4 (4.8-10.8) X10*3/uL RBC 4.10 L (4.20-5.50) X10*6/uL Hgb 12.2 (12.0-16.0) g/dl Hct 37.0 (37.0-47.0) % MCV 90.2 (80.0-98.0) fL MCH 29.8 (27.0-33.0) pg MCHC 33.0 (31.0-35.0) g/dl RDW 12.6 (11.0-16.0) % Plt Count 295 (160-400) X10*3/uL MPV 9.4 (9.4-12.3) fL Immature Gran % (Auto) 0.5 H (0.0-0.4) % Neut % (Auto) 66.4 (45-73) % Lymph % (Auto) 24.0 (20-40) % [place] % (Auto) 5.2 (2-11) % Eos % (Auto) 3.4 (0-4) % Baso % (Auto) 0.5 (0-2) % Lymph # (Auto) 1.5 (1.2-4.9) X10*3/uL [place] # (Auto) 0.3 (0.1-1.2) X10*3/uL Eos # (Auto) 0.2 (0.0-0.4) X10*3/uL Baso # (Auto) 0.0 (0.0-0.2) X10*3/uL Abs Immat Gran (auto) 0.03 (0.00-0.03) X10*3/uL Absolute Neuts (auto) 4.2 (2.0-8.3) x10*3/uL Absolute Nucleated RBC 0.000 (0.0-0.012) X10*3/uL Nucleated RBC % (auto) 0.0 (0.0-0.2) /100WBC Sodium 144 (135-145) mmol/L Potassium 4.4 (3.3-5.1) mmol/L Chloride 107 (96-108) mmol/L Carbon Dioxide 28 (22-29) mmol/L Anion Gap 13 (12-20) BUN 15 (9-16) mg/dL Creatinine 0.74 (0.5-1.4) mg/dL Estim Creat Clear Calc 78.5 Estimated GFR > 60 Random Glucose 224 H (60-115) mg/dL Calcium 9.7 (8.4-10.2) mg/dL Magnesium 1.9 (1.6-2.6) mg/dL Urine Color Yellow Urine Appearance Clear Urine pH 6.5 (5.0-9.0) Ur Specific [place] 1.015 (1.005-1.025) Urine Protein Negative (Neg-Trace) mg/dL Urine Glucose (UA) >=1000 H (Negative) mg/dL Urine Ketones Negative (Negative) mg/dL Urine Blood Negative (Negative) Urine Nitrite Positive H (Negative) Ur Leukocyte Esterase Trace H (Negative) Urine RBC 0-2 (0-2) /HPF Urine WBC 0-5 (0-5) /HPF Ur Squamous Epith Cells 3-5 (0-2) /HPF Urine Bacteria 4+ (None Seen) Hyaline Casts 0-2 (0-2) /LPF Independent Interpretation I performed an independent interpretation of an: EKG (sinus 80, no st or twave changes) Independent Historian Clinical information obtained from an independent historian. History obtained from or confirmed by: Other (family: daughter) Tests considered The following testing was considered but not selected: I considered doing a head CT but patient is at baseline, non focal Chronic Conditions Patient?s care impacted by: Other (seizure disorder) Social Determinants Psychiatric depression Major Discharge Plan Discharge Clinical Impression: Seizure disorder Patient Disposition: Home, Self-Care Instructions: Epilepsy (ED) Prescriptions: No Action insulin lispro 100 unit/mL insulin pen 5 - 10 unit subcut TID Qty: 15 2RF Rx Instructions: 5 units if BG <250, 10 units if Bg > 250 duloxetine 30 mg capsule,delayed release(DR/EC) 30 mg PO DAILY Qty: 90 0RF cyclobenzaprine 10 mg tablet 10 mg PO DAILY PRN (Reason: muscle spasm) Qty: 30 1RF omega-3 fatty acids 500 mg capsule 500 mg PO DAILY Qty: 90 0RF atorvastatin 80 mg tablet 80 mg PO BEDTIME Qty: 90 1RF lisinopril 10 mg tablet 10 mg PO DAILY Qty: 90 1RF (DME) FreeStyle Guerda 2 [place] Misc See Rx Instructions .Route Qty: 1 0RF Rx Instructions: As directed (DME) FreeStyle Guerda 2 Sensor Kit See Rx Instructions .Route Qty: 1 3RF Rx Instructions: As directed Januvia 100 mg tablet 100 mg PO DAILY Qty: 90 0RF aspirin 81 mg tablet,delayed release (DR/EC) 81 mg PO DAILY Qty: 90 0RF amitriptyline 10 mg tablet 40 mg PO DAILY Qty: 120 0RF meloxicam 15 mg tablet 1 tab PO DAILY ezetimibe 10 mg tablet 1 tab PO DAILY levetiracetam 1,000 mg tablet 2 tab PO BID insulin glargine [Lantus Solostar U-100 Insulin] 100 unit/mL (3 mL) insulin pen 25 unit subcut BEDTIME insulin glargine [Lantus Solostar U-100 Insulin] 100 unit/mL (3 mL) insulin pen 45 unit subcut DAILY Invokana 300 mg tablet 1 tab PO QAM acetaminophen 325 mg Tablet 650 mg PO Q6H PRN (Reason: Pain) sucralfate 100 mg/mL Suspension 10 ml PO DAILY@1700 lidocaine 5 % Adhesive Patch,Medicated 1 patch TOPICAL DAILY Rx Instructions: leave on most painful area for up to 12 hrs docusate sodium 100 mg Capsule 100 mg PO BID PRN (Reason: Constipation) omeprazole 20 mg Capsule,Delayed Release(Dr/Ec) 20 mg PO BID@0630,1630 naproxen 500 mg Tablet 500 mg PO BID PRN (Reason: Pain) Referrals: Erica Rivera, [employer] [Primary Care Provider] - 3 days
--- NOTE | 2023-01-12 10:47 | PC.NURSE ---
pt axox4, VSS, NSR on monitor 81, skin WPD, respirations even and unlabored, initial complaint on arrival with ems cp onset 0900; no improvement with aspirin and nitro given via ems. when speaking to doctor pt reports having 2 seizures at home, reports compliance with Keppra prescription. pt reports recent increase in dose as well as recent increased stress. seizure pads in place, neuros intact, daughter at bedside.
[2023-01-12 11:23] LABS: Anion Gap 13 (12-20); Blood Urea Nitrogen 15 mg/dL (9-16); Calcium 9.7 mg/dL (8.4-10.2); Carbon Dioxide 28 mmol/L (22-29); Chloride 107 mmol/L (96-108); Creatinine Clr Calc Pharmacy 78.5; Estimated Glomerular Filt Rate > 60; Glucose Random 224 mg/dL (60-115); Magnesium 1.9 mg/dL (1.6-2.6); Potassium 4.4 mmol/L (3.3-5.1); Sodium 144 mmol/L (135-145)
[2023-01-12 12:45] VITALS: BP 141/72; PULSE 81; RESP 17; TEMP 36.5; O2SAT 94
== END 2023-01-12 12:55 | disposition home or self-care (01) ==
PROVIDERS: Emergency Provider Emergency Medicine; PCP Nurse Practitioner Family
DX: G40.909 Epilepsy, unspecified, not intractable, without status epilepticus (principal); N39.0 Urinary tract infection, site not specified; B96.20 Unspecified Escherichia coli [E. coli] as the cause of diseases classified elsewhere; R51.9 Headache, unspecified; E11.9 Type 2 diabetes mellitus without complications; I10 Essential (primary) hypertension; E78.5 Hyperlipidemia, unspecified; Z79.899 Other long term (current) drug therapy; Z79.4 Long term (current) use of insulin; Z79.82 Long term (current) use of aspirin
CPT/HCPCS: 36415; 80048; 81001; 83735; 85025; 87086; 87088; 87186; 93005; 99283; 99284; 99285

== ENCOUNTER → 2023-01-25 08:15 | Outpatient (BNV) | payer OTHER, SELFPAY | PROVIDERS: PCP Nurse Practitioner Family; Visit Provider Radiology Diagnostic Radiology | DX: Z12.31 Encounter for screening mammogram for malignant neoplasm of breast (principal) | CPT/HCPCS: 77063; 77067 ==

== ENCOUNTER 2023-01-25 08:31 | Outpatient (REF) | payer OTHER, SELFPAY ==
--- NOTE | ~2023-01-25 | MM_ITS ---
EXAMINATION: MM SCREENING DIGITAL BREAST TOMOSYNTHESIS, BILATERAL CLINICAL INFORMATION: Screening. Asymptomatic. The lifetime risk of breast cancer based on the Tyrer-Cuzick Model is 11.7%. COMPARISON: Mammography: This study is compared with prior exams dating back to 2016. TECHNIQUE: Digital breast tomosynthesis is performed in both the craniocaudal and mediolateral oblique views along with computer-aided detection (CAD). Synthesized 2D images are generated from the tomosynthesis. FINDINGS: There are scattered areas of fibroglandular density (ACR BI-RADS breast composition Category b). There are no significant masses, abnormal calcifications, or other abnormalities. MM/MM tomosynthesis screening BI IMPRESSION: No mammographic evidence of malignancy. ASSESSMENT: BI-RADS BI-RADS 1 - Negative RECOMMENDATION: Routine annual mammography screening. 1 year F/U This examination should not preclude the clinical evaluation of a suspicious palpable abnormality. This patient's information was entered into a reminder system with a target due date for their next mammogram.
== END 2023-01-25 08:32 | disposition home or self-care (01) ==
LOC: HO.MAMMO 08:31
PROVIDERS: PCP Nurse Practitioner Family; Visit Provider Nurse Practitioner Family
DX: Z12.31 Encounter for screening mammogram for malignant neoplasm of breast (principal)
CPT/HCPCS: 77063; 77067

== ENCOUNTER 2023-01-27 11:33 | Emergency (ER) | payer OTHER, SELFPAY ==
[2023-01-27 11:42] VITALS: BP 134/70; BP 138/77; PULSE 70; PULSE 83; RESP 18; TEMP 37.1; O2SAT 100; BMI 29.2
--- NOTE | 2023-01-27 12:02 | PC.NURSE ---
Pt to [facility] via EMS from home with concern for facial pain post oral surgery x24 hours ago. Pt denies past history of complications with dental procedures, denies medication allergies. Endorses history of seizure disorder; on Keppra - has been med compliant. Pt endorsing chest pain, localized to right midsternal - no radiation. Pt is Korean speaking only, family member at bedside. +TAYLOR/SOB, -N/V/D. VSS. A&Ox4. Plan for provider assessment. WCTA
--- NOTE | 2023-01-27 12:21 | ED.DENTAL ---
HPI - Dental/Oral General Chief complaint: Dental/Oral Stated complaint: R chest pain. R facial pain Time Seen by Provider: 01/27/23 11:48 Source: patient and family Mode of arrival: ambulatory Limitations: no limitations History of Present Illness HPI Narrative: 57-year-old female presenting to the ER with complaints of dental pain. Reports that she had her molar removed yesterday or today at the dentist office and they did not give her anything for pain. She reports she has been taking [id number] Motrin Tylenol no symptomatic relief. She reports she cannot even eat due to the pain. She reports the pain is radiating down her neck into her chest although she denies any actual chest pain. She denies any recent falls, fevers, facial swelling, trouble swallowing or breathing, rashes or any other symptoms complaints or concerns at this time. She reports she did contact her dentist office and they told her that she can just gargle salt water although patient tried that and is not providing any symptomatic relief. MD Complaint: tooth pain Teeth map: 1. Onset (ago): day(s) ( yesterday) Duration: constant Severity: moderate Relieving factors: nothing Exacerbating factors: nothing Context: history of dental caries, poor dental care and other ( Recent dental extraction) Treatment prior to arrival: other ( see above) Related Data Home Medications Medication Instructions Recorded Confirmed acetaminophen 325 mg tablet 650 mg PO Q6H PRN Pain 08/11/22 12/16/22 canagliflozin 300 mg tablet 1 tab PO QAM 08/11/22 12/16/22 (Invokana) docusate sodium 100 mg capsule 100 mg PO BID PRN Constipation 08/11/22 12/16/22 ezetimibe 10 mg tablet 1 tab PO DAILY 08/11/22 12/16/22 insulin glargine 100 unit/mL (3 25 unit subcut BEDTIME 08/11/22 12/16/22 mL) subcutaneous pen (Lantus Solostar U-100 Insulin) insulin glargine 100 unit/mL (3 45 unit subcut DAILY 08/11/22 12/16/22 mL) subcutaneous pen (Lantus Solostar U-100 Insulin) lidocaine 5 % topical patch 1 patch topical DAILY 08/11/22 12/16/22 meloxicam 15 mg tablet 1 tab PO DAILY 08/11/22 12/16/22 naproxen 500 mg tablet 500 mg PO BID PRN Pain 08/11/22 12/16/22 sucralfate 100 mg/mL oral 10 ml PO DAILY@1700 08/11/22 12/16/22 suspension Previous Rx's Medication Instructions Recorded cyclobenzaprine 10 mg tablet 10 mg PO DAILY PRN muscle spasm 12/03/22 #30 tabs duloxetine 30 mg capsule,delayed 30 mg PO DAILY #90 caps 12/03/22 release insulin lispro 100 unit/mL 5 - 10 unit (0.05 - 0.1 mL) subcut 12/03/22 subcutaneous pen TID #15 mL omega-3 fatty acids 500 mg capsule 500 mg PO DAILY #90 caps 12/03/22 atorvastatin 80 mg tablet 80 mg PO BEDTIME #90 tabs 12/10/22 lisinopril 10 mg tablet 10 mg PO DAILY #90 tabs 12/14/22 flash glucose scanning reader #1 ea 12/16/22 ([employer]KO [employer] Guerda 2 [place]) flash glucose sensor ([email or web address] #1 ea 12/16/22 Guerda 2 Sensor kit) amitriptyline 10 mg tablet 40 mg PO DAILY #120 tabs 12/31/22 aspirin 81 mg tablet,delayed 81 mg PO DAILY #90 tabs 12/31/22 release sitagliptin phosphate 100 mg 100 mg PO DAILY #90 tabs 12/31/22 tablet (Januvia) cefuroxime axetil 250 mg tablet 250 mg PO BID 5 days #10 tabs 01/16/23 levetiracetam 1,000 mg tablet 2,000 mg PO BID 30 days #120 tabs 01/18/23 omeprazole 20 mg capsule,delayed 20 mg PO BID@0630,1630 #90 caps 01/19/23 release acetaminophen 500 mg tablet 1,000 mg PO QID PRN fever or pain 01/27/23 (Tylenol Extra Strength) #14 tabs amoxicillin 875 mg-potassium 1 tab PO BID 10 days #20 tabs 01/27/23 clavulanate 125 mg tablet ibuprofen 800 mg tablet 800 mg PO Q8H PRN pain #14 tabs 01/27/23 oxycodone 5 mg tablet 5 mg PO Q6H PRN pain #14 tabs 01/27/23 Allergies Allergy/AdvReac Type Severity Reaction Status Date / Time No Known Allergies Allergy Verified 12/16/22 09:37 Review of Systems Review of Systems: Constitutional : No Fever, No Chills, No changes in PO intake, No difficulty speaking, no recent dental procedure, no heat or cold intolerance while eating, no recent face trauma, ENT/Mouth : + Dental pain, No Sore throat, No Jaw pain, No throat swelling, No swallowing difficulty, no change in voice, No facial swelling, no drooling, no trismus, no bleeding, no lacerations, no tongue swelling, gum swelling, Eyes: No Eye Pain, No periorbital Swelling Cardiovascular : No Chest Pain, No SOB Respiratory : No Cough, No Sputum, No Wheezing, No Smoke Exposure, No Dyspnea Gastrointestinal : No Nausea, No Vomiting, No Diarrhea Genitourinary : No Dysuria Musculoskeletal : No Myalgias Skin : No rash, no facial swelling or redness, Neuro : No Weakness, No Numbness, No Headache Yes all other systems are reviewed and are negative PMFSH Past Medical History Attestation statement: The following information was validated with the patient. Source: old records reviewed and nursing notes reviewed Medical History Asthma Depression Diabetes Diabetic retinopathy Encounter to establish care Epilepsy Essential hypertension Gastroparesis Hyperlipidemia Hyperlipidemia LDL goal <100 Hypertension Type 2 diabetes mellitus with hyperglycemia, with long-term current use of insulin Surgical History H/O section H/O esophagogastroduodenoscopy (03/14/18) History of ankle surgery Hx of colonoscopy (~06/2018) Family History Family History Mother Diabetes Father Diabetes Social History Social History Household Members: Spouse, Children and Caregiver Housing: Apartment Do you presently have visiting nurse or other home services: Yes (Rosalio Moreno nurse. [phone], can call in regrads to patients care.) Alcohol intake: never Patient Tobacco Use Status: Never used Tobacco Advance Directives: No Advance Directives Information Provided: Yes service: No Current occupational status: unemployed Cognitive needs: No Hearing needs: No Vision needs: No Physical Exam Vital Signs: Vital Signs: Last Vital Signs Temp 98.7 F 01/27/23 11:42 Pulse 83 01/27/23 11:42 Resp 18 01/27/23 11:42 BP 138/77 01/27/23 11:42 BMI result Body Mass Index 29.2 vital signs have been reviewed as normal and appeared to be correct. Blood pressure normal. Heart rate normal. Respiration rate normal. Temperature normal. Oxygen saturation normal. Appearance: Alert. Oriented X3. No acute distress. Head: Normal external exam. Normocephalic. Atraumatic. Eyes: PERRLA. EOMI. Conjunctiva and sclera normal. Eyelids normal. ENT: EAC normal. TM's Normal. Pharynx normal. Uvula midline. Moist mucous membranes. No trismus noted. No drooling noted. No muffled voice noted. Dentition: Patient with poor dentition throughout with multiple old fractured teeth with multiple dental caries. although she is noted to have a molar that was recently removed/ extracted there is no obvious erythema around the extracted area. The gingival appears normal. No lesions noted. Gingival within normal limits. No fluctuance. Not consistent with peritonsillar abscess. Not consistent with dental abscess. No salivary duct obstruction noted. Neck: Normal inspection. Neck supple. FROM. No adenopathy. Thyroid Normal. No meningeal signs. No neck mass noted. Trachea midline. CVS: Normal heart rate and rhythm. Heart sound normal. No murmurs noted. Pulses normal throughout. Respiratory: No respiratory distress. Painless inspiration. Breath sounds normal. No wheezes/rales/rhonchi noted. Chest nontender. No accessory muscle usage noted or decreased air movement noted. Back: Full range of motion noted. Skin: Skin warm and dry. Normal skin color. Normal skin turgor. No rashes/lesions/lacerations noted. Extremities:Extremities exhibit normal range of motion. Extremities nontender. Neuro: Oriented X 3. No motor deficit. No sensory deficit. Reflexes normal. Course Course Course Narrative: 57-year-old female presenting to the ER with dental pain she is now status post dental extraction either yesterday or today she was unclear presenting with worsening pain. Reports she called her dentist they told her to gargle salt water which she has and no symptomatic relief. She has been taking Motrin Tylenol around the clock and no symptomatic relief. She reports the pain is now going down her face into her chest area although denies any actual chest pain. On exam she does have multiple dental caries and old dental fractures and I am able to visualize the dental extraction site and there is no swelling or erythema or drainage noted from the site. The clot still appears to be in place. This could be dry socket versus just pain from the surgery. Not consistent with peritonsillar / dental /gingival abscess. Not consistent with lugwigs angina. Patient tolerating secretions well. Will DC home with antibiotics and symptomatic treatment instructions return if any new or worsening symptoms follow up with primary care provider and dentist. Patient with daughter at bedside understand agree this plan. Medications Administered Discontinued Medications Generic Name Dose Route Start Last Admin Trade Name Freq PRN Reason Stop Dose Admin Amoxicillin/Clavulanate Potassium 875 mg 01/27/23 12:20 01/27/23 12:27 Amoxicillin/Potassium Clav 875 Mg Tablet PO 01/27/23 12:21 875 mg ONCE ONE Administration Ibuprofen 800 mg 01/27/23 12:20 01/27/23 12:27 Ibuprofen 800 Mg Tablet PO 01/27/23 12:21 800 mg ONCE ONE Administration Oxycodone HCl 5 mg 01/27/23 12:20 01/27/23 12:27 Oxycodone Hcl Immed Release 5 Mg Tablet PO 01/27/23 12:21 5 mg ONCE ONE Administration Medical Decision Making Medical Decision Making MDM Narrative: see course Differential Diagnosis Differential Diagnoses: The differential diagnosis associated with the presentation includes see course Independent Historian Clinical information obtained from an independent historian. History obtained from or confirmed by: Other (daughter ) External Record Review External record reviewed: Inpatient record, Office record, Outpatient record, Prior outpatient labs, Prior outpatient radiology, Primary care record and Outside ED record All prior labs/ imaging /EKG and notes that are accessible in our system reviewed by myself Prescription Management I considered prescription management with: Pain Medication and Antibiotic Chronic Conditions Patient?s care impacted by: Diabetes and Hypertension Social Determinants Patient?s care significantly limited by Social Determinants of Health including: Low income and Other Social Determinant of Health Discharge Plan Discharge Clinical Impression: Pain, dental, Dental caries Patient Disposition: Home, Self-Care Instructions: Tooth Extraction (DC) Prescriptions: New amoxicillin-pot clavulanate 875-125 mg tablet 1 tab PO BID 10 Days Qty: 20 0RF oxycodone 5 mg tablet 5 mg PO Q6H PRN (Reason: pain) Qty: 14 0RF Rx Instructions: Partial Fill upon patient request. ibuprofen 800 mg tablet 800 mg PO Q8H PRN (Reason: pain) Qty: 14 0RF acetaminophen [Tylenol Extra Strength] 500 mg tablet 1,000 mg PO QID PRN (Reason: fever or pain) Qty: 14 0RF No Action insulin lispro 100 unit/mL insulin pen 5 - 10 unit subcut TID Qty: 15 2RF Rx Instructions: 5 units if BG <250, 10 units if Bg > 250 duloxetine 30 mg capsule,delayed release(DR/EC) 30 mg PO DAILY Qty: 90 0RF cyclobenzaprine 10 mg tablet 10 mg PO DAILY PRN (Reason: muscle spasm) Qty: 30 1RF omega-3 fatty acids 500 mg capsule 500 mg PO DAILY Qty: 90 0RF atorvastatin 80 mg tablet 80 mg PO BEDTIME Qty: 90 1RF lisinopril 10 mg tablet 10 mg PO DAILY Qty: 90 1RF (DME) FreeStyle Guerda 2 [place] Misc See Rx Instructions .Route Qty: 1 0RF Rx Instructions: As directed (DME) FreeStyle Guerda 2 Sensor Kit See Rx Instructions .Route Qty: 1 3RF Rx Instructions: As directed Januvia 100 mg tablet 100 mg PO DAILY Qty: 90 0RF aspirin 81 mg tablet,delayed release (DR/EC) 81 mg PO DAILY Qty: 90 0RF amitriptyline 10 mg tablet 40 mg PO DAILY Qty: 120 0RF levetiracetam 1,000 mg tablet 2,000 mg PO BID 30 Days Qty: 120 0RF omeprazole 20 mg capsule,delayed release(DR/EC) 20 mg PO BID@0630,1630 Qty: 90 0RF meloxicam 15 mg tablet 1 tab PO DAILY ezetimibe 10 mg tablet 1 tab PO DAILY insulin glargine [Lantus Solostar U-100 Insulin] 100 unit/mL (3 mL) insulin pen 25 unit subcut BEDTIME insulin glargine [Lantus Solostar U-100 Insulin] 100 unit/mL (3 mL) insulin pen 45 unit subcut DAILY Invokana 300 mg tablet 1 tab PO QAM acetaminophen 325 mg Tablet 650 mg PO Q6H PRN (Reason: Pain) sucralfate 100 mg/mL Suspension 10 ml PO DAILY@1700 lidocaine 5 % Adhesive Patch,Medicated 1 patch TOPICAL DAILY Rx Instructions: leave on most painful area for up to 12 hrs docusate sodium 100 mg Capsule 100 mg PO BID PRN (Reason: Constipation) naproxen 500 mg Tablet 500 mg PO BID PRN (Reason: Pain) cefuroxime axetil 250 mg tablet 250 mg PO BID 5 Days Qty: 10 0RF Referrals: Erica Rivera FNP [Primary Care Provider] - 2 days Interventions: ED Discharge Assessment Last Done: 01/27/23 12:31 Discharge Date/Time: 01/27/23 12:31 Print Language: Kinyarwanda
[2023-01-27] MEDS: Ibuprofen 800 MG TABLET PO (12:27)
[2023-01-27] MEDS: oxyCODONE HCl Immed Release 5 MG TABLET PO (12:27)
[2023-01-27] MEDS: Amoxicillin/Potassium Clav 875 MG TABLET PO (12:27)
== END 2023-01-27 12:31 | disposition home or self-care (01) ==
PROVIDERS: Emergency Provider Emergency Medicine; PCP Nurse Practitioner Family
DX: K08.89 Other specified disorders of teeth and supporting structures (principal); K02.9 Dental caries, unspecified; E11.9 Type 2 diabetes mellitus without complications; I10 Essential (primary) hypertension; E78.5 Hyperlipidemia, unspecified; Z79.4 Long term (current) use of insulin
CPT/HCPCS: 99283

== ENCOUNTER 2023-03-10 08:26 | Outpatient (REF) | payer OTHER, SELFPAY ==
[2023-03-10 10:04] LABS: Estimated Average Glucose 186 mg/dL; Hemoglobin A1c % 8.1 % (<6.0)
[2023-03-10 10:32] LABS: Alanine Aminotransferase 12 U/L (0-31); Alkaline Phosphatase 115 U/L (39-117); Anion Gap 11 (12-20); Aspartate Amino Transferase 13 U/L (5-31); Bilirubin Total 0.5 mg/dL (0.0-1.0); Blood Urea Nitrogen 31 mg/dL (9-16); Calcium 9.9 mg/dL (8.4-10.2); Carbon Dioxide 30 mmol/L (22-29); Chloride 105 mmol/L (96-108); Cholesterol 188 mg/dL (<200); Estimated Glomerular Filt Rate > 60; Glucose Fasting 90 mg/dL (60-99); HDL Cholesterol 64 mg/dL (>40); LDL Cholesterol Calculated 111 mg/dL (<100); Potassium 4.2 mmol/L (3.3-5.1); Sodium 142 mmol/L (135-145); Total Protein 7.5 g/dL (6.5-8.0); Triglycerides 68 mg/dL (<150)
== END 2023-03-10 08:27 | disposition home or self-care (01) ==
LOC: HO.LAB 08:26
PROVIDERS: PCP Nurse Practitioner Family; Visit Provider Nurse Practitioner Family
DX: E78.5 Hyperlipidemia, unspecified (principal); E11.65 Type 2 diabetes mellitus with hyperglycemia; Z79.4 Long term (current) use of insulin
CPT/HCPCS: 36415; 80053; 80061; 83036

== ENCOUNTER 2023-03-15 13:44 | Outpatient (AMB) | payer OTHER, SELFPAY ==
[2023-03-15 13:51] VITALS: BP 126/74; PULSE 95; O2SAT 98; BMI 28.0
--- NOTE | 2023-03-15 13:51 | MHC.PC.OV ---
Vital Signs 03/15/23 13:51 Height 5 ft 3 in Weight 158 lb BMI 28.0 BP 126/74 Blood Pressure Location Lt brachial Position Sitting Pulse 95 Pulse Source Pulse Oximeter Temp Source Skin Pulse Oximetry (%) 98 Oxygen Delivery Method Room Air Intake Visit Reasons: F/U DM, HLD, HTN Fast Food Shift Supervisor Required: Yes Fast Food Shift Supervisor Language: Czech Allergies No Known Allergies Allergy (Verified 03/15/23 14:51) Medication List - Last Reconciled 03/15/23 by FLORIDALMA Bullard acetaminophen 650 mg PO Q6H PRN amitriptyline 40 mg (4 x 10 mg) PO DAILY aspirin 81 mg PO DAILY atorvastatin 80 mg PO BEDTIME canagliflozin (Invokana) 300 mg PO QAM cyclobenzaprine 10 mg PO DAILY PRN docusate sodium 100 mg PO BID PRN duloxetine 30 mg PO DAILY ezetimibe 10 mg PO DAILY flash glucose scanning reader ([employer] Guerda 2 [place]) As directed flash glucose sensor (FreeStyle Guerda 2 Sensor kit) As directed insulin glargine (Lantus Solostar U-100 Insulin) 25 units subcut BEDTIME insulin glargine (Lantus Solostar U-100 Insulin) 45 units subcut DAILY insulin lispro 5 - 10 units (0.05 - 0.1 mL) subcut TID levetiracetam 2,000 mg (2 x 1,000 mg) PO BID 30 days lidocaine 5% 1 patch topical DAILY lisinopril 10 mg PO DAILY meloxicam 1 tab PO DAILY naproxen 500 mg PO BID PRN omega-3 fatty acids 500 mg PO DAILY omeprazole 20 mg PO BID@0630,1630 sitagliptin phosphate (Januvia) 100 mg PO DAILY sucralfate 10 mL PO DAILY@1700 Tobacco use date assessed: 03/15/23 Dental Screening Dental Screen Date: 03/15/23 Did you have a dental visit in the last 12 months?: Yes Did you have a dental problem in the last 6 months where you did not have access to dental care?: No Was dental information given to patient?: Patient has dentist HPI F/U DM, HLD, HTN HPI Details Patient is a 57-year-old female who presents today to follow-up on chronic conditions.? Medical history significant for GERD, chronic constipation, hyperlipidemia, hypertension, diabetes type 2 - has referral to see endocrinology-was not seen yet-will follow-up, depression - will follow-up on counseling referral, seizure disorder - will be seeing Neurology 03/29/2023.? Patient denies shortness of breath or chest pain.? [facility] nurses help with medications at home. Patient reports last mild seizure 2 days ago-she will be seeing Neurology this month-continue with [facility]. Patient has an upcoming diabetic eye exam 04/2023. 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 Patient is a Czech-speaking and Trav was helping with interpretation. ? [facility] Medical History Asthma Depression Diabetes Diabetic retinopathy Encounter to establish care Epilepsy Essential hypertension Gastroparesis Hyperlipidemia Hyperlipidemia LDL goal <100 Hypertension Type 2 diabetes mellitus with hyperglycemia, with long-term current use of insulin Surgical History H/O section H/O esophagogastroduodenoscopy (03/14/18) History of ankle surgery Hx of colonoscopy (~06/2018) Family History Mother Diabetes Father Diabetes Social History Household Members: Spouse, Children and Caregiver Housing: Apartment Do you presently have visiting nurse or other home services: Yes (Rosalio Visiting nurse. [phone], can call in regrads to patients care.) Alcohol intake: never Patient Tobacco Use Status: Never used Tobacco service: No Current occupational status: unemployed Cognitive needs: No Hearing needs: No Vision needs: No Questionnaire Thrive Questionnaire Date Thrive assessed: 11/11/22 AUDIT C Alcohol Use Questionnaire (AUDIT-C) 1. How often do you have a drink containing alcohol?: Never 3. How often do you have six or more drinks on one occasion?: Never Total Score: 0 Score Reviewed/Action Taken: No IRWIN-7 AMB Questionnaire IRWIN-7 Date IRWIN - 7 assessed: 11/11/22 Source: Developed by Drs. Vasu L. SeferinoHarriet archibald, Carlitos Goldstein and colleagues, with an educational shira from [employer]. Review of Systems Const Denies body aches, Denies chills, Denies fever(s) and Denies headache(s) Eyes Denies change in vision ENT Denies dizziness, Denies otalgia, Denies headache(s), Denies nasal discharge, Denies sinus pain and Denies sore throat Card Denies chest pain, Denies edema, Denies lightheadedness and Denies dyspnea Resp Denies cough and Denies dyspnea GI Denies constipation, Denies diarrhea, Denies nausea and Denies vomiting Denies dysuria Musc Reports as per HPI and Denies myalgias Skin/Breast Denies lesions and Denies rash Neuro Denies dizziness and Denies headache(s) Physical exam (Primary Care) Vital Signs: Last Vital Signs Pulse 95 03/15/23 13:51 BP 126/74 03/15/23 13:51 Pulse Ox 98 03/15/23 13:51 Oxygen Delivery Method Room Air 03/15/23 13:51 BMI result Body Mass Index 28.0 Tobacco/Smoking Status: Tobacco use Status Tobacco use date assessed 03/15/23 03/15/23 13:52 Patient Tobacco Use Status Never used Tobacco 03/15/23 13:52 Thrive Assessment: Date of Thrive Assessment Date Thrive assessed 11/11/22 03/15/23 13:52 Const General: cooperative and no acute distress Orientation/consciousness: patient oriented x3 HENMT Head: Yes normocephalic and Yes atraumatic Face and sinus: Yes sinuses nontender Mouth: oropharynx normal and moist mucous membranes Throat: Yes posterior oropharynx normal Eyes General: appearance normal, both eyes and all related structures Pupils: Equal, round and reactive pupils present EOM: EOMs intact bilaterally Neck Neck: Yes normal visual inspection, Yes full ROM and Yes no lymphadenopathy Resp Effort & Inspection: normal respiratory effort and able to speak in complete sentences Auscultation: clear to auscultation bilaterally, no crackles, no rales, no rhonchi and no wheezes Cardio Rate: regular rate Rhythm: regular rhythm Heart sounds: S1 normal heart sound present, S2 normal heart sound present and no murmurs GI Auscultation: normal bowel sounds Skin General skin exam: no rashes or lesions noted Neuro General: patient oriented x3 Cranial nerves: Yes Equal, round and reactive pupils present Gait exam (Neuro): Normal gait present Extrem Other: Bilateral wrist normal to inspection, mild tenderness noted laterally, full range of motion General: Yes full ROM and No edema Assessment and Plan Assessment & Plan (1) Seizure disorder: Code(s): G40.909 - Epilepsy, unspecified, not intractable, without status epilepticus Plan: Patient is on [facility] Neurology appointment 03/29/23 (2) Depression: Code(s): F32.9 - Major depressive disorder, single episode, unspecified Qualifiers: Depression Type: other depression Qualified Code(s): F32.89 - Other specified depressive episodes Plan: Patient has counseling referral - will follow-up Continue amitriptyline and duloxetine (3) Type 2 diabetes mellitus with hyperglycemia, with long-term current use of insulin: Code(s): E11.65 - Type 2 diabetes mellitus with hyperglycemia; Z79.4 - long term care administrator (current) use of insulin Plan: A1c 8.1 02/2023, goal less than 7 Patient has an upcoming diabetic eye exam 04/2023 Will follow-up on endocrinology referral Low-carbohydrate diet Patient is to continue Januvia, insulin lispro, insulin Lantus, and Invokana (4) Essential hypertension: Code(s): I10 - Essential (primary) hypertension Plan: Goal BP equal or less than 140/90 Lisinopril 10 mg daily Low-sodium diet (5) Hyperlipidemia LDL goal <100: Code(s): E78.5 - Hyperlipidemia, unspecified Plan: LDL 111 02/2023 Continue atorvastatin 80 mg at bedtime and Zetia daily Low-cholesterol diet (6) GERD (gastroesophageal reflux disease): Code(s): K21.9 - Gastro-esophageal reflux disease without esophagitis Qualifiers: Esophagitis presence: without esophagitis Qualified Code(s): K21.9 - Gastro-esophageal reflux disease without esophagitis Plan: Omeprazole and sucralfate Do not lay down 2-3 hours after evening meal Avoid GERD trigger foods (7) Bilateral wrist pain: Code(s): M25.531 - Pain in right wrist; M25.532 - Pain in left wrist Plan: Continue Tylenol 650 mg every 6 hours as needed Will refer to OT, follow-up if no improvement after OT Plan Follow-up in 3 months or sooner as needed Orders: Orders Comprehensive [place]. Panel Fast Today E11.65 - Type 2 diabetes mellitus with hyperglycemia, Z79.4 - long term care administrator (current) use of insulin Hemoglobin A1c Today E11.65 - Type 2 diabetes mellitus with hyperglycemia, Z79.4 - penitentiary (current) use of insulin Lipid Panel Today E78.5 - Hyperlipidemia, unspecified Microalbumin, Random (w Creat) Today E11.65 - Type 2 diabetes mellitus with hyperglycemia, Z79.4 - long term care administrator (current) use of insulin OT Evaluation and Treatment Today M25.531 - Pain in right wrist, M25.532 - Pain in left wrist Coding Level of Care Code Est Pt Level 4 (39527) Diagnoses Seizure disorder G40.909 Depression F32.89 Depression Type: other depression Type 2 diabetes mellitus with hyperglycemia, with long-term current use of insulin E11.65; Z79.4 Essential hypertension I10 Hyperlipidemia LDL goal <100 E78.5 GERD (gastroesophageal reflux disease) K21.9 Esophagitis presence: without esophagitis Bilateral wrist pain M25.531; M25.532
== END 2023-03-15 15:05 | disposition home or self-care (01) ==
PROVIDERS: PCP Nurse Practitioner Family; Visit Provider Nurse Practitioner Family
DX: I10 Essential (primary) hypertension (principal); K21.9 Gastro-esophageal reflux disease without esophagitis; Z79.4 Long term (current) use of insulin; E11.65 Type 2 diabetes mellitus with hyperglycemia; G40.909 Epilepsy, unspecified, not intractable, without status epilepticus; F32.89 Other specified depressive episodes; E78.5 Hyperlipidemia, unspecified; M25.531 Pain in right wrist; M25.532 Pain in left wrist
CPT/HCPCS: 99214

== ENCOUNTER 2023-03-22 09:43 | Emergency (ER) | payer OTHER, SELFPAY ==
[2023-03-22 10:28] VITALS: BP 140/82; PULSE 93; RESP 16; TEMP 36.5; O2SAT 98; BMI 28.5
[2023-03-22 11:05] LABS: COVID-19 Test Negative (Negative); IDNOW Serial# 55D5AD1C
--- NOTE | 2023-03-22 13:22 | ED.GENADULT ---
HPI - General Adult General Chief complaint: Headache Stated complaint: Cough/SOB/Rib pain Time Seen by Provider: 03/22/23 12:13 Source: patient and RN notes reviewed Mode of arrival: ambulatory Limitations: no limitations History of Present Illness HPI narrative: This is a 57-year-old female, with a past medical history diabetes, hypertension, hyperlipidemia, presenting to the emergency department with complaints of cough, body aches, congestion x3 days. Patient states that 3 days ago she received her shingles vaccine and states that several hours after she developed the symptoms. Patient denies any chest pain or shortness of breath. Denies abdominal pain, nausea, vomiting or diarrhea. Denies taking any medications at management of current symptoms. Her daughter is sick at home with similar symptoms. No other complaints or concerns at this time. MD complaint: Cough body aches Onset (ago): day(s) Radiation: non-radiation Severity: moderate Quality: aching Pain Consistency: constant Relieving factors: none Exacerbating factors: none Associated symptoms: denies other symptoms Treatments prior to arrival: none Related Data Home Medications Medication Instructions Recorded Confirmed acetaminophen 325 mg tablet 650 mg PO Q6H PRN Pain 08/11/22 03/15/23 docusate sodium 100 mg capsule 100 mg PO BID PRN Constipation 08/11/22 03/15/23 insulin glargine 100 unit/mL (3 25 unit subcut BEDTIME 08/11/22 03/15/23 mL) subcutaneous pen (Lantus Solostar U-100 Insulin) insulin glargine 100 unit/mL (3 45 unit subcut DAILY 08/11/22 03/15/23 mL) subcutaneous pen (Lantus Solostar U-100 Insulin) lidocaine 5 % topical patch 1 patch topical DAILY 08/11/22 03/15/23 meloxicam 15 mg tablet 1 tab PO DAILY 08/11/22 03/15/23 naproxen 500 mg tablet 500 mg PO BID PRN Pain 08/11/22 03/15/23 sucralfate 100 mg/mL oral 10 ml PO DAILY@1700 08/11/22 03/15/23 suspension Previous Rx's Medication Instructions Recorded duloxetine 30 mg capsule,delayed 30 mg PO DAILY #90 caps 12/03/22 release insulin lispro 100 unit/mL 5 - 10 unit (0.05 - 0.1 mL) subcut 12/03/22 subcutaneous pen TID #15 mL omega-3 fatty acids 500 mg capsule 500 mg PO DAILY #90 caps 12/03/22 atorvastatin 80 mg tablet 80 mg PO BEDTIME #90 tabs 12/10/22 lisinopril 10 mg tablet 10 mg PO DAILY #90 tabs 12/14/22 flash glucose scanning reader #1 ea 12/16/22 (FreeStyle Guerda 2 [place]) aspirin 81 mg tablet,delayed 81 mg PO DAILY #90 tabs 12/31/22 release sitagliptin phosphate 100 mg 100 mg PO DAILY #90 tabs 12/31/22 tablet (Januvia) omeprazole 20 mg capsule,delayed 20 mg PO BID@0630,1630 #90 caps 01/19/23 release flash glucose sensor (FreeStyle #1 ea 01/29/23 Guerda 2 Sensor kit) canagliflozin 300 mg tablet 300 mg PO QAM #90 tabs 02/08/23 (Invokana) cyclobenzaprine 10 mg tablet 10 mg PO DAILY PRN muscle spasm 02/08/23 #30 tabs ezetimibe 10 mg tablet 10 mg PO DAILY #90 tabs 02/08/23 amitriptyline 10 mg tablet 40 mg (4 x 10 mg) PO DAILY #120 03/08/23 tabs levetiracetam 1,000 mg tablet 2,000 mg (2 x 1,000 mg) PO BID 30 03/11/23 days #120 tabs acetaminophen 650 mg 650 mg PO Q8H PRN fever or pain 03/22/23 tablet,extended release (Tylenol 8 #30 tabs Hour) benzonatate 100 mg capsule 100 mg PO TID #20 caps 03/22/23 ibuprofen 600 mg tablet 600 mg PO Q6H PRN fever or pain 03/22/23 #30 tabs Allergies Allergy/AdvReac Type Severity Reaction Status Date / Time No Known Allergies Allergy Verified 03/22/23 10:27 Review of Systems Review of Systems: Yes all other systems are reviewed and are negative Constitutional: Constitutional: Reports as per [facility] Past Medical History Attestation statement: The following information was validated with the patient. Medical History Encounter to establish care Diabetic retinopathy Type 2 diabetes mellitus with hyperglycemia, with long-term current use of insulin Essential hypertension Hyperlipidemia LDL goal <100 Gastroparesis Hyperlipidemia Depression Asthma Epilepsy Diabetes Hypertension Surgical History Hx of colonoscopy (~06/2018) H/O esophagogastroduodenoscopy (03/14/18) History of ankle surgery H/O section Family History Family History Mother Diabetes Father Diabetes Social History Social History Household Members: Spouse, Children and Caregiver Housing: Apartment Do you presently have visiting nurse or other home services: Yes ([facility] Visiting nurse. [phone], can call in regrads to patients care.) Alcohol intake: never Patient Tobacco Use Status: Never used Tobacco Advance Directives: No Advance Directives Information Provided: Yes service: No Current occupational status: unemployed Cognitive needs: No Hearing needs: No Vision needs: No Physical Exam ED Vital Signs: Vital Signs - 24 hr 03/22/23 10:28 Temperature 97.7 F Pulse Rate 93 Respiratory Rate 16 Blood Pressure 140/82 H Pulse Oximetry 98 Oxygen Delivery Method Room Air BMI result Body Mass Index 28.5 Const General: cooperative, comfortable and no acute distress Orientation/consciousness: patient oriented x3 Limitations: no limitations HENMT Other: Oropharynx without any evidence of erythema, edema, no tonsillar hypertrophy or exudates. Uvula midline. No trismus, drooling, or dysphonia. Head: Yes normal to inspection, Yes normocephalic and Yes atraumatic Ears: hearing grossly normal bilaterally General nose exam: Normal external nose present Face and sinus: Yes normal facial exam Mouth: Normal oral and palatal mucosa present, oropharynx normal and moist mucous membranes Throat: Yes posterior oropharynx normal Eyes General: appearance normal, both eyes and all related structures Eyelids: Yes eyelids normal Conjunctivae: conjunctivae normal Sclerae: sclerae normal Pupils: Equal, round and reactive pupils present EOM: EOMs intact bilaterally Neck Neck: Yes normal visual inspection, Yes full ROM and Yes no lymphadenopathy Lymphatic: no lymphadenopathy noted Chest Chest palpation & inspection: normal inspection of the chest Resp Effort & Inspection: normal respiratory effort and able to speak in complete sentences Auscultation: clear to auscultation bilaterally, no crackles, no rales, no rhonchi and no wheezes Cardio Rate: regular rate Rhythm: regular rhythm Heart sounds: S1 normal heart sound present and S2 normal heart sound present GI Other: Abdomen is soft, nontender, nondistended Inspection: Yes normal to inspection Skin General skin exam: no rashes or lesions noted Trauma: no lacerations or abrasions Wounds: no wounds Neuro General: patient oriented x3 and moves all extremities Cranial nerves: Yes Equal, round and reactive pupils present Extrem General: Yes normal to inspection Right upper extremity: normal to inspection Left upper extremity: normal to inspection Right lower extremity: normal to inspection Left lower extremity: normal to inspection Medical Decision Making Medical Decision Making [facility] Narrative: This is a 57-year-old female presenting to the emergency department for evaluation of body aches, cough, congestion x3 days. Patient states that 3 days ago she received her shingles vaccine, several hours later she developed her symptoms. Her daughter is sick at home with similar symptoms. On arrival, patient mildly hypertensive at 140/82 all other vital signs within normal limits. Differential diagnoses include viral illness, adverse vaccine reaction, bronchitis, pneumonia. On examination, patient is nontoxic appearing, lungs are clear to auscultation bilaterally, normal ENT exam. Symptoms consistent with viral syndrome versus vaccine reaction. Patient tested negative for COVID today. Discharge patient on ibuprofen, Tylenol, and warm. Given return precautions. Stable for discharge Differential Diagnosis Differential Diagnoses: The differential diagnosis associated with the presentation includes See above Lab Data [facility] Lab Attestation statement: I reviewed the patient's lab results. COVID negative Labs: Lab Results 03/22/23 Range/Units 10:35 COVID-19 ([facility]) Negative (Negative) COVID-19 Clin Com See Note Discharge Plan Discharge Clinical Impression: Acute upper respiratory infection Patient Disposition: Home, Self-Care Instructions: Upper Respiratory Infection (ED) Additional Instructions: You tested negative for COVID today. Your symptoms are likely due to a virus. You do not need antibiotics. Please take ibuprofen and/or Tylenol as needed for symptoms. Take prescribed cough medication as directed. Drink plenty of fluids get plenty of rest If any new or worsening symptoms occur including but not limited to chest pain, shortness of breath, please return for re-evaluation. Prescriptions: New ibuprofen 600 mg tablet 600 mg PO Q6H PRN (Reason: fever or pain) Qty: 30 0RF acetaminophen [Tylenol 8 Hour] 650 mg tablet extended release 650 mg PO Q8H PRN (Reason: fever or pain) Qty: 30 0RF benzonatate 100 mg capsule 100 mg PO TID Qty: 20 0RF No Action insulin lispro 100 unit/mL insulin pen 5 - 10 unit subcut TID Qty: 15 2RF Rx Instructions: 5 units if BG <250, 10 units if Bg > 250 duloxetine 30 mg capsule,delayed release(DR/EC) 30 mg PO DAILY Qty: 90 0RF omega-3 fatty acids 500 mg capsule 500 mg PO DAILY Qty: 90 0RF atorvastatin 80 mg tablet 80 mg PO BEDTIME Qty: 90 1RF lisinopril 10 mg tablet 10 mg PO DAILY Qty: 90 1RF (DME) FreeStyle Guerda 2 [place] Misc See Rx Instructions .Route Qty: 1 0RF Rx Instructions: As directed Januvia 100 mg tablet 100 mg PO DAILY Qty: 90 0RF aspirin 81 mg tablet,delayed release (DR/EC) 81 mg PO DAILY Qty: 90 0RF omeprazole 20 mg capsule,delayed release(DR/EC) 20 mg PO BID@0630,1630 Qty: 90 0RF (DME) FreeStyle Guerda 2 Sensor Kit See Rx Instructions .Route Qty: 1 3RF Rx Instructions: As directed ezetimibe 10 mg tablet 10 mg PO DAILY Qty: 90 1RF Invokana 300 mg tablet 300 mg PO QAM Qty: 90 1RF cyclobenzaprine 10 mg tablet 10 mg PO DAILY PRN (Reason: muscle spasm) Qty: 30 1RF amitriptyline 10 mg tablet 40 mg PO DAILY Qty: 120 1RF levetiracetam 1,000 mg tablet 2,000 mg PO BID 30 Days Qty: 120 0RF meloxicam 15 mg tablet 1 tab PO DAILY insulin glargine [Lantus Solostar U-100 Insulin] 100 unit/mL (3 mL) insulin pen 25 unit subcut BEDTIME insulin glargine [Lantus Solostar U-100 Insulin] 100 unit/mL (3 mL) insulin pen 45 unit subcut DAILY acetaminophen 325 mg Tablet 650 mg PO Q6H PRN (Reason: Pain) sucralfate 100 mg/mL Suspension 10 ml PO DAILY@1700 lidocaine 5 % Adhesive Patch,Medicated 1 patch TOPICAL DAILY Rx Instructions: leave on most painful area for up to 12 hrs docusate sodium 100 mg Capsule 100 mg PO BID PRN (Reason: Constipation) naproxen 500 mg Tablet 500 mg PO BID PRN (Reason: Pain) Discharge Date/Time: 03/22/23 13:38
== END 2023-03-22 13:38 | disposition home or self-care (01) ==
PROVIDERS: Emergency Provider Emergency Medicine; PCP Nurse Practitioner Family
DX: J06.9 Acute upper respiratory infection, unspecified (principal); R05.9 Cough, unspecified; Z20.822 Contact with and (suspected) exposure to COVID-19; E11.9 Type 2 diabetes mellitus without complications; I10 Essential (primary) hypertension; E78.5 Hyperlipidemia, unspecified; Z79.4 Long term (current) use of insulin; Z79.899 Other long term (current) drug therapy
CPT/HCPCS: 87635; 99282; 99283

== ENCOUNTER 2023-04-07 08:18 | Outpatient (REF) | payer OTHER, SELFPAY ==
[2023-04-07 09:25] LABS: Alanine Aminotransferase 11 U/L (0-31); Albumin Level 3.8 g/dL (3.5-5.0); Alkaline Phosphatase 119 U/L (39-117); Anion Gap 11 (12-20); Aspartate Amino Transferase 14 U/L (5-31); Bilirubin Total 0.6 mg/dL (0.0-1.0); Blood Urea Nitrogen 19 mg/dL (9-16); Calcium 9.7 mg/dL (8.4-10.2); Carbon Dioxide 29 mmol/L (22-29); Chloride 104 mmol/L (96-108); Cholesterol 233 mg/dL (<200); Estimated Glomerular Filt Rate > 60; Glucose Fasting 290 mg/dL (60-99); HDL Cholesterol 59 mg/dL (>40); LDL Cholesterol Calculated 159 mg/dL (<100); Potassium 4.3 mmol/L (3.3-5.1); Sodium 140 mmol/L (135-145); Total Protein 7.5 g/dL (6.5-8.0); Triglycerides 79 mg/dL (<150)
[2023-04-07 09:52] LABS: Estimated Average Glucose 183 mg/dL
== END 2023-04-07 08:19 | disposition home or self-care (01) ==
LOC: HO.LAB 08:18
PROVIDERS: PCP Nurse Practitioner Family; Visit Provider Nurse Practitioner Family
DX: E11.65 Type 2 diabetes mellitus with hyperglycemia (principal); E78.5 Hyperlipidemia, unspecified; Z79.4 Long term (current) use of insulin
CPT/HCPCS: 36415; 80053; 80061; 83036

== ENCOUNTER 2023-04-12 09:58 | Outpatient (REF) | payer OTHER, SELFPAY ==
[2023-04-12 10:58] LABS: Creatinine Urine 128.11 mg/dL; Microalbum/Creatinine Ratio Ur 224.8 ug/mg cr (<30)
== END 2023-04-12 09:59 | disposition home or self-care (01) ==
LOC: HO.LNP 09:58
PROVIDERS: Visit Provider Nurse Practitioner Family
DX: E11.65 Type 2 diabetes mellitus with hyperglycemia (principal)
CPT/HCPCS: 82043; 82570

== ENCOUNTER 2023-05-23 19:04 | Emergency (ER) | payer OTHER, SELFPAY ==
--- NOTE | ~2023-05-23 | XR_ITS ---
EXAMINATION: XR SHOULDER, RIGHT CLINICAL INFORMATION: Deformity and fall COMPARISON: None available. TECHNIQUE: Two views of the right shoulder. FINDINGS: Humeral head appears to be well-seated in the glenoid fossa. I do not appreciate any acute fracture or dislocation. Mild hypertrophic degenerative changes in the acromioclavicular joint. Visualized right chest and ribs unremarkable XR/XR shoulder RT min 2V IMPRESSION: Mild degenerative changes but no acute fracture or dislocation.
--- NOTE | ~2023-05-23 | CT_ITS ---
EXAMINATION: CT HEAD WITHOUT CONTRAST CLINICAL INFORMATION: Fall. Head trauma. COMPARISON: Previous head CT most recent August 2022 TECHNIQUE: Contiguous axial imaging was performed from the skull base to vertex without intravenous administration of contrast. This CT examination was performed using dose optimization techniques as appropriate, variously including the following: *Automated exposure control *Adjustment of mA and/or kV according to patient size (this includes techniques or standardized protocols for targeted exams where dose is matched to indication/reason for exam; i.e. extremities or head) *Use of iterative reconstruction technique DLP: 660 mGy-cm FINDINGS: There is no evidence of an extra-axial collection. There is no evidence of intra-axial or extra-axial hemorrhage. The ventricles and extra-axial CSF spaces are appropriate. Hartley-white matter differentiation is normal. No mass, mass effect is seen. No skull fracture. Visualized paranasal sinuses, mastoid air cells and middle ears are clear. Soft tissue swelling over the left occipital bone. CT/CT head/brain wo IV con IMPRESSION: No acute intracranial findings. Soft tissue swelling over the left occipital bone
--- NOTE | ~2023-05-23 | CT_ITS ---
EXAMINATION: CT CERVICAL SPINE WITHOUT CONTRAST CLINICAL INFORMATION: Fall. Head trauma. COMPARISON: Previous CT August 2022 TECHNIQUE: Axial images through the cervical spine without IV contrast. Sagittal and coronal reconstructions on the technologist workstation were performed. This CT examination was performed using dose optimization techniques as appropriate, variously including the following: *Automated exposure control *Adjustment of mA and/or kV according to patient size (this includes techniques or standardized protocols for targeted exams where dose is matched to indication/reason for exam; i.e. extremities or head) *Use of iterative reconstruction technique DLP: 319 mGy-cm FINDINGS: Bone alignment is normal. No fracture or dislocation. Degenerative spondylosis and degenerative disc disease at C5-C6. Right facet arthritis at C7-T1. Prevertebral soft tissues are normal. Visualized lung apices are clear. CT/CT cervical spine wo IV con IMPRESSION: No fracture or dislocation. Mild degenerative changes. Fleischner guidelines were followed.
[2023-05-23 19:16] VITALS: BP 160/90; PULSE 105; O2SAT 98
[2023-05-23 19:49] VITALS: BMI 31.1
--- NOTE | 2023-05-23 19:51 | PC.NURSE ---
UTO VS during triage as pt was taken to CT.
--- NOTE | 2023-05-23 20:42 | ED.FALL ---
HPI - Fall General Chief Complaint: Fall Stated Complaint: FALL DOWN STAIRS + HEAD SRIKE Time Seen by Provider: 05/23/23 20:32 Source: patient Mode of arrival: EMS Limitations: no limitations History of Present Illness HPI Narrative: Patient apparently slipped and fell down 4 stairs hitting her in the back of the head to the dose no loss of consciousness complaining of pain in the right shoulder and mild headache Related Data Home Medications Medication Instructions Recorded Confirmed acetaminophen 325 mg tablet 650 mg PO Q6H PRN Pain 08/11/22 03/15/23 docusate sodium 100 mg capsule 100 mg PO BID PRN Constipation 08/11/22 03/15/23 insulin glargine 100 unit/mL (3 25 unit subcut BEDTIME 08/11/22 03/15/23 mL) subcutaneous pen (Lantus Solostar U-100 Insulin) insulin glargine 100 unit/mL (3 45 unit subcut DAILY 08/11/22 03/15/23 mL) subcutaneous pen (Lantus Solostar U-100 Insulin) lidocaine 5 % topical patch 1 patch topical DAILY 08/11/22 03/15/23 naproxen 500 mg tablet 500 mg PO BID PRN Pain 08/11/22 03/15/23 sucralfate 100 mg/mL oral 10 ml PO DAILY@1700 08/11/22 03/15/23 suspension Previous Rx's Medication Instructions Recorded omega-3 fatty acids 500 mg capsule 500 mg PO DAILY #90 caps 12/03/22 flash glucose scanning reader #1 ea 12/16/22 (FreeUnderground Cellaryle Guerda 2 [place]) canagliflozin 300 mg tablet 300 mg PO QAM #90 tabs 02/08/23 (Invokana) ezetimibe 10 mg tablet 10 mg PO DAILY #90 tabs 02/08/23 acetaminophen 650 mg 650 mg PO Q8H PRN fever or pain 03/22/23 tablet,extended release (Tylenol 8 #30 tabs Hour) aspirin 81 mg tablet,delayed 81 mg PO DAILY #90 tabs 03/22/23 release atorvastatin 80 mg tablet 80 mg PO BEDTIME #90 tabs 03/22/23 benzonatate 100 mg capsule 100 mg PO TID #20 caps 03/22/23 cyclobenzaprine 10 mg tablet 10 mg PO DAILY PRN muscle spasm 03/22/23 #30 tabs duloxetine 30 mg capsule,delayed 30 mg PO DAILY #90 caps 03/22/23 release ibuprofen 600 mg tablet 600 mg PO Q6H PRN fever or pain 03/22/23 #30 tabs insulin lispro 100 unit/mL 5 - 10 unit (0.05 - 0.1 mL) subcut 03/22/23 subcutaneous pen TID #15 mL lisinopril 10 mg tablet 10 mg PO DAILY #90 tabs 03/22/23 sitagliptin phosphate 100 mg 100 mg PO DAILY #90 tabs 03/22/23 tablet (Januvia) meloxicam 15 mg tablet 15 mg PO DAILY #30 tabs 03/30/23 omeprazole 20 mg capsule,delayed 20 mg PO BID@0630,1630 #180 caps 03/30/23 release flash glucose sensor (FreeStyle #1 ea 04/03/23 Guerda 2 Sensor kit) levetiracetam 1,000 mg tablet 2,000 mg (2 x 1,000 mg) PO BID 30 05/12/23 days #120 tabs amitriptyline 10 mg tablet 40 mg (4 x 10 mg) PO DAILY #120 05/17/23 tabs tramadol 50 mg tablet 50 mg PO Q6H PRN pain #20 tabs 05/23/23 Allergies Allergy/AdvReac Type Severity Reaction Status Date / Time No Known Allergies Allergy Verified 05/23/23 19:48 Review of Systems Review of Systems: Yes all other systems are reviewed and are negative [facility] Past Medical History Medical History Encounter to establish care Diabetic retinopathy Type 2 diabetes mellitus with hyperglycemia, with long-term current use of insulin Essential hypertension Hyperlipidemia LDL goal <100 Gastroparesis Hyperlipidemia Depression Asthma Epilepsy Diabetes Hypertension Surgical History Hx of colonoscopy (~06/2018) H/O esophagogastroduodenoscopy (03/14/18) History of ankle surgery H/O section Family History Family History Mother Diabetes Father Diabetes Social History Social History Household Members: Spouse, Children and Caregiver Housing: Apartment Do you presently have visiting nurse or other home services: Yes ([facility] Visiting nurse. [phone], can call in regrads to patients care.) Alcohol intake: never Patient Tobacco Use Status: Never used Tobacco Advance Directives: No Advance Directives Information Provided: No service: No Current occupational status: unemployed Cognitive needs: No Hearing needs: No Vision needs: No Physical Exam Vital Signs: Vital Signs: Last Vital Signs Temp 98.9 F 05/23/23 21:28 Pulse 105 H 05/23/23 21:28 Resp 18 05/23/23 21:28 BP 159/80 H 05/23/23 21:28 Pulse Ox 95 05/23/23 21:28 O2 Del Method Room Air 05/23/23 21:28 BMI result Body Mass Index 31.1 Appearance: Alert. Oriented X3. No acute distress. Eyes: PERRLA, No Nystagmus ENT: Pharynx normal. Oral Mucosa moist soft tissue swelling right occipital area Neck: Normal inspection. Neck supple. No midline tenderness in cervical collar CVS: Normal heart rate and rhythm. Pulses normal. Respiratory: No respiratory distress. Equal air entry bilateral, no wheezing/rales/rhonchi Abdomen: Soft and nontender. Bowel sounds are present, no mass palpable, no CVA tenderness Skin: Skin warm and dry. Normal skin color. Normal skin turgor. Extremities: No lower extremity edema. No calf tenderness diffuse tenderness right shoulder no deformity neurovascular intact Neuro: Oriented X 3. No motor deficit. No sensory deficit.No cerebellar signs , cranial nerves II-XII intact Medications Administered Discontinued Medications Generic Name Dose Route Start Last Admin Trade Name Freq PRN Reason Stop Dose Admin Tramadol HCl 50 mg 05/23/23 22:19 05/23/23 22:45 Tramadol Hcl 50 Mg Tablet PO 05/23/23 22:20 50 mg ONCE ONE Administration Medical Decision Making Medical Decision Making MDM Narrative: Patient's CT scan of the head and C-spine negative right shoulder x-ray also negative for anything acute patient moving her right shoulder very well no signs of injury at this time patient discharged home on tramadol Differential Diagnosis Differential Diagnoses: The differential diagnosis associated with the presentation includes Closed head injury/subdural hematoma/subarachnoid bleed/ICH/right shoulder fracture Independent Interpretation I performed an independent interpretation of an: Plain X-Ray and CT Scan Radiology Impression Discussion of test interpretation with radiology: I have reviewed the radiologist's reading. Discharge Plan Discharge Clinical Impression: Closed head injury, Contusion of right scapula Patient Disposition: Home, Self-Care Instructions: Head Injury (ED), Shoulder Pain (ED) Additional Instructions: Care and cautions as advised Tramadol for pain Your x-rays negative for fracture and head CT scan was negative Prescriptions: New tramadol 50 mg tablet 50 mg PO Q6H PRN (Reason: pain) Qty: 20 0RF No Action omega-3 fatty acids 500 mg capsule 500 mg PO DAILY Qty: 90 0RF (DME) FreeStyle Guerda 2 [place] Misc See Rx Instructions .Route Qty: 1 0RF Rx Instructions: As directed ezetimibe 10 mg tablet 10 mg PO DAILY Qty: 90 1RF Invokana 300 mg tablet 300 mg PO QAM Qty: 90 1RF aspirin 81 mg tablet,delayed release (DR/EC) 81 mg PO DAILY Qty: 90 0RF duloxetine 30 mg capsule,delayed release(DR/EC) 30 mg PO DAILY Qty: 90 0RF cyclobenzaprine 10 mg tablet 10 mg PO DAILY PRN (Reason: muscle spasm) Qty: 30 1RF lisinopril 10 mg tablet 10 mg PO DAILY Qty: 90 1RF Januvia 100 mg tablet 100 mg PO DAILY Qty: 90 0RF insulin lispro 100 unit/mL insulin pen 5 - 10 unit subcut TID Qty: 15 2RF Rx Instructions: 5 units if BG <250, 10 units if Bg > 250 atorvastatin 80 mg tablet 80 mg PO BEDTIME Qty: 90 1RF omeprazole 20 mg capsule,delayed release(DR/EC) 20 mg PO BID@0630,1630 Qty: 180 3RF meloxicam 15 mg tablet 15 mg PO DAILY Qty: 30 2RF (DME) FreeStyle Guerda 2 Sensor Kit See Rx Instructions .Route Qty: 1 3RF Rx Instructions: As directed levetiracetam 1,000 mg tablet 2,000 mg PO BID 30 Days Qty: 120 0RF amitriptyline 10 mg tablet 40 mg PO DAILY Qty: 120 1RF insulin glargine [Lantus Solostar U-100 Insulin] 100 unit/mL (3 mL) insulin pen 25 unit subcut BEDTIME insulin glargine [Lantus Solostar U-100 Insulin] 100 unit/mL (3 mL) insulin pen 45 unit subcut DAILY acetaminophen 325 mg Tablet 650 mg PO Q6H PRN (Reason: Pain) sucralfate 100 mg/mL Suspension 10 ml PO DAILY@1700 lidocaine 5 % Adhesive Patch,Medicated 1 patch TOPICAL DAILY Rx Instructions: leave on most painful area for up to 12 hrs docusate sodium 100 mg Capsule 100 mg PO BID PRN (Reason: Constipation) naproxen 500 mg Tablet 500 mg PO BID PRN (Reason: Pain) ibuprofen 600 mg tablet 600 mg PO Q6H PRN (Reason: fever or pain) Qty: 30 0RF acetaminophen [Tylenol 8 Hour] 650 mg tablet extended release 650 mg PO Q8H PRN (Reason: fever or pain) Qty: 30 0RF benzonatate 100 mg capsule 100 mg PO TID Qty: 20 0RF
[2023-05-23 21:28] VITALS: BP 159/80; PULSE 105; RESP 18; TEMP 37.2; O2SAT 95
[2023-05-23] MEDS: traMADoL HCL 50 MG TABLET PO (22:45)
== END 2023-05-23 22:45 | disposition home or self-care (01) ==
PROVIDERS: Emergency Provider Internal Medicine
DX: S09.90XA Unspecified injury of head, initial encounter (principal); S40.011A Contusion of right shoulder, initial encounter; W10.9XXA Fall (on) (from) unspecified stairs and steps, initial encounter; Y93.9 Activity, unspecified; Y92.9 Unspecified place or not applicable; Y99.9 Unspecified external cause status; G40.909 Epilepsy, unspecified, not intractable, without status epilepticus; R51.9 Headache, unspecified; M25.511 Pain in right shoulder; I10 Essential (primary) hypertension; E11.9 Type 2 diabetes mellitus without complications; E78.5 Hyperlipidemia, unspecified
CPT/HCPCS: 70450; 72125; 73030; 99284

== ENCOUNTER 2023-06-06 13:30 | Emergency (ER) | payer OTHER, SELFPAY ==
[2023-06-06 13:47] VITALS: BP 137/84; BP 151/85; PULSE 100; PULSE 102; RESP 16; TEMP 37; O2SAT 96; BMI 28.7
[2023-06-06 13:47] LABS: Glucose, Whole Blood 540 mg/dL (60-115)
--- NOTE | 2023-06-06 14:01 | PC.NURSE ---
pt a&o x4, pleasant, calm, and cooperative. bangladeshi speaking only. pt speaking in full complete sentences with interpreter and translator at bedside. 20G IV placed to LAC. labs drawn and sent. awaiting medication orders from provider. vss. rr even/unlabored. call elder within pt reach. plan of care ongoing.
--- NOTE | 2023-06-06 14:05 | ED.GENADULT ---
HPI - General Adult General Chief complaint: General Medical Stated complaint: HIGH BS 583,CHEST PAIN PER EMS Time Seen by Provider: 06/06/23 13:56 Source: patient and EMS Mode of arrival: EMS Limitations: language barrier History of Present Illness HPI narrative: patient states that since , her pharmacy will not give her insulin Onset (ago): day(s) Severity: moderate Related Data Home Medications Medication Instructions Recorded Confirmed acetaminophen 325 mg tablet 650 mg PO Q6H PRN Pain 08/11/22 03/15/23 docusate sodium 100 mg capsule 100 mg PO BID PRN Constipation 08/11/22 03/15/23 insulin glargine 100 unit/mL (3 25 unit subcut BEDTIME 08/11/22 03/15/23 mL) subcutaneous pen (Lantus Solostar U-100 Insulin) insulin glargine 100 unit/mL (3 45 unit subcut DAILY 08/11/22 03/15/23 mL) subcutaneous pen (Lantus Solostar U-100 Insulin) lidocaine 5 % topical patch 1 patch topical DAILY 08/11/22 03/15/23 naproxen 500 mg tablet 500 mg PO BID PRN Pain 08/11/22 03/15/23 sucralfate 100 mg/mL oral 10 ml PO DAILY@1700 08/11/22 03/15/23 suspension Previous Rx's Medication Instructions Recorded omega-3 fatty acids 500 mg capsule 500 mg PO DAILY #90 caps 12/03/22 canagliflozin 300 mg tablet 300 mg PO QAM #90 tabs 02/08/23 (Invokana) ezetimibe 10 mg tablet 10 mg PO DAILY #90 tabs 02/08/23 acetaminophen 650 mg 650 mg PO Q8H PRN fever or pain 03/22/23 tablet,extended release (Tylenol 8 #30 tabs Hour) aspirin 81 mg tablet,delayed 81 mg PO DAILY #90 tabs 03/22/23 release atorvastatin 80 mg tablet 80 mg PO BEDTIME #90 tabs 03/22/23 benzonatate 100 mg capsule 100 mg PO TID #20 caps 03/22/23 cyclobenzaprine 10 mg tablet 10 mg PO DAILY PRN muscle spasm 03/22/23 #30 tabs duloxetine 30 mg capsule,delayed 30 mg PO DAILY #90 caps 03/22/23 release ibuprofen 600 mg tablet 600 mg PO Q6H PRN fever or pain 03/22/23 #30 tabs insulin lispro 100 unit/mL 5 - 10 unit (0.05 - 0.1 mL) subcut 03/22/23 subcutaneous pen TID #15 mL lisinopril 10 mg tablet 10 mg PO DAILY #90 tabs 03/22/23 sitagliptin phosphate 100 mg 100 mg PO DAILY #90 tabs 03/22/23 tablet (Januvia) meloxicam 15 mg tablet 15 mg PO DAILY #30 tabs 03/30/23 omeprazole 20 mg capsule,delayed 20 mg PO BID@0630,1630 #180 caps 03/30/23 release levetiracetam 1,000 mg tablet 2,000 mg (2 x 1,000 mg) PO BID 30 05/12/23 days #120 tabs amitriptyline 10 mg tablet 40 mg (4 x 10 mg) PO DAILY #120 05/17/23 tabs tramadol 50 mg tablet 50 mg PO Q6H PRN pain #20 tabs 05/23/23 flash glucose scanning reader #1 ea 06/05/23 (FreeStyle Guerda 2 [place]) flash glucose sensor (FreeStyle #1 ea 06/05/23 Guerda 2 Sensor kit) insulin glargine 100 unit/mL (3 25 unit (0.25 mL) subcut QAM #15 mL 06/06/23 mL) subcutaneous pen (Lantus Solostar U-100 Insulin) insulin lispro 100 unit/mL 1 sliding scale dose subcut 06/06/23 subcutaneous pen (Admelog SoloStar USEASDIRECTD #15 mL U-100 Insulin lispro) Allergies Allergy/AdvReac Type Severity Reaction Status Date / Time No Known Allergies Allergy Verified 05/23/23 19:48 Review of Systems Review of Systems: Yes all other systems are reviewed and are negative Neurologic: Denies Sensory deficit (Neuro) PMFSH Past Medical History Medical History Encounter to establish care Diabetic retinopathy Type 2 diabetes mellitus with hyperglycemia, with long-term current use of insulin Essential hypertension Hyperlipidemia LDL goal <100 Gastroparesis Hyperlipidemia Depression Asthma Epilepsy Diabetes Hypertension Surgical History Hx of colonoscopy (~06/2018) H/O esophagogastroduodenoscopy (03/14/18) History of ankle surgery H/O section Family History Family History Mother Diabetes Father Diabetes Social History Household Members: Spouse, Children and Caregiver Housing: Apartment Do you presently have visiting nurse or other home services: Yes ([facility] Visiting nurse. [phone], can call in regrads to patients care.) Alcohol intake: never Patient Tobacco Use Status: Never used Tobacco Smoked in Last 30 Days: No Use of substances other than those prescribed or required for medical reasons: No Advance Directives: No Advance Directives Information Provided: Yes service: No Current occupational status: unemployed Cognitive needs: No Hearing needs: No Vision needs: No Physical Exam ED Vital Signs: Vital Signs - 24 hr 06/06/23 13:47 Temperature 98.6 F Pulse Rate 100 Respiratory Rate 16 Blood Pressure 151/85 H Pulse Oximetry 96 Oxygen Delivery Method Room Air BMI result Body Mass Index 28.7 Const General: healthy appearing Nutritional Appearance: average body habitus Orientation/consciousness: oriented to person and patient oriented x3 Limitations: no limitations HENMT Head: Yes normal to inspection Ears: external ears normal General nose exam: Normal external nose present Mouth: Normal oral and palatal mucosa present and oropharynx normal Throat: Yes posterior oropharynx normal Eyes General: appearance normal, both eyes and all related structures Neck Neck: Yes normal visual inspection Chest Chest palpation & inspection: normal inspection of the chest Resp Auscultation: clear to auscultation bilaterally Cardio Jugular venous distension: no JVD Rate: regular rate Rhythm: regular rhythm Heart sounds: S1 normal heart sound present and S2 normal heart sound present GI Inspection: Yes normal to inspection Palpation (GI): Soft to palpation, nontender and No hepatosplenomegaly present Auscultation: normal bowel sounds General: Yes no CVA tenderness Back/Spine/Pelvis Back: no CVA tenderness Skin General skin exam: no rashes or lesions noted Neuro General: oriented to person and patient oriented x3 Cranial nerves: Yes CN's II-XII intact bilaterally Motor exam (neuro): 5/5 motor strength present throughout Sensory Exam: No Sensory deficit (Neuro) Extrem General: Yes normal to inspection Psych Appearance: grossly normal Course Reevaluation(s) Reevaluation #1: pharmacy will accept insulin script will dc home, no evidence of a gap or acidosis Time: 16:28 Medications Administered Discontinued Medications Generic Name Dose Route Start Last Admin Trade Name Freq PRN Reason Stop Dose Admin Sodium Chloride 1,000 mls @ 500 mls/hr 06/06/23 14:15 06/06/23 14:35 Ns IVCONT 06/06/23 16:14 500 mls/hr .Q2H AMINTA Administration Insulin Glargine 25 unit 06/06/23 15:27 06/06/23 16:00 Insulin Glargine,Hum.Rec.Anlog 100 Unit/Ml 10 Ml Vial SUBCUT 06/06/23 15:28 25 unit ONCE ONE Administration Insulin Human Lispro 5 unit 06/06/23 14:06 06/06/23 14:33 Insulin Lispro 100 Unit/Ml 3 Ml Vial SUBCUT 06/06/23 14:07 5 unit ONCE ONE Administration Insulin Human Regular 10 unit 06/06/23 14:06 06/06/23 14:33 Insulin Regular, Human 100 Unit/Ml 3 Ml Vial IVPUSH 06/06/23 14:07 10 unit ONCE ONE Administration Medical Decision Making Differential Diagnosis Differential Diagnoses: The differential diagnosis associated with the presentation includes (dka, hyperglycemia, acidosis, electrolyte abnormalities) Admission/Observation Consideration of admission/observation: Escalation of care including admission/observation considered (upon arrival admission was considered) Consult Healthcare Provider Management of the patient was discussed with: Brand Marketing Specialist (case management) Lab Data 06/06/23 14:05 06/06/23 14:05 Labs: Lab Results 06/06/23 06/06/23 06/06/23 Range/Units 13:41 14:05 14:54 WBC 6.8 (4.8-10.8) X10*3/uL RBC 3.71 L (4.20-5.50) X10*6/uL Hgb 10.9 L (12.0-16.0) g/dl Hct 32.5 L (37.0-47.0) % MCV 87.6 (80.0-98.0) fL MCH 29.4 (27.0-33.0) pg MCHC 33.5 (31.0-35.0) g/dl RDW 12.6 (11.0-16.0) % Plt Count 253 (160-400) X10*3/uL MPV 10.2 (9.4-12.3) fL Immature Gran % (Auto) 0.6 H (0.0-0.4) % Neut % (Auto) 68.5 (45-73) % Lymph % (Auto) 22.8 (20-40) % [place] % (Auto) 4.8 (2-11) % Eos % (Auto) 2.9 (0-4) % Baso % (Auto) 0.4 (0-2) % Lymph # (Auto) 1.6 (1.2-4.9) X10*3/uL [place] # (Auto) 0.3 (0.1-1.2) X10*3/uL Eos # (Auto) 0.2 (0.0-0.4) X10*3/uL Baso # (Auto) 0.0 (0.0-0.2) X10*3/uL Abs Immat Gran (auto) 0.04 H (0.00-0.03) X10*3/uL Absolute Neuts (auto) 4.7 (2.0-8.3) x10*3/uL Absolute Nucleated RBC 0.000 (0.0-0.012) X10*3/uL Nucleated RBC % (auto) 0.0 (0.0-0.2) /100WBC Sodium 137 (135-145) mmol/L Potassium 4.8 (3.3-5.1) mmol/L Chloride 101 (96-108) mmol/L Carbon Dioxide 30 H (22-29) mmol/L Anion Gap 11 L (12-20) BUN 23 H (9-16) mg/dL Creatinine 1.18 (0.5-1.4) mg/dL Estim Creat Clear Calc 50.5 Estimated GFR 47 POC Glucose 540 H* 397 H* (60-115) mg/dL Random Glucose 611 H* (60-115) mg/dL Calcium 8.9 D (8.4-10.2) mg/dL Independent Historian Clinical information obtained from an independent historian. History obtained from or confirmed by: EMS Chronic Conditions Patient?s care impacted by: Diabetes Social Determinants Patient?s care significantly limited by Social Determinants of Health including: Low income Discharge Plan Discharge Clinical Impression: Type 2 diabetes mellitus with hyperglycemia, with long-term current use of insulin Patient Disposition: Home, Self-Care Instructions: What is Insulin (ED), Type 2 Diabetes in the Older Adult (ED) Prescriptions: New insulin glargine [Lantus Solostar U-100 Insulin] 100 unit/mL (3 mL) insulin pen 25 unit subcut QAM Qty: 15 0RF insulin lispro [Admelog SoloStar U-100 Insulin] 100 unit/mL insulin pen 1 sliding scale dose subcut USEASDIRECTD Qty: 15 0RF No Action omega-3 fatty acids 500 mg capsule 500 mg PO DAILY Qty: 90 0RF ezetimibe 10 mg tablet 10 mg PO DAILY Qty: 90 1RF Invokana 300 mg tablet 300 mg PO QAM Qty: 90 1RF aspirin 81 mg tablet,delayed release (DR/EC) 81 mg PO DAILY Qty: 90 0RF duloxetine 30 mg capsule,delayed release(DR/EC) 30 mg PO DAILY Qty: 90 0RF cyclobenzaprine 10 mg tablet 10 mg PO DAILY PRN (Reason: muscle spasm) Qty: 30 1RF lisinopril 10 mg tablet 10 mg PO DAILY Qty: 90 1RF Januvia 100 mg tablet 100 mg PO DAILY Qty: 90 0RF insulin lispro 100 unit/mL insulin pen 5 - 10 unit subcut TID Qty: 15 2RF Rx Instructions: 5 units if BG <250, 10 units if Bg > 250 atorvastatin 80 mg tablet 80 mg PO BEDTIME Qty: 90 1RF omeprazole 20 mg capsule,delayed release(DR/EC) 20 mg PO BID@0630,1630 Qty: 180 3RF meloxicam 15 mg tablet 15 mg PO DAILY Qty: 30 2RF levetiracetam 1,000 mg tablet 2,000 mg PO BID 30 Days Qty: 120 0RF amitriptyline 10 mg tablet 40 mg PO DAILY Qty: 120 1RF (DME) FreeStyle Guerda 2 Sensor Kit See Rx Instructions .Route Qty: 1 3RF Rx Instructions: As directed (DME) FreeStyle Guerda 2 [place] Misc See Rx Instructions .Route Qty: 1 0RF Rx Instructions: As directed insulin glargine [Lantus Solostar U-100 Insulin] 100 unit/mL (3 mL) insulin pen 25 unit subcut BEDTIME insulin glargine [Lantus Solostar U-100 Insulin] 100 unit/mL (3 mL) insulin pen 45 unit subcut DAILY acetaminophen 325 mg Tablet 650 mg PO Q6H PRN (Reason: Pain) sucralfate 100 mg/mL Suspension 10 ml PO DAILY@1700 lidocaine 5 % Adhesive Patch,Medicated 1 patch TOPICAL DAILY Rx Instructions: leave on most painful area for up to 12 hrs docusate sodium 100 mg Capsule 100 mg PO BID PRN (Reason: Constipation) naproxen 500 mg Tablet 500 mg PO BID PRN (Reason: Pain) ibuprofen 600 mg tablet 600 mg PO Q6H PRN (Reason: fever or pain) Qty: 30 0RF acetaminophen [Tylenol 8 Hour] 650 mg tablet extended release 650 mg PO Q8H PRN (Reason: fever or pain) Qty: 30 0RF benzonatate 100 mg capsule 100 mg PO TID Qty: 20 0RF tramadol 50 mg tablet 50 mg PO Q6H PRN (Reason: pain) Qty: 20 0RF Referrals: [facility] [Primary Care Provider] - 3 days
[2023-06-06 14:11] LABS: MANUAL DIFF FLAG NO
[2023-06-06 14:14] LABS: Basophils Percent Auto 0.4 % (0-2); Eosinophils Absolute Auto 0.2 X10*3/uL (0.0-0.4); Eosinophils Percent Auto 2.9 % (0-4); Hematocrit 32.5 % (37.0-47.0); Hemoglobin 10.9 g/dl (12.0-16.0); Imm Gran Abs Auto 0.04 X10*3/uL (0.00-0.03); Imm Gran Pct Auto 0.6 % (0.0-0.4); Lymphocytes Absolute Auto 1.6 X10*3/uL (1.2-4.9); Lymphocytes Percent Auto 22.8 % (20-40); Mean Corpuscular HGB Conc 33.5 g/dl (31.0-35.0); Mean Corpuscular Hemoglobin 29.4 pg (27.0-33.0); Mean Corpuscular Volume 87.6 fL (80.0-98.0); Mean Platelet Volume 10.2 fL (9.4-12.3); Monocytes Absolute Auto 0.3 X10*3/uL (0.1-1.2); Monocytes Percent Auto 4.8 % (2-11); Neutrophils Absolute Auto 4.7 x10*3/uL (2.0-8.3); Neutrophils Percent Auto 68.5 % (45-73); Platelet Count 253 X10*3/uL (160-400); Red Blood Count 3.71 X10*6/uL (4.20-5.50); Red Cell Distribution Width 12.6 % (11.0-16.0); White Blood Count 6.8 X10*3/uL (4.8-10.8)
[2023-06-06 14:28] LABS: Anion Gap 11 (12-20); Blood Urea Nitrogen 23 mg/dL (9-16); Calcium 8.9 mg/dL (8.4-10.2); Carbon Dioxide 30 mmol/L (22-29); Chloride 101 mmol/L (96-108); Creatinine Clr Calc Pharmacy 50.5; Estimated Glomerular Filt Rate 47; Glucose Random 611 mg/dL (60-115); Potassium 4.8 mmol/L (3.3-5.1); Sodium 137 mmol/L (135-145)
[2023-06-06] MEDS: Insulin Regular, Human 100 UNIT/ML 3 ML VIAL 10 UNIT IVPUSH (14:33)
[2023-06-06] MEDS: Insulin Lispro 100 UNIT/ML 3 ML VIAL SUBCUT (14:33)
[2023-06-06] MEDS: 0.9 % Sodium Chloride 1,000 ML 500 ML IVCONT (14:35)
--- NOTE | 2023-06-06 14:36 | PC.NURSE ---
this rn medicated pt per sep.
--- NOTE | 2023-06-06 14:57 | PC.NURSE ---
repeat POC drawn by this rn, POC- 397.
[2023-06-06 14:58] LABS: Glucose, Whole Blood 397 mg/dL (60-115)
[2023-06-06] MEDS: Insulin Glargine,Hum.rec.anlog 100 UNIT/ML 10 ML VIAL 25 UNIT SUBCUT (16:00)
--- NOTE | 2023-06-06 16:27 | MHC.CM.ED ---
Received case management consult from Dr Mcdonald. Patient has been out of Insulin since . She tried to get more from the pharmacy but they said she wouldn't be able to pick it up before 06/16. Patient goes to [facility] on [address] T/W spoke with [facility]. She doesn't have a RX for Lantus. She has a prescription for Lispro, which was last filled on 05/02 for 50 days. Patient's sliding scale is 5-10 units SC three times a day before meals. Patient should have enough insulin until she can refill her prescription on 06/16. [facility] has no prescription on file for Lantus. Met with patient and generation engineer in regards to discharge planning. Patient states she hasnt' seen her PCP in a while . She has an appointment coming up. Patient states she frequently uses more than 10 units of Insulin 3 times a day and she hasn't told her PCP this. Dr Mcdonald has been made aware of this. He will order Lantus and Lispro. Unsure if insurance will authorize the Lispro. Continue to monitor for d/c needs.
== END 2023-06-06 17:01 | disposition home or self-care (01) ==
PROVIDERS: Emergency Provider Emergency Medicine
DX: E11.65 Type 2 diabetes mellitus with hyperglycemia (principal); I10 Essential (primary) hypertension; E78.5 Hyperlipidemia, unspecified; Z79.82 Long term (current) use of aspirin; Z79.02 Long term (current) use of antithrombotics/antiplatelets; Z79.4 Long term (current) use of insulin; Z79.899 Other long term (current) drug therapy
CPT/HCPCS: 36415; 80048; 82947; 85025; 96361; 96374; 99284

== ENCOUNTER 2023-06-14 07:33 | Outpatient (AMB) | payer OTHER, SELFPAY ==
--- NOTE | 2023-06-14 08:32 | MHC.PC.OV ---
Vital Signs 06/14/23 08:34 Height 5 ft 3 in Weight 161 lb 0.4 oz BMI 28.5 BP 144/82 H Blood Pressure Location Rt brachial Position Sitting Pulse 87 Pulse Source Pulse Oximeter Pulse Oximetry (%) 97 Oxygen Delivery Method Room Air Intake Visit Reasons: F/U DM, HLD, HTN Doctor Assistant Required: Yes Doctor Assistant Language: Gambian Allergies No Known Allergies Allergy (Verified 06/14/23 08:43) Medication List - Last Reconciled 06/14/23 by FLORIDALMA Bullard acetaminophen 650 mg PO Q6H PRN acetaminophen ER (Tylenol 8 Hour) 650 mg PO Q8H PRN amitriptyline 40 mg (4 x 10 mg) PO DAILY aspirin 81 mg PO DAILY atorvastatin 80 mg PO BEDTIME benzonatate 100 mg PO TID canagliflozin (Invokana) 300 mg PO QAM cyclobenzaprine 10 mg PO DAILY PRN docusate sodium 100 mg PO BID PRN duloxetine 30 mg PO DAILY ezetimibe 10 mg PO DAILY flash glucose scanning reader ([employer] Guerda 2 [place]) As directed flash glucose sensor ([employer] Guerda 2 Sensor kit) As directed ibuprofen 600 mg PO Q6H PRN insulin glargine (Lantus Solostar U-100 Insulin) 45 units (0.45 mL) subcut DAILY insulin glargine (Lantus Solostar U-100 Insulin) 25 units (0.25 mL) subcut BEDTIME insulin lispro (Admelog SoloStar U-100 Insulin lispro) 1 sliding scale dose subcut USEASDIRECTD insulin lispro 5 - 10 units (0.05 - 0.1 mL) subcut TID levetiracetam 2,000 mg (2 x 1,000 mg) PO BID 30 days lidocaine 5% 1 patch topical DAILY lisinopril 10 mg PO DAILY meloxicam 15 mg PO DAILY naproxen 500 mg PO BID PRN omega-3 fatty acids 500 mg PO DAILY omeprazole 20 mg PO BID@0630,1630 sitagliptin phosphate (Januvia) 100 mg PO DAILY sucralfate 10 mL PO DAILY@1700 tramadol 50 mg PO Q6H PRN Tobacco use date assessed: 06/14/23 HPI F/U DM, HLD, HTN HPI Details Patient is a 58-year-old female who presents today to follow-up on chronic conditions.? Medical history significant for GERD, chronic constipation, hyperlipidemia, hypertension, diabetes type 2 - has referral to see endocrinology-was not seen yet-will follow-up, depression, seizure disorder - followed by Neurology.? Patient denies shortness of breath or chest pain.? Reports had diabetic eye exam yesterday and will be having cataract surgery. Reports blood sugars running between 300s and 400s, reports she does not have her insulin lispro. Reports intermittent seasonal allergies when her voice becomes low - does not take anything for this. Patient is a Gambian-speaking and ROLDAN De La Rosa was helping with interpretation. ? [facility] Medical History Encounter to establish care Diabetic retinopathy Type 2 diabetes mellitus with hyperglycemia, with long-term current use of insulin Essential hypertension Hyperlipidemia LDL goal <100 Gastroparesis Hyperlipidemia Depression Asthma Epilepsy Diabetes Hypertension Surgical History Hx of colonoscopy (~06/2018) H/O esophagogastroduodenoscopy (03/14/18) History of ankle surgery H/O section Family History Mother Diabetes Father Diabetes Social History Household Members: Spouse, Children and Caregiver Housing: Apartment Do you presently have visiting nurse or other home services: Yes ([facility] Visiting nurse. [phone], can call in regrads to patients care.) Alcohol intake: never Patient Tobacco Use Status: Never used Tobacco service: No Current occupational status: unemployed Cognitive needs: No Hearing needs: No Vision needs: No Questionnaire Thrive Questionnaire Date Thrive assessed: 11/11/22 AUDIT C Alcohol Use Questionnaire (AUDIT-C) 1. How often do you have a drink containing alcohol?: Never 3. How often do you have six or more drinks on one occasion?: Never Total Score: 0 Score Reviewed/Action Taken: No IRWIN-7 AMB Questionnaire IRWIN-7 Date IRWIN - 7 assessed: 11/11/22 Source: Developed by Drs. Vasu Gentile, Harriet Garrido, Carlitos Goldstein and colleagues, with an educational shira from [employer]. Review of Systems Const Denies body aches, Denies chills, Denies fever(s) and Denies headache(s) Eyes Denies change in vision ENT Denies dizziness, Denies otalgia, Denies headache(s), Denies nasal discharge, Denies sinus pain and Denies sore throat Card Denies chest pain, Denies edema, Denies lightheadedness and Denies dyspnea Resp Denies cough and Denies dyspnea GI Denies constipation, Denies diarrhea, Denies nausea and Denies vomiting Denies dysuria Musc Denies myalgias Skin/Breast Denies lesions and Denies rash Neuro Denies dizziness and Denies headache(s) Physical exam (Primary Care) Vital Signs: Last Vital Signs Pulse 87 06/14/23 08:34 BP 144/82 H 06/14/23 08:34 Pulse Ox 97 06/14/23 08:34 Oxygen Delivery Method Room Air 06/14/23 08:34 BMI result Body Mass Index 28.5 Tobacco/Smoking Status: Tobacco use Status Tobacco use date assessed 06/14/23 06/14/23 08:41 Patient Tobacco Use Status Never used Tobacco 06/14/23 08:33 Thrive Assessment: Date of Thrive Assessment Date Thrive assessed 11/11/22 06/14/23 08:33 Const General: cooperative and no acute distress Orientation/consciousness: patient oriented x3 HENMT Head: Yes normocephalic and Yes atraumatic Throat: Yes posterior oropharynx normal Eyes General: appearance normal, both eyes and all related structures Neck Neck: Yes normal visual inspection, Yes full ROM and Yes no lymphadenopathy Resp Effort & Inspection: normal respiratory effort and able to speak in complete sentences Auscultation: clear to auscultation bilaterally, no crackles, no rales, no rhonchi and no wheezes Cardio Rate: regular rate Rhythm: regular rhythm Heart sounds: S1 normal heart sound present, S2 normal heart sound present and no murmurs GI Auscultation: normal bowel sounds Skin General skin exam: no rashes or lesions noted Neuro General: patient oriented x3 Gait exam (Neuro): Normal gait present Extrem General: Yes full ROM and No edema Results AMB Hemoglobin A1c AMB Hemoglobin A1c 12.6 % Last Edit by KRISTEN Tolbert on 06/14/23 08:44 Assessment and Plan Assessment & Plan (1) Seizure disorder: Code(s): G40.909 - Epilepsy, unspecified, not intractable, without status epilepticus Plan: Patient is on Keppra and followed by Neurology (2) Type 2 diabetes mellitus with hyperglycemia, with long-term current use of insulin: Code(s): E11.65 - Type 2 diabetes mellitus with hyperglycemia; Z79.4 - senior care (current) use of insulin Plan: A1c 12.6 today, goal less than 7 Will follow-up on endocrinology referral Low-carbohydrate diet Patient is to continue Januvia, insulin lispro TID, insulin Lantus BID, and Invokana - patient reports that she has not been taking her insulin lispro-refill sent (3) Essential hypertension: Code(s): I10 - Essential (primary) hypertension Plan: Goal BP equal or less than 140/90 Lisinopril 10 mg daily Low-sodium diet (4) Hyperlipidemia LDL goal <100: Code(s): E78.5 - Hyperlipidemia, unspecified Plan: LDL 159 03/2023 Continue atorvastatin 80 mg at bedtime and Zetia daily Low-cholesterol diet (5) Seasonal allergies: Code(s): J30.2 - Other seasonal allergic rhinitis Plan: Start Zyrtec daily 1 tablet p.r.n. Plan Follow-up in 3 months or sooner as needed Blood work before next appointment Orders: Orders Lipid Panel Today E78.5 - Hyperlipidemia, unspecified Comprehensive [place]. Panel Fast Today E11.65 - Type 2 diabetes mellitus with hyperglycemia, Z79.4 - terminal operations manager (current) use of insulin Hemoglobin A1c Today E11.65 - Type 2 diabetes mellitus with hyperglycemia, Z79.4 - senior care (current) use of insulin AMB Hemoglobin A1c Today E11.65 - Type 2 diabetes mellitus with hyperglycemia, Z79.4 - terminal operations manager (current) use of insulin Medications: New cetirizine (Zyrtec) 10 mg PO DAILY PRN 30 tabs 0RF allergy symptoms J30.2 - Other seasonal allergic rhinitis Refilled insulin lispro 5 units if BG <250, 10 units if Bg > 250 5 - 10 units (0.05 - 0.1 mL) subcut TID 15 mL 2RF E11.65 - Type 2 diabetes mellitus with hyperglycemia, Z79.4 - terminal operations manager (current) use of insulin Discontinued insulin lispro (Admelog SoloStar U-100 Insulin lispro) Discontinued Reason: Doctor's Order 1 sliding scale dose subcut USEASDIRECTD 15 mL 0RF Coding Level of Care Code Est Pt Level 4 (31197) Diagnoses Seizure disorder G40.909 Type 2 diabetes mellitus with hyperglycemia, with long-term current use of insulin E11.65; Z79.4 Essential hypertension I10 Hyperlipidemia LDL goal <100 E78.5 Seasonal allergies J30.2
[2023-06-14 08:34] VITALS: BP 144/82; PULSE 87; O2SAT 97; BMI 28.5
== END 2023-06-14 09:22 | disposition home or self-care (01) ==
PROVIDERS: PCP Nurse Practitioner Family; Visit Provider Nurse Practitioner Family
DX: G40.909 Epilepsy, unspecified, not intractable, without status epilepticus (principal); E11.65 Type 2 diabetes mellitus with hyperglycemia; Z79.4 Long term (current) use of insulin; I10 Essential (primary) hypertension; E78.5 Hyperlipidemia, unspecified; J30.2 Other seasonal allergic rhinitis
CPT/HCPCS: 83036; 99214

== ENCOUNTER 2023-06-28 13:52 | Outpatient (REF) | payer OTHER, SELFPAY ==
[2023-06-28 15:01] LABS: Estimated Average Glucose 266 mg/dL; Hemoglobin A1c % 10.9 % (<6.0)
[2023-06-28 15:16] LABS: Alanine Aminotransferase 13 U/L (0-31); Albumin Level 3.4 g/dL (3.5-5.0); Alkaline Phosphatase 114 U/L (39-117); Anion Gap 12 (12-20); Aspartate Amino Transferase 12 U/L (5-31); Bilirubin Total 0.4 mg/dL (0.0-1.0); Blood Urea Nitrogen 18 mg/dL (9-16); Calcium 8.8 mg/dL (8.4-10.2); Carbon Dioxide 26 mmol/L (22-29); Chloride 107 mmol/L (96-108); Cholesterol 198 mg/dL (<200); Estimated Glomerular Filt Rate > 60; Glucose Fasting 152 mg/dL (60-99); HDL Cholesterol 51 mg/dL (>40); LDL Cholesterol Calculated 112 mg/dL (<100); Potassium 3.7 mmol/L (3.3-5.1); Sodium 141 mmol/L (135-145); Total Protein 6.7 g/dL (6.5-8.0); Triglycerides 176 mg/dL (<150)
[2023-06-28 18:10] LABS: Creatinine Urine 89.39 mg/dL; Microalbum/Creatinine Ratio Ur 403.8 ug/mg cr (<30)
[2023-06-30 19:13] LABS: TS Negative Control Passed; TS Panel A 0; TS Panel B 0; TS Positive Control Passed; TSpotTB Negative (Negative)
== END 2023-06-28 13:53 | disposition home or self-care (01) ==
LOC: HO.LAB 13:52
PROVIDERS: PCP Nurse Practitioner Family; Visit Provider Nurse Practitioner Family
DX: E11.65 Type 2 diabetes mellitus with hyperglycemia (principal); E78.5 Hyperlipidemia, unspecified; Z11.1 Encounter for screening for respiratory tuberculosis; Z79.4 Long term (current) use of insulin
CPT/HCPCS: 36415; 80053; 80061; 82043; 82570; 83036; 86481

== ENCOUNTER 2023-07-13 14:35 | Outpatient (REF) | payer OTHER, SELFPAY | END 2023-07-13 14:36 | disposition home or self-care (01) | LOC: HO.US 14:35 | PROVIDERS: Visit Provider Emergency Medicine | DX: R60.0 Localized edema (principal) | CPT/HCPCS: 93971 ==

== ENCOUNTER 2023-08-07 00:26 | Inpatient (IN) | payer OTHER, SELFPAY ==
[2023-08-07] VITALS (9 sets, daily range): BP systolic 123–192; BP diastolic 60–105; PULSE 85–101; RESP 14–20; TEMP 36.6–37.1; O2SAT 92–96; BMI 32.4
--- NOTE | 2023-08-07 | CA_ITS ---
Acquisition Time: 2023-08-08 10:18:37 Total Exercise Time: 00:05:06 Test Indications: chest pain Medications: metformin insulin Protocol: LINWOOD Max HR: 125 BPM 76% of Pred: 163 BPM Max BP: 138/088 mmHG Max Work Load: 5.6 METS Exercise stress test exercise 5 min 6 sec of Linwood protocol stage 2 manual adjustment to 13% grade, achieving 74% MPHR and 5.6 METs, with request to stop due to fatgue at the 2 min alexsandra, with isolated PVCs, with resting 130/90, peak BP 138/88, without EKG changes at achieved workload. Test reviewed with Dr. Bhatia Referred By: Barber Huddleston Overread By: Morenita Kurtz
--- NOTE | ~2023-08-07 | XR_ITS ---
EXAMINATION: XR CHEST CLINICAL INFORMATION: Chest pain COMPARISON: 11/27/2022 TECHNIQUE: Frontal view of the chest was obtained. FINDINGS: Lung volumes are symmetric. In comparison to the prior examination there is increased prominence of the central vasculature and surrounding interstitium, suspicious for congestion and developing interstitial edema. No dense focal consolidation is seen. No evidence of pneumothorax or significant pleural effusion. Cardiac silhouette appears borderline enlarged for technique. Calcification is present at the aortic arch. No acute osseous findings are seen. XR/XR chest 1V IMPRESSION: Findings suspicious for vascular congestion and developing interstitial edema.
--- NOTE | ~2023-08-07 | NM_ITS ---
Lexiscan Myocardial perfusion study Indication: Congestive heart failure, assess for coronary disease and ischemia Technique: The patient was brought in for a Lexiscan perfusion study on 08/09/2023 and was injected 0.4 mg of Lexiscan intravenously. Within a minute of this injection 30 mCi of sestamibi was given intravenously. Images were obtained using the SPECT gamma camera interlaced with the gating device. Images were obtained in supine position. Resting perfusion study was performed on 08/08/2023. Patient was administered 30 mCi of sestamibi intravenously at rest. Images were then obtained in supine position. Images were processed with the software and compared side to side in short axis, horizontal long axis and vertical long axis views. Total DLP 160mGy-cm. Findings: Raw acquisition reviewed. Arms by the patient's side. The stress perfusion study showed diminished tracer uptake in the distal part of anteroseptal wall and inferolateral wall. With CT attenuation correction, the distal anteroseptal wall gets worse by the inferolateral wall seems to improve. Overall, suspect both of these to be artifactual. The gated study shows low normal LV systolic function with calculated LVEF of 53%. LV cavity is normal in size. The gated study shows normal wall thickening and contraction of segments. Resting study shows mildly reduced tracer uptake in the distal part of inferolateral wall. There is improvement with CT attenuation correction. Gating at rest reveals normal wall motion with ejection fraction at 57%. The findings are consistent with reversible distal anteroseptal defect with normal contractility, probably artifactual. Mixed defect in the distal inferolateral wall, again artifactual. NM/NM katherine perf SPECT rest & str Impression: 1. Myocardial perfusion imaging study shows no clear evidence of any ischemia or infarction. Probably normal perfusion. 2. Gated LVEF is 52% during stress and 57% during rest. 3. Transient ischemic dilatation not present. EKG component of the test reported separately.
--- NOTE | 2023-08-07 00:43 | ECG_ITS ---
Test Reason : CHEST PAIN Blood Pressure : / mmHG Vent. Rate : 087 BPM Atrial Rate : 087 BPM P-R Int : 174 ms QRS Dur : 088 ms QT Int : 354 ms P-R-T Axes : 022 009 052 degrees QTc Int : 425 ms Normal sinus rhythm Normal ECG When compared with ECG of 12-JAN-2023 10:14, No significant change was found Referred By: Josephine Quiroz Electronically Signed By:Barber Huddleston
[2023-08-07 01:03] LABS: Basophils Percent Auto 0.6 % (0-2); Eosinophils Absolute Auto 0.2 X10*3/uL (0.0-0.4); Eosinophils Percent Auto 3.3 % (0-4); Hematocrit 35.6 % (37.0-47.0); Hemoglobin 11.8 g/dl (12.0-16.0); Imm Gran Abs Auto 0.03 X10*3/uL (0.00-0.03); Imm Gran Pct Auto 0.4 % (0.0-0.4); Lymphocytes Absolute Auto 2.4 X10*3/uL (1.2-4.9); Lymphocytes Percent Auto 34.9 % (20-40); MANUAL DIFF FLAG NO; Mean Corpuscular HGB Conc 33.1 g/dl (31.0-35.0); Mean Corpuscular Volume 87.5 fL (80.0-98.0); Mean Platelet Volume 9.3 fL (9.4-12.3); Monocytes Absolute Auto 0.4 X10*3/uL (0.1-1.2); Monocytes Percent Auto 6.4 % (2-11); Neutrophils Absolute Auto 3.8 x10*3/uL (2.0-8.3); Neutrophils Percent Auto 54.4 % (45-73); Platelet Count 291 X10*3/uL (160-400); Red Blood Count 4.07 X10*6/uL (4.20-5.50); Red Cell Distribution Width 12.7 % (11.0-16.0); White Blood Count 6.9 X10*3/uL (4.8-10.8)
--- NOTE | 2023-08-07 01:07 | ED_ITS ---
HPI - Chest Pain General Chief Complaint: Chest Pain Stated Complaint: cp per ems Time Seen by Provider: 08/07/23 01:06 Source: patient Mode of arrival: EMS Limitations: language barrier (Tuvaluan speaking only, foreclosure specialist used) History of Present Illness HPI narrative: 58-year-old female history diabetes mellitus, GERD, seizures who presents emergency department for evaluation of intermittent chest pain. Patient states that she was resting when she developed chest pain. She points to her right chest when asked to localize the pain. Describes the pain is a tightness which is moderate intensity. She states the time my evaluation the pain is completely resolved. According to the nursing note the pain started at 23:00 hours tonight. Patient states that she did have associated nausea and shortness of breath. She denied lightheadedness, diaphoresis, radiation of the pain to her neck, jaw, arms or back. She states she has had similar pain in the past. Related Data Home Medications Medication Instructions Recorded Confirmed lidocaine 5 % topical patch 1 patch topical DAILY 08/11/22 06/14/23 naproxen 500 mg tablet 500 mg PO BID PRN Pain 08/11/22 06/14/23 sucralfate 100 mg/mL oral 10 ml PO DAILY@1700 08/11/22 06/14/23 suspension Previous Rx's Medication Instructions Recorded acetaminophen 650 mg 650 mg PO Q8H PRN fever or pain 03/22/23 tablet,extended release (Tylenol 8 #30 tabs Hour) aspirin 81 mg tablet,delayed 81 mg PO DAILY #90 tabs 03/22/23 release atorvastatin 80 mg tablet 80 mg PO BEDTIME #90 tabs 03/22/23 benzonatate 100 mg capsule 100 mg PO TID #20 caps 03/22/23 cyclobenzaprine 10 mg tablet 10 mg PO DAILY PRN muscle spasm 03/22/23 #30 tabs ibuprofen 600 mg tablet 600 mg PO Q6H PRN fever or pain 03/22/23 #30 tabs lisinopril 10 mg tablet 10 mg PO DAILY #90 tabs 03/22/23 sitagliptin phosphate 100 mg 100 mg PO DAILY #90 tabs 03/22/23 tablet (Januvia) omeprazole 20 mg capsule,delayed 20 mg PO BID@0630,1630 #180 caps 03/30/23 release flash glucose scanning reader #1 ea 06/05/23 (FreeStyle Guerda 2 [place]) flash glucose sensor (FreeStyle #1 ea 06/05/23 Guerda 2 Sensor kit) insulin glargine 100 unit/mL (3 25 unit (0.25 mL) subcut BEDTIME 06/09/23 mL) subcutaneous pen (Lantus #15 mL Solostar U-100 Insulin) insulin glargine 100 unit/mL (3 45 unit (0.45 mL) subcut DAILY #15 06/09/23 mL) subcutaneous pen (Lantus mL Solostar U-100 Insulin) meloxicam 15 mg tablet 15 mg PO DAILY #30 tabs 06/26/23 acetaminophen 325 mg tablet 650 mg (2 x 325 mg) PO Q6H PRN 07/06/23 Pain #90 tabs docusate sodium 100 mg capsule 100 mg PO BID PRN Constipation #60 07/06/23 caps cetirizine 10 mg tablet (Zyrtec) 10 mg PO DAILY PRN allergy 07/12/23 symptoms #90 tabs levetiracetam 1,000 mg tablet 2,000 mg (2 x 1,000 mg) PO BID 30 07/12/23 days #120 tabs duloxetine 30 mg capsule,delayed 30 mg PO DAILY #90 caps 07/20/23 release amitriptyline 10 mg tablet 40 mg (4 x 10 mg) PO DAILY #120 07/25/23 tabs canagliflozin 300 mg tablet 300 mg PO QAM #90 tabs 08/01/23 (Invokana) ezetimibe 10 mg tablet 10 mg PO DAILY #90 tabs 08/01/23 insulin lispro 100 unit/mL 5 - 10 unit (0.05 - 0.1 mL) subcut 08/04/23 subcutaneous pen TID #15 mL Allergies Allergy/AdvReac Type Severity Reaction Status Date / Time No Known Allergies Allergy Verified 06/14/23 08:43 Review of Systems 2 Review of Systems: Yes all other systems are reviewed and are negative PMFSH Past Medical History Medical History Encounter to establish care Diabetic retinopathy Type 2 diabetes mellitus with hyperglycemia, with long-term current use of insulin Essential hypertension Hyperlipidemia LDL goal <100 Gastroparesis Hyperlipidemia Depression Asthma Epilepsy Diabetes Hypertension Surgical History Hx of colonoscopy (~06/2018) H/O esophagogastroduodenoscopy (03/14/18) History of ankle surgery H/O section Family History Family History Mother Diabetes Father Diabetes Social History Social History Household Members: Spouse, Children and Caregiver Housing: Apartment Do you presently have visiting nurse or other home services: Yes ([facility]osal[facility] Visiting nurse. [phone], can call in regrads to patients care.) Alcohol intake: never Patient Tobacco Use Status: Never used Tobacco Advance Directives: No Advance Directives Information Provided: No service: No Current occupational status: unemployed Cognitive needs: No Hearing needs: No Vision needs: No Physical Exam 2 Vital Signs: Vital Signs: Last Vital Signs Temp 98.1 F 08/07/23 00:35 Pulse 88 08/07/23 00:35 Resp 18 08/07/23 00:35 BP 179/105 H 08/07/23 00:35 Pulse Ox 96 08/07/23 00:35 O2 Del Method Room Air 08/07/23 00:35 BMI result Body Mass Index 32.4 Vital signs revealed an elevated blood pressure of 179/105 otherwise unremarkable Exam: General: Awake, alert in no distress Head: Normocephalic, atraumatic EENT: PERRL, Lids normal, sclera normal, conjunctiva normal, nose normal , ears normal, throat without erythema or exudates Neck: Supple, no adenopathy, no trachea midline or C-spine tenderness Lung: breath sounds symmetric, no wheezing, rales or rhonchi Chest: symmetric movement, moderate right chest wall tenderness Heart: regular rate and rhythm, normal S1, S2 no murmurs or rubs Abdomen: soft, non-tender, nondistended, normal bowel sounds Back: no vertebral tenderness, no CVAT Extremities: no deformities, moves all extremities symmetrically Neuro: Awake, alert, oriented, normal speech, cranial nerves intact, moves all extremities symmetrically Psych: Pleasant, cooperative Medications Administered Discontinued Medications Generic Name Dose Route Start Last Admin Trade Name Freq PRN Reason Stop Dose Admin Furosemide 40 mg 08/07/23 02:25 08/07/23 02:53 Furosemide 40 Mg/4 Ml Vial IVPUSH 08/07/23 02:26 40 mg ONCE ONE Administration Protocol Medical Decision Making Medical Decision Making [facility] Narrative: 58-year-old female history diabetes mellitus, GERD, seizures who presents emergency department for evaluation of intermittent right-sided chest pain since 23:30 hours, associated with nausea and shortness of breath, pain was resolved at the time my evaluation. Patient states she has had similar pain in the past. Patient did receive aspirin 324 mg orally right paramedics. Vital signs did reveal an elevated blood pressure 179/105 otherwise unremarkable. Physical examination did reveal right-sided anterior chest wall tenderness. Differential diagnosis includes was not limited to myocardial infarction, myocardial ischemia, costochondritis, chest wall pain, pneumonia, pulmonary edema, anemia, electrolyte abnormalities Following evaluation was ordered: CBC, CMP, troponin, magnesium, BNP, COVID-19, influenza, chest x-ray one view, 12 EKG, urinalysis 02:23 My independent interpretation patient's laboratory evaluation as follows: Anemia with an H&H of 11.8 and 35.6. Elevated BUN 22 with a normal creatinine 0.86. Elevated glucose 327. BNP elevated 309. High sensitive troponin I was detectable but not elevated at 10.7. Twelve EKG was unremarkable. Chest x-ray is concerning for pulmonary edema. The patient was treated with Lasix 40 mg IV, the patient was given aspirin 324 to chew by inclusion paraeducator. I will get a repeat troponin at 03:55 hours. 04:14 Patient's 3 hour troponin was flat at 9.2. I did discuss admission with the covering hospitalist over tiger text. Admission/Observation Consideration of admission/observation: Escalation of care including admission/observation considered Lab Data 08/07/23 00:55 08/07/23 00:55 Labs: Lab Results 08/07/23 08/07/23 08/07/23 Range/Units 00:55 01:42 02:04 WBC 6.9 (4.8-10.8) X10*3/uL RBC 4.07 L (4.20-5.50) X10*6/uL Hgb 11.8 L (12.0-16.0) g/dl Hct 35.6 L (37.0-47.0) % MCV 87.5 (80.0-98.0) fL MCH 29.0 (27.0-33.0) pg MCHC 33.1 (31.0-35.0) g/dl RDW 12.7 (11.0-16.0) % Plt Count 291 (160-400) X10*3/uL MPV 9.3 L (9.4-12.3) fL Immature Gran % (Auto) 0.4 (0.0-0.4) % Neut % (Auto) 54.4 (45-73) % Lymph % (Auto) 34.9 (20-40) % [place] % (Auto) 6.4 (2-11) % Eos % (Auto) 3.3 (0-4) % Baso % (Auto) 0.6 (0-2) % Lymph # (Auto) 2.4 (1.2-4.9) X10*3/uL [place] # (Auto) 0.4 (0.1-1.2) X10*3/uL Eos # (Auto) 0.2 (0.0-0.4) X10*3/uL Baso # (Auto) 0.0 (0.0-0.2) X10*3/uL Abs Immat Gran (auto) 0.03 (0.00-0.03) X10*3/uL Absolute Neuts (auto) 3.8 (2.0-8.3) x10*3/uL Absolute Nucleated RBC 0.000 (0.0-0.012) X10*3/uL Nucleated RBC % (auto) 0.0 (0.0-0.2) /100WBC Sodium 139 (135-145) mmol/L Potassium 4.2 (3.3-5.1) mmol/L Chloride 102 (96-108) mmol/L Carbon Dioxide 27 (22-29) mmol/L Anion Gap 14 (12-20) BUN 22 H (9-16) mg/dL Creatinine 0.86 (0.5-1.4) mg/dL Estim Creat Clear Calc 73.6 Estimated GFR > 60 Random Glucose 327 H (60-115) mg/dL Calcium 9.4 D (8.4-10.2) mg/dL Magnesium 2.0 (1.6-2.6) mg/dL Total Bilirubin 0.6 (0.0-1.0) mg/dL AST 13 (5-31) U/L ALT 16 (0-31) U/L Alkaline Phosphatase 119 H (39-117) U/L Troponin I High Sens 10.7 D (<3.5-17.0) ng/L B-Natriuretic Peptide 309 H (<100) pg/mL Total Protein 6.8 (6.5-8.0) g/dL Albumin 3.3 L (3.5-5.0) g/dL Urine Color Yellow Urine Appearance Cloudy Urine pH 6.0 (5.0-9.0) Ur Specific [place] 1.020 (1.005-1.025) Urine Protein 100 (2+) H (Neg-Trace) mg/dL Urine Glucose (UA) >=1000 H (Negative) mg/dL Urine Ketones Negative (Negative) mg/dL Urine Blood Trace H (Negative) Urine Nitrite Negative (Negative) Ur Leukocyte Esterase Small (1+) H (Negative) Urine RBC 0-2 (0-2) /HPF Urine WBC 21-50 H (0-5) /HPF Ur Squamous Epith Cells 6-10 (0-2) /HPF Urine Bacteria Trace (None Seen) Hyaline Casts 0-2 (0-2) /LPF COVID-19 (DARRON) Negative (Negative) COVID-19 Clin Com See Note Influenza Type A (JASE) Negative (Negative) Influenza Type B (JASE) Negative (Negative) Influenza A & B Note See Note 08/07/23 Range/Units 03:04 WBC (4.8-10.8) X10*3/uL RBC (4.20-5.50) X10*6/uL Hgb (12.0-16.0) g/dl Hct (37.0-47.0) % MCV (80.0-98.0) fL MCH (27.0-33.0) pg MCHC (31.0-35.0) g/dl RDW (11.0-16.0) % Plt Count (160-400) X10*3/uL MPV (9.4-12.3) fL Immature Gran % (Auto) (0.0-0.4) % Neut % (Auto) (45-73) % Lymph % (Auto) (20-40) % [place] % (Auto) (2-11) % Eos % (Auto) (0-4) % Baso % (Auto) (0-2) % Lymph # (Auto) (1.2-4.9) X10*3/uL [place] # (Auto) (0.1-1.2) X10*3/uL Eos # (Auto) (0.0-0.4) X10*3/uL Baso # (Auto) (0.0-0.2) X10*3/uL Abs Immat Gran (auto) (0.00-0.03) X10*3/uL Absolute Neuts (auto) (2.0-8.3) x10*3/uL Absolute Nucleated RBC (0.0-0.012) X10*3/uL Nucleated RBC % (auto) (0.0-0.2) /100WBC Sodium (135-145) mmol/L Potassium (3.3-5.1) mmol/L Chloride (96-108) mmol/L Carbon Dioxide (22-29) mmol/L Anion Gap (12-20) BUN (9-16) mg/dL Creatinine (0.5-1.4) mg/dL Estim Creat Clear Calc Estimated GFR Random Glucose (60-115) mg/dL Calcium (8.4-10.2) mg/dL Magnesium (1.6-2.6) mg/dL Total Bilirubin (0.0-1.0) mg/dL AST (5-31) U/L ALT (0-31) U/L Alkaline Phosphatase (39-117) U/L Troponin I High Sens 9.2 (<3.5-17.0) ng/L B-Natriuretic Peptide (<100) pg/mL Total Protein (6.5-8.0) g/dL Albumin (3.5-5.0) g/dL Urine Color Urine Appearance Urine pH (5.0-9.0) Ur Specific [place] (1.005-1.025) Urine Protein (Neg-Trace) mg/dL Urine Glucose (UA) (Negative) mg/dL Urine Ketones (Negative) mg/dL Urine Blood (Negative) Urine Nitrite (Negative) Ur Leukocyte Esterase (Negative) Urine RBC (0-2) /HPF Urine WBC (0-5) /HPF Ur Squamous Epith Cells (0-2) /HPF Urine Bacteria (None Seen) Hyaline Casts (0-2) /LPF COVID-19 (DARRON) (Negative) COVID-19 Clin Com Influenza Type A (JASE) (Negative) Influenza Type B (JASE) (Negative) Influenza A & B Note Independent Interpretation I performed an independent interpretation of an: EKG Interpretation: My independent interpretation patient's 12 EKG done at 00:43 hours is as follows: Normal sinus rhythm rate of 87, normal [place] interval, QRS duration QTC interval, no ST segment elevation, no ST segment depression, no significant T- wave abnormalities, no PACs, no PVCs-this is a normal EKG. My independent interpretation patient's chest x-ray: Increased interstitial markings consistent with pulmonary edema Radiology Impression Discussion of test interpretation with radiology: I have reviewed the radiologist's reading. Radiologist Impression: XR chest 1V IMPRESSION: Findings suspicious for vascular congestion and developing interstitial edema. Dictated By: Jaime Montalvo MD Critical Care Time Critical Care Time Critical Care Time: Yes Total Critical Care Time: 45 Attestation: Critical Care: The patient was critically ill with a high probability of imminent or life threatening deterioration. I spent greater than 30 minutes of discontinuous time evaluating the patient,delivering critical care at the bedside, discussing and evaluating pertinent data with consultants. Critical care time does not include time spent performing separately billable procedures or teaching. Total time spent performing critical care was 45 minutes. Discharge Plan Discharge Clinical Impression: Chest pain Pulmonary edema Qualifiers: Chronicity: acute Qualified Code(s): J81.0 - Acute pulmonary edema Patient Disposition: Admitted As Inpatient Prescriptions: No Action aspirin 81 mg tablet,delayed release (DR/EC) 81 mg PO DAILY Qty: 90 0RF cyclobenzaprine 10 mg tablet 10 mg PO DAILY PRN (Reason: muscle spasm) Qty: 30 1RF lisinopril 10 mg tablet 10 mg PO DAILY Qty: 90 1RF Januvia 100 mg tablet 100 mg PO DAILY Qty: 90 0RF atorvastatin 80 mg tablet 80 mg PO BEDTIME Qty: 90 1RF omeprazole 20 mg capsule,delayed release(DR/EC) 20 mg PO BID@0630,1630 Qty: 180 3RF (DME) Uranium EnergyStyle Guedra 2 Sensor Kit See Rx Instructions .Route Qty: 1 3RF Rx Instructions: As directed (DME) FreeStyle Guerda 2 [place] Misc See Rx Instructions .Route Qty: 1 0RF Rx Instructions: As directed insulin glargine [Lantus Solostar U-100 Insulin] 100 unit/mL (3 mL) insulin pen 45 unit subcut DAILY Qty: 15 1RF insulin glargine [Lantus Solostar U-100 Insulin] 100 unit/mL (3 mL) insulin pen 25 unit subcut BEDTIME Qty: 15 1RF meloxicam 15 mg tablet 15 mg PO DAILY Qty: 30 2RF docusate sodium 100 mg capsule 100 mg PO BID PRN (Reason: Constipation) Qty: 60 3RF acetaminophen 325 mg tablet 650 mg PO Q6H PRN (Reason: Pain) Qty: 90 0RF levetiracetam 1,000 mg tablet 2,000 mg PO BID 30 Days Qty: 120 0RF cetirizine [Zyrtec] 10 mg tablet 10 mg PO DAILY PRN (Reason: allergy symptoms) Qty: 90 0RF duloxetine 30 mg capsule,delayed release(DR/EC) 30 mg PO DAILY Qty: 90 0RF amitriptyline 10 mg tablet 40 mg PO DAILY Qty: 120 0RF ezetimibe 10 mg tablet 10 mg PO DAILY Qty: 90 1RF Invokana 300 mg tablet 300 mg PO QAM Qty: 90 1RF insulin lispro 100 unit/mL insulin pen 5 - 10 unit subcut TID Qty: 15 2RF Rx Instructions: 5 units if BG <250, 10 units if Bg > 250 sucralfate 100 mg/mL Suspension 10 ml PO DAILY@1700 lidocaine 5 % Adhesive Patch,Medicated 1 patch TOPICAL DAILY Rx Instructions: leave on most painful area for up to 12 hrs naproxen 500 mg Tablet 500 mg PO BID PRN (Reason: Pain) ibuprofen 600 mg tablet 600 mg PO Q6H PRN (Reason: fever or pain) Qty: 30 0RF acetaminophen [Tylenol 8 Hour] 650 mg tablet extended release 650 mg PO Q8H PRN (Reason: fever or pain) Qty: 30 0RF benzonatate 100 mg capsule 100 mg PO TID Qty: 20 0RF
[2023-08-07 01:17] LABS: Alanine Aminotransferase 16 U/L (0-31); Albumin Level 3.3 g/dL (3.5-5.0); Alkaline Phosphatase 119 U/L (39-117); Anion Gap 14 (12-20); Aspartate Amino Transferase 13 U/L (5-31); Bilirubin Total 0.6 mg/dL (0.0-1.0); Blood Urea Nitrogen 22 mg/dL (9-16); Calcium 9.4 mg/dL (8.4-10.2); Carbon Dioxide 27 mmol/L (22-29); Chloride 102 mmol/L (96-108); Creatinine Clr Calc Pharmacy 73.6; Estimated Glomerular Filt Rate > 60; Glucose Random 327 mg/dL (60-115); Potassium 4.2 mmol/L (3.3-5.1); Sodium 139 mmol/L (135-145); Total Protein 6.8 g/dL (6.5-8.0)
[2023-08-07 01:23] LABS: B Type Natriuretic Peptide 309 pg/mL (<100)
[2023-08-07 01:24] LABS: Troponin-I High Sensitivity 10.7 ng/L (<3.5-17.0)
[2023-08-07 02:10] LABS: Appearance Urine Cloudy; Color Urine Yellow; Glucose Urine UA >=1000 mg/dL (Negative); Leukocyte Esterase Urine Small (1+) (Negative); Nitrite Urine Negative (Negative); UMIC TRIGGER UACC YES; Urine Blood Trace (Negative); Urine Ketones Negative (Negative); Urine Protein 100 (2+) mg/dL (Neg-Trace)
[2023-08-07 02:14] LABS: COVID-19 Test Negative (Negative); IDNOW Serial# 08D9AD1C; IDNOW Serial# 152EDE1D; Influenza A Negative (Negative); Influenza B2 Negative (Negative)
[2023-08-07 02:15] LABS: Bacteria Urine Trace (None Seen); Hyaline Casts Urine 0-2 /LPF (0-2); RBC Urine 0-2 /HPF (0-2); UACC Culture Trigger YES; WBC Urine 21-50 /HPF (0-5)
[2023-08-07] MEDS: Furosemide 40 MG/4 ML VIAL IVPUSH (02:53)
[2023-08-07 03:30] LABS: Troponin-I High Sensitivity 9.2 ng/L (<3.5-17.0)
--- NOTE | 2023-08-07 05:11 | PM.IMHP ---
History of Present Illness Date of Service: 08/07/23 Attending physician on admission: Mary Guzman Chief Complaint: Chest pain. Eilzabeth Greenwood is a 58 years old woman with past medical history significant for type 2 diabetes on insulin, hypertension, seizure disorder and hyperlipidemia presents to the emergency department complaining of sharp right-sided chest pain that started yesterday in the morning after she woke up associated with shortness of breath on exertion and generalized fatigue. The pain does not radiate with a worsening or relieving factors. Upon arrival to the hospital her shape pain improved. She also reported occasional dry cough and mild headache. She denies any gastrointestinal symptoms such as abdominal pain, nausea, vomiting or diarrhea. She denied any fever or chills. She denies history of congestive heart failure. In the ED, she was found to have stable vital signs. Her blood pressure was initially 179/105. The most recent one is 144/82. Blood workup including CBC and CMP are basically unremarkable. BNP is elevated, 309. Troponin is negative x2. CXR is suspicious for vascular congestion and developing interstitial edema. EKG showed no acute ischemic changes. ED tx: Lasix 40 IV, aspirin 324 mg p.o. Patient is currently free of chest pain. Review of Systems Review of Systems: All 12 systems were reviewed and normal except as noted in HPI. [facility] Medical History Encounter to establish care Diabetic retinopathy Type 2 diabetes mellitus with hyperglycemia, with long-term current use of insulin Essential hypertension Hyperlipidemia LDL goal <100 Gastroparesis Hyperlipidemia Depression Asthma Epilepsy Diabetes Hypertension Family History Mother Diabetes Father Diabetes Surgical History Hx of colonoscopy (~06/2018) H/O esophagogastroduodenoscopy (03/14/18) History of ankle surgery H/O section Social History Household Members: Spouse, Children and Caregiver Housing: Apartment Do you presently have visiting nurse or other home services: Yes (Rosalio Moreno nurse. [phone], can call in regrads to patients care.) Alcohol intake: never Patient Tobacco Use Status: Never used Tobacco Advance Directives: No Advance Directives Information Provided: No service: No Current occupational status: unemployed Cognitive needs: No Hearing needs: No Vision needs: No Meds Allergies Allergy/AdvReac Type Severity Reaction Status Date / Time No Known Allergies Allergy Verified 06/14/23 08:43 Active Medications: Current Medications Amitriptyline HCl (Amitriptyline Hcl 10 Mg Tablet) 10 mg PO BEDTIME [facility] Aspirin (Aspirin Enteric Coated 81 Mg Tablet.) 81 mg PO DAILY [facility] Atorvastatin Calcium (Atorvastatin Calcium 80 Mg Tablet) 80 mg PO BEDTIME [facility] Dextrose (Dextrose 50 % 25 Gm/50 Ml Syringe) 25 gm IVPUSH Q15M PRN; Protocol PRN Reason: per Hypoglycemia Standing Ord. Duloxetine HCl (Duloxetine Hcl 30 Mg Capsule.) 30 mg PO ONCE ONE Stop: 08/07/23 09:01 Ezetimibe (Ezetimibe 10 Mg Tablet) 10 mg PO ONCE ONE Stop: 08/07/23 09:01 Glucose (Glucose Gel 15 Gm Gel..Gram.) 15 gm PO Q15M PRN; Protocol PRN Reason: per Hypoglycemia Standing Ord. Insulin Glargine (Insulin Glargine,Hum.Rec.Anlog 100 Unit/Ml 10 Ml Vial) 45 unit SUBCUT ONCE ONE Stop: 08/07/23 09:01 Insulin Human Lispro (Insulin Lispro 100 Unit/Ml 3 Ml Vial) [facility]; Protocol Levetiracetam (Levetiracetam 1,000 Mg Tablet) 1,000 mg PO Q12H [facility] Sitagliptin Phosphate (Sitagliptin Phosphate 100 Mg Tablet) 100 mg PO ONCE ONE Stop: 08/07/23 09:01 Sodium Chloride (0.9 % Sodium Chloride Flush 3 Ml Syringe) 3 ml IVFLUSH QSHIFT [facility] Home Medications Medication Instructions Recorded Confirmed Last Taken Type lidocaine 5 % topical patch 1 patch topical DAILY 08/11/22 06/14/23 Unknown History naproxen 500 mg tablet 500 mg PO BID PRN Pain 08/11/22 06/14/23 Unknown History sucralfate 100 mg/mL oral 10 ml PO DAILY@1700 08/11/22 06/14/23 Unknown History suspension Physical Exam Vital Signs and Narrative: Vital Signs: Last Vital Signs Temp 98.1 F 08/07/23 00:35 Pulse 88 01/28/24 00:35 Resp 18 08/07/23 00:35 BP 179/105 H 08/07/23 00:35 Pulse Ox 96 08/07/23 00:35 O2 Del Method Room Air 08/07/23 00:35 BMI result Body Mass Index 32.4 Constitutional - Awake and Alert, No apparent distress. Cooperative. Afebrile. HEENT - atraumatic, normocephalic PERRL, EOMI Heart - regular rate and rhythm. No murmur Lungs - Normal lung expansion, Normal respiratory effort, No respiratory distress, tachypnea. Decreased breath sounds at the bases. Gastrointestinal - NT / ND; +BS; No rebound or guarding Extremities - no calf tenderness bilaterally, no swelling Musculoskeletal - Normal inspection, normal ROM Skin - Warm/Dry Neurological - Alert & oriented x3. Psychological - Appropriate affect Results Labs 08/07/23 00:55 08/07/23 05:45 Labs: Laboratory Results - last 24 hr 08/07/23 08/07/23 08/07/23 00:55 01:42 02:04 MCV 87.5 MCH 29.0 MCHC 33.1 RDW 12.7 Plt Count 291 MPV 9.3 L Immature Gran % (Auto) 0.4 Neut % (Auto) 54.4 Lymph % (Auto) 34.9 [place] % (Auto) 6.4 Eos % (Auto) 3.3 Baso % (Auto) 0.6 Lymph # (Auto) 2.4 [place] # (Auto) 0.4 Eos # (Auto) 0.2 Baso # (Auto) 0.0 Abs Immat Gran (auto) 0.03 Absolute Neuts (auto) 3.8 Absolute Nucleated RBC 0.000 Nucleated RBC % (auto) 0.0 Anion Gap 14 Estim Creat Clear Calc 73.6 Estimated GFR > 60 Random Glucose 327 H Calcium 9.4 D Magnesium 2.0 Total Bilirubin 0.6 AST 13 ALT 16 Alkaline Phosphatase 119 H B-Natriuretic Peptide 309 H Total Protein 6.8 Albumin 3.3 L Urine Color Yellow Urine Appearance Cloudy Urine pH 6.0 Ur Specific [place] 1.020 Urine Protein 100 (2+) H Urine Glucose (UA) >=1000 H Urine Ketones Negative Urine Blood Trace H Urine Nitrite Negative Ur Leukocyte Esterase Small (1+) H Urine RBC 0-2 Urine WBC 21-50 H Ur Squamous Epith Cells 6-10 Urine Bacteria Trace Hyaline Casts 0-2 COVID-19 (DARRON) Negative COVID-19 Clin Com See Note Influenza Type A (JASE) Negative Influenza Type B (JASE) Negative Influenza A & B Note See Note Imaging Radiologist's Impressions: Impressions Chest X-Ray 08/07/23 01:03 IMPRESSION: Findings suspicious for vascular congestion and developing interstitial edema. Assessment and Plan (1) Pulmonary edema: Qualifiers: Chronicity: acute Qualified Code(s): J81.0 - Acute pulmonary edema Status: Acute (2) Chest pain: Status: Acute Plan Elizabeth Greenwood is a 58 years old woman presents with: Right-sided chest pain associated with dyspnea on exertion likely secondary to acute congestive heart failure. Keep in observation under hospitalist service. Telemetry. Pulse oximetry. Continue treatment with Lasix IV daily. Continue aspirin. Check echocardiogram. Recheck troponin. Cardiology consult for further recommendations. Type 2 diabetes mellitus. Blood glucose checks before meals and bedtime. Diabetic diet. Continue Lantus, sitagliptin and insulin sliding scale. Essential hypertension. Continue lisinopril. Seizure disorder. Continue Keppra. Hyperlipidemia. Continue atorvastatin and ezetimibe. Depression. Continue Cymbalta and amitriptyline. DVT prophylaxis: Heparin subcut Code status: Full Quality Stroke Does the patient have a stroke diagnosis?: No VTE Prior VTE?: No VTE Risk Level:: Medical - moderate - high VTE Device Contraindication: Treatment Not Indicated VTE Drug Contraindication: N/A - Med Ordered
[2023-08-07] MEDS: levETIRAcetam 1,000 MG TABLET 1000 MG PO ×2 (06:23→14:15)
[2023-08-07 06:25] LABS: Anion Gap 16 (12-20); Blood Urea Nitrogen 20 mg/dL (9-16); Calcium 9.3 mg/dL (8.4-10.2); Carbon Dioxide 23 mmol/L (22-29); Chloride 104 mmol/L (96-108); Creatinine Clr Calc Pharmacy 80.2; Estimated Glomerular Filt Rate > 60; Glucose Random 246 mg/dL (60-115); Potassium 3.9 mmol/L (3.3-5.1); Sodium 139 mmol/L (135-145)
--- NOTE | 2023-08-07 07:27 | PC.NURSE ---
Resumed care of patient, she is currently resting, awaiting bed placement at this time. Denies any complaints. All safety measures in place.
[2023-08-07 08:05] LABS: Glucose, Whole Blood 251 mg/dL (60-115)
[2023-08-07] MEDS: 0.9 % Sodium Chloride Flush 3 ML SYRINGE IVFLUSH ×3 (08:13→21:47)
[2023-08-07] MEDS: lisinopriL 10 MG TABLET PO (08:13)
[2023-08-07] MEDS: Insulin Glargine,Hum.rec.anlog 100 UNIT/ML 10 ML VIAL 45 UNIT SUBCUT (08:13)
[2023-08-07] MEDS: Ezetimibe 10 MG TABLET PO (08:13)
[2023-08-07] MEDS: DULoxetine HCl 30 MG CAPSULE.DR PO (08:13)
[2023-08-07] MEDS: Insulin Lispro 100 UNIT/ML 3 ML VIAL SUBCUT ×3 (08:14→21:46)
[2023-08-07] MEDS: Aspirin Enteric Coated 81 MG TABLET.DR PO (08:14)
[2023-08-07 09:04] LABS: Hematocrit 34.9 % (37.0-47.0); Hemoglobin 11.6 g/dl (12.0-16.0); Mean Corpuscular HGB Conc 33.2 g/dl (31.0-35.0); Mean Corpuscular Hemoglobin 28.9 pg (27.0-33.0); Mean Platelet Volume 9.4 fL (9.4-12.3); Platelet Count 278 X10*3/uL (160-400); Red Blood Count 4.01 X10*6/uL (4.20-5.50); Red Cell Distribution Width 12.4 % (11.0-16.0); White Blood Count 7.1 X10*3/uL (4.8-10.8)
--- NOTE | 2023-08-07 09:18 | PHA.MEDREC ---
Pharmacy Consult ? Medication Reconciliation Pharmacy has completed the medication reconciliation. Utilized cellar supervisor services. Spoke to pt to confirm meds.
[2023-08-07 09:42] LABS: Troponin-I High Sensitivity 7.9 ng/L (<3.5-17.0)
[2023-08-07 11:08] LABS: Glucose, Whole Blood 219 mg/dL (60-115)
[2023-08-07] MEDS: SITagliptin Phosphate 100 MG TABLET PO (12:00)
--- NOTE | 2023-08-07 12:18 | PM.CNCAR ---
History of Present Illness History of Present Illness Date of Service: 08/07/23 Requesting physician: Mary Guzman Chief complaint: Chest Pain Narrative: 58-year-old female presenting with shortness of breath and chest discomfort. She is background history of epilepsy, hypertension, hyperlipidemia and diabetes. She has been experiencing some right-sided pressure-like feeling off and on over the last week. She also has been experiencing some shortness of breath. She has known history of asthma but is saying that asthma control is stable. With these symptoms she presented to the emergency department and was noted to have vascular congestion on the chest x-ray. Blood pressure was also significantly elevated. High sensitivity troponin levels are normal. EKGs not showing any dynamic changes. She is being diuresed with IV diuretics at this point. Blood pressure is better controlled now. [facility] Past Medical History Medical History Encounter to establish care Diabetic retinopathy Type 2 diabetes mellitus with hyperglycemia, with long-term current use of insulin Essential hypertension Hyperlipidemia LDL goal <100 Gastroparesis Hyperlipidemia Depression Asthma Epilepsy Diabetes Hypertension Family History Family History Mother Diabetes Father Diabetes Surgical History Surgical History Hx of colonoscopy (~06/2018) H/O esophagogastroduodenoscopy (03/14/18) History of ankle surgery H/O section Social History Social History Household Members: Spouse, Children and Caregiver Housing: Apartment Do you presently have visiting nurse or other home services: Yes ([facility] Visiting nurse. [phone], can call in regrads to patients care.) Alcohol intake: never Patient Tobacco Use Status: Never used Tobacco service: No Current occupational status: unemployed Cognitive needs: No Hearing needs: No Vision needs: No Meds Allergies Allergy/AdvReac Type Severity Reaction Status Date / Time No Known Allergies Allergy Verified 06/14/23 08:43 Active Medications: Current Medications Amitriptyline HCl (Amitriptyline Hcl 10 Mg Tablet) 10 mg PO BEDTIME [facility] Aspirin (Aspirin Enteric Coated 81 Mg Tablet.) 81 mg PO DAILY [facility] Last Admin: 08/07/23 08:14 Dose: 81 mg Atorvastatin Calcium (Atorvastatin Calcium 80 Mg Tablet) 80 mg PO BEDTIME [facility] Dextrose (Dextrose 50 % 25 Gm/50 Ml Syringe) 25 gm IVPUSH Q15M PRN; Protocol PRN Reason: per Hypoglycemia Standing Ord. Duloxetine HCl (Duloxetine Hcl 30 Mg Capsule.) 30 mg PO DAILY [facility] Ezetimibe (Ezetimibe 10 Mg Tablet) 10 mg PO DAILY [facility] Furosemide (Furosemide 20 Mg/2 Ml Vial) 20 mg IVPUSH DAILY [facility]; Protocol Glucose (Glucose Gel 15 Gm Gel..Gram.) 15 gm PO Q15M PRN; Protocol PRN Reason: per Hypoglycemia Standing Ord. Insulin Human Lispro (Insulin Lispro 100 Unit/Ml 3 Ml Vial) 0 unit SUBCUT QIDACHS [facility]; Protocol Last Admin: 08/07/23 12:00 Dose: 4 unit Levetiracetam (Levetiracetam 1,000 Mg Tablet) 2,000 mg PO BID [facility] Levetiracetam (Levetiracetam 1,000 Mg Tablet) 1,000 mg PO ONCE ONE Stop: 08/07/23 12:12 Lisinopril (Lisinopril 10 Mg Tablet) 10 mg PO DAILY [facility]; Protocol Non-Formulary Medication (Lidocaine) 1 patch TOPICAL DAILY [facility] Omeprazole (Omeprazole 20 Mg Capsule.) 20 mg PO BID@0630,1630 [facility] Sodium Chloride (0.9 % Sodium Chloride Flush 3 Ml Syringe) [facility] Last Admin: 08/07/23 08:13 Dose: 3 ml Home Medications Medication Instructions Recorded Confirmed Last Taken Type lidocaine 5 % topical patch 1 patch topical DAILY 08/11/22 08/07/23 08/06/23 History canagliflozin 300 mg tablet 300 mg PO DAILY 08/07/23 08/07/23 08/06/23 History (Invokana) insulin glargine 100 unit/mL (3 48 unit subcut BEDTIME 08/07/23 08/07/23 08/05/23 History mL) subcutaneous pen (Lantus Solostar U-100 Insulin) insulin lispro 100 unit/mL 1 sliding scale dose subcut TIDAC 08/07/23 08/07/23 08/06/23 History subcutaneous pen ketorolac 0.5 % eye drops 1 drp ophthalmic (eye) TID PRN 08/07/23 08/07/23 Unknown History Allergy Symptoms meloxicam 15 mg tablet 15 mg PO DAILY PRN Pain 08/07/23 08/07/23 Unknown History Physical Exam Vital Signs: Vital Signs: Last Vital Signs Temp 97.9 F 08/07/23 11:21 Pulse 95 08/07/23 11:21 Resp 18 08/07/23 11:21 BP 123/64 08/07/23 11:21 Pulse Ox 92 08/07/23 11:21 O2 Del Method Room Air 08/07/23 11:21 BMI result Body Mass Index 32.4 GENERAL APPEARANCE: in no acute distress, pleasant. NECK: no carotid bruit, no jugular venous distention. SKIN: no suspicious lesions, warm and dry. HEART: no murmurs, regular rate and rhythm. LUNGS: clear to auscultation bilaterally. ABDOMEN: soft, nontender. EXTREMITIES: no edema. PERIPHERAL PULSES: equal. NEUROLOGIC: No gross deficits, AAO X 3 Objective Labs and Meds 08/07/23 08:58 08/07/23 05:45 Lab results: Laboratory Results - last 24 hr 08/07/23 08/07/23 08/07/23 00:55 01:42 02:04 WBC 6.9 RBC 4.07 L Hgb 11.8 L Hct 35.6 L MCV 87.5 MCH 29.0 MCHC 33.1 RDW 12.7 Plt Count 291 MPV 9.3 L Immature Gran % (Auto) 0.4 Neut % (Auto) 54.4 Lymph % (Auto) 34.9 [place] % (Auto) 6.4 Eos % (Auto) 3.3 Baso % (Auto) 0.6 Lymph # (Auto) 2.4 [place] # (Auto) 0.4 Eos # (Auto) 0.2 Baso # (Auto) 0.0 Abs Immat Gran (auto) 0.03 Absolute Neuts (auto) 3.8 Absolute Nucleated RBC 0.000 Nucleated RBC % (auto) 0.0 Sodium 139 Potassium 4.2 Chloride 102 Carbon Dioxide 27 Anion Gap 14 BUN 22 H Creatinine 0.86 Estim Creat Clear Calc 73.6 Estimated GFR > 60 POC Glucose Random Glucose 327 H Calcium 9.4 D Magnesium 2.0 Total Bilirubin 0.6 AST 13 ALT 16 Alkaline Phosphatase 119 H Troponin I High Sens 10.7 D B-Natriuretic Peptide 309 H Total Protein 6.8 Albumin 3.3 L Urine Color Yellow Urine Appearance Cloudy Urine pH 6.0 Ur Specific [place] 1.020 Urine Protein 100 (2+) H Urine Glucose (UA) >=1000 H Urine Ketones Negative Urine Blood Trace H Urine Nitrite Negative Ur Leukocyte Esterase Small (1+) H Urine RBC 0-2 Urine WBC 21-50 H Ur Squamous Epith Cells 6-10 Urine Bacteria Trace Hyaline Casts 0-2 COVID-19 ([facility]ARRON) Negative COVID-19 Clin Com See Note Influenza Type A (JASE) Negative Influenza Type B (JASE) Negative Influenza A & B Note See Note 08/07/23 08/07/23 08/07/23 03:04 05:45 08:01 WBC RBC Hgb Hct MCV MCH MCHC RDW Plt Count MPV Immature Gran % (Auto) Neut % (Auto) Lymph % (Auto) [place] % (Auto) Eos % (Auto) Baso % (Auto) Lymph # (Auto) [place] # (Auto) Eos # (Auto) Baso # (Auto) Abs Immat Gran (auto) Absolute Neuts (auto) Absolute Nucleated RBC Nucleated RBC % (auto) Sodium 139 Potassium 3.9 Chloride 104 Carbon Dioxide 23 Anion Gap 16 BUN 20 H Creatinine 0.79 Estim Creat Clear Calc 80.2 Estimated GFR > 60 POC Glucose 251 H Random Glucose 246 H Calcium 9.3 Magnesium Total Bilirubin AST ALT Alkaline Phosphatase Troponin I High Sens 9.2 B-Natriuretic Peptide Total Protein Albumin Urine Color Urine Appearance Urine pH Ur Specific [place] Urine Protein Urine Glucose (UA) Urine Ketones Urine Blood Urine Nitrite Ur Leukocyte Esterase Urine RBC Urine WBC Ur Squamous Epith Cells Urine Bacteria Hyaline Casts COVID-19 ([facility]ON) COVID-19 Clin Com Influenza Type A (JASE) Influenza Type B (JASE) Influenza A & B Note 08/07/23 08/07/23 08:58 11:04 WBC 7.1 RBC 4.01 L Hgb 11.6 L Hct 34.9 L MCV 87.0 MCH 28.9 MCHC 33.2 RDW 12.4 Plt Count 278 MPV 9.4 Immature Gran % (Auto) Neut % (Auto) Lymph % (Auto) [place] % (Auto) Eos % (Auto) Baso % (Auto) Lymph # (Auto) [place] # (Auto) Eos # (Auto) Baso # (Auto) Abs Immat Gran (auto) Absolute Neuts (auto) Absolute Nucleated RBC 0.000 Nucleated RBC % (auto) 0.0 Sodium Potassium Chloride Carbon Dioxide Anion Gap BUN Creatinine Estim Creat Clear Calc Estimated GFR POC Glucose 219 H Random Glucose Calcium Magnesium Total Bilirubin AST ALT Alkaline Phosphatase Troponin I High Sens 7.9 B-Natriuretic Peptide Total Protein Albumin Urine Color Urine Appearance Urine pH Ur Specific [place] Urine Protein Urine Glucose (UA) Urine Ketones Urine Blood Urine Nitrite Ur Leukocyte Esterase Urine RBC Urine WBC Ur Squamous Epith Cells Urine Bacteria Hyaline Casts COVID-19 ([facility]) COVID-19 Clin Com Influenza Type A (JASE) Influenza Type B (JASE) Influenza A & B Note Imaging Radiologist's impression: Impressions Chest X-Ray 08/07/23 01:03 IMPRESSION: Findings suspicious for vascular congestion and developing interstitial edema. Assessment and Plan (1) Chest pain: Status: Acute (2) Acute congestive heart failure: Status: Acute Plan [age] year female presenting with chest discomfort and shortness of breath. Clinically she was in congestive heart failure due to significantly elevated blood pressures. She was diuresed and appears to be euvolemic at this stage. Blood pressure also appears to be good with her home dose of lisinopril. Can be changed to oral diuretics at this point. Would favor just giving her 20 mg p.o. Lasix. Check echocardiogram tomorrow. We will also arrange an exercise stress test for her. Thank you for allowing me to participate in the care of your patient. Please feel free to contact me if you have any questions. Procedures Date of Service Date of Service: 08/07/23
--- NOTE | 2023-08-07 12:45 | HO.PM.IMPN ---
Subjective Subjective Date of Service: 08/07/23 Interval History: seen and examined this morning follow up for chest pain/sob history obtained with the assistance of a palliative care specialist currently symptoms resolved Review of Systems Review of Systems: Yes all other systems are reviewed and are negative Constitutional Constitutional: Denies chills and Denies fever(s) Cardiovascular Cardiovascular: Denies chest pain, Denies palpitations and Denies dyspnea Respiratory Respiratory: Denies cough and Denies dyspnea Endocrine Endocrine: Denies palpitations Physical Exam Vital Signs: Vital Signs: Last Vital Signs Temp 97.9 F 08/07/23 11:21 Pulse 95 08/07/23 11:21 Resp 18 08/07/23 11:21 BP 123/64 08/07/23 11:21 Pulse Ox 92 08/07/23 11:21 O2 Del Method Room Air 08/07/23 11:21 BMI result Body Mass Index 32.4 Const: General: cooperative, comfortable, no acute distress, alert and awake Nutritional Appearance: average body habitus Orientation/consciousness: patient oriented x3 Resp: Effort & Inspection: normal respiratory effort, able to speak in complete sentences, no respiratory distress and no use of accessory muscles Auscultation: clear to auscultation bilaterally Cardio: Rate: regular rate GI: Inspection: No distended Palpation (GI): Soft to palpation Skin: Other: warm/dry Neuro: General: patient oriented x3, moves all extremities and CN's II-XI intact bilaterally Extrem: General: Yes no pedal edema Objective Data Active Medications Amitriptyline HCl (Amitriptyline Hcl 10 Mg Tablet) 10 mg PO BEDTIME [facility] Aspirin (Aspirin Enteric Coated 81 Mg Tablet.) 81 mg PO DAILY [facility] Last Admin: 08/07/23 08:14 Dose: 81 mg Documented By: COTY Atorvastatin Calcium (Atorvastatin Calcium 80 Mg Tablet) 80 mg PO BEDTIME [facility] Dextrose (Dextrose 50 % 25 Gm/50 Ml Syringe) 25 gm IVPUSH Q15M PRN; Protocol PRN Reason: per Hypoglycemia Standing Ord. Duloxetine HCl (Duloxetine Hcl 30 Mg Capsule.) 30 mg PO DAILY [facility] Ezetimibe (Ezetimibe 10 Mg Tablet) 10 mg PO DAILY [facility] Furosemide (Furosemide 20 Mg/2 Ml Vial) 20 mg IVPUSH DAILY [facility]; Protocol Glucose (Glucose Gel 15 Gm Gel..Gram.) 15 gm PO Q15M PRN; Protocol PRN Reason: per Hypoglycemia Standing Ord. Insulin Human Lispro (Insulin Lispro 100 Unit/Ml 3 Ml Vial) 0 unit SUBCUT QIDACHS [facility]; Protocol Last Admin: 08/07/23 12:00 Dose: 4 unit Documented By: BLANKA Levetiracetam (Levetiracetam 1,000 Mg Tablet) 2,000 mg PO BID [facility] Lidocaine (Lidocaine 4 % Patch Adh..Patch) 1 patch TRANSDERMA DAILY [facility] Lisinopril (Lisinopril 10 Mg Tablet) 10 mg PO DAILY [facility]; Protocol Omeprazole (Omeprazole 20 Mg Capsule.Dr) 20 mg PO BID@0630,1630 [facility] Sodium Chloride (0.9 % Sodium Chloride Flush 3 Ml Syringe) 3 ml IVFLUSH QSHIFT [facility] Last Admin: 08/07/23 08:13 Dose: 3 ml Documented By: COTY Labs 08/07/23 08:58 08/07/23 05:45 Labs: Laboratory Results - last 24 hr 08/07/23 08/07/23 08/07/23 00:55 01:42 02:04 MCV 87.5 MCH 29.0 MCHC 33.1 RDW 12.7 Plt Count 291 MPV 9.3 L Immature Gran % (Auto) 0.4 Neut % (Auto) 54.4 Lymph % (Auto) 34.9 [place] % (Auto) 6.4 Eos % (Auto) 3.3 Baso % (Auto) 0.6 Lymph # (Auto) 2.4 [place] # (Auto) 0.4 Eos # (Auto) 0.2 Baso # (Auto) 0.0 Abs Immat Gran (auto) 0.03 Absolute Neuts (auto) 3.8 Absolute Nucleated RBC 0.000 Nucleated RBC % (auto) 0.0 Anion Gap 14 Estim Creat Clear Calc 73.6 Estimated GFR > 60 POC Glucose Random Glucose 327 H Calcium 9.4 D Magnesium 2.0 Total Bilirubin 0.6 AST 13 ALT 16 Alkaline Phosphatase 119 H B-Natriuretic Peptide 309 H Total Protein 6.8 Albumin 3.3 L Urine Color Yellow Urine Appearance Cloudy Urine pH 6.0 Ur Specific [place] 1.020 Urine Protein 100 (2+) H Urine Glucose (UA) >=1000 H Urine Ketones Negative Urine Blood Trace H Urine Nitrite Negative Ur Leukocyte Esterase Small (1+) H Urine RBC 0-2 Urine WBC 21-50 H Ur Squamous Epith Cells 6-10 Urine Bacteria Trace Hyaline Casts 0-2 COVID-19 ([facility]) Negative COVID-19 Clin Com See Note Influenza Type A (JASE) Negative Influenza Type B (JASE) Negative Influenza A & B Note See Note 08/07/23 08/07/23 08/07/23 05:45 08:01 08:58 MCV 87.0 MCH 28.9 MCHC 33.2 RDW 12.4 Plt Count 278 MPV 9.4 Immature Gran % (Auto) Neut % (Auto) Lymph % (Auto) [place] % (Auto) Eos % (Auto) Baso % (Auto) Lymph # (Auto) [place] # (Auto) Eos # (Auto) Baso # (Auto) Abs Immat Gran (auto) Absolute Neuts (auto) Absolute Nucleated RBC 0.000 Nucleated RBC % (auto) 0.0 Anion Gap 16 Estim Creat Clear Calc 80.2 Estimated GFR > 60 POC Glucose 251 H Random Glucose 246 H Calcium 9.3 Magnesium Total Bilirubin AST ALT Alkaline Phosphatase B-Natriuretic Peptide Total Protein Albumin Urine Color Urine Appearance Urine pH Ur Specific [place] Urine Protein Urine Glucose (UA) Urine Ketones Urine Blood Urine Nitrite Ur Leukocyte Esterase Urine RBC Urine WBC Ur Squamous Epith Cells Urine Bacteria Hyaline Casts COVID-19 ([facility]) COVID-19 Clin Com Influenza Type A (JASE) Influenza Type B (JASE) Influenza A & B Note 08/07/23 11:04 MCV MCH MCHC RDW Plt Count MPV Immature Gran % (Auto) Neut % (Auto) Lymph % (Auto) [place] % (Auto) Eos % (Auto) Baso % (Auto) Lymph # (Auto) [place] # (Auto) Eos # (Auto) Baso # (Auto) Abs Immat Gran (auto) Absolute Neuts (auto) Absolute Nucleated RBC Nucleated RBC % (auto) Anion Gap Estim Creat Clear Calc Estimated GFR POC Glucose 219 H Random Glucose Calcium Magnesium Total Bilirubin AST ALT Alkaline Phosphatase B-Natriuretic Peptide Total Protein Albumin Urine Color Urine Appearance Urine pH Ur Specific [place] Urine Protein Urine Glucose (UA) Urine Ketones Urine Blood Urine Nitrite Ur Leukocyte Esterase Urine RBC Urine WBC Ur Squamous Epith Cells Urine Bacteria Hyaline Casts COVID-19 ([facility]) COVID-19 Clin Com Influenza Type A (JASE) Influenza Type B (JASE) Influenza A & B Note Assessment and Plan (1) Chest pain: Status: Acute Plan This is a 58 years old female who presented with sob and chest pain admitted for CHF due to elevated blood pressure acute CHF, unspecified s/p IVF, will transition to po lasix in am echo in am chest pain trops flat seen by cardiology plan for echo and exercise stress test in am - keep npo continue aspirin, statin pyuria no urinary symptoms urine culture pending Type 2 diabetes mellitus Continue Lantus, and insulin sliding scale. sitagliptin on hold Essential hypertension. Continue lisinopril. Seizure disorder. Continue Keppra. Hyperlipidemia. Continue atorvastatin and ezetimibe. Depression. Continue Cymbalta and amitriptyline. DVT prophylaxis: Heparin subcut Code status: Full Quality Stroke Does the patient have a stroke diagnosis?: No VTE Prior VTE?: No VTE Risk Level:: Medical - moderate - high VTE Device Contraindication: Treatment Not Indicated VTE Drug Contraindication: N/A - Med Ordered
[2023-08-07 16:36] LABS: Glucose, Whole Blood 134 mg/dL (60-115)
[2023-08-07] MEDS: Omeprazole 20 MG CAPSULE.DR PO (17:17)
[2023-08-07 20:38] LABS: Glucose, Whole Blood 192 mg/dL (60-115)
[2023-08-07] MEDS: levETIRAcetam 1,000 MG TABLET 2000 MG PO (21:46)
[2023-08-07] MEDS: Atorvastatin Calcium 80 MG TABLET PO (21:46)
[2023-08-07] MEDS: Amitriptyline HCl 10 MG TABLET PO (21:46)
--- NOTE | 2023-08-08 | CA_ITS ---
Acquisition Time: 2023-08-09 10:24:27 Total Exercise Time: 00:02:00 Test Indications: Chest Pain Medications: SEE EMAR Protocol: LEXISCAN Max HR: 110 BPM 67% of Pred: 163 BPM Max BP: 134/078 mmHG Max Work Load: 1.0 METS Pharmacological stress test with Lexiscan injection whille sitting and kicking her legs, without anginal symptoms, with isolated PVCs, with normotensive response to injection, with nondiagnoisitic EKGs. Aminophylline 75mg IVP given to reverse Lexiscan, Nuclear images pending. Test reviewed with Dr. Bhatia Referred By: Morenita Kurtz Overread By: Morenita Kurtz
[2023-08-08 04:00] VITALS: BP 134/69; PULSE 98; RESP 18; TEMP 36.4; O2SAT 93
[2023-08-08] MEDS: Omeprazole 20 MG CAPSULE.DR PO ×2 (06:39→16:47)
--- NOTE | 2023-08-08 07:00 | CA_ITS ---
Transthoracic Echocardiogram Patient (Last, First, Middle): Elizabeth Light, Gender: Female Date of : 1965 Age: 58 Procedure Date: 08/08/2023 Procedure Type: Transthoracic Echocardiogram Location: [facility] Height: 160.02 cm Weight: 83.01 kg BSA: 1.86 m2 Heart Rate: bpm BP: 123 / 70 mmHg [employer] Employee: [employer] Referring MD: Mary Guzman MD Athletic Gear Custodian: Jarrod Bhatia MD Symptoms: Chest pain, pulm edema Study Quality: Good ECG Rhythm: Sinus Conclusions: - 1. Mildly reduced LV ejection fraction at 45-50% with mild LVH and impaired relaxation filling pattern 2. Cardiac valvular Dopplers within normal limits 3. Normal measured RV systolic pressure Findings Left Ventricle Normal left ventricular cavity size. There is mildly increased left ventricular wall thickness. The left ventricular systolic function is mildly decreased. The visually estimated ejection fraction is between 45-50%. Spectral Doppler is indicative of an impaired relaxation filling pattern. Right Ventricle Normal right ventricular cavity size. There is normal right ventricular systolic function. Atria Both atria are normal in size. There is no evidence of interatrial shunt. Aortic Valve Normal aortic valve structure and function. There is no aortic valve stenosis. There is no aortic valve regurgitation. Mitral Valve There is mild anterior and posterior mitral leaflet thickening. There is trace mitral valve regurgitation. There is no mitral valve stenosis. Pulmonic Valve The pulmonic valve is likely normal. There is trace to mild pulmonic valve regurgitation. Tricuspid Valve Normal tricuspid valve structure. There is trace tricuspid valve regurgitation. The right ventricular systolic pressure is normal. The right ventricular systolic pressure is 21 mmHg. Normal right atrial pressure. There is no evidence of pulmonary hypertension. Great Vessels All visible segments of the aorta are normal in size. The pulmonary artery was not well visualized. Venous The inferior vena cava is normal in size and collapses greater than 50% with inspiration. Pericardium/Pleural There is no evidence of pericardial effusion. Prior Study Comparison Changes noted compared to prior study dated: 11/23/2017. reduced LV systolic function. delay in reporting due to technical issues Measurements 2D Linear Measurements IVSd: 1.27 0.6-0.9/0.6-1.0 cm LVIDd: 4.47 3.9-5.3/4.2-5.9 cm LVIDd Index: 2.40 2.4-3.2/2.2-3.1 cm/m2 LVIDs: 3.29 2.0-3.6 cm LVPWd: 1.30 0.7-1.1 cm LA Diam: 3.50 2.7-3.8/3.0-4.0 cm LAIDs Index: 1.88 1.5-2.3 cm/m2 LV Mass: 200.44 67-162/88-224 g LV Mass Index: 107.76 43-95/49-115 g/m2 LVOT Diam: 2.10 3.0+(-)1.3 cm 2D Systolic Function EF 4C: 56.70 >55% EF 2C: 45.40 >55% EF BiP: 50.60 >55% Mitral Valve MV Pk E: 0.77 MV PK A: 0.99 MV Decel Time: 179.00 E/A: 0.80 E'Lateral: 2.61 E/E' Lat: 29.40 PHT: 52.00 MVA PHT: 4.23 Decel [place]: 4.29 Aortic Valve AoV Pk Joo: 1.22 AoV Mn Joo: 0.86 AoV VTI: 0.25 AoV Pk Grad: 6.00 Aov Mn Grad: 4.00 MELCHOR Cont.VTI: 2.50 LVOT LVOT Pk Joo: 0.80 LVOT Mn Joo: 0.58 LVOT VTI: 0.18 LVOT Pk Grad: 3.00 LVOT Mn Grad: 1.00 LVOT Diam: 2.10 LVOT Area: 3.46 Diastolic Function MV Pk E: 0.77 MV Pk A: 0.99 E/A: 0.80 E' Laterial: 2.61 E/E' Lat: 29.40 Right Ventricle TAPSE (mm): 23.00 TVS' Joo: 13.00 Tricuspid Valve TR Pk Joo: 2.14 TR Pk Grad: 18.00 RA Press: 3.00 RVSP: 21.00 Great Vessels Aorta Sinus of Valsalva: 3.30 2.0-3.5 cm Ao Asc: 3.20 2.1-3.4 cm Ao Arch: 2.60 Pulmonary Veins Pulm Vein S/D 1.00 Pulmonary Valve PV Pk Joo: 0.76 Peak PV Grad: 2.00 Updated in Other Vendor System with Status of Final Jarrod Bhatia MD electronically signed on 08/10/2023 2:55:43 PM with status of Final
[2023-08-08 07:11] VITALS: BP 123/70; PULSE 89; RESP 18; TEMP 37.2; O2SAT 93
[2023-08-08 07:38] LABS: Glucose, Whole Blood 171 mg/dL (60-115)
[2023-08-08] MEDS: DULoxetine HCl 30 MG CAPSULE.DR PO (08:13)
[2023-08-08] MEDS: levETIRAcetam 1,000 MG TABLET 2000 MG PO ×2 (08:13→21:06)
[2023-08-08] MEDS: Ezetimibe 10 MG TABLET PO (08:13)
[2023-08-08] MEDS: Furosemide 20 MG TABLET PO (08:14)
[2023-08-08] MEDS: lisinopriL 10 MG TABLET PO (08:14)
[2023-08-08] MEDS: Aspirin Enteric Coated 81 MG TABLET.DR PO (08:14)
[2023-08-08] MEDS: Insulin Lispro 100 UNIT/ML 3 ML VIAL SUBCUT ×3 (08:14→21:06)
[2023-08-08] MEDS: Lidocaine 4 % Patch ADH..PATCH 1 PATCH TRANSDERMA (08:14)
--- NOTE | 2023-08-08 10:46 | MHC.CM.PN ---
This CM attempted to meet with pt (with noc analyst) who was off of the unit for testing. CM will reattempt when pt returns to the floor. Per EMR review and MD rounds, pt may D/C later today if ECHO and stress test negative.
[2023-08-08 11:08] VITALS: BP 130/72; PULSE 93; RESP 18; TEMP 36; O2SAT 92
[2023-08-08 11:57] LABS: Glucose, Whole Blood 90 mg/dL (60-115)
--- NOTE | 2023-08-08 12:42 | PM.PNCARD ---
Subjective Subjective Date of Service: 08/08/23 Principal diagnosis: No shortness of breath no chest pain. Interval history: Underwent ETT which was nondiagnostic due to low exercise capacity. Echocardiogram is pending. Patient denies any chest pain or shortness of breath at current time. Resting comfortably. Review of Systems Review of Systems Yes all other systems are reviewed and are negative Physical Exam Vital Signs: Last Vital Signs Temp 96.8 F 08/08/23 11:08 Pulse 93 08/08/23 11:08 Resp 18 08/08/23 11:08 BP 130/72 08/08/23 11:08 Pulse Ox 92 08/08/23 11:08 O2 Del Method Room Air 08/08/23 11:08 BMI result Body Mass Index 32.4 GENERAL APPEARANCE: in no acute distress, pleasant. NECK: no carotid bruit, no jugular venous distention. SKIN: no suspicious lesions, warm and dry. HEART: no murmurs, regular rate and rhythm. LUNGS: clear to auscultation bilaterally. ABDOMEN: soft, nontender. EXTREMITIES: no edema. PERIPHERAL PULSES: equal. NEUROLOGIC: No gross deficits, AAO X 3 Objective Labs and Meds 08/07/23 08:58 08/07/23 05:45 Lab results: Laboratory Results - last 24 hr 08/07/23 08/07/23 08/08/23 16:28 20:31 07:32 POC Glucose 134 H 192 H 171 H 08/08/23 11:32 POC Glucose 90 Progress Note: A&P Assessment and plan (1) Acute congestive heart failure: Status: Acute Assessment and Plan: Acute congestive heart failure in this middle-aged woman with multiple risk factors. Obstructive coronary artery disease absolutely needs to be ruled out. Underwent ETT which is suboptimal. Will schedule for vasodilating myocardial perfusion imaging with resting perfusion study to be done today. Will review the echocardiogram. Continue current therapy including p.o. Lasix as clinically she appears to be euvolemic. Will continue to follow with you Time Spent With Patient Time: Total time managing care of this patient today ____ minutes. Progress Note: Quality Stroke Does the patient have a stroke diagnosis?: No Procedures Date of Service Date of Service: 08/08/23
--- NOTE | 2023-08-08 14:41 | MHC.CM.PN ---
Pt SSO, lives at home with her daughter. Pt is self-care, uses a cane, and a walker. Pts daughter will transport her home. Pt states she has a HCP, copy requested. PCP: Erica REYES
--- NOTE | 2023-08-08 15:18 | HO.PM.IMPN ---
Subjective Subjective Date of Service: 08/08/23 Interval History: seen and examined this morning follow up for chest pain/sob currently symptoms resolved Review of Systems Review of Systems: Yes all other systems are reviewed and are negative Constitutional Constitutional: Denies chills and Denies fever(s) Cardiovascular Cardiovascular: Denies chest pain, Denies palpitations and Denies dyspnea Respiratory Respiratory: Denies cough and Denies dyspnea Endocrine Endocrine: Denies palpitations Physical Exam Vital Signs: Vital Signs: Last Vital Signs Temp 96.8 F 08/08/23 11:08 Pulse 93 08/08/23 11:08 Resp 18 08/08/23 11:08 BP 130/72 08/08/23 11:08 Pulse Ox 92 08/08/23 11:08 O2 Del Method Room Air 08/08/23 11:08 BMI result Body Mass Index 32.4 Appearing in no acute distress lung sounds are clear to auscultation heart regular rate rhythm, clear S1, S2 positive bowel sounds, abdomen is soft, nontender neuro patient is alert x3, no focal deficits Objective Data Active Medications Amitriptyline HCl (Amitriptyline Hcl 10 Mg Tablet) 10 mg PO BEDTIME [facility] Last Admin: 08/07/23 21:46 Dose: 10 mg Documented By: CADENCE Aspirin (Aspirin Enteric Coated 81 Mg Tablet.) 81 mg PO DAILY [facility] Last Admin: 08/08/23 08:14 Dose: 81 mg Documented By: LIZBETH Atorvastatin Calcium (Atorvastatin Calcium 80 Mg Tablet) 80 mg PO BEDTIME [facility] Last Admin: 08/07/23 21:46 Dose: 80 mg Documented By: CADENCE Dextrose (Dextrose 50 % 25 Gm/50 Ml Syringe) 25 gm IVPUSH Q15M PRN; Protocol PRN Reason: per Hypoglycemia Standing Ord. Duloxetine HCl (Duloxetine Hcl 30 Mg Capsule.) 30 mg PO DAILY [facility] Last Admin: 08/08/23 08:13 Dose: 30 mg Documented By: LIZBETH Ezetimibe (Ezetimibe 10 Mg Tablet) 10 mg PO DAILY [facility] Last Admin: 08/08/23 08:13 Dose: 10 mg Documented By: LIZBETH Furosemide (Furosemide 20 Mg Tablet) 20 mg PO DAILY [facility]; Protocol Last Admin: 08/08/23 08:14 Dose: 20 mg Documented By: LIZBETH Glucose (Glucose Gel 15 Gm Gel..Gram.) 15 gm PO Q15M PRN; Protocol PRN Reason: per Hypoglycemia Standing Ord. Insulin Glargine (Insulin Glargine,Hum.Rec.Anlog 100 Unit/Ml 10 Ml Vial) 48 unit SUBCUT BEDTIME [facility] Insulin Human Lispro (Insulin Lispro 100 Unit/Ml 3 Ml Vial) 0 unit SUBCUT QIDACHS [facility]; Protocol Last Admin: 08/08/23 11:36 Dose: Not Given Documented By: LIZBETH Non-Admin Reason: See Note Levetiracetam (Levetiracetam 1,000 Mg Tablet) 2,000 mg PO BID [facility] Last Admin: 08/08/23 08:13 Dose: 2,000 mg Documented By: LIZBETH Lidocaine (Lidocaine 4 % Patch Adh..Patch) 1 patch TRANSDERMA DAILY [facility] Last Admin: 08/08/23 08:14 Dose: 1 patch Documented By: LIZBETH Lisinopril (Lisinopril 10 Mg Tablet) 10 mg PO DAILY [facility]; Protocol Last Admin: 08/08/23 08:14 Dose: 10 mg Documented By: LIZBETH Omeprazole (Omeprazole 20 Mg Capsule.Dr) 20 mg PO BID@0630,1630 [facility] Last Admin: 08/08/23 06:39 Dose: 20 mg Documented By: CADENCE Sodium Chloride (0.9 % Sodium Chloride Flush 3 Ml Syringe) 3 ml IVFLUSH QSHIFT [facility] Last Admin: 08/08/23 13:14 Dose: Not Given Documented By: LIZBETH Non-Admin Reason: See Note Labs 08/07/23 08:58 08/07/23 05:45 Labs: Laboratory Results - last 24 hr 08/07/23 08/07/23 08/08/23 16:28 20:31 07:32 POC Glucose 134 H 192 H 171 H 08/08/23 11:32 POC Glucose 90 Microbiology Microbiology Results: Microbiology 08/07/23 Unknown Urine Culture - Final Urine clean catch - Urine rodas top Assessment and Plan (1) Chest pain: Status: Acute Plan 58 years old female who presented with sob and chest pain admitted for CHF due to elevated blood pressure Acute CHF, unspecified, euvolemic po lasix as per cardiology echo taken ETT suboptimal but no acute EKG changes plan for nuc stress Chest pain trops flat seen by cardiology continue aspirin, statin echo and Nuc results pending Pyuria no urinary symptoms urine culture mixed Type 2 diabetes mellitus Continue Lantus, and insulin sliding scale. sitagliptin on hold Essential hypertension. Continue lisinopril. Seizure disorder. Continue Keppra. Hyperlipidemia. Continue atorvastatin and ezetimibe. Depression. Continue Cymbalta and amitriptyline. DVT prophylaxis: Heparin subcut Attending Dr. Winchester Code status Full Quality Stroke Does the patient have a stroke diagnosis?: No VTE Prior VTE?: No VTE Risk Level:: Medical - moderate - high VTE Device Contraindication: Treatment Not Indicated VTE Drug Contraindication: N/A - Med Ordered
[2023-08-08 15:26] VITALS: BP 125/60; PULSE 88; RESP 18; TEMP 37.2; O2SAT 92
[2023-08-08 16:14] LABS: Glucose, Whole Blood 177 mg/dL (60-115)
[2023-08-08 19:57] VITALS: BP 123/61; PULSE 91; RESP 20; TEMP 36.4; O2SAT 92
[2023-08-08 20:14] LABS: Glucose, Whole Blood 182 mg/dL (60-115)
[2023-08-08] MEDS: Atorvastatin Calcium 80 MG TABLET PO (21:06)
[2023-08-08] MEDS: Insulin Glargine,Hum.rec.anlog 100 UNIT/ML 10 ML VIAL 48 UNIT SUBCUT (21:06)
[2023-08-08] MEDS: Amitriptyline HCl 10 MG TABLET PO (21:06)
[2023-08-08 23:54] VITALS: BP 130/66; PULSE 94; RESP 16; TEMP 36.1; O2SAT 97
[2023-08-09] MEDS: 0.9 % Sodium Chloride Flush 3 ML SYRINGE IVFLUSH (00:59)
[2023-08-09 03:49] VITALS: BP 120/65; PULSE 96; RESP 18; TEMP 37; O2SAT 93
[2023-08-09] MEDS: Omeprazole 20 MG CAPSULE.DR PO (06:01)
[2023-08-09 06:44] LABS: B Type Natriuretic Peptide 35 pg/mL (<100)
[2023-08-09 07:38] VITALS: BP 117/63; PULSE 95; RESP 20; TEMP 36.9; O2SAT 93
[2023-08-09 07:46] LABS: Glucose, Whole Blood 92 mg/dL (60-115)
[2023-08-09] MEDS: DULoxetine HCl 30 MG CAPSULE.DR PO (08:51)
[2023-08-09] MEDS: lisinopriL 10 MG TABLET PO (08:51)
[2023-08-09] MEDS: Furosemide 20 MG TABLET PO (08:51)
[2023-08-09] MEDS: levETIRAcetam 1,000 MG TABLET 2000 MG PO (08:51)
[2023-08-09] MEDS: Lidocaine 4 % Patch ADH..PATCH 1 PATCH TRANSDERMA (08:51)
[2023-08-09] MEDS: Aspirin Enteric Coated 81 MG TABLET.DR PO (08:51)
[2023-08-09] MEDS: Ezetimibe 10 MG TABLET PO (08:51)
--- NOTE | 2023-08-09 10:24 | PM.PNCARD ---
Subjective Subjective Date of Service: 08/09/23 Principal diagnosis: No shortness of breath no chest pain. Interval history: Patient denies any cardiac symptoms. Echo reviewed although can not be reported due to system issues shows low normal LVEF of 45-50% with elevated filling pressures. Stress test yesterday was suboptimal. Waiting for vasodilating myocardial perfusion imaging Review of Systems Review of Systems Yes all other systems are reviewed and are negative Physical Exam Vital Signs: Last Vital Signs Temp 98.4 F 08/09/23 07:38 Pulse 95 08/09/23 07:38 Resp 20 08/09/23 07:38 BP 117/63 08/09/23 07:38 Pulse Ox 93 08/09/23 07:38 O2 Del Method Room Air 08/09/23 07:38 BMI result Body Mass Index 32.4 Const Orientation/consciousness: patient oriented x3 Neck Neck: Yes trachea midline, Yes supple and Yes no JVD Resp Effort & Inspection: normal respiratory effort Auscultation: clear to auscultation bilaterally Cardio Jugular venous distension: no JVD Palpation: normal PMI Rate: regular rate Rhythm: regular rhythm Heart sounds: S1 normal heart sound present, S2 normal heart sound present, no click, no gallops, no murmurs and no rubs GI Auscultation: normal bowel sounds Skin General skin exam: no rashes or lesions noted Neuro General: patient oriented x3 and no focal motor deficits Extrem General: Yes no clubbing, cyanosis or edema Objective Labs and Meds 08/07/23 08:58 08/07/23 05:45 Lab results: Laboratory Results - last 24 hr 08/08/23 08/08/23 08/08/23 11:32 16:06 20:10 POC Glucose 90 177 H 182 H B-Natriuretic Peptide 08/09/23 08/09/23 06:01 07:40 POC Glucose 92 B-Natriuretic Peptide 35 Progress Note: A&P Assessment and plan (1) Acute congestive heart failure: Status: Acute Assessment and Plan: Acute congestive heart failure pulmonary region of unclear etiology. Low normal LV ejection fraction noted. Elevated filling pressures noted. Clinically euvolemic and well compensated. Stress test test test suboptimal. Waiting for vasodilating myocardial perfusion imaging today to further assess for myocardial ischemia which is likely cause for acute congestive heart failure. Continue current low-dose diuretic therapy with lisinopril therapy. Blood pressure is well optimized. Continue low-dose aspirin therapy and dual therapy with aspirin and atorvastatin. Further treatment based on the finding of the stress test. Will follow up after testing Time Spent With Patient Time: Total time managing care of this patient today ____ minutes. Progress Note: Quality Stroke Does the patient have a stroke diagnosis?: No Procedures Date of Service Date of Service: 08/09/23
[2023-08-09 12:00] VITALS: BP 129/78; PULSE 97; RESP 20; TEMP 36.5; O2SAT 97
[2023-08-09 12:30] LABS: Glucose, Whole Blood 193 mg/dL (60-115)
--- NOTE | 2023-08-09 13:04 | PM.DS ---
DS: Providers Provider Date of Service: 08/09/23 Date of admission: 08/07/23 04:54 Primary care physician: FLORIDALMA Bullard Consults: 08/07/23 05:08 Consult to Cardiology Routine Consulting Provider: [facility] Reason for consultation: chest pain, CHF Has provider been notified: Yes DS: Diagnosis Discharge Diagnosis (1) Acute congestive heart failure: Status: Acute DS: Summary Hospital Course Hospital Course: History and physical as per admitting provider. Elizabeth Greenwood is a 58 years old woman with past medical history significant for type 2 diabetes on insulin, hypertension, seizure disorder and hyperlipidemia presents to the emergency department complaining of sharp right-sided chest pain that started yesterday in the morning after she woke up associated with shortness of breath on exertion and generalized fatigue. The pain does not radiate with a worsening or relieving factors. Upon arrival to the hospital her shape pain improved. She also reported occasional dry cough and mild headache. She denies any gastrointestinal symptoms such as abdominal pain, nausea, vomiting or diarrhea. She denied any fever or chills. She denies history of congestive heart failure. In the ED, she was found to have stable vital signs. Her blood pressure was initially 179/105. The most recent one is 144/82. Blood workup including CBC and CMP are basically unremarkable. BNP is elevated, 309. Troponin is negative x2. CXR is suspicious for vascular congestion and developing interstitial edema. EKG showed no acute ischemic changes. ED tx: Lasix 40 IV, aspirin 324 mg p.o. Patient is currently free of chest pain. 58-year-old woman treated for acute congestive heart failure with reduced ejection fraction. Seen evaluated by Cardiology, had echocardiogram with EF of 45-50%, HCT was suboptimal therefore nuclear stress test was ordered and benign. Patient started on Lasix 20 mg daily will continue this at home. Plan will be for her to follow-up with Cardiology outpatient. She has had no more complaints of chest pain, troponins have remained flat and there were no ischemic changes noted on EKG. She should continue aspirin and statin and continue blood pressure medications for good blood pressure control. Diabetes mellitus 2. Continue home medications Hypertension. Continue lisinopril Seizure disorder. No seizures during hospitalization. Continue Keppra Hyperlipidemia. Continue statin Depression. Continue Cymbalta and amitriptyline. Time Attestation Discharge coordination time: Greater than 30 minutes Quality: Safe Use of Opioids Does Pt have an Active Cancer Diagnosis on the Problem List?: No Quality: Stroke Does the patient have a stroke diagnosis?: No Physical Exam Vital Signs: Vital Signs: Last Vital Signs Temp 97.7 F 08/09/23 12:00 Pulse 97 08/09/23 12:00 Resp 20 08/09/23 12:00 BP 129/78 08/09/23 12:00 Pulse Ox 97 08/09/23 12:00 O2 Del Method Room Air 08/09/23 12:00 BMI result Body Mass Index 32.4 Appearing in no acute distress head is normocephalic atraumatic eyes pupils are PERRLA sclera is anicteric mouth throat mucous membranes are intact and moist neck is supple no lymphadenopathy, no JVD noted lung sounds are clear to auscultation heart regular rate rhythm, clear S1, S2 positive bowel sounds, abdomen is soft, nontender neuro patient is alert x3, no focal deficits DS: Data Data Completed and Pending Labs on day of discharge: Laboratory Results - last 24 hr 08/08/23 08/08/23 08/09/23 16:06 20:10 06:01 POC Glucose 177 H 182 H B-Natriuretic Peptide 35 08/09/23 08/09/23 07:40 12:16 POC Glucose 92 193 H B-Natriuretic Peptide Discharge Plan Discharge Anticipated Discharge Date/Time: 08/09/23 13:00 Patient Disposition: Home Health Service Discharge Diagnosis: Acute heart failure with reduced ejection fraction Referrals: Erica Rivera FNP [Primary Care Provider] - 1 Week Jarrod Bhatia MD [Physician] - 1 Week Discharge Medications: New furosemide 20 mg Tablet 20 mg PO DAILY Qty: 30 0RF Protocol: Hold for SBP< HOLD for SBP < : 90 Continued aspirin 81 mg tablet,delayed release (DR/EC) 81 mg PO DAILY Qty: 90 0RF cyclobenzaprine 10 mg tablet 10 mg PO DAILY PRN (Reason: muscle spasm) Qty: 30 1RF lisinopril 10 mg tablet 10 mg PO DAILY Qty: 90 1RF Januvia 100 mg tablet 100 mg PO DAILY Qty: 90 0RF atorvastatin 80 mg tablet 80 mg PO BEDTIME Qty: 90 1RF omeprazole 20 mg capsule,delayed release(DR/EC) 20 mg PO BID@0630,1630 Qty: 180 3RF (DME) FreeStyle Guerda 2 Sensor Kit See Rx Instructions .Route Qty: 1 3RF Rx Instructions: As directed (DME) FreeStyle Guerda 2 Bradford Misc See Rx Instructions .Route Qty: 1 0RF Rx Instructions: As directed docusate sodium 100 mg capsule 100 mg PO BID PRN (Reason: Constipation) Qty: 60 3RF acetaminophen 325 mg tablet 650 mg PO Q6H PRN (Reason: Pain) Qty: 90 0RF levetiracetam 1,000 mg tablet 2,000 mg PO BID 30 Days Qty: 120 0RF cetirizine [Zyrtec] 10 mg tablet 10 mg PO DAILY PRN (Reason: allergy symptoms) Qty: 90 0RF duloxetine 30 mg capsule,delayed release(DR/EC) 30 mg PO DAILY Qty: 90 0RF amitriptyline 10 mg tablet 40 mg PO DAILY Qty: 120 0RF ezetimibe 10 mg tablet 10 mg PO DAILY Qty: 90 1RF lidocaine 5 % Adhesive Patch,Medicated 1 patch TOPICAL DAILY Rx Instructions: leave on most painful area for up to 12 hrs ketorolac 0.5 % drops 1 drp ophthalmic (eye) TID PRN (Reason: Allergy Symptoms) insulin lispro 100 unit/mL insulin pen 1 sliding scale dose subcut TIDAC Rx Instructions: 5 units if BG <250, 10 units if Bg > 250 Invokana 300 mg tablet 300 mg PO DAILY meloxicam 15 mg tablet 15 mg PO DAILY PRN (Reason: Pain) insulin glargine [Lantus Solostar U-100 Insulin] 100 unit/mL (3 mL) insulin pen 48 unit subcut BEDTIME Discharge Orders: Discharge Order (Routine); Ordered 08/09/23 Ordered By: Magda Flaherty Diet: Advance to usual diet Activity on Discharge: As tolerated Stand Alone Forms: Patient Portal Discharge page Care Plan Goals: You have been started on a new medication for congestive heart failure hold Lasix, take 20 mg daily Health Concerns: Follow-up with primary care provider as needed Follow-up with cardiology in office as outpatient Take all medications as prescribed Plan of Treatment: Acute heart failure with reduced ejection fraction Chest pain Assessment: See discharge summary
--- NOTE | 2023-08-09 13:07 | P.F2F_ITS ---
Service Date Service Date: 08/09/23 Encounter Date of encounter: 08/09/23 Reasons for Services Signs and symptoms assessed: Heart failure with reduced ejection fraction Chest pain Hypertension Reason for intermediate: CV/CP assess and/or care and medication management Homebound: Leaving the home is medically contraindicated at this time without the asist of a device and/or another person due th the listed conditions above and below. Reason homebound: other (New onset heart failure, hypertension, depression) Certification: Based on the above findings, I certify that this patient is confined to the home and needs intermittent intermediate care, physical therapy and/or speech therapy, or continues to need occupational therapy. The patient is under my care, and I have initiated the establishment of the plan of care. The patient will be followed by a physician who will periodically review the plan of care. Time Spent With Patient Time: Total time managing care of this patient today ____ minutes.
--- NOTE | 2023-08-09 16:19 | MHC.CM.PN ---
Pt medically cleared for D/C home with new [facility]. Pts daughter transported her home.
== END 2023-08-09 13:57 | disposition home health service (06) | DRG 194 ==
LOC: HO.ED 04:22 → HO.EDOVER 07:28 → HO.IMC 07:59 → HO.EDOVER 08-08 09:24 → HO.IMC 08-08 09:24
PROVIDERS: Physician Assistant Medical; Admitting Provider Internal Medicine; Emergency Provider Emergency Medicine Emergency Medical Services; PCP Nurse Practitioner Family; Visit Provider Nurse Practitioner Acute Care
DX: I11.0 Hypertensive heart disease with heart failure (principal); E11.9 Type 2 diabetes mellitus without complications; E78.5 Hyperlipidemia, unspecified; G40.909 Epilepsy, unspecified, not intractable, without status epilepticus; F32.A Depression, unspecified; Z20.822 Contact with and (suspected) exposure to COVID-19; I50.21 Acute systolic (congestive) heart failure; Z79.4 Long term (current) use of insulin; Z79.82 Long term (current) use of aspirin; Z79.899 Other long term (current) drug therapy
CPT/HCPCS: 36415; 71045; 78452; 80048; 80053; 81001; 82947; 83735; 83880; 84484; 85025; 85027; 87086; 87502; 87635; 93005; 93017; 93306; 99285; A9500; J0280; J1940; J2785; Q9957

== ENCOUNTER 2023-08-07 04:54 | Outpatient (BNV) | payer OTHER, SELFPAY | END 2023-08-08 11:40 | PROVIDERS: Admitting Provider Internal Medicine; Emergency Provider Emergency Medicine Emergency Medical Services; PCP Nurse Practitioner Family; Visit Provider Internal Medicine | DX: I50.9 Heart failure, unspecified (principal); R07.9 Chest pain, unspecified | CPT/HCPCS: 78452; 93016; 93018; 93306 ==

== ENCOUNTER → 2023-08-07 04:54 | Outpatient (BNV) | payer OTHER, SELFPAY | PROVIDERS: Admitting Provider Internal Medicine; Emergency Provider Emergency Medicine Emergency Medical Services; Visit Provider Internal Medicine | DX: J81.0 Acute pulmonary edema (principal); R07.89 Other chest pain; E11.9 Type 2 diabetes mellitus without complications; I10 Essential (primary) hypertension | CPT/HCPCS: 99222; 99232; 99239; 99499; G0180 ==

== ENCOUNTER → 2023-08-07 04:54 | Outpatient (BNV) | payer OTHER, SELFPAY | PROVIDERS: Admitting Provider Internal Medicine; Emergency Provider Emergency Medicine Emergency Medical Services; Visit Provider Internal Medicine Cardiovascular Disease | DX: R07.9 Chest pain, unspecified (principal); I50.9 Heart failure, unspecified | CPT/HCPCS: 93010; 93016; 93018; 99223; 99233 ==

== ENCOUNTER 2023-08-15 14:25 | Outpatient (AMB) | payer OTHER, SELFPAY ==
--- NOTE | 2023-08-15 14:33 | MHC.PC.OV ---
Vital Signs 08/15/23 14:37 Height 5 ft 3 in Weight 171 lb 4 oz BMI 30.3 BP 150/80 H Blood Pressure Location Rt brachial Position Sitting Pulse 96 Pulse Source Pulse Oximeter Pulse Oximetry (%) 96 Oxygen Delivery Method Room Air Int[facility] Intake Note: Patient is here for hospital discharge follow up. [place] [facility] [place]. [employer] Supervisor Required: Yes [employer] Supervisor Language: Campground Attendant Name: Kaitlyn([id number]) Information Interpreted: non-clinical & clinical Resident Inspector: Present Accompanied by: Nephew or Niece Allergies No Known Allergies Allergy (Verified 08/15/23 15:04) Medication List - Last Reconciled 08/15/23 by Zachariah Horvath MD acetaminophen 650 mg (2 x 325 mg) PO Q6H PRN amitriptyline 40 mg (4 x 10 mg) PO DAILY aspirin 81 mg PO DAILY atorvastatin 80 mg PO BEDTIME canagliflozin (Invokana) 300 mg PO DAILY cetirizine (Zyrtec) 10 mg PO DAILY PRN cyclobenzaprine 10 mg PO DAILY PRN docusate sodium 100 mg PO BID PRN duloxetine 30 mg PO DAILY ezetimibe 10 mg PO DAILY flash glucose scanning reader ([employer] Guerda 2 [place]) As directed flash glucose sensor (FreeStyle Guerda 2 Sensor kit) As directed furosemide 20 mg See Protocol PO DAILY insulin glargine (Lantus Solostar U-100 Insulin) 48 units subcut BEDTIME insulin lispro 1 sliding scale dose subcut TIDAC ketorolac 0.5% 1 drp ophthalmic (eye) TID PRN levetiracetam 2,000 mg (2 x 1,000 mg) PO BID 30 days lidocaine 5% 1 patch topical DAILY lisinopril 10 mg PO DAILY meloxicam 15 mg PO DAILY PRN omeprazole 20 mg PO BID@0630,1630 sitagliptin phosphate (Januvia) 100 mg PO DAILY Tobacco use date assessed: 08/15/23 Dental Screening Dental Screen Date: 08/15/23 Did you have a dental visit in the last 12 months?: Yes Did you have a dental problem in the last 6 months where you did not have access to dental care?: No Was dental information given to patient?: Patient has dentist HPI [facility] heart failure [facility] HPI Details 58-year-old female presents to the office after being recently discharged from the hospital. Patient had an exacerbation of heart failure and was discharged after titration of her medications. She has a visiting nurse who has been recording elevated blood pressures at home. Patient only speaks Portuguese and history is through her nephew. She reports no symptoms of headache or shortness of breath. No swelling in the feet. [facility] Medical History Encounter to establish care Diabetic retinopathy Type 2 diabetes mellitus with hyperglycemia, with long-term current use of insulin Essential hypertension Hyperlipidemia LDL goal <100 Gastroparesis Hyperlipidemia Depression Asthma Epilepsy Diabetes Hypertension Surgical History Hx of colonoscopy (~06/2018) H/O esophagogastroduodenoscopy (03/14/18) History of ankle surgery H/O section Family History (Updated 08/15/23 @ 14:34 by KRISTEN España) Mother Diabetes Father Diabetes Social History Household Members: Spouse, Children and Caregiver Housing: Apartment Do you presently have visiting nurse or other home services: Yes ([facility] Visiting nurse. [phone], can call in regrads to patients care.) Alcohol intake: never Patient Tobacco Use Status: Never used Tobacco e-Cigarette/Vaping Use: Never Used Second Hand Smoke Exposure: No service: No Current occupational status: unemployed Cognitive needs: Yes (cane/walker) Hearing needs: No Vision needs: Yes (glasses) Questionnaire PHQ-9 Over the last 2 weeks, how often have you been bothered by any of the following problems? 1. Little interest or pleasure in doing things: not at all 2. Feeling down, depressed, or hopeless: several days 3. Trouble falling or staying asleep, or sleeping too much: not at all 4. Feeling tired or having little energy: several days 5. Poor appetite or overeating: not at all 6. Feeling bad about yourself - or that you are a failure or have let yourself or your family down: not at all 7. Trouble concentrating on things, such as reading the newspaper or watching television: not at all 8. Moving or speaking so slowly that other people could have noticed. Or the opposite - being so fidgety or restless that you have been moving around a lot more than usual: not at all 9. Thoughts that you would be better off or of hurting yourself in some way: not at all Total score: 2 Source: Developed by Drs. Vasu Gentile, Harriet Garrido, Carlitos Goldstein and colleagues, with an educational shira from [employer]. Thrive Questionnaire Date Thrive assessed: 08/15/23 I am a: Patient What is your living situation today?: I have a steady place to live Within the past 12 months, did the food you bought not last and you didn't have the money to get more?: Never true Within the past 12 months, did you worry whether your food would run out before you got money to buy more?: Never true Do you have trouble paying for medicines?: No Do you have trouble getting transportation to medical appointments?: No Do you have trouble paying your heating and electricity bill?: No Do you have trouble taking care of your child, family member or friend?: No Do you have trouble with day-to-day activities such as bathing, preparing meals, shopping, managing finances, etc.?: No Are you currently unemployed and looking for a job?: No Are you interested in more education?: No Currently or been in a relationship where the following occur: no concerns reported THRIVE Score: 0 AUDIT C Alcohol Use Questionnaire (AUDIT-C) 1. How often do you have a drink containing alcohol?: Never Total Score: 0 IRWIN-7 AMB Questionnaire IRWIN-7 Date IRWIN - 7 assessed: 08/15/23 Feeling nervous, anxious, or on edge: 0 = Not at all Not being able to stop or control worryin = Not at all Worrying too much about different things: 0 = Not at all Trouble relaxin = Not at all Being so restless that it is hard to sit still: 0 = Not at all Becoming easily annoyed or irritable: 0 = Not at all Feeling afraid as if something awful might happen: 0 = Not at all Total IRWIN-7 score (0-4 normal; 5-9 mild; 10-14 moderate; 15-21 severe): 0 Source: Developed by Drs. aVsu Gentile, Harriet Garrido, Carlitos Goldstein and colleagues, with an educational shira from [employer]. Physical exam (Primary Care) Vital Signs: Last Vital Signs Pulse 96 08/15/23 14:37 BP 150/80 H 08/15/23 14:37 Pulse Ox 96 08/15/23 14:37 Oxygen Delivery Method Room Air 08/15/23 14:37 BMI result Body Mass Index 30.3 Tobacco/Smoking Status: Tobacco use Status Tobacco use date assessed 08/15/23 08/15/23 14:41 Patient Tobacco Use Status Never used Tobacco 08/15/23 14:35 e-Cigarette/Vaping Use Never Used 08/15/23 14:41 PHQ-9: PHQ-9 Score PHQ-9: Total score 2 08/15/23 14:51 Thrive Assessment: Date of Thrive Assessment Date Thrive assessed 08/15/23 08/15/23 14:35 Currently or been in a relationship where the following occur: no concerns reported Const General: cooperative and healthy appearing Nutritional Appearance: well nourished Orientation/consciousness: patient oriented x3 Limitations: no limitations HENMT Head: Yes normal to inspection Eyes General: appearance normal, both eyes and all related structures Neck Neck: Yes normal visual inspection Chest Chest palpation & inspection: normal palpation of entire chest wall Resp Effort & Inspection: normal respiratory effort Neuro General: patient oriented x3 Assessment and Plan Assessment & Plan (1) Essential hypertension: Code(s): I10 - Essential (primary) hypertension Plan: Elevated blood pressure has been treated with increasing the dose of lisinopril to 20 mg once a day. This was informed to the [facility] via phone [phone]. Medications: New lisinopril 20 mg PO DAILY 90 tabs 0RF Discontinued lisinopril Discontinued Reason: Doctor's Order 10 mg PO DAILY 90 tabs 1RF I10 - Essential (primary) hypertension Coding Level of Care Code Est Pt Level 4 (73698) Diagnoses Essential hypertension I10
[2023-08-15 14:37] VITALS: BP 150/80; PULSE 96; O2SAT 96; BMI 30.3
== END 2023-08-15 15:03 | disposition home or self-care (01) ==
PROVIDERS: PCP Nurse Practitioner Family; Visit Provider Internal Medicine
DX: I10 Essential (primary) hypertension (principal)
CPT/HCPCS: 99214

== ENCOUNTER 2023-08-19 08:10 | Outpatient (AMB) | payer OTHER, SELFPAY ==
[2023-08-19 09:19] VITALS: BP 130/82; PULSE 88; BMI 30.1
--- NOTE | 2023-08-19 09:19 | MHC.OFFVIS ---
Intake Vital Signs 08/19/23 09:19 Height 5 ft 3 in Weight 169 lb 12.095 oz BMI 30.1 BP 130/82 Blood Pressure Location Rt brachial Position Sitting Pulse 88 Intake Visit Reasons: [facility] [place] Ed dc f/up Intake Note: [facility] ED follow up Warehouse Order Selector Required: No Accompanied by: Daughter Allergies No Known Allergies Allergy (Verified 08/19/23 09:20) Medication List - Last Reconciled 08/19/23 by CORDE[facility] Fish acetaminophen 650 mg (2 x 325 mg) PO Q6H PRN amitriptyline 40 mg (4 x 10 mg) PO DAILY aspirin 81 mg PO DAILY atorvastatin 80 mg PO BEDTIME canagliflozin (Invokana) 300 mg PO DAILY cetirizine (Zyrtec) 10 mg PO DAILY PRN cyclobenzaprine 10 mg PO DAILY PRN docusate sodium 100 mg PO BID PRN duloxetine 30 mg PO DAILY ezetimibe 10 mg PO DAILY flash glucose scanning reader ([employer] Guerda 2 [place]) As directed flash glucose sensor (FreeStyle Guerda 2 Sensor kit) As directed furosemide 20 mg See Protocol PO DAILY insulin glargine (Lantus Solostar U-100 Insulin) 48 units subcut BEDTIME insulin lispro 1 sliding scale dose subcut TIDAC ketorolac 0.5% 1 drp ophthalmic (eye) TID PRN levetiracetam 2,000 mg (2 x 1,000 mg) PO BID 30 days lidocaine 5% 1 patch topical DAILY lisinopril 20 mg PO DAILY meloxicam 15 mg PO DAILY PRN omeprazole 20 mg PO BID@0630,1630 sitagliptin phosphate (Januvia) 100 mg PO DAILY HPI [facility] Ed dc f/up HPI Details Elizabeth is a 58-year-old female with past medical history of hypertension, hyperlipidemia, diabetes who was recently admitted to [facility] with intermittent chest pain and shortness of breath. She was treated for congestive heart failure. An echocardiogram showed EF 45-50%. She was diuresed and sent home with Lasix 20 mg daily. Today she reports she has been doing well since her hospital discharge. Her breathing is back to normal. She describes some brief nonexertional discomfort in her chest. No palpitations, lightheadedness, presyncope, syncope, PND, orthopnea or edema. She does light physical activity. She has been taking her meds as directed. Family member present. [facility] Medical History (Updated 08/19/23 @ 14:15 by [facility] Fish) Encounter to establish care Diabetic retinopathy Type 2 diabetes mellitus with hyperglycemia, with long-term current use of insulin Essential hypertension Hyperlipidemia LDL goal <100 Gastroparesis Hyperlipidemia Depression Asthma Epilepsy Diabetes Hypertension Surgical History Hx of colonoscopy (~06/2018) H/O esophagogastroduodenoscopy (03/14/18) History of ankle surgery H/O section Family History Mother Diabetes Father Diabetes Social History Household Members: Spouse, Children and Caregiver Housing: Apartment Do you presently have visiting nurse or other home services: Yes ([facility] Visiting nurse. [phone], can call in regrads to patients care.) Alcohol intake: never Patient Tobacco Use Status: Never used Tobacco e-Cigarette/Vaping Use: Never Used Second Hand Smoke Exposure: No service: No Current occupational status: unemployed Cognitive needs: Yes (cane/walker) Hearing needs: No Vision needs: Yes (glasses) Review of Systems Const All systems reviewed & are unremarkable except as noted in HPI and below Denies weakness ENT Denies dizziness Card Denies chest pain with activity, Denies syncope, Denies rapid heart rate, Denies pedal edema, Denies edema, Denies leg edema, Denies lightheadedness, Denies dyspnea on exertion and Denies orthopnea Resp Denies cough and Denies dyspnea on exertion GI Denies hematochezia and Denies change in stool character Musc Denies abnormal gait, Denies muscle cramps, Denies muscle weakness, Denies numbness, Denies radiating pain into limb and Denies tingling Neuro Denies abnormal gait, Denies dizziness, Denies syncope, Denies numbness, Denies tingling and Denies weakness Physical Exam Vital Signs: Last Vital Signs Pulse 88 08/19/23 09:19 BP 130/82 08/19/23 09:19 BMI result Body Mass Index 30.1 Const General: cooperative, healthy appearing, comfortable and no acute distress Orientation/consciousness: patient oriented x3 Neck Neck: Yes normal visual inspection Resp Effort & Inspection: normal respiratory effort Auscultation: clear to auscultation bilaterally, no rales, no rhonchi and no wheezes Cardio Jugular venous distension: no JVD Rate: regular rate Rhythm: regular rhythm Heart sounds: S1 normal heart sound present, S2 normal heart sound present, no murmurs and no rubs Neuro General: patient oriented x3 Extrem General: Yes normal to inspection, No no pedal edema and No calf tenderness Psych Appearance: grossly normal Mental Status: mental status grossly normal Speech and movement: Normal speech and movement present Assessment & Plan Assessment & Plan (1) Congestive heart failure: Code(s): I50.9 - Heart failure, unspecified Qualifiers: Heart failure type: systolic Plan: Recent [facility] admission for shortness of breath. She was found to have BNP elevated at 30 and chest x-ray with findings suspicious for vascular congestion and developing interstitial edema. A echocardiogram showed EF 45-50%, mild LVH, normal valves. Treated for acute systolic Congestive heart failure. She was diuresed and then sent home with Lasix 20 mg IV. A nuclear stress test showed probable normal myocardial perfusion imaging. Today she reports doing well since her hospital discharge. Her breathing is back to normal. With her mild LVH her cardiomyopathy may be related to hypertension. She is currently on lisinopril 20 mg daily. Will add carvedilol 3.125 mg b.i.d.. Continue aspirin and atorvastatin. Signs and symptoms of heart failure reviewed with her. Cardiology follow-up in 3 months, sooner if needed (2) Cardiomyopathy: Code(s): I42.9 - Cardiomyopathy, unspecified Plan: New finding as above (3) Hypertension: Code(s): I10 - Essential (primary) hypertension Plan: Normal range at present. Documentation of elevated blood pressure on 08/15/2023 at 150/80. Will continue lisinopril. Adding carvedilol to help with neurohormonal modulation. (4) Hyperlipidemia LDL goal <100: Code(s): E78.5 - Hyperlipidemia, unspecified Plan: [place] blood pressure goal less than 70 in patient with diabetes. This has been managed by her PCP. Labs done 06/28/2023 showed LDL 112. She continues on high-dose atorvastatin and Zetia. No known history of CAD. If LDL continues to be above goal then can consider use of PCSK9 inhibitor. (5) Hospital discharge follow-up: Code(s): Z09 - Encounter for follow-up examination after completed treatment for conditions other than malignant neoplasm Plan: As above Plan Time spent on chart review, documentation, interview and assessment Medications: New carvedilol must administer with a meal/food 3.125 mg PO BID 60 tabs 5RF Coding Level of Care Code Est Pt Level 4 (73691) Diagnoses Congestive heart failure I50.9 Heart failure type: systolic Cardiomyopathy I42.9 Hypertension I10 Hyperlipidemia LDL goal <100 E78.5 Hospital discharge follow-up Z09 Time Spent (min) 28
== END 2023-08-19 09:50 | disposition home or self-care (01) ==
PROVIDERS: PCP Nurse Practitioner Family; Visit Provider Nurse Practitioner Family
DX: I50.9 Heart failure, unspecified (principal); I42.9 Cardiomyopathy, unspecified; I10 Essential (primary) hypertension; E78.5 Hyperlipidemia, unspecified; Z09 Encounter for follow-up examination after completed treatment for conditions other than malignant neoplasm
CPT/HCPCS: 99214

== ENCOUNTER → 2023-08-19 08:10 | Outpatient (BNVA) | payer OTHER, SELFPAY | PROVIDERS: PCP Nurse Practitioner Family; Visit Provider Nurse Practitioner Family | DX: Z09 Encounter for follow-up examination after completed treatment for conditions other than malignant neoplasm (principal); I11.0 Hypertensive heart disease with heart failure; I50.9 Heart failure, unspecified; I42.9 Cardiomyopathy, unspecified; E78.5 Hyperlipidemia, unspecified | CPT/HCPCS: 99212 ==

== ENCOUNTER 2023-09-01 12:50 | Outpatient (AMB) | payer OTHER, SELFPAY ==
--- NOTE | 2023-09-01 12:59 | MHC.PC.OV ---
Vital Signs 09/01/23 13:00 Height 5 ft 3 in Weight 169 lb BMI 29.9 BP 162/96 H Blood Pressure Location Rt brachial Position Sitting Respiration 16 Pulse 94 Pulse Source Pulse Oximeter Pulse Oximetry (%) 98 Oxygen Delivery Method Room Air Intake Visit Reasons: Cataract Surgery Intake Note: Patient is here for a Pre-op for Left Cataracts Surgery scheduled with Dr. Toño Clarke MD on 09/22/23. Today, the patient expressed concern about experiencing left lower back pain for the past week and questioned the possibility of fluid in the lungs due to limited restroom visits, occurring only once per day. Staff Certified Nurse Midwife Required: Yes Staff Certified Nurse Midwife Language: Bulgarian Accompanied by: Self / Same As Patient Allergies No Known Allergies Allergy (Verified 09/01/23 13:12) Medication List - Last Reconciled 09/01/23 by Aníbal Nassar PA-C acetaminophen 650 mg (2 x 325 mg) PO Q6H PRN amitriptyline 40 mg (4 x 10 mg) PO DAILY aspirin 81 mg PO DAILY atorvastatin 80 mg PO BEDTIME canagliflozin (Invokana) 300 mg PO DAILY carvedilol 6.25 mg PO BID cetirizine (Zyrtec) 10 mg PO DAILY PRN cyclobenzaprine 10 mg PO DAILY PRN docusate sodium 100 mg PO BID PRN duloxetine 30 mg PO DAILY ezetimibe 10 mg PO DAILY flash glucose scanning reader (FreeStyle Guerda 2 [place]) As directed flash glucose sensor (FreeStyle Guerda 2 Sensor kit) As directed furosemide 20 mg See Protocol PO DAILY 90 days insulin glargine (Lantus Solostar U-100 Insulin) 48 units subcut BEDTIME insulin lispro 1 sliding scale dose subcut TIDAC ketorolac 0.5% 1 drp ophthalmic (eye) TID PRN levetiracetam 2,000 mg (2 x 1,000 mg) PO BID 30 days lidocaine 5% 1 patch topical DAILY lisinopril 40 mg PO DAILY meloxicam 15 mg PO DAILY PRN omeprazole 20 mg PO BID@0630,1630 sitagliptin phosphate (Januvia) 100 mg PO DAILY Tobacco use date assessed: 08/15/23 Dental Screening Dental Screen Date: 09/01/23 Did you have a dental visit in the last 12 months?: Yes Did you have a dental problem in the last 6 months where you did not have access to dental care?: No Was dental information given to patient?: Patient has dentist HPI Cataract Surgery HPI Details Patient is a 58-year-old female here today for preop visit. Patient has a past medical history significant for cardiomyopathy and congestive heart failure, hypertension, seizure disorder, type 2 diabetes, hyperlipidemia Patient is due for cataract removal procedure. Patient recently admitted to [facility] for acute Congestive heart failure exacerbation. Echocardiogram showing acceptable EF. Followed by cardiology home carvedilol. Patient does report feeling somewhat tired. Noted blood pressure to be elevated today in office. She reports that home blood pressures have been elevated. Will increase her lisinopril dose to maximal 40 mg for better blood pressure control [facility] Medical History Encounter to establish care Diabetic retinopathy Type 2 diabetes mellitus with hyperglycemia, with long-term current use of insulin Essential hypertension Hyperlipidemia LDL goal <100 Gastroparesis Hyperlipidemia Depression Asthma Epilepsy Diabetes Hypertension Surgical History Hx of colonoscopy (~06/2018) H/O esophagogastroduodenoscopy (03/14/18) History of ankle surgery H/O section Family History Mother Diabetes Father Diabetes Social History Household Members: Spouse, Children and Caregiver Housing: Apartment Do you presently have visiting nurse or other home services: Yes ([facility] Visiting nurse. [phone], can call in regrads to patients care.) Alcohol intake: never Patient Tobacco Use Status: Never used Tobacco e-Cigarette/Vaping Use: Never Used Second Hand Smoke Exposure: No service: No Current occupational status: unemployed Cognitive needs: Yes (cane/walker) Hearing needs: No Vision needs: Yes (glasses) Questionnaire Thrive Questionnaire Date Thrive assessed: 08/15/23 IRWIN-7 AMB Questionnaire IRWIN-7 Date IRWIN - 7 assessed: 08/15/23 Source: Developed by Drs. Vasu Gentile, Harriet Garrido, Carlitos Goldstein and colleagues, with an educational shira from [employer]. Review of Systems Const Denies headache(s) Eyes Denies loss of vision ENT Denies vertigo, Denies dizziness, Denies headache(s) and Denies sore throat Card Denies chest pain, Denies leg edema and Denies lightheadedness Resp Denies cough, Denies hemoptysis and Denies wheezing GI Denies abdominal pain, Denies melena, Denies constipation, Denies diarrhea and Denies vomiting Denies urinary frequency, Denies dysuria and Denies urinary urgency Musc Denies arthralgias, Denies joint swelling, Denies numbness and Denies tingling Neuro Denies Abnormal speech present, Denies behavioral changes, Denies vertigo, Denies dizziness, Denies headache(s), Denies loss of vision, Denies memory loss, Denies numbness and Denies tingling Psych Denies anxiety, Denies behavioral changes, Denies depression, Denies memory loss and Denies panic attacks Vinod/Lymph Denies easy bleeding and Denies easy bruising Aller/Immun Denies wheezing Physical exam (Primary Care) Vital Signs: Last Vital Signs Pulse 94 09/01/23 13:00 Resp 16 09/01/23 13:00 BP 162/96 H 09/01/23 13:00 Pulse Ox 98 09/01/23 13:00 Oxygen Delivery Method Room Air 09/01/23 13:00 BMI result Body Mass Index 29.9 Tobacco/Smoking Status: Tobacco use Status Tobacco use date assessed 08/15/23 09/01/23 13:01 Patient Tobacco Use Status Never used Tobacco 09/01/23 13:01 e-Cigarette/Vaping Use Never Used 09/01/23 13:01 Thrive Assessment: Date of Thrive Assessment Date Thrive assessed 08/15/23 09/01/23 13:01 Const General: healthy appearing, no acute distress, alert and awake Nutritional Appearance: well nourished Orientation/consciousness: oriented to person, oriented to place and oriented to time HENMT Ears: TM's normal bilaterally General nose exam: Normal nasal mucous membranes and turbinates present Eyes Conjunctivae: conjunctivae normal Sclerae: sclerae normal Pupils: Equal, round and reactive pupils present Neck Neck: Yes no lymphadenopathy and Yes no JVD Thyroid: Thyroid normal Carotids: no bruits Resp Effort & Inspection: normal respiratory effort and not tachypneic Auscultation: no crackles, no rales, no rhonchi and no wheezes Cardio Rate: regular rate Rhythm: regular rhythm Heart sounds: no murmurs and normal S1 and S2 GI Palpation (GI): Soft to palpation, nontender, no hepatomegaly and no splenomegaly Auscultation: normal bowel sounds Skin General skin exam: no rashes or lesions noted and dry skin Neuro General: oriented to person, oriented to place and oriented to time Cranial nerves: Yes Equal, round and reactive pupils present Speech: No Abnormal speech present Gait exam (Neuro): Normal gait present Motor exam (neuro): no tremor noted Extrem Right upper extremity: full ROM Left upper extremity: full ROM Right lower extremity: full ROM; no edema Left lower extremity: full ROM; no edema Psych Mental Status: mental status grossly normal Speech and movement: Normal speech and movement present Affect: normal affect Attitude: cooperative Thought process: Normal thought process present Assessment and Plan Assessment & Plan (1) Pre-op evaluation: Code(s): Z01.818 - Encounter for other preprocedural examination Plan: Patient's blood pressure elevated today thus will increase her lisinopril. Most recent labs and EKG are stable. Patient is medically clear for cataract (2) Cataract: Code(s): H26.9 - Unspecified cataract Qualifiers: Age-related cataract type: other Cataract type: age-related Laterality: bilateral Qualified Code(s): H25.89 - Other age-related cataract (3) Congestive heart failure: Code(s): I50.9 - Heart failure, unspecified Qualifiers: Heart failure chronicity: chronic Heart failure type: systolic Qualified Code(s): I50.22 - Chronic systolic (congestive) heart failure Plan: Followed by Cardiology, appears to be euvolemic on physical exam today. Blood pressure elevated thus will increase her lisinopril dose to maximal dose 40 mg. Medications: New lisinopril 40 mg PO DAILY 90 tabs 1RF I10 - Essential (primary) hypertension Changed From furosemide 20 mg See Protocol PO DAILY 30 tabs 0RF I50.9 - Heart failure, unspecified To furosemide 20 mg See Protocol PO DAILY 90 days 90 tabs 1RF I50.9 - Heart failure, unspecified Discontinued lisinopril Discontinued Reason: Doctor's Order 20 mg PO DAILY 90 tabs 0RF Coding Level of Care Code Est Pt Level 4 (91019) Diagnoses Pre-op evaluation Z01.818 Other age-related cataract of both eyes H25.89 Age-related cataract type: other Cataract type: age-related Laterality: bilateral Chronic systolic congestive heart failure I50.22 Heart failure chronicity: chronic Heart failure type: systolic
[2023-09-01 13:00] VITALS: BP 162/96; PULSE 94; RESP 16; O2SAT 98; BMI 29.9
== END 2023-09-01 14:58 | disposition home or self-care (01) ==
PROVIDERS: PCP Nurse Practitioner Family; Visit Provider Physician Assistant
DX: H25.89 Other age-related cataract (principal); Z01.818 Encounter for other preprocedural examination; I50.22 Chronic systolic (congestive) heart failure
CPT/HCPCS: 99214

== ENCOUNTER 2023-09-14 06:49 | Emergency (ER) | payer OTHER, SELFPAY ==
--- NOTE | ~2023-09-14 | CT_ITS ---
EXAMINATION: CT ABDOMEN AND PELVIS WITHOUT CONTRAST CLINICAL INFORMATION: Pain, question retained insulin. No soft tissue hematomas or stranding. COMPARISON: None available. TECHNIQUE: Multidetector volumetric imaging was performed from the superior aspect of the liver through the pubic symphysis. Sagittal and coronal reformatted images were obtained on the technologist's workstation. This CT examination was performed using dose optimization techniques as appropriate, variously including the following: *Automated exposure control *Adjustment of mA and/or kV according to patient size (this includes techniques or standardized protocols for targeted exams where dose is matched to indication/reason for exam; i.e. extremities or head) *Use of iterative reconstruction technique DLP: 635 mGy-cm FINDINGS: CUSHION FILLER: Fecal retention. Degenerative changes lumbar spine. LUNG BASES: Mild basilar atelectasis. LIVER, GALLBLADDER, AND BILIARY TREE: The liver is normal in size, shape, and attenuation. No focal hepatic lesion or biliary ductal dilatation is present. The gallbladder is unremarkable with no evidence of radiopaque gallstones, gallbladder wall thickening, or obvious pericholecystic inflammatory changes. PANCREAS: Unremarkable. SPLEEN: Unremarkable. ADRENAL GLANDS: Unremarkable. KIDNEYS AND URETERS: The kidneys are normal in size, shape, and attenuation. No hydronephrosis, hydroureter, or calculi seen. Likely left renal vascular calcifications. No perinephric stranding. BLADDER: Unremarkable. GASTROINTESTINAL TRACT: Small thickened hiatal hernia. Stomach is not ideally distended. Nonobstructive bowel pattern. Fecalization terminal ileum. Unremarkable appendix. Moderate to moderately severe fecal retention. Mild diverticulosis without diverticulitis. ABDOMINAL WALL: Moderate fat filled umbilical hernia. LYMPH NODES: No pathologic lymphadenopathy. Nonspecific iliac and inguinal lymph nodes. VASCULAR: Atherosclerotic calcifications. Normal caliber inferior vena cava. PELVIC VISCERA: Unremarkable. OSSEOUS AND SOFT TISSUE STRUCTURES: No CT evidence of retained metallic needle. 8 mm right breast nodule, 3:3. Vacuum disc phenomena, disc space narrowings and spurring L3-S1. CT/CT abdomen pelvis wo IV con IMPRESSION: No CT evidence of retained metallic needle or other focal soft tissue abnormalities. 8 mm right breast nodule. Correlate with mammography. Fecal retention. Mild diverticulosis without diverticulitis. Fleischner guidelines were followed.
[2023-09-14 06:54] VITALS: BP 170/88; BP 173/87; PULSE 92; RESP 18; TEMP 37.2; O2SAT 98; O2SAT 99; BMI 30.9
[2023-09-14 07:19] LABS: MANUAL DIFF FLAG NO
[2023-09-14 07:20] LABS: Basophils Percent Auto 0.5 % (0-2); Eosinophils Absolute Auto 0.3 X10*3/uL (0.0-0.4); Eosinophils Percent Auto 4.7 % (0-4); Hematocrit 35.3 % (37.0-47.0); Hemoglobin 11.8 g/dl (12.0-16.0); Imm Gran Abs Auto 0.01 X10*3/uL (0.00-0.03); Imm Gran Pct Auto 0.2 % (0.0-0.4); Lymphocytes Percent Auto 29.9 % (20-40); Mean Corpuscular HGB Conc 33.4 g/dl (31.0-35.0); Mean Corpuscular Hemoglobin 29.2 pg (27.0-33.0); Mean Corpuscular Volume 87.4 fL (80.0-98.0); Monocytes Absolute Auto 0.3 X10*3/uL (0.1-1.2); Monocytes Percent Auto 4.4 % (2-11); Neutrophils Percent Auto 60.3 % (45-73); Platelet Count 261 X10*3/uL (160-400); Red Blood Count 4.04 X10*6/uL (4.20-5.50); Red Cell Distribution Width 12.2 % (11.0-16.0); White Blood Count 6.6 X10*3/uL (4.8-10.8)
[2023-09-14 07:42] LABS: Anion Gap 10 (12-20); Blood Urea Nitrogen 15 mg/dL (9-16); Calcium 9.4 mg/dL (8.4-10.2); Carbon Dioxide 31 mmol/L (22-29); Chloride 106 mmol/L (96-108); Creatinine Clr Calc Pharmacy 82.2; Estimated Glomerular Filt Rate > 60; Glucose Random 137 mg/dL (60-115); Potassium 3.8 mmol/L (3.3-5.1); Sodium 143 mmol/L (135-145)
[2023-09-14 10:11] VITALS: BP 166/92; PULSE 90; RESP 16; O2SAT 95
--- NOTE | 2023-09-14 10:12 | PC.NURSE ---
Pt alert and oriented, Green[place]ic speaking. States LUQ abd pain x 4 days, denies n/v/d. +bowel sounds x 4 quads, no facial grimace or guarding noted. Skin pwd. Speaking full sentences. UA sent and SARS obtained/sent. Awaiting CT scan results at this time.
[2023-09-14 10:14] LABS: Appearance Urine Turbid; Color Urine Yellow; Glucose Urine UA 250 mg/dL (Negative); Leukocyte Esterase Urine Large (3+) (Negative); Nitrite Urine Negative (Negative); PH 5.5 (5.0-9.0); Specific Gravity - Urine 1.015 (1.005-1.025); UMIC TRIGGER UACC YES; Urine Blood Trace (Negative); Urine Ketones Negative (Negative); Urine Protein 100 (2+) mg/dL (Neg-Trace)
[2023-09-14 10:38] LABS: Bacteria Urine 4+ (None Seen); Hyaline Casts Urine 0-2 /LPF (0-2); RBC Urine 0-2 /HPF (0-2); Squamous Epithelial Cell Urine >20 /HPF (0-2); UACC Culture Trigger YES; WBC Urine >50 /HPF (0-5)
[2023-09-14 10:54] LABS: Influenza A PCR NEGATIVE (Negative); Influenza B PCR NEGATIVE (Negative); Resp Syncy Virus RNA Qual PCR NEGATIVE (Negative); SARS COV2 PCR INHOUSE NEGATIVE (Negative)
--- NOTE | 2023-09-14 11:53 | ED_ITS ---
HPI - General Adult General Chief complaint: General Medical Stated complaint: flank pain 4xdays Time Seen by Provider: 09/14/23 09:28 Source: patient Mode of arrival: ambulatory Limitations: language barrier History of Present Illness HPI narrative: History with psychiatric nurse practitioner, left flank and abdominal pain for 4 days. No vomiting, no dysuria, no diarrhea. Patient is concerned that she has a kidney stone. Onset (ago): day(s) Radiation: back Severity: mild Related Data Home Medications Medication Instructions Recorded Confirmed lidocaine 5 % topical patch 1 patch topical DAILY 08/11/22 09/01/23 canagliflozin 300 mg tablet 300 mg PO DAILY 08/07/23 09/01/23 (Invokana) insulin glargine 100 unit/mL (3 48 unit subcut BEDTIME 08/07/23 09/01/23 mL) subcutaneous pen (Lantus Solostar U-100 Insulin) insulin lispro 100 unit/mL 1 sliding scale dose subcut TIDAC 08/07/23 09/01/23 subcutaneous pen ketorolac 0.5 % eye drops 1 drp ophthalmic (eye) TID PRN 08/07/23 09/01/23 Allergy Symptoms Previous Rx's Medication Instructions Recorded atorvastatin 80 mg tablet 80 mg PO BEDTIME #90 tabs 03/22/23 cyclobenzaprine 10 mg tablet 10 mg PO DAILY PRN muscle spasm 03/22/23 #30 tabs omeprazole 20 mg capsule,delayed 20 mg PO BID@0630,1630 #180 caps 03/30/23 release flash glucose scanning reader #1 ea 06/05/23 (FreeStyle Guerda 2 [place]) acetaminophen 325 mg tablet 650 mg (2 x 325 mg) PO Q6H PRN 07/06/23 Pain #90 tabs docusate sodium 100 mg capsule 100 mg PO BID PRN Constipation #60 07/06/23 caps cetirizine 10 mg tablet (Zyrtec) 10 mg PO DAILY PRN allergy 07/12/23 symptoms #90 tabs duloxetine 30 mg capsule,delayed 30 mg PO DAILY #90 caps 07/20/23 release ezetimibe 10 mg tablet 10 mg PO DAILY #90 tabs 08/01/23 flash glucose sensor (FreeStyle #1 ea 08/10/23 Guerda 2 Sensor kit) aspirin 81 mg tablet,delayed 81 mg PO DAILY #90 tabs 08/25/23 release carvedilol 6.25 mg tablet 6.25 mg PO BID #60 tabs 08/25/23 sitagliptin phosphate 100 mg 100 mg PO DAILY #90 tabs 08/25/23 tablet (Januvia) meloxicam 15 mg tablet 15 mg PO DAILY PRN Pain #30 tabs 08/30/23 furosemide 20 mg tablet 20 mg PO DAILY 90 days #90 tabs 09/01/23 lisinopril 40 mg tablet 40 mg PO DAILY #90 tabs 09/01/23 amitriptyline 10 mg tablet 40 mg (4 x 10 mg) PO DAILY 90 days 09/05/23 #360 tabs hydrochlorothiazide 12.5 mg tablet 12.5 mg PO DAILY 90 days #90 tabs 09/12/23 levetiracetam 1,000 mg tablet 2,000 mg (2 x 1,000 mg) PO BID 30 09/12/23 days #120 tabs lactulose 20 gram/30 mL oral 20 g (30 mL) PO BID #1,200 mL 09/14/23 solution psyllium husk 3.4 gram/5.4 gram 1 tbsp PO DAILY #660 grams 09/14/23 oral powder (Metamucil) Allergies Allergy/AdvReac Type Severity Reaction Status Date / Time No Known Allergies Allergy Verified 09/14/23 07:00 Review of Systems 2 Review of Systems: Yes all other systems are reviewed and are negative Neurologic: Denies Sensory deficit (Neuro) PMFSH Past Medical History Medical History Encounter to establish care Diabetic retinopathy Type 2 diabetes mellitus with hyperglycemia, with long-term current use of insulin Essential hypertension Hyperlipidemia LDL goal <100 Gastroparesis Hyperlipidemia Depression Asthma Epilepsy Diabetes Hypertension Surgical History Hx of colonoscopy (~06/2018) H/O esophagogastroduodenoscopy (03/14/18) History of ankle surgery H/O section Family History Family History Mother Diabetes Father Diabetes Social History Social History Household Members: Spouse, Children and Caregiver Housing: Apartment Do you presently have visiting nurse or other home services: Yes ([facility] Visiting nurse. [phone], can call in regrads to patients care.) Alcohol intake: never Patient Tobacco Use Status: Never used Tobacco Smoked in Last 30 Days: No e-Cigarette/Vaping Use: Never Used Second Hand Smoke Exposure: No Use of substances other than those prescribed or required for medical reasons: No Advance Directives: No service: No Current occupational status: unemployed Cognitive needs: Yes (cane/walker) Hearing needs: No Vision needs: Yes (glasses) Physical Exam ED Vital Signs: Vital Signs - 24 hr 09/14/23 06:54 09/14/23 10:11 Temperature 98.9 F Pulse Rate 92 90 Respiratory Rate 18 16 Blood Pressure 173/87 H 166/92 H Pulse Oximetry 98 95 Oxygen Delivery Method Room Air Room Air BMI result Body Mass Index 30.9 Const Other: obese female looking older than stated age Nutritional Appearance: obese Orientation/consciousness: oriented to person and patient oriented x3 Limitations: no limitations HENMT Head: Yes normal to inspection Ears: external ears normal General nose exam: Normal external nose present Mouth: Normal oral and palatal mucosa present and oropharynx normal Throat: Yes posterior oropharynx normal Eyes General: appearance normal, both eyes and all related structures Neck Neck: Yes normal visual inspection Chest Chest palpation & inspection: normal inspection of the chest Resp Auscultation: clear to auscultation bilaterally Cardio Jugular venous distension: no JVD Rate: regular rate Rhythm: regular rhythm Heart sounds: S1 normal heart sound present and S2 normal heart sound present GI Other: soft nontender Inspection: Yes normal to inspection Palpation (GI): Soft to palpation, nontender and No hepatosplenomegaly present Auscultation: normal bowel sounds Other: very mild left CVAT Skin General skin exam: no rashes or lesions noted Neuro General: oriented to person and patient oriented x3 Cranial nerves: Yes CN's II-XII intact bilaterally Motor exam (neuro): 5/5 motor strength present throughout Sensory Exam: No Sensory deficit (Neuro) Extrem General: Yes normal to inspection Psych Appearance: grossly normal Course Reevaluation(s) Reevaluation #1: no evidence of infection or UTI, no stones on CT. Patient with a lot of stool will start lactulose and then add metamucil once the patient is cleaned out Time: 11:56 Medical Decision Making Differential Diagnosis Differential Diagnoses: The differential diagnosis associated with the presentation includes (UTI, pyelonephritis, renal colic, diverticulitis were all considered) Admission/Observation Consideration of admission/observation: Escalation of care including admission/observation considered (upon arrival patient was considered for admission) Lab Data MDM Lab Attestation statement: I reviewed the patient's lab results. (The patient last Ucx was contaminant. There is a lot of epithelial cells so likely contaminant will not treat at this time) 09/14/23 07:15 09/14/23 07:15 Labs: Lab Results 09/14/23 09/14/23 Range/Units 07:15 10:07 WBC 6.6 (4.8-10.8) X10*3/uL RBC 4.04 L (4.20-5.50) X10*6/uL Hgb 11.8 L (12.0-16.0) g/dl Hct 35.3 L (37.0-47.0) % MCV 87.4 (80.0-98.0) fL MCH 29.2 (27.0-33.0) pg MCHC 33.4 (31.0-35.0) g/dl RDW 12.2 (11.0-16.0) % Plt Count 261 (160-400) X10*3/uL MPV 9.0 L (9.4-12.3) fL Immature Gran % (Auto) 0.2 (0.0-0.4) % Neut % (Auto) 60.3 (45-73) % Lymph % (Auto) 29.9 (20-40) % Cooper % (Auto) 4.4 (2-11) % Eos % (Auto) 4.7 H (0-4) % Baso % (Auto) 0.5 (0-2) % Lymph # (Auto) 2.0 (1.2-4.9) X10*3/uL Cooper # (Auto) 0.3 (0.1-1.2) X10*3/uL Eos # (Auto) 0.3 (0.0-0.4) X10*3/uL Baso # (Auto) 0.0 (0.0-0.2) X10*3/uL Abs Immat Gran (auto) 0.01 (0.00-0.03) X10*3/uL Absolute Neuts (auto) 4.0 (2.0-8.3) x10*3/uL Absolute Nucleated RBC 0.000 (0.0-0.012) X10*3/uL Nucleated RBC % (auto) 0.0 (0.0-0.2) /100WBC Sodium 143 (135-145) mmol/L Potassium 3.8 (3.3-5.1) mmol/L Chloride 106 (96-108) mmol/L Carbon Dioxide 31 H (22-29) mmol/L Anion Gap 10 L (12-20) BUN 15 (9-16) mg/dL Creatinine 0.78 (0.5-1.4) mg/dL Estim Creat Clear Calc 82.2 Estimated GFR > 60 Random Glucose 137 H (60-115) mg/dL Calcium 9.4 (8.4-10.2) mg/dL Urine Color Yellow Urine Appearance Turbid Urine pH 5.5 (5.0-9.0) Ur Specific [place] 1.015 (1.005-1.025) Urine Protein 100 (2+) H (Neg-Trace) mg/dL Urine Glucose (UA) 250 H (Negative) mg/dL Urine Ketones Negative (Negative) mg/dL Urine Blood Trace H (Negative) Urine Nitrite Negative (Negative) Ur Leukocyte Esterase Large (3+) H (Negative) Urine RBC 0-2 (0-2) /HPF Urine WBC >50 H (0-5) /HPF Ur Squamous Epith Cells >20 (0-2) /HPF Urine Bacteria 4+ (None Seen) Hyaline Casts 0-2 (0-2) /LPF Influenza Type A (PCR) NEGATIVE (Negative) Influenza Type B (PCR) NEGATIVE (Negative) RSV RNA Qual (PCR) NEGATIVE (Negative) SARS-CoV-2 RNA (RT-PCR) NEGATIVE (Negative) Independent Interpretation I performed an independent interpretation of an: CT Scan (no stones, no diverticulitis) Radiology Impression Discussion of test interpretation with radiology: I have reviewed the radiologist's reading. Prescription Management I considered prescription management with: Antibiotic (I considered abx for UTI but the urine looks very contaminated) Chronic Conditions Patient?s care impacted by: Diabetes Discharge Plan Discharge Clinical Impression: Constipation Patient Disposition: Home, Self-Care Instructions: Constipation (ED) Additional Instructions: take lactulose until stools are liquid then start metamucil Prescriptions: New lactulose 20 gram/30 mL solution 20 g PO BID Qty: 1200 0RF Metamucil 3.4 gram/5.4 gram powder 1 tbsp PO DAILY Qty: 660 0RF Rx Instructions: mix into at least 8 oz of water or juice before administering No Action cyclobenzaprine 10 mg tablet 10 mg PO DAILY PRN (Reason: muscle spasm) Qty: 30 1RF atorvastatin 80 mg tablet 80 mg PO BEDTIME Qty: 90 1RF omeprazole 20 mg capsule,delayed release(DR/EC) 20 mg PO BID@0630,1630 Qty: 180 3RF (DME) FreeStyle Guerda 2 [place] Misc See Rx Instructions .Route Qty: 1 0RF Rx Instructions: As directed docusate sodium 100 mg capsule 100 mg PO BID PRN (Reason: Constipation) Qty: 60 3RF acetaminophen 325 mg tablet 650 mg PO Q6H PRN (Reason: Pain) Qty: 90 0RF cetirizine [Zyrtec] 10 mg tablet 10 mg PO DAILY PRN (Reason: allergy symptoms) Qty: 90 0RF duloxetine 30 mg capsule,delayed release(DR/EC) 30 mg PO DAILY Qty: 90 0RF ezetimibe 10 mg tablet 10 mg PO DAILY Qty: 90 1RF (DME) FreeStyle Guerda 2 Sensor Kit See Rx Instructions .Route Qty: 1 3RF Rx Instructions: As directed Januvia 100 mg tablet 100 mg PO DAILY Qty: 90 0RF carvedilol 6.25 mg tablet 6.25 mg PO BID Qty: 60 0RF Rx Instructions: must administer with a meal/food aspirin 81 mg tablet,delayed release (DR/EC) 81 mg PO DAILY Qty: 90 0RF meloxicam 15 mg tablet 15 mg PO DAILY PRN (Reason: Pain) Qty: 30 0RF amitriptyline 10 mg tablet 40 mg PO DAILY 90 Days Qty: 360 0RF hydrochlorothiazide 12.5 mg tablet 12.5 mg PO DAILY 90 Days Qty: 90 1RF levetiracetam 1,000 mg tablet 2,000 mg PO BID 30 Days Qty: 120 0RF lidocaine 5 % Adhesive Patch,Medicated 1 patch TOPICAL DAILY Rx Instructions: leave on most painful area for up to 12 hrs ketorolac 0.5 % drops 1 drp ophthalmic (eye) TID PRN (Reason: Allergy Symptoms) insulin lispro 100 unit/mL insulin pen 1 sliding scale dose subcut TIDAC Rx Instructions: 5 units if BG <250, 10 units if Bg > 250 Invokana 300 mg tablet 300 mg PO DAILY insulin glargine [Lantus Solostar U-100 Insulin] 100 unit/mL (3 mL) insulin pen 48 unit subcut BEDTIME furosemide 20 mg tablet 20 mg PO DAILY 90 Days Qty: 90 1RF Protocol: Hold for SBP< HOLD for SBP < : 90 lisinopril 40 mg tablet 40 mg PO DAILY Qty: 90 1RF Referrals: Erica Rivera FNP [Primary Care Provider] -
[2023-09-14] MEDS: Lactulose 20 GM/30 ML SOLUTION PO (12:47)
[2023-09-14 12:58] VITALS: BP 175/94; PULSE 93; RESP 16; O2SAT 96
== END 2023-09-14 12:59 | disposition home or self-care (01) ==
PROVIDERS: Physician Assistant Medical; Emergency Provider Emergency Medicine; PCP Nurse Practitioner Family
DX: K59.00 Constipation, unspecified (principal); I10 Essential (primary) hypertension; E11.9 Type 2 diabetes mellitus without complications; Z79.4 Long term (current) use of insulin; Z11.52 Encounter for screening for COVID-19; Z20.828 Contact with and (suspected) exposure to other viral communicable diseases
CPT/HCPCS: 0241U; 36415; 74176; 80048; 81001; 85025; 87086; 99284

== ENCOUNTER 2023-09-21 16:28 | Emergency (ER) | payer OTHER, SELFPAY | END 2023-09-21 19:33 | disposition left against medical advice (07) | LOC: HO.ED 19:33 | PROVIDERS: Emergency Provider Emergency Medicine; PCP Nurse Practitioner Family | DX: R10.32 Left lower quadrant pain (principal) ==

== ENCOUNTER 2023-09-22 08:26 | Emergency (ER) | payer OTHER, SELFPAY ==
[2023-09-22] VITALS (7 sets, daily range): BP systolic 172–198; BP diastolic 86–112; PULSE 93–102; RESP 14–18; TEMP 36.3–36.8; O2SAT 92–99; BMI 30.2
--- NOTE | ~2023-09-22 | XR_ITS ---
EXAMINATION: XR ABDOMEN KUB CLINICAL INDICATION: Constipation COMPARISON: None available. TECHNIQUE: AP view of the abdomen. FINDINGS: There is no dilatation of large or small bowel. There is a large amount of stool within the ascending transverse and descending colon consistent with constipation. No unusual soft tissue calcifications are noted. There is degenerative disc disease in lower lumbar spine. XR/XR KUB IMPRESSION: Findings consistent with constipation.
--- NOTE | 2023-09-22 09:45 | ED_ITS ---
HPI - Back Pain/Injury General Chief Complaint: Back Pain/Injury Stated Complaint: Back pain Time Seen by Provider: 09/22/23 09:39 Source: patient and staff interpreter (Bur[place]ian) Mode of arrival: ambulatory Limitations: no limitations History of Present Illness HPI Narrative: 58 year old female with pmhx significant for T2DM, gastroparesis, HTN, HDL, asthma, depression presents to the ED today for evaluation of left flank pain x1 week. Pain is isolated to the left flank and does not radiate. She has been taking Tylenol at home without relief of symptoms. Her last dose was yesterday. She admits that she was seen here a week ago for same. She was discharged home with lactulose and Metamucil for constipation which was identified on CT scan. Workup was otherwise unremarkable. States she has been taking these medications at home and denies felling constipated. Denies fever, chills, nausea, vomiting, abdominal pain, diarrhea, constipation, dysuria, hematuria. historical interpreter utilized during visit to communicate with patient. Related Data Home Medications Medication Instructions Recorded Confirmed lidocaine 5 % topical patch 1 patch topical DAILY 08/11/22 09/01/23 canagliflozin 300 mg tablet 300 mg PO DAILY 08/07/23 09/01/23 (Invokana) insulin glargine 100 unit/mL (3 48 unit subcut BEDTIME 08/07/23 09/01/23 mL) subcutaneous pen (Lantus Solostar U-100 Insulin) insulin lispro 100 unit/mL 1 sliding scale dose subcut TIDAC 08/07/23 09/01/23 subcutaneous pen ketorolac 0.5 % eye drops 1 drp ophthalmic (eye) TID PRN 08/07/23 09/01/23 Allergy Symptoms Previous Rx's Medication Instructions Recorded atorvastatin 80 mg tablet 80 mg PO BEDTIME #90 tabs 03/22/23 cyclobenzaprine 10 mg tablet 10 mg PO DAILY PRN muscle spasm 03/22/23 #30 tabs omeprazole 20 mg capsule,delayed 20 mg PO BID@0630,1630 #180 caps 03/30/23 release flash glucose scanning reader #1 ea 06/05/23 ([employer] Guerda 2 Boone) acetaminophen 325 mg tablet 650 mg (2 x 325 mg) PO Q6H PRN 07/06/23 Pain #90 tabs docusate sodium 100 mg capsule 100 mg PO BID PRN Constipation #60 07/06/23 caps cetirizine 10 mg tablet (Zyrtec) 10 mg PO DAILY PRN allergy 07/12/23 symptoms #90 tabs duloxetine 30 mg capsule,delayed 30 mg PO DAILY #90 caps 07/20/23 release ezetimibe 10 mg tablet 10 mg PO DAILY #90 tabs 08/01/23 flash glucose sensor (FreeStyle #1 ea 08/10/23 Guerda 2 Sensor kit) aspirin 81 mg tablet,delayed 81 mg PO DAILY #90 tabs 08/25/23 release carvedilol 6.25 mg tablet 6.25 mg PO BID #60 tabs 08/25/23 sitagliptin phosphate 100 mg 100 mg PO DAILY #90 tabs 08/25/23 tablet (Januvia) meloxicam 15 mg tablet 15 mg PO DAILY PRN Pain #30 tabs 08/30/23 furosemide 20 mg tablet 20 mg PO DAILY 90 days #90 tabs 09/01/23 lisinopril 40 mg tablet 40 mg PO DAILY #90 tabs 09/01/23 amitriptyline 10 mg tablet 40 mg (4 x 10 mg) PO DAILY 90 days 09/05/23 #360 tabs hydrochlorothiazide 12.5 mg tablet 12.5 mg PO DAILY 90 days #90 tabs 09/12/23 lactulose 20 gram/30 mL oral 20 g (30 mL) PO BID #1,200 mL 09/14/23 solution psyllium husk 3.4 gram/5.4 gram 1 tbsp PO DAILY #660 grams 09/14/23 oral powder (Metamucil) levetiracetam 1,000 mg tablet 2,000 mg (2 x 1,000 mg) PO BID 30 09/15/23 days #120 tabs Allergies Allergy/AdvReac Type Severity Reaction Status Date / Time No Known Allergies Allergy Verified 09/21/23 19:04 Review of Systems 2 Review of Systems: Constitutional: No fever, chills, fatigue, night sweats, weight changes ENT/Mouth: No ear pain, hearing loss, nasal congestion, sinus pain, rhinorrhea, sore throat Eyes: No eye pain, swelling, redness, vision changes, discharge Cardio: No chest pain, palpitations, ENRIQUEZ, orthopnea, peripheral edema Pulm: No SOB, cough, sputum, wheezing, dyspnea, hemoptysis GI: No nausea, vomiting, hematemesis, abdominal pain, diarrhea, constipation, hematochezia, melena : No irregular bleeding, dysuria, frequency, urgency, hesitancy, hematuria, flank pain, urinary flow changes, urinary incontinence or retention, + left flank pain MSK: No back pain, neck pain, joint pain, myalgias Skin: No lesions, rashes Neuro: No weakness, numbness, paresthesias, LOC, dizziness, headache Psych: No anxiety/panic, depression, SI/HI, AH/VH All other systems reviewed and are negative. [facility] Past Medical History Attestation statement: The following information was validated with the patient. Source: old records reviewed and nursing notes reviewed Medical History Encounter to establish care Diabetic retinopathy Type 2 diabetes mellitus with hyperglycemia, with long-term current use of insulin Essential hypertension Hyperlipidemia LDL goal <100 Gastroparesis Hyperlipidemia Depression Asthma Epilepsy Diabetes Hypertension Surgical History Hx of colonoscopy (~06/2018) H/O esophagogastroduodenoscopy (03/14/18) History of ankle surgery H/O section Family History Family History Mother Diabetes Father Diabetes Social History Social History Household Members: Spouse, Children and Caregiver Housing: Apartment Do you presently have visiting nurse or other home services: Yes ([facility] Visiting nurse. [phone], can call in regrads to patients care.) Alcohol intake: never Patient Tobacco Use Status: Never used Tobacco Smoked in Last 30 Days: No e-Cigarette/Vaping Use: Never Used Second Hand Smoke Exposure: No Use of substances other than those prescribed or required for medical reasons: No Advance Directives: No Advance Directives Information Provided: Yes service: No Current occupational status: unemployed Cognitive needs: Yes (cane/walker) Hearing needs: No Vision needs: Yes (glasses) Physical Exam 2 Vital Signs: Vital Signs: Last Vital Signs Temp 98.0 F 09/22/23 17:32 Pulse 93 09/22/23 17:32 Resp 16 09/22/23 17:32 BP 187/86 H 09/22/23 17:32 Pulse Ox 97 09/22/23 17:32 O2 Del Method Room Air 09/22/23 17:32 BMI result Body Mass Index 30.2 Patient hypertensive, vitals otherwise WNL. Const: General: cooperative, comfortable and no acute distress O rientation/consciousness: patient oriented x3 Limitations: no limitations HEENT: Head: Yes normal to inspection, Yes normocephalic and Yes atraumatic Eyes: General: appearance normal, both eyes and all related structures Neck: Neck: Yes normal visual inspection, Yes full ROM and Yes no lymphadenopathy Resp: Effort & Inspection: normal respiratory effort Auscultation: clear to auscultation bilaterally Cardio: Rate: regular rate Rhythm: regular rhythm GI: Other: + abdomen soft, nondistended, nontender to palpation, no rebound tenderness or guarding. Normoactive bowel sounds x4. : Other: + left CVAT Back/Spine/Pelvis: Other: No midline spinous tenderness or step off deformity. No paraspinal muscle tenderness. Skin: General skin exam: no rashes or lesions noted Neuro: General: patient oriented x3 and gait normal Motor exam (neuro): 5/5 motor strength present throughout Extrem: General: Yes normal to inspection, Yes full ROM and Yes capillary refill normal Course Course Course Narrative: 1108-- on chart review, patient seen here 1 week ago for same symptoms. CT scan unremarkable however did show fecal retention with mild diverticulosis. No diverticulitis. Patient was discharged home with lactulose and Metamucil, which she states she has been taking. States she has been having normal bowel movements, last bowel movement yesterday. 1330-- CBC without leukocytosis. No anemia. H&H stable. Chemistry without acute electrolyte abnormality requiring intervention. BUN slightly elevated, appears to be around patient's baseline when compared to priors. Creatinine WNL. Low suspicion for obstructive uropathy. Glucose WNL at 1:08 a.m.. Lipase WNL > no concern for acute pancreatitis. Normal liver function. Urine showing trace blood and leukocyte esterase. There are no nitrites. 6-10 WBCs and 6-10 squamous epithelial cells with no bacteria seen. Likely contamination. I do not have concern for urinary tract infection at this time. > patient reports pain improvement with IV morphine. > KUB shows large amount of stool within the ascending transverse and descending colon consistent with constipation, consistent with CT scan obtained 1 week ago. I do not feel as a repeat CT scan is necessary. Discussed findings with patient. She continues to tell me that she has been having normal bowel movements and does not believe that she is constipated. As there is no rectal stool burden, I do not feel as though rectal disimpaction would be helpful. Will order enema and re-evaluate. 1637-- patient is stable at the end of my shift. Sign-out given to my colleague, No OREILLY pending enema and disposition. Reevaluation(s) Reevaluation #1: Patient was given to me pending enema and disposition. Different patient refusing enema as this caused her to have bowel incontinence on her walk home. Patient states that she had a bowel movement approximately 1/2 hour ago and is feeling much better and is requesting discharge. Blood pressure remains to be elevated. Upon further questioning she states that she did not take any of her at home medications this morning. Blood pressure now is 187/86. I discussed with visiting nurse of her medications, she takes lisinopril 40 mg by mouth in the morning. Patient reports that she did not take any of her medications. And medicated her with lisinopril 40 mg by mouth prior to her departure. Patient also has follow-up with GI in October per the visiting nurse. I discussed adding docusate to her bowel regimen. They have this at home. Given return precautions. She understands and agrees with plan. She has no chest pain, shortness of breath, headaches, dizziness. She is stable for discharge. Time: 18:09 Medications Administered Discontinued Medications Generic Name Dose Route Start Last Admin Trade Name Freq PRN Reason Stop Dose Admin Sodium Chloride 1,000 mls @ 999 mls/hr 09/22/23 10:00 09/22/23 12:20 Ns IV 09/22/23 11:00 Infused .Q1H1M AMINTA Infusion Lactulose 200 gm 09/22/23 15:16 09/22/23 17:14 Lactulose 320 Gm/480 Ml Solution SD 09/22/23 15:17 Not Given ONCE ONE Lisinopril 40 mg 09/22/23 18:06 09/22/23 18:12 Lisinopril 40 Mg Tablet PO 09/22/23 18:07 40 mg ONCE ONE Administration Protocol Morphine Sulfate 2 mg 09/22/23 09:50 09/22/23 10:05 Morphine Sulfate 2 Mg/Ml Cartridge IVPUSH 09/22/23 09:51 2 mg ONCE ONE Administration Protocol Medical Decision Making Medical Decision Making [facility] Narrative: 58 year old female with pmhx significant for T2DM, gastroparesis, HTN, HDL, asthma, depression presents to the ED today for evaluation of left flank pain x1 week. Patient initially hypertensive to 198/112, now 175/96. When compared to priors, this appears to be around patient's baseline. She tells me that her PCP is aware of her recent elevated BP and increased the dosage of her blood pressure medications last week. She is following up with them this month. She denies chest pain, vision changes, palpitations, dizziness, headache. Vitals otherwise WNL. She is nontoxic-appearing and in no acute distress. Abdomen soft, nondistended, nontender, no rebound tenderness or guarding. Normoactive bowel sounds x4. There is positive left CVAT. No midline spinous tenderness or step- off deformity. No rashes. Mucous membranes moist. Differential diagnosis includes constipation, UTI, renal colic, nephrolithiasis, MSK sprain/strain. Low suspicion for gastroparesis, DKA, fracture, subluxation, acute abdomen. Plan for labs, pain control, UA, re-evaluation Differential Diagnosis Differential Diagnoses: The differential diagnosis associated with the presentation includes As above Admission/Observation not indicated Lab Data [facility] Lab Attestation statement: I reviewed the patient's lab results. As above 09/22/23 10:04 09/22/23 11:27 Labs: Lab Results 09/22/23 09/22/23 Range/Units 10:04 11:27 WBC 7.4 (4.8-10.8) X10*3/uL RBC 4.44 (4.20-5.50) X10*6/uL Hgb 12.9 (12.0-16.0) g/dl Hct 38.7 (37.0-47.0) % MCV 87.2 (80.0-98.0) fL MCH 29.1 (27.0-33.0) pg MCHC 33.3 (31.0-35.0) g/dl RDW 12.7 (11.0-16.0) % Plt Count 273 (160-400) X10*3/uL MPV 9.2 L (9.4-12.3) fL Immature Gran % (Auto) 0.4 (0.0-0.4) % Neut % (Auto) 64.8 (45-73) % Lymph % (Auto) 25.2 (20-40) % Mcminn % (Auto) 5.7 (2-11) % Eos % (Auto) 3.2 (0-4) % Baso % (Auto) 0.7 (0-2) % Lymph # (Auto) 1.9 (1.2-4.9) X10*3/uL Mcminn # (Auto) 0.4 (0.1-1.2) X10*3/uL Eos # (Auto) 0.2 (0.0-0.4) X10*3/uL Baso # (Auto) 0.1 (0.0-0.2) X10*3/uL Abs Immat Gran (auto) 0.03 (0.00-0.03) X10*3/uL Absolute Neuts (auto) 4.8 (2.0-8.3) x10*3/uL Absolute Nucleated RBC 0.000 (0.0-0.012) X10*3/uL Nucleated RBC % (auto) 0.0 (0.0-0.2) /100WBC Sodium 144 (135-145) mmol/L Potassium 4.5 (3.3-5.1) mmol/L Chloride 109 H (96-108) mmol/L Carbon Dioxide 28 (22-29) mmol/L Anion Gap 12 (12-20) BUN 18 H (9-16) mg/dL Creatinine 0.68 (0.5-1.4) mg/dL Estim Creat Clear Calc 93.2 Estimated GFR > 60 Random Glucose 108 (60-115) mg/dL Calcium 9.1 (8.4-10.2) mg/dL Magnesium 2.0 (1.6-2.6) mg/dL Total Bilirubin 0.6 (0.0-1.0) mg/dL AST 15 (5-31) U/L ALT 14 (0-31) U/L Alkaline Phosphatase 116 (39-117) U/L Total Protein 6.4 L (6.5-8.0) g/dL Albumin 3.2 L (3.5-5.0) g/dL Lipase 14 (8-78) U/L Urine Color Yellow Urine Appearance Clear Urine pH 6.0 (5.0-9.0) Ur Specific [place] 1.010 (1.005-1.025) Urine Protein 100 (2+) H (Neg-Trace) mg/dL Urine Glucose (UA) 250 H (Negative) mg/dL Urine Ketones Negative (Negative) mg/dL Urine Blood Trace H (Negative) Urine Nitrite Negative (Negative) Ur Leukocyte Esterase Trace H (Negative) Urine RBC 0-2 (0-2) /HPF Urine WBC 6-10 H (0-5) /HPF Ur Squamous Epith Cells 6-10 (0-2) /HPF Urine Bacteria None Seen (None Seen) Hyaline Casts 0-2 (0-2) /LPF Independent Interpretation I performed an independent interpretation of an: Plain X-Ray Interpretation: I have personally reviewed KUB x-ray and agree with radiologist's interpretation. Radiology Impression Discussion of test interpretation with radiology: I have reviewed the radiologist's reading. Radiologist Impression: XR KUB IMPRESSION: Findings consistent with constipation. External Record Review External record reviewed: Inpatient record, Office record, Outpatient record, Prior outpatient labs, Prior outpatient radiology, Primary care record and Outside ED record Tests considered The following testing was considered but not selected: I considered obtaining CT abd/pelvis, however this was obtained last week, showing constipation. There were no other notable findings pertaining to symptoms. As symptoms have not worsened or changed, I do not feel as though repeat ct scan is necessary. KUB obtained to assess degree of constipation following home treatment. Prescription Management I considered prescription management with: Pain Medication and Other (Laxative, stool softener) Chronic Conditions Patient?s care impacted by: Diabetes, Hypertension and Other (Chronic constipation) Social Determinants Patient?s care significantly limited by Social Determinants of Health including: Other Social Determinant of Health Critical Care Time Critical Care Time Critical Care Time: Yes Total Critical Care Time: 45 Attestation: Critical care time in the amount of 45 minutes has been provided to the patient in terms of direct patient care, frequent reevaluation on IV morphine, review and interpretation of medical data and results, and management of potentially life-threatening conditions. This is all outside of any medical procedures. Discharge Plan Discharge Clinical Impression: Constipation, Left flank pain Patient Disposition: Still a Patient Instructions: High Fiber Diet (ED), Flank Pain (ED) Additional Instructions: Your labs today are reassuring. Your blood pressure was elevated, it is very important that you always take your medications as directed. Please be advised that we did give you a dose of lisinopril 40 mg by mouth prior to your departure today. The x-ray of her abdomen shows constipation. You were given an enema in the ED today. Please ensure that you are continuing lactulose and Metamucil at home to increase bowel movements. I am also recommending you take docusate 2 year bowel regimen. Follow up with PCP this week. Return with new or worsening symptoms. In the case of an emergency call 911. Prescriptions: No Action cyclobenzaprine 10 mg tablet 10 mg PO DAILY PRN (Reason: muscle spasm) Qty: 30 1RF atorvastatin 80 mg tablet 80 mg PO BEDTIME Qty: 90 1RF omeprazole 20 mg capsule,delayed release(DR/EC) 20 mg PO BID@0630,1630 Qty: 180 3RF (DME) FreeStyle Guerda 2 Boone Misc See Rx Instructions .Route Qty: 1 0RF Rx Instructions: As directed docusate sodium 100 mg capsule 100 mg PO BID PRN (Reason: Constipation) Qty: 60 3RF acetaminophen 325 mg tablet 650 mg PO Q6H PRN (Reason: Pain) Qty: 90 0RF cetirizine [Zyrtec] 10 mg tablet 10 mg PO DAILY PRN (Reason: allergy symptoms) Qty: 90 0RF duloxetine 30 mg capsule,delayed release(DR/EC) 30 mg PO DAILY Qty: 90 0RF ezetimibe 10 mg tablet 10 mg PO DAILY Qty: 90 1RF (DME) FreeStyle Guerda 2 Sensor Kit See Rx Instructions .Route Qty: 1 3RF Rx Instructions: As directed Januvia 100 mg tablet 100 mg PO DAILY Qty: 90 0RF carvedilol 6.25 mg tablet 6.25 mg PO BID Qty: 60 0RF Rx Instructions: must administer with a meal/food aspirin 81 mg tablet,delayed release (DR/EC) 81 mg PO DAILY Qty: 90 0RF meloxicam 15 mg tablet 15 mg PO DAILY PRN (Reason: Pain) Qty: 30 0RF amitriptyline 10 mg tablet 40 mg PO DAILY 90 Days Qty: 360 0RF hydrochlorothiazide 12.5 mg tablet 12.5 mg PO DAILY 90 Days Qty: 90 1RF levetiracetam 1,000 mg tablet 2,000 mg PO BID 30 Days Qty: 120 0RF lidocaine 5 % Adhesive Patch,Medicated 1 patch TOPICAL DAILY Rx Instructions: leave on most painful area for up to 12 hrs ketorolac 0.5 % drops 1 drp ophthalmic (eye) TID PRN (Reason: Allergy Symptoms) insulin lispro 100 unit/mL insulin pen 1 sliding scale dose subcut TIDAC Rx Instructions: 5 units if BG <250, 10 units if Bg > 250 Invokana 300 mg tablet 300 mg PO DAILY insulin glargine [Lantus Solostar U-100 Insulin] 100 unit/mL (3 mL) insulin pen 48 unit subcut BEDTIME lactulose 20 gram/30 mL solution 20 g PO BID Qty: 1200 0RF Metamucil 3.4 gram/5.4 gram powder 1 tbsp PO DAILY Qty: 660 0RF Rx Instructions: mix into at least 8 oz of water or juice before administering furosemide 20 mg tablet 20 mg PO DAILY 90 Days Qty: 90 1RF Protocol: Hold for SBP< HOLD for SBP < : 90 lisinopril 40 mg tablet 40 mg PO DAILY Qty: 90 1RF Referrals: Erica Rivera FNP [Primary Care Provider] - Discharge Date/Time: 09/22/23 18:23
[2023-09-22] MEDS: 0.9 % Sodium Chloride 1,000 ML 999 ML IV (09:57)
[2023-09-22] MEDS: Morphine Sulfate 2 MG/ML CARTRIDGE IVPUSH (10:05)
[2023-09-22 10:08] LABS: MANUAL DIFF FLAG NO
[2023-09-22 10:10] LABS: Basophils Absolute Auto 0.1 X10*3/uL (0.0-0.2); Basophils Percent Auto 0.7 % (0-2); Eosinophils Absolute Auto 0.2 X10*3/uL (0.0-0.4); Eosinophils Percent Auto 3.2 % (0-4); Hematocrit 38.7 % (37.0-47.0); Hemoglobin 12.9 g/dl (12.0-16.0); Imm Gran Abs Auto 0.03 X10*3/uL (0.00-0.03); Imm Gran Pct Auto 0.4 % (0.0-0.4); Lymphocytes Absolute Auto 1.9 X10*3/uL (1.2-4.9); Lymphocytes Percent Auto 25.2 % (20-40); Mean Corpuscular HGB Conc 33.3 g/dl (31.0-35.0); Mean Corpuscular Hemoglobin 29.1 pg (27.0-33.0); Mean Corpuscular Volume 87.2 fL (80.0-98.0); Mean Platelet Volume 9.2 fL (9.4-12.3); Monocytes Absolute Auto 0.4 X10*3/uL (0.1-1.2); Monocytes Percent Auto 5.7 % (2-11); Neutrophils Absolute Auto 4.8 x10*3/uL (2.0-8.3); Neutrophils Percent Auto 64.8 % (45-73); Platelet Count 273 X10*3/uL (160-400); Red Blood Count 4.44 X10*6/uL (4.20-5.50); Red Cell Distribution Width 12.7 % (11.0-16.0); White Blood Count 7.4 X10*3/uL (4.8-10.8)
[2023-09-22 11:36] LABS: Appearance Urine Clear; Color Urine Yellow; Glucose Urine UA 250 mg/dL (Negative); Leukocyte Esterase Urine Trace (Negative); Nitrite Urine Negative (Negative); UMIC TRIGGER UACC YES; Urine Blood Trace (Negative); Urine Ketones Negative (Negative); Urine Protein 100 (2+) mg/dL (Neg-Trace)
[2023-09-22 11:43] LABS: Bacteria Urine None Seen (None Seen); Hyaline Casts Urine 0-2 /LPF (0-2); RBC Urine 0-2 /HPF (0-2); UACC Culture Trigger YES
[2023-09-22 11:53] LABS: Alanine Aminotransferase 14 U/L (0-31); Albumin Level 3.2 g/dL (3.5-5.0); Alkaline Phosphatase 116 U/L (39-117); Anion Gap 12 (12-20); Aspartate Amino Transferase 15 U/L (5-31); Bilirubin Total 0.6 mg/dL (0.0-1.0); Blood Urea Nitrogen 18 mg/dL (9-16); Calcium 9.1 mg/dL (8.4-10.2); Carbon Dioxide 28 mmol/L (22-29); Chloride 109 mmol/L (96-108); Creatinine Clr Calc Pharmacy 93.2; Estimated Glomerular Filt Rate > 60; Glucose Random 108 mg/dL (60-115); Lipase 14 U/L (8-78); Potassium 4.5 mmol/L (3.3-5.1); Sodium 144 mmol/L (135-145); Total Protein 6.4 g/dL (6.5-8.0)
--- NOTE | 2023-09-22 16:00 | PC.NURSE ---
still waiting for pharmacy to bring the lactulose
--- NOTE | 2023-09-22 17:18 | PC.NURSE ---
Patient refusing enema at this time, states has normal sized bowel movement 15 mins ago and would like to go home. Patient states she is due to take her blood pressure meds at home. will report to provider
[2023-09-22] MEDS: lisinopriL 40 MG TABLET PO (18:12)
== END 2023-09-22 18:23 | disposition still patient (30) ==
PROVIDERS: Physician Assistant Medical; Emergency Provider Emergency Medicine; PCP Nurse Practitioner Family
DX: K59.00 Constipation, unspecified (principal); M54.50 Low back pain, unspecified; R10.9 Unspecified abdominal pain; E11.9 Type 2 diabetes mellitus without complications; Z79.4 Long term (current) use of insulin; Z79.899 Other long term (current) drug therapy
CPT/HCPCS: 36415; 74018; 80053; 81001; 83690; 83735; 85025; 87086; 96361; 96374; 99284; J2270

== ENCOUNTER 2023-11-01 20:03 | Emergency (ER) | payer OTHER, SELFPAY ==
--- NOTE | 2023-11-01 | ECG_ITS ---
Test Reason : CHEST PAIN Blood Pressure : / mmHG Vent. Rate : 099 BPM Atrial Rate : 099 BPM P-R Int : 168 ms QRS Dur : 086 ms QT Int : 354 ms P-R-T Axes : 036 006 049 degrees QTc Int : 454 ms Normal sinus rhythm Normal ECG When compared with ECG of 07-AUG-2023 00:43, No significant change was found Referred By: Generic ED Physician Electronically Signed By:CAMILO RUEDA MD
[2023-11-01 20:10] VITALS: BP 182/98; BP 201/99; PULSE 100; PULSE 104; RESP 18; TEMP 36.9; O2SAT 92; O2SAT 94; BMI 32.5
[2023-11-01 20:22] LABS: Glucose, Whole Blood 202 mg/dL (60-115)
[2023-11-01 20:26] LABS: MANUAL DIFF FLAG NO
--- NOTE | 2023-11-01 20:27 | PC.NURSE ---
Dr. lemon aware. ekg obtained. labs drawn. pt placed on heart monitor 98 nsr.
[2023-11-01 20:28] LABS: Basophils Absolute Auto 0.1 X10*3/uL (0.0-0.2); Basophils Percent Auto 0.6 % (0-2); Eosinophils Absolute Auto 0.3 X10*3/uL (0.0-0.4); Eosinophils Percent Auto 3.6 % (0-4); Hematocrit 32.1 % (37.0-47.0); Hemoglobin 10.6 g/dl (12.0-16.0); Imm Gran Abs Auto 0.01 X10*3/uL (0.00-0.03); Imm Gran Pct Auto 0.1 % (0.0-0.4); Lymphocytes Absolute Auto 2.2 X10*3/uL (1.2-4.9); Lymphocytes Percent Auto 28.3 % (20-40); Mean Corpuscular Hemoglobin 28.9 pg (27.0-33.0); Mean Corpuscular Volume 87.5 fL (80.0-98.0); Mean Platelet Volume 9.6 fL (9.4-12.3); Monocytes Absolute Auto 0.4 X10*3/uL (0.1-1.2); Neutrophils Absolute Auto 4.9 x10*3/uL (2.0-8.3); Neutrophils Percent Auto 62.4 % (45-73); Platelet Count 282 X10*3/uL (160-400); Red Blood Count 3.67 X10*6/uL (4.20-5.50); Red Cell Distribution Width 12.9 % (11.0-16.0); White Blood Count 7.8 X10*3/uL (4.8-10.8)
[2023-11-01 20:30] VITALS: PULSE 96
--- NOTE | 2023-11-01 20:30 | ED.CHESTPAIN ---
HPI - Chest Pain General Chief Complaint: Chest Pain Stated Complaint: cp/syncope; hx mi x2 Time Seen by Provider: 11/01/23 20:29 Source: patient Mode of arrival: EMS Limitations: no limitations History of Present Illness HPI narrative: Patient 58 years old with history of epilepsy, hypertension, hyperlipidemia, diabetes with history of CHF echo done on 08/08 showed mildly decreased like infection to 45-50 % had myocardial perfusion test on 08/09 which was negative for ischemia was seen here on 09/22/2023 for constipation. Patient's mother charge felt dizziness with vertiginous feeling almost fell held by other people at denominational. Complaining of left-sided chest pain POC was 202 patient received aspirin 324 mg by EMS blood pressure on arrival was 201/99 Related Data Home Medications ?Medication ?Instructions ?Recorded ?Confirmed lidocaine 5 % topical patch 1 patch topical DAILY 08/11/22 09/01/23 canagliflozin 300 mg tablet 300 mg PO DAILY 08/07/23 09/01/23 (Invokana) insulin glargine 100 unit/mL (3 48 unit subcut BEDTIME 08/07/23 09/01/23 mL) subcutaneous pen (Lantus Solostar U-100 Insulin) ketorolac 0.5 % eye drops 1 drp ophthalmic (eye) TID PRN 08/07/23 09/01/23 Allergy Symptoms Previous Rx's ?Medication ?Instructions ?Recorded omeprazole 20 mg capsule,delayed 20 mg PO BID@0630,1630 #180 caps 03/30/23 release flash glucose scanning reader #1 ea 06/05/23 (FreeStyle Guerda 2 Scott) acetaminophen 325 mg tablet 650 mg (2 x 325 mg) PO Q6H PRN 07/06/23 Pain #90 tabs ezetimibe 10 mg tablet 10 mg PO DAILY #90 tabs 08/01/23 aspirin 81 mg tablet,delayed 81 mg PO DAILY #90 tabs 08/25/23 release sitagliptin phosphate 100 mg 100 mg PO DAILY #90 tabs 08/25/23 tablet (Januvia) furosemide 20 mg tablet 20 mg PO DAILY 90 days #90 tabs 09/01/23 lisinopril 40 mg tablet 40 mg PO DAILY #90 tabs 09/01/23 amitriptyline 10 mg tablet 40 mg (4 x 10 mg) PO DAILY 90 days 02/26/24 #360 tabs hydrochlorothiazide 12.5 mg tablet 12.5 mg PO DAILY 90 days #90 tabs 09/12/23 lactulose 20 gram/30 mL oral 20 g (30 mL) PO BID #1,200 mL 09/14/23 solution psyllium husk 3.4 gram/5.4 gram 1 tbsp PO DAILY #660 grams 09/14/23 oral powder (Metamucil) levetiracetam 1,000 mg tablet 2,000 mg (2 x 1,000 mg) PO BID 30 09/15/23 days #120 tabs flash glucose sensor (FreeStyle #1 ea 09/27/23 Guerda 2 Sensor kit) amlodipine 5 mg tablet 5 mg PO DAILY 90 days #90 tabs 10/03/23 carvedilol 6.25 mg tablet 6.25 mg PO BID #60 tabs 10/03/23 atorvastatin 80 mg tablet 80 mg PO BEDTIME #90 tabs 10/11/23 cetirizine 10 mg tablet (Zyrtec) 10 mg PO DAILY PRN allergy 10/14/23 symptoms #90 tabs cyclobenzaprine 10 mg tablet 10 mg PO DAILY PRN muscle spasm 7 10/25/23 days #7 tabs docusate sodium 100 mg capsule 100 mg PO BID PRN for constipation 10/26/23 #60 caps insulin lispro 100 unit/mL 1 sliding scale dose subcut TIDAC 10/26/23 subcutaneous pen #15 mL duloxetine 30 mg capsule,delayed 30 mg PO DAILY #90 caps 10/28/23 release meloxicam 15 mg tablet 15 mg PO DAILY PRN Pain #30 tabs 10/28/23 Allergies Allergy/AdvReac Type Severity Reaction Status Date / Time No Known Allergies Allergy Verified 11/01/23 20:14 Review of Systems Review of Systems: Yes all other systems are reviewed and are negative [facility] Past Medical History Medical History Encounter to establish care Diabetic retinopathy Type 2 diabetes mellitus with hyperglycemia, with long-term current use of insulin Essential hypertension Hyperlipidemia LDL goal <100 Gastroparesis Hyperlipidemia Depression Asthma Epilepsy Diabetes Hypertension Surgical History Hx of colonoscopy (~06/2018) H/O esophagogastroduodenoscopy (03/14/18) History of ankle surgery H/O section Family History Family History Mother Diabetes Father Diabetes Social History Social History Household Members: Spouse, Children and Caregiver Housing: Apartment Do you presently have visiting nurse or other home services: Yes ([facility] Visiting nurse. [phone], can call in regrads to patients care.) Alcohol intake: never Patient Tobacco Use Status: Never used Tobacco Smoked in Last 30 Days: No e-Cigarette/Vaping Use: Never Used Second Hand Smoke Exposure: No Use of substances other than those prescribed or required for medical reasons: No Advance Directives: No Advance Directives Information Provided: No Do you have a plan to hurt others: No Plan service: No Current occupational status: unemployed Cognitive needs: Yes (cane/walker) Hearing needs: No Vision needs: Yes (glasses) Physical Exam Vital Signs: Vital Signs: Last Vital Signs Temp 98.2 F 11/01/23 22:09 Pulse 96 11/01/23 22:09 Resp 14 11/01/23 22:09 BP 172/84 H 11/01/23 22:09 Pulse Ox 95 11/01/23 22:09 O2 Del Method Room Air 11/01/23 22:09 BMI result Body Mass Index 32.5 Appearance: Alert. Oriented X3. No acute distress. Eyes: PERRLA, No Nystagmus feel dizzy vertiginous feeling on moving the head to the left side ENT: Pharynx normal. Oral Mucosa moist Neck: Normal inspection. Neck supple. CVS: Normal heart rate and rhythm. Pulses normal. Left chest wall tenderness Respiratory: No respiratory distress. Equal air entry bilateral, no wheezing/rales/rhonchi Abdomen: Soft and nontender. Bowel sounds are present, no mass palpable, no CVA tenderness Skin: Skin warm and dry. Normal skin color. Normal skin turgor. Extremities: No lower extremity edema. No calf tenderness Neuro: Oriented X 3. No motor deficit. No sensory deficit.No cerebellar signs , cranial nerves II-XII intact Medications Administered Discontinued Medications Generic Name Dose Route Start Last Admin Trade Name Freq PRN Reason Stop Dose Admin Amlodipine Besylate 5 mg 11/01/23 20:46 11/01/23 21:20 Amlodipine Besylate 5 Mg Tablet PO 11/01/23 20:47 5 mg ONCE ONE Administration Protocol Medical Decision Making Medical Decision Making [facility] Narrative: Patient atypical chest pain with dizziness recent stress test negative less than 3 months ago. 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 Lab Attestation statement: I reviewed the patient's lab results. 11/01/23 20:22 11/01/23 20:22 Labs: Lab Results 11/01/23 11/01/23 Range/Units 20:10 20:22 WBC 7.8 (4.8-10.8) X10*3/uL RBC 3.67 L (4.20-5.50) X10*6/uL Hgb 10.6 L (12.0-16.0) g/dl Hct 32.1 L (37.0-47.0) % MCV 87.5 (80.0-98.0) fL MCH 28.9 (27.0-33.0) pg MCHC 33.0 (31.0-35.0) g/dl RDW 12.9 (11.0-16.0) % Plt Count 282 (160-400) X10*3/uL MPV 9.6 (9.4-12.3) fL Immature Gran % (Auto) 0.1 (0.0-0.4) % Neut % (Auto) 62.4 (45-73) % Lymph % (Auto) 28.3 (20-40) % [place] % (Auto) 5.0 (2-11) % Eos % (Auto) 3.6 (0-4) % Baso % (Auto) 0.6 (0-2) % Lymph # (Auto) 2.2 (1.2-4.9) X10*3/uL [place] # (Auto) 0.4 (0.1-1.2) X10*3/uL Eos # (Auto) 0.3 (0.0-0.4) X10*3/uL Baso # (Auto) 0.1 (0.0-0.2) X10*3/uL Abs Immat Gran (auto) 0.01 (0.00-0.03) X10*3/uL Absolute Neuts (auto) 4.9 (2.0-8.3) x10*3/uL Absolute Nucleated RBC 0.000 (0.0-0.012) X10*3/uL Nucleated RBC % (auto) 0.0 (0.0-0.2) /100WBC Sodium 145 (135-145) mmol/L Potassium 3.6 (3.3-5.1) mmol/L Chloride 107 (96-108) mmol/L Carbon Dioxide 32 H (22-29) mmol/L Anion Gap 10 L (12-20) BUN 23 H (9-16) mg/dL Creatinine 0.96 (0.5-1.4) mg/dL Estim Creat Clear Calc 66.0 Estimated GFR 60 POC Glucose 202 H (60-115) mg/dL Random Glucose 228 H (60-115) mg/dL Calcium 9.0 (8.4-10.2) mg/dL Total Bilirubin 0.4 (0.0-1.0) mg/dL AST 12 (5-31) U/L ALT 13 (0-31) U/L Alkaline Phosphatase 122 H (39-117) U/L Troponin I High Sens 8.8 (<3.5-17.0) ng/L Total Protein 6.6 (6.5-8.0) g/dL Albumin 3.3 L (3.5-5.0) g/dL Independent Interpretation I performed an independent interpretation of an: EKG Interpretation: Normal sinus rhythm heart rate 99 beats per minute normal interval normal axis no acute ST T wave changes no acute ischemia Discharge Plan Discharge Clinical Impression: Hypertension, Chest pain Patient Disposition: Home, Self-Care Instructions: Chest Pain (ED), Chronic Hypertension (ED) Additional Instructions: Continue taking medication as prescribed by your PCP Increase the dose of amlodipine to 10 mg a day for blood pressure control Follow-up with your plastic production machine setter/PCP Prescriptions: No Action omeprazole 20 mg capsule,delayed release(DR/EC) 20 mg PO BID@0630,1630 Qty: 180 3RF (DME) FreeStyle Guerda 2 Scott Misc See Rx Instructions .Route Qty: 1 0RF Rx Instructions: As directed acetaminophen 325 mg tablet 650 mg PO Q6H PRN (Reason: Pain) Qty: 90 0RF ezetimibe 10 mg tablet 10 mg PO DAILY Qty: 90 1RF Januvia 100 mg tablet 100 mg PO DAILY Qty: 90 0RF aspirin 81 mg tablet,delayed release (DR/EC) 81 mg PO DAILY Qty: 90 0RF amitriptyline 10 mg tablet 40 mg PO DAILY 90 Days Qty: 360 0RF hydrochlorothiazide 12.5 mg tablet 12.5 mg PO DAILY 90 Days Qty: 90 1RF levetiracetam 1,000 mg tablet 2,000 mg PO BID 30 Days Qty: 120 0RF (DME) FreeStyle Guerda 2 Sensor Kit See Rx Instructions .Route Qty: 1 3RF Rx Instructions: As directed carvedilol 6.25 mg tablet 6.25 mg PO BID Qty: 60 0RF Rx Instructions: must administer with a meal/food amlodipine 5 mg tablet 5 mg PO DAILY 90 Days Qty: 90 1RF atorvastatin 80 mg tablet 80 mg PO BEDTIME Qty: 90 1RF cetirizine [Zyrtec] 10 mg tablet 10 mg PO DAILY PRN (Reason: allergy symptoms) Qty: 90 0RF cyclobenzaprine 10 mg tablet 10 mg PO DAILY PRN (Reason: muscle spasm) 7 Days Qty: 7 0RF docusate sodium 100 mg capsule 100 mg PO BID PRN (Reason: for constipation) Qty: 60 2RF insulin lispro 100 unit/mL insulin pen 1 sliding scale dose subcut TIDAC Qty: 15 1RF Rx Instructions: 5 units if BG <250, 10 units if Bg > 250 meloxicam 15 mg tablet 15 mg PO DAILY PRN (Reason: Pain) Qty: 30 0RF duloxetine 30 mg capsule,delayed release(DR/EC) 30 mg PO DAILY Qty: 90 0RF lidocaine 5 % Adhesive Patch,Medicated 1 patch TOPICAL DAILY Rx Instructions: leave on most painful area for up to 12 hrs ketorolac 0.5 % drops 1 drp ophthalmic (eye) TID PRN (Reason: Allergy Symptoms) Invokana 300 mg tablet 300 mg PO DAILY insulin glargine [Lantus Solostar U-100 Insulin] 100 unit/mL (3 mL) insulin pen 48 unit subcut BEDTIME lactulose 20 gram/30 mL solution 20 g PO BID Qty: 1200 0RF Metamucil 3.4 gram/5.4 gram powder 1 tbsp PO DAILY Qty: 660 0RF Rx Instructions: mix into at least 8 oz of water or juice before administering furosemide 20 mg tablet 20 mg PO DAILY 90 Days Qty: 90 1RF Protocol: Hold for SBP< HOLD for SBP < : 90 lisinopril 40 mg tablet 40 mg PO DAILY Qty: 90 1RF Interventions: ED Discharge Assessment Last Done: 11/01/23 22:09 Discharge Date/Time: 11/01/23 22:11 Print Language: Congolese
[2023-11-01 20:44] LABS: Alanine Aminotransferase 13 U/L (0-31); Albumin Level 3.3 g/dL (3.5-5.0); Alkaline Phosphatase 122 U/L (39-117); Anion Gap 10 (12-20); Aspartate Amino Transferase 12 U/L (5-31); Bilirubin Total 0.4 mg/dL (0.0-1.0); Blood Urea Nitrogen 23 mg/dL (9-16); Carbon Dioxide 32 mmol/L (22-29); Chloride 107 mmol/L (96-108); Estimated Glomerular Filt Rate 60; Glucose Random 228 mg/dL (60-115); Potassium 3.6 mmol/L (3.3-5.1); Sodium 145 mmol/L (135-145); Total Protein 6.6 g/dL (6.5-8.0)
[2023-11-01 20:51] LABS: Troponin-I High Sensitivity 8.8 ng/L (<3.5-17.0)
[2023-11-01 21:20] VITALS: BP 168/90
[2023-11-01] MEDS: amLODIPine Besylate 5 MG TABLET PO (21:20)
[2023-11-01 21:21] VITALS: BP 168/90; PULSE 96; RESP 14; O2SAT 95
[2023-11-01 22:09] VITALS: BP 172/84; PULSE 96; RESP 14; TEMP 36.8; O2SAT 95
== END 2023-11-01 22:11 | disposition home or self-care (01) ==
PROVIDERS: Emergency Provider Internal Medicine
DX: R07.9 Chest pain, unspecified (principal); I10 Essential (primary) hypertension; E11.9 Type 2 diabetes mellitus without complications; E78.5 Hyperlipidemia, unspecified; J45.909 Unspecified asthma, uncomplicated; Z79.84 Long term (current) use of oral hypoglycemic drugs; Z79.82 Long term (current) use of aspirin; Z79.02 Long term (current) use of antithrombotics/antiplatelets; Z79.4 Long term (current) use of insulin
CPT/HCPCS: 36415; 80053; 82947; 84484; 85025; 93005; 99283; 99285

== ENCOUNTER → 2023-11-01 20:13 | Outpatient (BNV) | payer OTHER, SELFPAY | PROVIDERS: Emergency Provider Internal Medicine; Visit Provider Internal Medicine Cardiovascular Disease | DX: R07.9 Chest pain, unspecified (principal) | CPT/HCPCS: 93010 ==

== ENCOUNTER 2023-11-22 10:30 | Inpatient (IN) | payer OTHER, SELFPAY ==
[2023-11-22] VITALS (7 sets, daily range): BP systolic 150–182; BP diastolic 68–99; PULSE 83–98; RESP 16–18; TEMP 36.6–36.9; O2SAT 93–99; BMI 30.2
--- NOTE | ~2023-11-22 | CT_ITS ---
EXAMINATION: CT CHEST WITHOUT CONTRAST CLINICAL INFORMATION: Chest pain COMPARISON: Chest radiograph 08/07/2023 CT abdomen pelvis 09/14/2023 TECHNIQUE: Multidetector volumetric CT imaging of the chest was done. Axial MIP volume rendering provided. Sagittal and coronal reformatted images were obtained. This CT examination was performed using dose optimization techniques as appropriate, variously including the following: *Automated exposure control *Adjustment of mA and/or kV according to patient size (this includes techniques or standardized protocols for targeted exams where dose is matched to indication/reason for exam; i.e. extremities or head) *Use of iterative reconstruction technique DLP: 246 mGy-cm FINDINGS: LUNGS AND PLEURA: Diffuse bronchial thickening is present. There are new bilateral pleural effusions present along with new increased increased interstitial markings (at least at the lung bases when compared with the prior recent CT abdomen pelvis). MEDIASTINUM: The heart is enlarged. No mediastinal or hilar lymphadenopathy. No significant pericardial effusion. CORONARY ARTERY CALCIFICATION: Minimal AXILLA: No lymphadenopathy. UPPER ABDOMEN: Unremarkable. OSSEOUS STRUCTURES: Unremarkable. CT/CT chest wo IV con IMPRESSION: New bilateral pleural effusions with new increased interstitial markings at the lung bases and cardiomegaly. Findings are suggestive of CHF. Fleischner guidelines were followed.
--- NOTE | ~2023-11-22 | CT_ITS ---
EXAMINATION: CT abdomen pelvis wo IV con CLINICAL INFORMATION: Reason for Exam left flank pain COMPARISON: Prior CT scan 09/14/2023 TECHNIQUE: Multidetector volumetric imaging was performed from the superior aspect of the liver through the pubic symphysis noncontrasted CT Sagittal and coronal reformatted images were obtained on the technologist's workstation. This CT examination was performed using dose optimization techniques as appropriate, variously including the following: *Automated exposure control *Adjustment of mA and/or kV according to patient size (this includes techniques or standardized protocols for targeted exams where dose is matched to indication/reason for exam; i.e. extremities or head) *Use of iterative reconstruction technique DLP: 643 mGy-cm FINDINGS: Study is limited by motion artifact. LOWER THORAX: Bilateral small pleural effusions, mild infiltrate/interstitial opacification and interstitial interlobular edema at lung bases bilaterally. HEPATOBILIARY: No focal hepatic lesions. No biliary ductal dilatation. GALLBLADDER: Gallbladder unremarkable. SPLEEN: Spleen is normal in size. PANCREAS: No focal mass or ductal dilatation. STOMACH AND GASTROINTESTINAL TRACT: Stomach is grossly unremarkable. There is diverticulosis of the sigmoid colon without CT evidence of acute diverticulitis. No CT evidence of appendicitis. ADRENALS: No adrenal nodules. KIDNEYS/URETERS: No hydronephrosis, stones or solid mass lesions. URINARY BLADDER: Partially decompressed. PELVIC VISCERA: Unremarkable PERITONEUM: No free air or fluid. LYMPH NODES: No lymphadenopathy. VASCULAR:Vascular assessment is limited due to lack of contrast, there are bilateral common iliac stents. BONES, ABDOMINAL WALL AND SOFT TISSUES: Age-appropriate changes of the spine and skeletal system, no destructive osteolytic or osteosclerotic bone lesion found CT/CT abdomen pelvis wo IV con IMPRESSION: 1. Exam limited by motion artifact and lack of IV contrast. 2. No CT evidence of kidney stones or hydronephrosis. 3. Diverticulosis without evidence of acute diverticulitis. 4. Bilateral small pleural effusions, mild infiltrate/interstitial opacification and interstitial interlobular edema at lung bases bilaterally described on the CT chest performed the same day.
--- NOTE | 2023-11-22 11:36 | ECG_ITS ---
Test Reason : abd pain Blood Pressure : / mmHG Vent. Rate : 091 BPM Atrial Rate : 091 BPM P-R Int : 180 ms QRS Dur : 086 ms QT Int : 362 ms P-R-T Axes : 029 019 051 degrees QTc Int : 445 ms Normal sinus rhythm Normal ECG When compared with ECG of 01-NOV-2023 20:13, No significant change was found Referred By: Ken Jhaveri Electronically Signed By:CAMILO RUEDA MD
--- NOTE | 2023-11-22 11:41 | ED.GENADULT ---
HPI - General Adult General Chief complaint: Abdominal Pain Stated complaint: ABD PAIN,CHEST DISCOMFORT,NO MEDS TODAY PER EMS Time Seen by Provider: 11/22/23 14:34 Source: patient Mode of arrival: ambulatory Limitations: no limitations History of Present Illness HPI narrative: 58-year-old female with pertinent medical history T2 DM, HTN, seizure, HLD came in complaining of generalized chest pain and shortness of breath for the past 3 days patient also is complaining of left flank pain for the 2-3 days. Patient normally lives home have a group care worker who responsible to administer medication to the patient okay on a daily basis, patient stated that she did not have her medicine for the past 3 days because her caregiver is on vacation, patient is here today complaining of multiple symptoms including chest pain, shortness of breath, and left flank pain. Patient was seen in triage had CT of the chest. Related Data Home Medications ?Medication ?Instructions ?Recorded ?Confirmed canagliflozin 300 mg tablet 300 mg PO DAILY 08/07/23 11/22/23 (Invokana) insulin glargine 100 unit/mL (3 48 unit subcut BEDTIME 08/07/23 11/22/23 mL) subcutaneous pen (Lantus Solostar U-100 Insulin) ketorolac 0.5 % eye drops 1 drp ophthalmic (eye) TID PRN 08/07/23 11/22/23 Allergy Symptoms insulin lispro 100 unit/mL See Protocol subcut TIDAC 11/22/23 11/22/23 subcutaneous pen psyllium husk 3.4 gram/5.4 gram 1 tsp PO DAILY 11/22/23 11/22/23 oral powder (Metamucil) Previous Rx's ?Medication ?Instructions ?Recorded omeprazole 20 mg capsule,delayed 20 mg PO BID@0630,1630 #180 caps 03/30/23 release flash glucose scanning reader #1 ea 06/05/23 (FreeStyle Guerda 2 [place]) acetaminophen 325 mg tablet 650 mg (2 x 325 mg) PO Q6H PRN 07/06/23 Pain #90 tabs ezetimibe 10 mg tablet 10 mg PO DAILY #90 tabs 08/01/23 aspirin 81 mg tablet,delayed 81 mg PO DAILY #90 tabs 08/25/23 release sitagliptin phosphate 100 mg 100 mg PO DAILY #90 tabs 08/25/23 tablet (Januvia) furosemide 20 mg tablet 20 mg PO DAILY 90 days #90 tabs 09/01/23 lisinopril 40 mg tablet 40 mg PO DAILY #90 tabs 09/01/23 amitriptyline 10 mg tablet 40 mg (4 x 10 mg) PO DAILY 90 days 09/05/23 #360 tabs hydrochlorothiazide 12.5 mg tablet 12.5 mg PO DAILY 90 days #90 tabs 09/12/23 lactulose 20 gram/30 mL oral 20 g (30 mL) PO BID #1,200 mL 09/14/23 solution flash glucose sensor (FreeStyle #1 ea 09/27/23 Guerda 2 Sensor kit) amlodipine 5 mg tablet 5 mg PO DAILY 90 days #90 tabs 10/03/23 carvedilol 6.25 mg tablet 6.25 mg PO BID #60 tabs 10/03/23 atorvastatin 80 mg tablet 80 mg PO BEDTIME #90 tabs 10/11/23 cetirizine 10 mg tablet (Zyrtec) 10 mg PO DAILY PRN allergy 10/14/23 symptoms #90 tabs cyclobenzaprine 10 mg tablet 10 mg PO DAILY PRN muscle spasm 7 10/25/23 days #7 tabs docusate sodium 100 mg capsule 100 mg PO BID PRN for constipation 10/26/23 #60 caps meloxicam 15 mg tablet 15 mg PO DAILY PRN Pain #30 tabs 10/28/23 duloxetine 30 mg capsule,delayed 30 mg PO DAILY #90 caps 11/15/23 release levetiracetam 1,000 mg tablet 2,000 mg (2 x 1,000 mg) PO BID 30 11/15/23 days #120 tabs Allergies Allergy/AdvReac Type Severity Reaction Status Date / Time No Known Allergies Allergy Verified 11/22/23 11:36 Review of Systems Review of Systems: All other systems are reviewed and are negative Constitutional: Reports as per HPI and Reports no additional constitutional complaints Eyes: Reports as per HPI and Reports no additional eye complaints Reports system reviewed and no additional complaints, except as documented Cardiovascular: Reports as per HPI and Reports no additional cardiovascular complaints Respiratory: Reports as per HPI and Reports no additional respiratory complaints Gastrointestinal: Reports as per HPI and Reports no additional gastrointestinal complaints Genitourinary: Reports no additional female genitourinary complaints Musculoskeletal: Reports no additional musculoskeletal complaints Skin/Breast: Reports system reviewed and no additional complaints, except as docu Psychiatric: Reports no additional psychiatric complaints Endocrine: Reports no additional endocrine complaints Hematologic/Lymphatic: Reports no additional hematologic/lymphatic complaints Allergic/Immunologic: Reports no additional allergic/immunologic complaints Reports system reviewed and no additional complaints, except as documented and Reports Abnormal speech present [facility] Past Medical History Medical History Encounter to establish care Diabetic retinopathy Type 2 diabetes mellitus with hyperglycemia, with long-term current use of insulin Essential hypertension Hyperlipidemia LDL goal <100 Gastroparesis Hyperlipidemia Depression Asthma Epilepsy Diabetes Hypertension Surgical History Hx of colonoscopy (~06/2018) H/O esophagogastroduodenoscopy (03/14/18) History of ankle surgery H/O section Family History Family History Mother Diabetes Father Diabetes Social History Social History Household Members: Spouse, Children and Caregiver Housing: Apartment Do you presently have visiting nurse or other home services: Yes ([facility] Visiting nurse. [phone], can call in regrads to patients care.) Alcohol intake: never Patient Tobacco Use Status: Never used Tobacco Smoked in Last 30 Days: No e-Cigarette/Vaping Use: Never Used Second Hand Smoke Exposure: No Use of substances other than those prescribed or required for medical reasons: No Advance Directives: No Advance Directives Information Provided: Yes Do you have a plan to hurt others: No Plan Nutrition Risks: No Nutritional Risk Patient : No service: No Current occupational status: unemployed Cognitive needs: Yes (cane/walker) Hearing needs: No Vision needs: Yes (glasses) Physical Exam ED Vital Signs: Vital Signs - 24 hr 11/22/23 11:31 11/22/23 15:14 11/22/23 15:17 Temperature 98.4 F 97.9 F Pulse Rate 94 93 Respiratory Rate 18 17 Blood Pressure 182/99 H 176/89 H 176/89 H Pulse Oximetry 94 96 Oxygen Delivery Method Room Air Room Air 11/22/23 15:17 11/22/23 15:17 11/22/23 15:18 Temperature Pulse Rate 93 Respiratory Rate Blood Pressure 176/89 H 176/89 H 176/89 H Pulse Oximetry Oxygen Delivery Method BMI result Body Mass Index 30.2 Vital signs have been reviewed and appear to be correct. Blood pressure elevated. Heart rate normal. Respiratory rate normal. Temperature normal. Oxygen saturation normal. Appearance: Alert. Oriented X3. No acute distress. Head: Normal external exam. Normocephalic. Atraumatic. No Earl signs noted. No raccoon eyes noted Eyes: PERRLA. EOMI. Conjunctiva and sclera normal. Eyelids normal. ENT: TM's Normal. Pharynx normal. Uvula midline. Moist mucous membranes. No trismus noted. No drooling noted. No muffled voice noted. Neck: Normal inspection. Neck supple. FROM. No adenopathy. Thyroid Normal. No meningeal signs. No neck mass noted. CVS: Normal heart rate and rhythm. Heart sound normal. No murmurs noted. Pulses normal throughout. Respiratory: No respiratory distress. Painless inspiration. Breath sounds normal. No wheezes/rales/rhonchi noted. Chest nontender. No accessory muscle usage noted or decreased air movement noted. Abdomen: Soft and nontender. Bowel sounds normal in all 4 quadrants. No distention noted. No organomegaly noted. No visible injury noted. Back: No CVA tenderness. Full range of motion noted. Skin: Skin warm and dry. Normal skin color. Normal skin turgor. No rashes/lesions/lacerations noted. Extremities: No lower extremity edema. Extremities exhibit normal range of motion. Extremities nontender. Neuro: Oriented X 3. Cranial nerve exam: II-XII are grossly intact No motor deficit. No sensory deficit. Reflexes normal. Course Course Course Narrative: RME: Triage written by CARA Jhaveri. Patient presents for abdominal pain, chest pain, back pain, and headache. Patient has not had her meds for 2 days. Meds for seizure, diabetes, and CHF. Patient has not had any seizures. Patient has generalized abdominal tenderness. Labs EKG ordered. Reevaluation(s) Reevaluation #1: 58-year-old female came in for multiple complaints CT of the chest is consistent with pulmonary edema and patient is complaining of shortness of breath, patient did not take her medication because her caregiver is on vacation and there was no body else to administer the patient her daily medications . Patient is unsafe to be discharged home since there is no medication, and also patient needs to be gently diuresed the case discussed with Dr. Hedrick and the plan is to admit the patient. Time: 18:08 Medications Administered Generic Name Dose Route Start Last Admin Trade Name Freq PRN Reason Stop Dose Admin Acetaminophen 975 mg 11/22/23 21:00 11/22/23 21:00 Acetaminophen 325 Mg Tablet PO 975 mg TID AMINTA Administration Enoxaparin Sodium 40 mg 11/22/23 19:00 11/22/23 21:00 Enoxaparin Sodium 40 Mg/0.4 Ml Syringe SUBCUT 40 mg Q24H AMINTA Administration Furosemide 20 mg 11/22/23 21:00 11/22/23 21:18 Furosemide 20 Mg/2 Ml Vial IVPUSH 20 mg BID AMINTA Administration Protocol Sodium Chloride 3 ml 11/23/23 00:00 11/23/23 00:17 0.9 % Sodium Chloride Flush 3 Ml Syringe IVFLUSH 3 ml QSHIFT AMINTA Administration Discontinued Medications Generic Name Dose Route Start Last Admin Trade Name Darrellq PRN Reason Stop Dose Admin Amlodipine Besylate 5 mg 11/22/23 14:59 11/22/23 15:18 Amlodipine Besylate 5 Mg Tablet PO 11/22/23 15:00 5 mg ONCE ONE Administration Protocol Carvedilol 6.25 mg 11/22/23 14:59 11/22/23 15:17 Carvedilol 6.25 Mg Tablet PO 11/22/23 15:00 6.25 mg ONCE ONE Administration Protocol Furosemide 20 mg 11/22/23 14:59 11/22/23 15:17 Furosemide 20 Mg Tablet PO 11/22/23 15:00 20 mg ONCE ONE Administration Protocol Hydrochlorothiazide 12.5 mg 11/22/23 14:59 11/22/23 15:17 Hydrochlorothiazide 12.5 Mg Tablet PO 11/22/23 15:00 12.5 mg ONCE ONE Administration Protocol Ibuprofen 600 mg 11/22/23 14:56 11/22/23 15:16 Ibuprofen 600 Mg Tablet PO 11/22/23 14:57 600 mg ONCE ONE Administration Medical Decision Making Differential Diagnosis Differential Diagnoses: The differential diagnosis associated with the presentation includes ( CHF, ACS, pneumonia, pneumothorax, pleural effusion, colitis, UTI, kidney stone, pancreatitis, diverticulitis, acute appendicitis, electrolyte derangement, severe anemia.) Admission/Observation Consideration of admission/observation: Escalation of care including admission/observation considered Consult Healthcare Provider Management of the patient was discussed with: Hospitalist ( Dr. Hedrick) Lab Data MDM Lab Attestation statement: I reviewed the patient's lab results. 11/22/23 12:29 11/22/23 12:29 Labs: Lab Results 11/22/23 Range/Units 12:29 WBC 7.9 (4.8-10.8) X10*3/uL RBC 3.83 L (4.20-5.50) X10*6/uL Hgb 11.2 L (12.0-16.0) g/dl Hct 34.1 L (37.0-47.0) % MCV 89.0 (80.0-98.0) fL MCH 29.2 (27.0-33.0) pg MCHC 32.8 (31.0-35.0) g/dl RDW 13.2 (11.0-16.0) % Plt Count 290 (160-400) X10*3/uL MPV 9.2 L (9.4-12.3) fL Immature Gran % (Auto) 0.4 (0.0-0.4) % Neut % (Auto) 67.8 (45-73) % Lymph % (Auto) 21.8 (20-40) % [place] % (Auto) 6.7 (2-11) % Eos % (Auto) 2.9 (0-4) % Baso % (Auto) 0.4 (0-2) % Lymph # (Auto) 1.7 (1.2-4.9) X10*3/uL [place] # (Auto) 0.5 (0.1-1.2) X10*3/uL Eos # (Auto) 0.2 (0.0-0.4) X10*3/uL Baso # (Auto) 0.0 (0.0-0.2) X10*3/uL Abs Immat Gran (auto) 0.03 (0.00-0.03) X10*3/uL Absolute Neuts (auto) 5.4 (2.0-8.3) x10*3/uL Absolute Nucleated RBC 0.000 (0.0-0.012) X10*3/uL Nucleated RBC % (auto) 0.0 (0.0-0.2) /100WBC PT 11.3 (11.1-13.3) SEC INR 0.9 (0.9-1.1) APTT 29.1 (26.0-36.8) SEC Sodium 141 (135-145) mmol/L Potassium 4.2 (3.3-5.1) mmol/L Chloride 108 (96-108) mmol/L Carbon Dioxide 25 (22-29) mmol/L Anion Gap 12 (12-20) BUN 17 H (9-16) mg/dL Creatinine 0.72 (0.5-1.4) mg/dL Estim Creat Clear Calc 81.6 Estimated GFR > 60 Random Glucose 224 H (60-115) mg/dL Calcium 9.2 (8.4-10.2) mg/dL Total Bilirubin 0.7 (0.0-1.0) mg/dL AST 13 (5-31) U/L ALT 12 (0-31) U/L Alkaline Phosphatase 125 H (39-117) U/L Troponin I High Sens 8.0 (<3.5-17.0) ng/L B-Natriuretic Peptide 371 H (<100) pg/mL Total Protein 6.8 (6.5-8.0) g/dL Albumin 3.4 L (3.5-5.0) g/dL Lipase 10 (8-78) U/L Independent Interpretation I performed an independent interpretation of an: CT Scan ( chest/ abdomen pelvis:New bilateral pleural effusions with new increased interstitial markings at the lung bases and cardiomegaly. Findings are suggestive of CHF.1. Exam limited by motion artifact and lack of IV contrast. 2. No CT evidence of kidney stones or hydronephrosis. 3. Diverticulosi) Radiology Impression Discussion of test interpretation with radiology: I have reviewed the radiologist's reading. Chronic Conditions Patient?s care impacted by: Other ( CHF.) Discharge Plan Discharge Clinical Impression: Shortness of breath, Chest pain, Flank pain Patient Disposition: Admitted As Inpatient
[2023-11-22 12:33] LABS: MANUAL DIFF FLAG NO
[2023-11-22 12:35] LABS: Basophils Percent Auto 0.4 % (0-2); Eosinophils Absolute Auto 0.2 X10*3/uL (0.0-0.4); Eosinophils Percent Auto 2.9 % (0-4); Hematocrit 34.1 % (37.0-47.0); Hemoglobin 11.2 g/dl (12.0-16.0); Imm Gran Abs Auto 0.03 X10*3/uL (0.00-0.03); Imm Gran Pct Auto 0.4 % (0.0-0.4); Lymphocytes Absolute Auto 1.7 X10*3/uL (1.2-4.9); Lymphocytes Percent Auto 21.8 % (20-40); Mean Corpuscular HGB Conc 32.8 g/dl (31.0-35.0); Mean Corpuscular Hemoglobin 29.2 pg (27.0-33.0); Mean Platelet Volume 9.2 fL (9.4-12.3); Monocytes Absolute Auto 0.5 X10*3/uL (0.1-1.2); Monocytes Percent Auto 6.7 % (2-11); Neutrophils Absolute Auto 5.4 x10*3/uL (2.0-8.3); Neutrophils Percent Auto 67.8 % (45-73); Platelet Count 290 X10*3/uL (160-400); Red Blood Count 3.83 X10*6/uL (4.20-5.50); Red Cell Distribution Width 13.2 % (11.0-16.0); White Blood Count 7.9 X10*3/uL (4.8-10.8)
[2023-11-22 12:41] LABS: INTERNATIONAL NORM RATIO 0.9 (0.9-1.1); Prothrombin Time 11.3 SEC (11.1-13.3)
[2023-11-22 12:43] LABS: Partial Thromboplastin Time 29.1 SEC (26.0-36.8)
[2023-11-22 12:50] LABS: Alanine Aminotransferase 12 U/L (0-31); Albumin Level 3.4 g/dL (3.5-5.0); Alkaline Phosphatase 125 U/L (39-117); Anion Gap 12 (12-20); Aspartate Amino Transferase 13 U/L (5-31); Bilirubin Total 0.7 mg/dL (0.0-1.0); Blood Urea Nitrogen 17 mg/dL (9-16); Calcium 9.2 mg/dL (8.4-10.2); Carbon Dioxide 25 mmol/L (22-29); Chloride 108 mmol/L (96-108); Creatinine Clr Calc Pharmacy 81.6; Estimated Glomerular Filt Rate > 60; Glucose Random 224 mg/dL (60-115); Lipase 10 U/L (8-78); Potassium 4.2 mmol/L (3.3-5.1); Sodium 141 mmol/L (135-145); Total Protein 6.8 g/dL (6.5-8.0)
[2023-11-22 12:56] LABS: B Type Natriuretic Peptide 371 pg/mL (<100)
[2023-11-22] MEDS: Ibuprofen 600 MG TABLET PO (15:16)
[2023-11-22] MEDS: Furosemide 20 MG TABLET PO (15:17)
[2023-11-22] MEDS: hydroCHLOROthiazide 12.5 MG TABLET PO (15:17)
[2023-11-22] MEDS: carvediloL 6.25 MG TABLET PO (15:17)
[2023-11-22] MEDS: amLODIPine Besylate 5 MG TABLET PO (15:18)
--- NOTE | 2023-11-22 18:21 | MHC.CM.ED ---
Addendum entered by Brie Moore 11/22/23 19:15: ALLEN 11/21. Original given to patient and copy to medical records. Pt used medical billing coordinator, as patient is English speaking. CM will need to follow up with Melissa in the morning to ensure that patient has access to her medications at home. Original Note: CM met with patient at the request of Dr. Cho. There are some concerns that the patient has been without medications for 4 days; her meds are in a locked box, and the VNA has not come to refill her med boxes. CM met with patient with a medical billing coordinator, as she is English speaking. Patient lives with her 16 year old daughter. She has a 'Sister Aminah and her daughter who care for her daily. Aminah and the patient were raised together in [facility]. She uses a cane and a rollator. She is active with [facility]. Her nurse is usually Rachael, who fills her med boxes every other day and for the weekend. Her medication bottles are in a locked box. Pt has depression and has taken too many medications in the past. Per sister and niece, Rachael usually comes at 0730 and M-Th and gives the medications for the day and sets up the next day. She sets up weekend medications on for -Sun. Per niece, she called [facility] and they told her Rachael was on vacation. Per family, no one has come to see patient and they are with her from 8-12 noon, so the patient has no access to her medications and the family does not have a garibay. Per Melissa in [facility], the patient is active with them and the nurse comes 4x/wk. They stated the patient was not at home yesterday for a nursing visit. They stated she went shopping and ran errands. CM sent a message via [facility] asking for more clarification of medication management, as patient and family state no one has come to see patient and arranged meds since last , despite niclaudia calling agency. Provider and primary RN aware of above situation. CM will need to call Melissa tomorrow during regular business hours to verify medication situation. Pt may be admitted to the hospital for CHF. CM will follow. Pt awaiting hospitalist.
--- NOTE | 2023-11-22 18:44 | PM.IMHP ---
History of Present Illness Date of Service: 11/22/23 Attending physician on admission: Shana Hedrick Chief Complaint: chf 58-year-old female with pertinent medical history T2 DM, HTN, seizure, HLD came in complaining of generalized chest pain and shortness of breath for the past 3 days patient also is complaining of left paraspinal muscle pain for the 2 days -she takes pain medications as well as Lasix at home and muscle relaxers which she missed for 3-4 days due to her VNA is on vacation, she has medications in the lock box. Subsequently patient started having these symptoms and decided come to the hospital, in hospital-patient's chest CT scan was done which shows possible congestive changes, patient also has some leg edema, she is not aware if she gained any weight. Her BNP is elevated 370 which is above her baseline CT abdomen was also done which seems to be negative except above CT chest findings. Denies any new complaint of chest pain or abdominal pain or fever or chills or nausea or vomiting Denies any cough Denies any weakness or numbness. Lab imaging EKG reviewed: BUN 17, creatinine sitter 0.7 CBC seems fine, EKG NSR, no new findings. CT/CT chest wo IV con: New bilateral pleural effusions with new increased interstitial markings at the lung bases and cardiomegaly. Findings are suggestive of CHF. Patient received Lasix, amlodipine, Tylenol, hydrochlorothiazide,, Coreg in ED and admission requested for CHF exacerbation. Review of Systems Review of Systems: Yes all other systems are reviewed and are negative [facility] Medical History Encounter to establish care Diabetic retinopathy Type 2 diabetes mellitus with hyperglycemia, with long-term current use of insulin Essential hypertension Hyperlipidemia LDL goal <100 Gastroparesis Hyperlipidemia Depression Asthma Epilepsy Diabetes Hypertension Family History Mother Diabetes Father Diabetes Surgical History Hx of colonoscopy (~06/2018) H/O esophagogastroduodenoscopy (03/14/18) History of ankle surgery H/O section Social History Household Members: Spouse, Children and Caregiver Housing: Apartment Do you presently have visiting nurse or other home services: Yes ([facility] Visiting nurse. [phone], can call in regrads to patients care.) Alcohol intake: never Patient Tobacco Use Status: Never used Tobacco Smoked in Last 30 Days: No e-Cigarette/Vaping Use: Never Used Second Hand Smoke Exposure: No Use of substances other than those prescribed or required for medical reasons: No Advance Directives: No Advance Directives Information Provided: Yes Do you have a plan to hurt others: No Plan Patient : No service: No Current occupational status: unemployed Cognitive needs: Yes (cane/walker) Hearing needs: No Vision needs: Yes (glasses) Meds Allergies Allergy/AdvReac Type Severity Reaction Status Date / Time No Known Allergies Allergy Verified 11/22/23 11:36 Active Medications: Current Medications Acetaminophen (Acetaminophen 325 Mg Tablet) 650 mg PO Q6H PRN PRN Reason: Fever Acetaminophen (Acetaminophen 325 Mg Tablet) 650 mg PO Q6H PRN PRN Reason: Pain, Mild (Pain Scale 1-3) Acetaminophen (Acetaminophen 325 Mg Tablet) 650 mg PO Q6H PRN PRN Reason: Headache Calcium Carbonate (Calcium Carbonate 750 Mg Tab.Chew) 750 mg PO Q6H PRN PRN Reason: Heartburn Furosemide (Furosemide 20 Mg/2 Ml Vial) 20 mg IVPUSH BID [facility]; Protocol Glucose (Glucose Gel 15 Gm Gel..Gram.) 15 gm PO Q15M PRN; Protocol PRN Reason: per Hypoglycemia Standing Ord. Dextrose (D10) 250 mls @ 750 mls/hr IV Q15M PRN; Protocol PRN Reason: per Hypoglycemia Standing Ord. Magnesium Hydroxide (Milk Of Magnesia 30 Ml Oral.Susp) 30 ml PO DAILY PRN PRN Reason: Constipation Melatonin (Melatonin 3 Mg Tablet) 6 mg PO BEDTIME PRN PRN Reason: Insomnia Polyethylene Glycol (Polyethylene Glycol 3350 17 Gm Powd.Pack) 17 gm PO DAILY PRN PRN Reason: Constipation Sodium Chloride (0.9 % Sodium Chloride Flush 3 Ml Syringe) [facility] Medications ?Medication ?Instructions ?Recorded ?Confirmed ?Last Taken ?Type lidocaine 5 % topical patch 1 patch topical DAILY 08/11/22 09/01/23 08/06/23 History canagliflozin 300 mg tablet 300 mg PO DAILY 08/07/23 09/01/23 08/06/23 History (Invokana) insulin glargine 100 unit/mL (3 48 unit subcut BEDTIME 08/07/23 09/01/23 08/05/23 History mL) subcutaneous pen (Lantus Solostar U-100 Insulin) ketorolac 0.5 % eye drops 1 drp ophthalmic (eye) TID PRN 08/07/23 09/01/23 Unknown History Allergy Symptoms Physical Exam Vital Signs and Narrative: Vital Signs: Last Vital Signs Temp 97.9 F 11/22/23 15:14 Pulse 93 11/22/23 15:17 Resp 17 11/22/23 15:14 BP 176/89 H 11/22/23 15:18 Pulse Ox 96 11/22/23 15:14 O2 Del Method Room Air 11/22/23 15:14 BMI result Body Mass Index 30.2 Appearance: Alert.? Oriented X3.? some sob cvs: rrr, [id number] , no murmur res: clear to auscultation ,no rhonchii or wheezing abd: no rebound or guarding ,nt, bs present. ext pulses present , no cyanosis ,leg edema 1+. neuro: axo3 , nonfocal. Results Labs 11/22/23 12:29 11/22/23 12:29 Labs: Laboratory Results - last 24 hr 11/22/23 12:29 MCV 89.0 MCH 29.2 MCHC 32.8 RDW 13.2 Plt Count 290 MPV 9.2 L Immature Gran % (Auto) 0.4 Neut % (Auto) 67.8 Lymph % (Auto) 21.8 [place] % (Auto) 6.7 Eos % (Auto) 2.9 Baso % (Auto) 0.4 Lymph # (Auto) 1.7 [place] # (Auto) 0.5 Eos # (Auto) 0.2 Baso # (Auto) 0.0 Abs Immat Gran (auto) 0.03 Absolute Neuts (auto) 5.4 Absolute Nucleated RBC 0.000 Nucleated RBC % (auto) 0.0 PT 11.3 INR 0.9 APTT 29.1 Anion Gap 12 Estim Creat Clear Calc 81.6 Estimated GFR > 60 Random Glucose 224 H Calcium 9.2 Total Bilirubin 0.7 AST 13 ALT 12 Alkaline Phosphatase 125 H Troponin I High Sens 8.0 B-Natriuretic Peptide 371 H Total Protein 6.8 Albumin 3.4 L Lipase 10 Imaging Radiologist's Impressions: Impressions Chest CT 11/22/23 12:20 IMPRESSION: New bilateral pleural effusions with new increased interstitial markings at the lung bases and cardiomegaly. Findings are suggestive of CHF. Fleischner guidelines were followed. Abdomen/Pelvis CT 11/22/23 16:08 IMPRESSION: 1. Exam limited by motion artifact and lack of IV contrast. 2. No CT evidence of kidney stones or hydronephrosis. 3. Diverticulosis without evidence of acute diverticulitis. 4. Bilateral small pleural effusions, mild infiltrate/interstitial opacification and interstitial interlobular edema at lung bases bilaterally described on the CT chest performed the same day. Assessment and Plan (1) Shortness of breath: Status: Acute (2) Congestive heart failure: Qualifiers: Heart failure type: systolic Heart failure chronicity: chronic Qualified Code(s): I50.22 - Chronic systolic (congestive) heart failure Status: Acute Plan 58-year-old female with pertinent medical history T2 DM, HTN, seizure, HLD came in complaining of generalized chest pain and shortness of breath for the past 3 days patient also is complaining of left paraspinal muscle pain. possble chf excerebation(HF with reduced EF): Possible due to missed home medications. I&O monitoring, daily weights Lasix 20 mg IV b.i.d. Medical reconciliation still pending. Back pain paraspinal: Has history of DJD spine Added lidocaine patch, Tylenol, may add muscle relaxer once medical reconciliation completed. medical reconcillation still pending Type 2 diabetes mellitus. Blood glucose checks before meals and bedtime. Diabetic diet. Continue Lantus, sitagliptin and insulin sliding scale. Essential hypertension. Continue lisinopril. Seizure disorder. Continue Keppra. Hyperlipidemia. Continue atorvastatin and ezetimibe. Depression. Continue Cymbalta and amitriptyline. DVT prophylaxis: lovenox subcut Code status: Full Patient will admitted for observation stay: For CHF exacerbation with reduced EF-need IV Lasix, renal function electrolyte monitoring. If does not improve then may need cardiology evaluation Above management discussed with the patient and her family with the help of card grader in detail length, time spent 70 minute, patient understand and in agreement with the above plan, patient full code. Quality Stroke Does the patient have a stroke diagnosis?: No VTE Prior VTE?: No VTE Risk Level:: Medical - moderate - high VTE Device Contraindication: N/A - Device Ordered VTE Drug Contraindication: N/A - Med Ordered
--- NOTE | 2023-11-22 20:02 | PHA.MEDREC ---
Pharmacy Consult ? Medication Reconciliation Pharmacy has completed the medication reconciliation. Unable to speak with patient, tried calling daughter but no answer. Med rec completed via claim history. Will leave a note for the AM pharmacist to call [facility] to get a med list.
[2023-11-22] MEDS: Enoxaparin Sodium 40 MG/0.4 ML SYRINGE SUBCUT (21:00)
[2023-11-22] MEDS: Acetaminophen 325 MG TABLET 975 MG PO (21:00)
[2023-11-22] MEDS: Furosemide 20 MG/2 ML VIAL IVPUSH (21:18)
[2023-11-22 21:26] LABS: Appearance Urine Clear; Color Urine Yellow; Glucose Urine UA Negative (Negative); Leukocyte Esterase Urine Trace (Negative); Nitrite Urine Negative (Negative); PH 5.5 (5.0-9.0); Specific Gravity - Urine 1.015 (1.005-1.025); UMIC TRIGGER UACC YES; Urine Blood Negative (Negative); Urine Ketones Negative (Negative); Urine Protein 100 (2+) mg/dL (Neg-Trace)
[2023-11-22 21:45] LABS: Bacteria Urine Trace (None Seen); Hyaline Casts Urine 0-2 /LPF (0-2); RBC Urine 0-2 /HPF (0-2); Squamous Epithelial Cell Urine 0-2 /HPF (0-2); WBC Urine 0-5 /HPF (0-5)
[2023-11-22 22:10] LABS: Glucose, Whole Blood 330 mg/dL (60-115)
--- NOTE | 2023-11-22 22:12 | PC.NURSE ---
POC glucose 330 per pt med rec on lispro and gonsalo Ramos notifieed via [employer].
[2023-11-23] VITALS (13 sets, daily range): BP systolic 117–180; BP diastolic 58–78; PULSE 81–96; RESP 16–20; TEMP 36.2–36.9; O2SAT 84–96
[2023-11-23] MEDS: 0.9 % Sodium Chloride Flush 3 ML SYRINGE IVFLUSH ×4 (00:17→22:44)
--- NOTE | 2023-11-23 01:04 | PC.NURSE ---
pt resting quietly with eyes closed, breathing even and unlabored. no apparent distress noted. call elder w/in reach
[2023-11-23 06:11] LABS: Glucose, Whole Blood 214 mg/dL (60-115)
[2023-11-23 07:29] LABS: Glucose, Whole Blood 220 mg/dL (60-115)
--- NOTE | 2023-11-23 09:33 | PHA.MEDREC ---
Pharmacy Consult ? Medication Reconciliation Pharmacy has completed the medication reconciliation. got list from [facility]. Updated list. She is on Lantus BID - 45 unit in AM and 25 units in PM. List has flonase prn, carafate at bedtime, lidocaine patches, metamucil prn, and naproxyn prn. Provider notified.
[2023-11-23] MEDS: Aspirin Enteric Coated 81 MG TABLET.DR PO (10:03)
[2023-11-23] MEDS: DULoxetine HCl 30 MG CAPSULE.DR PO (10:03)
[2023-11-23] MEDS: SITagliptin Phosphate 100 MG TABLET PO (10:03)
[2023-11-23] MEDS: levETIRAcetam 1,000 MG TABLET 2000 MG PO ×2 (10:03→22:40)
[2023-11-23] MEDS: Ezetimibe 10 MG TABLET PO (10:03)
[2023-11-23] MEDS: Furosemide 20 MG/2 ML VIAL IVPUSH ×2 (10:07→22:40)
[2023-11-23] MEDS: lisinopriL 40 MG TABLET PO (10:09)
[2023-11-23] MEDS: hydroCHLOROthiazide 12.5 MG TABLET PO (10:09)
[2023-11-23] MEDS: amLODIPine Besylate 5 MG TABLET PO (10:09)
[2023-11-23] MEDS: carvediloL 6.25 MG TABLET PO ×2 (10:10→22:41)
[2023-11-23] MEDS: Acetaminophen 325 MG TABLET 975 MG PO ×3 (10:10→22:39)
[2023-11-23] MEDS: Lidocaine 4 % Patch ADH..PATCH 1 PATCH TRANSDERMA (10:13)
--- NOTE | 2023-11-23 10:13 | PC.NURSE ---
lidoderm patch applied to lower back.
[2023-11-23 10:43] LABS: Anion Gap 15 (12-20); Blood Urea Nitrogen 16 mg/dL (9-16); Calcium 9.1 mg/dL (8.4-10.2); Carbon Dioxide 27 mmol/L (22-29); Chloride 101 mmol/L (96-108); Creatinine Clr Calc Pharmacy 66.7; Estimated Glomerular Filt Rate > 60; Sodium 139 mmol/L (135-145)
[2023-11-23 10:44] LABS: Glucose Random 357 mg/dL (60-115)
[2023-11-23] MEDS: Insulin Glargine,Hum.rec.anlog 100 UNIT/ML 10 ML VIAL 45 UNIT SUBCUT (12:11)
[2023-11-23 12:20] LABS: Glucose, Whole Blood 319 mg/dL (60-115)
[2023-11-23] MEDS: Amitriptyline HCl 10 MG TABLET 40 MG PO (13:14)
[2023-11-23] MEDS: Insulin Lispro 100 UNIT/ML 3 ML VIAL SUBCUT ×2 (13:14→22:41)
[2023-11-23] MEDS: Psyllium seed 3.7 GM PACKET PO (13:15)
--- NOTE | 2023-11-23 16:38 | HO.PM.IMPN ---
Subjective Subjective Date of Service: 11/23/23 Interval History: ahrf sec to chf excerebation Review of Systems sob seems similar ,hypoxic with minimal excersion patient says she urinated a lot,need to moniter closely i/o. Physical Exam Vital Signs: Vital Signs: Last Vital Signs Temp 98.4 F 11/23/23 11:33 Pulse 85 11/23/23 11:33 Resp 18 11/23/23 11:33 BP 180/72 H 11/23/23 10:18 Pulse Ox 93 11/23/23 11:33 O2 Del Method Room Air 11/23/23 11:33 BMI result Body Mass Index 30.2 Appearance: Alert.? Oriented X3.? some sob cvs: rrr, [id number]. res: clear to auscultation ,no rhonchii or wheezing abd: no rebound or guarding ,nt, bs present. ext pulses present , no cyanosis ,leg edema 1+. neuro: axo3 , nonfocal. Objective Data Active Medications Acetaminophen (Acetaminophen 325 Mg Tablet) 975 mg PO TID [facility] Last Admin: 11/23/23 10:10 Dose: 975 mg Documented By: STEVE Amitriptyline HCl (Amitriptyline Hcl 10 Mg Tablet) 40 mg PO DAILY [facility] Last Admin: 11/23/23 13:14 Dose: 40 mg Documented By: STEVE Amlodipine Besylate (Amlodipine Besylate 5 Mg Tablet) 5 mg PO DAILY [facility]; Protocol Last Admin: 11/23/23 10:09 Dose: 5 mg Documented By: STEVE Aspirin (Aspirin Enteric Coated 81 Mg Tablet.) 81 mg PO DAILY [facility] Last Admin: 11/23/23 10:03 Dose: 81 mg Documented By: STEVE Atorvastatin Calcium (Atorvastatin Calcium 80 Mg Tablet) 80 mg PO BEDTIME [facility] Calcium Carbonate (Calcium Carbonate 750 Mg Tab.Chew) 750 mg PO Q6H PRN PRN Reason: Heartburn Carvedilol (Carvedilol 6.25 Mg Tablet) 6.25 mg PO BID [facility]; Protocol Last Admin: 11/23/23 10:10 Dose: 6.25 mg Documented By: STEVE Cyclobenzaprine HCl (Cyclobenzaprine Hcl 10 Mg Tablet) 10 mg PO DAILY PRN PRN Reason: muscle spasm Docusate Sodium (Docusate Sodium 100 Mg Capsule) 100 mg PO BID PRN PRN Reason: for constipation Duloxetine HCl (Duloxetine Hcl 30 Mg Capsule.Dr) 30 mg PO DAILY [facility] Last Admin: 11/23/23 10:03 Dose: 30 mg Documented By: STEVE Ezetimibe (Ezetimibe 10 Mg Tablet) 10 mg PO DAILY [facility] Last Admin: 11/23/23 10:03 Dose: 10 mg Documented By: STEVE Enoxaparin Sodium (Enoxaparin Sodium 40 Mg/0.4 Ml Syringe) 40 mg SUBCUT Q24H [facility] Last Admin: 11/22/23 21:00 Dose: 40 mg Documented By: SHARMILA Furosemide (Furosemide 20 Mg/2 Ml Vial) 20 mg IVPUSH BID [facility]; Protocol Last Admin: 11/23/23 10:07 Dose: 20 mg Documented By: STEVE Glucose (Glucose Gel 15 Gm Gel..Gram.) 15 gm PO Q15M PRN; Protocol PRN Reason: per Hypoglycemia Standing Ord. Glucose (Glucose Gel 15 Gm Gel..Gram.) 15 gm PO Q15M PRN; Protocol PRN Reason: per Hypoglycemia Standing Ord. Hydrochlorothiazide (Hydrochlorothiazide 12.5 Mg Tablet) 12.5 mg PO DAILY [facility]; Protocol Last Admin: 11/23/23 10:09 Dose: 12.5 mg Documented By: STEVE Dextrose (D10) 250 mls @ 750 mls/hr IV Q15M PRN; Protocol PRN Reason: per Hypoglycemia Standing Ord. Dextrose (D10) 250 mls @ 750 mls/hr IV Q15M PRN; Protocol PRN Reason: per Hypoglycemia Standing Ord. Insulin Glargine (Insulin Glargine,Hum.Rec.Anlog 100 Unit/Ml 10 Ml Vial) 48 unit SUBCUT BEDTIME [facility] Insulin Glargine (Insulin Glargine,Hum.Rec.Anlog 100 Unit/Ml 10 Ml Vial) 45 unit SUBCUT DAILY [facility] Last Admin: 11/23/23 12:11 Dose: 45 unit Documented By: STEVE Insulin Human Lispro (Insulin Lispro 100 Unit/Ml 3 Ml Vial) 0 unit SUBCUT QIDACHS [facility]; Protocol Last Admin: 11/23/23 13:14 Dose: 8 unit Documented By: STEVE Ketorolac Tromethamine (Ketorolac Tromethamine 0.5% Op 5 Ml Drops) 1 drop EYE-BOTH TID PRN PRN Reason: Allergy Symptoms Lactulose (Lactulose 20 Gm/30 Ml Solution) 20 gm PO BID [facility] Last Admin: 11/23/23 10:14 Dose: Not Given Documented By: STEVE Non-Admin Reason: Patient Refused Levetiracetam (Levetiracetam 1,000 Mg Tablet) 2,000 mg PO BID [facility] Last Admin: 11/23/23 10:03 Dose: 2,000 mg Documented By: STEVE Lidocaine (Lidocaine 4 % Patch Adh..Patch) 1 patch TRANSDERMA DAILY [facility]; Protocol Last Admin: 11/23/23 10:13 Dose: 1 patch Documented By: STEVE Lidocaine (Lidocaine 4 % Patch Adh..Patch) 1 patch TRANSDERMA BID [facility] Lisinopril (Lisinopril 40 Mg Tablet) 40 mg PO DAILY [facility]; Protocol Last Admin: 11/23/23 10:09 Dose: 40 mg Documented By: STEVE Loratadine (Loratadine 10 Mg Tablet) 10 mg PO DAILY PRN PRN Reason: allergy symptoms Magnesium Hydroxide (Milk Of Magnesia 30 Ml Oral.Susp) 30 ml PO DAILY PRN PRN Reason: Constipation Melatonin (Melatonin 3 Mg Tablet) 6 mg PO BEDTIME PRN PRN Reason: Insomnia Naproxen (Naproxen 500 Mg Tablet) 15 mg PO BID PRN PRN Reason: Pain Non-Formulary Medication (Canagliflozin [Invokana]) 300 mg PO DAILY [facility] Omeprazole (Omeprazole 20 Mg Capsule.Dr) 20 mg PO BID@0630,1630 [facility] Polyethylene Glycol (Polyethylene Glycol 3350 17 Gm Powd.Pack) 17 gm PO DAILY PRN PRN Reason: Constipation Psyllium Hydrophilic Mucilloid (Psyllium Seed 3.7 Gm Packet) 3.7 gm PO DAILY [facility] Last Admin: 11/23/23 13:15 Dose: 3.7 gm Documented By: STEVE Sitagliptin Phosphate (Sitagliptin Phosphate 100 Mg Tablet) 100 mg PO DAILY [facility] Last Admin: 11/23/23 10:03 Dose: 100 mg Documented By: STEVE Sodium Chloride (0.9 % Sodium Chloride Flush 3 Ml Syringe) 3 ml IVFLUSH QSHIFT [facility] Last Admin: 11/23/23 10:05 Dose: 3 ml Documented By: STEVE Sucralfate (Sucralfate Oral Suspension 1 Gm/10 Ml Oral.Susp) 1 gm PO BEDTIME [facility] Labs 11/22/23 12:29 11/23/23 10:05 Labs: Laboratory Results - last 24 hr 11/22/23 11/22/23 11/23/23 21:14 22:06 06:08 Anion Gap Estim Creat Clear Calc Estimated GFR POC Glucose 330 H 214 H Random Glucose Calcium Urine Color Yellow Urine Appearance Clear Urine pH 5.5 Ur Specific Gomer 1.015 Urine Protein 100 (2+) H Urine Glucose (UA) Negative Urine Ketones Negative Urine Blood Negative Urine Nitrite Negative Ur Leukocyte Esterase Trace H Urine RBC 0-2 Urine WBC 0-5 Ur Squamous Epith Cells 0-2 Urine Bacteria Trace Hyaline Casts 0-2 11/23/23 11/23/23 11/23/23 07:20 10:05 11:38 Anion Gap 15 Estim Creat Clear Calc 66.7 Estimated GFR > 60 POC Glucose 220 H 319 H Random Glucose 357 H* Calcium 9.1 Urine Color Urine Appearance Urine pH Ur Specific [place] Urine Protein Urine Glucose (UA) Urine Ketones Urine Blood Urine Nitrite Ur Leukocyte Esterase Urine RBC Urine WBC Ur Squamous Epith Cells Urine Bacteria Hyaline Casts Assessment and Plan (1) Shortness of breath: Status: Acute Plan 58-year-old female with pertinent medical history T2 DM, HTN, seizure, HLD came in complaining of generalized chest pain and shortness of breath for the past 3 days patient also is complaining of left paraspinal muscle pain. AHRF sec Possible chf excerebation(HF with reduced EF): Possible due to missed home medications. I&O monitoring, daily weights Lasix 20 mg IV b.i.d. Back pain paraspinal: Has history of DJD spine Added lidocaine patch, Tylenol, may add muscle relaxer once medical reconciliation completed. Type 2 diabetes mellitus with hyperglycemia . Blood glucose checks before meals and bedtime. Diabetic diet. started Lantus, sitagliptin and insulin sliding scale. Essential hypertension. Continue lisinopril. Seizure disorder. Continue Keppra. Hyperlipidemia. Continue atorvastatin and ezetimibe. Depression. Continue Cymbalta and amitriptyline. DVT prophylaxis: lovenox subcut Code status: Full Patient will admitted for observation stay: acute hypoxemic respiratory failure sec CHF exacerbation with reduced EF-need IV Lasix, renal function electrolyte monitoring,oxygen need. If does not improve then may need cardiology evaluation Quality Stroke Does the patient have a stroke diagnosis?: No VTE Prior VTE?: No VTE Risk Level:: Medical - moderate - high VTE Device Contraindication: N/A - Device Ordered VTE Drug Contraindication: N/A - Med Ordered
[2023-11-23] MEDS: Omeprazole 20 MG CAPSULE.DR PO (17:34)
[2023-11-23 17:47] LABS: Glucose, Whole Blood 197 mg/dL (60-115)
[2023-11-23 20:45] LABS: Glucose, Whole Blood 165 mg/dL (60-115)
[2023-11-23 21:52] LABS: Glucose, Whole Blood 196 mg/dL (60-115)
[2023-11-23] MEDS: Sucralfate Oral Suspension 1 GM/10 ML ORAL.SUSP PO (22:39)
[2023-11-23] MEDS: Atorvastatin Calcium 80 MG TABLET PO (22:40)
[2023-11-23] MEDS: Insulin Glargine,Hum.rec.anlog 100 UNIT/ML 10 ML VIAL 20 UNIT SUBCUT (22:41)
[2023-11-23] MEDS: Enoxaparin Sodium 40 MG/0.4 ML SYRINGE SUBCUT (22:42)
[2023-11-24 04:00] VITALS: BP 108/57; PULSE 76; RESP 20; TEMP 36.1; O2SAT 97
[2023-11-24] MEDS: Omeprazole 20 MG CAPSULE.DR PO (05:55)
[2023-11-24 07:08] LABS: Glucose, Whole Blood 115 mg/dL (60-115)
[2023-11-24 08:00] VITALS: BP 124/63; PULSE 78; RESP 20; TEMP 36.5; O2SAT 98
[2023-11-24] MEDS: Acetaminophen 325 MG TABLET 975 MG PO (10:19)
[2023-11-24] MEDS: Insulin Glargine,Hum.rec.anlog 100 UNIT/ML 10 ML VIAL 45 UNIT SUBCUT (10:19)
[2023-11-24] MEDS: Lidocaine 4 % Patch ADH..PATCH 1 PATCH TRANSDERMA ×2 (10:20)
[2023-11-24] MEDS: Psyllium seed 3.7 GM PACKET PO (10:20)
[2023-11-24] MEDS: DULoxetine HCl 30 MG CAPSULE.DR PO (10:21)
[2023-11-24] MEDS: hydroCHLOROthiazide 12.5 MG TABLET PO (10:21)
[2023-11-24] MEDS: Aspirin Enteric Coated 81 MG TABLET.DR PO (10:21)
[2023-11-24] MEDS: SITagliptin Phosphate 100 MG TABLET PO (10:21)
[2023-11-24] MEDS: levETIRAcetam 1,000 MG TABLET 2000 MG PO (10:21)
[2023-11-24] MEDS: Furosemide 20 MG/2 ML VIAL IVPUSH (10:22)
[2023-11-24] MEDS: carvediloL 6.25 MG TABLET PO (10:22)
[2023-11-24] MEDS: lisinopriL 40 MG TABLET PO (10:22)
[2023-11-24] MEDS: amLODIPine Besylate 5 MG TABLET PO (10:22)
[2023-11-24] MEDS: Ezetimibe 10 MG TABLET PO (10:22)
[2023-11-24] MEDS: 0.9 % Sodium Chloride Flush 3 ML SYRINGE IVFLUSH (10:23)
[2023-11-24] MEDS: Amitriptyline HCl 10 MG TABLET 40 MG PO (10:24)
[2023-11-24 10:30] VITALS: BP 163/74
[2023-11-24 11:13] LABS: Glucose, Whole Blood 209 mg/dL (60-115)
[2023-11-24] MEDS: Insulin Lispro 100 UNIT/ML 3 ML VIAL SUBCUT (11:24)
--- NOTE | 2023-11-24 11:48 | PM.DS ---
DS: Providers Provider Date of Service: 11/24/23 Date of admission: 11/23/23 16:40 Date of discharge: 11/24/23 Primary care physician: FLORIDALMA Bullard Attending physician on discharge: Shana Hedrick Discharging clinician: Shana Hedrick DS: Diagnosis Discharge Diagnosis (1) Shortness of breath: Status: Acute DS: Summary Hospital Course Hospital Course: 58-year-old female with pertinent medical history T2 DM, HTN, seizure, HLD came in complaining of generalized chest pain and shortness of breath for the past 3 days patient also is complaining of left paraspinal muscle pain for the 2 days -she takes pain medications as well as Lasix at home and muscle relaxers which she missed for 3-4 days due to her [facility] is on vacation, she has medications in the lock box. Subsequently patient started having these symptoms and decided come to the hospital, in hospital-patient's chest CT scan was done which shows possible congestive changes, patient also has some leg edema, she is not aware if she gained any weight. Her BNP is elevated 370 which is above her baseline CT abdomen was also done which seems to be negative except above CT chest findings. Denies any new complaint of chest pain or abdominal pain or fever or chills or nausea or vomiting Denies any cough Denies any weakness or numbness. Lab imaging EKG reviewed: BUN 17, creatinine sitter 0.7 CBC seems fine, EKG NSR, no new findings. CT/CT chest wo IV con: New bilateral pleural effusions with new increased interstitial markings at the lung bases and cardiomegaly. Findings are suggestive of CHF. Patient received Lasix, amlodipine, Tylenol, hydrochlorothiazide,, Coreg in ED and admission requested for CHF exacerbation. Hospital course: Patient was admitted to the hospital because of acute hypoxemic respiratory failure secondary to CHF exacerbation (which related to missing her medications including diuretics at home.): Had elevated BNP, 1+ edema, CT chest showed mild congestive changes- Patient was started on IV diuresis, patient diuresed well, hypoxemic resolved, walking fine without shortness of breath and sats are above 90s. Patient will be going home with her home medications, CHF education given, if weight gain 2 lb or more in a week may need to get her diuretics adjusted outpatient. Patient also had mild back pain- ct abd -negative except changes in ct chest -history of djd, pain seems to be improved with her muscle relaxer and pain medications, continue that. Further management out patiently. plan: continue home diuretics ,CHF education given, if weight gain 2 lb or more in a week may need to get her diuretics adjusted outpatient. continue home muscle relaxant and pain medications. case aide also helping her with lock box medication situation. Above management discussed with the patient in detail length he understand and in agreement with the above plan, time spent 50 minutes and 50% time spent on counseling. Time Attestation Total time managing care of this patient today: 30 mintues. Discharge Coordination Time (in mins): 30min Quality: Safe Use of Opioids Does Pt have an Active Cancer Diagnosis on the Problem List?: No Quality: Stroke Does the patient have a stroke diagnosis?: No Physical Exam Vital Signs: Vital Signs: Last Vital Signs Temp 97.7 F 11/24/23 08:00 Pulse 78 11/24/23 08:00 Resp 20 11/24/23 08:00 BP 163/74 H 11/24/23 10:30 Pulse Ox 98 11/24/23 08:00 O2 Del Method Nasal Cannula 11/24/23 08:00 O2 Flow Rate 2 11/24/23 08:00 BMI result Body Mass Index 30.2 Appearance: Alert.? Oriented X3.? some sob cvs: rrr, [id number]. res: clear to auscultation ,no rhonchii or wheezing abd: no rebound or guarding ,nt, bs present. ext pulses present , no cyanosis ,no edema . neuro: axo3 , nonfocal. DS: Data Data Completed and Pending Labs on day of discharge: Laboratory Results - last 24 hr 11/23/23 11/23/23 11/23/23 11:38 17:25 20:19 POC Glucose 319 H 197 H 165 H 11/23/23 11/24/23 11/24/23 21:48 07:04 11:02 POC Glucose 196 H 115 209 H Imaging Chest x-ray: Radiologist's impression: ITS Impressions Chest CT 11/22/23 12:20 IMPRESSION: New bilateral pleural effusions with new increased interstitial markings at the lung bases and cardiomegaly. Findings are suggestive of CHF. Fleischner guidelines were followed. Abdomen/Pelvis CT 11/22/23 16:08 IMPRESSION: 1. Exam limited by motion artifact and lack of IV contrast. 2. No CT evidence of kidney stones or hydronephrosis. 3. Diverticulosis without evidence of acute diverticulitis. 4. Bilateral small pleural effusions, mild infiltrate/interstitial opacification and interstitial interlobular edema at lung bases bilaterally described on the CT chest performed the same day. Discharge Plan Discharge Anticipated Discharge Date/Time: 11/24/23 11:41 Patient Disposition: Home Health Service Discharge Diagnosis: ahrf sec to chf excerebation Referrals: Melissa [Outside] - 1 Week Erica Rivera FNP [Primary Care Provider] - 1 Week Discharge Medications: Continued omeprazole 20 mg capsule,delayed release(DR/EC) 20 mg PO BID@0630,1630 Qty: 180 3RF (DME) FreeStyle Guerda 2 [place] Misc See Rx Instructions .Route Qty: 1 0RF Rx Instructions: As directed acetaminophen 325 mg tablet 650 mg PO Q6H PRN (Reason: Pain) Qty: 90 0RF ezetimibe 10 mg tablet 10 mg PO DAILY Qty: 90 1RF Januvia 100 mg tablet 100 mg PO DAILY Qty: 90 0RF aspirin 81 mg tablet,delayed release (DR/EC) 81 mg PO DAILY Qty: 90 0RF amitriptyline 10 mg tablet 40 mg PO DAILY 90 Days Qty: 360 0RF hydrochlorothiazide 12.5 mg tablet 12.5 mg PO DAILY 90 Days Qty: 90 1RF (DME) FreeStyle Guerda 2 Sensor Kit See Rx Instructions .Route Qty: 1 3RF Rx Instructions: As directed carvedilol 6.25 mg tablet 6.25 mg PO BID Qty: 60 0RF Rx Instructions: must administer with a meal/food amlodipine 5 mg tablet 5 mg PO DAILY 90 Days Qty: 90 1RF atorvastatin 80 mg tablet 80 mg PO BEDTIME Qty: 90 1RF cetirizine [Zyrtec] 10 mg tablet 10 mg PO DAILY PRN (Reason: allergy symptoms) Qty: 90 0RF cyclobenzaprine 10 mg tablet 10 mg PO DAILY PRN (Reason: muscle spasm) 7 Days Qty: 7 0RF docusate sodium 100 mg capsule 100 mg PO BID PRN (Reason: for constipation) Qty: 60 2RF meloxicam 15 mg tablet 15 mg PO DAILY PRN (Reason: Pain) Qty: 30 0RF duloxetine 30 mg capsule,delayed release(DR/EC) 30 mg PO DAILY Qty: 90 0RF levetiracetam 1,000 mg tablet 2,000 mg PO BID 30 Days Qty: 120 0RF Invokana 300 mg tablet 300 mg PO DAILY insulin glargine [Lantus Solostar U-100 Insulin] 100 unit/mL (3 mL) insulin pen 25 unit subcut QPM lactulose 20 gram/30 mL solution 20 g PO BID Qty: 1200 0RF insulin lispro 100 unit/mL insulin pen See Protocol subcut TIDAC Protocol: Insulin Correction Scale Less than or equal to 110 ---- Give (units): 0 111 to 150 Give (units): 0 151 to 200 Give (units): 2 201 to 250 Give (units): 4 251 to 300 Give (units): 6 301 to 350 Give (units): 8 Greater than 350 Give (units): 10 Call MD if Blood Glucose > : 350 Rx Instructions: 5 units if BG <250, 10 units if Bg > 250 Metamucil 3.4 gram/5.4 gram powder 1 tsp PO DAILY PRN (Reason: Constipation) Rx Instructions: mix into at least 8 oz of water or juice before administering sucralfate [Carafate] 100 mg/mL Suspension 10 ml PO BEDTIME Rx Instructions: before meals lidocaine 5 % Adhesive Patch,Medicated 1 patch TOPICAL BID Rx Instructions: leave on most painful area for up to 12 hrs fluticasone propionate 50 mcg/actuation [place],Suspension 1 spray INTRANASAL DAILY PRN (Reason: allergies) Rx Instructions: administer into each nostril naproxen 500 mg Tablet 500 mg PO BID PRN (Reason: Pain) insulin glargine [Lantus Solostar U-100 Insulin] 100 unit/mL (3 mL) insulin pen 45 unit subcut QAM furosemide 20 mg tablet 20 mg PO DAILY 90 Days Qty: 90 1RF Protocol: Hold for SBP< HOLD for SBP < : 90 lisinopril 40 mg tablet 40 mg PO DAILY Qty: 90 1RF Discharge Orders: Discharge Order (Routine); Ordered 11/24/23 Ordered By: Shana Hedrick Diet: Advance to usual diet Activity on Discharge: As tolerated Stand Alone Forms: Patient Portal Discharge page Print Language: Icelandic Care Plan Goals: Patient was admitted to the hospital because of acute hypoxemic respiratory failure secondary to CHF exacerbation (which related to missing her medications including diuretics at home.): Had elevated BNP, 1+ edema- Patient was started on IV diuresis, patient diuresed well, hypoxemic resolved, walking fine without shortness of breath and sats are above 90s. Patient will be going home with her home medications, CHF education given, if weight gain 2 lb or more in a week may need to get her diuretics adjusted outpatient. Further management out patiently. Health Concerns: as above. Plan of Treatment: as above. Assessment: as above.
--- NOTE | 2023-11-24 11:50 | MHC.CM.PN ---
Patient has been medically cleared for dc to home today, with services. Patient is active with [facility], who has been made aware of today's dc and Patient's need for assist with med management (lock box).
== END 2023-11-24 12:33 | disposition home health service (06) | DRG 194 ==
LOC: HO.ED 17:57 → HO.EDOVER 18:53 → HO.IMC 11-23 18:16
PROVIDERS: Physician Assistant; Admitting Provider Internal Medicine; Emergency Provider Emergency Medicine; PCP Nurse Practitioner Family; Visit Provider Internal Medicine
DX: I11.0 Hypertensive heart disease with heart failure (principal); J96.01 Acute respiratory failure with hypoxia; G40.909 Epilepsy, unspecified, not intractable, without status epilepticus; F32.A Depression, unspecified; E78.5 Hyperlipidemia, unspecified; I50.23 Acute on chronic systolic (congestive) heart failure; E11.9 Type 2 diabetes mellitus without complications; Z79.4 Long term (current) use of insulin; Z79.82 Long term (current) use of aspirin; Z79.899 Other long term (current) drug therapy
CPT/HCPCS: 36415; 71250; 74176; 80048; 80053; 81001; 82947; 83690; 83880; 84484; 85025; 85610; 85730; 93005; 97161; 99285; J1650; J1940

== ENCOUNTER → 2023-11-22 18:40 | Outpatient (BNV) | payer OTHER, SELFPAY | PROVIDERS: Admitting Provider Internal Medicine; Emergency Provider Emergency Medicine; PCP Nurse Practitioner Family; Visit Provider Internal Medicine | DX: I50.22 Chronic systolic (congestive) heart failure (principal); J96.01 Acute respiratory failure with hypoxia | CPT/HCPCS: 99222; 99232; 99239 ==

== ENCOUNTER 2023-12-18 15:39 | Emergency (ER) | payer OTHER, SELFPAY ==
[2023-12-18 15:45] VITALS: BP 173/83; PULSE 91; RESP 14; TEMP 36.6; O2SAT 96; BMI 30.1
--- NOTE | 2023-12-18 15:46 | ECG_ITS ---
Test Reason : CHEST PAIN Blood Pressure : / mmHG Vent. Rate : 089 BPM Atrial Rate : 089 BPM P-R Int : 160 ms QRS Dur : 084 ms QT Int : 362 ms P-R-T Axes : 020 -09 014 degrees QTc Int : 440 ms Normal sinus rhythm Minimal voltage criteria for LVH, may be normal variant ( R in aVL ) Borderline ECG When compared with ECG of 22-NOV-2023 12:17, No significant change was found Referred By: Generic ED Physician Electronically Signed By:ANGELES BRYAN
[2023-12-18 16:03] LABS: Glucose, Whole Blood 229 mg/dL (60-115)
[2023-12-18 16:38] LABS: MANUAL DIFF FLAG NO
[2023-12-18 16:39] LABS: Basophils Absolute Auto 0.1 X10*3/uL (0.0-0.2); Basophils Percent Auto 0.7 % (0-2); Eosinophils Absolute Auto 0.2 X10*3/uL (0.0-0.4); Eosinophils Percent Auto 2.5 % (0-4); Hematocrit 34.4 % (37.0-47.0); Hemoglobin 11.2 g/dl (12.0-16.0); Imm Gran Abs Auto 0.03 X10*3/uL (0.00-0.03); Imm Gran Pct Auto 0.4 % (0.0-0.4); Lymphocytes Absolute Auto 1.7 X10*3/uL (1.2-4.9); Lymphocytes Percent Auto 21.5 % (20-40); Mean Corpuscular HGB Conc 32.6 g/dl (31.0-35.0); Mean Corpuscular Hemoglobin 28.9 pg (27.0-33.0); Mean Corpuscular Volume 88.9 fL (80.0-98.0); Mean Platelet Volume 9.5 fL (9.4-12.3); Monocytes Absolute Auto 0.5 X10*3/uL (0.1-1.2); Monocytes Percent Auto 6.3 % (2-11); Neutrophils Absolute Auto 5.6 x10*3/uL (2.0-8.3); Neutrophils Percent Auto 68.6 % (45-73); Platelet Count 278 X10*3/uL (160-400); Red Blood Count 3.87 X10*6/uL (4.20-5.50); Red Cell Distribution Width 12.6 % (11.0-16.0); White Blood Count 8.1 X10*3/uL (4.8-10.8)
[2023-12-18 16:55] LABS: Appearance Urine Clear; Color Urine Yellow; Glucose Urine UA 500 mg/dL (Negative); Leukocyte Esterase Urine Trace (Negative); Nitrite Urine Negative (Negative); Specific Gravity - Urine <= 1.005 (1.005-1.025); UMIC TRIGGER UACC YES; Urine Blood Negative (Negative); Urine Ketones Negative (Negative); Urine Protein 30 (1+) mg/dL (Neg-Trace)
[2023-12-18 16:56] LABS: Alanine Aminotransferase 10 U/L (0-31); Albumin Level 3.4 g/dL (3.5-5.0); Alkaline Phosphatase 125 U/L (39-117); Anion Gap 13 (12-20); Aspartate Amino Transferase 10 U/L (5-31); Bilirubin Total 0.3 mg/dL (0.0-1.0); Blood Urea Nitrogen 14 mg/dL (9-16); Calcium 9.1 mg/dL (8.4-10.2); Carbon Dioxide 26 mmol/L (22-29); Chloride 105 mmol/L (96-108); Creatinine Clr Calc Pharmacy 81.9; Estimated Glomerular Filt Rate > 60; Glucose Random 224 mg/dL (60-115); Potassium 4.3 mmol/L (3.3-5.1); Sodium 140 mmol/L (135-145); Total Protein 6.7 g/dL (6.5-8.0)
[2023-12-18 17:04] LABS: Troponin-I High Sensitivity 5.3 ng/L (<3.5-17.0)
--- NOTE | 2023-12-18 17:50 | ED_ITS ---
HPI - Chest Pain General Chief Complaint: Chest Pain Stated Complaint: chest pain,sob Time Seen by Provider: 12/18/23 17:48 Source: patient Mode of arrival: EMS Limitations: no limitations History of Present Illness ED Provider: xochilt SANCHEZ narrative: Patient with history of anxiety depression type 2 diabetes frequent chest pain stress test was neg 08/03 comes here for feeling weak start little short of breath chest discomfort was given 324 mg aspirin by EMS blood sugar was 51 had cracker cheese with juice POC on arrival was 209, patient did not eat much since morning patient had cardiogram and lab workup done prior to my evaluation which is stable at the time of examination patient is feeling much better lactic POC was 156 Related Data Home Medications ?Medication ?Instructions ?Recorded ?Confirmed insulin glargine 100 unit/mL (3 25 unit subcut QPM 08/07/23 11/23/23 mL) subcutaneous pen (Lantus Solostar U-100 Insulin) insulin lispro 100 unit/mL See Protocol subcut TIDAC 11/22/23 11/23/23 subcutaneous pen psyllium husk 3.4 gram/5.4 gram 1 tsp PO DAILY PRN Constipation 11/22/23 11/23/23 oral powder (Metamucil) fluticasone propionate 50 1 spray intranasal DAILY PRN 11/23/23 11/23/23 mcg/actuation nasal allergies spray,suspension lidocaine 5 % topical patch 1 patch topical BID 11/23/23 11/23/23 naproxen 500 mg tablet 500 mg PO BID PRN Pain 11/23/23 11/23/23 sucralfate 100 mg/mL oral 10 ml PO BEDTIME 11/23/23 11/23/23 suspension (Carafate) Previous Rx's ?Medication ?Instructions ?Recorded omeprazole 20 mg capsule,delayed 20 mg PO BID@0630,1630 #180 caps 03/30/23 release flash glucose scanning reader #1 ea 06/05/23 (FreeStyle Guerda 2 [place]) acetaminophen 325 mg tablet 650 mg (2 x 325 mg) PO Q6H PRN 07/06/23 Pain #90 tabs ezetimibe 10 mg tablet 10 mg PO DAILY #90 tabs 08/01/23 furosemide 20 mg tablet 20 mg PO DAILY 90 days #90 tabs 09/01/23 lisinopril 40 mg tablet 40 mg PO DAILY #90 tabs 09/01/23 amitriptyline 10 mg tablet 40 mg (4 x 10 mg) PO DAILY 90 days 09/05/23 #360 tabs hydrochlorothiazide 12.5 mg tablet 12.5 mg PO DAILY 90 days #90 tabs 09/12/23 lactulose 20 gram/30 mL oral 20 g (30 mL) PO BID #1,200 mL 09/14/23 solution amlodipine 5 mg tablet 5 mg PO DAILY 90 days #90 tabs 10/03/23 carvedilol 6.25 mg tablet 6.25 mg PO BID #60 tabs 10/03/23 atorvastatin 80 mg tablet 80 mg PO BEDTIME #90 tabs 10/11/23 cetirizine 10 mg tablet (Zyrtec) 10 mg PO DAILY PRN allergy 10/14/23 symptoms #90 tabs cyclobenzaprine 10 mg tablet 10 mg PO DAILY PRN muscle spasm 7 10/25/23 days #7 tabs docusate sodium 100 mg capsule 100 mg PO BID PRN for constipation 10/26/23 #60 caps meloxicam 15 mg tablet 15 mg PO DAILY PRN Pain #30 tabs 10/28/23 duloxetine 30 mg capsule,delayed 30 mg PO DAILY #90 caps 11/15/23 release flash glucose sensor (FreeStyle #1 ea 11/28/23 Guerda 2 Sensor kit) canagliflozin 300 mg tablet 300 mg PO DAILY #90 tabs 11/29/23 (Invokana) levetiracetam 1,000 mg tablet 2,000 mg (2 x 1,000 mg) PO BID 30 11/29/23 days #120 tabs sitagliptin phosphate 100 mg 100 mg PO DAILY #90 tabs 11/29/23 tablet (Januvia) aspirin 81 mg tablet,delayed 81 mg PO DAILY #90 tabs 12/11/23 release insulin glargine 100 unit/mL (3 45 unit (0.45 mL) subcut QAM #15 mL 12/11/23 mL) subcutaneous pen (Lantus Solostar U-100 Insulin) Allergies Allergy/AdvReac Type Severity Reaction Status Date / Time No Known Allergies Allergy Verified 12/18/23 15:46 Review of Systems 2 Review of Systems: Yes all other systems are reviewed and are negative PMFSH Past Medical History Medical History Encounter to establish care Diabetic retinopathy Type 2 diabetes mellitus with hyperglycemia, with long-term current use of insulin Essential hypertension Hyperlipidemia LDL goal <100 Gastroparesis Hyperlipidemia Depression Asthma Epilepsy Diabetes Hypertension Surgical History Hx of colonoscopy (~06/2018) H/O esophagogastroduodenoscopy (03/14/18) History of ankle surgery H/O section Family History Family History Mother Diabetes Father Diabetes Social History Social History Household Members: Children Housing: Apartment Do you presently have visiting nurse or other home services: Yes ([facility] - pt has locked box) Alcohol intake: never Patient Tobacco Use Status: Never used Tobacco e-Cigarette/Vaping Use: Never Used Second Hand Smoke Exposure: No Advance Directives: No Advance Directives Information Provided: No service: No Current occupational status: unemployed Cognitive needs: Yes (cane/walker) Hearing needs: No Vision needs: Yes (glasses) Physical Exam 2 Vital Signs: Vital Signs: Last Vital Signs Temp 98 F 12/18/23 15:45 Pulse 91 12/18/23 15:45 Resp 14 12/18/23 15:45 BP 173/83 H 12/18/23 15:45 Pulse Ox 96 12/18/23 15:45 O2 Del Method Room Air 12/18/23 15:45 BMI result Body Mass Index 30.1 Appearance: Alert. Oriented X3. No acute distress. Eyes: No pallor or icterus ENT: Pharynx normal. Oral Mucosa moist Neck: Normal inspection. Neck supple. CVS: Normal heart rate and rhythm. Pulses normal. Respiratory: No respiratory distress. Equal air entry bilateral, no wheezing/rales/rhonchi Abdomen: Soft and nontender. Bowel sounds are present, no mass palpable, no CVA tenderness Skin: Skin warm and dry. Normal skin color. Normal skin turgor. Extremities: No lower extremity edema. No calf tenderness Neuro: Oriented X 3. No motor deficit. Medical Decision Making Medical Decision Making MDM Narrative: Patient has atypical chest pain subarachnoid shortness of breath blood sugar of 51 improved after eating food lab workup negative for ACS with recent stress test negative discharge patient home advised to have proper meals when taking insulin Differential Diagnosis Differential Diagnoses: The differential diagnosis associated with the presentation includes Lab Data MDM Lab Attestation statement: I reviewed the patient's lab results. 12/18/23 16:32 12/18/23 16:32 Labs: Lab Results 12/18/23 12/18/23 12/18/23 Range/Units 16:00 16:32 16:49 WBC 8.1 (4.8-10.8) X10*3/uL RBC 3.87 L (4.20-5.50) X10*6/uL Hgb 11.2 L (12.0-16.0) g/dl Hct 34.4 L (37.0-47.0) % MCV 88.9 (80.0-98.0) fL MCH 28.9 (27.0-33.0) pg MCHC 32.6 (31.0-35.0) g/dl RDW 12.6 (11.0-16.0) % Plt Count 278 (160-400) X10*3/uL MPV 9.5 (9.4-12.3) fL Immature Gran % (Auto) 0.4 (0.0-0.4) % Neut % (Auto) 68.6 (45-73) % Lymph % (Auto) 21.5 (20-40) % [place] % (Auto) 6.3 (2-11) % Eos % (Auto) 2.5 (0-4) % Baso % (Auto) 0.7 (0-2) % Lymph # (Auto) 1.7 (1.2-4.9) X10*3/uL [place] # (Auto) 0.5 (0.1-1.2) X10*3/uL Eos # (Auto) 0.2 (0.0-0.4) X10*3/uL Baso # (Auto) 0.1 (0.0-0.2) X10*3/uL Abs Immat Gran (auto) 0.03 (0.00-0.03) X10*3/uL Absolute Neuts (auto) 5.6 (2.0-8.3) x10*3/uL Absolute Nucleated RBC 0.000 (0.0-0.012) X10*3/uL Nucleated RBC % (auto) 0.0 (0.0-0.2) /100WBC Sodium 140 (135-145) mmol/L Potassium 4.3 (3.3-5.1) mmol/L Chloride 105 (96-108) mmol/L Carbon Dioxide 26 (22-29) mmol/L Anion Gap 13 (12-20) BUN 14 (9-16) mg/dL Creatinine 0.83 (0.5-1.4) mg/dL Estim Creat Clear Calc 81.9 Estimated GFR > 60 POC Glucose 229 H (60-115) mg/dL Random Glucose 224 H (60-115) mg/dL Calcium 9.1 (8.4-10.2) mg/dL Total Bilirubin 0.3 (0.0-1.0) mg/dL AST 10 (5-31) U/L ALT 10 (0-31) U/L Alkaline Phosphatase 125 H (39-117) U/L Troponin I High Sens 5.3 (<3.5-17.0) ng/L Total Protein 6.7 (6.5-8.0) g/dL Albumin 3.4 L (3.5-5.0) g/dL Urine Color Yellow Urine Appearance Clear Urine pH 6.0 (5.0-9.0) Ur Specific [place] <= 1.005 (1.005-1.025) Urine Protein 30 (1+) H (Neg-Trace) mg/dL Urine Glucose (UA) 500 H (Negative) mg/dL Urine Ketones Negative (Negative) mg/dL Urine Blood Negative (Negative) Urine Nitrite Negative (Negative) Ur Leukocyte Esterase Trace H (Negative) Urine RBC 0-2 (0-2) /HPF Urine WBC 6-10 H (0-5) /HPF Ur Squamous Epith Cells 6-10 (0-2) /HPF Urine Bacteria Trace (None Seen) Hyaline Casts 0-2 (0-2) /LPF Independent Interpretation I performed an independent interpretation of an: EKG Interpretation: Normal sinus rhythm heart rate 89 beats per minute LVH normal intervals normal axis no acute ST T wave changes Discharge Plan Discharge Clinical Impression: Chest pain, Hypertension Patient Disposition: Home, Self-Care Instructions: Chest Pain (ED), Chronic Hypertension (ED) Additional Instructions: Take medications as prescribed for high blood pressure and diabetes Eat well Follow with your PCP if any concerns Prescriptions: No Action omeprazole 20 mg capsule,delayed release(DR/EC) 20 mg PO BID@0630,1630 Qty: 180 3RF (DME) FreeStyle Guerda 2 [place] Misc See Rx Instructions .Route Qty: 1 0RF Rx Instructions: As directed acetaminophen 325 mg tablet 650 mg PO Q6H PRN (Reason: Pain) Qty: 90 0RF ezetimibe 10 mg tablet 10 mg PO DAILY Qty: 90 1RF amitriptyline 10 mg tablet 40 mg PO DAILY 90 Days Qty: 360 0RF hydrochlorothiazide 12.5 mg tablet 12.5 mg PO DAILY 90 Days Qty: 90 1RF carvedilol 6.25 mg tablet 6.25 mg PO BID Qty: 60 0RF Rx Instructions: must administer with a meal/food amlodipine 5 mg tablet 5 mg PO DAILY 90 Days Qty: 90 1RF atorvastatin 80 mg tablet 80 mg PO BEDTIME Qty: 90 1RF cetirizine [Zyrtec] 10 mg tablet 10 mg PO DAILY PRN (Reason: allergy symptoms) Qty: 90 0RF cyclobenzaprine 10 mg tablet 10 mg PO DAILY PRN (Reason: muscle spasm) 7 Days Qty: 7 0RF docusate sodium 100 mg capsule 100 mg PO BID PRN (Reason: for constipation) Qty: 60 2RF meloxicam 15 mg tablet 15 mg PO DAILY PRN (Reason: Pain) Qty: 30 0RF duloxetine 30 mg capsule,delayed release(DR/EC) 30 mg PO DAILY Qty: 90 0RF (DME) FreeStyle Guerda 2 Sensor Kit See Rx Instructions .Route Qty: 1 3RF Rx Instructions: As directed Invokana 300 mg tablet 300 mg PO DAILY Qty: 90 1RF levetiracetam 1,000 mg tablet 2,000 mg PO BID 30 Days Qty: 120 0RF Januvia 100 mg tablet 100 mg PO DAILY Qty: 90 0RF aspirin 81 mg tablet,delayed release (DR/EC) 81 mg PO DAILY Qty: 90 3RF insulin glargine [Lantus Solostar U-100 Insulin] 100 unit/mL (3 mL) insulin pen 45 unit subcut QAM Qty: 15 3RF insulin glargine [Lantus Solostar U-100 Insulin] 100 unit/mL (3 mL) insulin pen 25 unit subcut QPM lactulose 20 gram/30 mL solution 20 g PO BID Qty: 1200 0RF insulin lispro 100 unit/mL insulin pen See Protocol subcut TIDAC Protocol: Insulin Correction Scale Less than or equal to 110 ---- Give (units): 0 111 to 150 Give (units): 0 151 to 200 Give (units): 2 201 to 250 Give (units): 4 251 to 300 Give (units): 6 301 to 350 Give (units): 8 Greater than 350 Give (units): 10 Call MD if Blood Glucose > : 350 Rx Instructions: 5 units if BG <250, 10 units if Bg > 250 Metamucil 3.4 gram/5.4 gram powder 1 tsp PO DAILY PRN (Reason: Constipation) Rx Instructions: mix into at least 8 oz of water or juice before administering sucralfate [Carafate] 100 mg/mL Suspension 10 ml PO BEDTIME Rx Instructions: before meals lidocaine 5 % Adhesive Patch,Medicated 1 patch TOPICAL BID Rx Instructions: leave on most painful area for up to 12 hrs fluticasone propionate 50 mcg/actuation [place],Suspension 1 spray INTRANASAL DAILY PRN (Reason: allergies) Rx Instructions: administer into each nostril naproxen 500 mg Tablet 500 mg PO BID PRN (Reason: Pain) furosemide 20 mg tablet 20 mg PO DAILY 90 Days Qty: 90 1RF Protocol: Hold for SBP< HOLD for SBP < : 90 lisinopril 40 mg tablet 40 mg PO DAILY Qty: 90 1RF Print Language: Portuguese
[2023-12-18 18:16] LABS: Bacteria Urine Trace (None Seen); Hyaline Casts Urine 0-2 /LPF (0-2); RBC Urine 0-2 /HPF (0-2); UACC Culture Trigger YES
== END 2023-12-18 18:57 | disposition home or self-care (01) ==
PROVIDERS: Emergency Provider Internal Medicine
DX: R07.9 Chest pain, unspecified (principal); I10 Essential (primary) hypertension; E11.9 Type 2 diabetes mellitus without complications; G40.909 Epilepsy, unspecified, not intractable, without status epilepticus; Z79.4 Long term (current) use of insulin
CPT/HCPCS: 36415; 80053; 81001; 81003; 82947; 84484; 85025; 87086; 93005; 99283

== ENCOUNTER → 2023-12-18 15:46 | Outpatient (BNV) | payer OTHER, SELFPAY | PROVIDERS: Emergency Provider Internal Medicine; Visit Provider Internal Medicine | DX: R07.9 Chest pain, unspecified (principal) | CPT/HCPCS: 93010 ==

== ENCOUNTER 2023-12-22 08:28 | Outpatient (AMB) | payer OTHER, SELFPAY ==
--- NOTE | 2023-12-22 08:33 | MHC.PC.OV ---
Vital Signs 12/22/23 08:34 Height 5 ft 6 in Weight 179 lb 2 oz BMI 28.9 BP 120/74 Blood Pressure Location Lt brachial Position Sitting Pulse 90 Pulse Source Pulse Oximeter Pulse Oximetry (%) 95 Oxygen Delivery Method Room Air Intake Visit Reasons: Annual Exam- NEEDS A1C - [facility] care Erica Intake Note: Patient is here today for a physical. Mothers Helper Required: Yes Mothers Helper Language: Syrian Information Interpreted: non-clinical & clinical Partnership Marketing Manager: Not Required per policy Accompanied by: Self / Same As Patient Allergies No Known Allergies Allergy (Verified 12/23/23 16:13) Medication List - Last Reconciled 12/23/23 by Zachariah Horvath MD acetaminophen 650 mg (2 x 325 mg) PO Q6H PRN amitriptyline 40 mg (4 x 10 mg) PO DAILY 90 days amlodipine 5 mg PO DAILY 90 days aspirin 81 mg PO DAILY atorvastatin 80 mg PO BEDTIME canagliflozin (Invokana) 300 mg PO DAILY carvedilol 6.25 mg PO BID cetirizine (Zyrtec) 10 mg PO DAILY PRN cyclobenzaprine 10 mg PO DAILY PRN 7 days docusate sodium 100 mg PO BID PRN duloxetine 30 mg PO DAILY ezetimibe 10 mg PO DAILY flash glucose scanning reader (HeartFlowStyle Guerda 2 [place]) As directed flash glucose sensor (FreeStyle Guerda 2 Sensor kit) As directed fluticasone propionate 50 mcg/actuation 1 spray intranasal DAILY PRN furosemide 20 mg See Protocol PO DAILY 90 days hydrochlorothiazide 12.5 mg PO DAILY 90 days insulin glargine (Lantus Solostar U-100 Insulin) 45 units (0.45 mL) subcut QAM insulin lispro See Protocol sliding scale doses subcut TIDAC lactulose 20 grams (30 mL) PO BID levetiracetam 2,000 mg (2 x 1,000 mg) PO BID 30 days lidocaine 5% 1 patch topical BID lisinopril 40 mg PO DAILY meloxicam 15 mg PO DAILY PRN naproxen 500 mg PO BID PRN omeprazole 20 mg PO BID@0630,1630 psyllium husk (Metamucil) 1 tsp PO DAILY PRN sitagliptin phosphate (Januvia) 100 mg PO DAILY sucralfate (Carafate) 10 mL PO BEDTIME Tobacco use date assessed: 12/22/23 Dental Screening Dental Screen Date: 09/01/23 HPI Annual Exam- NEEDS A1C - [facility] Erica [facility] Details 58-year-old female presents to the office requesting an annual physical. Patient comes alone and a communications lead via the iPad is used. In addition patient is not taking the insulin as prescribed. She has stopped taking the Lantus altogether. Also complaining of a trigger finger in the left hand and requests a referral. She has a referral to Ophthalmology. [facility] Medical History (Updated 12/23/23 @ 16:24 by Zachariah Horvath MD) Trigger finger of left hand Diabetic retinopathy Type 2 diabetes mellitus with hyperglycemia, with long-term current use of insulin Essential hypertension Hyperlipidemia LDL goal <100 Gastroparesis Hyperlipidemia Depression Asthma Epilepsy Hypertension Surgical History Hx of colonoscopy (~06/2018) H/O esophagogastroduodenoscopy (03/14/18) History of ankle surgery H/O section Family History Mother Diabetes Father Diabetes Social History Household Members: Children Housing: Apartment Do you presently have visiting nurse or other home services: Yes (vna - pt has locked box) Alcohol intake: never Patient Tobacco Use Status: Never used Tobacco e-Cigarette/Vaping Use: Never Used Second Hand Smoke Exposure: No service: No Current occupational status: unemployed Cognitive needs: Yes (cane/walker) Hearing needs: No Vision needs: Yes (glasses) Questionnaire Thrive Questionnaire Date Thrive assessed: 08/15/23 IRWIN-7 AMB Questionnaire IRWIN-7 Date IRWIN - 7 assessed: 08/15/23 Source: Developed by Drs. Vasu Gentile, Harriet Garrido, Carlitos Goldstein and colleagues, with an educational shira from [employer]. Physical exam (Primary Care) Vital Signs: Last Vital Signs Pulse 90 12/22/23 08:34 BP 120/74 12/22/23 08:34 Pulse Ox 95 12/22/23 08:34 Oxygen Delivery Method Room Air 12/22/23 08:34 Care Plan Goal for BP management: Blood pressure is stable. BMI result Body Mass Index 28.9 Tobacco/Smoking Status: Tobacco use Status Tobacco use date assessed 12/22/23 12/22/23 08:55 Patient Tobacco Use Status Never used Tobacco 12/22/23 08:55 e-Cigarette/Vaping Use Never Used 12/22/23 08:55 Thrive Assessment: Date of Thrive Assessment Date Thrive assessed 08/15/23 12/22/23 08:55 Const General: cooperative and healthy appearing Nutritional Appearance: well nourished Orientation/consciousness: patient oriented x3 Limitations: no limitations HENMT Head: Yes normal to inspection Eyes General: appearance normal, both eyes and all related structures Neck Neck: Yes normal visual inspection Chest Chest palpation & inspection: normal palpation of entire chest wall Resp Effort & Inspection: normal respiratory effort Neuro General: patient oriented x3 Results AMB Hemoglobin A1c AMB Hemoglobin A1c 9.7 % Last Edit by KRISTEN España on 12/22/23 08:56 Results Reviewed Results Reviewed: Laboratory Last Values Hgb A1c (Clinic) 9.7 % (4.0-6.0) H 12/22/23 08:33 Assessment and Plan Assessment & Plan (1) Type 2 diabetes mellitus with hyperglycemia, with long-term current use of insulin: Code(s): E11.65 - Type 2 diabetes mellitus with hyperglycemia; Z79.4 - longterm (current) use of insulin Plan: Patient was advised to restart the Lantus insulin. She will restart at 45 units to be taken at night. (2) Essential hypertension: Code(s): I10 - Essential (primary) hypertension (3) Epilepsy: Code(s): G40.909 - Epilepsy, unspecified, not intractable, without status epilepticus (4) Annual physical exam: Code(s): Z00.00 - Encounter for general adult medical examination without abnormal findings Plan: Blood work has been ordered. Will call with the results. (5) Trigger finger of left hand: Code(s): M65.30 - Trigger finger, unspecified finger Plan: Orthopedic consult has been requested. 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
[2023-12-22 08:34] VITALS: BP 120/74; PULSE 90; O2SAT 95; BMI 28.9
== END 2023-12-22 10:37 | disposition home or self-care (01) ==
PROVIDERS: PCP Nurse Practitioner Family; Visit Provider Internal Medicine
DX: E11.65 Type 2 diabetes mellitus with hyperglycemia (principal); Z79.4 Long term (current) use of insulin
CPT/HCPCS: 83036; 99396

== ENCOUNTER 2024-01-16 08:43 | Emergency (ER) | payer OTHER, SELFPAY ==
--- NOTE | ~2024-01-16 | XR_ITS ---
EXAMINATION: XR CHEST 2 VIEW CLINICAL INFORMATION: Chest pain, cough COMPARISON: 07/30/2023 TECHNIQUE: PA and lateral views of the chest obtained. FINDINGS: The lungs are clear. There are no pleural effusions. The cardiomediastinal silhouette is normal. XR/XR chest 2V IMPRESSION: No acute cardiopulmonary disease.
[2024-01-16 08:47] VITALS: BP 151/78; PULSE 101; RESP 20; TEMP 36.9; O2SAT 95; BMI 31.3
--- NOTE | 2024-01-16 09:14 | ED.URI ---
HPI - URI/Sore Throat General Chief Complaint: Upper Respiratory Symptoms Stated Complaint: Cough Time Seen by Provider: 01/16/24 08:51 Source: patient and RN notes reviewed Mode of arrival: ambulatory Limitations: no limitations History of Present Illness ED Provider: No Chavez PA-C HPI Narrative: This is a 58-year-old Turkmen-speaking female who presents emergency department with complaints of cough, congestion, sore throat x3 days. Patient states that several days ago she developed a dry cough, with a sore throat, and left ear pain. She states that her sister is sick with similar symptoms. She denies any fevers, chills, chest pain, abdominal pain, nausea, vomiting or diarrhea. She has been taking Tylenol severe cold and flu with chest provided her with some relief. No other complaints or concerns at this time. MD elicited complaint: cough, sore throat and nasal congestion Severity: moderate Able to tolerate fluids by mouth: Yes Exacerbating factors: nothing Relieving factors: NSAID and OTC cold medicine Context: sick contacts Treatments prior to arrival: none Related Data Home Medications ?Medication ?Instructions ?Recorded ?Confirmed psyllium husk 3.4 gram/5.4 gram 1 tsp PO DAILY PRN Constipation 11/22/23 11/23/23 oral powder (Metamucil) fluticasone propionate 50 1 spray intranasal DAILY PRN 11/23/23 11/23/23 mcg/actuation nasal allergies spray,suspension lidocaine 5 % topical patch 1 patch topical BID 11/23/23 11/23/23 naproxen 500 mg tablet 500 mg PO BID PRN Pain 11/23/23 11/23/23 sucralfate 100 mg/mL oral 10 ml PO BEDTIME 11/23/23 11/23/23 suspension (Carafate) Previous Rx's ?Medication ?Instructions ?Recorded omeprazole 20 mg capsule,delayed 20 mg PO BID@0630,1630 #180 caps 03/30/23 release flash glucose scanning reader #1 ea 06/05/23 (FreeStyle Guerda 2 [place]) acetaminophen 325 mg tablet 650 mg (2 x 325 mg) PO Q6H PRN 07/06/23 Pain #90 tabs ezetimibe 10 mg tablet 10 mg PO DAILY #90 tabs 08/01/23 furosemide 20 mg tablet 20 mg PO DAILY 90 days #90 tabs 09/01/23 lisinopril 40 mg tablet 40 mg PO DAILY #90 tabs 09/01/23 amitriptyline 10 mg tablet 40 mg (4 x 10 mg) PO DAILY 90 days 09/05/23 #360 tabs hydrochlorothiazide 12.5 mg tablet 12.5 mg PO DAILY 90 days #90 tabs 09/12/23 lactulose 20 gram/30 mL oral 20 g (30 mL) PO BID #1,200 mL 09/14/23 solution amlodipine 5 mg tablet 5 mg PO DAILY 90 days #90 tabs 10/03/23 atorvastatin 80 mg tablet 80 mg PO BEDTIME #90 tabs 10/11/23 cetirizine 10 mg tablet (Zyrtec) 10 mg PO DAILY PRN allergy 10/14/23 symptoms #90 tabs cyclobenzaprine 10 mg tablet 10 mg PO DAILY PRN muscle spasm 7 10/25/23 days #7 tabs docusate sodium 100 mg capsule 100 mg PO BID PRN for constipation 10/26/23 #60 caps duloxetine 30 mg capsule,delayed 30 mg PO DAILY #90 caps 11/15/23 release flash glucose sensor (FreeStyle #1 ea 11/28/23 Guerda 2 Sensor kit) canagliflozin 300 mg tablet 300 mg PO DAILY #90 tabs 11/29/23 (Invokana) levetiracetam 1,000 mg tablet 2,000 mg (2 x 1,000 mg) PO BID 30 11/29/23 days #120 tabs sitagliptin phosphate 100 mg 100 mg PO DAILY #90 tabs 11/29/23 tablet (Januvia) aspirin 81 mg tablet,delayed 81 mg PO DAILY #90 tabs 12/11/23 release carvedilol 6.25 mg tablet 6.25 mg PO BID #180 tabs 01/10/24 insulin glargine 100 unit/mL (3 45 unit (0.45 mL) subcut QAM #15 mL 01/13/24 mL) subcutaneous pen (Lantus Solostar U-100 Insulin) insulin lispro 100 unit/mL See Protocol subcut TIDAC #15 mL 01/13/24 subcutaneous pen meloxicam 15 mg tablet 15 mg PO DAILY PRN Pain #30 tabs 01/13/24 acetaminophen 500 mg tablet 500 mg PO Q6H PRN pain #30 tabs 01/16/24 (Tylenol Extra Strength) benzonatate 100 mg capsule 100 mg PO TID PRN cough #14 caps 01/16/24 Allergies Allergy/AdvReac Type Severity Reaction Status Date / Time No Known Allergies Allergy Verified 01/16/24 08:48 Review of Systems Review of Systems: Yes all other systems are reviewed and are negative Constitutional: Constitutional: Reports as per [facility] Past Medical History Medical History (Updated 01/16/24 @ 11:10 by CARA Ross) Trigger finger of left hand Diabetic retinopathy Type 2 diabetes mellitus with hyperglycemia, with long-term current use of insulin Essential hypertension Hyperlipidemia LDL goal <100 Gastroparesis Hyperlipidemia Depression Asthma Epilepsy Hypertension Surgical History Hx of colonoscopy (~06/2018) H/O esophagogastroduodenoscopy (03/14/18) History of ankle surgery H/O section Family History Family History Mother Diabetes Father Diabetes Social History Social History Household Members: Children Housing: Apartment Do you presently have visiting nurse or other home services: Yes (vna - pt has locked box) Alcohol intake: never Patient Tobacco Use Status: Never used Tobacco e-Cigarette/Vaping Use: Never Used Second Hand Smoke Exposure: No Advance Directives: No Advance Directives Information Provided: No Do you have a plan to hurt others: No Plan service: No Current occupational status: unemployed Cognitive needs: Yes (cane/walker) Hearing needs: No Vision needs: Yes (glasses) Physical Exam Vital Signs: Vital Signs: Last Vital Signs Temp 98.5 F 01/16/24 08:47 Pulse 101 H 01/16/24 08:47 Resp 20 01/16/24 08:47 BP 151/78 H 01/16/24 08:47 Pulse Ox 95 01/16/24 08:47 O2 Del Method Room Air 01/16/24 08:47 BMI result Body Mass Index 31.3 Const: General: cooperative, comfortable and no acute distress Orientation/consciousness: patient oriented x3 Limitations: no limitations HEENT: Head: Yes normal to inspection, Yes normocephalic and Yes atraumatic Ears: hearing grossly normal bilaterally General nose exam: Normal external nose present Face and sinus: Yes normal facial exam Mouth: Normal oral and palatal mucosa present, oropharynx normal and moist mucous membranes Throat: Yes posterior oropharynx normal Eyes: General: appearance normal, both eyes and all related structures Eyelids: Yes eyelids normal Conjunctivae: conjunctivae normal Sclerae: sclerae normal Pupils: Equal, round and reactive pupils present EOM: EOMs intact bilaterally Neck: Neck: Yes normal visual inspection, Yes full ROM and Yes no lymphadenopathy Lymphatic: no lymphadenopathy noted Chest: Chest palpation & inspection: normal inspection of the chest Resp: Effort & Inspection: normal respiratory effort and able to speak in complete sentences Auscultation: clear to auscultation bilaterally, no crackles, no rales, no rhonchi and no wheezes Cardio: Rate: regular rate Rhythm: regular rhythm Heart sounds: S1 normal heart sound present and S2 normal heart sound present GI: Inspection: Yes normal to inspection Skin: General skin exam: no rashes or lesions noted Trauma: no lacerations or abrasions Wounds: no wounds Neuro: General: patient oriented x3 and moves all extremities Cranial nerves: Yes Equal, round and reactive pupils present Extrem: Other: No pitting edema noted bilaterally. General: Yes normal to inspection Right upper extremity: normal to inspection Left upper extremity: normal to inspection Right lower extremity: normal to inspection Left lower extremity: normal to inspection Course Reevaluation(s) Reevaluation #1: Chest x-ray returns, no evidence of pneumonia. Viral swabs are negative. Symptoms likely due to a virus. Discussed findings with patient with mortgage loan officer originator at bedside. Discussed return precautions. She understands and agrees with plan. Given dose of Tessalon in the department today. Patient stable for discharge. Time: 11:15 Medical Decision Making Medical Decision Making MDM Narrative: This is a 58-year-old female, with a history of type 2 diabetes, hypertension, seizure disorder, and hyperlipidemia, who presents emergency department with complaints of dry cough, congestion, sore throat x3 days. On arrival, coarse cough noted, otherwise lungs are clear to auscultation bilaterally, oropharynx is nonerythematous. Bilateral ears unremarkable. Vital signs within normal limits. Differential diagnoses include URI, sinusitis, reactive airway disease, pneumonia. Less likely ACS-CHF exacerbation. Plan: Viral swabs, and chest x-ray Differential Diagnosis Differential Diagnoses: The differential diagnosis associated with the presentation includes See above Lab Data MDM Lab Attestation statement: I reviewed the patient's lab results. Negative strep, viral swabs negative Labs: Lab Results 01/16/24 Range/Units 08:52 Influenza Type A (PCR) NEGATIVE (Negative) Influenza Type B (PCR) NEGATIVE (Negative) RSV RNA Qual (PCR) NEGATIVE (Negative) SARS-CoV-2 RNA (RT-PCR) NEGATIVE (Negative) S. pyogenes GrpA JASE Negative (Negative) Independent Interpretation Interpretation: I reviewed the chest x-ray and agree with the radiology report. Radiology Impression Discussion of test interpretation with radiology: I have reviewed the radiologist's reading. Radiologist Impression: EXAMINATION: XR CHEST 2 VIEW CLINICAL INFORMATION: Chest pain, cough COMPARISON: 07/30/2023 TECHNIQUE: PA and lateral views of the chest obtained. FINDINGS: The lungs are clear. There are no pleural effusions. The cardiomediastinal silhouette is normal. XR/XR chest 2V IMPRESSION: No acute cardiopulmonary disease. Dictated By: Edgar Bellamy MD Discharge Plan Discharge Clinical Impression: Upper respiratory infection Qualifiers: URI type: unspecified URI Qualified Code(s): J06.9 - Acute upper respiratory infection, unspecified Patient Disposition: Home, Self-Care Instructions: Upper Respiratory Infection (ED) Additional Instructions: You were seen in the emergency department due to a cough. Your chest x-ray was normal. You tested negative for COVID, flu, RSV and strep throat. Your symptoms are likely due to a virus. It is very important for you to drink plenty of fluids get plenty of rest. Take Tessalon Perles as needed for cough. Use a humidifier in the bedroom as this can also help with your cough. Warm soups, hot teas, saltwater gargles, alternating between ibuprofen and Tylenol for your symptoms can also help. If any new or worsening symptoms occur including but not limited to shortness of breath, chest pain, please return for re-evaluation. Prescriptions: New acetaminophen [Tylenol Extra Strength] 500 mg tablet 500 mg PO Q6H PRN (Reason: pain) Qty: 30 0RF benzonatate 100 mg capsule 100 mg PO TID PRN (Reason: cough) Qty: 14 0RF No Action omeprazole 20 mg capsule,delayed release(DR/EC) 20 mg PO BID@0630,1630 Qty: 180 3RF (DME) FreeStyle Guerda 2 [place] Misc See Rx Instructions .Route Qty: 1 0RF Rx Instructions: As directed acetaminophen 325 mg tablet 650 mg PO Q6H PRN (Reason: Pain) Qty: 90 0RF ezetimibe 10 mg tablet 10 mg PO DAILY Qty: 90 1RF amitriptyline 10 mg tablet 40 mg PO DAILY 90 Days Qty: 360 0RF hydrochlorothiazide 12.5 mg tablet 12.5 mg PO DAILY 90 Days Qty: 90 1RF amlodipine 5 mg tablet 5 mg PO DAILY 90 Days Qty: 90 1RF atorvastatin 80 mg tablet 80 mg PO BEDTIME Qty: 90 1RF cetirizine [Zyrtec] 10 mg tablet 10 mg PO DAILY PRN (Reason: allergy symptoms) Qty: 90 0RF cyclobenzaprine 10 mg tablet 10 mg PO DAILY PRN (Reason: muscle spasm) 7 Days Qty: 7 0RF docusate sodium 100 mg capsule 100 mg PO BID PRN (Reason: for constipation) Qty: 60 2RF duloxetine 30 mg capsule,delayed release(DR/EC) 30 mg PO DAILY Qty: 90 0RF (DME) FreeStyle Guerda 2 Sensor Kit See Rx Instructions .Route Qty: 1 3RF Rx Instructions: As directed Invokana 300 mg tablet 300 mg PO DAILY Qty: 90 1RF levetiracetam 1,000 mg tablet 2,000 mg PO BID 30 Days Qty: 120 0RF Januvia 100 mg tablet 100 mg PO DAILY Qty: 90 0RF aspirin 81 mg tablet,delayed release (DR/EC) 81 mg PO DAILY Qty: 90 3RF carvedilol 6.25 mg tablet 6.25 mg PO BID Qty: 180 0RF Rx Instructions: must administer with a meal/food insulin lispro 100 unit/mL insulin pen See Protocol subcut TIDAC Qty: 15 1RF Protocol: Insulin Correction Scale Less than or equal to 110 ---- Give (units): 0 111 to 150 Give (units): 0 151 to 200 Give (units): 2 201 to 250 Give (units): 4 251 to 300 Give (units): 6 301 to 350 Give (units): 8 Greater than 350 Give (units): 10 Call MD if Blood Glucose > : 350 Rx Instructions: 5 units if BG <250, 10 units if Bg > 250 insulin glargine [Lantus Solostar U-100 Insulin] 100 unit/mL (3 mL) insulin pen 45 unit subcut QAM Qty: 15 3RF meloxicam 15 mg tablet 15 mg PO DAILY PRN (Reason: Pain) Qty: 30 0RF lactulose 20 gram/30 mL solution 20 g PO BID Qty: 1200 0RF Metamucil 3.4 gram/5.4 gram powder 1 tsp PO DAILY PRN (Reason: Constipation) Rx Instructions: mix into at least 8 oz of water or juice before administering sucralfate [Carafate] 100 mg/mL Suspension 10 ml PO BEDTIME Rx Instructions: before meals lidocaine 5 % Adhesive Patch,Medicated 1 patch TOPICAL BID Rx Instructions: leave on most painful area for up to 12 hrs fluticasone propionate 50 mcg/actuation [place],Suspension 1 spray INTRANASAL DAILY PRN (Reason: allergies) Rx Instructions: administer into each nostril naproxen 500 mg Tablet 500 mg PO BID PRN (Reason: Pain) furosemide 20 mg tablet 20 mg PO DAILY 90 Days Qty: 90 1RF Protocol: Hold for SBP< HOLD for SBP < : 90 lisinopril 40 mg tablet 40 mg PO DAILY Qty: 90 1RF Print Language: Turkmen
[2024-01-16 09:31] LABS: IDNOW Serial# 08D9AD1C; Strep A Nucleic Acid Negative (Negative)
--- NOTE | 2024-01-16 09:43 | PC.NURSE ---
xray being completed at this time.
[2024-01-16 09:50] LABS: Influenza A PCR NEGATIVE (Negative); Influenza B PCR NEGATIVE (Negative); Resp Syncy Virus RNA Qual PCR NEGATIVE (Negative); SARS COV2 PCR INHOUSE NEGATIVE (Negative)
[2024-01-16] MEDS: Benzonatate 100 MG CAPSULE PO (11:23)
--- NOTE | 2024-01-16 11:23 | PC.NURSE ---
medication administered per provider order. effectiveness pending.
[2024-01-16 11:26] VITALS: BP 151/78; PULSE 101; RESP 20; TEMP 36.9; O2SAT 95
== END 2024-01-16 11:27 | disposition home or self-care (01) ==
PROVIDERS: Emergency Provider Emergency Medicine; PCP Internal Medicine
DX: J06.9 Acute upper respiratory infection, unspecified (principal); R05.9 Cough, unspecified; R07.89 Other chest pain; R09.81 Nasal congestion; Z03.818 Encounter for observation for suspected exposure to other biological agents ruled out; Z79.899 Other long term (current) drug therapy; Z79.4 Long term (current) use of insulin
CPT/HCPCS: 0241U; 71046; 87651; 99282; 99283

== ENCOUNTER 2024-01-31 08:38 | Outpatient (REF) | payer OTHER, SELFPAY | END 2024-01-31 08:39 | disposition home or self-care (01) | LOC: HO.MAMMO 08:38 | PROVIDERS: PCP Internal Medicine; Visit Provider Internal Medicine | DX: Z12.31 Encounter for screening mammogram for malignant neoplasm of breast (principal) | CPT/HCPCS: 77063; 77067 ==

== ENCOUNTER 2024-01-31 09:05 | Emergency (ER) | payer OTHER, SELFPAY ==
--- NOTE | ~2024-01-31 | XR_ITS ---
EXAMINATION: XR ANKLE, LEFT CLINICAL INFORMATION: Cellulitis. COMPARISON: None available. TECHNIQUE: AP, lateral, and mortise views of the left ankle. FINDINGS: Diffuse osteopenia. No fracture, dislocation or destructive process. XR/XR ankle LT min 3V IMPRESSION: No acute underlying osseous abnormality.
--- NOTE | ~2024-01-31 | XR_ITS ---
EXAMINATION: XR FOOT, LEFT CLINICAL INFORMATION: Toe cellulitis COMPARISON: None available. TECHNIQUE: AP, lateral, and oblique views of the left foot. FINDINGS: Diffuse osteopenia. No fracture or destructive process or radiopaque foreign body. There does incidentally show soft tissue swelling about the ankle joint but no underlying destructive process. Vascular calcifications are present. XR/XR foot LT min 3V IMPRESSION: The first toe appears intact.
[2024-01-31 09:10] VITALS: BP 172/88; PULSE 93; RESP 18; TEMP 36.6; O2SAT 96; BMI 31.3
--- NOTE | 2024-01-31 09:39 | ED_ITS ---
HPI - Skin/Abscess/Foreign Bdy General Chief complaint: Skin/Abscess/Foreign Body Stated complaint: Redness both feet Time Seen by Provider: 01/31/24 09:23 Source: patient and shellac polisher ([place] African) Mode of arrival: ambulatory Limitations: language barrier ([place] African) History of Present Illness ED Provider: DWIGHT LIZARRAGA PA-C HPI narrative: 58-year-old Central African-speaking female with past medical history significant for hypertension, asthma, anxiety, depression, type 2 diabetes, diabetic polyneuropathy presents to the ED today for evaluation of redness/swelling to left great toe x5 days. Reports redness is now spreading to the top of her left foot. Admits to pain with movement of the left great toe along with palpation of the top of the foot. Taking Tylenol at home with temporary relief. She has never had these symptoms in the past. Denies injury or trauma. Denies known tick or insect bites. Denies fever/chills, rashes. corrosion prevention metal sprayer utilized throughout visit to communicate with patient. Related Data Home Medications ?Medication ?Instructions ?Recorded ?Confirmed psyllium husk 3.4 gram/5.4 gram 1 tsp PO DAILY PRN Constipation 11/22/23 11/23/23 oral powder (Metamucil) fluticasone propionate 50 1 spray intranasal DAILY PRN 11/23/23 11/23/23 mcg/actuation nasal allergies spray,suspension lidocaine 5 % topical patch 1 patch topical BID 11/23/23 11/23/23 naproxen 500 mg tablet 500 mg PO BID PRN Pain 11/23/23 11/23/23 sucralfate 100 mg/mL oral 10 ml PO BEDTIME 11/23/23 11/23/23 suspension (Carafate) Previous Rx's ?Medication ?Instructions ?Recorded omeprazole 20 mg capsule,delayed 20 mg PO BID@0630,1630 #180 caps 03/30/23 release flash glucose scanning reader #1 ea 06/05/23 (FreeStyle Guerda 2 [place]) acetaminophen 325 mg tablet 650 mg (2 x 325 mg) PO Q6H PRN 07/06/23 Pain #90 tabs furosemide 20 mg tablet 20 mg PO DAILY 90 days #90 tabs 09/01/23 lisinopril 40 mg tablet 40 mg PO DAILY #90 tabs 09/01/23 amitriptyline 10 mg tablet 40 mg (4 x 10 mg) PO DAILY 90 days 09/05/23 #360 tabs hydrochlorothiazide 12.5 mg tablet 12.5 mg PO DAILY 90 days #90 tabs 09/12/23 lactulose 20 gram/30 mL oral 20 g (30 mL) PO BID #1,200 mL 09/14/23 solution amlodipine 5 mg tablet 5 mg PO DAILY 90 days #90 tabs 10/03/23 atorvastatin 80 mg tablet 80 mg PO BEDTIME #90 tabs 10/11/23 cetirizine 10 mg tablet (Zyrtec) 10 mg PO DAILY PRN allergy 10/14/23 symptoms #90 tabs cyclobenzaprine 10 mg tablet 10 mg PO DAILY PRN muscle spasm 7 10/25/23 days #7 tabs duloxetine 30 mg capsule,delayed 30 mg PO DAILY #90 caps 11/15/23 release canagliflozin 300 mg tablet 300 mg PO DAILY #90 tabs 11/29/23 (Invokana) sitagliptin phosphate 100 mg 100 mg PO DAILY #90 tabs 11/29/23 tablet (Januvia) aspirin 81 mg tablet,delayed 81 mg PO DAILY #90 tabs 12/11/23 release carvedilol 6.25 mg tablet 6.25 mg PO BID #180 tabs 01/10/24 insulin glargine 100 unit/mL (3 45 unit (0.45 mL) subcut QAM #15 mL 01/13/24 mL) subcutaneous pen (Lantus Solostar U-100 Insulin) insulin lispro 100 unit/mL See Protocol subcut TIDAC #15 mL 01/13/24 subcutaneous pen meloxicam 15 mg tablet 15 mg PO DAILY PRN Pain #30 tabs 01/13/24 acetaminophen 500 mg tablet 500 mg PO Q6H PRN pain #30 tabs 01/16/24 (Tylenol Extra Strength) benzonatate 100 mg capsule 100 mg PO TID PRN cough #14 caps 01/16/24 docusate sodium 100 mg capsule 100 mg PO BID PRN for constipation 01/17/24 #60 caps levetiracetam 1,000 mg tablet 2,000 mg (2 x 1,000 mg) PO BID 30 01/19/24 days #120 tabs ezetimibe 10 mg tablet 10 mg PO DAILY #90 tabs 01/29/24 flash glucose sensor (FreeStyle #1 ea 01/31/24 Guerda 2 Sensor kit) naproxen 500 mg tablet 500 mg PO Q8-12H PRN pain (scale 01/31/24 score 1-3) #20 tabs Allergies Allergy/AdvReac Type Severity Reaction Status Date / Time No Known Allergies Allergy Verified 01/31/24 09:12 Review of Systems 2 Review of Systems: Constitutional: No fever, chills, fatigue, night sweats, weight changes ENT/Mouth: No ear pain, hearing loss, nasal congestion, sinus pain, rhinorrhea, sore throat Eyes: No eye pain, swelling, redness, vision changes, discharge Cardio: No chest pain, palpitations, ENRIQUEZ, orthopnea, peripheral edema Pulm: No SOB, cough, sputum, wheezing, dyspnea, hemoptysis GI: No nausea, vomiting, hematemesis, abdominal pain, diarrhea, constipation, hematochezia, melena : No irregular bleeding, dysuria, frequency, urgency, hesitancy, hematuria, flank pain, urinary flow changes, urinary incontinence or retention MSK: No back pain, neck pain, joint pain, myalgias, +left great toe pain Skin: No lesions, rashes Neuro: No weakness, numbness, paresthesias, LOC, dizziness, headache Psych: No anxiety/panic, depression, SI/HI, AH/VH All other systems reviewed and are negative. [facility] Past Medical History Attestation statement: The following information was validated with the patient. Source: old records reviewed and nursing notes reviewed Medical History Trigger finger of left hand Diabetic retinopathy Type 2 diabetes mellitus with hyperglycemia, with long-term current use of insulin Essential hypertension Hyperlipidemia LDL goal <100 Gastroparesis Hyperlipidemia Depression Asthma Epilepsy Hypertension Surgical History Hx of colonoscopy (~06/2018) H/O esophagogastroduodenoscopy (03/14/18) History of ankle surgery H/O section Family History Family History Mother Diabetes Father Diabetes Social History Social History Household Members: Children Housing: Apartment Do you presently have visiting nurse or other home services: Yes (vna - pt has locked box) Alcohol intake: never Patient Tobacco Use Status: Never used Tobacco e-Cigarette/Vaping Use: Never Used Second Hand Smoke Exposure: No Advance Directives: No Do you have a plan to hurt others: No Plan service: No Current occupational status: unemployed Cognitive needs: Yes (cane/walker) Hearing needs: No Vision needs: Yes (glasses) Physical Exam 2 Vital Signs: Vital Signs: Last Vital Signs Temp 97.9 F 01/31/24 09:10 Pulse 93 01/31/24 09:10 Resp 18 01/31/24 09:10 BP 172/88 H 01/31/24 09:10 Pulse Ox 96 01/31/24 09:10 O2 Del Method Room Air 01/31/24 09:10 BMI result Body Mass Index 31.3 Vital signs stable Const: General: cooperative, healthy appearing, comfortable and no acute distress Orientation/consciousness: patient oriented x3 Limitations: no limitations HEENT: Head: Yes normal to inspection, Yes normocephalic and Yes atraumatic Eyes: General: appearance normal, both eyes and all related structures C onjunctivae: conjunctivae normal Sclerae: sclerae normal Pupils: Equal, round and reactive pupils present Neck: Neck: Yes normal visual inspection and Yes full ROM Resp: Effort & Inspection: normal respiratory effort Auscultation: clear to auscultation bilaterally Cardio: Rate: regular rate Rhythm: regular rhythm Skin: General skin exam: no rashes or lesions noted Neuro: General: patient oriented x3, gait normal and moves all extremities Cranial nerves: Yes Equal, round and reactive pupils present Extrem: Other: + erythema and swelling noted to left gr eat toe and dorsal aspect of left foot. Limited ROM noted to left great toe with full ROM intact to all other toes. Tender to palpation. No palpable deformity, crepitus, fluctuance. No streaking. 2+ PT/DP pulse intact. Full ROM intact to left ankle. No calf tenderness. No pitting or peripheral edema. General: Yes normal to inspection Course Course Course Narrative: 1104-- CBC without leukocytosis or left shift. Normocytic anemia, H&H stable when compared to priors. Chemistry without acute electrolyte abnormality requiring intervention. Normal renal function. Glucose elevated to 62. Uric acid is elevated to 5.8. Normal liver function. xr left foot/ankle without evidene of fracture or osteo. > presentation consistent with gout likely secondary to hydrochlorothiazide use. Patient is currently on carvedilol and colchicine is contraindicated with this medication. Also her blood sugar is not well controlled with her homr medications and I do not feel comfortable sending patient home on prednisone as this can increase them. Will send patient with naproxen with PCP follow-up as she will likely require medication adjustments. Patient has remained stable throughout ED visit today. Discussed worrisome signs and symptoms and when to return to the ED. All questions answered at this time. Patient is agreeable with disposition and stable for discharge. Medications Administered Discontinued Medications Generic Name Dose Route Start Last Admin Trade Name Freq PRN Reason Stop Dose Admin Ketorolac Tromethamine 30 mg 01/31/24 09:41 01/31/24 09:44 Ketorolac Tromethamine 30 Mg/Ml Vial IM 01/31/24 09:42 30 mg ONCE ONE Administration Medical Decision Making Medical Decision Making [facility] Narrative: 58-year-old [place] African-speaking female with past medical history significant for hypertension, asthma, anxiety, depression, type 2 diabetes, diabetic polyneuropathy presents to the ED today for evaluation of redness/swelling to left great toe x5 days. Patient is slightly hypertensive, vitals otherwise WNL. She is afebrile. Nontoxic appearing and in no acute distress. Lying comfortably on the exam bed. On exam, there is erythema and swelling noted to left great toe and dorsal aspect of left foot. Limited ROM noted to left great toe with full ROM intact to all other toes. Tender to palpation. No palpable deformity, crepitus, fluctuance. No streaking. 2+ PT/DP pulse intact. Full ROM intact to left ankle. No calf tenderness. No pitting or peripheral edema. Differential diagnosis includes gout, pseudogout, cellulitis. Lower suspicion for osteomyelitis, diabetic foot ulceration, fracture. Unlikely Lyme arthritis, septic joint, insect bite, abscess. Plan for imaging, labs, pain control and re-evaluation. Differential Diagnosis Differential Diagnoses: The differential diagnosis associated with the presentation includes as above. Admission/Observation Not indicated Lab Data [facility] Lab Attestation statement: I reviewed the patient's lab results. As above 01/31/24 09:51 01/31/24 09:51 Labs: Lab Results 01/31/24 Range/Units 09:51 WBC 8.1 (4.8-10.8) X10*3/uL RBC 3.71 L (4.20-5.50) X10*6/uL Hgb 10.7 L (12.0-16.0) g/dl Hct 32.7 L (37.0-47.0) % MCV 88.1 (80.0-98.0) fL MCH 28.8 (27.0-33.0) pg MCHC 32.7 (31.0-35.0) g/dl RDW 12.5 (11.0-16.0) % Plt Count 315 (160-400) X10*3/uL MPV 9.1 L (9.4-12.3) fL Immature Gran % (Auto) 0.5 H (0.0-0.4) % Neut % (Auto) 68.3 (45-73) % Lymph % (Auto) 19.7 L (20-40) % [place] % (Auto) 5.8 (2-11) % Eos % (Auto) 5.0 H (0-4) % Baso % (Auto) 0.7 (0-2) % Lymph # (Auto) 1.6 (1.2-4.9) X10*3/uL [place] # (Auto) 0.5 (0.1-1.2) X10*3/uL Eos # (Auto) 0.4 (0.0-0.4) X10*3/uL Baso # (Auto) 0.1 (0.0-0.2) X10*3/uL Abs Immat Gran (auto) 0.04 H (0.00-0.03) X10*3/uL Absolute Neuts (auto) 5.5 (2.0-8.3) x10*3/uL Absolute Nucleated RBC 0.000 (0.0-0.012) X10*3/uL Nucleated RBC % (auto) 0.0 (0.0-0.2) /100WBC Sodium 141 (135-145) mmol/L Potassium 4.4 (3.3-5.1) mmol/L Chloride 104 (96-108) mmol/L Carbon Dioxide 28 (22-29) mmol/L Anion Gap 13 (12-20) BUN 21 H (9-16) mg/dL Creatinine 0.86 (0.5-1.4) mg/dL Estim Creat Clear Calc 72.3 Estimated GFR > 60 Random Glucose 262 H (60-115) mg/dL Uric Acid 5.8 H (2.4-5.7) mg/dL Calcium 9.8 D (8.4-10.2) mg/dL Total Bilirubin 0.6 (0.0-1.0) mg/dL AST 11 (5-31) U/L ALT 12 (0-31) U/L Alkaline Phosphatase 116 (39-117) U/L Total Protein 7.1 (6.5-8.0) g/dL Albumin 3.5 (3.5-5.0) g/dL Independent Interpretation I performed an independent interpretation of an: Plain X-Ray Interpretation: X-ray left foot/ankle Radiology Impression Discussion of test interpretation with radiology: I have reviewed the radiologist's reading. Radiologist Impression: EXAMINATION: XR FOOT, LEFT CLINICAL INFORMATION: Toe cellulitis COMPARISON: None available. TECHNIQUE: AP, lateral, and oblique views of the left foot. FINDINGS: Diffuse osteopenia. No fracture or destructive process or radiopaque foreign body. There does incidentally show soft tissue swelling about the ankle joint but no underlying destructive process. Vascular calcifications are present. XR/XR foot LT min 3V IMPRESSION: The first toe appears intact. -- EXAMINATION: XR ANKLE, LEFT CLINICAL INFORMATION: Cellulitis. COMPARISON: None available. TECHNIQUE: AP, lateral, and mortise views of the left ankle. FINDINGS: Diffuse osteopenia. No fracture, dislocation or destructive process. XR/XR ankle LT min 3V IMPRESSION: No acute underlying osseous abnormality. External Record Review External record reviewed: Inpatient record, Office record, Outpatient record, Prior outpatient labs, Prior outpatient radiology, Primary care record and Outside ED record Prescription Management I considered prescription management with: Other (Naproxen) Chronic Conditions Patient?s care impacted by: Diabetes Social Determinants Patient?s care significantly limited by Social Determinants of Health including: Other Social Determinant of Health Critical Care Time Critical Care Time Critical Care Time: No Discharge Plan Discharge Clinical Impression: Gout attack Qualifiers: Gout site: toe Gout etiology: drug-induced Laterality: left Qualified Code(s): M10.272 - Drug-induced gout, left ankle and foot Patient Disposition: Home, Self-Care Instructions: Low Purine Diet (ED), Gout (ED) Additional Instructions: Your xrays are normal. Your blood work today shows high uric acid levels which can indicate gout. This is likely due to your current blood pressure medication, hydrochlorothiazide (HCTZ). HCTZ can elevate uric acid levels, causing acute gout flare with joint pain/ swelling. Gout is treated with NSAIDS. Naproxen is an NSAID that has been sent to your pharmacy for you to take as needed for pain. You need to follow up with your primary care doctor as you may require medication adjustments. Return with new or worsening symptoms. In the case of an emergency call 911. Prescriptions: New naproxen 500 mg tablet 500 mg PO Q8-12H PRN (Reason: pain (scale score 1-3)) Qty: 20 0RF No Action omeprazole 20 mg capsule,delayed release(DR/EC) 20 mg PO BID@0630,1630 Qty: 180 3RF (DME) FreeStyle Guerda 2 [place] Misc See Rx Instructions .Route Qty: 1 0RF Rx Instructions: As directed acetaminophen 325 mg tablet 650 mg PO Q6H PRN (Reason: Pain) Qty: 90 0RF amitriptyline 10 mg tablet 40 mg PO DAILY 90 Days Qty: 360 0RF hydrochlorothiazide 12.5 mg tablet 12.5 mg PO DAILY 90 Days Qty: 90 1RF amlodipine 5 mg tablet 5 mg PO DAILY 90 Days Qty: 90 1RF atorvastatin 80 mg tablet 80 mg PO BEDTIME Qty: 90 1RF cetirizine [Zyrtec] 10 mg tablet 10 mg PO DAILY PRN (Reason: allergy symptoms) Qty: 90 0RF cyclobenzaprine 10 mg tablet 10 mg PO DAILY PRN (Reason: muscle spasm) 7 Days Qty: 7 0RF duloxetine 30 mg capsule,delayed release(DR/EC) 30 mg PO DAILY Qty: 90 0RF Invokana 300 mg tablet 300 mg PO DAILY Qty: 90 1RF Januvia 100 mg tablet 100 mg PO DAILY Qty: 90 0RF aspirin 81 mg tablet,delayed release (DR/EC) 81 mg PO DAILY Qty: 90 3RF carvedilol 6.25 mg tablet 6.25 mg PO BID Qty: 180 0RF Rx Instructions: must administer with a meal/food insulin lispro 100 unit/mL insulin pen See Protocol subcut TIDAC Qty: 15 1RF Protocol: Insulin Correction Scale Less than or equal to 110 ---- Give (units): 0 111 to 150 Give (units): 0 151 to 200 Give (units): 2 201 to 250 Give (units): 4 251 to 300 Give (units): 6 301 to 350 Give (units): 8 Greater than 350 Give (units): 10 Call MD if Blood Glucose > : 350 Rx Instructions: 5 units if BG <250, 10 units if Bg > 250 insulin glargine [Lantus Solostar U-100 Insulin] 100 unit/mL (3 mL) insulin pen 45 unit subcut QA Qty: 15 3RF meloxicam 15 mg tablet 15 mg PO DAILY PRN (Reason: Pain) Qty: 30 0RF docusate sodium 100 mg capsule 100 mg PO BID PRN (Reason: for constipation) Qty: 60 2RF levetiracetam 1,000 mg tablet 2,000 mg PO BID 30 Days Qty: 120 0RF ezetimibe 10 mg tablet 10 mg PO DAILY Qty: 90 1RF (DME) FreeStyle Guerda 2 Sensor Kit See Rx Instructions .Route Qty: 1 3RF Rx Instructions: As directed lactulose 20 gram/30 mL solution 20 g PO BID Qty: 1200 0RF Metamucil 3.4 gram/5.4 gram powder 1 tsp PO DAILY PRN (Reason: Constipation) Rx Instructions: mix into at least 8 oz of water or juice before administering sucralfate [Carafate] 100 mg/mL Suspension 10 ml PO BEDTIME Rx Instructions: before meals lidocaine 5 % Adhesive Patch,Medicated 1 patch TOPICAL BID Rx Instructions: leave on most painful area for up to 12 hrs fluticasone propionate 50 mcg/actuation Shannon,Suspension 1 spray INTRANASAL DAILY PRN (Reason: allergies) Rx Instructions: administer into each nostril naproxen 500 mg Tablet 500 mg PO BID PRN (Reason: Pain) acetaminophen [Tylenol Extra Strength] 500 mg tablet 500 mg PO Q6H PRN (Reason: pain) Qty: 30 0RF benzonatate 100 mg capsule 100 mg PO TID PRN (Reason: cough) Qty: 14 0RF furosemide 20 mg tablet 20 mg PO DAILY 90 Days Qty: 90 1RF Protocol: Hold for SBP< HOLD for SBP < : 90 lisinopril 40 mg tablet 40 mg PO DAILY Qty: 90 1RF [place] [facility] [place] [facility] [place]] [facility] [place] [facility] [place] Group] Print Language: [place]
[2024-01-31] MEDS: Ketorolac Tromethamine 30 MG/ML VIAL IM (09:44)
[2024-01-31 09:54] LABS: MANUAL DIFF FLAG NO
[2024-01-31 09:55] LABS: Basophils Absolute Auto 0.1 X10*3/uL (0.0-0.2); Basophils Percent Auto 0.7 % (0-2); Eosinophils Absolute Auto 0.4 X10*3/uL (0.0-0.4); Hematocrit 32.7 % (37.0-47.0); Hemoglobin 10.7 g/dl (12.0-16.0); Imm Gran Abs Auto 0.04 X10*3/uL (0.00-0.03); Imm Gran Pct Auto 0.5 % (0.0-0.4); Lymphocytes Absolute Auto 1.6 X10*3/uL (1.2-4.9); Lymphocytes Percent Auto 19.7 % (20-40); Mean Corpuscular HGB Conc 32.7 g/dl (31.0-35.0); Mean Corpuscular Hemoglobin 28.8 pg (27.0-33.0); Mean Corpuscular Volume 88.1 fL (80.0-98.0); Mean Platelet Volume 9.1 fL (9.4-12.3); Monocytes Absolute Auto 0.5 X10*3/uL (0.1-1.2); Monocytes Percent Auto 5.8 % (2-11); Neutrophils Absolute Auto 5.5 x10*3/uL (2.0-8.3); Neutrophils Percent Auto 68.3 % (45-73); Platelet Count 315 X10*3/uL (160-400); Red Blood Count 3.71 X10*6/uL (4.20-5.50); Red Cell Distribution Width 12.5 % (11.0-16.0); White Blood Count 8.1 X10*3/uL (4.8-10.8)
[2024-01-31 10:09] LABS: Uric Acid 5.8 mg/dL (2.4-5.7)
[2024-01-31 10:10] LABS: Alanine Aminotransferase 12 U/L (0-31); Albumin Level 3.5 g/dL (3.5-5.0); Alkaline Phosphatase 116 U/L (39-117); Anion Gap 13 (12-20); Aspartate Amino Transferase 11 U/L (5-31); Bilirubin Total 0.6 mg/dL (0.0-1.0); Blood Urea Nitrogen 21 mg/dL (9-16); Calcium 9.8 mg/dL (8.4-10.2); Carbon Dioxide 28 mmol/L (22-29); Chloride 104 mmol/L (96-108); Creatinine Clr Calc Pharmacy 72.3; Estimated Glomerular Filt Rate > 60; Glucose Random 262 mg/dL (60-115); Potassium 4.4 mmol/L (3.3-5.1); Sodium 141 mmol/L (135-145); Total Protein 7.1 g/dL (6.5-8.0)
[2024-01-31 11:29] VITALS: BP 168/80; PULSE 85; RESP 18; TEMP 36.6; O2SAT 98
== END 2024-01-31 11:31 | disposition home or self-care (01) ==
PROVIDERS: Physician Assistant Medical; Emergency Provider Emergency Medicine Emergency Medical Services
DX: M10.272 Drug-induced gout, left ankle and foot (principal); M79.675 Pain in left toe(s)
CPT/HCPCS: 36415; 73610; 73630; 80053; 84550; 85025; 96372; 99283; 99284; J1885

== ENCOUNTER → 2024-01-31 09:15 | Outpatient (BNV) | payer OTHER, SELFPAY | PROVIDERS: PCP Internal Medicine; Visit Provider Radiology Diagnostic Radiology | DX: Z12.31 Encounter for screening mammogram for malignant neoplasm of breast (principal) | CPT/HCPCS: 77063; 77067 ==

== ENCOUNTER 2024-02-13 08:58 | Outpatient (AMB) | payer OTHER, SELFPAY ==
[2024-02-13 09:07] VITALS: BP 148/90; PULSE 74; O2SAT 95; BMI 30.6
--- NOTE | 2024-02-13 09:07 | A.OFFPC_ITS ---
Vital Signs 02/13/24 09:07 Height 5 ft 3 in Weight 173 lb BMI 30.6 BP 148/90 H Blood Pressure Location Lt brachial Position Sitting Pulse 74 Pulse Source Pulse Oximeter Pulse Oximetry (%) 95 Oxygen Delivery Method Room Air Int[place] [facility] [place] Flare Up Intake Note: Patient is here for hospital discharge follow up. [place] [facility] [place] for gout flare up. Manager Willow Required: No Allergies No Known Allergies Allergy (Verified 02/13/24 15:49) Medication List - Last Reconciled 02/13/24 by Zachariah Horvath MD acetaminophen (Tylenol Extra Strength) 500 mg PO Q6H PRN acetaminophen 650 mg (2 x 325 mg) PO Q6H PRN amitriptyline 40 mg (4 x 10 mg) PO DAILY 90 days amlodipine 5 mg PO DAILY 90 days aspirin 81 mg PO DAILY atorvastatin 80 mg PO BEDTIME benzonatate 100 mg PO TID PRN canagliflozin (Invokana) 300 mg PO DAILY carvedilol 6.25 mg PO BID cetirizine (Zyrtec) 10 mg PO DAILY PRN cyclobenzaprine 10 mg PO DAILY PRN 7 days docusate sodium 100 mg PO BID PRN duloxetine 30 mg PO DAILY ezetimibe 10 mg PO DAILY flash glucose scanning reader (2heuresavantStyle Guerda 2 [place]) As directed flash glucose sensor (FreeStyle Guerda 2 Sensor kit) As directed fluticasone propionate 50 mcg/actuation 1 spray intranasal DAILY PRN furosemide 20 mg See Protocol PO DAILY 90 days hydrochlorothiazide 12.5 mg PO DAILY 90 days insulin glargine (Lantus Solostar U-100 Insulin) 45 units (0.45 mL) subcut QAM insulin lispro See Protocol sliding scale doses subcut TIDAC lactulose 20 grams (30 mL) PO BID levetiracetam 2,000 mg (2 x 1,000 mg) PO BID 30 days lidocaine 5% 1 patch topical BID lisinopril 40 mg PO DAILY meloxicam 15 mg PO DAILY PRN naproxen 500 mg PO Q8-12H PRN omeprazole 20 mg PO BID@0630,1630 psyllium husk (Metamucil) 1 tsp PO DAILY PRN sitagliptin phosphate (Januvia) 100 mg PO DAILY sucralfate (Carafate) 10 mL PO BEDTIME Tobacco use date assessed: 12/22/23 Dental Screening Dental Screen Date: 09/01/23 [place] [facility] [place]out Flare Up HPI Details 58-year-old female presents to the [facility] to discuss her medical condition. She was recently at the hospital and discharged from the emergency room with a diagnosis of gout. Patient speaks Senegalese only and history was obtained through an compliance testing analyst via the iPad. Patient reports pain which has now improved after medication. Able to walk with no difficulty. [facility] Medical History Trigger finger of left hand Diabetic retinopathy Type 2 diabetes mellitus with hyperglycemia, with long-term current use of insulin Essential hypertension Hyperlipidemia LDL goal <100 Gastroparesis Hyperlipidemia Depression Asthma Epilepsy Hypertension Surgical History Hx of colonoscopy (~06/2018) H/O esophagogastroduodenoscopy (03/14/18) History of ankle surgery H/O section Family History Mother Diabetes Father Diabetes Social History Household Members: Children Housing: Apartment Do you presently have visiting nurse or other home services: Yes (vna - pt has locked box) Alcohol intake: never Patient Tobacco Use Status: Never used Tobacco e-Cigarette/Vaping Use: Never Used Second Hand Smoke Exposure: No service: No Current occupational status: unemployed Cognitive needs: Yes (cane/walker) Hearing needs: No Vision needs: Yes (glasses) Questionnaire Thrive Questionnaire Date Thrive assessed: 08/15/23 IRWIN-7 AMB Questionnaire IRWIN-7 Date IRWIN - 7 assessed: 08/15/23 Source: Developed by Drs. Vasu Gentile, Harriet Garrido, Carlitos Goldstein and colleagues, with an educational shira from [email or web address]. Physical exam (Primary Care) Vital Signs: Last Vital Signs Pulse 74 02/13/24 09:07 BP 148/90 H 02/13/24 09:07 Pulse Ox 95 02/13/24 09:07 Oxygen Delivery Method Room Air 02/13/24 09:07 Care Plan Goal for BP management: Blood pressure is in range. BMI result Body Mass Index 30.6 Tobacco/Smoking Status: Tobacco use Status Tobacco use date assessed 12/22/23 02/13/24 09:14 Patient Tobacco Use Status Never used Tobacco 02/13/24 09:14 e-Cigarette/Vaping Use Never Used 02/13/24 09:14 Thrive Assessment: Date of Thrive Assessment Date Thrive assessed 08/15/23 02/13/24 09:14 Extrem Other: Left foot: Swelling has improved. No redness. Full range of motion at all the toes. Assessment and Plan Assessment & Plan (1) Gout: Code(s): M10.9 - Gout, unspecified Plan: Continue current medications. Coding Level of Care Code Est Pt Level 3 (10157) Complex EM visit Add On G2211 Diagnoses Gout M10.9
== END 2024-02-13 10:42 | disposition home or self-care (01) ==
PROVIDERS: Visit Provider Internal Medicine
DX: M10.9 Gout, unspecified (principal)
CPT/HCPCS: 99213; G2211

== ENCOUNTER 2024-03-19 21:47 | Emergency (ER) | payer OTHER, SELFPAY ==
[2024-03-19 21:49] VITALS: BP 134/78; PULSE 96; O2SAT 99
[2024-03-19 21:55] VITALS: BP 170/85; PULSE 95; RESP 16; TEMP 36.4; O2SAT 97; BMI 29.2
--- NOTE | 2024-03-19 22:06 | MHC.EDTECH ---
Patient left without being seen
== END 2024-03-19 23:08 | disposition left against medical advice (07) ==
PROVIDERS: Emergency Provider Emergency Medicine
DX: R21 Rash and other nonspecific skin eruption (principal)
CPT/HCPCS: 99281

== ENCOUNTER 2024-04-02 08:50 | Emergency (ER) | payer OTHER, SELFPAY ==
--- NOTE | ~2024-04-02 | XR_ITS ---
EXAMINATION: XR HIP, LEFT CLINICAL INFORMATION: Fall with hip pain COMPARISON: None available. TECHNIQUE: Single view pelvis along with CT abdomen and pelvis 11/22/2023 of the left hip. FINDINGS: No fracture. Alignment is anatomic. Hip joint space is maintained. Soft tissues are unremarkable. The pelvis appears unremarkable. Mild degenerative changes present in the visualized spine. XR/XR hip LT w PEL1V IMPRESSION: No evidence of acute traumatic osseous injury in the pelvis or hips. Electronically signed by: Moe Capps MD 04/02/2024 02:02 PM EDT
--- NOTE | ~2024-04-02 | XR_ITS ---
EXAMINATION: XR KNEE, LEFT CLINICAL INFORMATION: Knee pain after fall COMPARISON: Left femur 05/27/2021 TECHNIQUE: Four views of the left knee. FINDINGS: No fracture or joint effusion. Alignment is anatomic. Joint spaces are maintained. Marked Monckeberg type vascular calcifications are seen. XR/XR knee LT 3V IMPRESSION: No evidence of an acute osseous injury. Electronically signed by: Moe Capps MD 04/02/2024 11:14 AM EDT
[2024-04-02 09:21] VITALS: BP 191/98; PULSE 100; RESP 16; TEMP 36.8; O2SAT 95; BMI 31.0
--- NOTE | 2024-04-02 11:03 | ED_ITS ---
HPI - Extremity Injury (Lower) General Chief Complaint: Extremity Injury, Lower Stated Complaint: l knee pain swelling Time Seen by Provider: 04/02/24 10:40 Source: patient and gum machine operator (greenlandic) Mode of arrival: ambulatory Limitations: language barrier (Bulgarian speaking) History of Present Illness ED Provider: DWIGHT LIZARRAGA PA-C HPI Narrative: 58-year-old female with past medical history significant for as HDL, hypertension, epilepsy, insulin-dependent type 2 diabetes, diabetic retinopathy, gastroparesis presents to the ED today for evaluation of left knee pain status post fall on Tuesday (4 days ago). Patient reports losing her balance and falling onto her knees. Denies head strike or LOC. Not on AC. Since this time, has had continued pain in her left knee, radiating up into her left thigh/hip. Has been taking Tylenol and Motrin with minimal relief. Last dose was 2 days ago. Denies fever, chills, N/V, numbness/tingling/weakness of the LLE. Denies new injury/ trauma. Denies inability to ambulate. reserve operator utilized throughout visit to communicate with patient. Related Data Home Medications ?Medication ?Instructions ?Recorded ?Confirmed psyllium husk 3.4 gram/5.4 gram 1 tsp PO DAILY PRN Constipation 11/22/23 02/13/24 oral powder (Metamucil) fluticasone propionate 50 1 spray intranasal DAILY PRN 11/23/23 02/13/24 mcg/actuation nasal allergies spray,suspension lidocaine 5 % topical patch 1 patch topical BID 11/23/23 02/13/24 sucralfate 100 mg/mL oral 10 ml PO BEDTIME 11/23/23 02/13/24 suspension (Carafate) Previous Rx's ?Medication ?Instructions ?Recorded flash glucose scanning reader #1 ea 06/05/23 (FreeStyle Guerda 2 [place]) acetaminophen 325 mg tablet 650 mg (2 x 325 mg) PO Q6H PRN 07/06/23 Pain #90 tabs amitriptyline 10 mg tablet 40 mg (4 x 10 mg) PO DAILY 90 days 09/05/23 #360 tabs lactulose 20 gram/30 mL oral 20 g (30 mL) PO BID #1,200 mL 09/14/23 solution atorvastatin 80 mg tablet 80 mg PO BEDTIME #90 tabs 10/11/23 cetirizine 10 mg tablet (Zyrtec) 10 mg PO DAILY PRN allergy 10/14/23 symptoms #90 tabs cyclobenzaprine 10 mg tablet 10 mg PO DAILY PRN muscle spasm 7 10/25/23 days #7 tabs canagliflozin 300 mg tablet 300 mg PO DAILY #90 tabs 11/29/23 (Invokana) aspirin 81 mg tablet,delayed 81 mg PO DAILY #90 tabs 12/11/23 release insulin glargine 100 unit/mL (3 45 unit (0.45 mL) subcut QAM #15 mL 01/13/24 mL) subcutaneous pen (Lantus Solostar U-100 Insulin) insulin lispro 100 unit/mL See Protocol subcut TIDAC #15 mL 01/13/24 subcutaneous pen acetaminophen 500 mg tablet 500 mg PO Q6H PRN pain #30 tabs 01/16/24 (Tylenol Extra Strength) benzonatate 100 mg capsule 100 mg PO TID PRN cough #14 caps 01/16/24 docusate sodium 100 mg capsule 100 mg PO BID PRN for constipation 01/17/24 #60 caps ezetimibe 10 mg tablet 10 mg PO DAILY #90 tabs 01/29/24 naproxen 500 mg tablet 500 mg PO Q8-12H PRN pain (scale 01/31/24 score 1-3) #20 tabs sitagliptin phosphate 100 mg 100 mg PO DAILY #90 tabs 02/16/24 tablet (Januvia) furosemide 20 mg tablet 20 mg PO DAILY 90 days #90 tabs 02/20/24 lisinopril 40 mg tablet 40 mg PO DAILY #90 tabs 02/20/24 duloxetine 30 mg capsule,delayed 30 mg PO DAILY #90 caps 02/21/24 release hydrochlorothiazide 12.5 mg tablet 12.5 mg PO DAILY 90 days #90 tabs 02/28/24 flash glucose sensor (FreeStyle #1 ea 03/19/24 Guerda 2 Sensor kit) amlodipine 5 mg tablet 5 mg PO DAILY 90 days #90 tabs 03/21/24 meloxicam 15 mg tablet 15 mg PO DAILY PRN Pain #30 tabs 03/21/24 levetiracetam 1,000 mg tablet 2,000 mg (2 x 1,000 mg) PO BID 30 03/22/24 days #120 tabs omeprazole 20 mg capsule,delayed 20 mg PO BID@0630,1630 #180 caps 03/25/24 release carvedilol 6.25 mg tablet 6.25 mg PO BID #180 tabs 04/02/24 Allergies Allergy/AdvReac Type Severity Reaction Status Date / Time No Known Allergies Allergy Verified 04/02/24 09:24 Review of Systems Review of Systems: Constitutional: No fever, chills, fatigue, night sweats, weight changes ENT/Mouth: No ear pain, hearing loss, nasal congestion, sinus pain, rhinorrhea, sore throat Eyes: No eye pain, swelling, redness, vision changes, discharge Cardio: No chest pain, palpitations, ENRIQUEZ, orthopnea, peripheral edema Pulm: No SOB, cough, sputum, wheezing, dyspnea, hemoptysis GI: No nausea, vomiting, hematemesis, abdominal pain, diarrhea, constipation, hematochezia, melena : No irregular bleeding, dysuria, frequency, urgency, hesitancy, hematuria, flank pain, urinary flow changes, urinary incontinence or retention MSK: No back pain, neck pain, joint pain, myalgias, +left knee pain Skin: No lesions, rashes Neuro: No weakness, numbness, paresthesias, LOC, dizziness, headache Psych: No anxiety/panic, depression, SI/HI, AH/VH All other systems reviewed and are negative. [facility] Past Medical History Attestation statement: The following information was validated with the patient. Source: old records reviewed and nursing notes reviewed Medical History Trigger finger of left hand Diabetic retinopathy Type 2 diabetes mellitus with hyperglycemia, with long-term current use of insulin Essential hypertension Hyperlipidemia LDL goal <100 Gastroparesis Hyperlipidemia Depression Asthma Epilepsy Hypertension Surgical History Hx of colonoscopy (~06/2018) H/O esophagogastroduodenoscopy (03/14/18) History of ankle surgery H/O section Family History Family History Mother Diabetes Father Diabetes Social History Social History Household Members: Children Housing: Apartment Do you presently have visiting nurse or other home services: Yes (vna - pt has locked box) Alcohol intake: never Patient Tobacco Use Status: Never used Tobacco e-Cigarette/Vaping Use: Never Used Second Hand Smoke Exposure: No Advance Directives: No Advance Directives Information Provided: No service: No Current occupational status: unemployed Cognitive needs: Yes (cane/walker) Hearing needs: No Vision needs: Yes (glasses) Physical Exam Vital Signs: Vital Signs: Last Vital Signs Temp 97.8 F 04/02/24 14:45 Pulse 91 04/02/24 14:45 Resp 16 04/02/24 14:45 BP 190/99 H 04/02/24 14:45 Pulse Ox 95 04/02/24 14:45 O2 Del Method Room Air 04/02/24 14:45 BMI result Body Mass Index 31.0 Vital signs stable General: Well appearing, in no acute distress. Skin: Warm, dry, intact. No rashes or lesions. Head: Normocephalic, atraumatic. EENT: Hearing is intact b/l. Conjunctiva clear. Sclera is anicteric. PERRLA. Moist mucous membranes.? Cardiac: Chest wall symmetric. RRR. No MRG. No JVD. Lungs: Normal respiratory effort without accessory muscle use. CTA bilaterally. No rales, rhonchi, or wheezes.? Back: No midline spinous or paraspinal tenderness. No step off deformity. Ext: +no overlying skin changes, deformity noted to left knee. Tender to palpation of anterior knee without palpable deformity, crepitus, warmth. Full ROM intact to left knee with active and passive range of motion. No tenderness over left hip. No palpable deformity. Ambulating with steady gait unassisted. 2+ PT/DP pulse intact. Neuro: AOx3. Normal speech. Psych: Appropriate mood and affect. Responds appropriately to questions. Course Course Course Narrative: 1430 -- x-ray left knee and left hip unremarkable. No noted fracture. Likely knee strain. Patient reports improvement in pain after receiving Toradol. Patient has remained stable throughout ED visit today. Discussed worrisome signs and symptoms and when to return to the ED. All questions answered at this time. Patient is agreeable with disposition and stable for discharge. Medications Administered Discontinued Medications Generic Name Dose Route Start Last Admin Trade Name Alberto PRN Reason Stop Dose Admin Amlodipine Besylate 5 mg 04/02/24 14:18 04/02/24 14:43 Amlodipine Besylate 5 Mg Tablet PO 04/02/24 14:19 5 mg ONCE ONE Administration Protocol Ketorolac Tromethamine 30 mg 04/02/24 11:12 04/02/24 11:31 Ketorolac Tromethamine 30 Mg/Ml Vial IM 04/02/24 11:13 30 mg ONCE ONE Administration Medical Decision Making Medical Decision Making MDM Narrative: 58-year-old female with past medical history significant for as HDL, hypertension, epilepsy, insulin-dependent type 2 diabetes, diabetic retinopathy, gastroparesis presents to the ED today for evaluation of left knee pain status post fall on Tuesday (4 days ago). Hypertensive to 190s over 90s. Vitals otherwise WNL. She is nontoxic-appearing and in no acute distress. On exam, there is no overlying skin changes, deformity noted to left knee. Tender to palpation of anterior knee without palpable deformity, crepitus, warmth. Full ROM intact to left knee with active and passive range of motion. No tenderness over left hip. No palpable deformity. Ambulating with steady gait unassisted. 2+ PT/DP pulse intact. Differential diagnosis includes contusion, MSK sprain/strain, arthritis. Lower suspicion for fracture or dislocation. Presentation not consistent with gout, pseudogout, Lyme arthritis, septic joint, neurovascular compromise, threat to limb, compartment syndrome. Plan for imaging, pain control and re-evaluation. Differential Diagnosis Differential Diagnoses: The differential diagnosis associated with the presentation includes As above Admission/Observation Not indicated Independent Interpretation I performed an independent interpretation of an: Plain X-Ray Interpretation: X-ray left knee without fracture, agree with radiologist's interpretation. Radiology Impression Discussion of test interpretation with radiology: I have reviewed the radiologist's reading. Radiologist Impression: EXAMINATION: XR HIP, LEFT CLINICAL INFORMATION: Fall with hip pain COMPARISON: None available. TECHNIQUE: Single view pelvis along with CT abdomen and pelvis 11/22/2023 of the left hip. FINDINGS: No fracture. Alignment is anatomic. Hip joint space is maintained. Soft tissues are unremarkable. The pelvis appears unremarkable. Mild degenerative changes present in the visualized spine. XR/XR hip LT w PEL1V IMPRESSION: No evidence of acute traumatic osseous injury in the pelvis or hips. Electronically signed by: Moe Capps MD 04/02/2024 02:02 PM EDT RP EXAMINATION: XR KNEE, LEFT CLINICAL INFORMATION: Knee pain after fall COMPARISON: Left femur 05/27/2021 TECHNIQUE: Four views of the left knee. FINDINGS: No fracture or joint effusion. Alignment is anatomic. Joint spaces are maintained. Marked Monckeberg type vascular calcifications are seen. XR/XR knee LT 3V IMPRESSION: No evidence of an acute osseous injury. Electronically signed by: Moe Capps MD 04/02/2024 11:14 AM EDT RP External Record Review External record reviewed: Inpatient record Prescription Management I considered prescription management with: Pain Medication Social Determinants Patient?s care significantly limited by Social Determinants of Health including: Other Social Determinant of Health Critical Care Time Critical Care Time Critical Care Time: No Discharge Plan Discharge Clinical Impression: Pain in left knee, Hypertensive urgency Patient Disposition: Home, Self-Care Instructions: Knee Pain (ED), R.I.C.E. Treatment (ED) Additional Instructions: You were evaluated in the Emergency Department today for your left knee pain. Your evaluation did not show signs of medical conditions requiring emergent intervention at this time. Use ice several times per day for 20 minutes at a time for the next 48 hours and then change to heat. We recommend you take 600mg ibuprofen every 6 hours or tylenol 650mg every 6 hours as needed for pain. If needed, you can alternate these medications so that you take one medication every 3 hours. For example, at noon take ibuprofen, then at 3pm take tylenol, then at 6pm take ibuprofen. Please schedule an appointment for follow-up with your primary care provider this week for further evaluation of your symptoms. Return to the Emergency Department if you experience worsening back pain, difficulty walking, fevers, numbness, tingling, incontinence, or any other concerning symptoms. In the case of an emergency call 911. Your blood pressure was elevated in the ED today. You were given a dose of your amlodipine today. Please follow up with your primary care provider as needed. Prescriptions: No Action (DME) [email or web address] Guerda 2 [place] Misc See Rx Instructions .Route Qty: 1 0RF Rx Instructions: As directed acetaminophen 325 mg tablet 650 mg PO Q6H PRN (Reason: Pain) Qty: 90 0RF amitriptyline 10 mg tablet 40 mg PO DAILY 90 Days Qty: 360 0RF atorvastatin 80 mg tablet 80 mg PO BEDTIME Qty: 90 1RF cetirizine [Zyrtec] 10 mg tablet 10 mg PO DAILY PRN (Reason: allergy symptoms) Qty: 90 0RF cyclobenzaprine 10 mg tablet 10 mg PO DAILY PRN (Reason: muscle spasm) 7 Days Qty: 7 0RF Invokana 300 mg tablet 300 mg PO DAILY Qty: 90 1RF aspirin 81 mg tablet,delayed release (DR/EC) 81 mg PO DAILY Qty: 90 3RF insulin lispro 100 unit/mL insulin pen See Protocol subcut TIDAC Qty: 15 1RF Protocol: Insulin Correction Scale Less than or equal to 110 ---- Give (units): 0 111 to 150 Give (units): 0 151 to 200 Give (units): 2 201 to 250 Give (units): 4 251 to 300 Give (units): 6 301 to 350 Give (units): 8 Greater than 350 Give (units): 10 Call MD if Blood Glucose > : 350 Rx Instructions: 5 units if BG <250, 10 units if Bg > 250 insulin glargine [Lantus Solostar U-100 Insulin] 100 unit/mL (3 mL) insulin pen 45 unit subcut QA Qty: 15 3RF docusate sodium 100 mg capsule 100 mg PO BID PRN (Reason: for constipation) Qty: 60 2RF ezetimibe 10 mg tablet 10 mg PO DAILY Qty: 90 1RF Januvia 100 mg tablet 100 mg PO DAILY Qty: 90 0RF furosemide 20 mg tablet 20 mg PO DAILY 90 Days Qty: 90 1RF Protocol: Hold for SBP< HOLD for SBP < : 90 lisinopril 40 mg tablet 40 mg PO DAILY Qty: 90 1RF duloxetine 30 mg capsule,delayed release(DR/EC) 30 mg PO DAILY Qty: 90 1RF hydrochlorothiazide 12.5 mg tablet 12.5 mg PO DAILY 90 Days Qty: 90 1RF (DME) FreeStyle Guerda 2 Sensor Kit See Rx Instructions .Route Qty: 1 3RF Rx Instructions: As directed amlodipine 5 mg tablet 5 mg PO DAILY 90 Days Qty: 90 1RF meloxicam 15 mg tablet 15 mg PO DAILY PRN (Reason: Pain) Qty: 30 0RF levetiracetam 1,000 mg tablet 2,000 mg PO BID 30 Days Qty: 120 0RF omeprazole 20 mg capsule,delayed release(DR/EC) 20 mg PO BID@0630,1630 Qty: 180 1RF carvedilol 6.25 mg tablet 6.25 mg PO BID Qty: 180 0RF Rx Instructions: must administer with a meal/food lactulose 20 gram/30 mL solution 20 g PO BID Qty: 1200 0RF Metamucil 3.4 gram/5.4 gram powder 1 tsp PO DAILY PRN (Reason: Constipation) Rx Instructions: mix into at least 8 oz of water or juice before administering sucralfate [Carafate] 100 mg/mL Suspension 10 ml PO BEDTIME Rx Instructions: before meals lidocaine 5 % Adhesive Patch,Medicated 1 patch TOPICAL BID Rx Instructions: leave on most painful area for up to 12 hrs fluticasone propionate 50 mcg/actuation [place],Suspension 1 spray INTRANASAL DAILY PRN (Reason: allergies) Rx Instructions: administer into each nostril acetaminophen [Tylenol Extra Strength] 500 mg tablet 500 mg PO Q6H PRN (Reason: pain) Qty: 30 0RF benzonatate 100 mg capsule 100 mg PO TID PRN (Reason: cough) Qty: 14 0RF naproxen 500 mg tablet 500 mg PO Q8-12H PRN (Reason: pain (scale score 1-3)) Qty: 20 0RF [place] [facility] [facility] [place] [facility] [place] [facility] [place] [facility] [place] Interventions: ED Discharge Assessment Last Done: 04/02/24 14:45 Discharge Date/Time: 04/02/24 14:46 Print Language: Bulgarian
[2024-04-02] MEDS: Ketorolac Tromethamine 30 MG/ML VIAL IM (11:31)
[2024-04-02 14:18] VITALS: BP 175/78; PULSE 93; RESP 18; TEMP 36.4; O2SAT 95
[2024-04-02 14:42] VITALS: BP 190/99; PULSE 91; RESP 16; TEMP 36.6; O2SAT 95
[2024-04-02] MEDS: amLODIPine Besylate 5 MG TABLET PO (14:43)
[2024-04-02 14:45] VITALS: BP 190/99; PULSE 91; RESP 16; TEMP 36.6; O2SAT 95
== END 2024-04-02 14:46 | disposition home or self-care (01) ==
PROVIDERS: Emergency Provider Emergency Medicine Emergency Medical Services
DX: M25.562 Pain in left knee (principal); I16.0 Hypertensive urgency; E11.9 Type 2 diabetes mellitus without complications; G40.909 Epilepsy, unspecified, not intractable, without status epilepticus; I10 Essential (primary) hypertension
CPT/HCPCS: 73502; 73562; 96372; 99284; J1885

== ENCOUNTER 2024-04-26 13:30 | Outpatient (AMB) | payer OTHER, SELFPAY ==
[2024-04-26 13:32] VITALS: BP 162/92; PULSE 90; O2SAT 96; BMI 31.2
--- NOTE | 2024-04-26 13:32 | A.OFFPC_ITS ---
Vital Signs 04/26/24 13:32 Height 5 ft 3 in Weight 176 lb BMI 31.2 BP 162/92 H Blood Pressure Location Lt brachial Position Sitting Pulse 90 Pulse Source Pulse Oximeter Pulse Oximetry (%) 96 Oxygen Delivery Method Room Air Intake Visit Reasons: [facility] [place] 04/02 l knee pain swelling Revenue Cycle Administrator Required: Yes Revenue Cycle Administrator Language: Remote Sensing Program Manager Name: Estevan [id number] Accompanied by: Self / Same As Patient Allergies No Known Allergies Allergy (Verified 04/26/24 13:32) Tobacco use date assessed: 12/22/23 Dental Screening Dental Screen Date: 09/01/23 HPI HPI Comments History of Present Illness Details 59 y/o female patient who [facility]. Pt was admitted at [facility] on 04/02/24 for left knee contusion. Pt had a mechanical Fall at home and landed on her left knee. She was discharged home 04/02/24 on Naproxen and Flexeril. Accompanied by Director Of Materials Management who provides history. Today sh eis c/o severe pain left knee and nothing has worked so far for pain control. Pt asking for something stronger. Director Of Materials Management reports that Pt has not been able to check her BG due to malfunction of Freestyle Guerda reader. Patient is unable to obtain a new reader due to Insurance coverage (too soon for a new change). She is eligible for new reader in May. Her Director Of Materials Management also reports that Patient does not have enough Keppra at home and no more refills. COUNT INCLUDES THE [facility] Medical History Trigger finger of left hand Diabetic retinopathy Type 2 diabetes mellitus with hyperglycemia, with long-term current use of insulin Essential hypertension Hyperlipidemia LDL goal <100 Gastroparesis Hyperlipidemia Depression Asthma Epilepsy Hypertension Surgical History Hx of colonoscopy (~06/2018) H/O esophagogastroduodenoscopy (03/14/18) History of ankle surgery H/O section Family History Mother Diabetes Father Diabetes Social History Household Members: Children Housing: Apartment Do you presently have visiting nurse or other home services: Yes (vna - pt has locked box) Alcohol intake: never Patient Tobacco Use Status: Never used Tobacco Tobacco use type: Cigarette e-Cigarette/Vaping Use: Never Used Second Hand Smoke Exposure: No service: No Current occupational status: unemployed Cognitive needs: Yes (cane/walker) Hearing needs: No Vision needs: Yes (glasses) Questionnaire PHQ-9 Over the last 2 weeks, how often have you been bothered by any of the following problems? 1. Little interest or pleasure in doing things: not at all 2. Feeling down, depressed, or hopeless: several days 3. Trouble falling or staying asleep, or sleeping too much: not at all 4. Feeling tired or having little energy: several days 5. Poor appetite or overeating: not at all 6. Feeling bad about yourself - or that you are a failure or have let yourself or your family down: not at all 7. Trouble concentrating on things, such as reading the newspaper or watching television: not at all 8. Moving or speaking so slowly that other people could have noticed. Or the opposite - being so fidgety or restless that you have been moving around a lot more than usual: not at all 9. Thoughts that you would be better off or of hurting yourself in some way: not at all Total score: 2 Source: Developed by Drs. Vasu Gentile, Carlitos Brice and colleagues, with an educational shira from [employer]. Thrive Questionnaire Date Thrive assessed: 08/15/23 AUDIT C Alcohol Use Questionnaire (AUDIT-C) 1. How often do you have a drink containing alcohol?: Never Total Score: 0 IRWIN-7 AMB Questionnaire IRWIN-7 Date IRWIN - 7 assessed: 08/15/23 Source: Developed by Drs. Vasu Gentile, Carlitos Brice and colleagues, with an educational shira from [employer]. Review of Systems Const All systems reviewed & are unremarkable except as noted in HPI and below Physical exam (Primary Care) Vital Signs: Last Vital Signs Pulse 90 04/26/24 13:32 BP 162/92 H 04/26/24 13:32 Pulse Ox 96 04/26/24 13:32 Oxygen Delivery Method Room Air 04/26/24 13:32 BMI result Body Mass Index 31.2 Tobacco/Smoking Status: Tobacco use Status Tobacco use date assessed 12/22/23 04/26/24 13:41 Patient Tobacco Use Status Never used Tobacco 04/26/24 13:41 Tobacco use type Cigarette 04/26/24 13:41 e-Cigarette/Vaping Use Never Used 04/26/24 13:41 PHQ-9: PHQ-9 Score PHQ-9: Total score 2 04/26/24 13:41 Thrive Assessment: Date of Thrive Assessment Date Thrive assessed 08/15/23 04/26/24 13:41 Const General: cooperative and no acute distress Orientation/consciousness: patient oriented x3 Skin General skin exam: no rashes or lesions noted Neuro General: patient oriented x3, gait normal and moves all extremities Extrem Right lower extremity: normal to inspection and full ROM Left lower extremity: knee Details: tenderness Location: of the patella, normal ROM and ecchymosis; no crepitus Psych Speech and movement: Normal speech and movement present Coding Level of Care Code Est Pt Level 4 (65930) Diagnoses Contusion of left knee, initial encounter S80.02XA Encounter type: initial encounter Time Spent (min) 20 Comment Spent reviewing hospital notes. Assessment & Plan Assessment & Plan (1) Contusion of knee, left: Code(s): S80.02XA - Contusion of left knee, initial encounter Qualifiers: Encounter type: initial encounter Qualified Code(s): S80.02XA - Contusion of left knee, initial encounter Plan: Acetaminophen and NSAIDs for pain relief Ordered Lidocaine Patches Pt declined PT for now. Ordered Flexeril IceHot Plan Called Pharmacy and confirmed that new Rx for Keppra was sent 04/25 Pt was provided with a new Guerda reader from the office. Medications: New lidocaine 5% leave on most painful area for up to 12 hrs 1 patch topical BID 30 ea 0RF S80.02XA - Contusion of left knee, initial encounter diclofenac sodium 1% (Voltaren Arthritis Pain) apply to single elbow, wrist or hand; for hand includes palm/fingers/back of hand 2 grams topical QID 100 grams 0RF S80.02XA - Contusion of left knee, initial encounter Changed From cyclobenzaprine 10 mg PO DAILY 7 days PRN 7 tabs 0RF muscle spasm S80.02XA - Contusion of left knee, initial encounter To cyclobenzaprine 10 mg PO DAILY PRN 14 tabs 0RF muscle spasm S80.02XA - Contusion of left knee, initial encounter
== END 2024-04-26 14:01 | disposition home or self-care (01) ==
PROVIDERS: PCP Internal Medicine; Visit Provider Nurse Practitioner Family
DX: S80.02XA Contusion of left knee, initial encounter (principal)

== ENCOUNTER → 2024-04-26 13:30 | Outpatient (BNVA) | payer OTHER, SELFPAY | PROVIDERS: PCP Internal Medicine; Visit Provider Nurse Practitioner Family | DX: S80.02XD Contusion of left knee, subsequent encounter (principal); W19.XXXD Unspecified fall, subsequent encounter | CPT/HCPCS: 96127; 99212 ==

== ENCOUNTER 2024-05-20 19:41 | Emergency (ER) | payer OTHER, SELFPAY ==
--- NOTE | 2024-05-20 | ECG_ITS ---
Test Reason : SYNCOPE Blood Pressure : / mmHG Vent. Rate : 097 BPM Atrial Rate : 097 BPM P-R Int : 144 ms QRS Dur : 088 ms QT Int : 350 ms P-R-T Axes : 015 -09 017 degrees QTc Int : 444 ms Poor data quality, interpretation may be adversely affected Normal sinus rhythm Moderate voltage criteria for LVH, may be normal variant ( R in aVL , Dexter product ) Nonspecific ST abnormality Abnormal ECG When compared with ECG of 18-DEC-2023 15:47, No significant change was found Referred By: Generic ED Physician Electronically Signed By:Barber Huddleston
[2024-05-20 19:51] VITALS: BP 179/66; BP 186/88; PULSE 100; PULSE 97; RESP 20; TEMP 36.8; O2SAT 100; BMI 32.3
[2024-05-20 19:55] VITALS: O2SAT 100
[2024-05-20 20:38] LABS: Appearance Urine Clear; Color Urine Yellow; Glucose Urine UA >=1000 mg/dL (Negative); Leukocyte Esterase Urine Trace (Negative); Nitrite Urine Negative (Negative); PH 5.5 (5.0-9.0); Specific Gravity - Urine 1.025 (1.005-1.025); UMIC TRIGGER UACC YES; Urine Blood Negative (Negative); Urine Ketones Negative (Negative); Urine Protein 100 (2+) mg/dL (Neg-Trace)
[2024-05-20 20:41] LABS: Bacteria Urine None Seen (None Seen); Hyaline Casts Urine 0-2 /LPF (0-2); RBC Urine 0-2 /HPF (0-2); UACC Culture Trigger YES
[2024-05-20 21:10] LABS: MANUAL DIFF FLAG NO
[2024-05-20 21:12] LABS: Basophils Percent Auto 0.4 % (0-2); Eosinophils Absolute Auto 0.3 X10*3/uL (0.0-0.4); Eosinophils Percent Auto 2.4 % (0-4); Hematocrit 36.6 % (37.0-47.0); Hemoglobin 12.1 g/dl (12.0-16.0); Imm Gran Abs Auto 0.03 X10*3/uL (0.00-0.03); Imm Gran Pct Auto 0.3 % (0.0-0.4); Lymphocytes Absolute Auto 2.2 X10*3/uL (1.2-4.9); Lymphocytes Percent Auto 21.1 % (20-40); Mean Corpuscular HGB Conc 33.1 g/dl (31.0-35.0); Mean Corpuscular Hemoglobin 28.7 pg (27.0-33.0); Mean Corpuscular Volume 86.7 fL (80.0-98.0); Mean Platelet Volume 9.4 fL (9.4-12.3); Monocytes Absolute Auto 0.6 X10*3/uL (0.1-1.2); Monocytes Percent Auto 5.4 % (2-11); Neutrophils Absolute Auto 7.3 x10*3/uL (2.0-8.3); Neutrophils Percent Auto 70.4 % (45-73); Platelet Count 319 X10*3/uL (160-400); Red Blood Count 4.22 X10*6/uL (4.20-5.50); Red Cell Distribution Width 12.8 % (11.0-16.0); White Blood Count 10.3 X10*3/uL (4.8-10.8)
[2024-05-20 21:32] LABS: Troponin-I High Sensitivity 5.2 ng/L (<3.5-17.0)
[2024-05-20 21:34] LABS: Alanine Aminotransferase 12 U/L (0-31); Albumin Level 3.5 g/dL (3.5-5.0); Alkaline Phosphatase 126 U/L (39-117); Anion Gap 18 (12-20); Aspartate Amino Transferase 17 U/L (5-31); Bilirubin Total 0.4 mg/dL (0.0-1.0); Blood Urea Nitrogen 32 mg/dL (9-16); Calcium 9.2 mg/dL (8.4-10.2); Carbon Dioxide 17 mmol/L (22-29); Chloride 107 mmol/L (96-108); Creatinine Clr Calc Pharmacy 61.8; Estimated Glomerular Filt Rate 56; Glucose Random 233 mg/dL (60-115); Potassium 4.3 mmol/L (3.3-5.1); Sodium 138 mmol/L (135-145); Total Protein 7.5 g/dL (6.5-8.0)
[2024-05-20 21:57] VITALS: BP 154/83; PULSE 89; RESP 18; TEMP 36.8; O2SAT 97
[2024-05-21 00:31] LABS: Glucose, Whole Blood 165 mg/dL (60-115)
[2024-05-21 00:32] LABS: Venous Blood Gas Refer to POC result
[2024-05-21 00:33] LABS: VBG Base Excess 3.3 mmol/L; VBG HCO3 27 mmol/L (22-26); VBG pCO2 40 mmHg; VBG pH 7.44 (7.32-7.43); VBG pO2 78 mmHg
--- NOTE | 2024-05-21 00:35 | ED.GENADULT ---
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 Apparently the patient was at christianity She reports that her blood pressure was high ?160/90. She reports that she felt lightheaded and passed out. She did not hit her head or lose consciousness. This was witnessed by her daughter The patient reports that she did not have any chest pain. She currently feels back to her baseline. Denies any pain, lightheadedness, dizziness. Denies any shortness of breath, palpitations She has not had any recent cold symptoms, nausea vomiting, diarrhea Related Data Home Medications ?Medication ?Instructions ?Recorded ?Confirmed psyllium husk 3.4 gram/5.4 gram 1 tsp PO DAILY PRN Constipation 11/22/23 02/13/24 oral powder (Metamucil) fluticasone propionate 50 1 spray intranasal DAILY PRN 11/23/23 02/13/24 mcg/actuation nasal allergies spray,suspension sucralfate 100 mg/mL oral 10 ml PO BEDTIME 11/23/23 02/13/24 suspension (Carafate) Previous Rx's ?Medication ?Instructions ?Recorded acetaminophen 325 mg tablet 650 mg (2 x 325 mg) PO Q6H PRN 07/06/23 Pain #90 tabs amitriptyline 10 mg tablet 40 mg (4 x 10 mg) PO DAILY 90 days 09/05/23 #360 tabs lactulose 20 gram/30 mL oral 20 g (30 mL) PO BID #1,200 mL 09/14/23 solution atorvastatin 80 mg tablet 80 mg PO BEDTIME #90 tabs 10/11/23 cetirizine 10 mg tablet (Zyrtec) 10 mg PO DAILY PRN allergy 10/14/23 symptoms #90 tabs canagliflozin 300 mg tablet 300 mg PO DAILY #90 tabs 11/29/23 (Invokana) aspirin 81 mg tablet,delayed 81 mg PO DAILY #90 tabs 12/11/23 release acetaminophen 500 mg tablet 500 mg PO Q6H PRN pain #30 tabs 01/16/24 (Tylenol Extra Strength) benzonatate 100 mg capsule 100 mg PO TID PRN cough #14 caps 01/16/24 docusate sodium 100 mg capsule 100 mg PO BID PRN for constipation 01/17/24 #60 caps ezetimibe 10 mg tablet 10 mg PO DAILY #90 tabs 01/29/24 naproxen 500 mg tablet 500 mg PO Q8-12H PRN pain (scale 01/31/24 score 1-3) #20 tabs furosemide 20 mg tablet 20 mg PO DAILY 90 days #90 tabs 02/20/24 lisinopril 40 mg tablet 40 mg PO DAILY #90 tabs 02/20/24 duloxetine 30 mg capsule,delayed 30 mg PO DAILY #90 caps 02/21/24 release hydrochlorothiazide 12.5 mg tablet 12.5 mg PO DAILY 90 days #90 tabs 02/28/24 flash glucose sensor (FreeStyle #1 ea 03/19/24 Guerda 2 Sensor kit) amlodipine 5 mg tablet 5 mg PO DAILY 90 days #90 tabs 03/21/24 omeprazole 20 mg capsule,delayed 20 mg PO BID@0630,1630 #180 caps 03/25/24 release carvedilol 6.25 mg tablet 6.25 mg PO BID #180 tabs 04/02/24 insulin glargine 100 unit/mL (3 45 unit (0.45 mL) subcut QAM #15 mL 04/12/24 mL) subcutaneous pen (Lantus Solostar U-100 Insulin) meloxicam 15 mg tablet 15 mg PO DAILY PRN Pain #30 tabs 04/17/24 insulin lispro 100 unit/mL See Protocol subcut TIDAC #15 mL 04/20/24 subcutaneous pen flash glucose scanning reader #1 ea 04/24/24 (FreeStyle Guerda 2 Ashdown) levetiracetam 1,000 mg tablet 2,000 mg (2 x 1,000 mg) PO BID 30 04/25/24 days #120 tabs cyclobenzaprine 10 mg tablet 10 mg PO DAILY PRN muscle spasm 04/26/24 #14 tabs diclofenac sodium 1 % topical gel 2 g topical QID #100 grams 04/26/24 (Voltaren Arthritis Pain) lidocaine 5 % topical patch 1 patch topical BID #30 ea 04/26/24 blood sugar diagnostic (FreeStyle #300 ea 05/01/24 Lite Strips) blood-glucose meter (FreeStyle #1 ea 05/01/24 Lite Meter kit) lancets 28 gauge (FreeStyle #300 ea 05/01/24 Lancets) sitagliptin phosphate 100 mg 100 mg PO DAILY #90 tabs 05/13/24 tablet (Januvia) Allergies Allergy/AdvReac Type Severity Reaction Status Date / Time No Known Allergies Allergy Verified 05/20/24 19:53 Review of Systems Constitutional: Constitutional: Denies body ache(s), Denies chills, Denies fever(s) and Denies frequent falls Eyes: Eyes: Denies blurry vision ENT: Denies vertigo and Denies dizziness Cardiovascular: Cardiovascular: Denies chest pain, Reports syncope, Denies palpitations and Denies dyspnea Respiratory: Respiratory: Denies cough and Denies dyspnea Gastrointestinal: Gastrointestinal: Denies abdominal pain, Denies nausea and Denies vomiting Musculoskeletal: Musculoskeletal: Denies back pain Integumentary/Breasts: Skin/Breast: Denies rash Neurologic: Denies vertigo, Denies dizziness, Reports syncope and Denies frequent falls Psychiatric: Psychiatric: Denies anxiety Endocrine: Endocrine: Denies palpitations PMFSH Past Medical History Medical History Trigger finger of left hand Diabetic retinopathy Type 2 diabetes mellitus with hyperglycemia, with long-term current use of insulin Essential hypertension Hyperlipidemia LDL goal <100 Gastroparesis Hyperlipidemia Depression Asthma Epilepsy Hypertension Surgical History Hx of colonoscopy (~06/2018) H/O esophagogastroduodenoscopy (03/14/18) History of ankle surgery H/O section Family History Family History Mother Diabetes Father Diabetes Social History Social History Household Members: Children Housing: Apartment Do you presently have visiting nurse or other home services: Yes ([facility]na - pt has locked box) Unable to assess alcohol history related to: Unable to respond Alcohol intake: never Patient Tobacco Use Status: Never used Tobacco Tobacco use type: Cigarette Smoked in Last 30 Days: No e-Cigarette/Vaping Use: Never Used Second Hand Smoke Exposure: No Use of substances other than those prescribed or required for medical reasons: No Advance Directives: No Advance Directives Information Provided: No Do you have a plan to hurt others: No Plan Patient : No service: No Current occupational status: unemployed Cognitive needs: Yes (cane/walker) Hearing needs: No Vision needs: Yes (glasses) Physical Exam ED Vital Signs: Vital Signs - 24 hr 05/20/24 19:51 05/20/24 19:55 05/20/24 21:57 Temperature 98.3 F 98.3 F Pulse Rate 97 89 Respiratory Rate 20 18 Blood Pressure 179/66 H 154/83 H Pulse Oximetry 100 100 97 Oxygen Delivery Method Room Air Room Air Room Air BMI result Body Mass Index 32.3 Const General: healthy appearing, comfortable, no acute distress, alert and awake Nutritional Appearance: well nourished Orientation/consciousness: patient oriented x3 HENMT Head: Yes normocephalic and Yes atraumatic Eyes Eyelids: Yes eyelids normal Conjunctivae: conjunctivae normal Sclerae: sclerae normal Corneas: corneas normal Pupils: Equal, round and reactive pupils present EOM: EOMs intact bilaterally Neck Neck: Yes full ROM Resp Effort & Inspection: normal respiratory effort, able to speak in complete sentences, no audible wheezes and not labored Auscultation: clear to auscultation bilaterally Cardio Rate: regular rate Rhythm: regular rhythm GI Inspection: No distended Palpation (GI): Soft to palpation, not firm, nontender, no guarding and not rigid Skin General skin exam: elasticity normal Neuro General: patient oriented x3 Cranial nerves: Yes CN's II-XII intact bilaterally, Yes Equal, round and reactive pupils present and Yes Bilaterally intact EOM present Cognition (Neuro): normal cognition Extrem Other: Moving all extremities well without any obvious deformities Course Reevaluation(s) Reevaluation #1: Patient is not acidotic on VBG, her beta hydroxybutyrate is within normal limits, she is stable for discharge Time: 00:48 Medical Decision Making Medical Decision Making MDM Narrative: 59-year-old female with past medical history as documented above presents for evaluation of a reported witnessed syncopal episode. She believes this was related to her high blood pressure. Her blood pressure in the ER is 154/83, I do not think this was the likely cause of her syncopal episode. The patient's labs show no leukocytosis or left shift. She is not significantly anemic. Her hemoglobin hematocrit are around her baseline of 11-12. Her hematocrit is usually around 34-35 and today is 36.6. Chemistries are significant for a carbon dioxide of 17, she is a diabetic but she has no elevated anion gap. We will get a VBG and a beta hydroxybutyrate. Her sugar is 233, I have a low suspicion for DKA at this time. The patient's troponin is normal at 5.2 and the patient never had any chest pain. ACS is less likely. Her EKG is normal sinus rhythm with a rate of [address] segment elevation SC. it is possible that she had a vasovagal episode during the christianity service. She has no chest pain or abdominal pain, doubt AAA, she is not hypoxic, tachycardic or tachypneic to suggest respiratory cause such as PE. The patient feels back to her baseline, she is stable for discharge. Differential Diagnosis Differential Diagnoses: The differential diagnosis associated with the presentation includes Syncope Chest pain Arrhythmia CHF PE Dehydration Vasovagal syncope Admission/Observation Consideration of admission/observation: Escalation of care including admission/observation considered Consider admission due to syncope, however the patient is back to her baseline, her workup was largely unremarkable. Lab Data MDM Lab Attestation statement: I reviewed the patient's lab results. As above 05/20/24 21:04 05/20/24 21:06 Labs: Lab Results 05/20/24 05/20/24 05/20/24 Range/Units 20:33 21:04 21:06 WBC 10.3 (4.8-10.8) X10*3/uL RBC 4.22 (4.20-5.50) X10*6/uL Hgb 12.1 (12.0-16.0) g/dl Hct 36.6 L (37.0-47.0) % MCV 86.7 (80.0-98.0) fL MCH 28.7 (27.0-33.0) pg MCHC 33.1 (31.0-35.0) g/dl RDW 12.8 (11.0-16.0) % Plt Count 319 (160-400) X10*3/uL MPV 9.4 (9.4-12.3) fL Immature Gran % (Auto) 0.3 (0.0-0.4) % Neut % (Auto) 70.4 (45-73) % Lymph % (Auto) 21.1 (20-40) % [place] % (Auto) 5.4 (2-11) % Eos % (Auto) 2.4 (0-4) % Baso % (Auto) 0.4 (0-2) % Lymph # (Auto) 2.2 (1.2-4.9) X10*3/uL [place] # (Auto) 0.6 (0.1-1.2) X10*3/uL Eos # (Auto) 0.3 (0.0-0.4) X10*3/uL Baso # (Auto) 0.0 (0.0-0.2) X10*3/uL Abs Immat Gran (auto) 0.03 (0.00-0.03) X10*3/uL Absolute Neuts (auto) 7.3 (2.0-8.3) x10*3/uL Absolute Nucleated RBC 0.000 (0.0-0.012) X10*3/uL Nucleated RBC % (auto) 0.0 (0.0-0.2) /100WBC VBG pH (7.32-7.43) VBG pCO2 mmHg VBG pO2 mmHg VBG HCO3 (22-26) mmol/L VBG O2 Saturation % VBG Base Excess mmol/L Sodium 138 (135-145) mmol/L Potassium 4.3 (3.3-5.1) mmol/L Chloride 107 (96-108) mmol/L Carbon Dioxide 17 L (22-29) mmol/L Anion Gap 18 (12-20) BUN 32 H (9-16) mg/dL Creatinine 1.01 (0.5-1.4) mg/dL Estim Creat Clear Calc 61.8 Estimated GFR 56 POC Glucose (60-115) mg/dL Random Glucose 233 H (60-115) mg/dL Calcium 9.2 D (8.4-10.2) mg/dL Total Bilirubin 0.4 (0.0-1.0) mg/dL AST 17 (5-31) U/L ALT 12 (0-31) U/L Alkaline Phosphatase 126 H (39-117) U/L Troponin I High Sens 5.2 (<3.5-17.0) ng/L Total Protein 7.5 (6.5-8.0) g/dL Albumin 3.5 (3.5-5.0) g/dL Beta-Hydroxybutyrate Cancelled Urine Color Yellow Urine Appearance Clear Urine pH 5.5 (5.0-9.0) Ur Specific [place] 1.025 (1.005-1.025) Urine Protein 100 (2+) H (Neg-Trace) mg/dL Urine Glucose (UA) >=1000 H (Negative) mg/dL Urine Ketones Negative (Negative) mg/dL Urine Blood Negative (Negative) Urine Nitrite Negative (Negative) Ur Leukocyte Esterase Trace H (Negative) Urine RBC 0-2 (0-2) /HPF Urine WBC 6-10 H (0-5) /HPF Ur Squamous Epith Cells 3-5 (0-2) /HPF Urine Bacteria None Seen (None Seen) Hyaline Casts 0-2 (0-2) /LPF 05/21/24 Range/Units 00:28 WBC (4.8-10.8) X10*3/uL RBC (4.20-5.50) X10*6/uL Hgb (12.0-16.0) g/dl Hct (37.0-47.0) % MCV (80.0-98.0) fL MCH (27.0-33.0) pg MCHC (31.0-35.0) g/dl RDW (11.0-16.0) % Plt Count (160-400) X10*3/uL MPV (9.4-12.3) fL Immature Gran % (Auto) (0.0-0.4) % Neut % (Auto) (45-73) % Lymph % (Auto) (20-40) % [place] % (Auto) (2-11) % Eos % (Auto) (0-4) % Baso % (Auto) (0-2) % Lymph # (Auto) (1.2-4.9) X10*3/uL [place] # (Auto) (0.1-1.2) X10*3/uL Eos # (Auto) (0.0-0.4) X10*3/uL Baso # (Auto) (0.0-0.2) X10*3/uL Abs Immat Gran (auto) (0.00-0.03) X10*3/uL Absolute Neuts (auto) (2.0-8.3) x10*3/uL Absolute Nucleated RBC (0.0-0.012) X10*3/uL Nucleated RBC % (auto) (0.0-0.2) /100WBC VBG pH 7.44 H (7.32-7.43) VBG pCO2 40 mmHg VBG pO2 78 mmHg VBG HCO3 27 H (22-26) mmol/L VBG O2 Saturation 98.0 % VBG Base Excess 3.3 mmol/L Sodium (135-145) mmol/L Potassium (3.3-5.1) mmol/L Chloride (96-108) mmol/L Carbon Dioxide (22-29) mmol/L Anion Gap (12-20) BUN (9-16) mg/dL Creatinine (0.5-1.4) mg/dL Estim Creat Clear Calc Estimated GFR POC Glucose 165 H (60-115) mg/dL Random Glucose (60-115) mg/dL Calcium (8.4-10.2) mg/dL Total Bilirubin (0.0-1.0) mg/dL AST (5-31) U/L ALT (0-31) U/L Alkaline Phosphatase (39-117) U/L Troponin I High Sens (<3.5-17.0) ng/L Total Protein (6.5-8.0) g/dL Albumin (3.5-5.0) g/dL Beta-Hydroxybutyrate Urine Color Urine Appearance Urine pH (5.0-9.0) Ur Specific [place] (1.005-1.025) Urine Protein (Neg-Trace) mg/dL Urine Glucose (UA) (Negative) mg/dL Urine Ketones (Negative) mg/dL Urine Blood (Negative) Urine Nitrite (Negative) Ur Leukocyte Esterase (Negative) Urine RBC (0-2) /HPF Urine WBC (0-5) /HPF Ur Squamous Epith Cells (0-2) /HPF Urine Bacteria (None Seen) Hyaline Casts (0-2) /LPF Independent Interpretation I performed an independent interpretation of an: EKG (Sinus rhythm with a rate of [address] segment elevation SC, nondiagnostic EKG) Discharge Plan Discharge Clinical Impression: Syncope Patient Disposition: Home, Self-Care Instructions: Syncope (ED) Additional Instructions: Your workup in the ER today was reassuring. This includes your blood work, your EKG. Take all your medications as prescribed. Follow-up with your primary doctor, return for new or worsening symptoms Prescriptions: No Action acetaminophen 325 mg tablet 650 mg PO Q6H PRN (Reason: Pain) Qty: 90 0RF amitriptyline 10 mg tablet 40 mg PO DAILY 90 Days Qty: 360 0RF atorvastatin 80 mg tablet 80 mg PO BEDTIME Qty: 90 1RF cetirizine [Zyrtec] 10 mg tablet 10 mg PO DAILY PRN (Reason: allergy symptoms) Qty: 90 0RF Invokana 300 mg tablet 300 mg PO DAILY Qty: 90 1RF aspirin 81 mg tablet,delayed release (DR/EC) 81 mg PO DAILY Qty: 90 3RF docusate sodium 100 mg capsule 100 mg PO BID PRN (Reason: for constipation) Qty: 60 2RF ezetimibe 10 mg tablet 10 mg PO DAILY Qty: 90 1RF furosemide 20 mg tablet 20 mg PO DAILY 90 Days Qty: 90 1RF Protocol: Hold for SBP< HOLD for SBP < : 90 lisinopril 40 mg tablet 40 mg PO DAILY Qty: 90 1RF duloxetine 30 mg capsule,delayed release(DR/EC) 30 mg PO DAILY Qty: 90 1RF hydrochlorothiazide 12.5 mg tablet 12.5 mg PO DAILY 90 Days Qty: 90 1RF (DME) FreeStyle Guerda 2 Sensor Kit See Rx Instructions .Route Qty: 1 3RF Rx Instructions: As directed amlodipine 5 mg tablet 5 mg PO DAILY 90 Days Qty: 90 1RF omeprazole 20 mg capsule,delayed release(DR/EC) 20 mg PO BID@0630,1630 Qty: 180 1RF carvedilol 6.25 mg tablet 6.25 mg PO BID Qty: 180 0RF Rx Instructions: must administer with a meal/food insulin glargine [Lantus Solostar U-100 Insulin] 100 unit/mL (3 mL) insulin pen 45 unit subcut QAM Qty: 15 3RF meloxicam 15 mg tablet 15 mg PO DAILY PRN (Reason: Pain) Qty: 30 0RF insulin lispro 100 unit/mL insulin pen See Protocol subcut TIDAC Qty: 15 1RF Protocol: Insulin Correction Scale Less than or equal to 110 ---- Give (units): 0 111 to 150 Give (units): 0 151 to 200 Give (units): 2 201 to 250 Give (units): 4 251 to 300 Give (units): 6 301 to 350 Give (units): 8 Greater than 350 Give (units): 10 Call MD if Blood Glucose > : 350 Rx Instructions: 5 units if BG <250, 10 units if Bg > 250 (DME) FreeStyle Guerda 2 Ashdown Misc See Rx Instructions .Route Qty: 1 0RF Rx Instructions: As directed levetiracetam 1,000 mg tablet 2,000 mg PO BID 30 Days Qty: 120 0RF (DME) blood-glucose meter [FreeStyle Lite Meter] Kit See Rx Instructions .ROUTE .MEDSUPPLY Qty: 1 0RF Rx Instructions: As directed (DME) FreeStyle Lite Strips Strip See Rx Instructions .ROUTE .MEDSUPPLY Qty: 300 3RF Rx Instructions: As directed check the BS TID (DME) lancets [FreeStyle Lancets] 28 gauge misc See Rx Instructions .ROUTE .MEDSUPPLY Qty: 300 3RF Rx Instructions: As directed check BS TID Januvia 100 mg tablet 100 mg PO DAILY Qty: 90 0RF lactulose 20 gram/30 mL solution 20 g PO BID Qty: 1200 0RF Metamucil 3.4 gram/5.4 gram powder 1 tsp PO DAILY PRN (Reason: Constipation) Rx Instructions: mix into at least 8 oz of water or juice before administering sucralfate [Carafate] 100 mg/mL Suspension 10 ml PO BEDTIME Rx Instructions: before meals fluticasone propionate 50 mcg/actuation [place],Suspension 1 spray INTRANASAL DAILY PRN (Reason: allergies) Rx Instructions: administer into each nostril acetaminophen [Tylenol Extra Strength] 500 mg tablet 500 mg PO Q6H PRN (Reason: pain) Qty: 30 0RF benzonatate 100 mg capsule 100 mg PO TID PRN (Reason: cough) Qty: 14 0RF naproxen 500 mg tablet 500 mg PO Q8-12H PRN (Reason: pain (scale score 1-3)) Qty: 20 0RF lidocaine 5 % adhesive patch,medicated 1 patch TOPICAL BID Qty: 30 0RF Rx Instructions: leave on most painful area for up to 12 hrs diclofenac sodium [Voltaren Arthritis Pain] 1 % gel 2 g topical QID Qty: 100 0RF Rx Instructions: apply to single elbow, wrist or hand; for hand includes palm/fingers/back of hand cyclobenzaprine 10 mg tablet 10 mg PO DAILY PRN (Reason: muscle spasm) Qty: 14 0RF Print Language: Luxembourger
[2024-05-21 00:43] LABS: Beta-Hydroxybutyrate 0.12 mmol/L (0.02-0.27)
[2024-05-21 00:58] VITALS: BP 134/64; PULSE 94; RESP 16; TEMP 36.9; O2SAT 96
== END 2024-05-21 00:59 | disposition home or self-care (01) ==
PROVIDERS: Physician Assistant; Emergency Provider Internal Medicine; PCP Internal Medicine
DX: R55 Syncope and collapse (principal); I10 Essential (primary) hypertension; R94.31 Abnormal electrocardiogram [ECG] [EKG]; E11.9 Type 2 diabetes mellitus without complications; Z79.899 Other long term (current) drug therapy; Z79.4 Long term (current) use of insulin
CPT/HCPCS: 36415; 80053; 81001; 82010; 82803; 82947; 84484; 85025; 87086; 93005; 99284; 99285

== ENCOUNTER → 2024-05-20 19:54 | Outpatient (BNV) | payer OTHER, SELFPAY | PROVIDERS: Emergency Provider Internal Medicine; PCP Internal Medicine; Visit Provider Internal Medicine Cardiovascular Disease | DX: R94.31 Abnormal electrocardiogram [ECG] [EKG] (principal) | CPT/HCPCS: 93010 ==

== ENCOUNTER 2024-07-17 13:21 | Outpatient (REF) | payer OTHER, SELFPAY | END 2024-07-17 13:22 | disposition home or self-care (01) | LOC: HO.HHCLNP 13:21 | PROVIDERS: Visit Provider Family Medicine | DX: L03.114 Cellulitis of left upper limb (principal) | CPT/HCPCS: 87070; 87077; 87186; 87205 ==

== ENCOUNTER 2024-10-25 12:51 | Outpatient (REF) | payer MEDICAID, SELFPAY ==
[2024-10-25 16:33] LABS: Rheumatoid Factor < 13.0 IU/mL (<15.0)
[2024-10-25 17:41] LABS: Erythrocyte Sedimentation Rate 78 MM/HR (0-20)
[2024-10-30 10:49] LABS: Anti Nuclear Antibody Screen NEGATIVE (NEGATIVE)
== END 2024-10-25 12:52 | disposition home or self-care (01) ==
LOC: HO.HHCL 12:51
PROVIDERS: Visit Provider Family Medicine
DX: M25.541 Pain in joints of right hand (principal)
CPT/HCPCS: 36415; 85652; 86038; 86431

== ENCOUNTER 2025-01-23 11:02 | Outpatient (REF) | payer MEDICAID, SELFPAY ==
--- OUTSIDE RECORDS SUMMARY | 2025-01-23 11:57 | XMS_ITS | Encounter Summary ---
Author Organization [employer] Address [address] [place] [address] Care Team Providers Care Deposit Refund Clerk Name Role Phone Rachael Brown MD Primary Care Provider + Rachael Brown MD Primary Care Provider + Reason for Visit * Reason Onset Date Comments Paperwork Status 08/17/2022 Encounter Details Date Type Department Care Team ([facility] Contact Info) Description 08/17/2022 Telephone [facility] [address] [place], [place] [phone] Rachael Brown MD [address] [place], [place] [phone] Paperwork Status Social History Tobacco Use Types Packs/Day Years Used Date Smoking Tobacco: Never Smokeless Tobacco: Never Alcohol Use Standard Drinks/Week Comments Never 0 (1 standard drink = 0.6 oz pur e alcohol) Comments Unknown Sex and Gender Information Value Date Recorded Sex Assigned at Female 05/10/2022 10:18 AM EDT Legal Sex Female 10:18 AM EDT Gender Identity Female 05/10/2022 10:18 AM EDT Sexual Orientation Choose not to disclose 2021 10:18 AM EDT COVID-19 Exposure Response Date Recorded In the last 10 days, have yo u been in contact with someone who was confirmed or suspected to have Coronavirus/COVID-19? No / Unsure 07/22/2022 10:06 AM EST documented as of this encounter Miscellaneous Notes * Telephone Encounter - Juliet Asif - 08/17/2022 4:25 PM EST Tc from Gayla with [facility] requesting paperwork sent over a month ago to be sign by PCP.Gayla informed she has already talk to Medical Records and Medical record has no status. Gayla stateswithout this document the nurse that has been taking care of pt won't be able to get paid for visits and patient will be discharge from facility. Gayla also informed she will fax over the documents again. Was not specific in what documents were needed. Please contact Gayla at [phone] documented in this encounter Plan of Treatment Upcoming Encounters Date Type Department Care Team (Late st Contact Info) Description 01/30/2025 11:00 AM EDT Office Visit [facility] [address] [place] [address] Rachael Brown MD [address] [place] [address] 02/07/2025 2:30 PM EDT Office Visit [facility] [address] [place] [address] Devora Christy, DDS [address] [place] [address] 03/05/2025 10:30 AM EDT Office Visit [facility] [address] [place] [address] Riccardo Thompson, DDS [address] [place] [address] 03/18/2025 9:00 AM EDT Office Visit [facility] [address] [place] [address] Kait Maldonado 04/26/2025 10:00 AM EDT Office Visit [facility] [address] [place] [address] Wilda Balbuena, OD [address] [place] [address] documented as of this encounter Visit Diagnoses Not on filedocumented in this encounter Care Teams Deposit Refund Clerk Relationship Specialty Start Date End Date Rachael Brown MD [address] [place] [id number] PCP - General Family Medicine 06/28/16 10/25/23 Rachael Brown MD [address] [place] [id number] PCP - General Internal Medicine 07/17/24 documented as of this encounter
[2025-01-23 13:48] LABS: MANUAL DIFF FLAG NO
[2025-01-23 13:55] LABS: Hematocrit 35.6 % (37.0-47.0); Hemoglobin 11.5 g/dl (12.0-16.0); Imm Gran Abs Auto 0.03 X10*3/uL (0.00-0.03); Imm Gran Pct Auto 0.3 % (0.0-0.4); Lymphocytes Absolute Auto 2.7 X10*3/uL (1.2-4.9); Mean Corpuscular HGB Conc 32.3 g/dl (31.0-35.0); Mean Corpuscular Hemoglobin 28.5 pg (27.0-33.0); Mean Corpuscular Volume 88.1 fL (80.0-98.0); NRBC Abs Auto 0.000 X10*3/uL (0.0-0.012); NRBC Pct Auto 0.0 /100WBC (0.0-0.2); Platelet Count 327 X10*3/uL (160-400); Red Blood Count 4.04 X10*6/uL (4.20-5.50); White Blood Count 9.2 X10*3/uL (4.8-10.8)
[2025-01-23 14:43] LABS: Alanine Aminotransferase 12 U/L (0-31); Albumin Level 3.8 g/dL (3.5-5.0); Alkaline Phosphatase 130 U/L (39-117); Anion Gap 12 (12-20); Aspartate Amino Transferase 16 U/L (5-31); Blood Urea Nitrogen 28 mg/dL (9-16); Calcium 9.4 mg/dL (8.4-10.2); Carbon Dioxide 27 mmol/L (22-29); Chloride 108 mmol/L (96-108); Cholesterol 233 mg/dL (<200); Estimated Glomerular Filt Rate 48; HDL Cholesterol 51 mg/dL (>40); Potassium 3.7 mmol/L (3.3-5.1); Sodium 143 mmol/L (135-145); Total Protein 7.2 g/dL (6.5-8.0); Triglycerides 201 mg/dL (<150)
[2025-01-23 17:44] LABS: Reflex LDLD? No
[2025-01-24 04:49] LABS: Syphilis Screen Reactive (Nonreactive)
[2025-01-24 05:09] LABS: HBS Num1 0.51 mIU/mL (0-7.99); HBc Num1 0.08 S/CO (0.00-0.79); HBsAGNum1 0.44 S/CO (0.00-0.99); HIV Num 1 0.05 S/CO (0.00-0.99); Hepatitis A Antibody IgM 0.19 Index (0-0.79); Hepatitis B Surface Antigen Negative (Negative); ~HepC Num1 0.16 S/CO (0.00-0.79); ~Hepatitis A Antibody IgM Nonreactive (Nonreactive); ~Hepatitis B Surface Antibody NONREACTIVE (Nonreactive); ~Hepatitis C Antibody Nonreactive (Nonreactive)
[2025-01-26 08:27] LABS: TS Negative Control Passed; TS Panel A 0; TS Panel B 0; TS Positive Control Passed; TSpotTB Negative (Negative)
[2025-01-30 10:19] LABS: T.Pallidum Particle Agg Test Reactive (Nonreactive)
== END 2025-01-23 11:03 | disposition home or self-care (01) ==
LOC: HO.HHCL 11:02
PROVIDERS: PCP Internal Medicine; Visit Provider Internal Medicine
DX: E11.69 Type 2 diabetes mellitus with other specified complication (principal); Z79.4 Long term (current) use of insulin; F32.1 Major depressive disorder, single episode, moderate
CPT/HCPCS: 36415; 80053; 80061; 82306; 84443; 85025; 86481; 86592; 86704; 86706; 86709; 86780; 86803; 87340; 87389